=== PATIENT | male | born 1950 | race Caucasian/White ===

== ENCOUNTER 2018-05-05 11:03 | Inpatient (IN) | payer MEDICARE, OTHER, SELFPAY ==
[2018-05-05] VITALS (8 sets, daily range): BP systolic 111–156; BP diastolic 69–98; PULSE 77–99; RESP 15–98; TEMP 36.5–37.1; O2SAT 95–98; BMI 29.9; BMI 30.4
[2018-05-05] MEDS: 0.9% Normal Saline 1,000 ML 150 ML IV (11:57)
[2018-05-05 12:10] LABS: Absolute Neutrophil Count 4.6 X10^3/uL (2.0-7.7); Basophil# 0.02 X10^3/uL; Basophil% 0.3 % (0-1); Eosinophil# 0.16 X10^3/uL; Eosinophils% 2.4 % (0-5); Hemoglobin 13.1 g/dl (13.0-16.5); Lymphocyte % 17.8 % (19-41); Mean Corp Hgb Conc 33.6 g/gl (32-36); Mean Corpuscular Hgb 32.8 pg (27.0-32.0); Mean Corpuscular Volume 97.5 fL (80-94); Mean Platelet Vol. 12.2 fl (6.2-12.0); Monocyte# 0.81 X10^3/uL; Neutrophil # 4.56 X10^3/uL (2.7-7.7); Neutrophil % 67.4 % (47-70); Platelet Count 104 K/mm3 (150-450); RBC Distribution Width CV 13.1 % (11.6-14.6); RBC Distribution Width SD 45.9 fl (35.1-43.9); White Blood Count 6.8 K/mm3 (4.4-11.0)
[2018-05-05 12:14] LABS: POSITIVE COUNT NO; POSITIVE DIFFERENTIAL NO; POSITIVE MORPHOLOGY NO
[2018-05-05 12:28] LABS: Anion Gap 9 (5-15); BUN 25 mg/dL (7-18); BUN/Creat Ratio 21.2 RATIO (10-20); Calcium,Total 9.4 mg/dL (8.5-10.1); Chloride 100 mmol/L (98-107); Creatinine, Serum 1.18 mg/dL (0.70-1.30); EST Glomerular Filtration Rate 65 mL/min (>60); Est Glom Filt Rate - Afr Amer 79 mL/min (>60); Estimated Creatinine Clearance 61.01 ml/min; Glucose 109 mg/dL (74-106); Potassium 3.5 mmol/L (3.5-5.1); Sodium Level 139 mmol/L (136-145)
--- NOTE | 2018-05-05 13:20 | ED.VISSUMM ---
- ER Visit Summary Date of Service: 05/05/18 Chief Complaint: Hypotension, syncope History of Present Illness: The patient is a 67 M who developed back pain after lifting a pump last weekend. He was seen at the [facility] and had a syncopal event earlier this week. It was felt to likely be vasovagal syncope secondary to pain. He was sent to [facility] ED for evaluation. Labs were performed and a CT of abdomen and pelvis which were grossly unremarkable. Patient states he is still weak and lightheaded. He still gets episodes with near syncope and his blood pressure is very low. This morning when he is not feeling well blood pressure in the right arm is 90/50 and left arm is 86/48. Patient states his blood pressure is normal in the 140s. Physical Examination: Blood pressure is 111/69, temperature 97.7, heart rate 85, respiratory rate 16, pulse ox 98% on room air. Patient sitting upright in bed. He is in no acute distress. Heart is regular rate and rhythm. Lung sounds are clear. Abdomen is soft nontender. Extremity examination was 2+ left lower extremity edema which patient states is chronic and unchanged from baseline. Neuro exam reveals no focal deficits. Test Results: EKG is sinus 80 with no sign of acute ischemia. CBC and chemistry studies are unremarkable. Troponin negative. Chest x-ray shows borderline cardiomegaly. There is mildly tortuous aorta noted. Mild paratracheal mediastinal fullness is likely secondary to a thyroid goiter. Emergency Department Course and Treatment: Patient received IV fluids here. Blood pressure has maintained stable. I am unsure if the patient may be having arrhythmias where he becomes near syncopal with low blood pressure. I will speak with hospitalist regarding an observation stay overnight to monitor for this. Treatment Plan: [] Disposition: Admit Impression: 1. Recurrent dizziness 2. Recent syncope 3. Hypotension, improved This note was generated with [employer] dictation software. It may contain incorrect words, spelling, and punctuation that were not noted in review of the chart prior to signing ED Disposition - Plan for ED Patient: Chief Complaint: Hypotension Referrals: Herminio Yee MD [Primary Care Provider] -
--- NOTE | 2018-05-05 13:23 | ED.DCSUM_ITS ---
- ER Visit Summary Date of Service: 05/05/18 Chief Complaint: Hypotension, syncope History of Present Illness: The patient is a 67 M who developed back pain after lifting a pump last weekend. He was seen at the [facility] and had a syncopal event earlier this week. It was felt to likely be vasovagal syncope secondary to pain. He was sent to [facility] ED for evaluation. Labs were performed and a CT of abdomen and pelvis which were grossly unremarkable. Patient states he is still weak and lightheaded. He still gets episodes with near syncope and his blood pressure is very low. This morning when he is not feeling well blood pressure in the right arm is 90/50 and left arm is 86/48. Patient states his blood pressure is normal in the 140s. Physical Examination: Blood pressure is 111/69, temperature 97.7, heart rate 85 , respiratory rate 16, pulse ox 98% on room air. Patient sitting upright in bed. He is in no acute distress. Heart is regular rate and rhythm. Lung sounds are clear. Abdomen is soft nontender. Extremity examination was 2+ left lower extremity edema which patient states is chronic and unchanged from baseline. Neuro exam reveals no focal deficits. Test Results: EKG is sinus 80 with no sign of acute ischemia. CBC and chemistry studies are unremarkable. Troponin negative. Chest x-ray shows borderline cardiomegaly. There is mildly tortuous aorta noted. Mild paratracheal mediastinal fullness is likely secondary to a thyroid goiter. Emergency Department Course and Treatment: Patient received IV fluids here. Blood pressure has maintained stable. I am unsure if the patient may be having arrhythmias where he becomes near syncopal with low blood pressure. I will speak with hospitalist regarding an observation stay overnight to monitor for this. Treatment Plan: [] Disposition: Admit Impression: 1. Recurrent dizziness 2. Recent syncope 3. Hypotension, improved This note was generated with [employer] dictation software. It may contain incorrect words, spelling, and punctuation that were not noted in review of the chart prior to signing ED Disposition - Plan for ED Patient: Chief Complaint: Hypotension Referrals: Herminio Yee MD [Primary Care Provider] -
--- NOTE | 2018-05-05 13:48 | PCM.HP.STD ---
<Karina Swift - Last Filed: 05/05/18 15:43> Problem List (1) Hypertension Status: Chronic (2) Hyperlipidemia Status: Chronic (3) GERD (gastroesophageal reflux disease) Status: Chronic (4) CAD (coronary artery disease) Status: Chronic (5) COPD (chronic obstructive pulmonary disease) Status: Chronic (6) RAYRAY (obstructive sleep apnea) Status: Chronic (7) BPH (benign prostatic hyperplasia) Status: Chronic History of Present Illness Date of Admission: 05/05/18 Chief Complaint: Dizziness, low blood pressure, lower back pain. The patient is a 67 year old M who presents to the emergency room with multiple complaints including low blood pressure, dizziness, low back pain with radiation bilateral groin, lower extremity swelling. Patient notes last Tuesday he was lifting an object and feels that he injured his back. He has had significant lumbar pain since that time. He sought medical attention at the [facility] regarding his back pain and was noted to have a syncopal episode during office visit. He was transferred to [facility] at that time. He states he was discharged with no significant findings. He notes continued lower back pain with radiation to bilateral groin, a lateral lower extremity swelling and low blood pressure with associated dizziness. He denies chest pain, shortness of breath. Denies further syncopal episodes. Denies numbness, tingling. Denies loss of bowel or bladder function. He has a past medical history of hypertension, hyperlipidemia, CAD, COPD, BPH, RAYRAY, GERD. Past Medical History Past Medical History (Chronic Problems): Chronic Problems Hypertension (Chronic) Hyperlipidemia (Chronic) GERD (gastroesophageal reflux disease) (Chronic) CAD (coronary artery disease) (Chronic) COPD (chronic obstructive pulmonary disease) (Chronic) RAYRAY (obstructive sleep apnea) (Chronic) BPH (benign prostatic hyperplasia) (Chronic) Allergies No Known Allergies Allergy (Verified 05/05/18 11:59) Home Medications: Ambulatory Orders Medication Instructions Recorded Aspirin [Aspir-Low] 40.5 mg PO DAILY 06/29/17 Atorvastatin Calcium 10 mg PO QHS 06/29/17 Doxazosin Mesylate 8 mg PO QHS 06/29/17 Hydrochlorothiazide [Hctz] 25 mg PO DAILY 06/29/17 Omeprazole 20 mg PO DAILY 06/29/17 Docusate Sodium [Stool Softener] 100 mg PO DAILY PRN PRN 05/05/18 Naproxen Sodium [Anaprox Ds] 550 mg PO Q12H PRN PRN 05/05/18 Tizanidine HCl [Zanaflex] 4 mg PO Q8H PRN PRN 05/05/18 Surgical History: - - Left lung partial resection, bilateral cataract extraction, back surgery ?3, IVC filter placement. Psychiatric History: No pertinent psych hx Lives: Spouse/ Significant Other Smoking Status: Former smoker Alcohol: None Drugs: None - *Family History Maternal History Items: Stroke, - - Alzheimer's disease Paternal History Items: Diabetes, Stroke Review of Systems Constitutional: Denies: Chills, Fever, Weight Change HEENT: Denies: Head Aches, Sinus Congestion, Sinus Drainage Cardiovascular: Reports: Edema - Bilateral lower extremities, Light Headedness, Syncope. Denies: Chest Pain, Chest Pressure, Palpitations Respiratory: Denies: Cough, Shortness of breath at rest, Sputum production Gastrointestinal: Reports: Constipation. Denies: Abdominal Pain, Diarrhea, Nausea, Vomiting Genitourinary: Reports: Hesitancy. Denies: Dysuria, Incontinence Musculoskeletal: Reports: Back Pain - Lower Skin: Denies: Rash, Wounds Neurological: Denies: Numbness, Tingling, Focal weakness Psychiatric: Denies: Anxiety, Depression, Homicidal Ideations, Suicidal Ideations Hematologic/ Lymphatic: Denies: Easy Bruising, Easy Bleeding VTE Information - Inpt Only VTE Present on Admission: No VTE Mechan Device Prophylaxis: None VTE Pharm Prophylaxis ordered?: Yes - Physical Exam General: Alert, Oriented x3, Cooperative, No apparent distress HEENT: Atraumatic, PERRLA, EOMI, Normocephalic Neck: Supple, No JVD, Negative Carotid Bruits Lungs: Clear to auscultation, Diminished Cardiovascular: Regular rate, Regular Rhythm, Normal S1, Normal S2, No murmurs Abdomen: Bowel Sounds Present, Soft, Non Tender, Non-Distended, Obese Extremities: No clubbing, No cyanosis, Edema - Nonpitting bilateral extremity Skin: No rashes, No breakdown Musculoskeletal: No Tenderness to Palpation of Joints or Extremities Neurological: Cranial nerves II-XII grossly intact, Neuro grossly intact Psych/Mental Status: Normal Affect, Appropriate Vital Signs Temp Pulse Resp BP Pulse Ox 97.7 F L 77 15 156/98 H 97 05/05/18 11:04 05/05/18 13:43 05/05/18 13:43 05/05/18 13:43 05/05/18 13:43 Oxygen Delivery Method Room Air Weight: 209 lb Body Mass Index (BMI) 29.9 Laboratory Tests Past 24 Hrs 05/05/18 05/05/18 11:57 11:57 WBC 6.8 RBC 4.00 L Hgb 13.1 Hct 39.0 L MCV 97.5 H MCH 32.8 H MCHC 33.6 RDW 13.1 RDW Differential 45.9 H Plt Count 104 L MPV 12.2 H Immature Gran % (Auto) 0.100 Neut % (Auto) 67.4 Lymph % (Auto) 17.8 L [place] % (Auto) 12.0 H Eos % (Auto) 2.4 Baso % (Auto) 0.3 Absolute Neuts (auto) 4.6 Absolute Lymphs (auto) 1.20 Total Counted Not Reportable Sodium 139 Potassium 3.5 Chloride 100 Carbon Dioxide 30.0 Anion Gap 9 BUN 25 H Creatinine 1.18 Estim Creat Clear Calc 61.01 Est GFR (MDRD) Af Amer 79 Est GFR (MDRD) Non-Af 65 BUN/Creatinine Ratio 21.2 H Glucose 109 H Calcium 9.4 Troponin I < 0.015 Assessment/Plan 1. Recent syncope, recurrent dizziness-recent workup at [facility] included CT of abdomen pelvis due to lower abdominal and back pain which demonstrated evidence of cystitis, no other acute abnormalities. Troponin negative ?1. Repeat second troponin. Check UA. Check orthostatic vitals. Check TSH, mg. Obtain echocardiogram. 2. Acute on chronic lumbar back pain-history of back surgery ?3. Obtain MRI lumbar spine. PRN pain regimen. 3. CAD-cardiac cath in 2010 with no documented intervention, managed medically. Patient had recent stress test 01/16/2018 which was negative for ischemia which was completed at [facility]. LVEF 66%. Continue aspirin, statin. 4. Hypertension-stable, continue to monitor. Hold HCTZ regimen for now. 5. Hyperlipidemia-continue statin. 6. COPD-no acute exacerbation. 7. GERD-continue PPI regimen. 8. BPH-continue home doxazosin regimen. 9. History of tobacco use-encourage continued cessation. 10. RAYRAY-has not tolerated CPAP in the past. 11. 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 DVT prophylaxis-Lovenox subcu. This patient was seen by S[facility] Skelton under the supervision of Dr. Helton. <Mick Heltonolas Jose Carlos - Last Filed: 05/05/18 16:46> History of Present Illness The patient is a 67 year old M [] Past Medical History Allergies No Known Allergies Allergy (Verified 05/05/18 11:59) - Physical Exam Vital Signs Temp Pulse Resp BP Pulse Ox 97.7 F L 77 15 156/98 H 97 05/05/18 11:04 05/05/18 13:43 05/05/18 13:43 05/05/18 13:43 05/05/18 13:43 Oxygen Delivery Method Room Air Weight: 212 lb Body Mass Index (BMI) 30.4 Laboratory Tests Past 24 Hrs 05/05/18 05/05/18 15:25 15:35 Magnesium 2.1 Troponin I < 0.015 TSH 0.44 Urine Color Yellow Urine Clarity Clear Urine pH 6.5 Ur Specific [place] 1.010 Urine Protein Negative Urine Glucose (UA) Normal Urine Ketones Negative Urine Occult Blood Negative Urine Nitrite Negative Urine Bilirubin Negative Urine Urobilinogen Normal Ur Leukocyte Esterase Negative Urine RBC 0 SEEN Urine WBC 0 SEEN Ur Squamous Epith Cells 0 SEEN Urine Bacteria 0 SEEN Urine Mucus 0 SEEN Assessment/Plan Addendum: Dr. Helton I personally examined the patient and reviewed the chart. I agree with the above. 67 yo M [facility] and [facility] to [facility] who felt this was vasovagal. He presents today after having weakness and bilateral groin pain and ankle swelling. No SOB or CP General: Alert, Oriented x3, Cooperative, No apparent distress HEENT: Atraumatic, EOMI, Normocephalic Oral: Moist Mucosa Neck: Supple, No JVD Lungs: Clear to auscultation, Normal air movement, No rhonchi, No wheeze, No rales Cardiovascular: Regular rate, Regular Rhythm, Normal S1, Normal S2, No murmurs Abdomen: Soft, Non Tender, Non-Distended, No Hepato-splenomegaly Extremities: 2+ non-pitting edema, Capillary Refill Less than 3 Seconds Skin: No rashes, No breakdown Psych/Mental Status: Normal Affect, Appropriate 1. Weakness/Groin pain/Syncope - Troponinx2 negative - Doppler US of his legs so b/l extensive DVTs - Start Xarelto - Echo in the am - Telemetry and orthostatic VS Code Visit Inpatient E&M: 68146 Init Hosp L3
[2018-05-05 15:43] LABS: Bacteria 0 SEEN /hpf (None Seen); Mucous, Urine 0 SEEN /hpf (<or=2+); Red Blood Cells-Urine 0 SEEN /hpf (0-5); Squamous Epithelial Cells - UA 0 SEEN /hpf (0-5); White Blood Cells 0 SEEN /hpf (0-5)
[2018-05-05 15:50] LABS: Color, Urine Yellow (Yellow); Glucose, Dipstick Normal (Normal); Ketone-Dipstick Negative (Negative); Leukocyte Esterase-Dipstick Negative /ul (Negative); Nitrite-Dipstick Negative (Negative); Occult Blood-Urine Negative /ul (Negative); Protein-Dipstick Negative (Negative); Urine Bilirubin Dipstick Negative (Negative); Urine Clarity Clear (Clear); Urine Urobilinogen Normal (Normal); Urine pH 6.5 (5.0 - 8.0)
[2018-05-05 16:21] LABS: Magnesium 2.1 mg/dL (1.6-2.6); Thyroid Stim Hormone (TSH) 0.44 uIU/mL (0.358-3.74)
[2018-05-05] MEDS: Rivaroxaban 15 MG Tablet PO (17:41)
[2018-05-05] MEDS: 0.9% Normal Saline 1,000 ML 100 ML IV (17:41)
[2018-05-05] MEDS: Atorvastatin Calcium 10 MG Tablet PO (22:46)
[2018-05-05] MEDS: Doxazosin 4 MG Tablet 8 MG PO (22:46)
[2018-05-06] VITALS (12 sets, daily range): BP systolic 108–162; BP diastolic 70–94; PULSE 55–96; RESP 16; TEMP 36.4–36.5; O2SAT 94–97
[2018-05-06] MEDS: 0.9% Normal Saline 1,000 ML 100 ML IV ×2 (03:45→16:31)
[2018-05-06 05:37] LABS: Absolute Neutrophil Count 4.1 X10^3/uL (2.0-7.7); Basophil# 0.02 X10^3/uL; Basophil% 0.3 % (0-1); Eosinophil# 0.26 X10^3/uL; Eosinophils% 3.7 % (0-5); Hematocrit 36.5 % (40-54); Hemoglobin 12.3 g/dl (13.0-16.5); Lymphocyte % 25.8 % (19-41); Mean Corp Hgb Conc 33.7 g/gl (32-36); Mean Corpuscular Hgb 33.1 pg (27.0-32.0); Mean Corpuscular Volume 98.1 fL (80-94); Mean Platelet Vol. 11.9 fl (6.2-12.0); Monocyte# 0.78 X10^3/uL; Monocyte% 11.2 % (0-10); Neutrophil % 58.9 % (47-70); Platelet Count 104 K/mm3 (150-450); RBC Distribution Width CV 13.2 % (11.6-14.6); RBC Distribution Width SD 46.4 fl (35.1-43.9); Red Blood Count 3.72 M/mm3 (4.6-6.2)
[2018-05-06 05:40] LABS: POSITIVE COUNT NO; POSITIVE DIFFERENTIAL NO; POSITIVE MORPHOLOGY NO
[2018-05-06 05:54] LABS: ALB/GLOB Ratio 1.3 RATIO (0.9-2.4); AST(SGOT) 16 U/L (15-37); Alanine Aminotransfer ALT/SGPT 18 U/L (16-61); Albumin, Serum 3.6 g/dL (3.2-5.0); Alkaline Phosphatase 92 U/L (45-117); Anion Gap 8 (5-15); BUN 24 mg/dL (7-18); BUN/Creat Ratio 22.9 RATIO (10-20); Calcium,Total 8.9 mg/dL (8.5-10.1); Chloride 105 mmol/L (98-107); Creatinine, Serum 1.05 mg/dL (0.70-1.30); EST Glomerular Filtration Rate 74 mL/min (>60); Est Glom Filt Rate - Afr Amer 90 mL/min (>60); Estimated Creatinine Clearance 68.56 ml/min; Globulin 2.8 g/dL (2.2-4.2); Glucose 94 mg/dL (74-106); Potassium 3.4 mmol/L (3.5-5.1); Protein, Total 6.4 g/dL (6.4-8.2); Sodium Level 140 mmol/L (136-145)
[2018-05-06] MEDS: Aspirin E.C. 81 MG Tablet PO (08:58)
[2018-05-06] MEDS: Rivaroxaban 15 MG Tablet PO ×2 (08:59→16:31)
[2018-05-06] MEDS: Pantoprazole Sodium 20 MG Tablet PO (08:59)
[2018-05-06] MEDS: tiZANidine HCl 2 MG Tablet 4 MG PO (08:59)
--- NOTE | 2018-05-06 10:22 | CASEMGMT ---
RN CM assessment complete. See Link. DC Plan: Home -Intro role of CM to patient and his . Discussed needs at home. They decline any needs at this time, pt has walker and can provide transportation. -Discussed possible need for Xarelto per [employer]. Pt uses [facility] for prescriptions. Will need to have prescription filled @ local pharmacy ([facility]). Xarelto savings card given to patient, however can not guarentee discount as pt does not have any commercial or medicare drug coverage. If Xarelto savings card does not provide discount, recommended pt have pharmacy do partial fill of script and then go to [place] for rest of prescription. Reviewed above with pt and his . No further questions. Ganga SMITHN RN ACM
[2018-05-06 11:31] LABS: PSA,Total- Diagnostic 1.11 ng/mL (0.0-4.0)
--- NOTE | 2018-05-06 12:49 | PCM.PROGNOTE ---
<Karina Swift - Last Filed: 05/06/18 12:56> Subjective: Patient seen and examined. Denies further dizziness. Continues to complain of lower back pain, increased with movement. Denies other current complaints. Denies chest pain, shortness of breath. - Physical Exam General: Alert, Oriented x3, Cooperative, No apparent distress HEENT: Atraumatic, PERRLA, EOMI, Normocephalic Neck: Supple, No JVD, Negative Carotid Bruits Lungs: Clear to auscultation, Normal air movement Cardiovascular: Regular rate, Regular Rhythm, Normal S1, Normal S2, No murmurs Abdomen: Bowel Sounds Present, Soft, Non Tender, Non-Distended, Obese Extremities: No clubbing, No cyanosis, Capillary Refill Less than 3 Seconds, Edema - Minimal nonpitting lower extremity edema Skin: No rashes, No breakdown Musculoskeletal: No Tenderness to Palpation of Joints or Extremities Neurological: Cranial nerves II-XII grossly intact, Neuro grossly intact Psych/Mental Status: Normal Affect, Appropriate Vital Signs Temp Pulse Resp BP Pulse Ox 97.7 F L 55 L 16 115/75 96 05/06/18 10:30 05/06/18 11:03 05/06/18 10:30 05/06/18 10:30 05/06/18 10:30 Oxygen Delivery Method Room Air Weight: 212 lb Body Mass Index (BMI) 30.4 Orthostatic Vital Signs Start: 05/06/18 04:47 Freq: q24h Status: Active Protocol: Activity Type Activity Date Activity User E-Sign Co-Sign Detail Recorded Client Recorded Date Recorded By Document 05/06/18 04:35 CAD [id number] 05/06/18 04:48 CAD 05/06/18 04:35 Orthostatic Vitals Standing -Blood Pressure (90/60-120/80) 108/78 -Extremity Use Right Arm -Pulse Rate (60-100) 96 Sitting -Blood Pressure (90/60-120/80) 110/80 -Extremity Use Right Arm -Pulse Rate (60-100) 91 Lying -Blood Pressure (90/60-120/80) 135/73 H -Extremity Use Right Arm -Pulse Rate (60-100) 90 Intake and Output for Last 24 Hours 05/04/18 05/05/18 05/06/18 23:59 23:59 23:59 Intake Total 680 / 680 1430 / 1430 Balance 680 / 680 1430 / 1430 Laboratory Tests Past 24 Hrs 05/05/18 05/05/18 05/06/18 15:25 15:35 05:14 WBC 7.0 RBC 3.72 L Hgb 12.3 L Hct 36.5 L MCV 98.1 H MCH 33.1 H MCHC 33.7 RDW 13.2 RDW Differential 46.4 H Plt Count 104 L MPV 11.9 Immature Gran % (Auto) 0.100 Neut % (Auto) 58.9 Lymph % (Auto) 25.8 Creek % (Auto) 11.2 H Eos % (Auto) 3.7 Baso % (Auto) 0.3 Absolute Neuts (auto) 4.1 Absolute Lymphs (auto) 1.80 Total Counted Not Reportable Sodium Potassium Chloride Carbon Dioxide Anion Gap BUN Creatinine Estim Creat Clear Calc Est GFR (MDRD) Af Amer Est GFR (MDRD) Non-Af BUN/Creatinine Ratio Glucose Calcium Magnesium 2.1 Total Bilirubin AST ALT Alkaline Phosphatase Troponin I < 0.015 Total Protein Albumin Globulin Albumin/Globulin Ratio Total PSA TSH 0.44 Urine Color Yellow Urine Clarity Clear Urine pH 6.5 Ur Specific [place] 1.010 Urine Protein Negative Urine Glucose (UA) Normal Urine Ketones Negative Urine Occult Blood Negative Urine Nitrite Negative Urine Bilirubin Negative Urine Urobilinogen Normal Ur Leukocyte Esterase Negative Urine RBC 0 SEEN Urine WBC 0 SEEN Ur Squamous Epith Cells 0 SEEN Urine Bacteria 0 SEEN Urine Mucus 0 SEEN 05/06/18 05/06/18 05:14 05:14 WBC RBC Hgb Hct MCV MCH MCHC RDW RDW Differential Plt Count MPV Immature Gran % (Auto) Neut % (Auto) Lymph % (Auto) Creek % (Auto) Eos % (Auto) Baso % (Auto) Absolute Neuts (auto) Absolute Lymphs (auto) Total Counted Sodium 140 Potassium 3.4 L Chloride 105 Carbon Dioxide 27.0 Anion Gap 8 BUN 24 H Creatinine 1.05 Estim Creat Clear Calc 68.56 Est GFR (MDRD) Af Amer 90 Est GFR (MDRD) Non-Af 74 BUN/Creatinine Ratio 22.9 H Glucose 94 Calcium 8.9 Magnesium Total Bilirubin 1.00 AST 16 ALT 18 Alkaline Phosphatase 92 Troponin I Total Protein 6.4 Albumin 3.6 Globulin 2.8 Albumin/Globulin Ratio 1.3 Total PSA 1.11 TSH Urine Color Urine Clarity Urine pH Ur Specific [place] Urine Protein Urine Glucose (UA) Urine Ketones Urine Occult Blood Urine Nitrite Urine Bilirubin Urine Urobilinogen Ur Leukocyte Esterase Urine RBC Urine WBC Ur Squamous Epith Cells Urine Bacteria Urine Mucus Medical Necessity - Tobacco Use Smoking Status: Former smoker Tobacco Use: Cigarettes Assessment/Plan 1. Acute bilateral extensive DVT/right PE-initiated on Xarelto. Patient has a history of PE/DVT status post IVC filter placement approximately 10 years ago. Pulmonary consulted. CT of chest showed pulmonary embolism on the right. Patient denies chest pain, shortness of breath. Echocardiogram report pending. 2. Hypotension, dizziness-improved. Recent syncopal episode in which patient underwent workup at [facility] included CT of abdomen pelvis due to lower abdominal and back pain which demonstrated evidence of cystitis, no other acute abnormalities. Troponin negative ?2. UA unremarkable. Orthostatic vitals negative. Echocardiogram pending as noted above. 2. Acute on chronic lumbar back pain-history of back surgery ?3. MRI of lumbar spine showed small L4-L5 disc extrusion, status post left laminectomy at L5-S1, L5-S1 foraminal stenosis. 3. CAD-cardiac cath in 2010 with no documented intervention, managed medically. Patient had recent stress test 01/16/2018 which was negative for ischemia which was completed at [facility]. LVEF 66%. Continue aspirin, statin. 4. Hypertension-stable, continue to monitor. Hold HCTZ regimen for now. 5. Hyperlipidemia-continue statin. 6. COPD-no acute exacerbation. 7. GERD-continue PPI regimen. 8. BPH-continue home doxazosin regimen. 9. History of tobacco use-encourage continued cessation. 10. RAYRAY-has not tolerated CPAP in the past. DVT prophylaxis-Xarelto. This patient was seen by [facility] Skelton under the supervision of Dr. Berry. <Nancy Berry - Last Filed: 05/06/18 15:52> - Physical Exam Vital Signs Temp Pulse Resp BP Pulse Ox 97.7 F L 55 L 16 115/75 96 05/06/18 10:30 05/06/18 11:03 05/06/18 10:30 05/06/18 10:30 05/06/18 10:30 Oxygen Delivery Method Room Air Weight: 212 lb Body Mass Index (BMI) 30.4 Orthostatic Vital Signs Start: 05/06/18 04:47 Freq: q24h Status: Active Protocol: Activity Type Activity Date Activity User E-Sign Co-Sign Detail Recorded Client Recorded Date Recorded By Document 05/06/18 04:35 CAD [id number] 05/06/18 04:48 CAD 05/06/18 04:35 Orthostatic Vitals Standing -Blood Pressure (90/60-120/80) 108/78 -Extremity Use Right Arm -Pulse Rate (60-100) 96 Sitting -Blood Pressure (90/60-120/80) 110/80 -Extremity Use Right Arm -Pulse Rate (60-100) 91 Lying -Blood Pressure (90/60-120/80) 135/73 H -Extremity Use Right Arm -Pulse Rate (60-100) 90 Intake and Output for Last 24 Hours 05/04/18 05/05/18 05/06/18 23:59 23:59 23:59 Intake Total 680 / 680 1430 / 1430 Balance 680 / 680 1430 / 1430 Laboratory Tests Past 24 Hrs 05/05/18 05/05/18 05/06/18 15:25 15:35 05:14 WBC 7.0 RBC 3.72 L Hgb 12.3 L Hct 36.5 L MCV 98.1 H MCH 33.1 H MCHC 33.7 RDW 13.2 RDW Differential 46.4 H Plt Count 104 L MPV 11.9 Immature Gran % (Auto) 0.100 Neut % (Auto) 58.9 Lymph % (Auto) 25.8 Creek % (Auto) 11.2 H Eos % (Auto) 3.7 Baso % (Auto) 0.3 Absolute Neuts (auto) 4.1 Absolute Lymphs (auto) 1.80 Total Counted Not Reportable Sodium Potassium Chloride Carbon Dioxide Anion Gap BUN Creatinine Estim Creat Clear Calc Est GFR (MDRD) Af Amer Est GFR (MDRD) Non-Af BUN/Creatinine Ratio Glucose Calcium Magnesium 2.1 Total Bilirubin AST ALT Alkaline Phosphatase Troponin I < 0.015 Total Protein Albumin Globulin Albumin/Globulin Ratio Total PSA TSH 0.44 Urine Color Yellow Urine Clarity Clear Urine pH 6.5 Ur Specific [place] 1.010 Urine Protein Negative Urine Glucose (UA) Normal Urine Ketones Negative Urine Occult Blood Negative Urine Nitrite Negative Urine Bilirubin Negative Urine Urobilinogen Normal Ur Leukocyte Esterase Negative Urine RBC 0 SEEN Urine WBC 0 SEEN Ur Squamous Epith Cells 0 SEEN Urine Bacteria 0 SEEN Urine Mucus 0 SEEN 05/06/18 05/06/18 05:14 05:14 WBC RBC Hgb Hct MCV MCH MCHC RDW RDW Differential Plt Count MPV Immature Gran % (Auto) Neut % (Auto) Lymph % (Auto) Creek % (Auto) Eos % (Auto) Baso % (Auto) Absolute Neuts (auto) Absolute Lymphs (auto) Total Counted Sodium 140 Potassium 3.4 L Chloride 105 Carbon Dioxide 27.0 Anion Gap 8 BUN 24 H Creatinine 1.05 Estim Creat Clear Calc 68.56 Est GFR (MDRD) Af Amer 90 Est GFR (MDRD) Non-Af 74 BUN/Creatinine Ratio 22.9 H Glucose 94 Calcium 8.9 Magnesium Total Bilirubin 1.00 AST 16 ALT 18 Alkaline Phosphatase 92 Troponin I Total Protein 6.4 Albumin 3.6 Globulin 2.8 Albumin/Globulin Ratio 1.3 Total PSA 1.11 TSH Urine Color Urine Clarity Urine pH Ur Specific [place] Urine Protein Urine Glucose (UA) Urine Ketones Urine Occult Blood Urine Nitrite Urine Bilirubin Urine Urobilinogen Ur Leukocyte Esterase Urine RBC Urine WBC Ur Squamous Epith Cells Urine Bacteria Urine Mucus Assessment/Plan She is seen by Karina Swift nurse practitioner under my supervision. Patient admitted with complaint of low blood pressure, dizziness and low back pain which radiated to the groin as well as bilateral lower extremity swelling. Duplex ultrasound done was positive for extensive DVT in the left lower extremity and also some DVT in the right lower extremity. CT PE done today was positive for right-sided segmental pulmonary emboli. Patient seen and examined today. He had no complaints. Lightheadedness and dizziness had resolved. He denied any fever chills, cough or chest pain, shortness of breath, abdominal pain, diarrhea vomiting. Patient's blood pressure has been within normal range since admission. His hydrochlorothiazide has been on hold. He had syncope at the [facility] after he strained his back a week ago and was also seen at [facility] on that account. Blood pressure was not low when he came and he has not been hypotensive since this admission. Based on history of hypotension, there was concern for massive PE but this has been ruled out by her PCP and and only a small segmental right pulmonary artery. Patient also has a IVC filter in place from a previous DVT about 10 years ago. He stopped taking his oral anticoagulants after about a year and has pretty much been noncompliant since. He has had an old IVC filter in place and it has never been removed. Patient unable to give us any further history about the DVT and felt. o/e: Vital Signs Height 5 ft 10 in Weight: 212 lb Weight in Pounds 212.0 lbs Pulse Ox 96 Temperature 97.7 F Pulse Rate [Standing] 96 Pulse Rate [Sitting] 91 Pulse Rate [Lying] 90 Pulse Rate 55 Respiratory Rate 16 Blood Pressure [Standing] 108/78 Blood Pressure [Sitting] 110/80 Blood Pressure [Lying] 135/73 Blood Pressure 115/75 Blood Pressure Position Semi-Fowlers General: Alert, Oriented x3, Cooperative, No apparent distress HEENT: Atraumatic, PERRLA, EOMI, Normocephalic Neck: Supple, No JVD, Negative Carotid Bruits Lungs: Clear to auscultation, Normal air movement Cardiovascular: Regular rate, Regular Rhythm, Normal S1, Normal S2, No murmurs Abdomen: Bowel Sounds Present, Soft, Non Tender, Non-Distended, Obese Extremities: No clubbing, No cyanosis, Capillary Refill Less than 3 Seconds, Edema - Minimal nonpitting lower extremity edema Skin: No rashes, No breakdown Musculoskeletal: No Tenderness to Palpation of Joints or Extremities Neurological: Cranial nerves II-XII grossly intact, Neuro grossly intact Psych/Mental Status: Normal Affect, Appropriate Patient is being managed for bilateral DVT and PE. It does appear to be an unprovoked DVT. CT of the abdomen and pelvis done while he was at [facility] on 05/03/2018 for syncopal attack was negative for any evidence of malignancy- checked in [facility] and copy printed for records here. CT PE done today also showed no evidence of any lung mass. PSAs within normal limits. Says he had a colonoscopy within the last 10 years that was normal-not sure where he had it done. 2D echo done showed moderate LV concentric hypertrophy with EF of 55-60%, mildly dilated RV with normal systolic function, mildly enlarged left atrium, RVSP of 40mmHg, indicating pulmonary hypertension. Patient was started on anticoagulation with Xarelto. Will continue. Discussed with pulmonology. IVC filter has been replaced with a locked so likely need to be removed by an experienced vascular surgeon. Will refer to vascular surgery and outpatient basis to follow-up. Will defer hypercoagulability panel for now in light of acute phase of DVT. Will likely need anticoagulation for lifelong as this is a second DVT. When able to get any information about first DVT about whether was provoked or unprovoked. This current DVT does not seem to have a clear provoking factor. Since PE is quite small, it is unclear whether the elevated RVSP of 40mmHg is due to this, or there is another precipitating factor. Will benefit from a follow up 2D echo in 3-6 months to monitor RVSP. Agree with rest of Karina Swift's note, assessment and plan. Code Visit Inpatient E&M: [id number] Subs Hosp L3
[2018-05-06] MEDS: oxyCODONE 5 MG Tablet PO ×2 (17:38→22:24)
[2018-05-06] MEDS: Acetaminophen 500 MG Tablet PO (17:41)
[2018-05-06] MEDS: Docusate Sodium 100 MG Capsule PO (17:46)
[2018-05-06] MEDS: Atorvastatin Calcium 10 MG Tablet PO (22:24)
[2018-05-06] MEDS: Doxazosin 4 MG Tablet 8 MG PO (22:24)
[2018-05-06] MEDS: Magnesium Hydroxide 30 ML UDC PO (22:25)
[2018-05-07] VITALS (7 sets, daily range): BP systolic 112–148; BP diastolic 68–91; PULSE 82–96; RESP 16–18; TEMP 36.8–37.1; O2SAT 96–98
[2018-05-07] MEDS: 0.9% Normal Saline 1,000 ML 100 ML IV (01:45)
[2018-05-07] MEDS: oxyCODONE 5 MG Tablet PO ×2 (04:16→08:47)
[2018-05-07 05:50] LABS: Hematocrit 35.9 % (40-54); Hemoglobin 11.9 g/dl (13.0-16.5); Mean Corp Hgb Conc 33.1 g/gl (32-36); Mean Corpuscular Volume 99.4 fL (80-94); Mean Platelet Vol. 11.6 fl (6.2-12.0); Platelet Count 126 K/mm3 (150-450); RBC Distribution Width CV 13.2 % (11.6-14.6); RBC Distribution Width SD 47.1 fl (35.1-43.9); Red Blood Count 3.61 M/mm3 (4.6-6.2); White Blood Count 6.5 K/mm3 (4.4-11.0)
[2018-05-07 05:55] LABS: Scan Indicated on CBC? Y/N NO
[2018-05-07 06:00] LABS: Anion Gap 10 (5-15); BUN 19 mg/dL (7-18); BUN/Creat Ratio 18.4 RATIO (10-20); Calcium,Total 8.7 mg/dL (8.5-10.1); Chloride 106 mmol/L (98-107); Creatinine, Serum 1.03 mg/dL (0.70-1.30); EST Glomerular Filtration Rate 76 mL/min (>60); Est Glom Filt Rate - Afr Amer 92 mL/min (>60); Estimated Creatinine Clearance 69.89 ml/min; Glucose 93 mg/dL (74-106); Potassium 3.7 mmol/L (3.5-5.1); Sodium Level 143 mmol/L (136-145)
[2018-05-07] MEDS: Rivaroxaban 15 MG Tablet PO (08:43)
--- NOTE | 2018-05-07 10:02 | PCM.DC ---
- Discharge Diagnoses Current Active Problems: Current Active and Chronic Problems Hypertension (Chronic) Hyperlipidemia (Chronic) GERD (gastroesophageal reflux disease) (Chronic) CAD (coronary artery disease) (Chronic) COPD (chronic obstructive pulmonary disease) (Chronic) RAYRAY (obstructive sleep apnea) (Chronic) BPH (benign prostatic hyperplasia) (Chronic) You will use the following diet at home:: Cardiac Discharge Activity: Return to Normal Activity Call your doctor if you observe: Shortness of breath, Dizziness, Fainting spells, Chest pain, Increased palpitations (irregular heartbeat) Allergies/Adverse Reactions: Allergies No Known Allergies Allergy (Verified 05/05/18 11:59) Medications to take at Discharge Aspirin [Aspir-Low] 40.5 mg PO DAILY 06/29/17 Atorvastatin Calcium 10 mg PO QHS 06/29/17 Doxazosin Mesylate 8 mg PO QHS 06/29/17 Hydrochlorothiazide [Hctz] 25 mg PO DAILY 06/29/17 Omeprazole 20 mg PO DAILY 06/29/17 Docusate Sodium [Stool Softener] 100 mg PO DAILY PRN PRN 05/05/18 Tizanidine HCl [Zanaflex] 4 mg PO Q8H PRN PRN 05/05/18 Oxycodone [Oxyir] 5 mg PO Q4H PRN PRN 3 Days #18 tablet 05/07/18 Rivaroxaban [Xarelto] 15 mg PO BIDCM #38 tab 05/07/18 The following prescriptions were given: Oxycodone [Oxyir] 5 mg PO Q4H PRN PRN 3 Days #18 tablet PRN Reason: Severe Pain (6-10/10) Rivaroxaban [Xarelto] 15 mg PO BIDCM #38 tab Primary Care Physician: Herminio Yee MD [Primary Care Provider] - Please follow up with your Primary Care Physician in: 1 Week Test Results: Test results from this visit will be discussed in further detail at your follow-up appointment, if applicable. Please Follow Up With: [facility] When: This week, 2-3 days Proposed Discharge Date: 05/07/18
--- NOTE | 2018-05-07 10:10 | PCM.DC.SUM ---
<Karina Swift - Last Filed: 05/07/18 11:00> Discharge Date and Diagnosis Date of Admission: 05/05/18 Date of Discharge: 05/07/18 - Primary Discharge Diagnosis 1. Acute bilateral DVT, right PE 2. Hypotension 2. Acute lumbar back pain secondary to lumbar strain on chronic back pain - Secondary Discharge Diagnosis Chronic Problems Hypertension (Chronic) Hyperlipidemia (Chronic) GERD (gastroesophageal reflux disease) (Chronic) CAD (coronary artery disease) (Chronic) COPD (chronic obstructive pulmonary disease) (Chronic) RAYRAY (obstructive sleep apnea) (Chronic) BPH (benign prostatic hyperplasia) (Chronic) Hospital Course and Treatment Imaging Results: Diagnostic Data Chest X-Ray 05/05/18 11:45 IMPRESSION: 1. Borderline to mild cardiac enlargement with mildly tortuous, calcified thoracic aorta. No CHF. 2. Scarring versus subsegmental atelectasis in the right lung base and left apex. Calcified granuloma also noted in the right lower lobe. 3. Right paratracheal mediastinal fullness, likely a thyroid goiter. Correlation with thyroid ultrasound may be useful. Electronically Signed: Rikki Shukla MD at 12:22 EDT , Service support , Lumbar Spine MRI 05/05/18 15:41 IMPRESSION: 1. Small L4-5 disc extrusion. 2. Status post left laminectomy at L5-S1. Residual scar is not evaluated without contrast. 3. L5-S1 foraminal stenosis. Electronically Signed: Mayra Brown MD at 18:42 EDT Tel , Service support , Chest CTA 05/06/18 09:11 IMPRESSION: Pulmonary embolism on the right. N.B. : The above information has been verbally conveyed by Houston Felix MD to Dr. Berry, Referring Physician, on 05/06/2018 10:47:55 (ET). Electronically Signed: Houston Felix MD at 10:18 EDT , Service support , KUB X-Ray 05/06/18 14:30 IMPRESSION: IVC filter in situ. No acute process. Electronically Signed: Mayra Brown MD at 19:07 EDT Tel , Service support , Summary of Care Provided: The patient is a 67 year old M admitted 05/05/2018 due to dizziness, low blood pressure, lower back pain. 1. Acute bilateral extensive DVT/right PE-initiated on Xarelto. Patient has a history of PE/DVT status post IVC filter placement approximately [address] of chest showed pulmonary embolism on the right. Patient denies chest pain, shortness of breath. Echocardiogram showed an EF of 55-60%, RVSP estimated to be 40 mmHg. KUB showed prior IVC filter intact. DVT/PE appear unprovoked. Recommend further outpatient evaluation, hematology referral including hypercoagulable panel. Patient will be discharged on Xarelto 15 mg twice daily for 21 days. Stop date 05/26/18. He will then take Xarelto 20 mg daily. [facility] and will obtain further prescriptions through them. Follow-up with primary care physician in 2-3 days. 2. Hypotension, dizziness-resolved. Recent syncopal episode in which patient underwent workup at [facility] included CT of abdomen pelvis due to lower abdominal and back pain which demonstrated evidence of cystitis, no other acute abnormalities. Troponin negative ?2. UA unremarkable. Orthostatic vitals negative. Echocardiogram showed an EF of 55-60%, RVSP estimated to be 40 mmHg. 2. Acute on chronic lumbar back pain-history of back surgery ?3. MRI of lumbar spine showed small L4-L5 disc extrusion, status post left laminectomy at L5-S1, L5-S1 foraminal stenosis. Patient had recent injury with lumbar back strain. Discharged with OxyIR 5 mg every 4 as needed times 3 days until patient is able to see primary care physician. OARRS report showed no prior narcotic prescriptions. If back pain does not improve, patient my benefit from steroid burst to see if this provides some relief. 3. CAD-cardiac cath in 2010 with no documented intervention, managed medically. Patient had recent stress test 01/16/2018 which was negative for ischemia which was completed at [facility]. LVEF 66%. Continue aspirin, statin. 4. Hypertension-stable, continue home HCTZ regimen at discharge. 5. Hyperlipidemia-continue statin. 6. COPD-no acute exacerbation. 7. GERD-continue PPI regimen. 8. BPH-continue home doxazosin regimen. 9. History of tobacco use-encourage continued cessation. 10. RAYRAY-has not tolerated CPAP in the past. General: Alert, Oriented x3, Cooperative, No apparent distress HEENT: Atraumatic, PERRLA, EOMI, Normocephalic Neck: Supple, No JVD, Negative Carotid Bruits Lungs: Clear to auscultation, Normal air movement Cardiovascular: Regular rate, Regular Rhythm, Normal S1, Normal S2, No murmurs Abdomen: Bowel Sounds Present, Soft, Non Tender, Non-Distended, Obese Extremities: No clubbing, No cyanosis, Capillary Refill Less than 3 Seconds, Edema - Minimal nonpitting lower extremity edema Skin: No rashes, No breakdown Musculoskeletal: No Tenderness to Palpation of Joints or Extremities Neurological: Cranial nerves II-XII grossly intact, Neuro grossly intact Psych/Mental Status: Normal Affect, Appropriate Patient seen exam prior to discharge. Physical assessment as noted above. Patient is stable for discharge home with the follow-up recommendations as noted above. This patient was seen by SOHA Skelton under the supervision of Dr. Berry. Discharge Diet: Low fat/ Low Cholesterol Discharge Activity: Return to Normal Activity Call your doctor if you observe: Shortness of breath, Dizziness, Fainting spells, Chest pain, Increased palpitations (irregular heartbeat) Home Medications: Medications to take at Discharge Aspirin [Aspir-Low] 40.5 mg PO DAILY 06/29/17 Atorvastatin Calcium 10 mg PO QHS 06/29/17 Doxazosin Mesylate 8 mg PO QHS 06/29/17 Hydrochlorothiazide [Hctz] 25 mg PO DAILY 06/29/17 Omeprazole 20 mg PO DAILY 06/29/17 Docusate Sodium [Stool Softener] 100 mg PO DAILY PRN PRN 05/05/18 Tizanidine HCl [Zanaflex] 4 mg PO Q8H PRN PRN 05/05/18 Oxycodone [Oxyir] 5 mg PO Q4H PRN PRN 3 Days #18 tablet 05/07/18 Rivaroxaban [Xarelto] 15 mg PO BIDCM #38 tab 05/07/18 Following Prescrptions Were Given to Patient: Oxycodone [Oxyir] 5 mg PO Q4H PRN PRN 3 Days #18 tablet PRN Reason: Severe Pain (6-06/14) Rivaroxaban [Xarelto] 15 mg PO BIDCM #38 tab Primary Care Physician: Herminio Yee MD [Primary Care Provider] - Please follow up with your Primary Care Physician in: 1 Week Please Follow Up With: [facility] When: This week, 2-3 days Disposition: Home Minutes spent on discharge:: 35 Patient Condition:: Stable Medical Necessity - Tobacco Use Smoking Status: Former smoker Tobacco Use: Cigarettes Meaningful Use Info Meaningful Use Diagnoses (Choose all that apply): VTE - VTE Anticoag overlap given w/in hospital stay or rx'd at dc?: Yes Pt receive overlap for 5 days?: Yes <KristiNancy Reida - Last Filed: 05/07/18 12:50> Discharge Date and Diagnosis - Secondary Discharge Diagnosis Chronic Problems Hypertension (Chronic) Hyperlipidemia (Chronic) GERD (gastroesophageal reflux disease) (Chronic) CAD (coronary artery disease) (Chronic) COPD (chronic obstructive pulmonary disease) (Chronic) RAYRAY (obstructive sleep apnea) (Chronic) BPH (benign prostatic hyperplasia) (Chronic) Hospital Course and Treatment Operations: None Procedures: 2-D Echocardiogram Summary of Care Provided: Patient seen by Karina HOYOS under my supervision. The patient is a 67 year old M was admitted by the ED with complaint of low blood pressure, dizziness and low back pain with radiation to the groin and bilateral lower extremity swelling. Duplex was positive for extensive DVT in the left lower extremity and DVT in the right lower extremity. CT PE done was positive for right-sided segmental pulmonary emboli. Patient was started on Xarelto. Hydrochlorothiazide was initially held on account of hypotension. Hypotension subsequently resolved. He had been seen at [facility] in [place] on 05/03/[address] PE done then which was negative for any possible malignancy. He had a colonoscopy 2 years ago which was normal. 2D echo showed moderate left ventricular hypertrophy with EF of 55-60% with mildly dilated right ventricle and RSVP of 40 mmHg indicating pulmonary hypertension. Patient was managed for DVT and PE which appeared to be unprovoked. As this is a second DVT and PE, patient was advised that he would need lifelong anticoagulation. Patient had an IVC filter in place from his first PE 10 years ago. Discussed with general surgery and recommended that he follow-up with a vascular surgeon to see if removal of the filter was indicated. Patient was discharged on Xarelto 20 mg twice daily for 21 days after which she was going to continue Xarelto 20 mg daily. Patient states care doctor at the [facility] within 1 week to get further scripts for xarelto filled. Patient seen and examined prior to discharge. He had no complaints and felt well. He denied any fever, chills, cough, chest pain, shortness of breath, abdominal pain, diarrhea vomiting. 12 point review of systems otherwise negative. Labs and vitals reviewed. This is reviewed and reconciled. o/e: Vital Signs Height 5 ft 10 in Weight: 212 lb Weight in Pounds 212.0 lbs Pulse Ox 98 Temperature 98.4 F Pulse Rate [Standing] 95 Pulse Rate [Sitting] 82 Pulse Rate [Lying] 82 Pulse Rate 96 Respiratory Rate 18 Blood Pressure [Standing] 122/76 Blood Pressure [Sitting] 148/85 Blood Pressure [Lying] 128/68 Blood Pressure [BP] 121/70 Blood Pressure 112/81 Blood Pressure Position [BP] Supine Blood Pressure Position Semi-Fowlers General: Alert, Oriented x3, Cooperative, No apparent distress HEENT: Atraumatic, PERRLA, EOMI, Normocephalic Neck: Supple, No JVD, Negative Carotid Bruits Lungs: Clear to auscultation, Normal air movement Cardiovascular: Regular rate, Regular Rhythm, Normal S1, Normal S2, No murmurs Abdomen: Bowel Sounds Present, Soft, Non Tender, Non-Distended, Obese Extremities: No clubbing, No cyanosis, Capillary Refill Less than 3 Seconds, Edema - Minimal nonpitting lower extremity edema Skin: No rashes, No breakdown Musculoskeletal: No Tenderness to Palpation of Joints or Extremities Neurological: Cranial nerves II-XII grossly intact, Neuro grossly intact Psych/Mental Status: Normal Affect, Appropriate Plan as stated above. He was also given a script for PO oxycodone 5mg q4prn for 3 days (18 tablets in total). OARRS checked by Karina HOYOS; no red flags seen. Meaningful Use Info Meaningful Use Diagnoses (Choose all that apply): VTE - VTE Anticoag overlap given w/in hospital stay or rx'd at dc?: Yes Pt receive overlap for 5 days?: Yes Code Visit Inpatient E&M: 32798 Disch Hosp
[2018-05-07] MEDS: Aspirin E.C. 81 MG Tablet PO (10:24)
[2018-05-07] MEDS: Pantoprazole Sodium 20 MG Tablet PO (10:24)
== END 2018-05-07 11:50 | disposition home or self-care (01) | DRG 299 ==
LOC: ED 12:07 → PCU 13:50
PROVIDERS: Nurse Practitioner Family; Admitting Provider Family Medicine; Emergency Provider Emergency Medicine; Family Provider Family Medicine; PCP Family Medicine; Visit Provider Student in an Organized Health Care Education/Training Program
DX: I82.413 Acute embolism and thrombosis of femoral vein, bilateral (principal); I26.99 Other pulmonary embolism without acute cor pulmonale; I10 Essential (primary) hypertension; I82.432 Acute embolism and thrombosis of left popliteal vein; I82.442 Acute embolism and thrombosis of left tibial vein; I82.4Z2 Acute embolism and thrombosis of unspecified deep veins of left distal lower extremity; E78.5 Hyperlipidemia, unspecified; I25.10 Atherosclerotic heart disease of native coronary artery without angina pectoris; J44.9 Chronic obstructive pulmonary disease, unspecified; N40.0 Benign prostatic hyperplasia without lower urinary tract symptoms; G47.33 Obstructive sleep apnea (adult) (pediatric); K21.9 Gastro-esophageal reflux disease without esophagitis; Z87.891 Personal history of nicotine dependence; Z86.711 Personal history of pulmonary embolism; Z86.718 Personal history of other venous thrombosis and embolism; Z95.828 Presence of other vascular implants and grafts; G89.29 Other chronic pain; M54.9 Dorsalgia, unspecified; S39.012A Strain of muscle, fascia and tendon of lower back, initial encounter; I95.9 Hypotension, unspecified; R42 Dizziness and giddiness
CPT/HCPCS: 36415; 71045; 71275; 72148; 74018; 80048; 80053; 81001; 83735; 84153; 84443; 84484; 85025; 85027; 87086; 93005; 93306; 93970; 99285; 99406; J7030; J7040; Q9957; Q9967; A4216

== ENCOUNTER → 2018-06-19 14:01 | Outpatient (CLI) | payer MEDICARE, OTHER, SELFPAY ==
[2018-06-19 14:36] LABS: International Normalized Ratio 1.4; Prothrombin Time (Protime)PT. 17.2 SECONDS (11.7-14.9)
== END ==
PROVIDERS: Family Provider Family Medicine; PCP Family Medicine; Referring Provider Family Medicine; Visit Provider Family Medicine
DX: I82.220 Acute embolism and thrombosis of inferior vena cava (principal)
CPT/HCPCS: 85610

== ENCOUNTER → 2018-06-26 13:00 | Outpatient (CLI) | payer MEDICARE, OTHER, SELFPAY ==
[2018-06-26 13:51] LABS: International Normalized Ratio 3.1; Prothrombin Time (Protime)PT. 32.3 SECONDS (11.7-14.9)
== END ==
PROVIDERS: Family Provider Family Medicine; PCP Family Medicine; Referring Provider Family Medicine; Visit Provider Family Medicine
DX: I82.4Y3 Acute embolism and thrombosis of unspecified deep veins of proximal lower extremity, bilateral (principal)
CPT/HCPCS: 85610

== ENCOUNTER → 2018-06-27 13:14 | Outpatient (CLI) | payer MEDICARE, OTHER, SELFPAY ==
[2018-06-27 13:34] LABS: International Normalized Ratio 3.4; Prothrombin Time (Protime)PT. 34.7 SECONDS (11.7-14.9)
== END ==
PROVIDERS: Family Provider Family Medicine; PCP Family Medicine; Referring Provider Family Medicine; Visit Provider Family Medicine
DX: I82.220 Acute embolism and thrombosis of inferior vena cava (principal); Z79.01 Long term (current) use of anticoagulants
CPT/HCPCS: 85610

== ENCOUNTER → 2018-06-29 12:36 | Outpatient (CLI) | payer MEDICARE, OTHER, SELFPAY ==
[2018-06-29 13:00] LABS: International Normalized Ratio 3.3; Prothrombin Time (Protime)PT. 34.1 SECONDS (11.7-14.9)
== END ==
PROVIDERS: Family Provider Family Medicine; PCP Family Medicine; Referring Provider Family Medicine; Visit Provider Family Medicine
DX: I82.220 Acute embolism and thrombosis of inferior vena cava (principal); Z79.01 Long term (current) use of anticoagulants
CPT/HCPCS: 85610

== ENCOUNTER → 2018-06-30 11:30 | Outpatient (CLI) | payer MEDICARE, OTHER, SELFPAY ==
[2018-06-30 12:38] LABS: International Normalized Ratio 3.1; Prothrombin Time (Protime)PT. 32.5 SECONDS (11.7-14.9)
== END ==
PROVIDERS: Family Provider Family Medicine; PCP Family Medicine; Referring Provider Family Medicine; Visit Provider Family Medicine
DX: I82.220 Acute embolism and thrombosis of inferior vena cava (principal); Z79.01 Long term (current) use of anticoagulants
CPT/HCPCS: 85610

== ENCOUNTER → 2018-07-03 09:04 | Outpatient (CLI) | payer MEDICARE, OTHER, SELFPAY ==
[2018-07-03 10:21] LABS: International Normalized Ratio 2.7; Prothrombin Time (Protime)PT. 28.4 SECONDS (11.7-14.9)
== END ==
PROVIDERS: Family Provider Family Medicine; PCP Family Medicine; Referring Provider Family Medicine; Visit Provider Family Medicine
DX: I82.220 Acute embolism and thrombosis of inferior vena cava (principal); Z79.01 Long term (current) use of anticoagulants
CPT/HCPCS: 85610

== ENCOUNTER → 2018-07-06 12:56 | Outpatient (CLI) | payer MEDICARE, OTHER, SELFPAY ==
[2018-07-06 13:30] LABS: International Normalized Ratio 2.5; Prothrombin Time (Protime)PT. 26.8 SECONDS (11.7-14.9)
== END ==
PROVIDERS: Family Provider Family Medicine; PCP Family Medicine; Referring Provider Family Medicine; Visit Provider Family Medicine
DX: I82.220 Acute embolism and thrombosis of inferior vena cava (principal); Z79.01 Long term (current) use of anticoagulants
CPT/HCPCS: 85610

== ENCOUNTER → 2018-07-20 12:22 | Outpatient (CLI) | payer MEDICARE, OTHER, SELFPAY ==
[2018-07-20 12:39] LABS: International Normalized Ratio 1.7; Prothrombin Time (Protime)PT. 20.2 SECONDS (11.7-14.9)
== END ==
PROVIDERS: Referring Provider Family Medicine; Visit Provider Family Medicine
DX: I82.220 Acute embolism and thrombosis of inferior vena cava (principal); Z79.01 Long term (current) use of anticoagulants
CPT/HCPCS: 85610

== ENCOUNTER → 2018-08-03 10:30 | Outpatient (CLI) | payer MEDICARE, OTHER, SELFPAY ==
[2018-08-03 10:53] LABS: International Normalized Ratio 1.9; Prothrombin Time (Protime)PT. 21.9 SECONDS (11.7-14.9)
--- OUTSIDE RECORDS SUMMARY | 2018-09-28 12:40 | XMS RPT_ITS ---
:1950 Author Organization OHIP Support Name Relationship Address Phone ASHLEY HOLMAN Unavailable [address] + [place] [address] R Unavailable Unavailable Unavailable TOPOVSKI, CATHERINE Unavailable [address] + [place] [address] ASHLEY HOLMAN Unavailable [address] + [place] [address] R Unavailable Unavailable Unavailable TOPOVSKI, CATHERINE Unavailable [address] + [place] [address] ASHLEY HOLMAN Unavailable [address] + [place] [address] R Unavailable Unavailable Unavailable TOPOVSKI, CAHTERINE Unavailable [address] + [place] [address] ASHLEY HOLMAN Unavailable [address] + [place] [address] R Unavailable Unavailable Unavailable TOPOVSKI, CATHERINE Unavailable [address] + [place] [address] ASHLEY HOLMAN Unavailable [address] + [place] [address] R Unavailable Unavailable Unavailable TOPOVSKI, CATHERINE Unavailable [address] + [place] [address] ASHLEY HOLMAN Unavailable [address] + [place] [address] R Unavailable Unavailable Unavailable TOPOVSKI, CATHERINE Unavailable [address] + [place] [address] ASHLEY HOLMAN Unavailable [address] + [place] [address] R Unavailable Unavailable Unavailable TOPOVSKI, CATHERINE Unavailable [address] + [place] [address] RIVERIRAM KEARNEYA Unavailable [address] + [place] [address] R Unavailable Unavailable Unavailable TOPOVSKI, CATHERINE Unavailable [address] + [place] [address] RIVERIRAM KEARNEYA Unavailable [address] + [place] [address] R Unavailable Unavailable Unavailable TOPOVSKI, CATHERINE Unavailable [address] + [place] [address] RIVERIRAM KEARNEYA Unavailable [address] + [place] [address] R Unavailable Unavailable Unavailable TOPOVSCARITO, CATHERINE Unavailable [address] + [place] [address] RIVERIRAM KEARNEYA Unavailable [address] + [place] [address] R Unavailable Unavailable Unavailable TOPOVSCARITO, CATHERINE Unavailable [address] + [place] [address] RIVERIRAM KEARNEYA Unavailable [address] + [place] [address] R Unavailable Unavailable Unavailable TOPOVSCARITO, CATHERINE Unavailable [address] + [place] [address] RIVERIRAM KEARNEYA Unavailable [address] + [place] [address] R Unavailable Unavailable Unavailable TOPOVSCARITO, CATHERINE Unavailable [address] + [place] [address] RIVERIRAM KEARNEYA Unavailable [address] + [place] [address] R Unavailable Unavailable Unavailable TOPOVSKI, CATHERINE Unavailable [address] + [place] [address] RIVERIRAM KEARNEYA Unavailable [address] + [place] [address] R Unavailable Unavailable Unavailable TOPOVSKI, CATHERINE Unavailable [address] + [place] [address] ASHLEY HOLMAN Unavailable Unavailable + Care Team Providers Name Role Phone HERMINIO LINARES Attending Unavailable HERMINIO LINARES Referring Unavailable VIJAYHERMINIO MATTHEWS Referring Unavailable SHELLY HOLLAND (CHAIR CANER) Attending Unavailable HERMINIO LINARES Attending Unavailable KEVIN ROBERTS Attending Unavailable VIJAYHERMINIO MATTHEWS A Referring Unavailable ZARIA CULP (PA) Attending Unavailable ZARIA CULP (PA) Referring Unavailable CULP ZARIA (PA) Referring Unavailable CULP, ZARIA (PA) Referring Unavailable CULP, ZARIA (PA) Referring Unavailable CULP, ZARIA (PA) Referring Unavailable CULP, ZARIA (PA) Referring Unavailable JAYMIE MONAE (CORNELL) Attending Unavailable WANDA ZAVALETA Referring Unavailable HERMINIO LINARES A Referring Unavailable BRADLEY MORELAND () Referring Unavailable HERMINIO LINARES A Referring Unavailable ZARIA CULP (PA) Attending Unavailable HERMINIO LINARES A Referring Unavailable VIJAYHERMINIO MATTHEWS A Referring Unavailable VIJAYHERMINIO MATTHEWS A Referring Unavailable VIJAYHERMINIO MATTHEWS A Referring Unavailable KUSUM VALENTINE Attending Unavailable HERMINIO LINARES Referring Unavailable KUSUM VALENTINE Referring Unavailable HERMINIO LINARES Attending Unavailable HERMINIO LINARES Referring Unavailable VINICIO ROONEY Attending Unavailable HERMINIO LINARES Referring Unavailable EWELINA RICHARDS Referring Unavailable HERMINIO LINARES Referring Unavailable Herminio Linares Primary Care Unavailable Mick Heltonolas F Admitting Unavailable Koram, Nancy Monika Attending Unavailable Eder Steen D.O. Consulting Unavailable MarilousMickGabriel F Admitting Unavailable Vijay, Herminio Primary Care Unavailable Kotsleilas Gabriel F Consulting Unavailable [place] Gabriel F Attending Unavailable Koram, Nancy Monika Attending Unavailable Marilous Gabriel F Admitting Unavailable Vijay, Herminio Primary Care Unavailable Eder Steen D.O. Consulting Unavailable Koram, Nancy Monika Consulting Unavailable Kotsleilas, Gabriel F Admitting Unavailable Vijay, Herminio Primary Care Unavailable Koram, Nancy Monika Consulting Unavailable Koram, Nancy Monika Attending Unavailable Murphy Pritchard Attending Unavailable Vijay, Herminio Attending Unavailable Vijay, Herminio Referring Unavailable Vijay, Herminio Attending Unavailable Vijay, Herminio Referring Unavailable Vijay, Herminio Primary Care Unavailable Vijay, Herminio Attending Unavailable Vijay, Herminio Referring Unavailable Vijay, Herminio Primary Care Unavailable Vijay, Herminio Attending Unavailable Vijay, Herminio Referring Unavailable Vijay, Herminio Primary Care Unavailable Vijay, Herminio Attending Unavailable Vijay, Herminio Referring Unavailable Vijay, Herminio Primary Care Unavailable Vijay, Herminio Attending Unavailable Vijay, Herminio Referring Unavailable Vijay, Herminio Primary Care Unavailable Vijay, Herminio Attending Unavailable Vijay, Herminio Referring Unavailable Vijay, Herminio Primary Care Unavailable Vijay, Herminio Attending Unavailable Vijay, Herminio Referring Unavailable Vijay, Herminio Primary Care Unavailable Vijay, Herminio Attending Unavailable Vijay, Herminio Referring Unavailable Vijay, Herminio Attending Unavailable Vijay, Herminio Referring Unavailable VIJAY, HERMINIO A Referring Unavailable VIJAY, HERMINIO A Referring Unavailable RADHA ROMERO (RES) Admitting Unavailable KUSUM VALENTINE Consulting Unavailable WANDA ZAVALETA Attending Unavailable REUBEN GABRIEL (FEL) Admitting Unavailable ARSENIO KEITH Attending Unavailable OKSANA LA Consulting Unavailable EWELINA RICHARDS Attending Unavailable VIJAY, HERMINIO A Referring Unavailable Lizzy Ceja Primary Care Unavailable PROBLEMS PROBLEMS DATE TYPE CONDITION / CODE ATTENDING STATUS SOURCE Unknown I82.220 - Acute Vijay, Active [place] [facility] embolism and [facility] thrombosis of inferior Hospital vena cava / Repository I82.220(ICD-10) Unknown Z79.01 - exterminator termite Vijay, Active [place] [facility] (current) use of [facility] anticoagulants / Hospital Z79.01(ICD-10) Repository Active Dyspnea, unspecified / NA Active [facility] R06.00(ICD-10) Clinic Main [place] Repository Active Thoracic aortic JOSEEWELINA Active [facility] 8 ectasia / A Clinic Other I77.810(ICD-10) [place] Repository Active Mixed hyperlipidemia / JOSEEWELINA [facility] E78.2(ICD-10) A Clinic Other [place] Repository Active Chronic obstructive JOSEEWELINA [facility] 8 pulmonary disease, A Clinic Other unspecified / [place] J44.9(ICD-10) Repository Active Essential (primary) JOSENATHALIA OrnelasEWELINA [facility] 8 hypertension / A Clinic Other I10(ICD-10) [place] Repository [facility] Other I49.3(ICD-10) [place] Repository Active Obstructive sleep JOSE [facility] 8 apnea (adult) A Clinic Other (pediatric) / [place] G47.33(ICD-10) Repository Active Other pulmonary JOSE [facility] 8 embolism without acute A Clinic Other cor pulmonale / [place] I26.99(ICD-10) Repository Active Anemia, unspecified / NA Active [facility] 8 D64.9(ICD-10) Clinic Main [place] Repository Active Disorder of kidney and NA Active [facility] 8 ureter, unspecified / Clinic Main N28.9(ICD-10) [place] Repository Active Personal history of NA Active [facility] 8 other venous Clinic Main thrombosis and [place] embolism / Repository Z86.718(ICD-10) Active Acute embolism and NA Active [facility] 8 thrombosis of inferior Clinic Main vena cava / [place] I82.220(ICD-10) Repository Active Acute embolism and NA Active [facility] 8 thrombosis of Clinic Main unspecified deep veins [place] of proximal lower Repository extremity, bilateral / I82.4Y3(ICD-10) Unknown I82.4Y3 - Acute Vijay, Active [place] 8 embolism and [facility] thrombosis of [facility] unspecified deep veins Repository of proximal lower extremity, bilateral / I82.4Y3(ICD-10) Active [facility] (current) NA Active [facility] 8 use of anticoagulants Clinic Main / Z79.01(ICD-10) [place] Repository Active Encounter for KAILASAM, Active [facility] [address] [facility] Other monitoring / [place] Z51.81(ICD-10) Repository Active Presence of other NA Active [facility] 8 vascular implants and Clinic Main grafts / [place] Z95.828(ICD-10) Repository Active Other ascites / NA Active [facility] R18.8(ICD-10) Clinic Main [place] Repository Active Right lower quadrant NA Active [facility] pain / R10.31(ICD-10) Clinic Main [place] Repository Active Unknown / UNK(Unknown) NA Active [facility] Clinic Main [place] Repository Active Other specified NA Active [facility] abnormal findings of Clinic Main blood chemistry / [place] R79.89(ICD-10) Repository Active Abdominal distension NA Active [facility] (gaseous) / Clinic Main R14.0(ICD-10) [place] Repository Active Pelvic and perineal NA Active [facility] pain / R10.2(ICD-10) Clinic Main [place] Repository Active Other microscopic NA Active [facility] hematuria / Clinic Main R31.29(ICD-10) [place] Repository Unknown S39.012A - Strain of Koram, Nancy Active [facility] 8 muscle, fascia and [facility] tendon of lower back, Hospital initial encounter / Repository S39.012A(ICD-10) Admitting Unknown / UNK(Unknown) NA Active [facility] 8 diagnosis Center [place] Repository Active Abnormal NA Active [facility] electrocardiogram Clinic Other (ECG) (EKG) / [place] R94.31(ICD-10) Repository Active Cardiac murmur, NA Active [facility] unspecified / Clinic Main R01.1(ICD-10) [place] Repository Active Atherosclerotic heart NA Active [facility] [address] [facility] Main coronary artery [place] without angina Repository pectoris / I25.10(ICD-10) Active Coronary NA Active [facility] [address] [facility] Main lipid rich plaque / [place] I25.83(ICD-10) Repository Active Other forms of dyspnea NA Active [facility] / R06.09(ICD-10) Clinic Main [place] Repository Active Other general symptoms NA Active [facility] and signs / Clinic Main R68.89(ICD-10) [place] Repository PROCEDURES PROCEDURES No Procedure Records FoundRESULTS RESULTS PROTIME Collected: 08/17/2018 Status: F Source: [place] 10:37 AM [facility] REPOSITORY TYPE CODE TESTS RESULT OUT OF REFERENCE UNITS RANGE LAB PSEC 9.7-13.0 sec Test PT sent to [facility]. Result Comment: Account Credited HIDE LAB INR 0.9-1.3 Test sent to PT INR [facility]. Result Comment: Account Credited HIDE PROTHROMBIN TIME W/INR Collected: 08/17/2018 Status: F Source: [place] 10:36 AM [facility] REPOSITORY TYPE CODE TESTS RESULT OUT OF RANGE REFERENCE UNITS LAB L300.4150 11.7-14.9 SECONDS High PROTIME 21.5 LAB L300.4200 Normal INR 1.9 Performed By: #### L300.3900 #### [facility] [address] [place], [address] NT PRO BNP Collected: 08/11/2018 Status: F Source: [place] 2:34 PM [facility] REPOSITORY TYPE CODE TESTS RESULT OUT OF REFERENCE UNITS RANGE LAB PBNP <125 pg/mL High PRO B Natr 357 Peptide Performed By: #### NTBNP #### [facility] [address] [place], [place] [address] PROGRESS Observed: 08/10/2018 Status: COMPLETED Source: [place] 10:06 AM [facility] REPOSITORY HNO ID: [id number] Author: Ewelina Richards Service: (none) Author Type: Physician Type: Progress Notes Filed: 08/10/2018 10:24 AM Note Text: PRIMARY CARE PHYSICIAN: Herminio Linares MD [address] [place] [id number] REFERRING PHYSICIAN: Herminio Linares MD [facility] [address] CHIEF COMPLAINT: Patient presents with: New Patient: Referred by Dr. Linares for coronary artery disease HPI: Mr Holman was kindly referred to me by Dr Linares. From a cardiac standpoint, he has a history of mild coronary artery disease that was diagnosed by a left heart catheterization in 2010. He was told that he had 50% occlusion of the left anterior descending artery. He has not followed up with a product marketer on a regular basis. He does have an extensive history of deep venous thrombosis/pulmonary embolisms. He is status post IVC filter placement. Apparently he has had at least 3-4 instances of DVT with PE. He has been on Coumadin. He has also tried Xarelto in the past without much benefit. Around 1998, he suffered a pneumonia following which he was found to have a suspicious lung nodule. He had to undergo left upper lobe wedge resection. In terms of cardiac workup, he underwent a nuclear stress test in 01/20, and this was negative for inducible ischemia. His echocardiogram in January 2018 also revealed a normal LV ejection fraction of 64%. He had a mildly dilated ascending aorta measuring 4.3 cm. This was also commented upon on a CTA of his chest in 2015. However, on his most recent CT of the chest abdomen and pelvis with contrast, there was no specific mention of an aortic aneurysm. It was mentioned that there was suboptimal opacification of the ascending aorta though. Today, he denied feeling any chest pain, but did admit to significant exertional dyspnea. He denies palpitations, lightheadedness, dizziness, loss of consciousness. He did have 2 main concerns today. The first concern was about the fact that he is taking hydrochlorothiazide. He wanted to know if the medication recall on antihypertensive medications will affect him. His second concern was about the fact that he has a scrotal cyst that has been growing. He has had an appointment with a urologist and was told that he would write the need surgical excision of the same. He was very concerned that if he stops his Coumadin before the surgery, he could develop clots again. PAST MEDICAL HISTORY Diagnosis Date - Acute deep vein thrombosis (DVT) of proximal vein of both lower extremities ([facility]) 05/12/2018 - Adenomatous colon polyp 10/25/20132008 - Agent orange exposure 02/21/2016 - Bladder neck obstruction 09/19/2008 - BPH (benign prostatic hypertrophy) 09/19/2008 - Chewing tobacco use 01/11/2018 - Chronic obstructive pulmonary disease (COPD) ([facility]) - Coronary artery disease due to lipid rich plaque 01/11/2018 Cath around 2010 was told had one vessel at 30% blocked and maker at 50 %. As to be managed medically. 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 if this was a true Dx. - Mixed hyperlipidemia 09/14/2010 Chol 182 Tri 98 HDL 35 LDL 127 - Mixed simple and mucopurulent chronic bronchitis (HCC) 01/22/2016 - Obesity, Class I, BMI 30-34.9 06/24/2018 - RAYRAY (obstructive sleep apnea) AHI 5.1 per 4% AND OS 10/15/2015 Was not able to tolerate - Other pulmonary embolism and infarction 09/13/2010 -pt had PE and DVT in 2005 after back surgery -an IVC filter was placed then and is still in place Was on coumadin for a time and then quit taking it on his own - Postinflammatory pulmonary fibrosis (HCC) 09/16/2010 - Presence of IVC filter 12/29/2014 - PVC's (premature ventricular contractions) 01/11/2018 - SOLAR LENGINES 06/08/2006 - Thoracic aortic aneurysm without rupture (HCC) 02/22/2018 See who patient sees [facility] [place] next visit (07/14/2018) PAST SURGICAL HISTORY Procedure Laterality Date - 2D ECHO (EXEP) 01/13/2018 EF= 64%, Mild LVH and Tucker Dys, Mild LA enlargement and dialted ascending Aorta - COLONOS W/REM POLYP SNARE 01/06/16 adenomatous polyp - 3 year follow up - COLONOSCOP W/ OR W/O BRSH SPEC 10/23/2008 Colonoscopy, tubular adenoma - KIDNEY SURGERY HX - LEFT HEART CATH,PERCUTANEOUS 09/14/2010 Cardiac cath, L heart - PAST SURGICAL HISTORY OF 1997 partial removal left lung - [facility] - PAST SURGICAL HISTORY OF 3 back surgeries - REMV LENS MATERIAL,PHACOFRAGMT 2009 Cataract Extraction (right and left) - STRESS TEST 01/16/2018 normal SOCIAL HISTORY Social History Substance Use Topics - Smoking status: Former Smoker Packs/day: 0.50 Years: 40.00 Types: Cigarettes Quit date: 12/04/2010 - Smokeless tobacco: Current User Types: Chew Comment: quit smoking and chewing tobacco - Alcohol use No FAMILY HISTORY Problem Relation Age of Onset - Diabetes Father - Stroke Father - Stroke Mother - Alzheimer's Disease Mother - Cancer Brother throat ca ALLERGIES: ALLERGIES Allergen Reactions - Bactrim [Sulfametho* Other: See Comments sore throat - Levaquin [Levofloxa* GI Upset MEDICATIONS: warfarin (COUMADIN) 2 mg tablet Take 1 tablet by mouth daily as directed. warfarin (COUMADIN) 2.5 mg tablet Take 2 tablets by mouth daily as directed. Take daily dose as instructed by physician. atorvastatin (LIPITOR) 10 mg tablet Take 2 tablets by mouth once daily. doxazosin (CARDURA) 8 mg tablet Take 1 tablet by mouth every evening. hydrochlorothiazide (HYDRODIURIL, ESIDRIX) 25 mg tablet Take 1 tablet by mouth once daily. omeprazole (PRILOSEC) 20 mg capsule Take 1 capsule by mouth daily before breakfast. 1/2 hr before meal. REVIEW OF SYSTEMS: GENERAL: Negative for:Weight loss and Weight gain HEENT: Negative for:Nosebleeds RESPIRATORY: + Shortness of breath GASTROINTESTINAL: Negative for:Blood in stool MUSCULOSKELETAL: Negtive for: Muscle or joint pain, stiffness, Joint swelling SKIN: No rash HEMATOLOGICAL/LYMPHATIC: Negative for: Easy bruising and Easy bleeding CARDIOVASCULAR: As stated in HPI. 10 system review negative except as stated in HPI PHYSICAL EXAMINATION: BP 149/91 Pulse 68 Temp (Src) 97.4 (Oral) Resp 16 Ht 5' 9 (1.75m) Wt 212 lb (96.2kg) SpO2 96[room air]% BMI 31.29 kg/(m2). General: Well appearing, in no acute distress, speaking in complete sentences., Well appearing. Psych: Normal Affect Eyes: No subconjunctival hemorrhage Skin: No rash, bruising Oropharynx: Mucous membranes normal Neck: no jugular venous distention, no carotid bruits. Lymph: No cervical lymphadenopathy Lungs: Clear to auscultation bilaterally, no wheezing or rhonchi. Heart: S1, S2 normal, no murmur Extremities: No peripheral edema Neuro: Grossly nonfocal ASSESSMENT/PLAN: 1. Coronary artery disease due to lipid rich plaque - ICD9: 414.00, 414.3, ICD10: I25.10, I25.83 (primary diagnosis) This was nonocclusive based on his evaluation in 2010. He also had a negative nuclear stress test in 01/20. Continue Lipitor. Since he is already taking warfarin, I asked him to not take aspirin. He is currently not on a beta srinivasa. I will start him on some Coreg. He did have some concerns about proceeding with surgery for his scrotal cysts. I did mention to him that he does not have any cardiac contraindications; however, given his prior history of recurrent DVTs he will be at risk for development of another DVT when he goes off Coumadin. 2. PVC's (premature ventricular contractions) - ICD9: 427.69, ICD10: I49.3 Not an active issue at present. Like I described above, he is not on a beta srinivasa at present. I will start him on Coreg. 3. Ectatic thoracic aorta (HCC) - ICD9: 447.71, ICD10: I77.810 I would repeat a CTA chest the next year. His blood pressure control is not optimal. I suggest starting him on Coreg. 4. Other pulmonary embolism without acute cor pulmonale, unspecified chronicity (HCC) - ICD9: 415.19, ICD10: I26.99 SP IVC filter. Continue Coumadin. 5. Presence of IVC filter - ICD9: V45.89, ICD10: Z95.828 Stable. Management per his vascular surgeon 6. Mixed hyperlipidemia - ICD9: 272.2, ICD10: E78.2 Currently on Lipitor. Continue regular lipid panel checks with his primary physician 7. Essential hypertension - ICD9: 401.9, ICD10: I10 - suboptimal control. Start Coreg. - Recommended regular aerobic exercise. - Recommend home blood pressure monitoring, to bring results in on next visit - Goal of BP <130/80 8. Chronic obstructive pulmonary disease, unspecified COPD type (HCC) - ICD9: 496, ICD10: J44.9 Inhalers and management per his primary care physician 9. RAYRAY (obstructive sleep apnea) AHI 5.1 per 4% AND OS - ICD9: 327.23, ICD10: G47.33 He was reluctant to try CPAP. I asked him to work on weight loss, and discuss CPAP therapy with Dr. Linares 10. Dyspnea, unspecified type - ICD9: 786.09, ICD10: R06.00 This is likely secondary to chronic pulmonary thromboembolism. I will anyways check BNP levels on him. If the levels are elevated, he may benefit from the use of some Lasix. I did ask me to him that most of his lower extremity edema is likely secondary to venous insufficiency/recurrent deep venous thromboses. - NT PRO BNP Ewelina Richards MD The above note was partially created using a dictation recognition software. A reasonable attempt has been made to correct any errors. CNOV Observed: 08/10/2018 Status: COMPLETED Source: [place] 9:30 AM [facility] REPOSITORY Office Visit (AGCARDLOD) JOVANI HOLMAN ([id number]) 1950 M Date Time Provider Department 08/10/18 9:30 AM EWELINA RICHARDS During your visit today, we recorded the following information about you: Temperature Pulse Respiration Blood pressure 97.4 degrees 68/minute 16/minute 149/91 Weight Height 96.2 kg 1.753 m Ewelina Richards MD 08/10/2018 10:24 AM Signed PRIMARY CARE PHYSICIAN: Herminio Linares MD [address] [phone] REFERRING PHYSICIAN: Herminio Linares MD [address] [facility] [address] CHIEF COMPLAINT: Patient presents with: New Patient: Referred by Dr. Linares for coronary artery disease HPI: Mr Holman was kindly referred to me by Dr Linares. From a cardiac standpoint, he has a history of mild coronary artery disease that was diagnosed by a left heart catheterization in 2010. He was told that he had 50% occlusion of the left anterior descending artery. He has not followed up with a product marketer on a regular basis. He does have an extensive history of deep venous thrombosis/pulmonary embolisms. He is status post IVC filter placement. Apparently he has had at least 3-4 instances of DVT with PE. He has been on Coumadin. He has also tried Xarelto in the past without much benefit. Around 1998, he suffered a pneumonia following which he was found to have a suspicious lung nodule. He had to undergo left upper lobe wedge resection. In terms of cardiac workup, he underwent a nuclear stress test in 01/20, and this was negative for inducible ischemia. His echocardiogram in January 2018 also revealed a normal LV ejection fraction of 64%. He had a mildly dilated ascending aorta measuring 4.3 cm. This was also commented upon on a CTA of his chest in 2015. However, on his most recent CT of the chest abdomen and pelvis with contrast, there was no specific mention of an aortic aneurysm. It was mentioned that there was suboptimal opacification of the ascending aorta though. Today, he denied feeling any chest pain, but did admit to significant exertional dyspnea. He denies palpitations, lightheadedness, dizziness, loss of consciousness. He did have 2 main concerns today. The first concern was about the fact that he is taking hydrochlorothiazide. He wanted to know if the medication recall on antihypertensive medications will affect him. His second concern was about the fact that he has a scrotal cyst that has been growing. He has had an appointment with a urologist and was told that he would write the need surgical excision of the same. He was very concerned that if he stops his Coumadin before the surgery, he could develop clots again. PAST MEDICAL HISTORY Diagnosis Date - Acute deep vein thrombosis (DVT) of proximal vein of both lower extremities (HCC) 05/12/2018 - Adenomatous colon polyp 10/25/20132008 - Agent orange exposure 02/21/2016 - Bladder neck obstruction 09/19/2008 - BPH (benign prostatic hypertrophy) 09/19/2008 - Chewing tobacco use 01/11/2018 - Chronic obstructive pulmonary disease (COPD) ([facility]) - Coronary artery disease due to lipid rich plaque 01/11/2018 Cath around 2010 was told had one vessel at 30% blocked and maker at 50 %. As to be managed medically. 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 if this was a true Dx. - Mixed hyperlipidemia 09/14/2010 Chol 182 Tri 98 HDL 35 LDL 127 - Mixed simple and mucopurulent chronic bronchitis (HCC) 01/22/2016 - Obesity, Class I, BMI 30-34.9 06/24/2018 - RAYRAY (obstructive sleep apnea) AHI 5.1 per 4% AND OS 10/15/2015 Was not able to tolerate - Other pulmonary embolism and infarction 09/13/2010 -pt had PE and DVT in 2005 after back surgery -an IVC filter was placed then and is still in place Was on coumadin for a time and then quit taking it on his own - Postinflammatory pulmonary fibrosis (HCC) 09/16/2010 - Presence of IVC filter 12/29/2014 - PVC's (premature ventricular contractions) 01/11/2018 - SOLAR LENGINES 06/08/2006 - Thoracic aortic aneurysm without rupture (HCC) 02/22/2018 See who patient sees [facility] [place] next visit (07/14/2018) PAST SURGICAL HISTORY Procedure Laterality Date - 2D ECHO (EXEP) 01/13/2018 EF= 64%, Mild LVH and Tucker Dys, Mild LA enlargement and dialted ascending Aorta - COLONOS W/REM POLYP SNARE 01/06/16 adenomatous polyp - 3 year follow up - COLONOSCOP W/ OR W/O BRSH SPEC 10/23/2008 Colonoscopy, tubular adenoma - KIDNEY SURGERY HX - LEFT HEART CATH,PERCUTANEOUS 09/14/2010 Cardiac cath, L heart - PAST SURGICAL HISTORY OF 1997 partial removal left lung - [facility] - PAST SURGICAL HISTORY OF 3 back surgeries - REMV LENS MATERIAL,PHACOFRAGMT 2009 Cataract Extraction (right and left) - STRESS TEST 01/16/2018 normal SOCIAL HISTORY Social History Substance Use Topics - Smoking status: Former Smoker Packs/day: 0.50 Years: 40.00 Types: Cigarettes Quit date: 12/04/2010 - Smokeless tobacco: Current User Types: Chew Comment: quit smoking and chewing tobacco - Alcohol use No FAMILY HISTORY Problem Relation Age of Onset - Diabetes Father - Stroke Father - Stroke Mother - Alzheimer's Disease Mother - Cancer Brother throat ca ALLERGIES: ALLERGIES Allergen Reactions - Bactrim [Sulfametho* Other: See Comments sore throat - Levaquin [Levofloxa* GI Upset MEDICATIONS: warfarin (COUMADIN) 2 mg tablet Take 1 tablet by mouth daily as directed. warfarin (COUMADIN) 2.5 mg tablet Take 2 tablets by mouth daily as directed. Take daily dose as instructed by physician. atorvastatin (LIPITOR) 10 mg tablet Take 2 tablets by mouth once daily. doxazosin (CARDURA) 8 mg tablet Take 1 tablet by mouth every evening. hydrochlorothiazide (HYDRODIURIL, ESIDRIX) 25 mg tablet Take 1 tablet by mouth once daily. omeprazole (PRILOSEC) 20 mg capsule Take 1 capsule by mouth daily before breakfast. 1/2 hr before meal. REVIEW OF SYSTEMS: GENERAL: Negative for:Weight loss and Weight gain HEENT: Negative for:Nosebleeds RESPIRATORY: + Shortness of breath GASTROINTESTINAL: Negative for:Blood in stool MUSCULOSKELETAL: Negtive for: Muscle or joint pain, stiffness, Joint swelling SKIN: No rash HEMATOLOGICAL/LYMPHATIC: Negative for: Easy bruising and Easy bleeding CARDIOVASCULAR: As stated in HPI. 10 system review negative except as stated in HPI PHYSICAL EXAMINATION: BP 149/91 Pulse 68 Temp (Src) 97.4 (Oral) Resp 16 Ht 5' 9 (1.75m) Wt 212 lb (96.2kg) SpO2 96[room air]% BMI 31.29 kg/(m2). General: Well appearing, in no acute distress, speaking in complete sentences., Well appearing. Psych: Normal Affect Eyes: No subconjunctival hemorrhage Skin: No rash, bruising Oropharynx: Mucous membranes normal Neck: no jugular venous distention, no carotid bruits. Lymph: No cervical lymphadenopathy Lungs: Clear to auscultation bilaterally, no wheezing or rhonchi. Heart: S1, S2 normal, no murmur Extremities: No peripheral edema Neuro: Grossly nonfocal ASSESSMENT/PLAN: 1. Coronary artery disease due to lipid rich plaque - ICD9: 414.00, 414.3, ICD10: I25.10, I25.83 (primary diagnosis) This was nonocclusive based on his evaluation in 2010. He also had a negative nuclear stress test in 01/20. Continue Lipitor. Since he is already taking warfarin, I asked him to not take aspirin. He is currently not on a beta srinivasa. I will start him on some Coreg. He did have some concerns about proceeding with surgery for his scrotal cysts. I did mention to him that he does not have any cardiac contraindications; however, given his prior history of recurrent DVTs he will be at risk for development of another DVT when he goes off Coumadin. 2. PVC's (premature ventricular contractions) - ICD9: 427.69, ICD10: I49.3 Not an active issue at present. Like I described above, he is not on a beta srinivasa at present. I will start him on Coreg. 3. Ectatic thoracic aorta (HCC) - ICD9: 447.71, ICD10: I77.810 I would repeat a CTA chest the next year. His blood pressure control is not optimal. I suggest starting him on Coreg. 4. Other pulmonary embolism without acute cor pulmonale, unspecified chronicity (HCC) - ICD9: 415.19, ICD10: I26.99 SP IVC filter. Continue Coumadin. 5. Presence of IVC filter - ICD9: V45.89, ICD10: Z95.828 Stable. Management per his vascular surgeon 6. Mixed hyperlipidemia - ICD9: 272.2, ICD10: E78.2 Currently on Lipitor. Continue regular lipid panel checks with his primary physician 7. Essential hypertension - ICD9: 401.9, ICD10: I10 - suboptimal control. Start Coreg. - Recommended regular aerobic exercise. - Recommend home blood pressure monitoring, to bring results in on next visit - Goal of BP <130/80 8. Chronic obstructive pulmonary disease, unspecified COPD type (HCC) - ICD9: 496, ICD10: J44.9 Inhalers and management per his primary care physician 9. RAYRAY (obstructive sleep apnea) AHI 5.1 per 4% AND OS - ICD9: 327.23, ICD10: G47.33 He was reluctant to try CPAP. I asked him to work on weight loss, and discuss CPAP therapy with Dr. Linares 10. Dyspnea, unspecified type - ICD9: 786.09, ICD10: R06.00 This is likely secondary to chronic pulmonary thromboembolism. I will anyways check BNP levels on him. If the levels are elevated, he may benefit from the use of some Lasix. I did ask me to him that most of his lower extremity edema is likely secondary to venous insufficiency/recurrent deep venous thromboses. - NT PRO BNP Ewelina Richards MD The above note was partially created using a dictation recognition software. A reasonable attempt has been made to correct any errors. Ewelina Richards MD 08/10/2018 10:14 AM Signed Coronary Artery Disease View image View image What is coronary artery disease? Coronary artery disease (CAD) is a type of heart disease caused by a problem with the blood vessels that bring blood and oxygen to the heart muscle. These arteries are called the coronary arteries. This disease increases your risk for heart attack and sudden . What is the cause? Fatty deposits called plaque may build up in blood vessels and make them narrower. The narrowing decreases the amount of blood flow to the heart. Plaque also increases the chance that blood clots may form and block a blood vessel, which can cause a heart attack or stroke. Your risk for CAD may be higher if you: ? Have a family history of coronary artery disease at an early age ? Smoke ? Have high blood pressure ? Have diabetes ? Are very overweight ? Don?t get enough exercise ? Have high levels of blood fat--for example, high cholesterol What are the symptoms? Coronary artery disease may not cause any symptoms. When there are symptoms, the most common one is chest pain, called angina. You may feel: ? A feeling of tightness or heaviness in the chest ? Squeezing, pressure, or burning in the chest Angina symptoms usually: ? Last for 5 minutes or less and go away with rest or medicine such as nitroglycerin. ? Happen when the heart has to work harder, such as after a heavy meal or during physical activity or emotional stress. Angina may also happen when you are resting. Call 911 for emergency help right away if you have symptoms of a heart attack. The most common symptoms include: ? Chest pain or pressure, squeezing, or fullness in the center of your chest that lasts more than a few minutes, or goes away and comes back (may feel like indigestion or heartburn) ? Pain or discomfort in one or both arms or shoulders, or in your back, neck, jaw, or stomach ? Trouble breathing ? Breaking out in a cold sweat for no known reason ? If your provider has prescribed nitroglycerin for angina, pain that does not go away after taking your nitroglycerin as directed Along with these symptoms, you may also feel very tired, faint, or be sick to your stomach. How is it diagnosed? Your healthcare provider will ask about your symptoms and medical history and examine you. Tests may include: ? Blood tests ? An ECG (also called an EKG or electrocardiogram), which measures and records your heartbeat. ? An exercise treadmill test to see how your heart works when you exercise ? An echocardiogram, which uses sound waves (ultrasound) to see how well your heart is pumping ? Angiogram, which is a series of X-rays taken after your healthcare provider injects a special dye into your blood vessels to show the bauman of the arteries and any blockage ? CT scan, which uses X-rays and a computer to show detailed pictures of the arteries How is it treated? Your treatment depends on many factors, such as your age, heart muscle function, and other health problems. At first, treatment may include diet changes and an exercise program. Your healthcare provider may prescribe medicine. ? Many people need to take 2 or more medicines to help prevent a heart attack or stroke. It may take several weeks or months to find the best treatment for you. ? Your provider may also prescribe other types of medicine to lower blood pressure, help stop chest pain, control an irregular heartbeat, help prevent blood clots, or lower blood fat (cholesterol). Your provider may recommend a daily low dose of aspirin. Taking an aspirin every day may lower your risk for a heart attack or stroke. Not everyone should take aspirin. Daily use of aspirin can cause problems, such as stomach irritation, bleeding, and hearing loss. Ask your healthcare provider if you should take aspirin and if so, how much to take. If your coronary arteries are badly blocked, you may need balloon angioplasty or bypass surgery. ? A balloon angioplasty opens blocked blood vessels and improves blood flow. A metal mesh device called a stent is usually left in the blood vessels to help keep them open. ? Bypass surgery uses blood vessels from other parts of the body, or manmade material, to make a new path around a blocked area. How can I take care of myself? If you have coronary artery disease, there are things you can do to take care of yourself now and prevent problems in the future. ? Follow your provider's advice about activity, exercise, medicine, and follow-up visits. ? Lower the amount of salt, saturated and trans fats, and cholesterol in your diet. ? Work with your healthcare provider to control diabetes, blood pressure, or other health problems you may have. ? Try to keep a healthy weight. If you are overweight, talk to your provider about ways to lose weight. ? If you smoke, try to quit. Talk to your healthcare provider about ways to quit smoking. ? Ask your healthcare provider: o How and when you will hear your test results o How long it will take to recover o What activities you should avoid and when you can return to your normal activities o How to take care of yourself at home o What symptoms or problems you should watch for and what to do if you have them ? Make sure you know when you should come back for a checkup. How can I help prevent coronary artery disease? You can prevent this disease with a heart-healthy lifestyle: ? Eat a healthy diet and keep a healthy weight. ? Stay fit with the right kind of exercise for you. ? Find ways to manage stress. ? Don?t smoke. ? Limit your use of alcohol. Talk to your healthcare provider about your personal and family medical history and your lifestyle habits. This will help you know what you can do to lower your risk for coronary artery disease. If you have a strong family history of CAD, a healthy lifestyle may slow the start of the disease and maybe even keep you from getting it. However, you must have regular checkups to keep a close watch on the health of your heart. Developed by [employer]. Published by [employer]. Copyright ?2014 [employer] and/or one of its subsidiaries. All rights reserved. Referring Provider: HERMINIO LINARSE [[id number]] Allergies As of Date: 08/10/2018 Noted Allergy Reaction BACTRIM (SULFAMETHOXAZOLE-TRIMETH*11/18/2008 14 - Other: See Comments Comments: sore throat LEVAQUIN (LEVOFLOXACIN) 06/10/2005 8 - GI Upset Date Reviewed: 08/10/2018 Reviewed by: Ewelina Richards - Fully Assessed Reason for Visit: New Patient [[id number]] Cmt: Referred by Dr. Linares for coronary artery disease Reason For Visit History Recorded Primary Visit Diagnosis:Coronary artery disease due to lipid rich plaque [I25.10, I25.83] Other Visit Diagnoses:PVC's (premature ventricular contractions) [I49.3] Ectatic thoracic aorta (HCC) [I77.810] Other pulmonary embolism without acute cor pulmonale, unspecified chronicity (HCC) [I26.99] Presence of IVC filter [Z95.828] Mixed hyperlipidemia [E78.2] Essential hypertension [I10] Chronic obstructive pulmonary disease, unspecified COPD type (HCC) [J44.9] RAYRAY (obstructive sleep apnea) AHI 5.1 per 4% AND OS [G47.33] Dyspnea, unspecified type [R06.00] Order(s):NT PRO BNP [SQNTBNP] Order #: [id number] FUTURE carvedilol (COREG) 6.25 mg tabletTake 1 tablet by mouth twice daily.Disp: 60 tabletRfl: 1 Prescriptions as of 08/10/2018 Sig: WARFARIN 2 MG TABLET Take 1 tablet by mouth daily * WARFARIN 2.5 MG TABLET Take 2 tablets by mouth daily* ATORVASTATIN 10 MG TABLET Take 2 tablets by mouth once * Patient taking differently: Take 10 mg by mouth daily at * DOXAZOSIN 8 MG TABLET Take 1 tablet by mouth every * HYDROCHLOROTHIAZIDE 25 MG TAB* Take 1 tablet by mouth once d* OMEPRAZOLE 20 MG CAPSULE,JULIET* Take 1 capsule by mouth daily* CARVEDILOL 6.25 MG TABLET Take 1 tablet by mouth twice * Problem List As Of Date 08/10/2018 Noted Resolved Tobacco use disorder [F17.200] 08/05/2016 SOLAR SARAH [L81.9] INVALID FOR* Idiopathic urticaria [L50.1] INVALID FOR* Lumbago [M54.5] INVALID FOR* Benign prostatic hyperplasia [N40.0] INVALID FOR* More... Bladder neck obstruction [N32.0] INVALID FOR* Diverticulosis of colon (without mention of hem*INVALID FOR* More... More... Essential hypertension [I10] INVALID FOR* More... Tobacco abuse [Z72.0] INVALID FOR*08/05/2016 More... Other pulmonary embolism and infarction [I26.99]INVALID FOR* More... Mixed hyperlipidemia [E78.2] INVALID FOR* More... More... Leg edema [R60.0] INVALID FOR* More... Postinflammatory pulmonary fibrosis (HCC) [J84.*INVALID FOR* Adenomatous colon polyp [D12.6] INVALID FOR* More... GERD (gastroesophageal reflux disease) [K21.9] INVALID FOR* Presence of IVC filter [Z95.828] INVALID FOR* RAYRAY (obstructive sleep apnea) AHI 5.1 per 4% AND *INVALID FOR* More... Screening for colon cancer [Z12.11] INVALID FOR* Mixed simple and mucopurulent chronic bronchiti*INVALID FOR* Agent orange exposure [Z77.098] INVALID FOR* Coronary artery disease due to lipid rich plaqu*INVALID FOR* More... Well adult exam [Z00.00] INVALID FOR* More... Chronic obstructive pulmonary disease (COPD) (H* Ex-smoker [Z87.891] INVALID FOR*06/14/2018 More... Ex-user of chewing tobacco [Z87.891] INVALID FOR* More... Medicare annual wellness visit, subsequent [Z00*INVALID FOR* More... PVC's (premature ventricular contractions) [I49*INVALID FOR* Thoracic aortic aneurysm without rupture (HCC) *INVALID FOR* More... Lumbar foraminal stenosis [M99.83] INVALID FOR* More... Herniation of intervertebral disc between L4 an*INVALID FOR* Acute deep vein thrombosis (DVT) of proximal ve*INVALID FOR* More... Inferior vena cava thromboembolism (HCC) [I82.2*INVALID FOR* More... Embolism of inferior vena cava (HCC) [I82.220] INVALID FOR* Chronic anticoagulation [Z79.01] INVALID FOR* Intractable pain [R52] INVALID FOR* More... Epididymo-orchitis [N45.3] INVALID FOR* More... Obesity, Class I, BMI 30-34.9 [E66.9] INVALID FOR* Bilateral leg weakness [R29.898] INVALID FOR* At high risk for falls [Z91.81] INVALID FOR* Prostate disorder [N42.9] INVALID FOR* Renal insufficiency [N28.9] INVALID FOR* Anemia [D64.9] INVALID FOR* Ectatic thoracic aorta (HCC) [I77.810] INVALID FOR* Other instructions from your clinician: Coronary Artery Disease View image View image What is coronary artery disease? Coronary artery disease (CAD) is a type of heart disease caused by a problem with the blood vessels that bring blood and oxygen to the heart muscle. These arteries are called the coronary arteries. This disease increases your risk for heart attack and sudden . What is the cause? Fatty deposits called plaque may build up in blood vessels and make them narrower. The narrowing decreases the amount of blood flow to the heart. Plaque also increases the chance that blood clots may form and block a blood vessel, which can cause a heart attack or stroke. Your risk for CAD may be higher if you: ? Have a family history of coronary artery disease at an early age ? Smoke ? Have high blood pressure ? Have diabetes ? Are very overweight ? Don?t get enough exercise ? Have high levels of blood fat--for example, high cholesterol What are the symptoms? Coronary artery disease may not cause any symptoms. When there are symptoms, the most common one is chest pain, called angina. You may feel: ? A feeling of tightness or heaviness in the chest ? Squeezing, pressure, or burning in the chest Angina symptoms usually: ? Last for 5 minutes or less and go away with rest or medicine such as nitroglycerin. ? Happen when the heart has to work harder, such as after a heavy meal or during physical activity or emotional stress. Angina may also happen when you are resting. Call 911 for emergency help right away if you have symptoms of a heart attack. The most common symptoms include: ? Chest pain or pressure, squeezing, or fullness in the center of your chest that lasts more than a few minutes, or goes away and comes back (may feel like indigestion or heartburn) ? Pain or discomfort in one or both arms or shoulders, or in your back, neck, jaw, or stomach ? Trouble breathing ? Breaking out in a cold sweat for no known reason ? If your provider has prescribed nitroglycerin for angina, pain that does not go away after taking your nitroglycerin as directed Along with these symptoms, you may also feel very tired, faint, or be sick to your stomach. How is it diagnosed? Your healthcare provider will ask about your symptoms and medical history and examine you. Tests may include: ? Blood tests ? An ECG (also called an EKG or electrocardiogram), which measures and records your heartbeat. ? An exercise treadmill test to see how your heart works when you exercise ? An echocardiogram, which uses sound waves (ultrasound) to see how well your heart is pumping ? Angiogram, which is a series of X-rays taken after your healthcare provider injects a special dye into your blood vessels to show the bauman of the arteries and any blockage ? CT scan, which uses X-rays and a computer to show detailed pictures of the arteries How is it treated? Your treatment depends on many factors, such as your age, heart muscle function, and other health problems. At first, treatment may include diet changes and an exercise program. Your healthcare provider may prescribe medicine. ? Many people need to take 2 or more medicines to help prevent a heart attack or stroke. It may take several weeks or months to find the best treatment for you. ? Your provider may also prescribe other types of medicine to lower blood pressure, help stop chest pain, control an irregular heartbeat, help prevent blood clots, or lower blood fat (cholesterol). Your provider may recommend a daily low dose of aspirin. Taking an aspirin every day may lower your risk for a heart attack or stroke. Not everyone should take aspirin. Daily use of aspirin can cause problems, such as stomach irritation, bleeding, and hearing loss. Ask your healthcare provider if you should take aspirin and if so, how much to take. If your coronary arteries are badly blocked, you may need balloon angioplasty or bypass surgery. ? A balloon angioplasty opens blocked blood vessels and improves blood flow. A metal mesh device called a stent is usually left in the blood vessels to help keep them open. ? Bypass surgery uses blood vessels from other parts of the body, or manmade material, to make a new path around a blocked area. How can I take care of myself? If you have coronary artery disease, there are things you can do to take care of yourself now and prevent problems in the future. ? Follow your provider's advice about activity, exercise, medicine, and follow-up visits. ? Lower the amount of salt, saturated and trans fats, and cholesterol in your diet. ? Work with your healthcare provider to control diabetes, blood pressure, or other health problems you may have. ? Try to keep a healthy weight. If you are overweight, talk to your provider about ways to lose weight. ? If you smoke, try to quit. Talk to your healthcare provider about ways to quit smoking. ? Ask your healthcare provider: o How and when you will hear your test results o How long it will take to recover o What activities you should avoid and when you can return to your normal activities o How to take care of yourself at home o What symptoms or problems you should watch for and what to do if you have them ? Make sure you know when you should come back for a checkup. How can I help prevent coronary artery disease? You can prevent this disease with a heart-healthy lifestyle: ? Eat a healthy diet and keep a healthy weight. ? Stay fit with the right kind of exercise for you. ? Find ways to manage stress. ? Don?t smoke. ? Limit your use of alcohol. Talk to your healthcare provider about your personal and family medical history and your lifestyle habits. This will help you know what you can do to lower your risk for coronary artery disease. If you have a strong family history of CAD, a healthy lifestyle may slow the start of the disease and maybe even keep you from getting it. However, you must have regular checkups to keep a close watch on the health of your heart. Developed by [employer]. Published by [employer]. Copyright ?2014 [employer] and/or one of its subsidiaries. All rights reserved. Prescriptions ordered this encounter Disp Refills Start End CARVEDILOL 6.25 MG TABLET 60 t* 1 08/10/2018 Route: ORAL Sig: Take 1 tablet by mouth twice daily. Disposition: Return in about 6 months (around 02/08/2019). Follow-up and Disposition History Recorded Letter Text Encounter Status:Closed by EWELINA RICHARDS on 08/10/18 PROTIME Collected: 08/03/2018 Status: F Source: [place] 10:00 AM [facility] REPOSITORY TYPE CODE TESTS RESULT OUT OF REFERENCE UNITS RANGE LAB PSEC 9.7-13.0 sec Test PT sent to [facility]. Result Comment: Account Credited HIDE LAB INR 0.9-1.3 Test sent to PT INR [facility]. Result Comment: Account Credited HIDE PROTHROMBIN TIME W/INR Collected: 08/03/2018 Status: F Source: [place] 12:00 AM [facility] REPOSITORY TYPE CODE TESTS RESULT OUT OF RANGE REFERENCE UNITS LAB L300.4150 11.7-14.9 SECONDS High PROTIME 21.9 LAB L300.4200 Normal INR 1.9 Performed By: #### L300.3900 #### [facility] [address] [place], [address] CNOV Observed: 07/26/2018 Status: COMPLETED Source: [place] 10:45 AM [facility] REPOSITORY Office Visit (UROLMD) JOVANI HOLMAN ([id number]) 1950 M Date Time Provider Department 07/26/18 10:45 AM VINICIO ROONEY V UROLMD During your visit today, we recorded the following information about you: Weight Height 94.3 kg 1.753 m Chetna Webber Ma 07/26/2018 10:50 AM Signed Patient presents with: New Patient: Scrotal Cyst Referring Provider: ER STAFF [[id number]] Allergies As of Date: 07/26/2018 Noted Allergy Reaction BACTRIM (SULFAMETHOXAZOLE-TRIMETH*11/18/2008 14 - Other: See Comments Comments: sore throat LEVAQUIN (LEVOFLOXACIN) 06/10/2005 8 - GI Upset Date Reviewed: 07/26/2018 Reviewed by: Chetna Webber Ma - Fully Assessed Reason for Visit: New Patient [172] Cmt: Scrotal Cyst Primary Visit Diagnosis:Spermatocele [N43.40] Other Visit Diagnoses: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 #:[id number] Prescriptions as of 07/26/2018 Sig: WARFARIN 2 MG TABLET Take 1 tablet by mouth daily * WARFARIN 2.5 MG TABLET Take 2 tablets by mouth daily* ATORVASTATIN 10 MG TABLET Take 2 tablets by mouth once * Patient taking differently: Take 10 mg by mouth daily at * DOXAZOSIN 8 MG TABLET Take 1 tablet by mouth every * HYDROCHLOROTHIAZIDE 25 MG TAB* Take 1 tablet by mouth once d* OMEPRAZOLE 20 MG CAPSULE,JULIET* Take 1 capsule by mouth daily* Problem List As Of Date 07/26/2018 Noted Resolved Tobacco use disorder [F17.200] 08/05/2016 SOLAR LENGINES [L81.9] INVALID FOR* Priority: D Idiopathic urticaria [L50.1] INVALID FOR* Priority: D Lumbago [M54.5] INVALID FOR* Priority: M Benign prostatic hyperplasia [N40.0] INVALID FOR* Priority: E More... Bladder neck obstruction [N32.0] INVALID FOR* Priority: C Diverticulosis of colon (without mention of hem*INVALID FOR* Priority: C More... More... Essential hypertension [I10] INVALID FOR* Priority: A More... Tobacco abuse [Z72.0] INVALID FOR*08/05/2016 Priority: D More... Other pulmonary embolism and infarction [I26.99]INVALID FOR* Priority: B More... Mixed hyperlipidemia [E78.2] INVALID FOR* Priority: A More... More... Leg edema [R60.0] INVALID FOR* Priority: B More... Postinflammatory pulmonary fibrosis (HCC) [J84.*INVALID FOR* Priority: A Adenomatous colon polyp [D12.6] INVALID FOR* Priority: C More... 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 Screening for colon cancer [Z12.11] INVALID FOR* Mixed simple and mucopurulent chronic bronchiti*INVALID FOR* Priority: A Agent orange exposure [Z77.098] INVALID FOR* Priority: B Coronary artery disease due to lipid rich plaqu*INVALID FOR* Priority: A More... Well adult exam [Z00.00] INVALID FOR* Priority: E More... Chronic obstructive pulmonary disease (COPD) (H* Priority: A Ex-smoker [Z87.891] INVALID FOR*06/14/2018 Priority: B More... Ex-user of chewing tobacco [Z87.898] INVALID FOR* Priority: B More... Medicare annual wellness visit, subsequent [Z00*INVALID FOR* Priority: E More... PVC's (premature ventricular contractions) [I49*INVALID FOR* Priority: A Thoracic aortic aneurysm without rupture (HCC) *INVALID FOR* Priority: A More... Lumbar foraminal stenosis [M99.83] INVALID FOR* Priority: M More... Herniation of intervertebral disc between L4 an*INVALID FOR* Priority: M Acute deep vein thrombosis (DVT) of proximal ve*INVALID FOR* Priority: B More... 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 Epididymo-orchitis [N45.3] INVALID FOR* Priority: C More... Obesity, Class I, BMI 30-34.9 [E66.9] INVALID FOR* Priority: B Bilateral leg weakness [R29.898] INVALID FOR* At high risk for falls [Z91.81] INVALID FOR* Prostate disorder [N42.9] INVALID FOR* Renal insufficiency [N28.9] INVALID FOR* Anemia [D64.9] INVALID FOR* Visit Notes: >> Chetna Webber Ma Wed Jul 26, 2018 10:48 AM Status: Signed Patient presents with: New Patient: Scrotal Cyst Encounter Status:Closed by VINICIO ROONEY MD, FACS, V on 07/26/18 PROGRESS Observed: 07/26/2018 Status: COMPLETED Source: [place] 12:00 AM [facility] REPOSITORY HNO ID: [id number] Author: Vinicio Rooney V Service: Urology Author Type: Physician Type: Progress Notes Filed: 07/28/2018 8:48 AM Note Text: [facility] NOTE DEPARTMENT OF UROLOGY [place] NAME: JOVANI HOLMAN GRICELDA NO.: [id number] DATE OF SERVICE: 07/26/2018 A 67-year-old male referred by Dr. Zacarias regarding a left scrotal mass. Review of systems: Eyes, ears, nose, and throat; cardiovascular, respiratory, integumentary, neurological, extremities, abdominal systems are negative. Denies recreational drug use or smoking. He recently developed bilateral DVTs with thrombi migrating to his lungs. He is currently on anticoagulants for that, in particular Coumadin. He takes Cardura 8 mg for obstructive voiding and BPH. A recent ultrasound demonstrated what appears to be a large spermatocele with multiple septal areas. The testicle itself looks unremarkable, nothing to suggest testicular cancer. Right testicle is entirely normal. I indicated to the patient because it is extremely tender on physical exam that there is no infection but it just needs to be removed. We will be scheduling the surgery sometime in September. Erections are stable but starting to fade. We are going to start him on Viagra and submit that to see if he can perform. His does not have any interest but we are hoping that will change when he is able to get an adequate erection. He is urinating well utilizing the Cardura. Day frequency every 3-4 hours. Night frequency x1. Denies incontinence, dysuria, or hematuria. Genital examination is as noted. Prostate is plus/minus and nontender. Eyes, ears, nose, and throat; cardiovascular, respiratory, integumentary, neurological, extremities, abdominal systems within normal limits. DISCHARGE DIAGNOSES: 1. Symptomatic left spermatocele, scrotal cystic mass. 2. Benign prostatic hypertrophy. 3. Erectile dysfunction. 4. Probable hypogonadism. PSA at the IN was reported as being normal. I do not have a lab test to confirm that. Surgery will be scheduled as noted. Total time 45 minutes. DICTATED BY: Vinicio Rooney M.D. GC/Shreyas JOB# [id number] PROTIME Collected: 07/20/2018 Status: F Source: [place] 11:42 AM [facility] REPOSITORY TYPE CODE TESTS RESULT OUT OF REFERENCE UNITS RANGE LAB PSEC 9.7-13.0 sec Test PT sent to [facility]. Result Comment: Account Credited HIDE LAB INR 0.9-1.3 Test sent to PT INR [facility]. Result Comment: Account Credited HIDE CBC AND DIFFERENTIAL Collected: 07/20/2018 Status: F Source: [place] 11:41 AM [facility] REPOSITORY TYPE CODE TESTS RESULT OUT OF REFERENCE UNITS RANGE LAB WBC 3.70-11.00 k/uL WBC 5.65 LAB RBC 4.20-6.00 m/uL RBC 4.32 LAB HGB 13.0-17.0 g/dL Hemoglobin 13.5 LAB HCT 39.0-51.0 % Hematocrit 41.4 LAB MCV 80.0-100.0 fL MCV 95.8 LAB MCH 26.0-34.0 pG MCH 31.3 LAB MCHC 30.5-36.0 g/dL MCHC 32.6 LAB RDWCV 11.5-15.0 % RDW-CV 13.5 LAB PLTCT 150-400 k/uL Platelet Count 182 LAB MPV 9.0-12.7 fL MPV 12.2 LAB ANEUT % Neut% 48.7 LAB AANEUT 1.45-7.50 k/uL Abs Neut 2.74 LAB ALYMP % Lymph% 37.2 LAB AALYMP 1.00-4.00 k/uL Abs Lymph 2.10 LAB AMONO % [place]% 11.3 LAB AAMONO <0.87 k/uL Abs [place] 0.64 LAB AEOS % Eosin% 2.3 LAB AAEOS <0.46 k/uL Abs Eosin 0.13 LAB ABASO % Baso% 0.5 LAB AABASO <0.11 k/uL Abs Baso 0.03 LAB AUNRBC 0 /100 WBC NRBCs 0.0 LAB ABNRBC <0.01 k/uL Absolute nRBC <0.01 LAB DTYP DTYPE Auto Diff Performed By: #### CBCDIF, BMP #### [facility] [address] [place] [id number] BASIC METABOLIC PANL Collected: 07/20/2018 Status: F Source: [place] 11:41 AM [facility] REPOSITORY TYPE CODE TESTS RESULT OUT OF REFERENCE UNITS RANGE LAB GLU 74-99 mg/dL High Glucose 114 Result Comment: The [place] Diabetes Association (ADA) provides guidance for cutoff values for fasting glucose and random glucose. The ADA defines fasting as no caloric intake for at least 8 hours. Fas ting plasma glucose results between 100 to 125 mg/dL indicate increased risk for diabetes (prediabetes). Fasting plasma glucose results greater than or equal to 126 mg/dL meet the criteria for diagnosis of diabetes. In the absence of unequivocal hyperglycemia, results should be confirmed by repeat testing. In a patient with classic symptoms of hyperglycemia or hyperglycemic crisis, random plasma glucose results greater than or equal to 200 mg/dL meet the criteria for diagnosis of diabetes. Reference: Standards of Medical Care in Diabetes 2016, [place] [employer] Association. Diabetes Care. 2016.39(Suppl 1). LAB BUN 9-24 mg/dL BUN 17 LAB CRET 0.73-1.22 mg/dL Creatinine 1.06 LAB NA 136-144 mmol/L Sodium 139 LAB K 3.7-5.1 mmol/L Potassium 3.9 LAB CL 97-105 mmol/L Chloride 101 LAB CO2 22-30 mmol/L CO2 23 LAB AGAP 9-18 mmol/L Anion Gap 15 LAB CA 8.5-10.2 mg/dL Calcium, Total 9.7 LAB GFRAA eGFR- Amer. >60 LAB GFRNAA . eGFR-All Other Races >60 Result Comment: eGFR (Estimated GFR) Units of measure: mL/min/1.73 meters squared eGFR is derived from the reexpressed MDRD Study equation using the following parameters: serum creatinine, age, gender and race. The creatinine assay has been calibrated to be traceable to IDMS. An eGFR <60 mL/min/1.73m2 for >3 months is consistent with chronic kidney disease. Refer to KDOQI guidelines for clinical interpretation. In patients with unstable renal function, e.g. those with acute kidney injury, the eGFR may not accurately reflect actual GFR. Performed By: #### CBCDIF, BMP #### [facility] [address] [place], [place] [address] PROTHROMBIN TIME W/INR Collected: 07/20/2018 Status: F Source: [place] 11:35 AM [facility] REPOSITORY TYPE CODE TESTS RESULT OUT OF RANGE REFERENCE UNITS LAB L300.4150 11.7-14.9 SECONDS High PROTIME 20.2 LAB L300.4200 Normal INR 1.7 Performed By: #### L300.3900 #### [facility] [address] [place], [address] PROGRESS Observed: 07/14/2018 Status: COMPLETED Source: [place] 10:06 AM [facility] REPOSITORY HNO ID: [id number] Author: Herminio Linares Service: (none) Author Type: Physician Type: Progress Notes Filed: 07/14/2018 8:31 PM Note Text: Chief Complaint Patient presents with: Recheck: 6 months HPI Jovani Holman is a 67 year old male who presents here today for Chronic Medical Conditions.. Patient with hx of HTN, Hyperlipidemia, COPD, GERD, inferior vena cava thrombosis and seeing vascular and anticioagulated as well as those reviewed and addressed below. Is improving. The right leg continues to swell easily and wears a support sock. Is up and moving around and the pain in the leg has reduced. Past medical history, appointments, medications, allergies reviewed. Previous Medical History PAST MEDICAL HISTORY Diagnosis Date - Acute deep vein thrombosis (DVT) of proximal vein of both lower extremities ([facility]) 05/12/2018 - Adenomatous colon polyp 10/25/20132008 - Agent orange exposure 02/21/2016 - Bladder neck obstruction 09/19/2008 - BPH (benign prostatic hypertrophy) 09/19/2008 - Chewing tobacco use 01/11/2018 - Chronic obstructive pulmonary disease (COPD) ([facility]) - Coronary artery disease due to lipid rich plaque 01/11/2018 Cath around 2010 was told had one vessel at 30% blocked and maker at 50 %. As to be managed medically. 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 if this was a true Dx. - Mixed hyperlipidemia 09/14/2010 Chol 182 Tri 98 HDL 35 LDL 127 - Mixed simple and mucopurulent chronic bronchitis (HCC) 01/22/2016 - Obesity, Class I, BMI 30-34.9 06/24/2018 - RAYRAY (obstructive sleep apnea) AHI 5.1 per 4% AND OS 10/15/2015 Was not able to tolerate - Other pulmonary embolism and infarction 09/13/2010 -pt had PE and DVT in 2005 after back surgery -an IVC filter was placed then and is still in place Was on coumadin for a time and then quit taking it on his own - Postinflammatory pulmonary fibrosis (HCC) 09/16/2010 - Presence of IVC filter 12/29/2014 - PVC's (premature ventricular contractions) 01/11/2018 - SOLAR LENGINES 06/08/2006 - Thoracic aortic aneurysm without rupture (HCC) 02/22/2018 See who patient sees cardio [place] next visit (07/14/2018) Previous Surgical History PAST SURGICAL HISTORY Procedure Laterality Date - 2D ECHO (EXEP) 01/13/2018 EF= 64%, Mild LVH and Tucker Dys, Mild LA enlargement and dialted ascending Aorta - COLONOS W/REM POLYP SNARE 01/06/16 adenomatous polyp - 3 year follow up - COLONOSCOP W/ OR W/O BRSH SPEC 10/23/2008 Colonoscopy, tubular adenoma - KIDNEY SURGERY HX - LEFT HEART CATH,PERCUTANEOUS 09/14/2010 Cardiac cath, L heart - PAST SURGICAL HISTORY OF 1997 partial removal left lung - [facility] - PAST SURGICAL HISTORY OF 3 back surgeries - REMV LENS MATERIAL,PHACOFRAGMT 2009 Cataract Extraction (right and left) - STRESS TEST 01/16/2018 normal Family History FAMILY HISTORY Problem Relation Age of Onset - Diabetes Father - Stroke Father - Stroke Mother - Alzheimer's Disease Mother - Cancer Brother throat ca Patient Allergies ALLERGIES Allergen Reactions - Bactrim [Sulfametho* Other: See Comments sore throat - Levaquin [Levofloxa* GI Upset Current Medications Current Outpatient Prescriptions on File Prior to Visit: warfarin (COUMADIN) 2 mg tablet Take 1 tablet by mouth daily as directed. warfarin (COUMADIN) 2.5 mg tablet Take 2 tablets by mouth daily as directed. Take daily dose as instructed by physician. atorvastatin (LIPITOR) 10 mg tablet Take 2 tablets by mouth once daily. (Patient taking differently: Take 10 mg by mouth daily at bedtime. ) doxazosin (CARDURA) 8 mg tablet Take 1 tablet by mouth every evening. hydrochlorothiazide (HYDRODIURIL, ESIDRIX) 25 mg tablet Take 1 tablet by mouth once daily. omeprazole (PRILOSEC) 20 mg capsule Take 1 capsule by mouth daily before breakfast. 1/2 hr before meal. No current facility-administered medications on file prior to visit. Social History Social History Marital status: Spouse name: Years of education: Number of children: 3 Social History Main Topics Smoking status: Former Smoker Packs/day: 0.50 Years: 40.00 Types: Cigarettes Quit date: 12/04/2010 Smokeless tobacco: Current User Types: Chew Comment: quit smoking and chewing tobacco Alcohol use: No Drug use: No Review of Symptoms REVIEW OF SYSTEMS GENERAL: No weight loss, malaise or fevers NECK: Negative for lumps, goiter, pain and significant neck swelling RESPIRATORY: Negative for cough, hemoptysis, wheezing, COPD, dyspnea or shortness of breath CARDIOVASCULAR: Negative for chest pain, hypertension, CHF or palpitations. See HPI GI: No nausea, vomiting, or diarrhea and No frequent heartburn or reflux symptoms and rarely needs a prevacid MUSCULOSKELETAL: See HPI NEURO: No history of headaches, syncope, paralysis, seizures or tremors EXAM: BP 122/90 Pulse 76 Resp 16 Wt 93.9 kg (207 lb) BMI 30.57 kg/m? BP 112/78 Pulse 76 Resp 16 Wt 93.9 kg (207 lb) BMI 30.57 kg/m? General Appearance: Well appearing, alert, in no acute distress, well-hydrated, well nourished. and Overweight. Eyes: Anicteric sclera. Pupils are equally round and reactive to light. Extraocular movements are intact. . Neck: Supple, no adenopathy; thyroid symmetric, normal size, no bruits. Lungs: lungs clear to auscultation. No wheezing, rhonchi, rales. Heart: RRR without murmur, gallop, or rubs. No ectopy. Abdomen: Normal abdominal exam, Abdomen soft, non-tender. Bowel sounds normal. No masses, organomegaly. Extremities: No deformities or skin discoloration. Has pitting edema on the right lower extremity but improved. Peripheral Pulses: Normal. Neurologic: Gait normal. No gross motor or sensory deficits.. Health Maintenance List DTAP,TDAP,TD(1 - Tdap) due on 1967 HEPATITIS C SCREENING due on 1992 LDL CHOLESTEROL due on 04/21/2018 STATIN MED ADHERENCE due on 08/05/2018 COLORECTAL CANCER SCREENING,SEE MODIFIER due on 01/05/2019 ANNUAL PCP TEAM CHRONIC DISEASE VISIT due on 06/27/2019 BP CONTROLLED (<130/80) due on 07/10/2019 DIABETES SCREEN due on 06/22/2021 LIPID SCREEN due on 04/21/2022 ABDOMINAL AORTIC ANEURYSM SCREENING TOPIC Completed ADULT PREVNAR-13 Completed PNEUMOVAX AGE 65 AND OVER WITH 5YR LOOKBACK Completed Data reviewed Component Latest Ref Rng AND Units 04/21/2017 06/22/2018 WBC 3.70 - 11.00 k/uL 5.16 8.29 RBC 4.20 - 6.00 m/uL 4.69 3.88 (L) HGB 14 - 16.5 g/dL 15.4 HCT 39 - 55 % 45.2 MCV 80.0 - 100.0 fL 96.4 98.2 MCH 26.0 - 34.0 pG 32.8 32.0 MCHC 30.5 - 36.0 g/dL 34.1 32.5 Platelet 140 - 440 K/uL 165 NEUT % 40 - 74 % 50.6 LYMPH % 20 - 30 % 37.2 (A) MONO % 2 - 8 % 9.5 (A) EOS % 1 - 3 % 2.1 BASO % 0 - 1.5 % 0.6 NEUT ABS 1.9 - 8 K/uL 2.61 LYMPH ABS 1.2 - 4 K/uL 1.92 MONO ABS 0 - 1 K/uL 0.49 EOS ABS 0.1 - 0.3 K/uL 0.11 BASO ABS 0 - 0.2 K/uL 0.03 Protein, Total 6.3 - 8.0 g/dL 6.5 Albumin 3.9 - 4.9 g/dL 4 3.6 (L) Calcium 8.5 - 10.2 mg/dL 8.9 Bilirubin, Total 0.2 - 1.3 mg/dL 1.0 Alkaline Phosphatase 38 - 113 U/L 83 AST 14 - 40 U/L 31 13 (L) Glucose 74 - 99 mg/dL 109 (A) 101 (H) BUN 9 - 24 mg/dL 20 (A) 18 Creatinine 0.73 - 1.22 mg/dL 1.1 1.27 (H) Sodium 136 - 144 mmol/L 135 (L) Potassium 3.7 - 5.1 mmol/L 3.9 Chloride 97 - 105 mmol/L 105 99 CO2 22 - 30 mmol/L 24 26 Anion Gap 9 - 18 mmol/L 10 ALT 10 - 54 U/L 13 eGFR- >60 eGFR-All Other Races . 56 NA 136 - 145 mmol/L 138 K 3.5 - 5.1 mmol/L 3.4 (A) GFR mL/MIN 67 Total Protein 6.4 - 8.2 gm/dL 6.9 Calcium 8.5 - 10.1 mg/dL 9.4 Bili Total 0.2 - 1 mg/dL 0.8 ALT (SGPT) 12 - 78 U/L 34 Alk Phos Total 45 - 117 U/L 83 Hemoglobin 13.0 - 17.0 g/dL 12.4 (L) Hematocrit 39.0 - 51.0 % 38.1 (L) RDW-CV 11.5 - 15.0 % 13.1 Platelet Count 150 - 400 k/uL 147 (L) MPV 9.0 - 12.7 fL 11.8 Cholesterol, Total 200 145 Triglyceride 150 88 HDL CHOLESTEROL 40 65 LDL Cholesterol 70 75 (A) TSH 0.2 - 5.6 IU/ml 0.52 Hemoglobin A1C 4.3 - 5.6 5.2 A/P ASSESSMENT/PLAN: 1. Essential hypertension - ICD9: 401.9, ICD10: I10 (primary diagnosis) - good control - Continue current medication(s) - Recommended regular aerobic exercise. - Recommend home blood pressure monitoring, to bring results in on next visit - Goal of BP <140/90 2. Mixed hyperlipidemia - ICD9: 272.2, ICD10: E78.2 - good control - Encouraged following a low fat, low cholesterol diet. - Discussed the benefits of regular aerobic exercise and weight loss. - Encouraged following a low carbohydrate, healthy oil intake diet. - Continue current therapy. 3. Coronary artery disease due to lipid rich plaque - ICD9: 414.00, 414.3, ICD10: I25.10, I25.83 - Clinically stable no changes and cont cardiac f/u 4. Thoracic aortic aneurysm without rupture (HCC) - ICD9: 441.2, ICD10: I71.2 - As per #3 5. PVC's (premature ventricular contractions) - ICD9: 427.69, ICD10: I49.3 - Clinically stable. 6. 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 Gastroesophageal reflux disease without esophagitis - ICD9: 530.81, ICD10: K21.9 - Continue treatment with Prevacid 30 mg QD as needed. 8. Chronic obstructive pulmonary disease, unspecified COPD type (HCC) - ICD9: 496, ICD10: J44.9 - Clinically stable and has not needed inhalers. Will monitor 9. Postinflammatory pulmonary fibrosis (HCC) - ICD9: 515, ICD10: J84.10 - As per #8 10. Mixed simple and mucopurulent chronic bronchitis (HCC) - ICD9: 491.1, ICD10: J41.8 - as per #8 11. RAYRAY (obstructive sleep apnea) AHI 5.1 per 4% AND OS - ICD9: 327.23, ICD10: G47.33 - Could not tolerate CPAP 12. Embolism of inferior vena cava (HCC) - ICD9: 453.2, ICD10: I82.220 - As per #6 13. Acute deep vein thrombosis (DVT) of proximal vein of both lower extremities (HCC) - ICD9: 453.41, ICD10: I82.4Y3 - As per #6 14. Obesity, Class I, BMI 30-34.9 - ICD9: 278.00, ICD10: E66.9 - Patient to continue working on increased activity . 15. Ex-user of chewing tobacco - ICD9: V15.82, ICD10: Z87.898 - Patient has been without since May. Praises given and hope for continued abstinence. F/u 6 months Extensive and medicare wellness check CMP, FLP, UA, PSA, CBC prior. Will check CBC in 1-2 weeks Herminio Linares MD CNOV Observed: 07/14/2018 Status: COMPLETED Source: [place] 9:40 AM [facility] REPOSITORY Office Visit (FAMPWS) JOVANI HOLMAN ([id number]) 1950 M Date Time Provider Department 07/14/18 9:40 AM HERMINIO LINARES During your visit today, we recorded the following information about you: Pulse Respiration Blood pressure Weight 76/minute 16/minute 112/78 93.9 kg Herminio Linares MD 07/14/2018 8:31 PM Signed Chief Complaint Patient presents with: Recheck: 6 months HPI Jovani Holman is a 67 year old male who presents here today for Chronic Medical Conditions.. Patient with hx of HTN, Hyperlipidemia, COPD, GERD, inferior vena cava thrombosis and seeing vascular and anticioagulated as well as those reviewed and addressed below. Is improving. The right leg continues to swell easily and wears a support sock. Is up and moving around and the pain in the leg has reduced. Past medical history, appointments, medications, allergies reviewed. Previous Medical History PAST MEDICAL HISTORY Diagnosis Date - Acute deep vein thrombosis (DVT) of proximal vein of both lower extremities (HCC) 05/12/2018 - Adenomatous colon polyp 10/25/20132008 - Agent orange exposure 02/21/2016 - Bladder neck obstruction 09/19/2008 - BPH (benign prostatic hypertrophy) 09/19/2008 - Chewing tobacco use 01/11/2018 - Chronic obstructive pulmonary disease (COPD) ([facility]) - Coronary artery disease due to lipid rich plaque 01/11/2018 Cath around 2010 was told had one vessel at 30% blocked and maker at 50 %. As to be managed medically. 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 if this was a true Dx. - Mixed hyperlipidemia 09/14/2010 Chol 182 Tri 98 HDL 35 LDL 127 - Mixed simple and mucopurulent chronic bronchitis (HCC) 01/22/2016 - Obesity, Class I, BMI 30-34.9 06/24/2018 - RAYRAY (obstructive sleep apnea) AHI 5.1 per 4% AND OS 10/15/2015 Was not able to tolerate - Other pulmonary embolism and infarction 09/13/2010 -pt had PE and DVT in 2005 after back surgery -an IVC filter was placed then and is still in place Was on coumadin for a time and then quit taking it on his own - Postinflammatory pulmonary fibrosis (HCC) 09/16/2010 - Presence of IVC filter 12/29/2014 - PVC's (premature ventricular contractions) 01/11/2018 - SOLAR LENGINES 06/08/2006 - Thoracic aortic aneurysm without rupture (HCC) 02/22/2018 See who patient sees cardio [place] next visit (07/14/2018) Previous Surgical History PAST SURGICAL HISTORY Procedure Laterality Date - 2D ECHO (EXEP) 01/13/2018 EF= 64%, Mild LVH and Tucker Dys, Mild LA enlargement and dialted ascending Aorta - COLONOS W/REM POLYP SNARE 01/06/16 adenomatous polyp - 3 year follow up - COLONOSCOP W/ OR W/O BRSH SPEC 10/23/2008 Colonoscopy, tubular adenoma - KIDNEY SURGERY HX - LEFT HEART CATH,PERCUTANEOUS 09/14/2010 Cardiac cath, L heart - PAST SURGICAL HISTORY OF 1997 partial removal left lung - [facility] - PAST SURGICAL HISTORY OF 3 back surgeries - REMV LENS MATERIAL,PHACOFRAGMT 2009 Cataract Extraction (right and left) - STRESS TEST 01/16/2018 normal Family History FAMILY HISTORY Problem Relation Age of Onset - Diabetes Father - Stroke Father - Stroke Mother - Alzheimer's Disease Mother - Cancer Brother throat ca Patient Allergies ALLERGIES Allergen Reactions - Bactrim [Sulfametho* Other: See Comments sore throat - Levaquin [Levofloxa* GI Upset Current Medications Current Outpatient Prescriptions on File Prior to Visit: warfarin (COUMADIN) 2 mg tablet Take 1 tablet by mouth daily as directed. warfarin (COUMADIN) 2.5 mg tablet Take 2 tablets by mouth daily as directed. Take daily dose as instructed by physician. atorvastatin (LIPITOR) 10 mg tablet Take 2 tablets by mouth once daily. (Patient taking differently: Take 10 mg by mouth daily at bedtime. ) doxazosin (CARDURA) 8 mg tablet Take 1 tablet by mouth every evening. hydrochlorothiazide (HYDRODIURIL, ESIDRIX) 25 mg tablet Take 1 tablet by mouth once daily. omeprazole (PRILOSEC) 20 mg capsule Take 1 capsule by mouth daily before breakfast. 1/2 hr before meal. No current facility-administered medications on file prior to visit. Social History Social History Marital status: Spouse name: Years of education: Number of children: 3 Social History Main Topics Smoking status: Former Smoker Packs/day: 0.50 Years: 40.00 Types: Cigarettes Quit date: 12/04/2010 Smokeless tobacco: Current User Types: Chew Comment: quit smoking and chewing tobacco Alcohol use: No Drug use: No Review of Symptoms REVIEW OF SYSTEMS GENERAL: No weight loss, malaise or fevers NECK: Negative for lumps, goiter, pain and significant neck swelling RESPIRATORY: Negative for cough, hemoptysis, wheezing, COPD, dyspnea or shortness of breath CARDIOVASCULAR: Negative for chest pain, hypertension, CHF or palpitations. See HPI GI: No nausea, vomiting, or diarrhea and No frequent heartburn or reflux symptoms and rarely needs a prevacid MUSCULOSKELETAL: See HPI NEURO: No history of headaches, syncope, paralysis, seizures or tremors EXAM: BP 122/90 Pulse 76 Resp 16 Wt 93.9 kg (207 lb) BMI 30.57 kg/m? BP 112/78 Pulse 76 Resp 16 Wt 93.9 kg (207 lb) BMI 30.57 kg/m? General Appearance: Well appearing, alert, in no acute distress, well-hydrated, well nourished. and Overweight. Eyes: Anicteric sclera. Pupils are equally round and reactive to light. Extraocular movements are intact. . Neck: Supple, no adenopathy; thyroid symmetric, normal size, no bruits. Lungs: lungs clear to auscultation. No wheezing, rhonchi, rales. Heart: RRR without murmur, gallop, or rubs. No ectopy. Abdomen: Normal abdominal exam, Abdomen soft, non-tender. Bowel sounds normal. No masses, organomegaly. Extremities: No deformities or skin discoloration. Has pitting edema on the right lower extremity but improved. Peripheral Pulses: Normal. Neurologic: Gait normal. No gross motor or sensory deficits.. Health Maintenance List DTAP,TDAP,TD(1 - Tdap) due on 1967 HEPATITIS C SCREENING due on 1992 LDL CHOLESTEROL due on 04/21/2018 STATIN MED ADHERENCE due on 08/05/2018 COLORECTAL CANCER SCREENING,SEE MODIFIER due on 01/05/2019 ANNUAL PCP TEAM CHRONIC DISEASE VISIT due on 06/27/2019 BP CONTROLLED (<130/80) due on 07/10/2019 DIABETES SCREEN due on 06/22/2021 LIPID SCREEN due on 04/21/2022 ABDOMINAL AORTIC ANEURYSM SCREENING TOPIC Completed ADULT PREVNAR-13 Completed PNEUMOVAX AGE 65 AND OVER WITH 5YR LOOKBACK Completed Data reviewed Component Latest Ref Rng AND Units 04/21/2017 06/22/2018 WBC 3.70 - 11.00 k/uL 5.16 8.29 RBC 4.20 - 6.00 m/uL 4.69 3.88 (L) HGB 14 - 16.5 g/dL 15.4 HCT 39 - 55 % 45.2 MCV 80.0 - 100.0 fL 96.4 98.2 MCH 26.0 - 34.0 pG 32.8 32.0 MCHC 30.5 - 36.0 g/dL 34.1 32.5 Platelet 140 - 440 K/uL 165 NEUT % 40 - 74 % 50.6 LYMPH % 20 - 30 % 37.2 (A) MONO % 2 - 8 % 9.5 (A) EOS % 1 - 3 % 2.1 BASO % 0 - 1.5 % 0.6 NEUT ABS 1.9 - 8 K/uL 2.61 LYMPH ABS 1.2 - 4 K/uL 1.92 MONO ABS 0 - 1 K/uL 0.49 EOS ABS 0.1 - 0.3 K/uL 0.11 BASO ABS 0 - 0.2 K/uL 0.03 Protein, Total 6.3 - 8.0 g/dL 6.5 Albumin 3.9 - 4.9 g/dL 4 3.6 (L) Calcium 8.5 - 10.2 mg/dL 8.9 Bilirubin, Total 0.2 - 1.3 mg/dL 1.0 Alkaline Phosphatase 38 - 113 U/L 83 AST 14 - 40 U/L 31 13 (L) Glucose 74 - 99 mg/dL 109 (A) 101 (H) BUN 9 - 24 mg/dL 20 (A) 18 Creatinine 0.73 - 1.22 mg/dL 1.1 1.27 (H) Sodium 136 - 144 mmol/L 135 (L) Potassium 3.7 - 5.1 mmol/L 3.9 Chloride 97 - 105 mmol/L 105 99 CO2 22 - 30 mmol/L 24 26 Anion Gap 9 - 18 mmol/L 10 ALT 10 - 54 U/L 13 eGFR- >60 eGFR-All Other Races . 56 NA 136 - 145 mmol/L 138 K 3.5 - 5.1 mmol/L 3.4 (A) GFR mL/MIN 67 Total Protein 6.4 - 8.2 gm/dL 6.9 Calcium 8.5 - 10.1 mg/dL 9.4 Bili Total 0.2 - 1 mg/dL 0.8 ALT (SGPT) 12 - 78 U/L 34 Alk Phos Total 45 - 117 U/L 83 Hemoglobin 13.0 - 17.0 g/dL 12.4 (L) Hematocrit 39.0 - 51.0 % 38.1 (L) RDW-CV 11.5 - 15.0 % 13.1 Platelet Count 150 - 400 k/uL 147 (L) MPV 9.0 - 12.7 fL 11.8 Cholesterol, Total 200 145 Triglyceride 150 88 HDL CHOLESTEROL 40 65 LDL Cholesterol 70 75 (A) TSH 0.2 - 5.6 IU/ml 0.52 Hemoglobin A1C 4.3 - 5.6 5.2 A/P ASSESSMENT/PLAN: 1. Essential hypertension - ICD9: 401.9, ICD10: I10 (primary diagnosis) - good control - Continue current medication(s) - Recommended regular aerobic exercise. - Recommend home blood pressure monitoring, to bring results in on next visit - Goal of BP <140/90 2. Mixed hyperlipidemia - ICD9: 272.2, ICD10: E78.2 - good control - Encouraged following a low fat, low cholesterol diet. - Discussed the benefits of regular aerobic exercise and weight loss. - Encouraged following a low carbohydrate, healthy oil intake diet. - Continue current therapy. 3. Coronary artery disease due to lipid rich plaque - ICD9: 414.00, 414.3, ICD10: I25.10, I25.83 - Clinically stable no changes and cont cardiac f/u 4. Thoracic aortic aneurysm without rupture (HCC) - ICD9: 441.2, ICD10: I71.2 - As per #3 5. PVC's (premature ventricular contractions) - ICD9: 427.69, ICD10: I49.3 - Clinically stable. 6. 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 Gastroesophageal reflux disease without esophagitis - ICD9: 530.81, ICD10: K21.9 - Continue treatment with Prevacid 30 mg QD as needed. 8. Chronic obstructive pulmonary disease, unspecified COPD type (HCC) - ICD9: 496, ICD10: J44.9 - Clinically stable and has not needed inhalers. Will monitor 9. Postinflammatory pulmonary fibrosis (HCC) - ICD9: 515, ICD10: J84.10 - As per #8 10. Mixed simple and mucopurulent chronic bronchitis (HCC) - ICD9: 491.1, ICD10: J41.8 - as per #8 11. RAYRAY (obstructive sleep apnea) AHI 5.1 per 4% AND OS - ICD9: 327.23, ICD10: G47.33 - Could not tolerate CPAP 12. Embolism of inferior vena cava (HCC) - ICD9: 453.2, ICD10: I82.220 - As per #6 13. Acute deep vein thrombosis (DVT) of proximal vein of both lower extremities (HCC) - ICD9: 453.41, ICD10: I82.4Y3 - As per #6 14. Obesity, Class I, BMI 30-34.9 - ICD9: 278.00, ICD10: E66.9 - Patient to continue working on increased activity . 15. Ex-user of chewing tobacco - ICD9: V15.82, ICD10: Z87.898 - Patient has been without since May. Praises given and hope for continued abstinence. F/u 6 months Extensive and medicare wellness check CMP, FLP, UA, PSA, CBC prior. Will check CBC in 1-2 weeks MD Herminio Romero MD 07/14/2018 10:32 AM Signed Please get none fasting lab for blood count and kidney function in 1-2 weeks. Hydrate with water well the day prior. Please get fasting labs and urine test on or after 12/29/2018 prior to next visit. Referring Provider: PIPE CAMPOS [[id number]] Allergies As of Date: 07/14/2018 Noted Allergy Reaction BACTRIM (SULFAMETHOXAZOLE-TRIMETH*11/18/2008 14 - Other: See Comments Comments: sore throat LEVAQUIN (LEVOFLOXACIN) 06/10/2005 8 - GI Upset Date Reviewed: 07/14/2018 Reviewed by: Herminio Linares - Fully Assessed Reason for Visit: Recheck [92] Cmt: 6 months Primary Visit Diagnosis:Essential hypertension [I10] Other Visit Diagnoses:Mixed hyperlipidemia [E78.2] Coronary artery disease due to lipid rich plaque [I25.10, I25.83] Thoracic aortic aneurysm without rupture (HCC) [I71.2] PVC's (premature ventricular contractions) [I49.3] Inferior vena cava thromboembolism (HCC) [I82.220] Gastroesophageal reflux disease without esophagitis [K21.9] Chronic obstructive pulmonary disease, unspecified COPD type (HCC) [J44.9] Postinflammatory pulmonary fibrosis (HCC) [J84.10] Mixed simple and mucopurulent chronic bronchitis (HCC) [J41.8] RAYRAY (obstructive sleep apnea) AHI 5.1 per 4% AND OS [G47.33] Embolism of inferior vena cava (HCC) [I82.220] Acute deep vein thrombosis (DVT) of proximal vein of both lower extremities (HCC) [I82.4Y3] Obesity, Class I, BMI 30-34.9 [E66.9] Ex-user of chewing tobacco [Z87.898] Chronic anticoagulation [Z79.01] Prostate disorder [N42.9] Anemia, unspecified type [D64.9] Renal insufficiency [N28.9] Order(s):COMP METABOLIC PANEL [SQCMP] Order #: [id number] FUTURE URINALYSIS WITH MICROSCOPIC [SQUAWMIC] Order #: [id number] FUTURE PSA/PROSTSPECAG DIAG [SQPSA] Order #: [id number] FUTURE LIPID PANEL, NONFASTING [SQLIPNF] Order #: [id number] FUTURE CBC + DIFF [SQCBCDIF] Order #: [id number] FUTURE CBC + DIFF [SQCBCDIF] Order #: [id number] FUTURE BASIC METABOLIC PNL [SQBMP] Order #: [id number] FUTURE Prescriptions as of 07/14/2018 Sig: WARFARIN 2 MG TABLET Take 1 tablet by mouth daily * WARFARIN 2.5 MG TABLET Take 2 tablets by mouth daily* ATORVASTATIN 10 MG TABLET Take 2 tablets by mouth once * Patient taking differently: Take 10 mg by mouth daily at * DOXAZOSIN 8 MG TABLET Take 1 tablet by mouth every * HYDROCHLOROTHIAZIDE 25 MG TAB* Take 1 tablet by mouth once d* OMEPRAZOLE 20 MG CAPSULE,JULIET* Take 1 capsule by mouth daily* Problem List As Of Date 07/14/2018 Noted Resolved Tobacco use disorder [F17.200] 08/05/2016 SOLAR LENGINES [L81.9] INVALID FOR* Priority: D Idiopathic urticaria [L50.1] INVALID FOR* Priority: D Lumbago [M54.5] INVALID FOR* Priority: M Benign prostatic hyperplasia [N40.0] INVALID FOR* Priority: E More... Bladder neck obstruction [N32.0] INVALID FOR* Priority: C Diverticulosis of colon (without mention of hem*INVALID FOR* Priority: C More... More... Essential hypertension [I10] INVALID FOR* Priority: A More... Tobacco abuse [Z72.0] INVALID FOR*08/05/2016 Priority: D More... Other pulmonary embolism and infarction [I26.99]INVALID FOR* Priority: B More... Mixed hyperlipidemia [E78.2] INVALID FOR* Priority: A More... More... Leg edema [R60.0] INVALID FOR* Priority: B More... Postinflammatory pulmonary fibrosis (HCC) [J84.*INVALID FOR* Priority: A Adenomatous colon polyp [D12.6] INVALID FOR* Priority: C More... 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 Screening for colon cancer [Z12.11] INVALID FOR* Mixed simple and mucopurulent chronic bronchiti*INVALID FOR* Priority: A Agent orange exposure [Z77.098] INVALID FOR* Priority: B Coronary artery disease due to lipid rich plaqu*INVALID FOR* Priority: A More... Well adult exam [Z00.00] INVALID FOR* Priority: E More... Chronic obstructive pulmonary disease (COPD) (H* Priority: A Ex-smoker [Z87.891] INVALID FOR*06/14/2018 Priority: B More... Ex-user of chewing tobacco [Z87.898] INVALID FOR* Priority: B More... Medicare annual wellness visit, subsequent [Z00*INVALID FOR* Priority: E More... PVC's (premature ventricular contractions) [I49*INVALID FOR* Priority: A Thoracic aortic aneurysm without rupture (HCC) *INVALID FOR* Priority: A More... Lumbar foraminal stenosis [M99.83] INVALID FOR* Priority: M More... Herniation of intervertebral disc between L4 an*INVALID FOR* Priority: M Acute deep vein thrombosis (DVT) of proximal ve*INVALID FOR* Priority: B More... 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 Epididymo-orchitis [N45.3] INVALID FOR* Priority: C More... Obesity, Class I, BMI 30-34.9 [E66.9] INVALID FOR* Priority: B Bilateral leg weakness [R29.898] INVALID FOR* At high risk for falls [Z91.81] INVALID FOR* Prostate disorder [N42.9] INVALID FOR* Renal insufficiency [N28.9] INVALID FOR* Anemia [D64.9] INVALID FOR* Other instructions from your clinician: Please get none fasting lab for blood count and kidney function in 1-2 weeks. Hydrate with water well the day prior. Please get fasting labs and urine test on or after 12/29/2018 prior to next visit. Medications Discontinued During This Encounter aspirin, enteric coated (ASPIRIN, EN* 07/14/2018 Class: Historical Med Route: ORAL Sig: Take 81 mg by mouth once daily. Disc: Discontinued by another Health Care Provider COMPOUNDED PRESCRIPTION 1 De* 0 06/26/2018 07/14/2018 Class: Print RX Sig: Lift Chair to aid in getting from sitting to standing. Dx: R29.898, Z91.81 and !82.220 Disc: Reason for discontinue is not on file. Disposition: Return in about 6 months (around 01/11/2019) for [facility]/medicare wellness 40 min. Follow-up and Disposition History Recorded Encounter Status:Closed by HERMINIO LINARES on 07/14/18 PROGRESS Observed: 07/10/2018 Status: COMPLETED Source: [place] 10:19 AM [facility] REPOSITORY HNO ID: [id number] Author: Kusum Valentine Service: (none) Author Type: Physician Type: Progress Notes Filed: 07/10/2018 10:20 AM Note Text: This office note has been dictated. Kusum Valentine DO CNOV Observed: 07/10/2018 Status: COMPLETED Source: [place] 9:30 AM [facility] REPOSITORY Office Visit (VASSWS) JOVANI HOLMAN ([id number]) 1950 M Date Time Provider Department 07/10/18 9:30 AM KUSUM VALENTINES During your visit today, we recorded the following information about you: Pulse Blood pressure 80/minute 108/71 Kusum Valentine DO 07/10/2018 10:20 AM Signed This office note has been dictated. Kusum Valentine DO Referring Provider: HERMINIO LINARES [[id number]] Allergies As of Date: 07/10/2018 Noted Allergy Reaction BACTRIM (SULFAMETHOXAZOLE-TRIMETH*11/18/2008 14 - Other: See Comments Comments: sore throat LEVAQUIN (LEVOFLOXACIN) 06/10/2005 8 - GI Upset Date Reviewed: 07/10/2018 Reviewed by: Chema Golden RN - Fully Assessed Reason for Visit: Established Patient [175] Primary Visit Diagnosis:Personal history of DVT (deep vein thrombosis) [Z86.718] Other Visit Diagnosis:Inferior vena cava thromboembolism (HCC) [I82.220] Order(s):CANE, QUAD OR THREE PRONG [F1125BST] Order #: [id number] LEG VEIN DVT UNL VAS LAB [[id number]] Order #: [id number] FUTURE Prescriptions as of 07/10/2018 Sig: WARFARIN 2 MG TABLET Take 1 tablet by mouth daily * COMPOUNDED PRESCRIPTION Lift Chair to aid in getting * WARFARIN 2.5 MG TABLET Take 2 tablets by mouth daily* ATORVASTATIN 10 MG TABLET Take 2 tablets by mouth once * Patient taking differently: Take 10 mg by mouth daily at * ASPIRIN 81 MG TABLET,DELAYED * Take 81 mg by mouth once effie* DOXAZOSIN 8 MG TABLET Take 1 tablet by mouth every * HYDROCHLOROTHIAZIDE 25 MG TAB* Take 1 tablet by mouth once d* OMEPRAZOLE 20 MG CAPSULE,JULIET* Take 1 capsule by mouth daily* Problem List As Of Date 07/10/2018 Noted Resolved Tobacco use disorder [F17.200] 08/05/2016 SOLAR LENGINES [L81.9] INVALID FOR* Priority: D Idiopathic urticaria [L50.1] INVALID FOR* Priority: D Lumbago [M54.5] INVALID FOR* Priority: M Benign prostatic hyperplasia [N40.0] INVALID FOR* Priority: E More... Bladder neck obstruction [N32.0] INVALID FOR* Priority: C Diverticulosis of colon (without mention of hem*INVALID FOR* Priority: C More... More... Essential hypertension [I10] INVALID FOR* Priority: C More... Tobacco abuse [Z72.0] INVALID FOR*08/05/2016 Priority: D More... Other pulmonary embolism and infarction [I26.99]INVALID FOR* Priority: B More... Mixed hyperlipidemia [E78.2] INVALID FOR* Priority: D More... More... Leg edema [R60.0] INVALID FOR* Priority: B More... 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 Screening for colon cancer [Z12.11] INVALID FOR* Mixed simple and mucopurulent chronic bronchiti*INVALID FOR* Priority: A Agent orange exposure [Z77.098] INVALID FOR* Priority: B Coronary artery disease due to lipid rich plaqu*INVALID FOR* Priority: A More... Well adult exam [Z00.00] INVALID FOR* Priority: E More... Chronic obstructive pulmonary disease (COPD) (H* Priority: D Ex-smoker [Z87.891] INVALID FOR*06/14/2018 Priority: B More... Chewing tobacco use [Z72.0] INVALID FOR* Priority: B Medicare annual wellness visit, subsequent [Z00*INVALID FOR* Priority: E More... PVC's (premature ventricular contractions) [I49*INVALID FOR* Priority: A Thoracic aortic aneurysm without rupture (HCC) *INVALID FOR* Priority: A More... Lumbar foraminal stenosis [M99.83] INVALID FOR* More... Herniation of intervertebral disc between L4 an*INVALID FOR* Acute deep vein thrombosis (DVT) of proximal ve*INVALID FOR* Priority: B More... 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 Epididymo-orchitis [N45.3] INVALID FOR* Priority: C More... Inferior vena caval thrombosis (HCC) [I82.220] INVALID FOR* Obesity, Class I, BMI 30-34.9 [E66.9] INVALID FOR* Bilateral leg weakness [R29.898] INVALID FOR* At high risk for falls [Z91.81] INVALID FOR* Encounter Status:Closed by KUSUM VALENTINE DO on 07/10/18 PROGRESS Observed: 07/10/2018 Status: COMPLETED Source: [place] 12:00 AM [facility] REPOSITORY O ID: [id number] Author: Kusum Valentine Service: Vascular Surgery Author Type: Physician Type: Progress Notes Filed: 07/17/2018 4:43 PM Note Text: NAME: JOVANI HOLMAN [facility] NO: [id number] DATE OF SERVICE: 07/10/2018 Subjective: Mr. Holman is here to follow up on IVC filter thrombosis. He continues to have right groin. His swelling has slightly improved from admission, however, he still has right greater than left lower extremity pain. He was unable to tolerate the MEHDI hose stating they were causing him some foot discomfort. He is slowly ambulating and is starting to ambulate a little bit more, however, walking with a cane and walker. Objective: His vital signs are stable. He is in no distress. He has bilateral lower extremity edema, right greater than left. He has palpable distal pulses. Brisk capillary refill. No ulcerations or tissue loss. Assessment/Plan: IVC filter thrombosis. Discussed with Mr. Holman. Recommend compression stockings, elevation and continued walking and exercise as this will help improve his pain and walking distance. We will get an updated right lower extremity duplex to assess this, as he is still having a significant amount of pain there. He will follow up with me in three months, or sooner with any concerns. We will call with the results of his ultrasounds. We will also gain access to his CT scan that he had at [facility] in April. He will follow up with me sooner with any worsening symptoms. Kusum Valentine D.O. KB/[id number] Audio #: [id number] Date Dictated: 07/10/2018 10:10:50 Date Typed: 07/12/2018 11:56:30 Date Revised: PROTIME Collected: 07/06/2018 Status: F Source: [place] 12:03 PM [facility] REPOSITORY TYPE CODE TESTS RESULT OUT OF REFERENCE UNITS RANGE LAB PSEC 9.7-13.0 sec Test PT sent to [facility]. Result Comment: Account Credited HIDE LAB INR 0.9-1.3 Test sent to PT INR [facility]. Result Comment: Account Credited HIDE PROTHROMBIN TIME W/INR Collected: 07/06/2018 Status: F Source: [place] 12:00 AM [facility] REPOSITORY TYPE CODE TESTS RESULT OUT OF RANGE REFERENCE UNITS LAB L300.4150 11.7-14.9 SECONDS High PROTIME 26.8 LAB L300.4200 Normal INR 2.5 Performed By: #### L300.3900 #### [facility] [address] [place], [address] PROTIME Collected: 07/03/2018 Status: F Source: [place] 9:11 AM [facility] REPOSITORY TYPE CODE TESTS RESULT OUT OF REFERENCE UNITS RANGE LAB PSEC 9.7-13.0 sec Test PT sent to [facility]. Result Comment: Account Credited HIDE LAB INR 0.9-1.3 Test sent to PT INR [facility]. Result Comment: Account Credited HIDE PROTHROMBIN TIME W/INR Collected: 07/03/2018 Status: F Source: [place] 9:10 AM [facility] REPOSITORY TYPE CODE TESTS RESULT OUT OF RANGE REFERENCE UNITS LAB L300.4150 11.7-14.9 SECONDS High PROTIME 28.4 LAB L300.4200 Normal INR 2.7 Performed By: #### L300.3900 #### [facility] [address] [place], [place], [address] PROTIME Collected: 06/30/2018 Status: F Source: [place] 11:40 AM [facility] REPOSITORY TYPE CODE TESTS RESULT OUT OF REFERENCE UNITS RANGE LAB PSEC 9.7-13.0 sec Test PT sent to [facility]. Result Comment: Account Credited HIDE LAB INR 0.9-1.3 Test sent to PT INR [facility]. Result Comment: Account Credited HIDE PROTHROMBIN TIME W/INR Collected: 06/30/2018 Status: F Source: [place] 11:21 AM [facility] REPOSITORY TYPE CODE TESTS RESULT OUT OF RANGE REFERENCE UNITS LAB L300.4150 11.7-14.9 SECONDS High PROTIME 32.5 LAB L300.4200 Normal INR 3.1 Performed By: #### L300.3900 #### [facility] [address] [place], [place], [address] PROTIME Collected: 06/29/2018 Status: F Source: [place] 12:10 PM [facility] REPOSITORY TYPE CODE TESTS RESULT OUT OF REFERENCE UNITS RANGE LAB PSEC 9.7-13.0 sec Test PT sent to [facility]. Result Comment: Account Credited HIDE LAB INR 0.9-1.3 Test sent to PT INR [facility]. Result Comment: Account Credited AMAURY CNPN Observed: 06/29/2018 Status: COMPLETED Source: [place] 12:00 AM [facility] REPOSITORY Telephone (FAMPWS) JOVANI HOLMAN ([id number]) 1950 M Date Time Provider Department 06/29/18 HERMINIO LINARES During your visit today, we recorded the following information about you: Elizabeth Howard Ma 06/29/2018 1:14 PM Signed Last INR: PT INR 3.3 06/29/2018 Current dose of coumadin is: hold 06/27 and 2.5 06/28. Last date of dose change: 06/27. Previous INR (date and result): 06/27 3.4 Elizabeth Linares MD 06/29/2018 2:34 PM Signed Advise patient to hold coumadin today. Needs INR tomorrow. Elizabeth Howard Ma 06/29/2018 2:45 PM Signed Patient notified of results, verbalizes understanding of instructions. 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] Order(s):PROTHROMBIN TIME/PT [SQPT] Order #: [id number] Prescriptions as of 06/29/2018 Sig: OXYCODONE 5 MG CAPSULE Take 1 capsule by mouth every* COMPOUNDED PRESCRIPTION Lift Chair to aid in getting * WARFARIN 2.5 MG TABLET Take 2 tablets by mouth daily* CEPHALEXIN 500 MG CAPSULE Take 1 capsule by mouth every* ATORVASTATIN 10 MG TABLET Take 2 tablets by mouth once * Patient taking differently: Take 10 mg by mouth daily at * ASPIRIN 81 MG TABLET,DELAYED * Take 81 mg by mouth once effie* DOXAZOSIN 8 MG TABLET Take 1 tablet by mouth every * HYDROCHLOROTHIAZIDE 25 MG TAB* Take 1 tablet by mouth once d* OMEPRAZOLE 20 MG CAPSULE,JULIET* Take 1 capsule by mouth daily* Problem List As Of Date 06/29/2018 Noted Resolved Tobacco use disorder [F17.200] 08/05/2016 SOLAR LENGINES [L81.9] INVALID FOR* Priority: D Idiopathic urticaria [L50.1] INVALID FOR* Priority: D Lumbago [M54.5] INVALID FOR* Priority: M Benign prostatic hyperplasia [N40.0] INVALID FOR* Priority: E More... Bladder neck obstruction [N32.0] INVALID FOR* Priority: C Diverticulosis of colon (without mention of hem*INVALID FOR* Priority: C More... More... Essential hypertension [I10] INVALID FOR* Priority: C More... Tobacco abuse [Z72.0] INVALID FOR*08/05/2016 Priority: D More... Other pulmonary embolism and infarction [I26.99]INVALID FOR* Priority: B More... Mixed hyperlipidemia [E78.2] INVALID FOR* Priority: D More... More... Leg edema [R60.0] INVALID FOR* Priority: B More... 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 Screening for colon cancer [Z12.11] INVALID FOR* Mixed simple and mucopurulent chronic bronchiti*INVALID FOR* Priority: A Agent orange exposure [Z77.098] INVALID FOR* Priority: B Coronary artery disease due to lipid rich plaqu*INVALID FOR* Priority: A More... Well adult exam [Z00.00] INVALID FOR* Priority: E More... Chronic obstructive pulmonary disease (COPD) (H* Priority: D Ex-smoker [Z87.891] INVALID FOR*06/14/2018 Priority: B More... Chewing tobacco use [Z72.0] INVALID FOR* Priority: B Medicare annual wellness visit, subsequent [Z00*INVALID FOR* Priority: E More... PVC's (premature ventricular contractions) [I49*INVALID FOR* Priority: A Thoracic aortic aneurysm without rupture (HCC) *INVALID FOR* Priority: A More... Lumbar foraminal stenosis [M99.83] INVALID FOR* More... Herniation of intervertebral disc between L4 an*INVALID FOR* Acute deep vein thrombosis (DVT) of proximal ve*INVALID FOR* Priority: B More... 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 Epididymo-orchitis [N45.3] INVALID FOR* Priority: C More... Inferior vena caval thrombosis (HCC) [I82.220] INVALID FOR* Obesity, Class I, BMI 30-34.9 [E66.9] INVALID FOR* Bilateral leg weakness [R29.898] INVALID FOR* At high risk for falls [Z91.81] INVALID FOR* Encounter Status:Closed by ELIZABETH HOWARD MA on 06/29/18 PROTHROMBIN TIME W/INR Collected: 06/29/2018 Status: F Source: [place] 12:00 AM [facility] REPOSITORY TYPE CODE TESTS RESULT OUT OF RANGE REFERENCE UNITS LAB L300.4150 11.7-14.9 SECONDS High PROTIME 34.1 LAB L300.4200 Normal INR 3.3 Performed By: #### L300.3900 #### [facility] [address] [place], [address] CNOV Observed: 06/27/2018 Status: COMPLETED Source: [place] 1:20 PM [facility] REPOSITORY Office Visit (FAMPWS) JOVANI HOLMAN ([id number]) 1950 M Date Time Provider Department 06/27/18 1:20 PM BRIANA CULP) KEN During your visit today, we recorded the following information about you: Temperature Pulse Respiration Blood pressure 99.2 degrees 88/minute 12/minute 114/68 ZARIA CULP PA-C 06/27/2018 1:55 PM Addendum Transitional Care Management TCM Eligibility Documentation The following information was gathered during the initial Patient Outreach Encounter. Date of Outreach: 06/26/2018 06/26/2018 Outreach Attempt 1: Contact Made Contact Not Made Date of Discharge 06/24/2018 06/24/2018 Some recent data might be hidden Provider Documentation: Jovani Holman is a 67 year old male here today for a follow up to recent hospitalization. I have reviewed the patient's hospital course including diagnostic testing performed during this hospitalization, their discharge medications, and my assessment and plan with the patient and any family members present at today's visit. HPI: Patient was recently readmitted into hospital for an extensive DVT in abdomen and pelvis. Patient did see Dr. Valentine ([facility]) while in hospital. Has f/u with her scheduled 07/10/18 Currently on coumadin and being monitored by Dr. Linares. Also while at hospital. US of scrotum/test show L. Cystic mass. Was started on antibiotics and is still on keflex for this. Has f/u appointment scheduled 07/26. Left testicle is not as tender anymore. Still has 7 days of this. Concerns today: Groin still very painful. Can barely put weight on R leg. Has been applying heat. Currently taking oxycodone 5mg from prescription from 05/07/18. Was given norco from hospital but doesn't seem to help as much as the oxycodone. Denies chest pain, shortness of breath, No pain with Deep breaths. Still has significant swelling in R leg No other medication changes while at hospital. ROS See hpi PHYSICAL EXAMINATION BP 114/68 Pulse 88 Temp (Src) 99.2 (Tympanic) Resp 12 Last 3 Encounter Wt Readings: Date: Wt: 06/21/2018 94 kg (207 lb 3.2 oz) 06/21/2018 94.8 kg (209 lb) 06/10/2018 94.7 kg (208 lb 12.4 oz) General appearance: in wheel chair, well appearing, alert, in no acute distress and well-hydrated, well nourished, motor and sensory appear to be normal Lungs: clear to auscultation, no wheezing or rhonchi Heart: RRR without murmur, gallop, or rubs. No ectopy Abdomen: Normal abdominal exam, Abdomen soft, non-tender. Bowel sounds normal. No masses, organomegaly Extremities: + R leg edema from hip down. Tenderness in proximal leg. No tenderness in distal leg. DT pulses equal b/l ASSESSMENT/PLAN: 1. 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 Thoracic aortic aneurysm without rupture (HCC) - ICD9: 441.2, ICD10: I71.2 As above 3. Acute deep vein thrombosis (DVT) of proximal vein of both lower extremities (HCC) - ICD9: 453.41, ICD10: I82.4Y3 As above - OXYCODONE 5 MG CAPSULE 4. 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 F/u sooner as needed. Discussed possible red flags and when to seek medical attention. Zaria Culp PA-C June 27, 2018 1:17 PM PDMP website checked and validated. All prescriptions have been APPROPRIATELY filled. No suspicious activity was identified. 06/27/2018 by ZARIA CULP PA-C Referring Provider: SELF [200] Allergies As of Date: 06/27/2018 Noted Allergy Reaction BACTRIM (SULFAMETHOXAZOLE-TRIMETH*11/18/2008 14 - Other: See Comments Comments: sore throat LEVAQUIN (LEVOFLOXACIN) 06/10/2005 8 - GI Upset Date Reviewed: 06/27/2018 Reviewed by: Briana) Robbi - Fully Assessed Reason for Visit: Hospital F/U [57] Primary Visit Diagnosis:Inferior vena cava thromboembolism (HCC) [I82.220] Other Visit Diagnoses:Thoracic aortic aneurysm without rupture (HCC) [I71.2] Acute deep vein thrombosis (DVT) of proximal vein of both lower extremities (HCC) [I82.4Y3] Embolism of inferior vena cava (HCC) [I82.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 Earliest Fill Date: 06/27/18Disp: 20 capsuleRfl: 0 Prescriptions as of 06/27/2018 Sig: WARFARIN 2.5 MG TABLET Take 2 tablets by mouth daily* CEPHALEXIN 500 MG CAPSULE Take 1 capsule by mouth every* ATORVASTATIN 10 MG TABLET Take 2 tablets by mouth once * Patient taking differently: Take 10 mg by mouth daily at * DOXAZOSIN 8 MG TABLET Take 1 tablet by mouth every * HYDROCHLOROTHIAZIDE 25 MG TAB* Take 1 tablet by mouth once d* OMEPRAZOLE 20 MG CAPSULE,JULIET* Take 1 capsule by mouth daily* OXYCODONE 5 MG CAPSULE Take 1 capsule by mouth every* COMPOUNDED PRESCRIPTION Lift Chair to aid in getting * ASPIRIN 81 MG TABLET,DELAYED * Take 81 mg by mouth once effie* Problem List As Of Date 06/27/2018 Noted Resolved Tobacco use disorder [F17.200] 08/05/2016 NAFISA SMITH [L81.9] INVALID FOR* Priority: D Idiopathic urticaria [L50.1] INVALID FOR* Priority: D Lumbago [M54.5] INVALID FOR* Priority: M Benign prostatic hyperplasia [N40.0] INVALID FOR* Priority: E More... Bladder neck obstruction [N32.0] INVALID FOR* Priority: C Diverticulosis of colon (without mention of hem*INVALID FOR* Priority: C More... More... Essential hypertension [I10] INVALID FOR* Priority: C More... Tobacco abuse [Z72.0] INVALID FOR*08/05/2016 Priority: D More... Other pulmonary embolism and infarction [I26.99]INVALID FOR* Priority: B More... Mixed hyperlipidemia [E78.2] INVALID FOR* Priority: D More... More... Leg edema [R60.0] INVALID FOR* Priority: B More... 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 Screening for colon cancer [Z12.11] INVALID FOR* Mixed simple and mucopurulent chronic bronchiti*INVALID FOR* Priority: A Agent orange exposure [Z77.098] INVALID FOR* Priority: B Coronary artery disease due to lipid rich plaqu*INVALID FOR* Priority: A More... Well adult exam [Z00.00] INVALID FOR* Priority: E More... Chronic obstructive pulmonary disease (COPD) (H* Priority: D Ex-smoker [Z87.891] INVALID FOR*06/14/2018 Priority: B More... Chewing tobacco use [Z72.0] INVALID FOR* Priority: B Medicare annual wellness visit, subsequent [Z00*INVALID FOR* Priority: E More... PVC's (premature ventricular contractions) [I49*INVALID FOR* Priority: A Thoracic aortic aneurysm without rupture (HCC) *INVALID FOR* Priority: A More... Lumbar foraminal stenosis [M99.83] INVALID FOR* More... Herniation of intervertebral disc between L4 an*INVALID FOR* Acute deep vein thrombosis (DVT) of proximal ve*INVALID FOR* Priority: B More... 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 Epididymo-orchitis [N45.3] INVALID FOR* Priority: C More... Inferior vena caval thrombosis (HCC) [I82.220] INVALID FOR* Obesity, Class I, BMI 30-34.9 [E66.9] INVALID FOR* Bilateral leg weakness [R29.898] INVALID FOR* At high risk for falls [Z91.81] INVALID FOR* Prescriptions ordered this encounter Disp Refills Start End OXYCODONE 5 MG CAPSULE 20 c* 0 06/27/2018 07/02/2018 Class: Print RX Route: ORAL Sig: Take 1 capsule by mouth every 4 hours as needed for up to 5 days. Earliest Fill Date: 06/27/18 Medications Discontinued During This Encounter HYDROcodone-acetaminophen (NORCO) 5-* 15 t* 0 06/24/2018 06/27/2018 Class: Print RX Route: ORAL Sig: Take 1 tablet by mouth every 8 hours as needed for up to 5 days. Disc: Changing Therapy/Dosage Form oxyCODONE ir (OXYIR) 5 mg capsule 0 05/10/2018 06/27/2018 Class: Med Update Route: ORAL Sig: Take 1 capsule by mouth every 4 hours as needed for up to 7 days. Earliest Fill Date: 05/10/18 Disc: Reason for discontinue is not on file. Follow-up and Disposition History Recorded Encounter Status:Closed by ZARIA DAVIS on 06/27/18 PROGRESS Observed: 06/27/2018 Status: COMPLETED Source: [place] 1:17 PM [facility] REPOSITORY O ID: [id number] Author: Jeff Culp Service: (none) Author Type: Physician Translator Deaf Type: Progress Notes Filed: 06/27/2018 1:55 PM Note Text: Transitional Care Management TCM Eligibility Documentation The following information was gathered during the initial Patient Outreach Encounter. Date of Outreach: 06/26/2018 06/26/2018 Outreach Attempt 1: Contact Made Contact Not Made Date of Discharge 06/24/2018 06/24/2018 Some recent data might be hidden Provider Documentation: Jovani Holman is a 67 year old male here today for a follow up to recent hospitalization. I have reviewed the patient's hospital course including diagnostic testing performed during this hospitalization, their discharge medications, and my assessment and plan with the patient and any family members present at today's visit. HPI: Patient was recently readmitted into hospital for an extensive DVT in abdomen and pelvis. Patient did see Dr. Valentine ([facility]) while in hospital. Has f/u with her scheduled 07/10/18 Currently on coumadin and being monitored by Dr. Linares. Also while at hospital. US of scrotum/test show L. Cystic mass. Was started on antibiotics and is still on keflex for this. Has f/u appointment scheduled 07/26. Left testicle is not as tender anymore. Still has 7 days of this. Concerns today: Groin still very painful. Can barely put weight on R leg. Has been applying heat. Currently taking oxycodone 5mg from prescription from 05/07/18. Was given norco from hospital but doesn't seem to help as much as the oxycodone. Denies chest pain, shortness of breath, No pain with Deep breaths. Still has significant swelling in R leg No other medication changes while at hospital. ROS See hpi PHYSICAL EXAMINATION BP 114/68 Pulse 88 Temp (Src) 99.2 (Tympanic) Resp 12 Last 3 Encounter Wt Readings: Date: Wt: 06/21/2018 94 kg (207 lb 3.2 oz) 06/21/2018 94.8 kg (209 lb) 06/10/2018 94.7 kg (208 lb 12.4 oz) General appearance: in wheel chair, well appearing, alert, in no acute distress and well-hydrated, well nourished, motor and sensory appear to be normal Lungs: clear to auscultation, no wheezing or rhonchi Heart: RRR without murmur, gallop, or rubs. No ectopy Abdomen: Normal abdominal exam, Abdomen soft, non-tender. Bowel sounds normal. No masses, organomegaly Extremities: + R leg edema from hip down. Tenderness in proximal leg. No tenderness in distal leg. DT pulses equal b/l ASSESSMENT/PLAN: 1. 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 Thoracic aortic aneurysm without rupture (HCC) - ICD9: 441.2, ICD10: I71.2 As above 3. Acute deep vein thrombosis (DVT) of proximal vein of both lower extremities (HCC) - ICD9: 453.41, ICD10: I82.4Y3 As above - OXYCODONE 5 MG CAPSULE 4. 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 F/u sooner as needed. Discussed possible red flags and when to seek medical attention. Zaria Culp PA-C June 27, 2018 1:17 PM PDMP website checked and validated. All prescriptions have been APPROPRIATELY filled. No suspicious activity was identified. 06/27/2018 by ZARIA CULP PA-C PROTIME Collected: 06/27/2018 Status: F Source: [place] 12:49 PM [facility] REPOSITORY TYPE CODE TESTS RESULT OUT OF REFERENCE UNITS RANGE LAB PSEC 9.7-13.0 sec Test PT sent to [facility]. Result Comment: Account Credited HIDE LAB INR 0.9-1.3 Test sent to PT INR [facility]. Result Comment: Account Credited HIDE PROTHROMBIN TIME W/INR Collected: 06/27/2018 Status: F Source: [place] 12:00 AM [facility] REPOSITORY TYPE CODE TESTS RESULT OUT OF RANGE REFERENCE UNITS LAB L300.4150 11.7-14.9 SECONDS High PROTIME 34.7 LAB L300.4200 Normal INR 3.4 Performed By: #### L300.3900 #### [facility] [address] [place], [address] PROGRESS Observed: 06/26/2018 Status: COMPLETED Source: [place] 12:56 PM [facility] REPOSITORY HNO ID: [id number] Author: Honey Cochran Pharm-T Service: (none) Author Type: (none) Type: Progress Notes Filed: 06/26/2018 1:01 PM Note Text: TRANSITION CARE MANAGEMENT (TCM) INITIAL CONTACT Provider Action/FYI: ? Patient was contacted for postdischarge TCM Medication History and has declined pharmacy TCM services. Initial contact with patient post discharge, spoke to patient. Patient identified by name and . Summary: -Pt discharged from [facility] on 06/24/18. -Follow up appointment on 06/27/18(hospital f/u)07/14/18(PCP). -Medication review done No. -Admitted for Groin pain Hoeny Cochran Pharm-T June 26, 2018 12:56 PM PROTIME Collected: 06/26/2018 Status: F Source: [place] 12:00 PM [facility] REPOSITORY TYPE CODE TESTS RESULT OUT OF REFERENCE UNITS RANGE LAB PSEC 9.7-13.0 sec Test PT sent to [facility]. Result Comment: Account Credited HIDE LAB INR 0.9-1.3 Test sent to PT INR [facility]. Result Comment: Account Credited HIDE PROTHROMBIN TIME W/INR Collected: 06/26/2018 Status: F Source: [place] 11:42 AM [facility] REPOSITORY TYPE CODE TESTS RESULT OUT OF RANGE REFERENCE UNITS LAB L300.4150 11.7-14.9 SECONDS High PROTIME 32.3 LAB L300.4200 Normal INR 3.1 Performed By: #### L300.3900 #### [facility] [address] [place], [address] [facility] Observed: 06/26/2018 Status: COMPLETED Source: [place] 12:00 AM [facility] REPOSITORY Patient Outreach (PHRXRF) JOVANI HOLMAN ([id number]) 1950 Date Time Provider Department 06/26/18 HERMINIO LINARES PHRXRF During your visit today, we recorded the following information about you: Honey Cochran Pharm-T 06/26/2018 1:01 PM Signed TRANSITION CARE MANAGEMENT (TCM) INITIAL CONTACT Provider Action/FYI: ? Patient was contacted for postdischarge TCM Medication History and has declined pharmacy TCM services. Initial contact with patient post discharge, spoke to patient. Patient identified by name and . Summary: -Pt discharged from [facility] on 06/24/18. -Follow up appointment on 06/27/18(hospital f/u)07/14/18(PCP). -Medication review done No. -Admitted for Groin pain Honey Lynn Dimas Pharm-T June 26, 2018 12:56 PM Allergies As of Date: 06/26/2018 Noted Allergy Reaction BACTRIM (SULFAMETHOXAZOLE-TRIMETH*11/18/2008 14 - Other: See Comments Comments: sore throat LEVAQUIN (LEVOFLOXACIN) 06/10/2005 8 - GI Upset Date Reviewed: 06/24/2018 Reviewed by: Nikkie SilvaRn) SHIMA Estrella - Fully Assessed Reason for Visit: Transition Of Care [4074] Cmt: Pharmacy hospital follow up 06/24/18 Prescriptions as of 06/26/2018 Sig: WARFARIN 2.5 MG TABLET Take 2 tablets by mouth daily* CEPHALEXIN 500 MG CAPSULE Take 1 capsule by mouth every* HYDROCODONE 5 MG-ACETAMINOPHE* Take 1 tablet by mouth every * ATORVASTATIN 10 MG TABLET Take 2 tablets by mouth once * Patient taking differently: Take 10 mg by mouth daily at * ASPIRIN 81 MG TABLET,DELAYED * Take 81 mg by mouth once effie* DOXAZOSIN 8 MG TABLET Take 1 tablet by mouth every * HYDROCHLOROTHIAZIDE 25 MG TAB* Take 1 tablet by mouth once d* OMEPRAZOLE 20 MG CAPSULE,JULIET* Take 1 capsule by mouth daily* Problem List As Of Date 06/26/2018 Noted Resolved Tobacco use disorder [F17.200] 08/05/2016 SOLAR LENGINES [L81.9] INVALID FOR* Priority: D Idiopathic urticaria [L50.1] INVALID FOR* Priority: D Lumbago [M54.5] INVALID FOR* Priority: M Benign prostatic hyperplasia [N40.0] INVALID FOR* Priority: E More... Bladder neck obstruction [N32.0] INVALID FOR* Priority: C Diverticulosis of colon (without mention of hem*INVALID FOR* Priority: C More... More... Essential hypertension [I10] INVALID FOR* Priority: C More... Tobacco abuse [Z72.0] INVALID FOR*08/05/2016 Priority: D More... Other pulmonary embolism and infarction [I26.99]INVALID FOR* Priority: B More... Mixed hyperlipidemia [E78.2] INVALID FOR* Priority: D More... More... Leg edema [R60.0] INVALID FOR* Priority: B More... 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 Screening for colon cancer [Z12.11] INVALID FOR* Mixed simple and mucopurulent chronic bronchiti*INVALID FOR* Priority: A Agent orange exposure [Z77.098] INVALID FOR* Priority: B Coronary artery disease due to lipid rich plaqu*INVALID FOR* Priority: A More... Well adult exam [Z00.00] INVALID FOR* Priority: E More... Chronic obstructive pulmonary disease (COPD) (H* Priority: D Ex-smoker [Z87.891] INVALID FOR*06/14/2018 Priority: B More... Chewing tobacco use [Z72.0] INVALID FOR* Priority: B Medicare annual wellness visit, subsequent [Z00*INVALID FOR* Priority: E More... PVC's (premature ventricular contractions) [I49*INVALID FOR* Priority: A Thoracic aortic aneurysm without rupture (HCC) *INVALID FOR* Priority: A More... Lumbar foraminal stenosis [M99.83] INVALID FOR* More... Herniation of intervertebral disc between L4 an*INVALID FOR* Acute deep vein thrombosis (DVT) of proximal ve*INVALID FOR* Priority: B More... 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 Epididymo-orchitis [N45.3] INVALID FOR* Priority: C More... Inferior vena caval thrombosis (HCC) [I82.220] INVALID FOR* Obesity, Class I, BMI 30-34.9 [E66.9] INVALID FOR* Follow-up and Disposition History Recorded Encounter Status:Closed by HONEY MONTGOMERY on 06/26/18 THERAPY NT Observed: 06/24/2018 Status: COMPLETED Source: [place] 12:55 PM [facility] REPOSIT[facility] HNO ID: [id number] Author: Anu Cooper/Kirt Marques Service: Occupational Therapy Author Type: Occupational Therapist Type: Therapy (PT/OT/Speech/Resp) Filed: 06/24/2018 1:03 PM Note Text: Occupational Therapy Evaluation SERVICE DATE: 06/24/2018 SERVICE TIME: 1030 to 1050 ROOM: [place] [address] Recommended Discharge Disposition: Home Recommended Discharge Disposition Comments: Pt functioning below baseline as result of pain; Mod I following skilled services. No further OT intervention needed. Anticipated Discharge Needs: Supervision at Home;Physical Assist at Home Physical Assist at Home for: Cleaning;Laundry;Shopping;Transportation Supervision at Home due to: Other: See Comment (Wet shower transfer) OT Recommendations to Nursing: ADL?s in chair OT 6 Clicks Score: 21 Precautions/Activity Restrictions: Fall Risk ASSESSMENT: Patient presents with decreased ability to transfer and perform self care tasks as a result of pain related to DVT. Requires skilled OT to educate and address deficits in order to return to OF. Patient Disposition at Start of Session: Supine in Bed Patient Disposition at End of Session: OOB in Chair Tolerated Full Session Occupational Therapy Problem List: Impaired Self Care;Decreased Activity Tolerance;Decreased Range Of Motion;Functional Mobility Impairment;Balance Impaired;Pain;Safety Deficits Patient /Caregiver Goals: Care For Self Goals for Plan of Care: Lower Body Bathing with: Modified Independent (Met) Lower Body Dressing with: Modified Independent (;met) Progress Toward Goals: Progressing as expected Rehab Potential: Good PLAN: Treatment Frequency (times per week): 1 Current admission Treatment Interventions: Education;Self Care / Home Management Plan of Care developed with: Patient TREATMENT INTERVENTIONS: Therapy Diagnosis: Reduced mobility-other;Decreased activities of daily living (ADL);General symptoms and signs-other Interventions Provided: Evaluation;Self [facility] Management (20859) $ Evaluation-Low (02043) Billed Units: 1 unit Self [facility] Management ([id number]) Treatment Minutes: 10 1 unit Skilled Intervention(s): Provided instruction, cuing and facilitation for lower body dressing ; educated pt on role of OT and POC Total Timed Code Treatment Minutes: 10 Total Treatment Time (minutes): 20 FUNCTIONAL G CODE: OT 6 Clicks Score: 21 (06/24/18 1030) Self Care Current Status (G8987): CJ (06/24/18 1030) Self Care Goal Status (G8988): CI (06/24/18 1030) Self Care Discharge Status (G8989): CI (06/24/18 1030) Based on clinical assessment and the score on the 6 Clicks Functional Assessment Tool, the G code and corresponding severity modifiers are documented above. Physician signature certifies treatment plan of care established above for the period of 06/24/2018 through 07/08/2018. SUBJECTIVE: Current Hospital Course: Chart reviewed; 67 yo old male with history of DVT presents to ER with DVT Reason for Occupational Therapy Consult: change in ability to perform self care Relevant Past Medical History: DVT, BPH, COPD, CAD, Embolism of IVC, GERD, HTN, Hyperlipidemia, and pulmonary fibrosis Patient Report: I've had these before but this pain is the worst ever Home Environment Patient Lives With: Spouse Assistance Available: 24 Hour Entry To Home: Stairs Number Of Stairs Into Home: 1 Number Of Stairs To Bed/Bath: 0 Tub/Shower Type: combo Laundry: main Equipment Owned: Standard Walker Prior Functional Level: Within Functional Limits Prior Functional Level Comments: Independent OBJECTIVE: Responsiveness: Alert;Awake Follows Commands: 3-step Commands CURRENT FUNCTIONAL STATUS: Current Activities of Daily Living Assist Level Feeding Independent Grooming Set Up Bathing Upper Body Set Up Bathing Lower Body Minimal Assistance (Pain effecting function) Dressing Upper Body Set Up Dressing Lower Body Minimal Assistance Toileting Minimal Assistance Instrumental Activities of Daily Living Assist Level Meal/Beverage Prep Light Cleaning Laundry Medication Management with Strategies Functional Mobility Assist Level Rolling Supervision Supine to Sit Supervision Sit to Supine Supervision Scooting Supervision Sit to Stand Supervision Stand to Sit Supervision Bed to Chair Supervision Wheeled Walker Toilet/Commode Functional Mobility Supervision Wheeled Walker Balance: Static Sitting;Dynamic Sitting;Static Standing;Dynamic Standing Static Sitting Balance: Independent Dynamic Sitting Balance: Independent Static Standing Balance: Supervision Dynamic Standing Balance: Supervision Activity Tolerance: Sitting Activity;Standing Activity Sitting Activity: EOB Sitting Activity Tolerance (in minutes): 10 Standing Activity: Transfer Standing Activity Tolerance (in minutes): 2 Please see discipline specific clinical documentation flowsheet for complete details for this therapy evaluation/treatment. SIGNATURE: Myshl Shelli, OTR/L PATIENT NAME: Jovani Holman DATE: June 24, 2018 MRN: [id number] TIME: 12:59 PM CNDS Observed: 06/24/2018 Status: COMPLETED Source: [place] 11:49 AM [facility] OTHER CAMPUS REPOSITORY [facility] ID: [id number] Author: Arsenio Keith Service: Hospital Medicine Author Type: Physician Type: Discharge Summaries Filed: 06/24/2018 11:56 AM Note Text: DISCHARGE SUMMARY PATIENT NAME: Jovani Holman ADMISSION DATE: 06/21/2018 MRN: [id number] DISCHARGE DATE: 06/24/2018 ATTENDING PHYSICIAN: Arsenio Keith Code Status: Not on file Highest Readmission Risk Score: 22 The 30 day readmissions risk score is derived from an internally validated risk model which evaluates patient level characteristics, utilization history, medication orders and lab results up until the day of discharge. Patients with a score of 40 or above are considered highest risk for readmission. Specific patient level drivers will be listed at the bottom of the summary. REASON FOR HOSPITALIZATION: Groin pain DIAGNOSIS: Active Problems: Acute deep vein thrombosis (DVT) of proximal vein of both lower extremities (HCC) Epididymo-orchitis Mixed hyperlipidemia GERD (gastroesophageal reflux disease) Chronic obstructive pulmonary disease (COPD) (HCC) Inferior vena caval thrombosis (HCC) Obesity, Class I, BMI 30-34.9 Resolved Problems: * No resolved hospital problems. 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 Patient went to see his PCP on 2 days and found to have sub-therapeutic INR. He was seen by vascular service who did not recommended any surgical intervention. Patient was bridged with Lovenox to coumadin. Patient also had USG of scrotum area showed ?Large cystic area and urology has been consulted - recommended antibiotics for 2-3 weeks for epididymo-orchitis. INR at the time of discharge was 2.3 (with a daily dosing of 5 mg 1.5 --> 1.9 --> 2.3) His daily maintenance requirement is roughly 4-5 mg per day Transitions of Care Critical Issues: LAB MONITORING NEEDED: INR SPECIALIST FOLLOW-UP: Urology for ?cyst/orchitis MAYER MEDICATION CHANGES: Increased coumadin dose to 5 mg daily LABS AND PROCEDURES PENDING AT DISCHARGE: No pending results. CONSULTING TEAMS DURING HOSPITALIZATION: Surgery : Vascular and Urology PATIENT CONDITION AT DISCHARGE: Stable DISCHARGE DISPOSITION: Home/Self Care BP 109/71 Pulse 91 Temp 37 ?C (98.6 ?F) (Oral) Resp 18 Ht 175.3 cm (5' 9) Wt 94 kg (207 lb 3.2 oz) SpO2 94% BMI 30.60 kg/m? GENERAL: GENERAL APPEARANCE NCCC: well appearing, alert and in no acute distress HEART: HEART CCF: regular rate and rhythm, no murmer, gallop or rub, normal, S1, S2, no lifts, heaves, or thrills, PMI not displaced LUNGS: LUNGS CCF: clear to percussion and auscultation and no rales ABDOMEN: ABDOMEN: Soft, nontender, bowel sounds normal, no palpable organomegaly, no bruits. EXTREMITY: EXTREMITY EXAM: Unilateral asymmetical edema of RLE; right > left INFORMATION PROVIDED TO PATIENT: (To pull info documented from the DC Instruct Orderset Complete O/S First): Adviced pt to not stop coumadin. If INR is high he needs a lower dose unless INR >5 DIET: Resume pre-hospital diet ACTIVITY: Resume pre-hospital activity WOUND/SURGICAL SITE CARE: None ALLERGIES Allergen Reactions - Bactrim [Sulfametho* Other: See Comments sore throat - Levaquin [Levofloxa* GI Upset DISCHARGE MEDICATION: Current Discharge Medication List START taking these medications cephALEXin (KEFLEX) 500 mg Take 500 mg by mouth every 8 hours. Qty: 30 capsule Refills: 0 HYDROcodone-acetaminophen (NORCO) 1 tablet Take 1 tablet by mouth every 8 hours as needed. Earliest Fill Date: 06/24/18 Qty: 15 tablet Refills: 0 Associated Diagnoses:IVC thrombosis (HCC); Right groin pain CONTINUE these medications which have CHANGED warfarin (COUMADIN) 5 mg Take 5 mg by mouth daily as directed. Take daily dose as instructed by physician. Qty: 30 tablet Refills: 5 Associated Diagnoses:Chronic anticoagulation CONTINUE these medications which have NOT CHANGED atorvastatin (LIPITOR) 20 mg Take 20 mg by mouth once daily. aspirin, enteric coated (ASPIRIN, ENTERIC COATED) 81 mg Take 81 mg by mouth once daily. doxazosin (CARDURA) 8 mg Take 8 mg by mouth every evening. Qty: 30 tablet Refills: 11 hydroCHLOROthiazide (HYDRODIURIL, ESIDRIX) 25 mg Take 25 mg by mouth once daily. Qty: 30 tablet Refills: 11 Associated Diagnoses:Essential hypertension, benign omeprazole (PriLOSEC) 20 mg Take 20 mg by mouth daily before breakfast. 1/2 hr before meal. Qty: 30 capsule Refills: 11 FUTURE APPOINTMENTS: Follow Up with PCP: Herminio Linares MD Follow Up with Urology The patient's risk for 30-day readmission is determined using the following contributing factors: Pt variables contributing to increased readmission risk: 18 Most Recent BUN Result 14 Active Medication Orders 9.3 First Resulted Calcium During Admission 2 Number of Previous ED Visits (6 mos.) 1 Previous ED Visit (6 mos.)? 1 Insurance - Medicare 1 Discharge Disposition - Home 1 History of COPD 1 Active Anticoagulant 1 Number of Hospitalizations (12 mos.) TIME OF CARE: Discharge Management: I personally spent greater than 30 minutes involved in the discharge management of this patient. SIGNATURE: Arsenio Keith MD PAGER/CONTACT #: [phone] DATE: June 24, 2018 TIME: 11:49 AM CASE MANAGEM Observed: 06/24/2018 Status: COMPLETED Source: [place] 11:28 AM [facility] OTHER CAMPUS REPOSITORY O ID: [id number] Author: Liz Rodriguez (Sw) Service: Case Management Author Type: Charge Lpn Type: Care Mgt Progress Note Filed: 06/24/2018 11:30 AM Note Text: CARE MANAGEMENT DISCHARGE NOTE SERVICE DATE: 06/24/2018 SERVICE TIME: 11:29 AM LOS: 1 day Admission Date: 06/21/2018 DISCHARGE ARRANGEMENT (list agency and phone number) Home Provider: n/a Phone: n/a CAREGIVER ASSESSMENT: Caregiver is ready, willing and able to meet the patient's needs as recommended by the inter-professional team? No Caregiver Needed Patient's transition needs and plan for meeting these needs: patient meets own needs Does the patient have an acute stroke diagnosis, or has the patient had a stroke during this admission? No HANDOFF COMMUNICATION: Primary Care Physician: Dr. Herminio Linares TRANSPORTATION ARRANGEMENTS: Car Family to transport ADDITIONAL CONTACT RESOURCES: n/a Discharge today to home. Sent summary of care. Per patient request, [facility] tasked for a PCP follow up appointment. to transport. SIGNATURE: CHRISTEN Dos Santos PATIENT NAME: Jovani Holman DATE: June 24, 2018 MRN: [id number] TIME: 11:28 AM PAGER/CONTACT #: [phone] CASE MANAGEM Observed: 06/24/2018 Status: COMPLETED Source: [place] 11:25 AM [facility] REPOSITORY HNO ID: [id number] Author: Liz Rodriguez (Sw) Service: Case Management Author Type: Charge Lpn Type: Care Mgt Progress Note Filed: 06/24/2018 11:26 AM Note Text: CARE MANAGEMENT PROGRESS NOTE SERVICE DATE: 06/24/2018 SERVICE TIME: 11:25 AM LOS: 1 day Needs Prior to Discharge: To Be Determined CM met with patient bedside. Patient refusing HHC and would like to discharge home. [facility] tasked. SIGNATURE: CHRISTEN Dos Santos PATIENT NAME: Jovani Holman DATE: June 24, 2018 MRN: [id number] TIME: 11:25 AM PAGER/CONTACT #: [phone] THERAPY NT Observed: 06/24/2018 Status: COMPLETED Source: [place] 10:16 AM [facility] REPOSITORY [facility]NO ID: [id number] Author: Segun SilvaPtMickey Araujo Service: Hospital Medicine Author Type: Physical Therapist Type: Therapy (PT/OT/Speech/Resp) Filed: 06/24/2018 10:26 AM Note Text: Physical Therapy Evaluation SERVICE DATE: 06/24/2018 SERVICE TIME: 0945 to 1012 ROOM: [place] [address] Recommended Discharge Disposition: Home PT Recommended Discharge Disposition Comments: Patient is functioning near baseline levels and can benefit from continued skilled PT services at home to improve strength, safety, activity tolerance, and general functional mobility to return to [facility] Anticipated Discharge Needs: Physical Assist at Home;Supervision at Home;Equipment (wheeled walker/ wheels for SW at home) Physical Assist at Home for: Cleaning;Laundry;Meals;Shopping;Transportation Supervision at Home due to: Other: See Comment (initially to ensure safety) Recommended Discharge Equipment: Patient to Obtain (wheeled walker or wheels for his standard walker at home) PT Recommendations to Nursing: Ambulate with device;To bathroom;Transfer to/from chair;OOB for Meals;Sit at edge of bed;With assist of 1 person Device: Wheeled Walker PT 6 Clicks Score: 23 Precautions/Activity Restrictions: Fall Risk ASSESSMENT : Patient presents with right groin pain, diagnosed with IVC filter thrombosis. Requires skilled PT to address deficits with strength, activity tolerance, safety, and overall functional mobility. Patient is AANDO x3 and agreeable to PT evaluation. SBA for bed mobility, transfers, and ambulation with FWW up to 20 ft, limited by 8/10 pain in right groin. Discussed patient obtaining wheels for his standard walker at home to assist with ambulation. Discussed Home PT with patient and purpose of services. Patient Disposition at Start of Session: Supine in Bed Patient Disposition at End of Session: Supine in Bed;Call Benavieds in Reach Tolerance Limited By Pain Physical Therapy Problem List: Pain;Safety Deficits;Decreased Activity Tolerance;Decreased Strength;Functional Mobility Impairment Patient /Caregiver Goals: Go Home;Walk Goals for Plan of Care: Able to perform HEP with: Independent Rolling with: Independent Transfer supine to/from sit with: Independent Transfer sit to/from stand with: Independent Ambulate with: Supervision Distance: 150-200 ft for home-going distances Device: Wheeled Walker Ambulate up and down steps with: Contact Guard Assistance Number of steps: 1 Device: Rail Transfer: Perform stand pivot transfer to/from EOB and bedside chair with SBA Rehab Potential: Good PLAN: Treatment Frequency (times per week): 3 Current admission Treatment Interventions: Education;Joint Mobility;Strengthening;Functional Mobility Training;Balance Training;Neuromuscular Re-education;Pain Management Plan of Care developed with: Patient TREATMENT INTERVENTIONS: Therapy Diagnosis: Reduced mobility-other;Muscle Weakness (generalized);General symptoms and signs-other;Difficulty walking-musculoskeletal Interventions Provided: Evaluation;Therapeutic Activity (85242);Gait Training (12872) $ Evaluation-Moderate (66188) Billed Units: 1 unit Therapeutic Activity (00466) Treatment Minutes: 10 1 unit Skilled Intervention(s): Instructed patient in supine to and from sit pushing with upper extremities to sit up Instruction in sit to and from stand technique with proper hand placement and body positioning at edge of bed/chair Education with role of PT, importance of getting OOB to reduce effects of prolonged bed rest, POC, and D/C plan. Gait Training (24660) Treatment Minutes: 7 0 units Skilled Intervention(s): Instruction in sit to stand technique with proper hand placement and body positioning at edge of bed/chair Instruction in stand to sit technique with LE's touching chair/bed and reaching back for surface Instruction in sequencing, gait pattern Instruction in correction of gait deviations Instruction in use of equipment, cues for sequence and pattern Total Timed Code Treatment Minutes: 17 Total Treatment Time (minutes): 27 FUNCTIONAL G CODE: PT 6 Clicks Score: 23 (06/24/18944) $ Mobility: Walking and Moving Around Current Status (G8978): CI (06/24/18944) $ Mobility: Walking and Moving Around Goal Status (G8979): CH (06/24/18944) Based on clinical assessment and the score on the 6 Clicks Functional Assessment Tool, the G code and corresponding severity modifiers are documented above. Physician signature certifies treatment plan of care established above for the period of 06/24/2018 through 07/08/2018. SUBJECTIVE: Current Hospital Course: Chart reviewed; 67 year old male with past medical hx of DVT, BPH, COPD, CAD, Embolism of IVC, GERD, HTN, Hyperlipidemia, and pulmonary fibrosis presents with worsening right groin pain. Patient was recently admitted on June 10 for extensive venous thrombosis in the inferior vein edema. Reason for Physical Therapy Consult : safety assessment Relevant Past Medical History: DVT, BPH, COPD, CAD, Embolism of IVC, GERD, HTN, Hyperlipidemia, and pulmonary fibrosis Patient Report: patient cleared for PT evaluation by nurse. I don't have any pain while laying here I've been getting up to go to the bathroom Home Environment Patient Lives With: Spouse Assistance Available: 24 Hour (from ) Entry To Home: Stairs Number Of Stairs Into Home: 1 Number Of Stairs To Bed/Bath: 0 (ranch style house) Tub/Shower Type: tub Laundry: main floor Equipment Owned: Standard Walker Prior Functional Level: Within Functional Limits Prior Functional Level Comments: Independent with PLOF, Ambulated with no AD, retired OBJECTIVE: CURRENT FUNCTIONAL STATUS: Current Functional Mobility Assist Level Additional Information Rolling Supine to Sit Stand By Assistance Sit to Supine Stand By Assistance Scooting Stand By Assistance Sit to Stand Stand By Assistance Stand to Sit Stand By Assistance Bed to Chair Toilet/Commode Gait Stand By Assistance Gait Device: Wheeled Walker Gait Distance (feet): 20 Stairs Curb Step Car Transfer Gait Deviations Right Lower Extremity: Weight bearing decreased;Stance time decreased;Heel strike during initial stance decreased;Push- off during terminal stance decreased;Foot clearance decreased General Gait Deviations: Antalgic gait pattern;Lula decreased;Step length decreased;Flexed trunk posture;Difficulty changing direction/turning;Non-functional gait speed Balance: Static Sitting;Dynamic Sitting;Static Standing;Dynamic Standing Static Sitting Balance: Independent Dynamic Sitting Balance: Independent Static Standing Balance: Stand By Assistance Dynamic Standing Balance: Stand By Assistance Please see discipline specific clinical documentation flowsheet for complete details for this therapy evaluation/treatment. SIGNATURE: Segun Araujo PT PATIENT NAME: Jovani Holman DATE: June 24, 2018 MRN: [id number] TIME: 10:16 AM PROTIME Collected: 06/24/2018 Status: F Source: [place] 4:21 AM [facility] OTHER [place] REPOSITORY TYPE CODE TESTS RESULT OUT OF RANGE REFERENCE UNITS LAB PSEC 9.7-13.0 sec High PT Sec 22.7 LAB INR 0.9-1.3 High PT INR 2.3 Result Comment: Vitamin K Antagonist (VKA) Therapeutic Range: INR 2 to 3 (Target INR of 2.5) Note: For patients treated with VKA drugs, such as warfarin, the [place] [employer] 2012 Guideline recommends a therapeutic INR range of 2 to 3 (target INR of 2.5). This recommendation includes high-risk patients with antiphospholipid syndrome with previous arterial or venous thromboembolism, current-generation mechanical or bioprosthetic aortic heart valve replacement. Note: Patients with mechanical aortic valve replacement and additional risk factors for thromboembolic events (atrial fibrillation, previous thromboembolism, LV dysfunction, hypercoagulable conditions) or an older generation mechanical AVR (i.e., ball in-Cage) or any mechanical MVR should have a INR therapeutic range of 2.5 to 3.5 (target INR of 3). Nic CARRINGTON, et al. Chest 2012, 141:7S-47S Andrzej RA, et al. [facility] 2017, 70: 252-289 Performed By: #### PT #### [facility] [address] [place] [address] CONSULT PROG Observed: 06/23/2018 Status: COMPLETED Source: [place] 5:02 PM [facility] OTHER [place] REPOSITORY HNO ID: [id number] Author: Vinicio Rooney V Service: Urology Author Type: Physician Type: Consult Progress Note Filed: 06/23/2018 5:04 PM Note Text: pt still cites orchalgia left greater than right, though no significant swelling present. would keep on oral antibiotics for 2 to 3 weeks post discharge with urology followup. . Reconsult if necessary. Signing off. PROGRESS Observed: 06/23/2018 Status: COMPLETED Source: [place] 1:28 PM CLINIC OTHER CAMPUS REPOSITORY HNO ID: [id number] Author: Arsenio Keith Service: Hospital Medicine Author Type: Physician Type: Progress Notes Filed: 06/23/2018 1:28 PM Note Text: SERVICE DATE: 06/23/2018 SERVICE TIME: 1:28 PM HOSPITAL MEDICINE PROGRESS NOTE NIGHT AND WEEKEND COVERAGE: Nights: Please contact pager [phone]. 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 Patient was admitted in last admission with similar complaints. While in hospital last time he was on heparin gtt for bridging along with coumadin and was discharged on Coumadin. Patient went to see his PCP on 2 days and found to have sub-therapeutic INR. Patient started to have right groin pain Tuesday night which continues to worsen so he decided to come to ED. No other complaints. While in ED he was found to have sub-therapeutic INR. He was seen by vascular service. Patient has been given Lovenox and being admitted for pain control Patient also had USG of scrotum area showed Large cystic area and urology has been consulted as well. Patient seen and examined. Pain better now. No other complaints. SUBJECTIVE Interval Events: No Change Continues to have groin pain. Scrotal pain has improved. Bridging coumadin with lovenox. INR 1.9 OBJECTIVE BP 121/76 Pulse 91 Temp (Src) 98.2 (Oral) Resp 18 Ht 5' 9 (1.75m) Wt 207 lb 3.2 oz (94.0kg) SpO2 93% BMI 30.58 kg/(m2). Physical Exam Performed: GENERAL: GENERAL APPEARANCE NCCC: well appearing, alert and in no acute distress HEART: HEART CCF: regular rate and rhythm, no murmer, gallop or rub, normal, S1, S2, no lifts, heaves, or thrills, PMI not displaced LUNGS: LUNGS CCF: clear to percussion and auscultation and no rales ABDOMEN: ABDOMEN: Soft, nontender, bowel sounds normal, no palpable organomegaly, no bruits. EXTREMITY: EXTREMITY EXAM: Unilateral asymmetical edema of RLE; right > left Lines, Drains, and Airways Line Peripheral 06/21/18 1210 Left Antecubital 20 Gauge 2 days Reviewed lines, drains, AND airways. Need to be continued PIV Medications: Reviewed Diagnostic tests reviewed: Most recent imaging Most recent labs CARE COORDINATION: No Patient Care Coordination Note on file. ASSESSMENT AND PLAN Assessment AND Plan, all Hosp Problems Active Hospital Problems as of 06/23/2018 Noted - Resolved Hospital * (Principal)Inferior vena cava thromboembolism (HCC) 06/10/2018 - Present Current Assessment AND Plan Had CT AP showed similar as before. Readmission for INR sub therapeutic. Currently on lovenox bridging. During last admission his INR was 3 on 06/16 after 2.5 mg dose of coumadin (daily doses during that admission 5->5->7.5->2.5) and he did not take coumadin over that weekend (for 3-4 days) Coumadin 5 mg daily. Check INR tomorrow. Can be discharged tomorrow (even on lovenox if sub-therapeutic) Acute deep vein thrombosis (DVT) of proximal vein of both lower extremities (HCC) 05/12/2018 - Present Current Assessment AND Plan As above Epididymo-orchitis 06/21/2018 - Present Current Assessment AND Plan USG of scrotum showed large cystic mass on left side. Urology recommended PO Abx for 2 weeks. Mixed hyperlipidemia 09/14/2010 - Present GERD (gastroesophageal reflux disease) 11/23/2013 - Present Chronic obstructive pulmonary disease (COPD) (HCC) Unknown - Present Medication and Non-Pharmacologic VTE Prophylaxis/Anticoagulants Anticoagulant AND Antiplatelet Medications Start Dose Route Frequency Ordered Stop 06/22/18 1700 warfarin 5 mg tab(s) (COUMADIN) 5 mg ORAL DAILY - WARFARIN 06/22/18 0915 -- 06/22/18 0400 enoxaparin 90 mg injection (LOVENOX) 1 mg/kg/dose SUBCUTANEOUS EVERY 12 HOURS 06/21/18 1745 -- 06/22/18 1815 graduated compression stockings ([place]) 06/21/18 1745 vte non-pharmacologic prophylaxis - none indicated ([place]) 06/21/18 1745 vte current anticoag therapy ([place]) 06/21/18 1745 activity - mobilize patient ([place]) VTE Prophylaxis: VTE prophylaxis appropriate Plan of care discussed with: Patient and RN SIGNATURE: Arsenio Keith MD PATIENT NAME: Jovani Holman DATE: June 23, 2018 MRN: [id number] TIME: 1:28 PM PAGER/CONTACT #: [phone] THERAPY NT Observed: 06/23/2018 Status: COMPLETED Source: [place] 11:42 AM CLINIC OTHER CAMPUS REPOSITORY HNO ID: [id number] Author: TIERRA SINHA (OT/L) Service: Occupational Therapy Author Type: Occupational Therapist Type: Therapy (PT/OT/Speech/Resp) Filed: 06/23/2018 11:46 AM Note Text: OCCUPATIONAL THERAPY MISSED VISIT SERVICE DATE: 06/23/2018 SERVICE TIME: 1130 to 1131 ROOM: [place] [address] Attempted Evaluation. Patient not seen due to Other: See Comment. Per PT and RN, patient very concerned with paying hospital bill for therapy services, currently with elevated groin pain, which limits mobility and tolerance to therapy/ functional activity. Per RN, pt has been up within room doing own ADLs, such as brushing his teeth. Will attempt OT evaluation as able and as pt appropriate/agreeable. SIGNATURE: TIERRA SINHA OT/Gerald PATIENT NAME: Jovani Holman DATE: June 23, 2018 MRN: [id number] TIME: 11:43 AM THERAPY NT Observed: 06/23/2018 Status: COMPLETED Source: [place] 8:45 AM [facility] OTHER CAMPUS REPOSITORY HNO ID: [id number] Author: Lindsay Sandy Service: Physical Therapy Author Type: Physical Therapist Type: Therapy (PT/OT/Speech/Resp) Filed: 06/23/2018 1:48 PM Note Text: PHYSICAL THERAPY MISSED VISIT SERVICE DATE: 06/23/2018 SERVICE TIME: 0845 to 0902 ROOM: [place] [address] Attempted Evaluation. Patient not seen due to Declined. Patient continues to decline PT and OT evaluations as patient concerned regarding potentially getting OP PT charge. Also patient not agreeable due to groin pain. Patient getting up to bathroom per patient and nursing although patient reports mobility with pain. Discussed with patient and agreed to home PT eval. Will re approach as schedule permits and as patient is appropriate. SIGNATURE: Lindsay Sandy PT PATIENT NAME: Jovani Holman DATE: June 23, 2018 MRN: [id number] TIME: 1:44 PM PROTIME Collected: 06/23/2018 Status: F Source: [place] 4:09 AM [facility] OTHER CAMPUS REPOSITORY TYPE CODE TESTS RESULT OUT OF RANGE REFERENCE UNITS LAB PSEC 9.7-13.0 sec High PT Sec 18.2 LAB INR 0.9-1.3 High PT INR 1.9 Result Comment: Vitamin K Antagonist (VKA) Therapeutic Range: INR 2 to 3 (Target INR of 2.5) Note: For patients treated with VKA drugs, such as warfarin, the [employer] [place] [employer] 2012 Guideline recommends a therapeutic INR range of 2 to 3 (target INR of 2.5). This recommendation includes high-risk patients with antiphospholipid syndrome with previous arterial or venous thromboembolism, current-generation mechanical or bioprosthetic aortic heart valve replacement. Note: Patients with mechanical aortic valve replacement and additional risk factors for thromboembolic events (atrial fibrillation, previous thromboembolism, LV dysfunction, hypercoagulable conditions) or an older generation mechanical AVR (i.e., ball in-Cage) or any mechanical MVR should have a INR therapeutic range of 2.5 to 3.5 (target INR of 3). Nic GH, et al. Chest 2012, 141:7S-47S Andrzej RA, et al. 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 Recommend mehdi hose compression for comfort. No acute intervention SUBJECTIVE INTERVAL HPI: Pain present. Improved at rest however still having groin pain with ambulation MEDICATIONS: Current hospital medications: warfarin 5 mg tab(s) (COUMADIN) 5 mg ORAL DAILY - WARFARIN hydroCHLOROthiazide 25 mg tab(s) (HYDRODIURIL, ESIDRIX) 25 mg ORAL DAILY cephALEXin 500 mg cap(s) (KEFLEX) 500 mg ORAL q 8 H [START ON 06/23/2018] omeprazole 20 mg cap(s) (PriLOSEC) 20 mg ORAL BEFORE BREAKFAST DAILY atorvastatin 10 mg tab(s) (LIPITOR) 10 mg ORAL AT BEDTIME docusate sodium 100 mg cap(s) (COLACE) 100 mg ORAL DAILY PRN iv contrast (radiology procedure) INTRAVENOUS DIRECTED PRN doxazosin 8 mg tab(s) (CARDURA) 8 mg ORAL DAILY 0.9% NaCl 3-5 mL 3-5 mL INTRAVENOUS q 12 H ondansetron orally disintegrating 4 mg tab(s) (ZOFRAN ODT) 4 mg ORAL q 6 H PRN ondansetron (PF) 4 mg injection (ZOFRAN) 4 mg INTRAVENOUS q 6 H PRN acetaminophen 650 mg tab(s) (TYLENOL) 650 mg ORAL q 6 H PRN enoxaparin 90 mg injection (LOVENOX) 1 mg/kg/dose SUBCUTANEOUS q 12 HR morphine 1-2 mg injection 1-2 mg INTRAVENOUS q 3 H PRN OBJECTIVE PHYSICAL EXAM: Patient Vitals for the past 24 hrs: BP Temp Temp src Pulse Resp SpO2 06/22/18 1634 129/78 - Oral 103 18 96 % 06/22/18 1112 113/69 37.1 ?C (98.8 ?F) Axillary 92 18 95 % 06/22/18 0733 117/73 36.7 ?C (98.1 ?F) Oral 104 18 93 % 06/22/18 0357 105/64 36.8 ?C (98.2 ?F) Oral 97 20 92 % 06/21/18 2343 110/67 37 ?C (98.6 ?F) Oral 103 18 93 % 06/21/182004 102/61 37.7 ?C (99.9 ?F) Oral 109 16 92 % Body mass index is 30.6 kg/m?. GENERAL: Alert, no distress, cooperative EXTREMITIES: slight improvement in lower extremity edema DATA: Diagnostic tests reviewed for today's visit: Most recent labs and imaging results. CBC: Recent Labs 06/22/18 0516 WBC 8.29 RBC 3.88* HB 12.4* HCT 38.1* PLT 147* MCV 98.2 MCH 32.0 MPV 11.8 Coags: Recent Labs 06/22/18 0516 INR 1.5* SIGNATURE: Kusum Valentine DO DATE: June 22, 2018 TIME: 6:09 PM THERAPY NT Observed: 06/22/2018 Status: COMPLETED Source: [place] 2:01 PM [facility] OTHER CAMPUS REPOSITORY HNO ID: [id number] Author: Karon SilvaOtr/LMickey Julian Service: Occupational Therapy Author Type: Occupational Therapist Type: Therapy (PT/OT/Speech/Resp) Filed: 06/22/2018 2:03 PM Note Text: OCCUPATIONAL THERAPY MISSED VISIT SERVICE DATE: 06/22/2018 SERVICE TIME: 1401 to 1401 ROOM: [place] [address] Attempted Evaluation. Patient not seen due to Other: See Comment. Per PT, pt with elevated groin pain limiting mobility and tolerance to functional activity. Will attempt OT evaluation as able and appropriate. SIGNATURE: ILIA Pinto/Gerald PATIENT NAME: Jovani Holman DATE: June 22, 2018 MRN: [id number] TIME: 2:01 PM PROGRESS Observed: 06/22/2018 Status: COMPLETED Source: [place] 1:49 PM [facility] OTHER CAMPUS REPOSITORY HNO ID: [id number] Author: Arsenio Keith Service: Hospital Medicine Author Type: Physician Type: Progress Notes Filed: 06/22/2018 1:50 PM Note Text: SERVICE DATE: 06/22/2018 SERVICE TIME: 1:49 PM HOSPITAL MEDICINE PROGRESS NOTE NIGHT AND WEEKEND COVERAGE: Nights: Please contact pager [phone]. 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 Patient was admitted in last admission with similar complaints. While in hospital last time he was on heparin gtt for bridging along with coumadin and was discharged on Coumadin. Patient went to see his PCP on 2 days and found to have sub-therapeutic INR. Patient started to have right groin pain Tuesday night which continues to worsen so he decided to come to ED. No other complaints. While in ED he was found to have sub-therapeutic INR. He was seen by vascular service. Patient has been given Lovenox and being admitted for pain control Patient also had USG of scrotum area showed Large cystic area and urology has been consulted as well. Patient seen and examined. Pain better now. No other complaints. SUBJECTIVE Interval Events: No Change Continues to have groin pain Pt was evaluated by urology Bridging coumadin with lovenox OBJECTIVE BP 113/69 Pulse 92 Temp (Src) 98.8 (Axillary) Resp 18 Ht 5' 9 (1.75m) Wt 207 lb 3.2 oz (94.0kg) SpO2 95% BMI 30.58 kg/(m2). Physical Exam Performed: GENERAL: GENERAL APPEARANCE NCCC: well appearing, alert and in no acute distress HEART: HEART CCF: regular rate and rhythm, no murmer, gallop or rub, normal, S1, S2, no lifts, heaves, or thrills, PMI not displaced LUNGS: LUNGS CCF: clear to percussion and auscultation and no rales ABDOMEN: ABDOMEN: Soft, nontender, bowel sounds normal, no palpable organomegaly, no bruits. EXTREMITY: EXTREMITY EXAM: Unilateral asymmetical edema of LLE GENITALIA MALE: normal penis, no hydrocele, tenderness to palpation and on elevation of scrotum Lines, Drains, and Airways Line Peripheral 06/21/18 1210 Left Antecubital 20 Gauge 1 day Reviewed lines, drains, AND airways. Need to be continued PIV Medications: Reviewed Diagnostic tests reviewed: Most recent imaging Most recent labs CARE COORDINATION: No Patient Care Coordination Note on file. 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 Readmission for INR sub therapeutic. Currently on lovenox bridging. During last admission his INR was 3 on 06/16 after 2.5 mg dose of coumadin and he did not take coumadin over that weekend Coumadin 5 mg daily. Check INR tomorrow. Can be discharged tomorrow (even on lovenox if sub-therapeutic) Acute deep vein thrombosis (DVT) of proximal vein of both lower extremities (HCC) 05/12/2018 - Present Current Assessment AND Plan As above Epididymo-orchitis 06/21/2018 - Present Current Assessment AND Plan USG of scrotum showed large cystic mass on left side. Urology recommended PO Abx for 2 weeks. Mixed hyperlipidemia 09/14/2010 - Present GERD (gastroesophageal reflux disease) 11/23/2013 - Present Chronic obstructive pulmonary disease (COPD) (HCC) Unknown - Present Medication and Non-Pharmacologic VTE Prophylaxis/Anticoagulants Anticoagulant AND Antiplatelet Medications Start Dose Route Frequency Ordered Stop 06/22/18 1700 warfarin 5 mg tab(s) (COUMADIN) 5 mg ORAL DAILY - WARFARIN 06/22/18 0915 -- 06/22/18 0400 enoxaparin 90 mg injection (LOVENOX) 1 mg/kg/dose SUBCUTANEOUS EVERY 12 HOURS 06/21/18 1745 -- 06/21/18 174 vte non-pharmacologic prophylaxis - none indicated (ny,vt) 06/21/181744 vte current anticoag therapy ([place], [place]) 06/21/181744 activity - mobilize patient ([place]) VTE Prophylaxis: VTE prophylaxis appropriate Plan of care discussed with: Patient and RN SIGNATURE: Arsenio Keith MD PATIENT NAME: Jovani Holman DATE: June 22, 2018 MRN: [id number] TIME: 1:49 PM PAGER/CONTACT #: [phone] THERAPY NT Observed: 06/22/2018 Status: COMPLETED Source: [place] 11:30 AM [facility] OTHER CAMPUS REPOSITORY O ID: [id number] Author: Lindsay Sandy Service: Physical Therapy Author Type: Physical Therapist Type: Therapy (PT/OT/Speech/Resp) Filed: 06/22/2018 1:32 PM Note Text: PHYSICAL THERAPY MISSED VISIT SERVICE DATE: 06/22/2018 SERVICE TIME: 1130 to 1140 ROOM: [place] [address] Attempted Evaluation. Patient not seen due to Other: See Comment. Patient reports that he has been getting up to bathroom however limited mobility tolerance due to pain. Patient reports independence with mobility at baseline without a device however has a FWW if needed. Patient reports history of groin pain and as soon as his INR improves his mobility and tolerance will improve. Patient concerned regarding getting a bill and feels that he is too painful to participate with PT eval this date. Discussed with patient that we will re approach tomorrow and if patient moving better in room with less pain will defer PT however if not moving better/continues to have poor tolerance will proceed with PT eval as appropriate if patient agreeable. Will re approach tomorrow as schedule permits. SIGNATURE: Lindsay Sandy PT PATIENT NAME: Jovani Holman DATE: June 22, 2018 MRN: [id number] TIME: 1:28 PM CONSULT Observed: 06/22/2018 Status: COMPLETED Source: [place] 9:41 AM [facility] OTHER CAMPUS REPOSITORY HNO ID: [id number] Author: Sarahy Perry Service: Urology Author Type: Physician Type: Consults Filed: 06/22/2018 9:49 AM Note Text: CONSULT: UROLOGY SERVICE SERVICE DATE: 06/22/2018 SERVICE TIME: 9:41 AM REASON FOR CONSULT: Left scrotal pain REQUESTING PHYSICIAN: PRIMARY CARE PHYSICIAN: Herminio Linares MD Subjective Mr. Holman is a 67 year old male who presents for left scrotal pain since April. PAST MEDICAL HISTORY Diagnosis Date - Acute deep vein thrombosis (DVT) of proximal vein of both lower extremities (HCC) 05/12/2018 - Adenomatous colon polyp 10/25/20132008 - Agent orange exposure 02/21/2016 - Bladder neck obstruction 09/19/2008 - BPH (benign prostatic hypertrophy) 09/19/2008 - Chewing tobacco use 01/11/2018 - Chronic obstructive pulmonary disease (COPD) ([facility]) - Coronary artery disease due to lipid rich plaque 01/11/2018 Cath around 2010 was told had one vessel at 30% blocked and maker at 50 %. As to be managed medically. 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 if this was a true Dx. - Mixed hyperlipidemia 09/14/2010 Chol 182 Tri 98 HDL 35 LDL 127 - Mixed simple and mucopurulent chronic bronchitis (HCC) 01/22/2016 - RAYRAY (obstructive sleep apnea) AHI 5.1 per 4% AND OS 10/15/2015 Was not able to tolerate - Other pulmonary embolism and infarction 09/13/2010 -pt had PE and DVT in 2005 after back surgery -an IVC filter was placed then and is still in place Was on coumadin for a time and then quit taking it on his own - Postinflammatory pulmonary fibrosis (HCC) 09/16/2010 - Presence of IVC filter 12/29/2014 - PVC's (premature ventricular contractions) 01/11/2018 - SOLAR LENGINES 06/08/2006 - Thoracic aortic aneurysm without rupture (HCC) 02/22/2018 See who patient sees cardio [place] next visit (07/14/2018) PAST SURGICAL HISTORY Procedure Laterality Date - 2D ECHO (EXEP) 01/13/2018 EF= 64%, Mild LVH and Tucker Dys, Mild LA enlargement and dialted ascending Aorta - COLONOS W/REM POLYP SNARE 01/06/16 adenomatous polyp - 3 year follow up - COLONOSCOP W/ OR W/O BRSH SPEC 10/23/2008 Colonoscopy, tubular adenoma - KIDNEY SURGERY HX - LEFT HEART CATH,PERCUTANEOUS 09/14/2010 Cardiac cath, L heart - PAST SURGICAL HISTORY OF 1997 partial removal left lung - [facility] - PAST SURGICAL HISTORY OF 3 back surgeries - REMV LENS MATERIAL,PHACOFRAGMT 2009 Cataract Extraction (right and left) - STRESS TEST 01/16/2018 normal FAMILY HISTORY Problem Relation Age of Onset - Diabetes Father - Stroke Father - Stroke Mother - Alzheimer's Disease Mother - Cancer Brother throat ca Social History Substance Use Topics - Smoking status: Former Smoker Packs/day: 0.50 Years: 40.00 Types: Cigarettes Quit date: 12/04/2010 - Smokeless tobacco: Current User Types: Chew Comment: quit smoking and chewing tobacco - Alcohol use No Prescriptions Prior to Admission: warfarin (COUMADIN) 2.5 mg tablet Take 1 tablet by mouth daily as directed. Take daily dose as instructed by physician. Disp: 30 tablet Rfl: 5 atorvastatin (LIPITOR) 10 mg tablet Take 2 tablets by mouth once daily. (Patient taking differently: Take 10 mg by mouth daily at bedtime. ) Disp: Rfl: 06/09/2018 at Unknown time aspirin, enteric coated (ASPIRIN, ENTERIC COATED) 81 mg EC tablet Take 81 mg by mouth once daily. Disp: Rfl: Not Taking doxazosin (CARDURA) 8 mg tablet Take 1 tablet by mouth every evening. Disp: 30 tablet Rfl: 11 06/09/2018 at Unknown time hydrochlorothiazide (HYDRODIURIL, ESIDRIX) 25 mg tablet Take 1 tablet by mouth once daily. Disp: 30 tablet Rfl: 11 06/10/2018 at Unknown time omeprazole (PRILOSEC) 20 mg capsule Take 1 capsule by mouth daily before breakfast. 1/2 hr before meal. Disp: 30 capsule Rfl: 11 Past Week at Unknown time Current hospital medications: warfarin 5 mg tab(s) (COUMADIN) 5 mg ORAL DAILY - WARFARIN hydroCHLOROthiazide 25 mg tab(s) (HYDRODIURIL, ESIDRIX) 25 mg ORAL DAILY iv contrast (radiology procedure) INTRAVENOUS DIRECTED PRN doxazosin 8 mg tab(s) (CARDURA) 8 mg ORAL DAILY simvastatin 40 mg tab(s) (ZOCOR) 40 mg ORAL DAILY pantoprazole DR 20 mg tab(s) (PROTONIX) 20 mg ORAL BEFORE BREAKFAST DAILY 0.9% NaCl 3-5 mL 3-5 mL INTRAVENOUS q 12 H ondansetron orally disintegrating 4 mg tab(s) (ZOFRAN ODT) 4 mg ORAL q 6 H PRN ondansetron (PF) 4 mg injection (ZOFRAN) 4 mg INTRAVENOUS q 6 H PRN acetaminophen 650 mg tab(s) (TYLENOL) 650 mg ORAL q 6 H PRN enoxaparin 90 mg injection (LOVENOX) 1 mg/kg/dose SUBCUTANEOUS q 12 HR morphine 1-2 mg injection 1-2 mg INTRAVENOUS q 3 H PRN Allergies As of Date: 06/21/2018 Allergen Noted Reaction BACTRIM [SULFAMETHOXAZOLE-TRIMETH*11/18/2008 Other: See Comments LEVAQUIN [LEVOFLOXACIN] 06/10/2005 GI Upset Fully Assessed 06/21/2018 COMPLETE REVIEW OF SYSTEMS: PAIN ASSESSMENT: CURRENTLY HAVING PAIN; LOCATION/DISTRIBUTION: Left scrotum PAIN SCALE: 5 on 0-10 scale per self PAIN CHARACTER: sharp DURATION: (How long have you had the pain?) 2 months AGGRAVATING FACTORS: activity ALLEVIATING FACTORS: resting Objective PHYSICAL EXAM: Patient Vitals for the past 24 hrs: BP Temp Temp src Pulse Resp SpO2 Height Weight 06/22/18 0733 117/73 36.7 ?C (98.1 ?F) Oral 104 18 93 % - - 06/22/18 0357 105/64 36.8 ?C (98.2 ?F) Oral 97 20 92 % - - 06/21/18 2343 110/67 37 ?C (98.6 ?F) Oral 103 18 93 % - - 06/21/182004 102/61 37.7 ?C (99.9 ?F) Oral 109 16 92 % - - 06/21/18 1735 130/79 36.7 ?C (98.1 ?F) Oral 106 18 96 % 175.3 cm (5' 9) 94 kg (207 lb 3.2 oz) 06/21/18 1652 - - - - - (!) 93 % - - 06/21/18 1650 - - - - - (!) 88 % - - 06/21/18 1630 130/79 - - (!) 104 18 96 % - - 06/21/18 1613 - - - (!) 97 - (!) 93 % - - 06/21/18 1502 121/76 - - (!) 118 18 96 % - - 06/21/18 1500 - - - (!) 115 - 95 % - - 06/21/18 1451 - - - - - 95 % - - 06/21/18 1449 - - - - - (!) 91 % - - 06/21/18 1430 123/77 - - (!) 104 18 (!) 93 % - - 06/21/18 1402 119/77 - - (!) 102 18 95 % - - 06/21/18 1335 126/75 - - (!) 101 18 95 % - - 06/21/18 1237 107/64 - - (!) 102 - (!) 94 % - - 06/21/18 1209 111/58 - - (!) 108 18 (!) 94 % - - 06/21/18 1150 (!) 88/68 37.2 ?C (98.9 ?F) Oral (!) 120 20 95 % - - Body mass index is 30.6 kg/m?. GENERAL: Alert, no distress, cooperative LUNGS: symmetric respiration ABDOMEN: Soft, nontender EXTREMITIES: FROM NEURO: no anxiety GENITALIA: Normal genitalia other than a mildly enlarged left hemiscrotum. He is exquisitely tender. There is fullness of the left epididymis. There is also mild erythema DATA: Diagnostic tests reviewed for today's visit: No results found for: PSA Glucose (mg/dL) Date Value 06/22/2018 101 (H) BUN (mg/dL) Date Value 06/22/2018 18 Creatinine (mg/dL) Date Value 06/22/2018 1.27 (H) Sodium (mmol/L) Date Value 06/22/2018 135 (L) Potassium (mmol/L) Date Value 06/22/2018 3.9 Chloride (mmol/L) Date Value 06/22/2018 99 CO2 (mmol/L) Date Value 06/22/2018 26 Protein, Total (g/dL) Date Value 06/22/2018 6.5 Albumin (g/dL) Date Value 06/22/2018 3.6 (L) Calcium (mg/dL) Date Value 06/22/2018 8.9 Alkaline Phosphatase (U/L) Date Value 06/22/2018 83 Bilirubin, Total (mg/dL) Date Value 06/22/2018 1.0 AST (U/L) Date Value 06/22/2018 13 (L) ALT (U/L) Date Value 06/22/2018 13 CBC with diff: WBC 8.29 06/22/2018 RBC 3.88 06/22/2018 Hemoglobin 12.4 06/22/2018 HCT 38.1 06/22/2018 MCV 98.2 06/22/2018 MCH 32.0 06/22/2018 MCHC 32.5 06/22/2018 RDW-CV 13.1 06/22/2018 PLT 147 06/22/2018 MPV 11.8 06/22/2018 Neut% 77.7 06/21/2018 Lymph% 11.8 06/21/2018 [place]% 10.3 06/21/2018 Eosin% 0.0 06/21/2018 Baso% 0.2 06/21/2018 Abs Neut (ANC) 6.86 06/21/2018 Abs [place] 0.91 06/21/2018 Abs Eosin <0.03 06/21/2018 Abs Baso <0.03 06/21/2018 pH, Urine Date Value Ref Range Status 06/21/2018 7.0 5.0 - 8.0 Final Specific [place], Ur Date Value Ref Range Status 06/21/2018 <=1.005 1.001 - 1.029 Final Glucose, Urine Date Value Ref Range Status 06/21/2018 Negative Negative mg/dL Final Bilirubin, Urine Date Value Ref Range Status 06/21/2018 Negative Negative Final Ketones, Urine Date Value Ref Range Status 06/21/2018 Negative Negative Final Hemoglobin/Blood,Ur Date Value Ref Range Status 06/21/2018 Negative Negative Final Protein, Urine Date Value Ref Range Status 06/21/2018 Negative Negative mg/dL Final Urobilinogen Date Value Ref Range Status 06/21/2018 0.2 0.2 - 1.0 Final Nitrites Date Value Ref Range Status 06/21/2018 Negative Negative Final I personally reviewed the patient's radiology images and dictation and I agree with the radiologist's opinion. I personally reviewed the patient's laboratory studies. Radiology: Results US DOPPLER COMPLETE (Order [id number]) Patient Info Patient Name Sex Jovani Parry (105) Male 1950 06/21/2018 ?5:05 PM - Radiology, [place] In Impression IMPRESSION: 1. ?There is a large cystic mass projecting upward from the superior aspect of the LEFT testicle probably arising out of the epididymis. ? Adjacent to this are markedly dilated rete testes and large cystic areas with seminiferous tubules. 2. ?Small LEFT hydrocele 3. ?RIGHT testicle unremarkable A: Left epididymal orchitis. P: By coverage. He can certainly be covered adequately with an oral antibiotic for 10-14 days. Scrotal elevation, rest, ice, Tylenol for pain and inflammation. SIGNATURE: Sarahy Perry MD PATIENT NAME: Jovani Holman DATE: June 22, 2018 MRN: [id number] TIME: 9:41 AM PAGER: NURSING PROG Observed: 06/22/2018 Status: COMPLETED Source: [place] 8:11 AM CLINIC OTHER CAMPUS REPOSITORY HNO ID: [id number] Author: Shana SilvaRn) SHIMA Valentine Service: Nursing Author Type: Registered Nurse Type: Nursing Progress Note Filed: 06/22/2018 5:39 PM Note Text: Nursing Progress Note Patient Name: Jovani Holman MRN: [id number] Patient Location: [facility] [id number] Daily Note: 0726 pt in bed resting, resp. Unlabored and even on ra, states his pain in R. Groin 04/14, emotional support given, bed in low position and locked, call light within reach. 0811 pt states he is taken off of ASA upon last discharge, taking HCTZ 25 mg daily and HTCZ not ordered this time, LIP paged r/t medication order clarification. 0857 no return call, repaged LIP. 0901 pt resting in bed comfortably, denies any pain,Unlabored and even on ra, Dr. Keith notified of pt's refusal of ASA this AM, also updated r/t HTCZ on [employer], bed in low position and locked, call light within reach. 1111 pt in bed resting, resp. Unlabored and even on ra, denies any need of pain med, states he feels like constipated, had last BM on 06/20/18, would like to have a stool softener, bed in low position and locked, call light within reach. LIP paged r/t need of stool softener. 1237 pt in bed resting, at bedside, scheduled medications administered, request diet change to regular, okay to change HRT healthy diet to regular diet okay per Dr. Keith. 1555 pt c/o R. Groin, PRN pain med administered, bed in low position and locked, call light within reach. 1700 pt in bed having dinner, resp. Unlabored and even on ra, states his pain /10, PRN med working, bed in low position and locked, call light within reach This note was completed by: Shana Valentine RN PROTIME Collected: 06/22/2018 Status: F Source: [place] 5:16 AM CLINIC OTHER CAMPUS REPOSITORY TYPE CODE TESTS RESULT OUT OF RANGE REFERENCE UNITS LAB PSEC 9.7-13.0 sec High PT Sec 15.0 LAB INR 0.9-1.3 High PT INR 1.5 Result Comment: Vitamin K Antagonist (VKA) Therapeutic Range: INR 2 to 3 (Target INR of 2.5) Note: For patients treated with VKA drugs, such as warfarin, the [employer] [place] [employer] 2012 Guideline recommends a therapeutic INR range of 2 to 3 (target INR of 2.5). This recommendation includes high-risk patients with antiphospholipid syndrome with previous arterial or venous thromboembolism, current-generation mechanical or bioprosthetic aortic heart valve replacement. Note: Patients with mechanical aortic valve replacement and additional risk factors for thromboembolic events (atrial fibrillation, previous thromboembolism, LV dysfunction, hypercoagulable conditions) or an older generation mechanical AVR (i.e., ball in-Cage) or any mechanical MVR should have a INR therapeutic range of 2.5 to 3.5 (target INR of 3). Nic CARRINGTON, et al. Chest 2012, [id number] Andrzej MILLAN et al. [facility] 2017, 70: [phone] Performed By: #### PT, CBC, CMP #### [facility] [address] [place] [address] CBC Collected: 06/22/2018 Status: F Source: [place] 5:16 AM [facility] OTHER CAMPUS REPOSITORY TYPE CODE TESTS RESULT OUT OF REFERENCE UNITS RANGE LAB WBC 3.70-11.00 k/uL WBC 8.29 LAB RBC 4.20-6.00 m/uL Low RBC 3.88 LAB HGB 13.0-17.0 g/dL Low Hemoglobin 12.4 LAB HCT 39.0-51.0 % Low Hematocrit 38.1 LAB MCV 80.0-100.0 fL MCV 98.2 LAB MCH 26.0-34.0 pG MCH 32.0 LAB MCHC 30.5-36.0 g/dL MCHC 32.5 LAB RDWCV 11.5-15.0 % RDW-CV 13.1 LAB PLTCT 150-400 k/uL Low Platelet Count 147 LAB MPV 9.0-12.7 fL MPV 11.8 Performed By: #### PT, CBC, CMP #### [facility] [address] [place] [address] COMP METABOLIC PANEL Collected: 06/22/2018 Status: F Source: [place] 5:16 AM [facility] OTHER CAMPUS REPOSITORY TYPE CODE TESTS RESULT OUT OF REFERENCE UNITS RANGE LAB TP 6.3-8.0 g/dL Protein, Total 6.5 LAB ALB 3.9-4.9 g/dL Low Albumin 3.6 LAB CA 8.5-10.2 mg/dL Calcium, Total 8.9 LAB TBIL 0.2-1.3 mg/dL Bilirubin, Total 1.0 LAB ALKP 38-113 U/L Alkaline Phosphatase 83 LAB AST 14-40 U/L Low AST 13 LAB GLU 74-99 mg/dL Glucose High 101 Result Comment: The [place] Diabetes [employer] (ADA) provides guidance for cutoff values for fasting glucose and random glucose. The ADA defines fasting as no caloric intake for at least 8 hours. Fas ting plasma glucose results between 100 to 125 mg/dL indicate increased risk for diabetes (prediabetes). Fasting plasma glucose results greater than or equal to 126 mg/dL meet the criteria for diagnosis of diabetes. In the absence of unequivocal hyperglycemia, results should be confirmed by repeat testing. In a patient with classic symptoms of hyperglycemia or hyperglycemic crisis, random plasma glucose results greater than or equal to 200 mg/dL meet the criteria for diagnosis of diabetes. Reference: Standards of Medical Care in Diabetes 2016, [place] [employer] Association. Diabetes Care. 2016.39(Suppl 1). LAB BUN 9-24 mg/dL BUN 18 LAB CRET 0.73-1.22 mg/dL Creatinine High 1.27 LAB NA 136-144 mmol/L Low Sodium 135 LAB K 3.7-5.1 mmol/L Potassium 3.9 LAB CL 97-105 mmol/L Chloride 99 LAB CO2 22-30 mmol/L CO2 26 LAB AGAP 9-18 mmol/L Anion Gap 10 LAB ALT 10-54 U/L ALT 13 LAB GFRAA eGFR- Amer. >60 LAB GFRNAA . eGFR-All Other Races 56 Result Comment: eGFR (Estimated GFR) Units of measure: mL/min/1.73 meters squared eGFR is derived from the reexpressed MDRD Study equation using the following parameters: serum creatinine, age, gender and race. The creatinine assay has been calibrated to be traceable to IDMS. An eGFR <60 mL/min/1.73m2 for >3 months is consistent with chronic kidney disease. Refer to KDOQI guidelines for clinical interpretation. In patients with unstable renal function, e.g. those with acute kidney injury, the eGFR may not accurately reflect actual GFR. Performed By: #### PT, CBC, CMP #### [facility] [address] [facility] [phone] HISTORY PHYSICAL Observed: 06/21/2018 Status: COMPLETED Source: [place] 6:32 PM CLINIC OTHER CAMPUS REPOSITORY HNO ID: [id number] Author: Reuben Gabriel Service: Hospital Medicine Author Type: Physician Type: HANDP Filed: 06/21/2018 6:33 PM Note Text: SERVICE DATE: 06/21/2018 SERVICE TIME: 6:32 PM HOSPITAL MEDICINE HISTORY AND PHYSICAL PCP: Herminio Linares MD NIGHT AND WEEKEND COVERAGE: Nights: Please contact pager [phone]. 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 Patient was admitted in last admission with similar complaints. While in hospital last time he was on heparin gtt for bridging along with coumadin and was discharged on Coumadin. Patient went to see his PCP on 2 days and found to have sub-therapeutic INR. Patient started to have right groin pain Tuesday night which continues to worsen so he decided to come to ED. No other complaints. While in ED he was found to have sub-therapeutic INR. He was seen by vascular service. Patient has been given Lovenox and being admitted for pain control Patient also had USG of scrotum area showed Large cystic area and urology has been consulted as well. Patient seen and examined. Pain better now. No other complaints. PAST MEDICAL HISTORY Diagnosis Date - Acute deep vein thrombosis (DVT) of proximal vein of both lower extremities (HCC) 05/12/2018 - Adenomatous colon polyp 10/25/20132008 - Agent orange exposure 02/21/2016 - Bladder neck obstruction 09/19/2008 - BPH (benign prostatic hypertrophy) 09/19/2008 - Chewing tobacco use 01/11/2018 - Chronic obstructive pulmonary disease (COPD) ([facility]) - Coronary artery disease due to lipid rich plaque 01/11/2018 Cath around 2010 was told had one vessel at 30% blocked and maker at 50 %. As to be managed medically. 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 if this was a true Dx. - Mixed hyperlipidemia 09/14/2010 Chol 182 Tri 98 HDL 35 LDL 127 - Mixed simple and mucopurulent chronic bronchitis (HCC) 01/22/2016 - RAYRAY (obstructive sleep apnea) AHI 5.1 per 4% AND OS 10/15/2015 Was not able to tolerate - Other pulmonary embolism and infarction 09/13/2010 -pt had PE and DVT in 2005 after back surgery -an IVC filter was placed then and is still in place Was on coumadin for a time and then quit taking it on his own - Postinflammatory pulmonary fibrosis (HCC) 09/16/2010 - Presence of IVC filter 12/29/2014 - PVC's (premature ventricular contractions) 01/11/2018 - SOLAR LENGINES 06/08/2006 - Thoracic aortic aneurysm without rupture (HCC) 02/22/2018 See who patient sees [facility] next visit (07/14/2018) PAST SURGICAL HISTORY Procedure Laterality Date - 2D ECHO (EXEP) 01/13/2018 EF= 64%, Mild LVH and Tucker Dys, Mild LA enlargement and dialted ascending Aorta - COLONOS W/REM POLYP SNARE 01/06/16 adenomatous polyp - 3 year follow up - COLONOSCOP W/ OR W/O BRSH SPEC 10/23/2008 Colonoscopy, tubular adenoma - KIDNEY SURGERY HX - LEFT HEART CATH,PERCUTANEOUS 09/14/2010 Cardiac cath, L heart - PAST SURGICAL HISTORY OF 1997 partial removal left lung - [facility] - PAST SURGICAL HISTORY OF 3 back surgeries - REMV LENS MATERIAL,PHACOFRAGMT 2009 Cataract Extraction (right and left) - STRESS TEST 01/16/2018 normal FAMILY HISTORY Problem Relation Age of Onset - Diabetes Father - Stroke Father - Stroke Mother - Alzheimer's Disease Mother - Cancer Brother throat ca Social History Substance Use Topics - Smoking status: Former Smoker Packs/day: 0.50 Years: 40.00 Types: Cigarettes Quit date: 12/04/2010 - Smokeless tobacco: Current User Types: Chew Comment: quit smoking and chewing tobacco - Alcohol use No Medications: Reviewed Allergies: ALLERGIES Allergen Reactions - Bactrim [Sulfametho* Other: See Comments sore throat - Levaquin [Levofloxa* GI Upset Review of Systems: GENERAL: No weight loss, malaise or fevers HEENT: Negative for frequent or significant headaches, No changes in hearing or vision, no nose bleeds or other nasal problems NECK: Negative for lumps, goiter, pain and significant neck swelling RESPIRATORY: Negative for cough, hemoptysis, wheezing, COPD, dyspnea or shortness of breath CARDIOVASCULAR: Negative for chest pain, leg swelling, hypertension, CHF or palpitations GI: No nausea, vomiting, or diarrhea : Groin pain+ MUSCULOSKELETAL: Negative for joint pain or swelling, back pain or muscle pain SKIN: Negative for lesions, rash, and itching PSYCH: Negative for sleep disturbance, mood disorder and recent psychosocial stressors HEMATOLOGY/LYMPHOLOGY: Negative for prolonged bleeding, bruising easily or swollen nodes ENDOCRINE: Negative for cold or heat intolerance, polyuria, polydipsia and goiter NEURO: No history of headaches, syncope, paralysis, seizures or tremors OBJECTIVE: PHYSICAL EXAM BP 130/79 Pulse 106 Temp (Src) 98.1 (Oral) Resp 18 Ht 5' 9 (1.75m) Wt 207 lb 3.2 oz (94.0kg) SpO2 96% BMI 30.58 kg/(m2). Physical Exam Performed: GENERAL: Alert, no distress, cooperative SKIN: Skin color, texture, turgor normal. No rashes or lesions. EYES: PERRLA, EOMI EARS: External ears normal, canals clear NOSE: Nares normal. Septum midline. LUNGS: Lungs clear to auscultation, Good diaphragmatic excursion CARDIAC: Normal S1 and S2; no rubs, murmurs, or gallops ABDOMEN: Abdomen soft, non-tender, BS normal, No masses or organomegaly EXTREMITIES: Right LE edema + NEURO: Gait normal. Reflexes normal and symmetric. Sensation grossly intact, Cranial nerves II-XII intact Lines, Drains, and Airways Line Peripheral 06/21/18 1210 Left Antecubital 20 Gauge less than 1 day Diagnostic tests reviewed: Most recent labs and imaging results CBC: Recent Labs 06/21/18 1209 WBC 8.83 RBC 4.17* HB 13.3 HCT 40.7 PLT 145* MCV 97.6 MCH 31.9 MPV 11.3 Coags: Recent Labs 06/21/18 1209 INR 1.4* APTT 29.3 BMP: Recent Labs 06/21/18 1209 NA 132* K 3.9 CHLOR 97 CO2 23 BUN 21 CREAT 1.47* GLUC 138* CMP: Recent Labs 06/21/18 1209 NA 132* K 3.9 CHLOR 97 CO2 23 BUN 21 CREAT 1.47* GLUC 138* TPROT 6.9 CA 9.3 TBILI 1.0 ALKPHOS 94 ALT 16 AST 15 ANION 12 Cardiac Enzymes: Recent Labs 06/21/18 1209 CK 47* 49* MB <1.0 TROPT <0.010 Liver Function, Amylase, Lipase: Recent Labs 06/21/18 1209 TPROT 6.9 ALB 4.1 ALT 16 AST 15 ALKPHOS 94 TBILI 1.0 CARE COORDINATION: No Patient Care Coordination Note on file. Assessment AND Plan, all Hosp Problems Active Hospital Problems as of 06/21/2018 Noted - Resolved A * (Principal)Inferior vena cava thromboembolism (HCC) 06/10/2018 - Present Current Assessment AND Plan Had CT AP showed similar as before. INR sub therapeutic will start on Lovenox. Give Coumadin 4 mg dose tonight. Check INR tomorrow. Need to redose coumadin tomorrow. B Acute deep vein thrombosis (DVT) of proximal vein of both lower extremities (HCC) 05/12/2018 - Present Current Assessment AND Plan Continue on Anticoagulation as noted above. Seen by vascular and does not need intervention. Groin pain 06/21/2018 - Present Current Assessment AND Plan Due to thrombosis?? Continue on pain control as needed. C Left groin mass 06/21/2018 - Present Current Assessment AND Plan USG of scrotum showed large cystic mass on left side. Urology consult. D Mixed hyperlipidemia 09/14/2010 - Present GERD (gastroesophageal reflux disease) 11/23/2013 - Present Chronic obstructive pulmonary disease (COPD) (HCC) Unknown - Present Medication and Non-Pharmacologic VTE Prophylaxis/Anticoagulants Anticoagulant AND Antiplatelet Medications Start Dose Route Frequency Ordered Stop 06/22/18 0400 enoxaparin 90 mg injection (LOVENOX) 1 mg/kg/dose SUBCUTANEOUS EVERY 12 HOURS 06/21/18 1745 -- 10/17/18 1800 aspirin, enteric coated 81 mg tab(s) 81 mg ORAL DAILY 06/21/181742 -- 06/21/181744 vte non-pharmacologic prophylaxis - none indicated (ny,oh) 06/21/181744 vte current anticoag therapy (ny,oh) 06/21/181744 activity - mobilize patient (ny,vt) VTE Prophylaxis: VTE prophylaxis appropriate SIGNATURE: Reuben Gabriel MD PATIENT NAME: Jovani Holman DATE: June 21, 2018 MRN: [id number] TIME: 6:32 PM PAGER/CONTACT #: [phone] US DOPPLER COMPLETE Observed: 06/21/2018 Status: F Source: [place] 4:31 PM CLINIC OTHER CAMPUS REPOSITORY * * *Final Report* * * DATE OF EXAM: Jun 21 2018 4:31PM JOHN [id number] - US DOPPLER COMPLETE / PROCEDURE REASON: Testicular pain, no trauma * * * * Physician Interpretation * * * * EXAMINATION: SCROTAL ULTRASOUND WITH DOPPLER IMAGING CLINICAL HISTORY: Ultrasound scrotum with duplex color flow Doppler: HISTORY: 67 years old Clinical information: Cryptorchidism Right-sided scrotal pain for 2 months Right-sided scrotal pain for 2 months TECHNIQUE: The testicles were examined using greenwood scale and color flow Doppler ultrasound. Images stored and permanent archive. Comparison:None Findings: Blood flow: Symmetrical to testicles and epididymis bilaterally. Measurements: Right Testicle: 4.5 x 2.0 x 2.8 cm Head of the right epididymis 8 x 8 x 8 mm. Testicular mass: None. Left Testicle 5.1 x 2.1 x 3.5 cm. Distinct separate head of the epididymis is not seen. There is a large complex cystic mass (3.3 x 2.5 cm) projecting superior to the testicle. Adjacent to this is marked dilatation of multiple rete testes as well as other complex larger cystic areas within the seminiferous tubules. IMPRESSION: 1. There is a large cystic mass projecting upward from the superior aspect of the LEFT testicle probably arising out of the epididymis. Adjacent to this are markedly dilated rete testes and large cystic areas with seminiferous tubules. 2. Small LEFT hydrocele 3. RIGHT testicle unremarkable Note: Communicated with Lucy HERRERA on 06/21/2018 4:34 PM Tire Service Technician: ELIZABETH Transcribe Date/Time: Jun 21 2018 4:34P Dictated by : MANUEL BAILON DO This examination was interpreted and the report reviewed and electronically signed by: MANUEL BAILON DO on Jun 21 2018 5:02PM EST [id number] US SCROTUM AND Observed: 06/21/2018 Status: F Source: [facility] 4:31 PM CLINIC OTHER CAMPUS REPOSITORY * * *Final Report* * * DATE OF EXAM: Jun 21 2018 4:31PM JOHN [id number] - US SCROTUM AND CONTENTS / PROCEDURE REASON: Cryptorchidism * * * * Physician Interpretation * * * * EXAMINATION: SCROTAL ULTRASOUND WITH DOPPLER IMAGING CLINICAL HISTORY: Ultrasound scrotum with duplex color flow Doppler: HISTORY: 67 years old Clinical information: Cryptorchidism Right-sided scrotal pain for 2 months Right-sided scrotal pain for 2 months TECHNIQUE: The testicles were examined using greenwood scale and color flow Doppler ultrasound. Images stored and permanent archive. Comparison:None Findings: Blood flow: Symmetrical to testicles and epididymis bilaterally. Measurements: Right Testicle: 4.5 x 2.0 x 2.8 cm Head of the right epididymis 8 x 8 x 8 mm. Testicular mass: None. Left Testicle 5.1 x 2.1 x 3.5 cm. Distinct separate head of the epididymis is not seen. There is a large complex cystic mass (3.3 x 2.5 cm) projecting superior to the testicle. Adjacent to this is marked dilatation of multiple rete testes as well as other complex larger cystic areas within the seminiferous tubules. IMPRESSION: 1. There is a large cystic mass projecting upward from the superior aspect of the LEFT testicle probably arising out of the epididymis. Adjacent to this are markedly dilated rete testes and large cystic areas with seminiferous tubules. 2. Small LEFT hydrocele 3. RIGHT testicle unremarkable Note: Communicated with Lucy HERRERA on 06/21/2018 4:34 PM Tire Service Technician: ELIZABETH Transcribe Date/Time: Jun 21 2018 4:34P Dictated by : MANUEL BAILON DO This examination was interpreted and the report reviewed and electronically signed by: MANUEL BAILON DO on Jun 21 2018 5:02PM EST [id number] CASE MGT INIT Observed: 06/21/2018 Status: COMPLETED Source: [facility] 4:28 PM CLINIC OTHER CAMPUS REPOSITORY HNO ID: [id number] Author: Hilaria (Rn) SHIMA Ramon Service: (none) Author Type: Registered Nurse Type: Care Mgt Initial Assessment Filed: 06/21/2018 4:33 PM Note Text: CARE MANAGEMENT: ASSESSMENT AND DISCHARGE PLAN SERVICE DATE: 06/21/2018 SERVICE TIME: 4:28 PM PRIMARY CARE PHYSICIAN: Herminio Linares MD (confirmed) ADMISSION STATUS: Emergency Needs Prior to Discharge: To Be Determined MEDICAL: Patient/Drapery Hand Stated Goals: To have reduction in pain To return home to life as it was Health Insurance: MEDICARE A AND B conseco Health Issues Impacting Discharge Plan: known blood clots in bilateral legs and his lung, states he is on anticoagulants s/p discharge from hospital last Tuesday Last Admission Date: Previous admit date: 06/10/2018 Is this Within the Past 30 days? Yes Is This a Planned Readmission? No: Recurrent symptoms of underlying disease Followed Up with Appointment Prior to Admission: Appointment completed Where Did the Patient Come From? Home Intervention Taken to Avoid Future Readmission? F/u appt and anticoagulants Advance Directive: Current Advance Directive: Health Care Power of Housing Property Manager In Chart: No Sweet Pickled Fruit Maker Attempted to Assist with AD Completion: Yes Action: Education Provided Health Literacy: 1. How often do you need to have someone help you when you read instructions, pamphlets, or other written material from your doctor or pharmacy? Never - 1 2. How confident are you filling out medical forms by yourself? Extremely - 1 If Patient scores > 3 on either question, the following interventions were put into place: Patient did not score > 3 FUNCTIONAL AND COGNITIVE/BEHAVIORAL PRIOR TO ADMISSION: Baseline Mental Status: Alert AND Oriented, Person, Place , Time and Situation Functional Status: Independent Does Patient Currently Receive Any Community Services or Home Care? None Equipment Prior to Admission: None Has the Patient Been in a Intermediate Facility in the Past 30 days? No SOCIAL: Living Arrangement: Home Lives With: Spouse Financial Resources: Retired Primary Contact: Extended Emergency Contact Information Primary Emergency Contact: Ashley Holman Address: [address] [place] [address] Mobile Relation: Spouse Secondary Emergency Contact: Catherine Burns Mobile Relation: Daughter Supportive: Yes Other Important Patient Contacts: None Caregiver Assessment: Caregiver is ready, willing and able to meet the patient's needs as recommended by the inter-professional team? No Caregiver Needed Patient's transition needs and plan for meeting these needs: TBD Does the patient have an acute stroke diagnosis, or has the patient had a stroke during this admission? No Medication Adherence: I am convinced of the importance of my prescription medication: Agree mostly - 0 I worry that my prescription medication will do more harm than good to me Disagree mostly - 0 I feel financially burdened by my [id number] expenses for my prescription medication: Disagree mostly -0 Patient is categorized as low risk < 2 Are you interested in bedside delivery of your medications? No , uses [facility] in [place] Food Concerns: In the Last Month, Have You had Trouble Getting Food? No trouble getting food During the Last Month, Have You Worried Whether Your Food Would Run Out Before You Had Enough Money to Buy More? No Is the Patient Psychosocially Complex? No ASSESSMENT AND PLAN: Medical Needs: 2 or more chronic diseases Psychosocial Needs: None FREEDOM OF CHOICE EXPLAINED: Yes . POTENTIAL TRANSITION PLANS No Services Indicated CM in to speak with patient and spouse Ashley at bedside, introduced self and role. Pt is a 67y/o, presents to ed with c/o groin pain, known blood clots in bilateral legs and his lung, states he is on anticoagulants s/p discharge from hospital last Tuesday . Pt is AANDOx4, resides with spouse in a 1SH. SENIOR SQL DBA pt was indep/self care,denies use of DME, HHC or SNF. CM instructed pt that a CM will remain available for any d/c needs. Pt had no further questions/concerns voiced at this time. SIGNATURE: Hilaria Ramon RN PATIENT NAME: Jovani Holman DATE: June 21, 2018 MRN: [id number] TIME: 4:28 PM PAGER/CONTACT #: [phone] CONSULT PROG Observed: 06/21/2018 Status: COMPLETED Source: [place] 4:22 PM CLINIC OTHER CAMPUS REPOSITORY HNO ID: [id number] Author: Kusum Valentine Service: Vascular Surgery Author Type: Physician Type: Consult Progress Note Filed: 06/21/2018 4:27 PM Note Text: CONSULT: Vascular Surgery SERVICE SERVICE DATE: 06/21/2018 SERVICE TIME: 4:22 PM REASON FOR CONSULT: IVC thrombosis REQUESTING PHYSICIAN: ER PRIMARY CARE PHYSICIAN: Herminio Linares MD Subjective Mr. Holman is a 67 year old male who presents for worsening right groin pain. Earlier this month he had a CT which demonstrated thrombosis of infrarenal IVC at his IVC filter and prior to that admission he was diagnosed with bilateral lower extremity DVTs at [facility]. He was initially on xarelto however when diagnosed with filter thrombosis we transitioned him to heparin/coumadin bridging. He was supratherapeutic and coumadin held. Recheck on Tuesday and he was 1.4. Noticed that his right groin pain worsened when INR was low. Upon discharge last week, his symptoms significantly improved. FUNCTIONAL STATUS: Independent PAST MEDICAL HISTORY Diagnosis Date - Acute deep vein thrombosis (DVT) of proximal vein of both lower extremities (HCC) 05/12/2018 - Adenomatous colon polyp 10/25/20132008 - Agent orange exposure 02/21/2016 - Bladder neck obstruction 09/19/2008 - BPH (benign prostatic hypertrophy) 09/19/2008 - Chewing tobacco use 01/11/2018 - Chronic obstructive pulmonary disease (COPD) ([facility]) - Coronary artery disease due to lipid rich plaque 01/11/2018 Cath around 2010 was told had one vessel at 30% blocked and maker at 50 %. As to be managed medically. 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 if this was a true Dx. - Mixed hyperlipidemia 09/14/2010 Chol 182 Tri 98 HDL 35 LDL 127 - Mixed simple and mucopurulent chronic bronchitis (HCC) 01/22/2016 - RAYRAY (obstructive sleep apnea) AHI 5.1 per 4% AND OS 10/15/2015 Was not able to tolerate - Other pulmonary embolism and infarction 09/13/2010 -pt had PE and DVT in 2005 after back surgery -an IVC filter was placed then and is still in place Was on coumadin for a time and then quit taking it on his own - Postinflammatory pulmonary fibrosis (HCC) 09/16/2010 - Presence of IVC filter 12/29/2014 - PVC's (premature ventricular contractions) 01/11/2018 - SOLAR LENGINES 06/08/2006 - Thoracic aortic aneurysm without rupture (HCC) 02/22/2018 See who patient sees [facility] next visit (07/14/2018) PAST SURGICAL HISTORY Procedure Laterality Date - 2D ECHO (EXEP) 01/13/2018 EF= 64%, Mild LVH and Tucker Dys, Mild LA enlargement and dialted ascending Aorta - COLONOS W/REM POLYP SNARE 01/06/16 adenomatous polyp - 3 year follow up - COLONOSCOP W/ OR W/O BRSH SPEC 10/23/2008 Colonoscopy, tubular adenoma - KIDNEY SURGERY HX - LEFT HEART CATH,PERCUTANEOUS 09/14/2010 Cardiac cath, L heart - PAST SURGICAL HISTORY OF 1997 partial removal left lung - [facility] - PAST SURGICAL HISTORY OF 3 back surgeries - REMV LENS MATERIAL,PHACOFRAGMT 2009 Cataract Extraction (right and left) - STRESS TEST 01/16/2018 normal FAMILY HISTORY Problem Relation Age of Onset - Diabetes Father - Stroke Father - Stroke Mother - Alzheimer's Disease Mother - Cancer Brother throat ca Social History Substance Use Topics - Smoking status: Former Smoker Packs/day: 0.50 Years: 40.00 Types: Cigarettes Quit date: 12/04/2010 - Smokeless tobacco: Current User Types: Chew Comment: quit smoking and chewing tobacco - Alcohol use No (Not in a hospital admission) Current hospital medications: iv contrast (radiology procedure) INTRAVENOUS DIRECTED PRN NaCl 0.9% 1,000 mL iv bolus 1,000 mL INTRAVENOUS ONCE Allergies As of Date: 06/21/2018 Allergen Noted Reaction BACTRIM [SULFAMETHOXAZOLE-TRIMETH*11/18/2008 Other: See Comments LEVAQUIN [LEVOFLOXACIN] 06/10/2005 GI Upset Fully Assessed 06/21/2018 COMPLETE REVIEW OF SYSTEMS: GENERAL: No weight loss, malaise or fevers RESPIRATORY: Negative for cough, hemoptysis, wheezing, COPD, dyspnea or shortness of breath CARDIOVASCULAR: Negative for chest pain, leg swelling, hypertension, CHF or palpitations GI: No nausea, vomiting, or diarrhea : No history of dysuria, frequency or incontinence MUSCULOSKELETAL: Negative for joint pain or swelling, back pain or muscle pain and See HPI HEMATOLOGY/LYMPHOLOGY: Negative for prolonged bleeding, bruising easily or swollen nodes ENDOCRINE: Negative for cold or heat intolerance, polyuria, polydipsia and goiter NEURO: No history of headaches, syncope, paralysis, seizures or tremors Objective PHYSICAL EXAM: Physical Exam Performed: GENERAL: Alert, no distress, cooperative ABDOMEN: Abdomen soft, non-tender, BS normal, No masses or organomegaly EXTREMITIES: Right thigh and calf edema, left calf edema, palpable dp bilaterally PULSES: 2+ dorsalis pedis BP 121/76 Pulse 97 Temp (Src) 98.9 (Oral) Resp 18 SpO2 93% DATA: Diagnostic tests reviewed for today's visit: Most recent labs and imaging results. CBC: Recent Labs 06/21/18 1209 WBC 8.83 RBC 4.17* HB 13.3 HCT 40.7 PLT 145* MCV 97.6 MCH 31.9 MPV 11.3 Coags: Recent Labs 06/21/18 1209 INR 1.4* APTT 29.3 BMP: Recent Labs 06/21/18 1209 NA 132* K 3.9 CHLOR 97 CO2 23 BUN 21 CREAT 1.47* GLUC 138* CT abdomen/pelvis- no change or propagation of IVC thrombus, bilateral lower extremity thrombus. No evidence of PE Impression/Recommendations Active Problems: IVC filter thrombosis, DVT -Recommend lovenox and coumadin -PT/OT, pain control to assist with groin pain -No evidence of limb threatening ischemia SIGNATURE: Kusum Valentine DO PATIENT NAME: Jovani Holman DATE: June 21, 2018 MRN: [id number] TIME: 4:22 PM PAGER:[id number] ED NOTE Observed: 06/21/2018 Status: COMPLETED Source: [place] 3:00 PM CLINIC OTHER CAMPUS REPOSITORY HNO ID: [id number] Author: Charline (Rn) SHIMA Rivera Service: (none) Author Type: Registered Nurse Type: ED Notes Filed: 06/21/2018 3:37 PM Note Text: Pt walking in [place] with rn and medic, pulse 115 bpm, 95% spo2 on room air. Nelson dunn ED NOTE Observed: 06/21/2018 Status: COMPLETED Source: [place] 2:45 PM CLINIC OTHER CAMPUS REPOSITORY HNO ID: [id number] Author: Charline (Rn) SHIMA Rivera Service: (none) Author Type: Registered Nurse Type: ED Notes Filed: 06/21/2018 2:52 PM Note Text: Clean catch urine specimen obtained and sent. URINALYSIS Collected: 06/21/2018 Status: F Source: [place] 2:41 PM [facility] REPOSITORY TYPE CODE TESTS RESULT OUT OF REFERENCE UNITS RANGE LAB UCOL Yellow Color Yellow LAB [facility] Clear Clarity Clear LAB UGLUC Negative mg/dL Glucose, Urine Negative LAB UBIL Negative Bilirubin, Urine Negative LAB UKET Negative Ketones, Urine Negative LAB USPG 1.001-1.029 Specific [place], Ur <=1.005 LAB UHGB Negative Hemoglobin/Blood, Negative Ur LAB UPH 5.0-8.0 pH 7.0 LAB UPROT Negative mg/dL Protein, Urine Negative LAB UUROB 0.2-1.0 Urobilinogen 0.2 LAB UNITR Negative Nitrites Negative LAB ULKEST Negative Leukest Negative Performed By: #### UA #### [facility] [address] [facility] [phone] CT ABD/PEL W IVCON Observed: 06/21/2018 Status: F Source: [place] 1:11 PM [facility] REPOSITORY * * *Final Report* * * DATE OF EXAM: Jun 21 2018 1:11PM [facility] [place] - CT ABD/PEL W IVCON / PROCEDURE REASON: Embolism and thrombosis of inferior vena cava * * * * Physician Interpretation * * * * PROCEDURE: CT CHEST W IVCON PE, CT ABD/PEL W IVCON INDICATION: Shortness of breath TECHNIQUE: Multiplanar reconstructed images. Images of the chest were done at 1 mm increments with scanning timing to maximize the contrast opacity of the pulmonary arterial system. Scans of the abdomen and pelvis were delayed for 3 minutes after contrast injection to try to look for radiolucent thrombus in the IVC and iliac veins and upper femoral veins. Contrast information: Contrast1: Omnipaque 350 Contrast Dose1: 100 ContrastAdminRoute1: IV CT Radiation dose: Integrated Dose-length product (DLP) for this visit = 1054 mGy*cm. CT Dose Reduction Employed: No dose reduction techniques were required Comparison: 06/10/[address] chest and 06/08/2018 CT abdomen pelvis FINDINGS: Pulmonary embolus CT chest: No pulmonary emboli are found. Pulmonary arteries are well opacified. There is no thoracic aortic aneurysm. There is limited contrast opacification of the thoracic aorta. No mediastinal hematoma is noted. No lymphadenopathy is noted. Small amount of pericardial fluid is again present and appears insignificant. Lungs show peripheral groundglass infiltrate in the left lower lobe which appears slightly greater than previously and may be a combination of chronic changes along with subsegmental atelectasis, perhaps accentuated by somewhat shallow depth of inspiration. Bony structures appear intact. CT abdomen and pelvis: Imaging done from the diaphragms down through the upper thighs with a 3 minute delay after IV contrast injection again shows lucent thrombus in the IVC and both common iliac veins and the right external iliac, femoral vein. Taking into account different technique there is no significant interval change in the appearance of this thrombus. IVC filter is again seen with its upper tip at the level of the renal veins. Grossly on limited delayed postcontrast scanning the liver, spleen, kidneys, pancreas, and adrenals appear unremarkable. No lymphadenopathy or free air or free fluid. IMPRESSION: No pulmonary emboli. There is again extensive abdominal and pelvic thrombus as detailed Tire Service Technician: [facility] Transcribe Date/Time: Jun 21 2018 1:20P Dictated by : SARAHY GALLARDO MD This examination was interpreted and the report reviewed and electronically signed by: SARAHY GALLARDO MD on Jun 21 2018 2:11PM EST [id number] CT CHEST W IVCON PE Observed: 06/21/2018 Status: F Source: [place] 1:11 PM [facility] OTHER CAMPUS REPOSITORY * * *Final Report* * * DATE OF EXAM: Jun 21 2018 1:11PM [facility] [place] - CT CHEST W IVCON PE / PROCEDURE REASON: Shortness of breath * * * * Physician Interpretation * * * * PROCEDURE: CT CHEST W IVCON PE, CT ABD/PEL W IVCON INDICATION: Shortness of breath TECHNIQUE: Multiplanar reconstructed images. Images of the chest were done at 1 mm increments with scanning timing to maximize the contrast opacity of the pulmonary arterial system. Scans of the abdomen and pelvis were delayed for 3 minutes after contrast injection to try to look for radiolucent thrombus in the IVC and iliac veins and upper femoral veins. Contrast information: Contrast1: Omnipaque 350 Contrast Dose1: 100 ContrastAdminRoute1: IV CT Radiation dose: Integrated Dose-length product (DLP) for this visit = 1054 mGy*cm. CT Dose Reduction Employed: No dose reduction techniques were required Comparison: 06/10/[address] chest and 06/08/2018 CT abdomen pelvis FINDINGS: Pulmonary embolus CT chest: No pulmonary emboli are found. Pulmonary arteries are well opacified. There is no thoracic aortic aneurysm. There is limited contrast opacification of the thoracic aorta. No mediastinal hematoma is noted. No lymphadenopathy is noted. Small amount of pericardial fluid is again present and appears insignificant. Lungs show peripheral groundglass infiltrate in the left lower lobe which appears slightly greater than previously and may be a combination of chronic changes along with subsegmental atelectasis, perhaps accentuated by somewhat shallow depth of inspiration. Bony structures appear intact. CT abdomen and pelvis: Imaging done from the diaphragms down through the upper thighs with a 3 minute delay after IV contrast injection again shows lucent thrombus in the IVC and both common iliac veins and the right external iliac, femoral vein. Taking into account different technique there is no significant interval change in the appearance of this thrombus. IVC filter is again seen with its upper tip at the level of the renal veins. Grossly on limited delayed postcontrast scanning the liver, spleen, kidneys, pancreas, and adrenals appear unremarkable. No lymphadenopathy or free air or free fluid. IMPRESSION: No pulmonary emboli. There is again extensive abdominal and pelvic thrombus as detailed Tire Service Technician[facility] Transcribe Date/Time: Jun 21 2018 1:20P Dictated by : SARAHY GALLARDO MD This examination was interpreted and the report reviewed and electronically signed by: SARAHY GALLARDO MD on Jun 21 2018 2:11PM EST [id number] ED PROV NOTE Observed: 06/21/2018 Status: COMPLETED Source: [place] 12:59 PM CLINIC OTHER CAMPUS REPOSITORY HNO ID: [id number] Author: Lucy Trejo (Pa) Service: Emergency Medicine Author Type: Physician Translator Deaf Type: ED Provider Notes Filed: 06/21/2018 5:25 PM Note Text: Attestation signed by Gabriel Jc III, MD at 06/22/2018 9:27 AM Attending Note I have personally performed a face to face assessment of the patient and have reviewed the PA/ANIMAL CAREGIVER note. My mayer findings include: This is a 67-year-old male presents for complaints of worsening right groin pain. Patient has an extensive venous thrombosis in his IVC and right lower extremity which is known he said his groin pain for weeks. He originally was using xarelto then was switched to Coumadin by vascular medicine. He is subtherapeutic today. His CT however she was the same clot burden that was there before. He reports the pain can be excruciating and sometimes has difficulty walking. He given endorse the pain radiated to his testicle but his ultrasound showed no evidence of torsion or any emergent urologic condition. His CT shows no signs of infection, his distal neurovascular examination is intact and he does not have any evidence of phlegmasia--intact 2 + pulses. At this point because this pain is intractable he will be admitted for further treatment by medicine. Given 1 dose of Lovenox down here. Signature: Gabriel Jc III, MD Date: 06/22/2018 Time: 9:11 AM t ED Provider Note Patient Name: Jovani Holman MRN: [id number] SERVICE DATE: 06/21/18 History Patient presents with: Groin Pain: right 67 year old male with past medical hx of DVT, BPH, COPD, CAD, Embolism of IVC, GERD, HTN, Hyperlipidemia, and pulmonary fibrosis presents with worsening right groin pain. Patient was recently admitted on June 10 for extensive venous thrombosis in the inferior vein edema. This is below his IVC. IVC was placed in 2005. Patient was also on Xeralto. There is concern he could have failed the Xeralto or was taken off anticoagulation at some point and was not appropriately anticoagulated. It is unclear. He was admitted for heparin therapy and bridged to warfarin. Patient reports he had improvement of symptoms while in the hospital. He states since Tuesday, June 19 he's had right groin pain. He does report he was noted to be subtherapeutic on his INR on that day. He is concerned he could have worsening cough. He did follow up today with FULL STACK ENGINEER at his PCPs office and was recommended to present to the ED. He denies any chest pain. Note dyspnea. No fever, chills, or sweats. No cough. All other review systems unremarkable. PAST MEDICAL HISTORY Diagnosis Date - Acute deep vein thrombosis (DVT) of proximal vein of both lower extremities (HCC) 05/12/2018 - Adenomatous colon polyp 10/25/20132008 - Agent orange exposure 02/21/2016 - Bladder neck obstruction 09/19/2008 - BPH (benign prostatic hypertrophy) 09/19/2008 - Chewing tobacco use 01/11/2018 - Chronic obstructive pulmonary disease (COPD) ([facility]) - Coronary artery disease due to lipid rich plaque 01/11/2018 Cath around 2010 was told had one vessel at 30% blocked and maker at 50 %. As to be managed medically. 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 if this was a true Dx. - Mixed hyperlipidemia 09/14/2010 Chol 182 Tri 98 HDL 35 LDL 127 - Mixed simple and mucopurulent chronic bronchitis (HCC) 01/22/2016 - RAYRAY (obstructive sleep apnea) AHI 5.1 per 4% AND OS 10/15/2015 Was not able to tolerate - Other pulmonary embolism and infarction 09/13/2010 -pt had PE and DVT in 2005 after back surgery -an IVC filter was placed then and is still in place Was on coumadin for a time and then quit taking it on his own - Postinflammatory pulmonary fibrosis (HCC) 09/16/2010 - Presence of IVC filter 12/29/2014 - PVC's (premature ventricular contractions) 01/11/2018 - SOLAR LENGINES 06/08/2006 - Thoracic aortic aneurysm without rupture (HCC) 02/22/2018 See who patient sees cardio [place] next visit (07/14/2018) PAST SURGICAL HISTORY Procedure Laterality Date - 2D ECHO (EXEP) 01/13/2018 EF= 64%, Mild LVH and Tucker Dys, Mild LA enlargement and dialted ascending Aorta - COLONOS W/REM POLYP SNARE 01/06/16 adenomatous polyp - 3 year follow up - COLONOSCOP W/ OR W/O BRSH SPEC 10/23/2008 Colonoscopy, tubular adenoma - KIDNEY SURGERY HX - LEFT HEART CATH,PERCUTANEOUS 09/14/2010 Cardiac cath, L heart - PAST SURGICAL HISTORY OF 1997 partial removal left lung - [facility] - PAST SURGICAL HISTORY OF 3 back surgeries - REMV LENS MATERIAL,PHACOFRAGMT 2009 Cataract Extraction (right and left) - STRESS TEST 01/16/2018 normal FAMILY HISTORY Problem Relation Age of Onset - Diabetes Father - Stroke Father - Stroke Mother - Alzheimer's Disease Mother - Cancer Brother throat ca Social History Social History Main Topics - Smoking status: Former Smoker Packs/day: 0.50 Years: 40.00 Types: Cigarettes Quit date: 12/04/2010 - Smokeless tobacco: Current User Types: Chew Comment: quit smoking and chewing tobacco - Alcohol use No - Drug use: No - Sexual activity: Not on file ALLERGIES Allergen Reactions - Bactrim [Sulfametho* Other: See Comments sore throat - Levaquin [Levofloxa* GI Upset Review of Systems Constitutional: Negative for chills, fatigue and fever. HENT: Negative for congestion, ear pain and sore throat. Eyes: Negative for pain and visual disturbance. Respiratory: Negative for cough, choking and shortness of breath. Cardiovascular: Negative for chest pain and palpitations. Gastrointestinal: Negative for abdominal pain, diarrhea, nausea and vomiting. Genitourinary: Negative for dysuria, frequency and urgency. Musculoskeletal: Negative for back pain and neck pain. +right groin pain Skin: Negative for rash and wound. Neurological: Negative for syncope, speech difficulty, weakness and numbness. All other systems reviewed and are negative. Physical Exam BP 111/58 Pulse 108 Temp (Src) 98.9 (Oral) Resp 18 SpO2 94% Physical Exam Constitutional: He is oriented to person, place, and time. He appears well-developed and well-nourished. HENT: Head: Normocephalic and atraumatic. Eyes: Pupils are equal, round, and reactive to light. EOM are normal. Neck: Normal range of motion. Neck supple. Cardiovascular: Regular rhythm and intact distal pulses. Tachycardia present. Pulmonary/Chest: Effort normal and breath sounds normal. No respiratory distress. He has no wheezes. Abdominal: Soft. Bowel sounds are normal. He exhibits no distension and no mass. There is no tenderness. There is no guarding. Musculoskeletal: Normal range of motion. He exhibits edema (LE b/l). Right groin: TTP in right groin. Normal inspection. 2+ PT and DP pulses. Neurological: He is alert and oriented to person, place, and time. No cranial nerve deficit or sensory deficit. He exhibits normal muscle tone. Coordination normal. Skin: Skin is warm. Capillary refill takes less than 2 seconds. He is not diaphoretic. Nursing note and vitals reviewed. Diagnostic Testing ED Labs Ordered and Reviewed COMP METABOLIC PANEL - Abnormal; Notable for the following: Result Value Ref Range Glucose 138 (*) 74 - 99 mg/dL Creatinine 1.47 (*) 0.73 - 1.22 mg/dL Sodium 132 (*) 136 - 144 mmol/L All other components within normal limits CBC + DIFF - Abnormal; Notable for the following: RBC 4.17 (*) 4.20 - 6.00 m/uL Platelet Count 145 (*) 150 - 400 k/uL Abs [place] 0.91 (*) <0.87 k/uL All other components within normal limits PROTHROMBIN TIME/PT - Abnormal; Notable for the following: PT Sec 13.7 (*) 9.7 - 13.0 sec PT INR 1.4 (*) 0.9 - 1.3 All other components within normal limits CK TOTAL AND CK-MB - Abnormal; Notable for the following: CK 49 (*) 51 - 298 U/L All other components within normal limits NT PRO BNP - Abnormal; Notable for the following: NT Pro BNP 251 (*) <125 pg/mL All other components within normal limits ACTIVATED PTT TROPONIN T URINALYSIS Procedures ED Course / Clinical Impression Clinical Impressions as of Jun 21 1719 IVC thrombosis (HCC) Subtherapeutic anticoagulation Right groin pain MDM / Disposition / Plan Patient presents with right groin pain. History of extensive DVT. Feels similar. Workup was pursued. Initially his vitals showed he was hypotensive and tachycardic in triage. On my evaluation patient with blood pressure was 111/58 and was tachycardic at 108. Pulse ox 94% on room air. He denies any shortness of breath. Workup was pursued. EKG showed sinus tachycardia at a rate of 190s from the PVC noted. LAD noted. No ST elevation MO noted. CBC shows clinic, 45 otherwise unremarkable. CMP shows glucose 138, creatinine 1.47, sodium 132. BNP 251 BNP 251. . Urinalysis unremarkable. CT chest: No PE. Extensive abdominal and pelvic thrombus. Coughing appears to be similar to prior study. It does not appear to be worse. We did try to have patient ambulate. He had pain with ambulation. He needs to go sit back down. While he related his pulse ox remained 95% on room air. Given the worsening symptoms of pain difficulty with ambulation we feel patient would benefit from an observation for further evaluation. Patient is subtherapeutic with his INR. Given Lovenox. I did speak with hospitalist for admission. They're agreeable. Patient's pain is in his right groin, however, he does have have some testicular pain on the right. Ultrasound was ordered. Ultrasound revealed a large cystic mass projecting upward from the superior aspect of the left testicle probably arising out of the epididymis. Adjacent to this are markedly dilated testes and large cystic areas within the seminiferous tubules. I did speak with urology in regards to this, Dr. La. Since patient is being admitted they will consult. Patient has good blood flow bilaterally. I made patient aware results. He does report he did have trauma to his left testicle when he was in the fifth grade. He reports a horse kicked him in the groin. He denied any need for surgical intervention. Patient will be admitted for further evaluation and treatment. Disposition The patient was admitted. Admitted to Regular Nursing Floor. Condition at disposition is stable. SIGNATURE: BLANCA Luna (Pa) 06/21/18 [id number] Gabriel Jc III, MD 06/22/18 [id number] CBC AND DIFFERENTIAL Collected: 06/21/2018 Status: F Source: [place] 12:09 PM CLINIC OTHER CAMPUS REPOSITORY TYPE CODE TESTS RESULT OUT OF REFERENCE UNITS RANGE LAB WBC 3.70-11.00 k/uL WBC 8.83 LAB RBC 4.20-6.00 m/uL Low RBC 4.17 LAB HGB 13.0-17.0 g/dL Hemoglobin 13.3 LAB HCT 39.0-51.0 % Hematocrit 40.7 LAB MCV 80.0-100.0 fL MCV 97.6 LAB MCH 26.0-34.0 pG MCH 31.9 LAB MCHC 30.5-36.0 g/dL MCHC 32.7 LAB RDWCV 11.5-15.0 % RDW-CV 13.4 LAB PLTCT 150-400 k/uL Low Platelet Count 145 LAB MPV 9.0-12.7 fL MPV 11.3 LAB ANEUT % Neut% 77.7 LAB AANEUT 1.45-7.50 k/uL Abs Neut 6.86 LAB ALYMP % Lymph% 11.8 LAB AALYMP 1.00-4.00 k/uL Abs Lymph 1.04 LAB AMONO % [place]% 10.3 LAB AAMONO <0.87 k/uL Abs [place] High 0.91 LAB AEOS % Eosin% 0.0 LAB AAEOS <0.46 k/uL Abs Eosin <0.03 LAB ABASO % Baso% 0.2 LAB AABASO <0.11 k/uL Abs Baso <0.03 Performed By: #### CBCDIF, PT, PTT, CMP #### [facility] [address] [place] [address] PROTIME Collected: 06/21/2018 Status: F Source: [place] 12:09 PM [facility] OTHER CAMPUS REPOSITORY TYPE CODE TESTS RESULT OUT OF RANGE REFERENCE UNITS LAB PSEC 9.7-13.0 sec High PT Sec 13.7 LAB INR 0.9-1.3 High PT INR 1.4 Result Comment: Vitamin K Antagonist (VKA) Therapeutic Range: INR 2 to 3 (Target INR of 2.5) Note: For patients treated with VKA drugs, such as warfarin, the [place] [employer] 2012 Guideline recommends a therapeutic INR range of 2 to 3 (target INR of 2.5). This recommendation includes high-risk patients with antiphospholipid syndrome with previous arterial or venous thromboembolism, current-generation mechanical or bioprosthetic aortic heart valve replacement. Note: Patients with mechanical aortic valve replacement and additional risk factors for thromboembolic events (atrial fibrillation, previous thromboembolism, LV dysfunction, hypercoagulable conditions) or an older generation mechanical AVR (i.e., ball in-Cage) or any mechanical MVR should have a INR therapeutic range of 2.5 to 3.5 (target INR of 3). Nic GH, et al. Chest 2012, 141:7S-47S Andrzej RA, et al. [facility] 2017, 70: 252-289 Performed By: #### CBCDIF, PT, PTT, CMP #### [facility] [address] [place] [address] APTT Collected: 06/21/2018 Status: F Source: [place] 12:09 [facility] REPOSITORY TYPE CODE TESTS RESULT OUT OF RANGE REFERENCE UNITS LAB APTT 23.0-32.4 sec APTT 29.3 Result Comment: Unfractionated Heparin Therapeutic Ranges: Standard Heparin Nomogram: 53 to 78 seconds (anti-Xa level of 0.3 to 0.7 U/ml) Low Dose/ACS Nomogram: 49 to 67 seconds (anti-Xa level of 0.2 to 0.5 U/ml) Stroke Treatment Nomogram: 49 to 67 seconds (anti-Xa level of 0.2 to 0.5 U/ml) Note: The APTT therapeutic range has been determined for the current lot of laboratory APTT reagent in use throughout the [facility]. Performed By: #### CBCDIF, PT, PTT, CMP #### [facility] [address] [place] [address] COMP METABOLIC PANEL Collected: 06/21/2018 Status: F Source: [place] 12:09 PM [facility] OTHER [place] REPOSITORY TYPE CODE TESTS RESULT OUT OF REFERENCE UNITS RANGE LAB TP 6.3-8.0 g/dL Protein, Total 6.9 LAB ALB 3.9-4.9 g/dL Albumin 4.1 LAB CA 8.5-10.2 mg/dL Calcium, Total 9.3 LAB TBIL 0.2-1.3 mg/dL Bilirubin, Total 1.0 LAB ALKP 38-113 U/L Alkaline Phosphatase 94 LAB AST 14-40 U/L AST 15 LAB GLU 74-99 mg/dL Glucose High 138 Result Comment: The [place] Diabetes Association (ADA) provides guidance for cutoff values for fasting glucose and random glucose. The ADA defines fasting as no caloric intake for at least 8 hours. Fas ting plasma glucose results between 100 to 125 mg/dL indicate increased risk for diabetes (prediabetes). Fasting plasma glucose results greater than or equal to 126 mg/dL meet the criteria for diagnosis of diabetes. In the absence of unequivocal hyperglycemia, results should be confirmed by repeat testing. In a patient with classic symptoms of hyperglycemia or hyperglycemic crisis, random plasma glucose results greater than or equal to 200 mg/dL meet the criteria for diagnosis of diabetes. Reference: Standards of Medical Care in Diabetes 2016, [place] [employer]. Diabetes Care. 2016.39(Suppl 1). LAB BUN 9-24 mg/dL BUN 21 LAB CRET 0.73-1.22 mg/dL Creatinine High 1.47 LAB NA 136-144 mmol/L Low Sodium 132 LAB K 3.7-5.1 mmol/L Potassium 3.9 LAB CL 97-105 mmol/L Chloride 97 LAB CO2 22-30 mmol/L CO2 23 LAB AGAP 9-18 mmol/L Anion Gap 12 LAB ALT 10-54 U/L ALT 16 LAB GFRAA eGFR- Amer. 57 LAB GFRNAA . eGFR-All Other Races 47 Result Comment: eGFR (Estimated GFR) Units of measure: mL/min/1.73 meters squared eGFR is derived from the reexpressed MDRD Study equation using the following parameters: serum creatinine, age, gender and race. The creatinine assay has been calibrated to be traceable to IDMS. An eGFR <60 mL/min/1.73m2 for >3 months is consistent with chronic kidney disease. Refer to KDOQI guidelines for clinical interpretation. In patients with unstable renal function, e.g. those with acute kidney injury, the eGFR may not accurately reflect actual GFR. Performed By: #### CBCDIF, PT, PTT, CMP #### [facility] [address] [place] [address] TROPONIN T Collected: 06/21/2018 Status: F Source: [facility] 12:09 PM [facility]IN[facility] OTHER CAMPUS REPOSITORY TYPE CODE TESTS RESULT OUT OF REFERENCE UNITS RANGE LAB TROPT 0.000-0.029 ng/mL Troponin T <0.010 Performed By: #### DARIUS #### [facility] [address] CK, TOTAL AND CKMB Collected: 06/21/2018 Status: F Source: [facility] 12:09 PM [facility] OTHER CAMPUS REPOSITORY TYPE CODE TESTS RESULT OUT OF REFERENCE UNITS RANGE LAB CK 51-298 U/L Low 49 CK LAB MB <7.7 ng/mL MB <1.0 LAB CKMBRI 0.0-4.0 % CK CK MB MB % not % reported with CK <100 U/L. Performed By: #### CKCKMB, NTBNP #### [facility] [address] [address] NT PRO BNP Collected: 06/21/2018 Status: F Source: [facility] 12:09 PM [facility] OTHER [place] REPOSITORY TYPE CODE TESTS RESULT OUT OF REFERENCE UNITS RANGE LAB PBNP <125 pg/mL High PRO B Natr 251 Peptide Performed By: #### CKCKMB, NTBNP #### [facility] [address] [place] [address] CK Collected: 06/21/2018 Status: F Source: [facility] 12:09 PM OTHER [place] REPOSITORY TYPE CODE TESTS RESULT OUT OF RANGE REFERENCE UNITS LAB CK 51-298 U/L Low CK 47 Performed By: #### CK, CRP #### [facility] [address] [place] [address] C-REACTIVE PROTEIN Collected: 06/21/2018 Status: F Source: [place] 12:09 PM [facility] OTHER [place] REPOSITORY TYPE CODE TESTS RESULT OUT OF REFERENCE UNITS RANGE LAB CRP <0.9 mg/dL High C-Reactive 8.3 Protein Performed By: #### CK, CRP #### [facility] [address] [place] [address] EKG Observed: 06/21/2018 Status: F Source: [place] 11:55 AM [facility] OTHER CAMPUS REPOSITORY NAME : JOVANI HOLMAN PID : [id number] : [id number] Gender : Male Race : ORD : [id number] Procedure Date : Jun 21 2018 11:55:35 Edit Date : Jun 22 2018 06:45:13 Diagnosis:SINUS TACHYCARDIA WITH OCCASIONAL PREMATURE VENTRICULAR COMPLEXES POSSIBLE LEFT ATRIAL ENLARGEMENT LEFT AXIS DEVIATION CANNOT RULE OUT ANTERIOR INFARCT , AGE UNDETERMINED ABNORMAL ECG NO PREVIOUS ECGS AVAILABLE I AGREE NSL 1205 NO STEMI Confirmed by JEREMÍAS ROSE MD, NICHOLAS ([id number]), assistant editor BRADLEY TAMAYO ([id number]) on 06/22/2018 6:45:07 AM Ventricular Rate : 109 BPM Atrial Rate : 109 BPM P-R Interval : 184 ms QRS Duration : 88 ms Q-T Interval : 330 ms QTC Calculation(Bezet) : 444 ms P Lincoln : 28 degrees R Lincoln : -43 degrees T Lincoln : 16 degrees Test Reason : Arrhythmia Location : 1 : ER 3 Overread By : JEREMÍAS ROSE MD, NICHOLAS Edited By : BRADLEY TAMAYO Referred By : , Acquired by : EOK, ED NOTE Observed: 06/21/2018 Status: COMPLETED Source: [place] 11:51 AM [facility] OTHER [place] REPOSITORY HNO ID: [id number] Author: Edda (Rn) SHIMA Vences Service: Emergency Medicine Author Type: Registered Nurse Type: ED Notes Filed: 06/21/2018 11:52 AM Note Text: Pt presents with c/o increased right groin pain since Tuesday evening. Pt called his PCP, who recommended he report to ED for evaluation. Pt reports known blood clots in bilateral legs and his lung, states he is on anticoagulants s/p discharge from hospital last Tuesday. Pt denies SOB or chest pain. CNOV Observed: 06/21/2018 Status: COMPLETED Source: [facility] 8:40 AM [facility] REPOSITORY Office Visit (FAMPWS) JOVANI HOLMAN ([id number]) 1950 M Date Time Provider Department 06/21/18 8:40 AM JAYMIE MONAE ([facility]) FAMPWS During your visit today, we recorded the following information about you: Pulse Respiration Blood pressure Weight 60/minute 14/minute 134/76 94.8 kg Jaymie Monae APRN.CNP 06/21/2018 9:47 AM Signed HPI/CC: Jovani Holman is a 67 year old male who presents to the office today for hospital follow-up. He was to [facility] following c/o right inguinal pain for 2 weeks. 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 No PE). Pt has a hx of DVT/PE. He had an IVC filter placed appx 2005. He developed bilat DVTs and PE in May. Was discharged with xarelto. He had developed complaints of right groin discomfort. Further evaluation revealed a progression of DVT and had extensive clots below his IVC filter. He was placed on heparin and coumadin. When discharged from the hospital on Tuesday, his INR was 3.2 and he was instructed to hold his coumadin. On Tuesday, his INR was 1.4 and he resumed 2.5 of Coumadin. On Tuesday evening, he developed significant, progressively worsening right groin pain. He had some remaining oxycodone left from a previous hospitalization, which he needed to take for the pain. He reports that he does get some RLE swelling. No n/t. No pain in the leg, just the groin. HOSPITAL COURSE: 67 yo man with hx of HTN BPH COPD DVT/PE, IVC filter, presenting with right inguinal pain for 2 weeks. Had imaging showing extensive clots below his IVC. He had been taking xarelto prior to admission for ~ 1 month. He was started on heparin to coumadin bridge because of lack of insurance coverage of other NOAC. He has been overlapped successfully and heparin discontinued but coumadin still being adjusted. ? Outpatient coumadin plan discussed below: ? REASON I WAS IN THE HOSPITAL: Right groin pain from progression of deep venous thrombosis. Xarelto suspected to not be working well enough. Started on coumadin. Most recent INR's of 3.3 on 06/15 and 3.2 on 06/16. Will need to see Dr. Linares's office at 1 pm in [place] to have INR checked and coumadin dose adjusted. Coumadin to be held over the weekend and only restarted once Dr. Linares's office has an INR check less than 3. Will most likely benefit from restarting coumadin at a dose intensity of 2.[address] Zavaleta and Dr. Linares communicated about the plan over telephone ~5 pm 06/15/[address] Linares to assume responsibility after patient leaves the hospital Abd/Pelvis CT 06/10/2018 10:03 AM - Radiology, Oru In Impression IMPRESSION: EXTENSIVE THROMBUS THROUGHOUT THE IVC AND COMMON ILIAC VEINS WITHOUT PROPAGATION ABOVE THE IVC FILTER. Chest CT: 06/10/2018 ?1:45 PM - Radiology, Oru In Impression IMPRESSION: 1. ?No CT evidence of pulmonary embolism. 2. ?Subpleural reticular changes with more focal adjacent increased density since previous study. ?This is seen along the posterior lateral chest wall in the lingula and LEFT lower lobe-etiology uncertain. ?May relate to interstitial lung disease and scarring. Refers that his groin hurts more now, than when this first started. Refers that his pain got worse on Tuesday night. Refers he had a few pain pills left from a previous hospitalization, otherwise, he wouldn't have even gotten in here today. Refers that the groin that he could hardly walk. Refers that he didn't require any pain medication during hospitalization. Refers his INR was up to 3.2. Refers that his coumadin restarted on Tuesday at 2.5 mg. Due to have recheck INR Tomorrow. REVIEW OF SYSTEMS GENERAL: No weight loss, malaise or fevers/chills HEENT: Negative for frequent or significant headaches, No changes in hearing or vision. RESPIRATORY: Negative for cough, hemoptysis, wheezing, dyspnea or shortness of breath CARDIOVASCULAR: Negative for chest pain, leg swelling, orthopnea, or palpitations GI: No nausea, vomiting, or diarrhea/constipation. No hematochezia/melena. No heartburn or reflux symptoms. : No history of dysuria, frequency or incontinence SKIN: Negative for lesions, rash, and itching NEURO: No history of headaches, syncope, paralysis, seizures or tremors HISTORIES: PAST MEDICAL HISTORY Diagnosis Date - Acute deep vein thrombosis (DVT) of proximal vein of both lower extremities (HCC) 05/12/2018 - Adenomatous colon polyp 10/25/20132008 - Agent orange exposure 02/21/2016 - Bladder neck obstruction 09/19/2008 - BPH (benign prostatic hypertrophy) 09/19/2008 - Chewing tobacco use 01/11/2018 - Chronic obstructive pulmonary disease (COPD) (HCC) - Coronary artery disease due to lipid rich plaque 01/11/2018 Cath around 2010 was told had one vessel at 30% blocked and maker at 50 %. As to be managed medically. 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 if this was a true Dx. - Mixed hyperlipidemia 09/14/2010 Chol 182 Tri 98 HDL 35 LDL 127 - Mixed simple and mucopurulent chronic bronchitis (HCC) 01/22/2016 - RAYRAY (obstructive sleep apnea) AHI 5.1 per 4% AND OS 10/15/2015 Was not able to tolerate - Other pulmonary embolism and infarction 09/13/2010 -pt had PE and DVT in 2005 after back surgery -an IVC filter was placed then and is still in place Was on coumadin for a time and then quit taking it on his own - Postinflammatory pulmonary fibrosis (HCC) 09/16/2010 - Presence of IVC filter 12/29/2014 - PVC's (premature ventricular contractions) 01/11/2018 - SOLAR LENGINES 06/08/2006 - Thoracic aortic aneurysm without rupture (HCC) 02/22/2018 See who patient sees [facility] next visit (07/14/2018) PAST SURGICAL HISTORY Procedure Laterality Date - 2D ECHO (EXEP) 01/13/2018 EF= 64%, Mild LVH and Tucker Dys, Mild LA enlargement and dialted ascending Aorta - COLONOS W/REM POLYP SNARE 01/06/16 adenomatous polyp - 3 year follow up - COLONOSCOP W/ OR W/O BRSH SPEC 10/23/2008 Colonoscopy, tubular adenoma - KIDNEY SURGERY HX - LEFT HEART CATH,PERCUTANEOUS 09/14/2010 Cardiac cath, L heart - PAST SURGICAL HISTORY OF 1997 partial removal left lung - [facility] - PAST SURGICAL HISTORY OF 3 back surgeries - REMV LENS MATERIAL,PHACOFRAGMT 2009 Cataract Extraction (right and left) - STRESS TEST 01/16/2018 normal FAMILY HISTORY Problem Relation Age of Onset - Diabetes Father - Stroke Father - Stroke Mother - Alzheimer's Disease Mother - Cancer Brother throat ca Social History Marital status: Spouse name: Years of education: Number of children: 3 Social History Main Topics Smoking status: Former Smoker Packs/day: 0.50 Years: 40.00 Types: Cigarettes Quit date: 12/04/2010 Smokeless tobacco: Current User Types: Chew Comment: quit smoking and chewing tobacco Alcohol use: No Drug use: No Current Outpatient Prescriptions on File Prior to Visit: warfarin (COUMADIN) 2.5 mg tablet Take 1 tablet by mouth daily as directed. Take daily dose as instructed by physician. atorvastatin (LIPITOR) 10 mg tablet Take 2 tablets by mouth once daily. (Patient taking differently: Take 10 mg by mouth daily at bedtime. ) aspirin, enteric coated (ASPIRIN, ENTERIC COATED) 81 mg EC tablet Take 81 mg by mouth once daily. doxazosin (CARDURA) 8 mg tablet Take 1 tablet by mouth every evening. hydrochlorothiazide (HYDRODIURIL, ESIDRIX) 25 mg tablet Take 1 tablet by mouth once daily. omeprazole (PRILOSEC) 20 mg capsule Take 1 capsule by mouth daily before breakfast. 1/2 hr before meal. No current facility-administered medications on file prior to visit. ALLERGIES Allergen Reactions - Bactrim [Sulfametho* Other: See Comments sore throat - Levaquin [Levofloxa* GI Upset PHYSICAL EXAMINATION: BP 134/76 (BP Site: Left Arm, BP Position: Sitting, BP Cuff Size: Large Adult) Pulse 60 Resp 14 Wt 94.8 kg (209 lb) SpO2 89% BMI 29.99 kg/m? General appearance: Well appearing, alert, uncomfortable, well-hydrated, well nourished. Skin: Skin color, texture, turgor normal, no suspicious rashes or lesions Head: Normocephalic, no masses, lesions, tenderness or abnormalities Eyes: Anicteric sclera. Extraocular movements are intact. Lungs: Lungs clear to auscultation. No wheezing, rhonchi, rales, Lungs clear to auscultation. No wheezing, rhonchi, rales Heart: RRR without murmur, gallop, or rubs. No ectopy Abdomen: Abdomen soft, non-tender. Bowel sounds normal. No masses, organomegaly. No bruits. Extremities: +2 RLE edema. No LLE edema. Some bilateral reddish/purplish discoloration of feet in the dependent position. Peripheral pulses: dp and pt pulses present via doppler. Neuro: Gait with difficulty. ASSESSMENT/PLAN: 1. Inferior vena cava thromboembolism (HCC) - ICD9: 453.2, ICD10: I82.220 Worsening right groin pain after being subtherapeutic with anticoagulation. Case discussed with PCP, Dr. Linares. Agreed that patient should return to ER for further eval/treat. Reports called to [facility]. Discussed treatment plan and patient voices understanding. Patient's questions answered appropriately. Medications and potential side effects were discussed and patient voices understanding. Return to the office as scheduled or as needed for worsening/no improvement. Jaymie Monae APRN.CHAIR CANER Referring Provider: WANDA ZAVALETA [[id number]] Allergies As of Date: 06/21/2018 Noted Allergy Reaction BACTRIM (SULFAMETHOXAZOLE-TRIMETH*11/18/2008 14 - Other: See Comments Comments: sore throat LEVAQUIN (LEVOFLOXACIN) 06/10/2005 8 - GI Upset Date Reviewed: 06/21/2018 Reviewed by: Twila Adair [employer] - Fully Assessed Reason for Visit: Hospital Follow Up [177] Primary Visit Diagnosis:Inferior vena cava thromboembolism (HCC) [I82.220] Prescriptions as of 06/21/2018 Sig: WARFARIN 2.5 MG TABLET Take 1 tablet by mouth daily * ATORVASTATIN 10 MG TABLET Take 2 tablets by mouth once * Patient taking differently: Take 10 mg by mouth daily at * ASPIRIN 81 MG TABLET,DELAYED * Take 81 mg by mouth once effie* DOXAZOSIN 8 MG TABLET Take 1 tablet by mouth every * HYDROCHLOROTHIAZIDE 25 MG TAB* Take 1 tablet by mouth once d* OMEPRAZOLE 20 MG CAPSULE,JULIET* Take 1 capsule by mouth daily* Problem List As Of Date 06/21/2018 Noted Resolved Tobacco use disorder [F17.200] 08/05/2016 SOLAR LENGINES [L81.9] INVALID FOR* Priority: D Idiopathic urticaria [L50.1] INVALID FOR* Priority: D Lumbago [M54.5] INVALID FOR* Priority: M Benign prostatic hyperplasia [N40.0] INVALID FOR* Priority: E More... Bladder neck obstruction [N32.0] INVALID FOR* Priority: C Diverticulosis of colon (without mention of hem*INVALID FOR* Priority: C More... More... Essential hypertension [I10] INVALID FOR* Priority: C More... Tobacco abuse [Z72.0] INVALID FOR*08/05/2016 Priority: D More... Other pulmonary embolism and infarction [I26.99]INVALID FOR* Priority: B More... Mixed hyperlipidemia [E78.2] INVALID FOR* Priority: A More... More... Leg edema [R60.0] INVALID FOR* Priority: B More... 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 Screening for colon cancer [Z12.11] INVALID FOR* Mixed simple and mucopurulent chronic bronchiti*INVALID FOR* Priority: A Agent orange exposure [Z77.098] INVALID FOR* Priority: B Coronary artery disease due to lipid rich plaqu*INVALID FOR* Priority: A More... Well adult exam [Z00.00] INVALID FOR* Priority: E More... Chronic obstructive pulmonary disease (COPD) (H* Priority: A Ex-smoker [Z87.891] INVALID FOR*06/14/2018 Priority: B More... Chewing tobacco use [Z72.0] INVALID FOR* Priority: B Medicare annual wellness visit, subsequent [Z00*INVALID FOR* Priority: E More... PVC's (premature ventricular contractions) [I49*INVALID FOR* Priority: A Thoracic aortic aneurysm without rupture (HCC) *INVALID FOR* Priority: A More... Lumbar foraminal stenosis [M99.83] INVALID FOR* More... Herniation of intervertebral disc between L4 an*INVALID FOR* Acute deep vein thrombosis (DVT) of proximal ve*INVALID FOR* Priority: B Inferior vena cava thromboembolism (HCC) [I82.2*INVALID FOR* Priority: A More... Embolism of inferior vena cava (HCC) [I82.220] INVALID FOR* Priority: B Chronic anticoagulation [Z79.01] INVALID FOR* Encounter Status:Closed by JAYMIE MONAE CNP on 06/21/18 PROGRESS Observed: 06/21/2018 Status: COMPLETED Source: [place] 8:34 AM [facility] REPOSITORY HNO ID: [id number] Author: Jaymie Joseph) Letha Service: (none) Author Type: Nurse Practitioner Type: Progress Notes Filed: 06/21/2018 9:47 AM Note Text: HPI/CC: Jovani Holman is a 67 year old male who presents to the office today for hospital follow-up. He was to [facility] following c/o right inguinal pain for 2 weeks. 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 No PE). Pt has a hx of DVT/PE. He had an IVC filter placed appx 2005. He developed bilat DVTs and PE in May. Was discharged with xarelto. He had developed complaints of right groin discomfort. Further evaluation revealed a progression of DVT and had extensive clots below his IVC filter. He was placed on heparin and coumadin. When discharged from the hospital on Tuesday, his INR was 3.2 and he was instructed to hold his coumadin. On Tuesday, his INR was 1.4 and he resumed 2.5 of Coumadin. On Tuesday evening, he developed significant, progressively worsening right groin pain. He had some remaining oxycodone left from a previous hospitalization, which he needed to take for the pain. He reports that he does get some RLE swelling. No n/t. No pain in the leg, just the groin. HOSPITAL COURSE: 67 yo man with hx of HTN BPH COPD DVT/PE, IVC filter, presenting with right inguinal pain for 2 weeks. Had imaging showing extensive clots below his IVC. He had been taking xarelto prior to admission for ~ 1 month. He was started on heparin to coumadin bridge because of lack of insurance coverage of other NOAC. He has been overlapped successfully and heparin discontinued but coumadin still being adjusted. ? Outpatient coumadin plan discussed below: ? REASON I WAS IN THE HOSPITAL: Right groin pain from progression of deep venous thrombosis. Xarelto suspected to not be working well enough. Started on coumadin. Most recent INR's of 3.3 on 06/15 and 3.2 on 06/16. Will need to see Dr. Linares's office at 1 pm in [place] to have INR checked and coumadin dose adjusted. Coumadin to be held over the weekend and only restarted once Dr. Linares's office has an INR check less than 3. Will most likely benefit from restarting coumadin at a dose intensity of 2.[address] Zavaleta and Dr. Linares communicated about the plan over telephone ~5 pm 06/15/[address] Linares to assume responsibility after patient leaves the hospital Abd/Pelvis CT 06/10/2018 10:03 AM - Radiology, Oru In Impression IMPRESSION: EXTENSIVE THROMBUS THROUGHOUT THE IVC AND COMMON ILIAC VEINS WITHOUT PROPAGATION ABOVE THE IVC FILTER. Chest CT: 06/10/2018 ?1:45 PM - Radiology, Oru In Impression IMPRESSION: 1. ?No CT evidence of pulmonary embolism. 2. ?Subpleural reticular changes with more focal adjacent increased density since previous study. ?This is seen along the posterior lateral chest wall in the lingula and LEFT lower lobe-etiology uncertain. ?May relate to interstitial lung disease and scarring. Refers that his groin hurts more now, than when this first started. Refers that his pain got worse on Tuesday night. Refers he had a few pain pills left from a previous hospitalization, otherwise, he wouldn't have even gotten in here today. Refers that the groin that he could hardly walk. Refers that he didn't require any pain medication during hospitalization. Refers his INR was up to 3.2. Refers that his coumadin restarted on Tuesday at 2.5 mg. Due to have recheck INR Tomorrow. REVIEW OF SYSTEMS GENERAL: No weight loss, malaise or fevers/chills HEENT: Negative for frequent or significant headaches, No changes in hearing or vision. RESPIRATORY: Negative for cough, hemoptysis, wheezing, dyspnea or shortness of breath CARDIOVASCULAR: Negative for chest pain, leg swelling, orthopnea, or palpitations GI: No nausea, vomiting, or diarrhea/constipation. No hematochezia/melena. No heartburn or reflux symptoms. : No history of dysuria, frequency or incontinence SKIN: Negative for lesions, rash, and itching NEURO: No history of headaches, syncope, paralysis, seizures or tremors HISTORIES: PAST MEDICAL HISTORY Diagnosis Date - Acute deep vein thrombosis (DVT) of proximal vein of both lower extremities (HCC) 05/12/2018 - Adenomatous colon polyp 10/25/20132008 - Agent orange exposure 02/21/2016 - Bladder neck obstruction 09/19/2008 - BPH (benign prostatic hypertrophy) 09/19/2008 - Chewing tobacco use 01/11/2018 - Chronic obstructive pulmonary disease (COPD) (HCC) - Coronary artery disease due to lipid rich plaque 01/11/2018 Cath around 2010 was told had one vessel at 30% blocked and maker at 50 %. As to be managed medically. 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 if this was a true Dx. - Mixed hyperlipidemia 09/14/2010 Chol 182 Tri 98 HDL 35 LDL 127 - Mixed simple and mucopurulent chronic bronchitis (HCC) 01/22/2016 - RAYRAY (obstructive sleep apnea) AHI 5.1 per 4% AND OS 10/15/2015 Was not able to tolerate - Other pulmonary embolism and infarction 09/13/2010 -pt had PE and DVT in 2005 after back surgery -an IVC filter was placed then and is still in place Was on coumadin for a time and then quit taking it on his own - Postinflammatory pulmonary fibrosis (HCC) 09/16/2010 - Presence of IVC filter 12/29/2014 - PVC's (premature ventricular contractions) 01/11/2018 - SOLAR LENGINES 06/08/2006 - Thoracic aortic aneurysm without rupture (HCC) 02/22/2018 See who patient sees [facility] next visit (07/14/2018) PAST SURGICAL HISTORY Procedure Laterality Date - 2D ECHO (EXEP) 01/13/2018 EF= 64%, Mild LVH and Tucker Dys, Mild LA enlargement and dialted ascending Aorta - COLONOS W/REM POLYP SNARE 01/06/16 adenomatous polyp - 3 year follow up - COLONOSCOP W/ OR W/O BRSH SPEC 10/23/2008 Colonoscopy, tubular adenoma - KIDNEY SURGERY HX - LEFT HEART CATH,PERCUTANEOUS 09/14/2010 Cardiac cath, L heart - PAST SURGICAL HISTORY OF 1997 partial removal left lung - [facility] - PAST SURGICAL HISTORY OF 3 back surgeries - REMV LENS MATERIAL,PHACOFRAGMT 2009 Cataract Extraction (right and left) - STRESS TEST 01/16/2018 normal FAMILY HISTORY Problem Relation Age of Onset - Diabetes Father - Stroke Father - Stroke Mother - Alzheimer's Disease Mother - Cancer Brother throat ca Social History Marital status: Spouse name: Years of education: Number of children: 3 Social History Main Topics Smoking status: Former Smoker Packs/day: 0.50 Years: 40.00 Types: Cigarettes Quit date: 12/04/2010 Smokeless tobacco: Current User Types: Chew Comment: quit smoking and chewing tobacco Alcohol use: No Drug use: No Current Outpatient Prescriptions on File Prior to Visit: warfarin (COUMADIN) 2.5 mg tablet Take 1 tablet by mouth daily as directed. Take daily dose as instructed by physician. atorvastatin (LIPITOR) 10 mg tablet Take 2 tablets by mouth once daily. (Patient taking differently: Take 10 mg by mouth daily at bedtime. ) aspirin, enteric coated (ASPIRIN, ENTERIC COATED) 81 mg EC tablet Take 81 mg by mouth once daily. doxazosin (CARDURA) 8 mg tablet Take 1 tablet by mouth every evening. hydrochlorothiazide (HYDRODIURIL, ESIDRIX) 25 mg tablet Take 1 tablet by mouth once daily. omeprazole (PRILOSEC) 20 mg capsule Take 1 capsule by mouth daily before breakfast. 1/2 hr before meal. No current facility-administered medications on file prior to visit. ALLERGIES Allergen Reactions - Bactrim [Sulfametho* Other: See Comments sore throat - Levaquin [Levofloxa* GI Upset PHYSICAL EXAMINATION: BP 134/76 (BP Site: Left Arm, BP Position: Sitting, BP Cuff Size: Large Adult) Pulse 60 Resp 14 Wt 94.8 kg (209 lb) SpO2 89% BMI 29.99 kg/m? General appearance: Well appearing, alert, uncomfortable, well-hydrated, well nourished. Skin: Skin color, texture, turgor normal, no suspicious rashes or lesions Head: Normocephalic, no masses, lesions, tenderness or abnormalities Eyes: Anicteric sclera. Extraocular movements are intact. Lungs: Lungs clear to auscultation. No wheezing, rhonchi, rales, Lungs clear to auscultation. No wheezing, rhonchi, rales Heart: RRR without murmur, gallop, or rubs. No ectopy Abdomen: Abdomen soft, non-tender. Bowel sounds normal. No masses, organomegaly. No bruits. Extremities: +2 RLE edema. No LLE edema. Some bilateral reddish/purplish discoloration of feet in the dependent position. Peripheral pulses: dp and pt pulses present via doppler. Neuro: Gait with difficulty. ASSESSMENT/PLAN: 1. Inferior vena cava thromboembolism (HCC) - ICD9: 453.2, ICD10: I82.220 Worsening right groin pain after being subtherapeutic with anticoagulation. Case discussed with PCP, Dr. Linares. Agreed that patient should return to ER for further eval/treat. Reports called to [facility]. Discussed treatment plan and patient voices understanding. Patient's questions answered appropriately. Medications and potential side effects were discussed and patient voices understanding. Return to the office as scheduled or as needed for worsening/no improvement. Jaymie Monae APRN.CHAIR CANER BASIC METABOLIC PANL Collected: 06/19/2018 Status: F Source: [place] 1:40 PM [facility] [place] REPOSITORY TYPE CODE TESTS RESULT OUT OF REFERENCE UNITS RANGE LAB GLU 74-99 mg/dL High Glucose 124 Result Comment: The [place] Diabetes Association (ADA) provides guidance for cutoff values for fasting glucose and random glucose. The ADA defines fasting as no caloric intake for at least 8 hours. Fas ting plasma glucose results between 100 to 125 mg/dL indicate increased risk for diabetes (prediabetes). Fasting plasma glucose results greater than or equal to 126 mg/dL meet the criteria for diagnosis of diabetes. In the absence of unequivocal hyperglycemia, results should be confirmed by repeat testing. In a patient with classic symptoms of hyperglycemia or hyperglycemic crisis, random plasma glucose results greater than or equal to 200 mg/dL meet the criteria for diagnosis of diabetes. Reference: Standards of Medical Care in Diabetes 2016, [place] Diabetes Association. Diabetes Care. 2016.39(Suppl 1). LAB BUN 9-24 mg/dL BUN 19 LAB CRET 0.73-1.22 mg/dL Creatinine High 1.42 LAB NA 136-144 mmol/L Sodium 138 LAB K 3.7-5.1 mmol/L Potassium 4.0 LAB CL 97-105 mmol/L Chloride 99 LAB CO2 22-30 mmol/L CO2 22 LAB AGAP 9-18 mmol/L Anion Gap 17 LAB CA 8.5-10.2 mg/dL Calcium, Total 9.8 LAB GFRAA eGFR- Amer. 60 LAB GFRNAA . eGFR-All Other Races 49 Result Comment: eGFR (Estimated GFR) Units of measure: mL/min/1.73 meters squared eGFR is derived from the reexpressed MDRD Study equation using the following parameters: serum creatinine, age, gender and race. The creatinine assay has been calibrated to be traceable to IDMS. An eGFR <60 mL/min/1.73m2 for >3 months is consistent with chronic kidney disease. Refer to KDOQI guidelines for clinical interpretation. In patients with unstable renal function, e.g. those with acute kidney injury, the eGFR may not accurately reflect actual GFR. Performed By: #### BMP #### [facility] [address] [place], [place] [address] PROTIME Collected: 06/19/2018 Status: F Source: [place] 1:40 PM [facility] REPOSITORY TYPE CODE TESTS RESULT OUT OF REFERENCE UNITS RANGE LAB PSEC 9.7-13.0 sec Test PT sent to [facility]. Result Comment: Account Credited HIDE LAB INR 0.9-1.3 Test sent to PT INR [facility]. Result Comment: Account Credited HIDE PROTHROMBIN TIME W/INR Collected: 06/19/2018 Status: F Source: [place] 1:38 PM [facility] REPOSITORY TYPE CODE TESTS RESULT OUT OF RANGE REFERENCE UNITS LAB L300.4150 11.7-14.9 SECONDS High PROTIME 17.2 LAB L300.4200 Normal INR 1.4 Performed By: #### L300.3900 #### [facility] [address] [place], [address] CASE MANAGEM Observed: 06/16/2018 Status: COMPLETED Source: [place] 11:41 AM [facility] OTHER CAMPUS REPOSITORY HNO ID: [id number] Author: Shana Amaro (Sw) Service: Care Management Author Type: Charge Lpn Type: Care Mgt Progress Note Filed: 06/16/2018 11:50 AM Note Text: CARE MANAGEMENT DISCHARGE NOTE SERVICE DATE: 06/16/2018 SERVICE TIME: 11:42 AM LOS: 6 days Admission Date: 06/10/2018 DISCHARGE ARRANGEMENT (list agency and phone number) Home Provider: n/a Phone: n/a CAREGIVER ASSESSMENT: Caregiver is ready, willing and able to meet the patient's needs as recommended by the inter-professional team? No Caregiver Needed Patient's transition needs and plan for meeting these needs: Pt returning home with supportive and no skilled needs. Does the patient have an acute stroke diagnosis, or has the patient had a stroke during this admission? No HANDOFF COMMUNICATION: Primary Care Physician: Herminio Linares TRANSPORTATION ARRANGEMENTS: Car via family. ADDITIONAL CONTACT RESOURCES: n/a Discharge Information Row Name ED to Hosp-Admission (Current) from 06/10/2018 in [facility] Medical Follow-Up Appointment Specialty PCP Provider Name Herminio Linares MD Address [address] [facility], [facility] [address] Appointment Date 06/21/18 Appointment Time 8:40am Additonal Instructions Patient should bring the following to appointment: Picture ID, Insurance Card, Copay (if applicable), Medications/Med List. Please provide a minimum of 24 hours' notice for cancelations/rescheduling. Please arrive 15 minutes prior to your appointment. D/c orders received for pt to return home with no skilled needs. William met with pt bedside to discuss d/c plan. Pt has 2 follow up appts scheduled for a blood draw on Tuesday and aPCP follow up appt on Tuesday. IM letter explained and copy given to pt. Pt agreeable with d/c and has transportation. Summary of care sent to PCP and Pooja PEREZ, Beverley Gómez NP, per pt request. SIGNATURE: MICHELLE López LSW PATIENT NAME: Jovani Holman DATE: June 16, 2018 MRN: [id number] TIME: 11:41 AM PAGER/CONTACT #: [phone] CNDS Observed: 06/16/2018 Status: COMPLETED Source: [place] 11:12 AM CLINIC OTHER CAMPUS REPOSITORY HNO ID: [id number] Author: Wanda Zavaleta Service: Hospital Medicine Author Type: Physician Type: Discharge Summaries Filed: 06/16/2018 11:15 AM Note Text: DISCHARGE SUMMARY PATIENT NAME: Jovani Holman ADMISSION DATE: 06/10/2018 MRN: [id number] DISCHARGE DATE: 06/16/2018 ATTENDING PHYSICIAN: Wanda Zavaleta Code Status: Not on file Highest Readmission Risk Score: 16 The 30 day readmissions risk score is derived from an internally validated risk model which evaluates patient level characteristics, utilization history, medication orders and lab results up until the day of discharge. Patients with a score of 40 or above are considered highest risk for readmission. Specific patient level drivers will be listed at the bottom of the summary. REASON FOR HOSPITALIZATION: symptomatic DVT extending to inferior cava filter but not beyond. 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 * OPERATIONS DURING HOSPITALIZATION: None PROCEDURES DURING HOSPITALIZATION: No procedures performed HOSPITAL COURSE: 67 yo man with hx of HTN BPH COPD DVT/PE, IVC filter, presenting with right inguinal pain for 2 weeks. Had imaging showing extensive clots below his IVC. He had been taking xarelto prior to admission for ~ 1 month. He was started on heparin to coumadin bridge because of lack of insurance coverage of other NOAC. He has been overlapped successfully and heparin discontinued but coumadin still being adjusted. Outpatient coumadin plan discussed below: REASON I WAS IN THE HOSPITAL: Right groin pain from progression of deep venous thrombosis. Xarelto suspected to not be working well enough. Started on coumadin. Most recent INR's of 3.3 on 06/15 and 3.2 on 06/16. Will need to see Dr. Linares's office at 1 pm in [place] to have INR checked and coumadin dose adjusted. Coumadin to be held over the weekend and only restarted once Dr. Linares's office has an INR check less than 3. Will most likely benefit from restarting coumadin at a dose intensity of 2.[address] Zavaleta and Dr. Linares communicated about the plan over telephone ~5 pm 06/15/[address] Linares to assume responsibility after patient leaves the hospital Transitions of Care Critical Issues: See above. Dr. Linares to check INR Tuesday and assume responsibility. Would restart coumadin at ~2.5 mg LABS AND PROCEDURES PENDING AT DISCHARGE: CONSULTING TEAMS DURING HOSPITALIZATION: None PATIENT CONDITION AT DISCHARGE: Stable DISCHARGE DISPOSITION: Home/Self Care Physical Exam Constitutional: He is oriented to person, place, and time. No distress. Cardiovascular: Normal rate. Pulmonary/Chest: Effort normal. Musculoskeletal: He exhibits edema (no sacral edema. has 1+ bilateral leg edema). Neurological: He is alert and oriented to person, place, and time. Skin: He is not diaphoretic. INFORMATION PROVIDED TO PATIENT: (To pull info documented from the DC Instruct Orderset Complete O/S First): see instructions DIET: Resume pre-hospital diet ACTIVITY: Resume pre-hospital activity WOUND/SURGICAL SITE CARE: None ALLERGIES Allergen Reactions - Bactrim [Sulfametho* Other: See Comments sore throat - Levaquin [Levofloxa* GI Upset DISCHARGE MEDICATION: Current Discharge Medication List CONTINUE these medications which have NOT CHANGED atorvastatin (LIPITOR) 20 mg Take 20 mg by mouth once daily. doxazosin (CARDURA) 8 mg Take 8 mg by mouth every evening. Qty: 30 tablet Refills: 11 hydroCHLOROthiazide (HYDRODIURIL, ESIDRIX) 25 mg Take 25 mg by mouth once daily. Qty: 30 tablet Refills: 11 Associated Diagnoses:Essential hypertension, benign omeprazole (PriLOSEC) 20 mg Take 20 mg by mouth daily before breakfast. 1/2 hr before meal. Qty: 30 capsule Refills: 11 aspirin, enteric coated (ASPIRIN, ENTERIC COATED) 81 mg Take 81 mg by mouth once daily. STOP taking these medications rivaroxaban (XARELTO) 15 mg Comments: Reason for Stopping: FUTURE APPOINTMENTS: Follow Up with PCP: Herminio Linares MD Discharge Information Row Name ED to Hosp-Admission (Current) from 06/10/2018 in [facility] Follow-Up Appointment Specialty PCP Provider Name Herminio Linares MD Address [address] [facility], [facility] [address] Appointment Date 06/21/18 Appointment Time 8:40am Additonal Instructions Patient should bring the following to appointment: Picture ID, Insurance Card, Copay (if applicable), Medications/Med List. Please provide a minimum of 24 hours' notice for cancelations/rescheduling. Please arrive 15 minutes prior to your appointment. The patient's risk for 30-day readmission is determined using the following contributing factors: Pt variables contributing to increased readmission risk: 17 Most Recent BUN Result 12 Active Medication Orders 9.7 First Resulted Calcium During Admission 1 Previous ED Visit (6 mos.)? 1 Number of Previous ED Visits (6 mos.) 1 Insurance - Medicare 1 Discharge Disposition - Home 1 History of COPD 1 Active Anticoagulant TIME OF CARE: Discharge Management: I personally spent greater than 30 minutes involved in the discharge management of this patient. SIGNATURE: Wanda Zavaleta MD PAGER/CONTACT #: [phone] DATE: June 16, 2018 TIME: 11:12 AM CBC Collected: 06/16/2018 Status: F Source: [place] 5:13 AM [facility] OTHER CAMPUS REPOSITORY TYPE CODE TESTS RESULT OUT OF REFERENCE UNITS RANGE LAB WBC 3.70-11.00 k/uL WBC 5.27 LAB RBC 4.20-6.00 m/uL Low RBC 4.16 LAB HGB 13.0-17.0 g/dL Hemoglobin 13.4 LAB HCT 39.0-51.0 % Hematocrit 40.9 LAB MCV 80.0-100.0 fL MCV 98.3 LAB MCH 26.0-34.0 pG MCH 32.2 LAB MCHC 30.5-36.0 g/dL MCHC 32.8 LAB RDWCV 11.5-15.0 % RDW-CV 13.5 LAB PLTCT 150-400 k/uL Platelet Count 190 LAB MPV 9.0-12.7 fL MPV 10.9 Performed By: #### CBC #### [facility] [address] [place] [address] PROTIME Collected: 06/16/2018 Status: F Source: [place] 5:13 AM [facility] OTHER CAMPUS REPOSITORY TYPE CODE TESTS RESULT OUT OF RANGE REFERENCE UNITS LAB PSEC 9.7-13.0 sec High PT Sec 30.1 LAB INR 0.9-1.3 High PT INR 3.2 Result Comment: Vitamin K Antagonist (VKA) Therapeutic Range: INR 2 to 3 (Target INR of 2.5) Note: For patients treated with VKA drugs, such as warfarin, the [place] [employer]icians 2012 Guideline recommends a therapeutic INR range of 2 to 3 (target INR of 2.5). This recommendation includes high-risk patients with antiphospholipid syndrome with previous arterial or venous thromboembolism, current-generation mechanical or bioprosthetic aortic heart valve replacement. Note: Patients with mechanical aortic valve replacement and additional risk factors for thromboembolic events (atrial fibrillation, previous thromboembolism, LV dysfunction, hypercoagulable conditions) or an older generation mechanical AVR (i.e., ball in-Cage) or any mechanical MVR should have a INR therapeutic range of 2.5 to 3.5 (target INR of 3). Nic GH, et al. Chest 2012, 141:7S-47S Andrzej RA, et al. [facility] 2017, 70: 252-289 Performed By: #### PT #### [facility] [address] [facility] [phone] CASE MANAGEM Observed: 06/15/2018 Status: COMPLETED Source: [place] 2:19 PM [facility] REPOSITORY HNO ID: [id number] Author: Ambar Chen) SHIMA Rider Service: Care Management Author Type: Registered Nurse Type: Care Mgt Progress Note Filed: 06/15/2018 2:25 PM Note Text: CARE MANAGEMENT PROGRESS NOTE SERVICE DATE: 06/15/2018 SERVICE TIME: 2:20 PM LOS: 5 days Needs Prior to Discharge: Other: See Comment (Set up Coumadin Clinic and MD to follow INR) Call placed to Dr. Linares's office in [place]; spoke to his nurse who will send him an urgent message to return call to Dr. Zavaleta about the Coumadin/INR follow-up; Nurse will call me back to schedule apptmt and plan of care for follow-up; will relay information to 2S case specialist. SIGNATURE: Ambar Rider RN [facility] PATIENT NAME: Jovani Holman DATE: June 15, 2018 MRN: [id number] TIME: 2:19 PM PAGER/CONTACT #: [phone] NUTRITION Observed: 06/15/2018 Status: COMPLETED Source: [place] 2:14 PM [facility] OTHER CAMPUS REPOSITORY HNO ID: [id number] Author: Lucy Mcdonald Service: Nutrition Therapy Author Type: Registered Dietitian Type: Nutrition Filed: 06/15/2018 2:16 PM Note Text: NUTRITION THERAPY NOTE SERVICE DATE: 06/15/2018 SERVICE TIME: 2:00 pm Anthropometrics: Height: 177.8 cm (5' 10) Current Weight: Weight: 94.7 kg (208 lb 12.4 oz) Body mass index is 29.96 kg/m?. Loss of lean body mass/visual muscle wasting: no Admitting Diagnosis: Inferior vena cava thromboembolism (HCC) [I82.220] Present Diet Order: Regular Is the patient having any pain that is interfering with oral/enteral intake? No Allergies: ALLERGIES Allergen Reactions - Bactrim [Sulfametho* Other: See Comments sore throat - Levaquin [Levofloxa* GI Upset Reason for Visit: Nutrition screen: LOS No recent weight loss. Appetite and intake are good. No problems chewing or swallowing. Progress notes and labs reviewed. Nursing Admission Assessment Malnutrition Score Tool: 0 Plan of Care: Recommendation No problems noted at this time. Will screen again within 7 days Discharge Plan: Regular diet MNT Billing Type: Initial Assess/15 min 2 units SIGNATURE: Lucy Mcdonald RD, DONALD PATIENT NAME: Jovani Holman DATE: June 15, 2018 MRN: [id number] TIME: 2:14 PM PAGER: PROGRESS Observed: 06/15/2018 Status: COMPLETED Source: [place] 12:13 PM CLINIC OTHER CAMPUS REPOSITORY HNO ID: [id number] Author: Wanda Zavaleta Service: Hospital Medicine Author Type: Physician Type: Progress Notes Filed: 06/15/2018 12:16 PM Note Text: DEPARTMENT OF HOSPITAL MEDICINE PROGRESS NOTE CC: f/u DVT HPI: no new symptoms. Review of Systems Respiratory: Negative for shortness of breath. Cardiovascular: Negative for chest pain. Gastrointestinal: Negative for abdominal pain. Exam: BP 125/84 Pulse 101 Temp 36.7 ?C (98.1 ?F) (Oral) Resp 18 Ht 177.8 cm (5' 10) Wt 94.7 kg (208 lb 12.4 oz) SpO2 96% BMI 29.96 kg/m? Physical Exam Constitutional: He is oriented to person, place, and time. No distress. Cardiovascular: Normal rate. Pulmonary/Chest: Effort normal. Musculoskeletal: He exhibits edema (no sacral edema. has 1+ bilateral leg edema). Neurological: He is alert and oriented to person, place, and time. Skin: He is not diaphoretic. Lines, Drains, and Airways Line Peripheral 06/13/18 1405 Short Right Hand 20 Gauge 1 day MEDICATIONS: Reviewed DATA: Diagnostic tests reviewed for today's visit: Most recent labs Assessment: 67 yo man with hx of HTN BPH COPD DVT/PE, IVC filter, presenting with right inguinal pain for 2 weeks. Had imaging showing extensive clots below his IVC. He had been taking xarelto prior to admission for ~ 1 month. He was started on heparin to coumadin bridge because of lack of insurance coverage of other NOAC. He has been overlapped successfully and heparin discontinued but coumadin still being adjusted. DC currently depends on PCP's ability to manage coumadin and I am awaiting a doctor-doctor callback from Dr. Linares. Improving Extensive DVT Anticoagulation on coumadin Stable HTN COPD BPH Left arm pain Plan: -INR >3 so coumadin discontinued. Will likely restart at 2.5 mg dosage once <3. ->48 hrs overlap of coumadin to heparin so heparin stopped -awaiting callback from Dr. Linares's office to determine his ability to check INR's and frequency of checks to determine a safe discharge plan. -continue other meds as ordered. No new changes. VTE Prophylaxis: heparin ->coumadin Plan of care discussed with: Patient and RN SIGNATURE: Wanda Zavaleta MD PATIENT NAME: Jovani Holman DATE: June 12, 2018 MRN: [id number] TIME: 4:24 PM Work Cell #: [phone] SERVICE DATE: 06/12/2018 SERVICE TIME: 4:24 PM Hospital Medicine/Primary Attending: Wanda Zavaleta MD NIGHT AND WEEKEND COVERAGE: Nights: Please contact pager [phone]. NURSING PROG Observed: 06/15/2018 Status: COMPLETED Source: [place] 6:54 AM CLINIC OTHER CAMPUS REPOSITORY O ID: [id number] Author: Abigail (Rn) SHIMA Arreguin Service: (none) Author Type: Registered Nurse Type: Nursing Progress Note Filed: 06/15/2018 6:55 AM Note Text: Nursing Progress Note Patient Name: Jovani Holman MRN: [id number] Patient Location: [facility]2S-[id number] Daily Note: 0652: Hospitalist paged regarding patients aPTT of >139 this AM. Waiting for paged to be returned. This note was completed by: Abigail Arreguin RN CBC Collected: 06/15/2018 Status: F Source: [place] 6:01 [facility] OTHER CAMPUS REPOSITORY TYPE CODE TESTS RESULT OUT OF REFERENCE UNITS RANGE LAB WBC 3.70-11.00 k/uL WBC 6.47 LAB RBC 4.20-6.00 m/uL Low RBC 4.14 LAB HGB 13.0-17.0 g/dL Hemoglobin 13.4 LAB HCT 39.0-51.0 % Hematocrit 40.4 LAB MCV 80.0-100.0 fL MCV 97.6 LAB MCH 26.0-34.0 pG MCH 32.4 LAB MCHC 30.5-36.0 g/dL MCHC 33.2 LAB RDWCV 11.5-15.0 % RDW-CV 13.2 LAB PLTCT 150-400 k/uL Platelet Count 186 LAB MPV 9.0-12.7 fL MPV 11.1 Performed By: #### CBC #### [facility] [address] [place] [address] PROTIME Collected: 06/15/2018 Status: F Source: [place] 6:01 [facility] OTHER [place] REPOSITORY TYPE CODE TESTS RESULT OUT OF RANGE REFERENCE UNITS LAB PSEC 9.7-13.0 sec High PT Sec 31.3 LAB INR 0.9-1.3 High PT INR 3.3 Result Comment: Vitamin K Antagonist (VKA) Therapeutic Range: INR 2 to 3 (Target INR of 2.5) Note: For patients treated with VKA drugs, such as warfarin, the [place] [employer]icians 2012 Guideline recommends a therapeutic INR range of 2 to 3 (target INR of 2.5). This recommendation includes high-risk patients with antiphospholipid syndrome with previous arterial or venous thromboembolism, current-generation mechanical or bioprosthetic aortic heart valve replacement. Note: Patients with mechanical aortic valve replacement and additional risk factors for thromboembolic events (atrial fibrillation, previous thromboembolism, LV dysfunction, hypercoagulable conditions) or an older generation mechanical AVR (i.e., ball in-Cage) or any mechanical MVR should have a INR therapeutic range of 2.5 to 3.5 (target INR of 3). Nic GH, et al. Chest 2012, 141:7S-47S Andrzej RA, et al. JACC 2017, 70: 252-289 Performed By: #### PT, PTTAC #### [facility] [address] [place] [address] PTT,ANTICOAG THERAPY Collected: 06/15/2018 Status: F Source: [place] 6:01 AM [facility] REPOSITORY TYPE CODE TESTS RESULT OUT OF RANGE REFERENCE UNITS LAB APTT 23.0-32.4 sec High APTT >139.0 Result Comment: Unfractionated Heparin Therapeutic Ranges: Standard Heparin Nomogram: 53 to 78 seconds (anti-Xa level of 0.3 to 0.7 U/ml) Low Dose/ACS Nomogram: 49 to 67 seconds (anti-Xa level of 0.2 to 0.5 U/ml) Stroke Treatment Nomogram: 49 to 67 seconds (anti-Xa level of 0.2 to 0.5 U/ml) Note: The APTT therapeutic range has been determined for the current lot of laboratory APTT reagent in use throughout the [facility]. Called to and read back by: Sania Chicas [address] [place] [address] 06/15/18 0723 Dada Saba Performed By: #### PT, PTTAC #### [facility] [address] [place] [address] NURSING PROG Observed: 06/14/2018 Status: COMPLETED Source: [place] 8:30 AM [facility] REPOSITORY HNO ID: [id number] Author: Michelle Subramanian (Rn) SHIMA Alegre Service: (none) Author Type: Registered Nurse Type: Nursing Progress Note Filed: 06/14/2018 8:38 AM Note Text: Nursing Progress Note Patient Name: Jovani Holman MRN: [id number] Patient Location: [facility]-0221/[id number] Daily Note: Dr. Zavaleta requested pharm. Input regarding Coumadin dosage. Pharmacy called to inquire about Coumadin decrease dosage recommended. Info given to Dr. Zavaleta. Dr. Zavaleta stated he intended to bridge to with the cont. Heparin for approx. Two days. Pharmacist stated that recommendation of 5mg or 2.5 mg if physic. Wanted to be conserative since INR had a marked jump. Info. Given to doc.Dr. Zavaleta modified Coumadin dosage to 2.5mg. This note was completed by: Michelle Alegre RN PROGRESS Observed: 06/14/2018 Status: COMPLETED Source: [place] 8:29 AM CLINIC OTHER CAMPUS REPOSITORY HNO ID: [id number] Author: Wanda Zavaleta Service: Hospital Medicine Author Type: Physician Type: Progress Notes Filed: 06/14/2018 8:38 AM Note Text: DEPARTMENT OF HOSPITAL MEDICINE PROGRESS NOTE CC: f/u DVT HPI: patient reports left arm pain that started yesterday. It is mostly in his thumb area and constant. Review of Systems Respiratory: Negative for shortness of breath. Cardiovascular: Negative for chest pain. Gastrointestinal: Negative for abdominal pain. Exam: BP 124/68 Pulse 82 Temp 36.5 ?C (97.7 ?F) (Oral) Resp 18 Ht 177.8 cm (5' 10) Wt 93.8 kg (206 lb 14.4 oz) SpO2 95% BMI 29.69 kg/m? Physical Exam Constitutional: He is oriented to person, place, and time. No distress. Cardiovascular: Normal rate. Pulmonary/Chest: Effort normal. Musculoskeletal: He exhibits edema (no sacral edema. has 1+ bilateral leg edema). Neurological: He is alert and oriented to person, place, and time. Skin: He is not diaphoretic. Lines, Drains, and Airways Line Peripheral 06/13/18 1405 Short Right Hand 20 Gauge less than 1 day MEDICATIONS: Reviewed DATA: Diagnostic tests reviewed for today's visit: Most recent labs Assessment: 67 yo man with hx of HTN BPH COPD DVT/PE, IVC filter, presenting with right inguinal pain for 2 weeks. Had imaging showing extensive clots below his IVC. He had been taking xarelto prior to admission for ~ 1 month. He was started on heparin to coumadin bridge because of lack of insurance coverage of other NOAC. Will continue modifying dose every 48 hrs until therapeutic. Improving Extensive DVT Anticoagulation on coumadin Stable HTN COPD BPH Left arm pain Plan: -no cellulitis or cord seen on left arm. Distribution almost matches radial nerve. Will trial gabapentin. -continue heparin to coumadin bridge. Every 48 hrs will adjust dose. Will use coumadin 2.5 mg tonight. Once therapeutic for 24-48 hrs on overlap, can be discharged. -continue other meds as ordered. No new changes VTE Prophylaxis: heparin ->coumadin Plan of care discussed with: Patient and RN SIGNATURE: Wanda Zavaleta MD PATIENT NAME: Jovani Holman DATE: June 12, 2018 MRN: [id number] TIME: 4:24 PM Work Cell #: [phone] SERVICE DATE: 06/12/2018 SERVICE TIME: 4:24 PM Hospital Medicine/Primary Attending: Wanda Zavaleta MD NIGHT AND WEEKEND COVERAGE: Nights: Please contact pager [phone]. CBC Collected: 06/14/2018 Status: F Source: [place] 5:05 AM [facility] OTHER CAMPUS REPOSITORY TYPE CODE TESTS RESULT OUT OF REFERENCE UNITS RANGE LAB WBC 3.70-11.00 k/uL WBC 5.97 LAB RBC 4.20-6.00 m/uL Low RBC 3.95 LAB HGB 13.0-17.0 g/dL Hemoglobin 13.0 LAB HCT 39.0-51.0 % Low Hematocrit 38.7 LAB MCV 80.0-100.0 fL MCV 98.0 LAB MCH 26.0-34.0 pG MCH 32.9 LAB MCHC 30.5-36.0 g/dL MCHC 33.6 LAB RDWCV 11.5-15.0 % RDW-CV 13.2 LAB PLTCT 150-400 k/uL Platelet Count 193 LAB MPV 9.0-12.7 fL MPV 11.3 Performed By: #### CBC #### [facility] [address] [facility] [phone] PROTIME Collected: 06/14/2018 Status: F Source: [place] 5:05 AM [facility] OTHER CAMPUS REPOSITORY TYPE CODE TESTS RESULT OUT OF RANGE REFERENCE UNITS LAB PSEC 9.7-13.0 sec High PT Sec 21.9 LAB INR 0.9-1.3 High PT INR 2.3 Result Comment: Vitamin K Antagonist (VKA) Therapeutic Range: INR 2 to 3 (Target INR of 2.5) Note: For patients treated with VKA drugs, such as warfarin, the [place] [employer] 2012 Guideline recommends a therapeutic INR range of 2 to 3 (target INR of 2.5). This recommendation includes high-risk patients with antiphospholipid syndrome with previous arterial or venous thromboembolism, current-generation mechanical or bioprosthetic aortic heart valve replacement. Note: Patients with mechanical aortic valve replacement and additional risk factors for thromboembolic events (atrial fibrillation, previous thromboembolism, LV dysfunction, hypercoagulable conditions) or an older generation mechanical AVR (i.e., ball in-Cage) or any mechanical MVR should have a INR therapeutic range of 2.5 to 3.5 (target INR of 3). Nic GH, et al. Chest 2012, 141:7S-47S Andrzej RA, et al. [facility] 2017, 70: 252-289 Performed By: #### PT, PTTAC #### [facility] [address] [place] [address] PTT,ANTICOAG THERAPY Collected: 06/14/2018 Status: F Source: [place] 5:05 AM [facility] REPOSITORY TYPE CODE TESTS RESULT OUT OF RANGE REFERENCE UNITS LAB APTT 23.0-32.4 sec High APTT 73.7 Result Comment: Unfractionated Heparin Therapeutic Ranges: Standard Heparin Nomogram: 53 to 78 seconds (anti-Xa level of 0.3 to 0.7 U/ml) Low Dose/ACS Nomogram: 49 to 67 seconds (anti-Xa level of 0.2 to 0.5 U/ml) Stroke Treatment Nomogram: 49 to 67 seconds (anti-Xa level of 0.2 to 0.5 U/ml) Note: The APTT therapeutic range has been determined for the current lot of laboratory APTT reagent in use throughout the [facility]. Performed By: #### PT, PTTAC #### [facility] [address] [place] [address] NURSING PROG Observed: 06/13/2018 Status: COMPLETED Source: [place] 8:03 PM [facility] REPOSITORY HNO ID: [id number] Author: Nicole (Rn) SHIMA Huddleston Service: Nursing Author Type: Registered Nurse Type: Nursing Progress Note Filed: 06/13/2018 8:15 PM Note Text: Nursing Progress Note Patient Name: Jovani Holman MRN: [id number] Patient Location: [facility] [place]-[id number] Daily Note:1400 Pt c/o exquisite tenderness of left forearm; ertehema of arm noted above elbow also.Rates aL arm pain 04/14. IV site appears WNL, but removed per pt request. New IV started in R hand for heparin gtt(remains at 1400 u/hr). Text message to Dr. Zavaleta to report arm c/o. Orders for pain medication received/no imaging ordered. Cold and pillow support to L arm. See pain assessment and reasesment flow sheets. IV Dilaudid 0.5 mg given and tylenol 1000 mg given 90 min later. Pt now reports arm pain down to 2/10. This note was completed by: Nicole Huddleston RN PROGRESS Observed: 06/13/2018 Status: COMPLETED Source: [place] 2:24 PM [facility] OTHER CAMPUS REPOSITORY HNO ID: [id number] Author: Wanda Zavaleta Service: Hospital Medicine Author Type: Physician Type: Progress Notes Filed: 06/13/2018 2:25 PM Note Text: DEPARTMENT OF HOSPITAL MEDICINE PROGRESS NOTE CC: f/u DVT HPI: patient has no new symptoms. Review of Systems Respiratory: Negative for shortness of breath. Cardiovascular: Negative for chest pain. Gastrointestinal: Negative for abdominal pain. Exam: BP 142/85 Pulse 82 Temp 36.6 ?C (97.9 ?F) (Oral) Resp 18 Ht 177.8 cm (5' 10) Wt 93.8 kg (206 lb 14.4 oz) SpO2 95% BMI 29.69 kg/m? Physical Exam Constitutional: He is oriented to person, place, and time. No distress. Cardiovascular: Normal rate. Pulmonary/Chest: Effort normal. Musculoskeletal: He exhibits edema (no sacral edema. has 1+ bilateral leg edema). Neurological: He is alert and oriented to person, place, and time. Skin: He is not diaphoretic. Lines, Drains, and Airways Line Peripheral 06/13/18 1405 Short Right Hand 20 Gauge less than 1 day MEDICATIONS: Reviewed DATA: Diagnostic tests reviewed for today's visit: Most recent labs Assessment: 67 yo man with hx of HTN BPH COPD DVT/PE, IVC filter, presenting with right inguinal pain for 2 weeks. Had imaging showing extensive clots below his IVC. He had been taking xarelto prior to admission for ~ 1 month. He was started on heparin to coumadin bridge because of lack of insurance coverage of other NOAC. Will continue modifying dose every 48 hrs until therapeutic. Improving Extensive DVT Anticoagulation on coumadin Stable HTN COPD BPH Plan: -continue heparin to coumadin bridge. Every 48 hrs will adjust dose. Will use coumadin 7.5 mg tonight. Once therapeutic for 24-48 hrs on overlap, can be discharged. -continue other meds as ordered. No new changes VTE Prophylaxis: heparin ->coumadin Plan of care discussed with: Patient and RN SIGNATURE: Wanda Zavaleta MD PATIENT NAME: Jovani Holman DATE: June 12, 2018 MRN: [id number] TIME: 4:24 PM Work Cell #: [phone] SERVICE DATE: 06/12/2018 SERVICE TIME: 4:24 PM Hospital Medicine/Primary Attending: Wanda Zavaleta MD NIGHT AND WEEKEND COVERAGE: Nights: Please contact pager [phone]. CASE MANAGEM Observed: 06/13/2018 Status: COMPLETED Source: [place] 9:32 AM [facility] OTHER [place] REPOSITORY HNO ID: [id number] Author: Shana Amaro (Sw) Service: Care Management Author Type: Charge Lpn Type: Care Mgt Progress Note Filed: 06/13/2018 9:36 AM Note Text: CARE MANAGEMENT PROGRESS NOTE SERVICE DATE: 06/13/2018 SERVICE TIME: 9:32 AM LOS: 3 days Needs Prior to Discharge: To Be Determined Sw reviewed EMR. Pt bridging from Heparin to Coumadin. INR 1.3 today. Per attending note, will keep pt until therapeutic. Anticipate d/c home with no skilled needs. CM will continue to follow for d/c planning. SIGNATURE: MICHELLE López, ENGINEER SYSTEM[employer] PATIENT NAME: Jovani Holman DATE: June 13, 2018 MRN: [id number] TIME: 9:32 AM PAGER/CONTACT #: [phone] CBC Collected: 06/13/2018 Status: F Source: [place] 7:04 AM [facility] OTHER CAMPUS REPOSITORY TYPE CODE TESTS RESULT OUT OF REFERENCE UNITS RANGE LAB WBC 3.70-11.00 k/uL WBC 6.54 LAB RBC 4.20-6.00 m/uL RBC 4.34 LAB HGB 13.0-17.0 g/dL Hemoglobin 14.1 LAB HCT 39.0-51.0 % Hematocrit 42.4 LAB MCV 80.0-100.0 fL MCV 97.7 LAB MCH 26.0-34.0 pG MCH 32.5 LAB MCHC 30.5-36.0 g/dL MCHC 33.3 LAB RDWCV 11.5-15.0 % RDW-CV 13.5 LAB PLTCT 150-400 k/uL Platelet Count 199 LAB MPV 9.0-12.7 fL MPV 11.2 Performed By: #### CBC, PT, PTTAC, BMP #### [facility] [address] [place] [address] PROTIME Collected: 06/13/2018 Status: F Source: [place] 7:04 AM [facility] OTHER [place] REPOSITORY TYPE CODE TESTS RESULT OUT OF RANGE REFERENCE UNITS LAB PSEC 9.7-13.0 sec PT Sec 13.0 LAB INR 0.9-1.3 PT INR 1.3 Result Comment: Vitamin K Antagonist (VKA) Therapeutic Range: INR 2 to 3 (Target INR of 2.5) Note: For patients treated with VKA drugs, such as warfarin, the [place] [employer] 2012 Guideline recommends a therapeutic INR range of 2 to 3 (target INR of 2.5). This recommendation includes high-risk patients with antiphospholipid syndrome with previous arterial or venous thromboembolism, current-generation mechanical or bioprosthetic aortic heart valve replacement. Note: Patients with mechanical aortic valve replacement and additional risk factors for thromboembolic events (atrial fibrillation, previous thromboembolism, LV dysfunction, hypercoagulable conditions) or an older generation mechanical AVR (i.e., ball in-Cage) or any mechanical MVR should have a INR therapeutic range of 2.5 to 3.5 (target INR of 3). Nic GH, et al. Chest 2012, 141:7S-47S Andrzej RA et al. [facility] 2017, 70: 252-289 Performed By: #### CBC, PT, PTTAC, BMP #### [facility] [address] [place] [address] PTT,ANTICOAG THERAPY Collected: 06/13/2018 Status: F Source: [place] 7:04 AM [facility] OTHER [place] REPOSITORY TYPE CODE TESTS RESULT OUT OF RANGE REFERENCE UNITS LAB APTT 23.0-32.4 sec High APTT 74.9 Result Comment: Unfractionated Heparin Therapeutic Ranges: Standard Heparin Nomogram: 53 to 78 seconds (anti-Xa level of 0.3 to 0.7 U/ml) Low Dose/ACS Nomogram: 49 to 67 seconds (anti-Xa level of 0.2 to 0.5 U/ml) Stroke Treatment Nomogram: 49 to 67 seconds (anti-Xa level of 0.2 to 0.5 U/ml) Note: The APTT therapeutic range has been determined for the current lot of laboratory APTT reagent in use throughout the [facility]. Performed By: #### CBC, PT, PTTAC, BMP #### [facility] [address] [facility] [phone] BASIC METABOLIC PANL Collected: 06/13/2018 Status: F Source: [place] 7:04 AM [facility] OTHER CAMPUS REPOSITORY TYPE CODE TESTS RESULT OUT OF REFERENCE UNITS RANGE LAB GLU 74-99 mg/dL Glucose 92 Result Comment: The [place] [employer] (ADA) provides guidance for cutoff values for fasting glucose and random glucose. The ADA defines fasting as no caloric intake for at least 8 hours. Fas ting plasma glucose results between 100 to 125 mg/dL indicate increased risk for diabetes (prediabetes). Fasting plasma glucose results greater than or equal to 126 mg/dL meet the criteria for diagnosis of diabetes. In the absence of unequivocal hyperglycemia, results should be confirmed by repeat testing. In a patient with classic symptoms of hyperglycemia or hyperglycemic crisis, random plasma glucose results greater than or equal to 200 mg/dL meet the criteria for diagnosis of diabetes. Reference: Standards of Medical Care in Diabetes 2016, [place] [employer]. Diabetes Care. 2016.39(Suppl 1). LAB BUN 9-24 mg/dL BUN 17 LAB CRET 0.73-1.22 mg/dL Creatinine High 1.25 LAB NA 136-144 mmol/L Sodium 141 LAB K 3.7-5.1 mmol/L Potassium 3.8 LAB CL 97-105 mmol/L Chloride 103 LAB CO2 22-30 mmol/L CO2 24 LAB AGAP 9-18 mmol/L Anion Gap 14 LAB CA 8.5-10.2 mg/dL Calcium, Total 9.8 LAB GFRAA eGFR- Amer. >60 LAB GFRNAA . eGFR-All Other Races 57 Result Comment: eGFR (Estimated GFR) Units of measure: mL/min/1.73 meters squared eGFR is derived from the reexpressed MDRD Study equation using the following parameters: serum creatinine, age, gender and race. The creatinine assay has been calibrated to be traceable to IDMO. An eGFR <60 mL/min/1.73m2 for >3 months is consistent with chronic kidney disease. Refer to KDOQI guidelines for clinical interpretation. In patients with unstable renal function, e.g. those with acute kidney injury, the eGFR may not accurately reflect actual GFR. Performed By: #### CBC, PT, PTTAC, BMP #### [facility] [address] [place] [address] PTT,ANTICOAG THERAPY Collected: 06/13/2018 Status: F Source: [place] 12:15 AM [facility] REPOSITORY TYPE CODE TESTS RESULT OUT OF RANGE REFERENCE UNITS LAB APTT 23.0-32.4 sec High APTT 72.4 Result Comment: Unfractionated Heparin Therapeutic Ranges: Standard Heparin Nomogram: 53 to 78 seconds (anti-Xa level of 0.3 to 0.7 U/ml) Low Dose/ACS Nomogram: 49 to 67 seconds (anti-Xa level of 0.2 to 0.5 U/ml) Stroke Treatment Nomogram: 49 to 67 seconds (anti-Xa level of 0.2 to 0.5 U/ml) Note: The APTT therapeutic range has been determined for the current lot of laboratory APTT reagent in use throughout the [facility]. Performed By: #### PTTAC #### [facility] [address] [place] [address] PTT,ANTICOAG THERAPY Collected: 06/12/2018 Status: F Source: [place] 5:58 PM [facility] REPOSITORY TYPE CODE TESTS RESULT OUT OF RANGE REFERENCE UNITS LAB APTT 23.0-32.4 sec High APTT 49.5 Result Comment: Unfractionated Heparin Therapeutic Ranges: Standard Heparin Nomogram: 53 to 78 seconds (anti-Xa level of 0.3 to 0.7 U/ml) Low Dose/ACS Nomogram: 49 to 67 seconds (anti-Xa level of 0.2 to 0.5 U/ml) Stroke Treatment Nomogram: 49 to 67 seconds (anti-Xa level of 0.2 to 0.5 U/ml) Note: The APTT therapeutic range has been determined for the current lot of laboratory APTT reagent in use throughout the [facility]. Performed By: #### PTTAC #### [facility] [address] [place] [address] PROGRESS Observed: 06/12/2018 Status: COMPLETED Source: [place] 4:24 PM [facility] OTHER CAMPUS REPOSITORY HNO ID: [id number] Author: Wanda Zavaleta Service: Hospital Medicine Author Type: Physician Type: Progress Notes Filed: 06/12/2018 4:29 PM Note Text: DEPARTMENT OF HOSPITAL MEDICINE PROGRESS NOTE CC: f/u DVT HPI: patient has no new symptoms. Review of Systems Respiratory: Negative for shortness of breath. Cardiovascular: Negative for chest pain. Gastrointestinal: Negative for abdominal pain. Exam: BP 138/60 Pulse 82 Temp 36.4 ?C (97.5 ?F) (Oral) Resp 20 Ht 177.8 cm (5' 10) Wt 93.8 kg (206 lb 14.4 oz) SpO2 94% BMI 29.69 kg/m? Physical Exam Constitutional: He is oriented to person, place, and time. No distress. Cardiovascular: Normal rate. Pulmonary/Chest: Effort normal. Musculoskeletal: He exhibits edema (no sacral edema. has 1+ bilateral leg edema). Neurological: He is alert and oriented to person, place, and time. Skin: He is not diaphoretic. Lines, Drains, and Airways Line Peripheral 06/10/18 1215 Antecubital 20 Gauge 2 days MEDICATIONS: Reviewed DATA: Diagnostic tests reviewed for today's visit: Most recent labs Assessment: 67 yo man with hx of HTN BPH COPD DVT/PE, IVC filter, presenting with right inguinal pain for 2 weeks. Had imaging showing extensive clots below his IVC. He had been taking xarelto prior to admission for ~ 1 month. He was started on heparin to coumadin bridge because of lack of insurance coverage of other NOAC. Improving Extensive DVT Anticoagulation on coumadin Stable HTN COPD BPH Plan: -continue heparin to coumadin bridge. Every 48 hrs will adjust dose. Will use coumadin 5 mg tonight. Once therapeutic for 24-48 hrs on overlap, can be discharged. -continue other meds as ordered. No new changes VTE Prophylaxis: heparin ->coumadin Plan of care discussed with: Patient and RN SIGNATURE: Wanda Zavaleta MD PATIENT NAME: Jovani Holman DATE: June 12, 2018 MRN: [id number] TIME: 4:24 PM Work Cell #: [phone] SERVICE DATE: 06/12/2018 SERVICE TIME: 4:24 PM Hospital Medicine/Primary Attending: Wanda Zavaleta MD NIGHT AND WEEKEND COVERAGE: Nights: Please contact pager [phone]. PT ED Observed: 06/12/2018 Status: COMPLETED Source: [place] 2:30 PM [facility] OTHER CAMPUS REPOSITORY [facility] ID: [id number] Author: Rehan Hairston (Pharmacist) Service: Pharmacy Author Type: Pharmacist Type: Patient Education Filed: 06/12/2018 3:28 PM Note Text: PHARMACY WARFARIN EDUCATION Patient Name: Jovani Holman Account #: Data Unavailable MRN: [id number] Admission Date: 06/10/2018 11:31 AM Date of Contact: June 12, 2018 Time of Contact: 2:30 PM Patient new to warfarin? Yes Outpatient follow-up plan: Other: To be determined Indication for warfarin: deep vein thrombosis (DVT) Target INR range: 2.0 - 3.0 (Target 2.5) Patient received full warfarin education. Initial patient education included: * Reason for taking warfarin * What the INR test is, frequency of testing, and the importance of monitoring warfarin with scheduled PT/INR blood draws or finger sticks * Drug interactions (Rx, OTC, herbal) and importance of notifying the doctor/anticoagulation clinic with any changes. * Do not take or discontinue any medication or over the counter medication except on the advice of the physician or pharmacist because certain medications can affect the PT/INR. * Potential duration of therapy * Signs/symptoms of bleeding and what to do if they occur because warfarin increases the risk of bleeding * Precautionary measures to decrease trauma/bleeding * Signs/symptoms of thrombosis and what to do if they occur * Dietary considerations discussing that a ?consistent amount? of foods with vitamin K rather than avoidances should be advised and to avoid major changes in dietary habits, or notify health professional before changing habits because diet can affect the PT/INR * Carrying identification * Importance of notifying healthcare provider and [facility] when hospitalizations occur and when another healthcare provider has asked them to stop/hold warfarin before any procedure * Importance of notifying all healthcare providers they are taking warfarin The patient was provided ?Understanding the Anticoagulant Medication Warfarin? education booklet which includes the following : compliance Issues, dietary advice, follow-up with physician, follow- up monitoring, potential adverse drug reactions and interactions. READINESS TO LEARN COGNITIVE ABILITY: Alert and oriented MOTIVATION TO LEARN: Interested FAMILY SUPPORT: High - Very involved in pt care INSTRUCTION PROVIDED TO: Patient and family member PATIENT LEARNS BEST BY: Unable to Assess FACTORS AFFECTING LEARNING: Unable to assess PHYSICAL LIMITATIONS AFFECTING LEARNING: None LEARNING RESPONSE DIAGNOSIS: SEE INDICATION(S) ABOVE PATIENT/FAMILY RESPONSE: Verbalizes understanding of: The signs and symptoms of a worsening condition that warrant a call to the physician. The correct actions to take to manage symptoms associated with his/her disease/illness. Accurate knowledge of prescribed medication prior to discharge. The side effects associated with the medication that warrant a call to the physician. Diet / weight monitoring METHOD OF INSTRUCTION: Written instruction - handouts Verbal instruction SUPPLEMENTAL MATERIAL PROVIDED: Warfarin booklet: FURTHER RECOMMENDATIONS (if any) N/A EVIDENCE OF LEARNING Outcomes met: Indicates understanding of topic Outcomes not met: N/A Outpatient Follow-up: To be determined Vladimir Zapata (Director [employer]) I concur with counseling provided by pharmacy resource tech. The progress note reflects my input and comments. Rehan Hairston, PharmD Clinical Pharmacist PTT,ANTICOAG THERAPY Collected: 06/12/2018 Status: F Source: [place] 11:16 AM [facility] OTHER [place] REPOSITORY TYPE CODE TESTS RESULT OUT OF RANGE REFERENCE UNITS LAB APTT 23.0-32.4 sec High APTT 66.0 Result Comment: Unfractionated Heparin Therapeutic Ranges: Standard Heparin Nomogram: 53 to 78 seconds (anti-Xa level of 0.3 to 0.7 U/ml) Low Dose/ACS Nomogram: 49 to 67 seconds (anti-Xa level of 0.2 to 0.5 U/ml) Stroke Treatment Nomogram: 49 to 67 seconds (anti-Xa level of 0.2 to 0.5 U/ml) Note: The APTT therapeutic range has been determined for the current lot of laboratory APTT reagent in use throughout the [facility]. Performed By: #### PTTAC #### [facility] [address] [place] [address] CBC Collected: 06/12/2018 Status: F Source: [place] 4:26 AM [facility] OTHER [place] REPOSITORY TYPE CODE TESTS RESULT OUT OF REFERENCE UNITS RANGE LAB WBC 3.70-11.00 k/uL WBC 6.44 LAB RBC 4.20-6.00 m/uL Low RBC 3.95 LAB HGB 13.0-17.0 g/dL Hemoglobin 13.0 LAB HCT 39.0-51.0 % Hematocrit 39.0 LAB MCV 80.0-100.0 fL MCV 98.7 LAB MCH 26.0-34.0 pG MCH 32.9 LAB MCHC 30.5-36.0 g/dL MCHC 33.3 LAB RDWCV 11.5-15.0 % RDW-CV 13.3 LAB PLTCT 150-400 k/uL Platelet Count 193 LAB MPV 9.0-12.7 fL MPV 10.9 Performed By: #### CBC, PT, PTTAC, BMP #### [facility] [address] [facility] [phone] PROTIME Collected: 06/12/2018 Status: F Source: [place] 4:26 AM [facility] OTHER CAMPUS REPOSITORY TYPE CODE TESTS RESULT OUT OF RANGE REFERENCE UNITS LAB PSEC 9.7-13.0 sec PT Sec 11.4 LAB INR 0.9-1.3 PT INR 1.1 Result Comment: Vitamin K Antagonist (VKA) Therapeutic Range: INR 2 to 3 (Target INR of 2.5) Note: For patients treated with VKA drugs, such as warfarin, the [place] [employer] 2012 Guideline recommends a therapeutic INR range of 2 to 3 (target INR of 2.5). This recommendation includes high-risk patients with antiphospholipid syndrome with previous arterial or venous thromboembolism, current-generation mechanical or bioprosthetic aortic heart valve replacement. Note: Patients with mechanical aortic valve replacement and additional risk factors for thromboembolic events (atrial fibrillation, previous thromboembolism, LV dysfunction, hypercoagulable conditions) or an older generation mechanical AVR (i.e., ball in-Cage) or any mechanical MVR should have a INR therapeutic range of 2.5 to 3.5 (target INR of 3). Nic GH, et al. Chest 2012, 141:7S-47S Andrzej RA, et al. [facility] 2017, 70: 252-289 Performed By: #### CBC, PT, PTTAC, BMP #### [facility] [address] [place] [address] PTT,ANTICOAG THERAPY Collected: 06/12/2018 Status: F Source: [place] 4:26 AM [facility] OTHER [place] REPOSITORY TYPE CODE TESTS RESULT OUT OF RANGE REFERENCE UNITS LAB APTT 23.0-32.4 sec High APTT 83.5 Result Comment: Unfractionated Heparin Therapeutic Ranges: Standard Heparin Nomogram: 53 to 78 seconds (anti-Xa level of 0.3 to 0.7 U/ml) Low Dose/ACS Nomogram: 49 to 67 seconds (anti-Xa level of 0.2 to 0.5 U/ml) Stroke Treatment Nomogram: 49 to 67 seconds (anti-Xa level of 0.2 to 0.5 U/ml) Note: The APTT therapeutic range has been determined for the current lot of laboratory APTT reagent in use throughout the [facility]. Performed By: #### CBC, PT, PTTAC, BMP #### [facility] [address] [facility] [phone] BASIC METABOLIC PANL Collected: 06/12/2018 Status: F Source: [place] 4:26 AM CLINIC OTHER CAMPUS REPOSITORY TYPE CODE TESTS RESULT OUT OF REFERENCE UNITS RANGE LAB GLU 74-99 mg/dL Glucose 96 Result Comment: The [place] Diabetes [employer] (ADA) provides guidance for cutoff values for fasting glucose and random glucose. The ADA defines fasting as no caloric intake for at least 8 hours. Fas ting plasma glucose results between 100 to 125 mg/dL indicate increased risk for diabetes (prediabetes). Fasting plasma glucose results greater than or equal to 126 mg/dL meet the criteria for diagnosis of diabetes. In the absence of unequivocal hyperglycemia, results should be confirmed by repeat testing. In a patient with classic symptoms of hyperglycemia or hyperglycemic crisis, random plasma glucose results greater than or equal to 200 mg/dL meet the criteria for diagnosis of diabetes. Reference: Standards of Medical Care in Diabetes 2016, [place] [employer]. Diabetes Care. 2016.39(Suppl 1). LAB BUN 9-24 mg/dL BUN 15 LAB CRET 0.73-1.22 mg/dL Creatinine High 1.23 LAB NA 136-144 mmol/L Sodium 141 LAB K 3.7-5.1 mmol/L Low Potassium 3.6 LAB CL 97-105 mmol/L Chloride 103 LAB CO2 22-30 mmol/L CO2 27 LAB AGAP 9-18 mmol/L Anion Gap 11 LAB CA 8.5-10.2 mg/dL Calcium, Total 9.3 LAB GFRAA eGFR- Amer. >60 LAB GFRNAA . eGFR-All Other Races 58 Result Comment: eGFR (Estimated GFR) Units of measure: mL/min/1.73 meters squared eGFR is derived from the reexpressed MDRD Study equation using the following parameters: serum creatinine, age, gender and race. The creatinine assay has been calibrated to be traceable to IDMS. An eGFR <60 mL/min/1.73m2 for >3 months is consistent with chronic kidney disease. Refer to KDOQI guidelines for clinical interpretation. In patients with unstable renal function, e.g. those with acute kidney injury, the eGFR may not accurately reflect actual GFR. Performed By: #### CBC, PT, PTTAC, BMP #### [facility] [address] [facility] [phone] PTT,ANTICOAG THERAPY Collected: 06/11/2018 Status: F Source: [place] 8:11 PM [facility] REPOSITORY TYPE CODE TESTS RESULT OUT OF RANGE REFERENCE UNITS LAB APTT 23.0-32.4 sec High APTT 48.3 Result Comment: Unfractionated Heparin Therapeutic Ranges: Standard Heparin Nomogram: 53 to 78 seconds (anti-Xa level of 0.3 to 0.7 U/ml) Low Dose/ACS Nomogram: 49 to 67 seconds (anti-Xa level of 0.2 to 0.5 U/ml) Stroke Treatment Nomogram: 49 to 67 seconds (anti-Xa level of 0.2 to 0.5 U/ml) Note: The APTT therapeutic range has been determined for the current lot of laboratory APTT reagent in use throughout the [facility]. Performed By: #### PTTAC #### [facility] [address] [place] [address] PROGRESS Observed: 06/11/2018 Status: COMPLETED Source: [place] 3:24 PM [facility] REPOSITORY HNO ID: [id number] Author: Radha Romero Service: Hospital Medicine Author Type: Physician Type: Progress Notes Filed: 06/11/2018 3:25 PM Note Text: SERVICE DATE: 06/11/2018 SERVICE TIME: 3:24 PM No new subjective AND objective note has been filed under this hospital service since the last note was generated. CARE COORDINATION: No Patient Care Coordination Note on file. 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 Patient has no medication coverage [facility] Needs to follow up with Dr Valentine. Leg edema 09/16/2010 - Present Current Assessment AND Plan Secondary to venous stasis from the clot burden Compression stockings. Essential hypertension 09/13/2010 - Present Current Assessment AND Plan Continue home doxazosin and hctz Benign prostatic hyperplasia 09/19/2008 - Present Current Assessment AND Plan Continue home medication. Medication and Non-Pharmacologic VTE Prophylaxis/Anticoagulants Anticoagulant AND Antiplatelet Medications Start Dose Route Frequency Ordered Stop 06/11/18 1700 warfarin 5 mg tab(s) (COUMADIN) 5 mg ORAL ONCE - WARFARIN 06/11/18 1515 06/12/18 0459 06/10/18 1200 heparin iv infusion (STANDARD NOMOGRAM) 25,000 units in NaCl 0.45% 250 mL PREMIX (Heparin Infusion + Rate Change Bolus) 0-30 mL/hr 0-3,000 Units/hr INTRAVENOUS CONTINUOUS 06/10/18 1154 -- 06/10/18 1700 vte non-pharmacologic prophylaxis - none indicated (ny,oh) 06/10/18 1700 vte current anticoag therapy (ny,vt) VTE Prophylaxis: on anticoagulation. Plan of care discussed with: Patient and Consultants: Dr valentine SIGNATURE: Radha Romero MD PATIENT NAME: Jovani Holman DATE: June 11, 2018 MRN: [id number] TIME: 3:24 PM PAGER/CONTACT #: [phone] PTT,ANTICOAG THERAPY Collected: 06/11/2018 Status: F Source: [place] 2:17 PM CLIN[facility] OTHER CAMPUS REPOSITORY TYPE CODE TESTS RESULT OUT OF RANGE REFERENCE UNITS LAB APTT 23.0-32.4 sec High APTT 59.7 Result Comment: Unfractionated Heparin Therapeutic Ranges: Standard Heparin Nomogram: 53 to 78 seconds (anti-Xa level of 0.3 to 0.7 U/ml) Low Dose/ACS Nomogram: 49 to 67 seconds (anti-Xa level of 0.2 to 0.5 U/ml) Stroke Treatment Nomogram: 49 to 67 seconds (anti-Xa level of 0.2 to 0.5 U/ml) Note: The APTT therapeutic range has been determined for the current lot of laboratory APTT reagent in use throughout the [facility]. Performed By: #### PTTAC #### [facility] [address] [place] [address] CONSULT Observed: 06/11/2018 Status: COMPLETED Source: [place] 10:57 AM CLINIC OTHER CAMPUS REPOSITORY O ID: [id number] Author: Kusum Valentine Service: Vascular Surgery Author Type: Physician Type: Consults Filed: 06/11/2018 11:23 AM Note Text: CONSULT: Vascular Surgery SERVICE SERVICE DATE: 06/11/2018 SERVICE TIME: 10:57 AM REASON FOR CONSULT: IVC filter thrombosis REQUESTING PHYSICIAN: Dr. Romero PRIMARY CARE PHYSICIAN: Herminio Linares MD Subjective Mr. Holman is a 67 year old male who presents from ER with recent CT scan for abdominal fullness with IVC filter thrombosis. 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 He was off anticoagulation when late April he developed severe abdominal pain and back pain following heavy lifting. He was sent to [facility] in [place] where he said they did a CT scan and checked his urine and was told he was ok.Upon follow [facility], he was hypotensive and referred to [facility]. At [place], he was diagnosed with bilateral extensive DVT and PE. He was started on xarelto. Following his stay at [facility], he stated he continued to have right groin pain, abdominal fullness stating he gain weight and waist size increased. He had an ultrasound which was negative and CT scan to follow up with demonstrated IVC filter thrombosis. He denies recent trauma, last colonoscopy about 1.5 years ago, was taking his xarelto as prescribed. FUNCTIONAL STATUS: Independent PAST MEDICAL HISTORY Diagnosis Date - Adenomatous colon polyp 10/25/20132008 - Agent orange exposure 02/21/2016 - Bladder neck obstruction 09/19/2008 - BPH (benign prostatic hypertrophy) 09/19/2008 - Chewing tobacco use 01/11/2018 - Chronic obstructive pulmonary disease (COPD) (HCC) - Coronary artery disease due to lipid rich plaque 01/11/2018 Cath around 2010 was told had one vessel at 30% blocked and maker at 50 %. As to be managed medically. - Diverticulosis of colon (without mention of hemorrhage) - Essential hypertension 09/13/2010 -continue home regimen of atenolol 50, amlodipine 5, HCTZ 25 - Ex-smoker 01/11/2018 Started around age 8 up to 2 PPD and quit 2009 - GERD (gastroesophageal reflux disease) 11/23/2013 - Hemorrhage of rectum and anus 10/23/2008 - Idiopathic urticaria 11/10/2006 - Leg edema 09/16/2010 - Lumbago 09/19/2008 - Lupus erythematosus ? if this was a true Dx. - Mixed hyperlipidemia 09/14/2010 Chol 182 Tri 98 HDL 35 LDL 127 - Mixed simple and mucopurulent chronic bronchitis (HCC) 01/22/2016 - RAYRAY (obstructive sleep apnea) AHI 5.1 per 4% AND OS 10/15/2015 Was not able to tolerate - Other pulmonary embolism and infarction 09/13/2010 -pt had PE and DVT in 2005 after back surgery -an IVC filter was placed then and is still in place Was on coumadin for a time and then quit taking it on his own - Postinflammatory pulmonary fibrosis (HCC) 09/16/2010 - Presence of IVC filter 12/29/2014 - PVC's (premature ventricular contractions) 01/11/2018 - SOLAR LENGINES 06/08/2006 - Thoracic aortic aneurysm without rupture (HCC) 02/22/2018 See who patient sees [facility] [place] next visit (07/14/2018) PAST SURGICAL HISTORY Procedure Laterality Date - 2D ECHO (EXEP) 01/13/2018 EF= 64%, Mild LVH and Tucker Dys, Mild LA enlargement and dialted ascending Aorta - COLONOS W/REM POLYP SNARE 01/06/16 adenomatous polyp - 3 year follow up - COLONOSCOP W/ OR W/O BRSH SPEC 10/23/2008 Colonoscopy, tubular adenoma - KIDNEY SURGERY HX - LEFT HEART CATH,PERCUTANEOUS 09/14/2010 Cardiac cath, L heart - PAST SURGICAL HISTORY OF 1997 partial removal left lung - [facility] - PAST SURGICAL HISTORY OF 3 back surgeries - REMV LENS MATERIAL,PHACOFRAGMT 2009 Cataract Extraction (right and left) - STRESS TEST 01/16/2018 normal FAMILY HISTORY Problem Relation Age of Onset - Diabetes Father - Stroke Father - Stroke Mother - Alzheimer's Disease Mother - Cancer Brother throat ca Social History Substance Use Topics - Smoking status: Former Smoker Packs/day: 0.50 Years: 40.00 Types: Cigarettes Quit date: 12/04/2010 - Smokeless tobacco: Current User Types: Chew Comment: quit smoking and chewing tobacco - Alcohol use No Prescriptions Prior to Admission: rivaroxaban (XARELTO) 15 mg tablet Take 1 tablet by mouth twice daily. (Patient taking differently: Take 20 mg by mouth DAILY AT 6 PM. ) Disp: Rfl: 06/09/2018 at Unknown time atorvastatin (LIPITOR) 10 mg tablet Take 2 tablets by mouth once daily. (Patient taking differently: Take 10 mg by mouth daily at bedtime. ) Disp: Rfl: 06/09/2018 at Unknown time doxazosin (CARDURA) 8 mg tablet Take 1 tablet by mouth every evening. Disp: 30 tablet Rfl: 11 06/09/2018 at Unknown time hydrochlorothiazide (HYDRODIURIL, ESIDRIX) 25 mg tablet Take 1 tablet by mouth once daily. Disp: 30 tablet Rfl: 11 06/10/2018 at Unknown time omeprazole (PRILOSEC) 20 mg capsule Take 1 capsule by mouth daily before breakfast. 1/2 hr before meal. Disp: 30 capsule Rfl: 11 Past Week at Unknown time aspirin, enteric coated (ASPIRIN, ENTERIC COATED) 81 mg EC tablet Take 81 mg by mouth once daily. Disp: Rfl: Not Taking Current hospital medications: heparin iv infusion (STANDARD NOMOGRAM) 25,000 units in NaCl 0.45% 250 mL PREMIX 0-3,000 Units/hr INTRAVENOUS CONTINUOUS doxazosin 8 mg tab(s) (CARDURA) 8 mg ORAL AT BEDTIME atorvastatin 20 mg tab(s) (LIPITOR) 20 mg ORAL DAILY pantoprazole DR 20 mg tab(s) (PROTONIX) 20 mg ORAL BEFORE BREAKFAST DAILY hydroCHLOROthiazide 25 mg tab(s) (HYDRODIURIL, ESIDRIX) 25 mg ORAL DAILY 0.9% NaCl 3-5 mL 3-5 mL INTRAVENOUS q 12 H ondansetron orally disintegrating 4 mg tab(s) (ZOFRAN ODT) 4 mg ORAL q 6 H PRN ondansetron (PF) 4 mg injection (ZOFRAN) 4 mg INTRAVENOUS q 6 H PRN magnesium hydroxide 400 mg/5 mL 30 mL (MOM) 30 mL ORAL DAILY PRN heparin RATE CHANGE bolus 1,000-4,000 Units for subtherapeutic aptt results 1,000-4,000 Units INTRAVENOUS PRN Allergies As of Date: 06/10/2018 Allergen Noted Reaction BACTRIM [SULFAMETHOXAZOLE-TRIMETH*11/18/2008 Other: See Comments LEVAQUIN [LEVOFLOXACIN] 06/10/2005 GI Upset Fully Assessed 06/10/2018 COMPLETE REVIEW OF SYSTEMS: GENERAL: No weight loss, malaise or fevers RESPIRATORY: Negative for cough, hemoptysis, wheezing, COPD, dyspnea or shortness of breath CARDIOVASCULAR: Negative for chest pain, leg swelling, hypertension, CHF or palpitations GI: No nausea, vomiting, or diarrhea : No history of dysuria, frequency or incontinence ENDOCRINE: Negative for cold or heat intolerance, polyuria, polydipsia and goiter NEURO: No history of headaches, syncope, paralysis, seizures or tremors Objective PHYSICAL EXAM: Physical Exam Performed: GENERAL: Alert, no distress, cooperative CARDIAC: Normal S1 and S2; no rubs, murmurs, or gallops ABDOMEN: Soft, nontender EXTREMITIES: bilateral calf edema, right thigh edema, warm, well perfused PULSES: 2+ dorsalis pedis BP 166/77 Pulse 67 Temp (Src) 97.5 (Oral) Resp 20 Ht 5' 10 (1.78m) Wt 206 lb 14.4 oz (93.8kg) SpO2 94% BMI 29.69 kg/(m2). DATA: Diagnostic tests reviewed for today's visit: Most recent labs and imaging results. CBC: Recent Labs 06/11/18 0148 WBC 7.38 RBC 3.90* HB 12.6* HCT 38.2* PLT 194 MCV 97.9 MCH 32.3 MPV 11.1 Coags: Recent Labs 06/11/18 0755 06/10/18 1723 INR -- -- 1.2 APTT 78.7* < > 131.2* 137.5* < > = values in this interval not displayed. BMP: Recent Labs 06/11/18 0149 NA 140 K 3.6* CHLOR 100 CO2 26 BUN 18 CREAT 1.22 GLUC 102* Impression/Recommendations Active Problems: Inferior vena cava thromboembolism (HCC) POA: Unknown Assessment AND Plan: Discussed with patient. We do not know if this is truly a failure of DOAC and he may have had filter thrombosis when diagnosed with bilateral DVTs in beginning of May. As we do not know the exact timing of thrombosis as well as symptomatically he is improving would not recommend acute inpatient thrombolysis at this time. Would recommend compression, elevation, and exercise. Discussed with patient as we can not for certainty that the proximal clot was present, would recommend transition to coumadin. May start lovenox with coumadin bridging. Has appointment to follow up with me in July SIGNATURE: Kusum Valentine DO PATIENT NAME: Jovani Holman DATE: June 11, 2018 MRN: [id number] TIME: 10:57 AM PAGER: [phone] PTT,ANTICOAG THERAPY Collected: 06/11/2018 Status: F Source: [place] 7:55 AM [facility] OTHER CAMPUS REPOSITORY TYPE CODE TESTS RESULT OUT OF RANGE REFERENCE UNITS LAB APTT 23.0-32.4 sec High APTT 78.7 Result Comment: Unfractionated Heparin Therapeutic Ranges: Standard Heparin Nomogram: 53 to 78 seconds (anti-Xa level of 0.3 to 0.7 U/ml) Low Dose/ACS Nomogram: 49 to 67 seconds (anti-Xa level of 0.2 to 0.5 U/ml) Stroke Treatment Nomogram: 49 to 67 seconds (anti-Xa level of 0.2 to 0.5 U/ml) Note: The APTT therapeutic range has been determined for the current lot of laboratory APTT reagent in use throughout the [facility]. Performed By: #### PTTAC #### [facility] [address] [place] [address] BASIC METABOLIC PANL Collected: 06/11/2018 Status: F Source: [place] 1:49 AM [facility] OTHER [place] REPOSITORY TYPE CODE TESTS RESULT OUT OF REFERENCE UNITS RANGE LAB GLU 74-99 mg/dL High Glucose 102 Result Comment: The [place] Diabetes Association (ADA) provides guidance for cutoff values for fasting glucose and random glucose. The ADA defines fasting as no caloric intake for at least 8 hours. Fas ting plasma glucose results between 100 to 125 mg/dL indicate increased risk for diabetes (prediabetes). Fasting plasma glucose results greater than or equal to 126 mg/dL meet the criteria for diagnosis of diabetes. In the absence of unequivocal hyperglycemia, results should be confirmed by repeat testing. In a patient with classic symptoms of hyperglycemia or hyperglycemic crisis, random plasma glucose results greater than or equal to 200 mg/dL meet the criteria for diagnosis of diabetes. Reference: Standards of Medical Care in Diabetes 2016, [place] [employer]. Diabetes Care. 2016.39(Suppl 1). LAB BUN 9-24 mg/dL BUN 18 LAB CRET 0.73-1.22 mg/dL Creatinine 1.22 LAB NA 136-144 mmol/L Sodium 140 LAB K 3.7-5.1 mmol/L Potassium Low 3.6 LAB CL 97-105 mmol/L Chloride 100 LAB CO2 22-30 mmol/L CO2 26 LAB AGAP 9-18 mmol/L Anion Gap 14 LAB CA 8.5-10.2 mg/dL Calcium, Total 9.3 LAB GFRAA eGFR- Amer. >60 LAB GFRNAA . eGFR-All Other Races 59 Result Comment: eGFR (Estimated GFR) Units of measure: mL/min/1.73 meters squared eGFR is derived from the reexpressed MDRD Study equation using the following parameters: serum creatinine, age, gender and race. The creatinine assay has been calibrated to be traceable to IDMS. An eGFR <60 mL/min/1.73m2 for >3 months is consistent with chronic kidney disease. Refer to KDOQI guidelines for clinical interpretation. In patients with unstable renal function, e.g. those with acute kidney injury, the eGFR may not accurately reflect actual GFR. Performed By: #### BMP #### [facility] [address] [place] [address] PTT,ANTICOAG THERAPY Collected: 06/11/2018 Status: F Source: [place] 1:48 AM [facility] REPOSITORY TYPE CODE TESTS RESULT OUT OF RANGE REFERENCE UNITS LAB APTT 23.0-32.4 sec High APTT 73.1 Result Comment: Unfractionated Heparin Therapeutic Ranges: Standard Heparin Nomogram: 53 to 78 seconds (anti-Xa level of 0.3 to 0.7 U/ml) Low Dose/ACS Nomogram: 49 to 67 seconds (anti-Xa level of 0.2 to 0.5 U/ml) Stroke Treatment Nomogram: 49 to 67 seconds (anti-Xa level of 0.2 to 0.5 U/ml) Note: The APTT therapeutic range has been determined for the current lot of laboratory APTT reagent in use throughout the [facility]. Performed By: #### PTTAC #### [facility] [address] [place] [address] CBC Collected: 06/11/2018 Status: F Source: [place] 1:48 AM [facility] REPOSITORY TYPE CODE TESTS RESULT OUT OF REFERENCE UNITS RANGE LAB WBC 3.70-11.00 k/uL WBC 7.38 LAB RBC 4.20-6.00 m/uL Low RBC 3.90 LAB HGB 13.0-17.0 g/dL Low Hemoglobin 12.6 LAB HCT 39.0-51.0 % Low Hematocrit 38.2 LAB MCV 80.0-100.0 fL MCV 97.9 LAB MCH 26.0-34.0 pG MCH 32.3 LAB MCHC 30.5-36.0 g/dL MCHC 33.0 LAB RDWCV 11.5-15.0 % RDW-CV 13.3 LAB PLTCT 150-400 k/uL Platelet Count 194 LAB MPV 9.0-12.7 fL MPV 11.1 Performed By: #### CBC #### [facility] [address] [place] [address] CBC Collected: 06/10/2018 Status: F Source: [place] 5:23 PM [facility] OTHER CAMPUS REPOSITORY TYPE CODE TESTS RESULT OUT OF REFERENCE UNITS RANGE LAB WBC 3.70-11.00 k/uL WBC 7.64 LAB RBC 4.20-6.00 m/uL Low RBC 4.03 LAB HGB 13.0-17.0 g/dL Hemoglobin 13.3 LAB HCT 39.0-51.0 % Hematocrit 39.6 LAB MCV 80.0-100.0 fL MCV 98.3 LAB MCH 26.0-34.0 pG MCH 33.0 LAB MCHC 30.5-36.0 g/dL MCHC 33.6 LAB RDWCV 11.5-15.0 % RDW-CV 13.2 LAB PLTCT 150-400 k/uL Platelet Count 216 LAB MPV 9.0-12.7 fL MPV 11.1 Performed By: #### CBC, BMP, PT, PTT #### [facility] [address] [place] [address] BASIC METABOLIC PANL Collected: 06/10/2018 Status: F Source: [place] 5:23 PM [facility] OTHER CAMPUS REPOSITORY TYPE CODE TESTS RESULT OUT OF REFERENCE UNITS RANGE LAB GLU 74-99 mg/dL Glucose 92 Result Comment: The [place] Diabetes Association (ADA) provides guidance for cutoff values for fasting glucose and random glucose. The ADA defines fasting as no caloric intake for at least 8 hours. Fas ting plasma glucose results between 100 to 125 mg/dL indicate increased risk for diabetes (prediabetes). Fasting plasma glucose results greater than or equal to 126 mg/dL meet the criteria for diagnosis of diabetes. In the absence of unequivocal hyperglycemia, results should be confirmed by repeat testing. In a patient with classic symptoms of hyperglycemia or hyperglycemic crisis, random plasma glucose results greater than or equal to 200 mg/dL meet the criteria for diagnosis of diabetes. Reference: Standards of Medical Care in Diabetes 2016, [place] [employer]. Diabetes Care. 2016.39(Suppl 1). LAB BUN 9-24 mg/dL BUN 18 LAB CRET 0.73-1.22 mg/dL Creatinine High 1.29 LAB NA 136-144 mmol/L Sodium 141 LAB K 3.7-5.1 mmol/L Low Potassium 3.4 LAB CL 97-105 mmol/L Chloride 99 LAB CO2 22-30 mmol/L CO2 27 LAB AGAP 9-18 mmol/L Anion Gap 15 LAB CA 8.5-10.2 mg/dL Calcium, Total 9.7 LAB GFRAA eGFR- Amer. >60 LAB GFRNAA . eGFR-All Other Races 55 Result Comment: eGFR (Estimated GFR) Units of measure: mL/min/1.73 meters squared eGFR is derived from the reexpressed MDRD Study equation using the following parameters: serum creatinine, age, gender and race. The creatinine assay has been calibrated to be traceable to IDMS. An eGFR <60 mL/min/1.73m2 for >3 months is consistent with chronic kidney disease. Refer to KDOQI guidelines for clinical interpretation. In patients with unstable renal function, e.g. those with acute kidney injury, the eGFR may not accurately reflect actual GFR. Performed By: #### CBC, BMP, PT, PTT #### [facility] [address] [facility] [phone] PROTIME Collected: 06/10/2018 Status: F Source: [place] 5:23 PM CLINIC OTHER CAMPUS REPOSITORY TYPE CODE TESTS RESULT OUT OF RANGE REFERENCE UNITS LAB PSEC 9.7-13.0 sec PT Sec 12.0 LAB INR 0.9-1.3 PT INR 1.2 Result Comment: Vitamin K Antagonist (VKA) Therapeutic Range: INR 2 to 3 (Target INR of 2.5) Note: For patients treated with VKA drugs, such as warfarin, the [place] [employer] 2012 Guideline recommends a therapeutic INR range of 2 to 3 (target INR of 2.5). This recommendation includes high-risk patients with antiphospholipid syndrome with previous arterial or venous thromboembolism, current-generation mechanical or bioprosthetic aortic heart valve replacement. Note: Patients with mechanical aortic valve replacement and additional risk factors for thromboembolic events (atrial fibrillation, previous thromboembolism, LV dysfunction, hypercoagulable conditions) or an older generation mechanical AVR (i.e., ball in-Cage) or any mechanical MVR should have a INR therapeutic range of 2.5 to 3.5 (target INR of 3). Nic CARRINGTON, et al. Chest 2012, 141:7S-47S Andrzej MILLAN, et al. [facility] 2017, 70: 252-289 Performed By: #### CBC, BMP, PT, PTT #### [facility] [address] [place] [address] APTT Collected: 06/10/2018 Status: F Source: [place] 5:23 [facility] REPOSITORY TYPE CODE TESTS RESULT OUT OF RANGE REFERENCE UNITS LAB APTT 23.0-32.4 sec High APTT 131.2 Result Comment: Unfractionated Heparin Therapeutic Ranges: Standard Heparin Nomogram: 53 to 78 seconds (anti-Xa level of 0.3 to 0.7 U/ml) Low Dose/ACS Nomogram: 49 to 67 seconds (anti-Xa level of 0.2 to 0.5 U/ml) Stroke Treatment Nomogram: 49 to 67 seconds (anti-Xa level of 0.2 to 0.5 U/ml) Note: The APTT therapeutic range has been determined for the current lot of laboratory APTT reagent in use throughout the [facility]. Rechecked Called to and read back by: Leah Chicas [address] [place] [address] 06/10/18 [place] Performed By: #### CBC, BMP, PT, PTT #### [facility] [address] [place] [address] PTT,ANTICOAG THERAPY Collected: 06/10/2018 Status: F Source: [place] 5:23 [facility] REPOSITORY TYPE CODE TESTS RESULT OUT OF RANGE REFERENCE UNITS LAB APTT 23.0-32.4 sec High APTT 137.5 Result Comment: Unfractionated Heparin Therapeutic Ranges: Standard Heparin Nomogram: 53 to 78 seconds (anti-Xa level of 0.3 to 0.7 U/ml) Low Dose/ACS Nomogram: 49 to 67 seconds (anti-Xa level of 0.2 to 0.5 U/ml) Stroke Treatment Nomogram: 49 to 67 seconds (anti-Xa level of 0.2 to 0.5 U/ml) Note: The APTT therapeutic range has been determined for the current lot of laboratory APTT reagent in use throughout the [facility]. Rechecked Called to and read back by: Leah Chicas [address] [place] [address] 06/10/[address] Performed By: #### PTTAC #### [facility] [address] [facility] [phone] HISTORY PHYSICAL Observed: 06/10/2018 Status: COMPLETED Source: [place] 5:19 PM CLINIC OTHER CAMPUS REPOSITORY HNO ID: [id number] Author: Radha Romero Service: Hospital Medicine Author Type: Physician Type: HANDP Filed: 06/11/2018 3:18 PM Note Text: SERVICE DATE: 06/10/2018 SERVICE TIME: 5:19 PM HOSPITAL MEDICINE HISTORY AND PHYSICAL PCP: Herminio Linares MD NIGHT AND WEEKEND COVERAGE: Nights: Please contact pager [phone]. SUBJECTIVE Chief Complaint: GROIN PAIN, CT positive for DVT HPI: 67 yr old male with PMH of HTN, BPH, COPD, and recent history of DVT/PE presents with right inguinal groin pain for the last [address] 2 days ago and was called today and told to report to the ER immediately due to multiple blood clots. Report shows :extensive clot to IVC below the IVC filter and bilateral iliac veins. He reports that he was hospitalized last month on 05/03/18 for multiple syncopal episodes and that they discovered numerous blood clots. He was placed on Xerelto. He has had associated bilateral lower leg edema since his previous admission along with abdominal distention and weight gain of 20lbs. He has been compliant with his current anticoagulation therapy. Does state that his pain has been improving since yesterday. He has not had any associated chest pain, dyspnea or new syncopal episodes. CT in ER today negative for PE. He is currently only complaining of minor pain in right groin. PAST MEDICAL HISTORY Diagnosis Date - Adenomatous colon polyp 10/25/20132008 - Agent orange exposure 02/21/2016 - Bladder neck obstruction 09/19/2008 - BPH (benign prostatic hypertrophy) 09/19/2008 - Chewing tobacco use 01/11/2018 - Chronic obstructive pulmonary disease (COPD) (HCC) - Coronary artery disease due to lipid rich plaque 01/11/2018 Cath around 2010 was told had one vessel at 30% blocked and maker at 50 %. As to be managed medically. - Diverticulosis of colon (without mention of hemorrhage) - Essential hypertension 09/13/2010 -continue home regimen of atenolol 50, amlodipine 5, HCTZ 25 - Ex-smoker 01/11/2018 Started around age 8 up to 2 PPD and quit 2009 - GERD (gastroesophageal reflux disease) 11/23/2013 - Hemorrhage of rectum and anus 10/23/2008 - Idiopathic urticaria 11/10/2006 - Leg edema 09/16/2010 - Lumbago 09/19/2008 - Lupus erythematosus ? if this was a true Dx. - Mixed hyperlipidemia 09/14/2010 Chol 182 Tri 98 HDL 35 LDL 127 - Mixed simple and mucopurulent chronic bronchitis (HCC) 01/22/2016 - RAYRAY (obstructive sleep apnea) AHI 5.1 per 4% AND OS 10/15/2015 Was not able to tolerate - Other pulmonary embolism and infarction 09/13/2010 -pt had PE and DVT in 2005 after back surgery -an IVC filter was placed then and is still in place Was on coumadin for a time and then quit taking it on his own - Postinflammatory pulmonary fibrosis (HCC) 09/16/2010 - Presence of IVC filter 12/29/2014 - PVC's (premature ventricular contractions) 01/11/2018 - SOLAR LENGINES 06/08/2006 - Thoracic aortic aneurysm without rupture (HCC) 02/22/2018 See who patient sees [facility] next visit (07/14/2018) PAST SURGICAL HISTORY Procedure Laterality Date - 2D ECHO (EXEP) 01/13/2018 EF= 64%, Mild LVH and Tucker Dys, Mild LA enlargement and dialted ascending Aorta - COLONOS W/REM POLYP SNARE 01/06/16 adenomatous polyp - 3 year follow up - COLONOSCOP W/ OR W/O BRSH SPEC 10/23/2008 Colonoscopy, tubular adenoma - KIDNEY SURGERY HX - LEFT HEART CATH,PERCUTANEOUS 09/14/2010 Cardiac cath, L heart - PAST SURGICAL HISTORY OF 1997 partial removal left lung - [facility] - PAST SURGICAL HISTORY OF 3 back surgeries - REMV LENS MATERIAL,PHACOFRAGMT 2009 Cataract Extraction (right and left) - STRESS TEST 01/16/2018 normal FAMILY HISTORY Problem Relation Age of Onset - Diabetes Father - Stroke Father - Stroke Mother - Alzheimer's Disease Mother - Cancer Brother throat ca Social History Substance Use Topics - Smoking status: Former Smoker Packs/day: 0.50 Years: 40.00 Types: Cigarettes Quit date: 12/04/2010 - Smokeless tobacco: Current User Types: Chew Comment: quit smoking and chewing tobacco - Alcohol use No Medications: Reviewed Allergies: ALLERGIES Allergen Reactions - Bactrim [Sulfametho* Other: See Comments sore throat - Levaquin [Levofloxa* GI Upset Review of Systems: PAIN ASSESSMENT: Negative for pain, history of chronic pain, or current treatment for a chronic pain condition. GENERAL: Fatigue HEENT: Negative for frequent or significant headaches, No changes in hearing or vision, no nose bleeds or other nasal problems RESPIRATORY: Negative for cough, hemoptysis, wheezing, COPD, dyspnea or shortness of breath CARDIOVASCULAR: Negative for chest pain,CHF or palpitations GI: No nausea, vomiting, or diarrhea MUSCULOSKELETAL: Negative for joint pain, back pain or muscle pain SKIN: Negative for lesions, rash, and itching HEMATOLOGY/LYMPHOLOGY: Negative for prolonged bleeding and bruising easily. Has had edema noted bilateral lower extremities for 1 month. OBJECTIVE: PHYSICAL EXAM BP 167/87 Pulse 75 Temp (Src) 98.8 (Oral) Resp 20 Ht 5' 10 (1.78m) Wt 206 lb 14.4 oz (93.8kg) SpO2 96% BMI 29.69 kg/(m2). Physical Exam Performed: GENERAL: Alert, no distress, cooperative HEAD/SINUSES: No significant findings LUNGS: Lungs clear to auscultation, Good diaphragmatic excursion CARDIAC: Normal S1 and S2; no rubs, murmurs, or gallops ABDOMEN: Abdomen soft, non-tender, BS normal, No masses or organomegaly. TTP over left groin. No edema of scrotum, ecchymosis or bulging present. EXTREMITIES: Moderate generalized edema extending to ankles, non pitting. no deformities clubbing or skin discoloration. Good capillary refill., No ulcers Pulses +2. NEURO: Gait normal. Reflexes normal and symmetric. Sensation grossly intact, Cranial nerves II-XII intact PULSES: 2+ radial, 2+ carotid Lines, Drains, and Airways Line Peripheral 06/10/18 1215 Antecubital 20 Gauge less than 1 day Diagnostic tests reviewed: Most recent labs and imaging results CARE COORDINATION: No Patient Care Coordination Note on file. 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 Started on heparin in ER. Plan: -Continue heparin therapy per nomogram protocol. -Hold xerelto -Consult vascular -No mechanical DVT prophylaxis Leg edema 09/16/2010 - Present Current Assessment AND Plan Assessment: -Bilateral generalized edema of lower extremities. Negative for calf swelling, erythema or tenderness. PLAN: -Continue HTZ -Monitor Essential hypertension 09/13/2010 - Present Current Assessment AND Plan Assessment: Controlled PLAN: -Continue current medication regimen -Monitor for needed changes. Benign prostatic hyperplasia 09/19/2008 - Present Current Assessment AND Plan Assessment: -Controlled with no current issues/difficulty urinating. PLAN: -Continue current medication therapy. Medication and Non-Pharmacologic VTE Prophylaxis/Anticoagulants Anticoagulant AND Antiplatelet Medications Start Dose Route Frequency Ordered Stop 06/10/18 1700 aspirin, enteric coated 81 mg tab(s) 81 mg ORAL DAILY 06/10/18 1654 -- 06/10/18 1200 heparin iv infusion (STANDARD NOMOGRAM) 25,000 units in NaCl 0.45% 250 mL PREMIX (Heparin Infusion + Rate Change Bolus) 0-30 mL/hr 0-3,000 Units/hr INTRAVENOUS CONTINUOUS 06/10/18 1154 -- 06/10/18 1700 vte non-pharmacologic prophylaxis - none indicated (ny,oh) 06/10/18 1700 vte current anticoag therapy (ny,oh) VTE Prophylaxis: Contraindicated current emboli in lower extremeties SIGNATURE: Sal Clark APRN.CHAIR CANER PATIENT NAME: Jovani Holman DATE: June 10, 2018 MRN: [id number] TIME: 5:19 PM ED NOTE Observed: 06/10/2018 Status: COMPLETED Source: [place] 1:10 PM [facility] OTHER CAMPUS REPOSITORY HNO ID: [id number] Author: Jensen (Rn) SHIMA Brannon Service: (none) Author Type: Registered Nurse Type: ED Notes Filed: 06/10/2018 1:20 PM Note Text: Patient returned to the Emergency Department. CT CHEST W IVCON PE Observed: 06/10/2018 Status: F Source: [place] 1:05 PM [facility] OTHER CAMPUS REPOSITORY * * *Final Report* * * DATE OF EXAM: Jun 10 2018 1:05PM [facility] [place] [id number] - CT CHEST W IVCON PE / PROCEDURE REASON: PE suspected, high pretest prob * * * * Physician Interpretation * * * * EXAMINATION: CHEST CT WITH CONTRAST (PULMONARY EMBOLISM PROTOCOL) CLINICAL HISTORY: PE suspected, high pretest prob, PE suspected, high pretest prob CLOT SEEN IN GROIN ON PREVIOUS SCAN, ON BLOOD THINNERS CURRENTLY RECENT PE Technique: Spiral CT acquisition of the chest from the thoracic inlet to the upper abdomen following IV contrast. MQ: CTCPER_4 Contrast: 100 mL Omnipaque [address] Dose-Length Product: 426 mGy*cm CT Dose Reduction Employed: Automated exposure control (AEC) Comparison: CT chest 12/31/2015 CT abdomen and pelvis 06/08/2018 RESULT: Limitations: None. Evaluation for thromboembolic disease: - Right heart chambers: No thromboembolic disease. - Main pulmonary arteries: No thromboembolic disease. - Lobar pulmonary arteries: No thromboembolic disease. - Segmental pulmonary arteries: No thromboembolic disease. - Subsegmental pulmonary arteries: No thromboembolic disease. Lines, tubes, and devices: None. Lung parenchyma and pleura: No consolidation. No suspicious pulmonary nodule. No pleural effusion. Central airways are patent. Calcified nodule RIGHT lung base image 252. Area of scarring and parenchymal calcification in the LEFT apical region image 95 from previous wedge resection.. The reticular changes along the posterior lateral chest wall in the lingula and LEFT lower lobe some focal increased opacification in this area exact etiology uncertain. Thoracic inlet, heart, and mediastinum: No lymphadenopathy in the axillary, mediastinal, or hilar regions. The thoracic aorta and main pulmonary artery are normal in caliber. The cardiac chambers are normal in size. No coronary artery atherosclerotic calcifications are noted, although the study is not optimized for coronary assessment. No pericardial effusion or thickening. Bones and soft tissues: No destructive bone lesion. Chest wall is unremarkable. Upper abdomen: No abnormality in the imaged upper abdomen. IMPRESSION: 1. No CT evidence of pulmonary embolism. 2. Subpleural reticular changes with more focal adjacent increased density since previous study. This is seen along the posterior lateral chest wall in the lingula and LEFT lower lobe-etiology uncertain. May relate to interstitial lung disease and scarring. Tire Service Technician: ELIZABETH Transcribe Date/Time: Jun 10 2018 1:24P Dictated by : MANUEL BAILON DO This examination was interpreted and the report reviewed and electronically signed by: MANUEL BAILON DO on Jun 10 2018 1:43PM EST [id number] CASE MGT INIT Observed: 06/10/2018 Status: COMPLETED Source: [facility] 12:55 PM [facility] OTHER CAMPUS REPOSITORY HNO ID: [id number] Author: Hilaria (Rn) SHIMA Ramon Service: (none) Author Type: Registered Nurse Type: Care Mgt Initial Assessment Filed: 06/10/2018 12:59 PM Note Text: CARE MANAGEMENT: ASSESSMENT AND DISCHARGE PLAN SERVICE DATE: 06/10/2018 SERVICE TIME: 12:55 PM PRIMARY CARE PHYSICIAN: Herminio Linares MD ADMISSION STATUS: Emergency Needs Prior to Discharge: To Be Determined MEDICAL: Patient/Drapery Hand Stated Goals: To have reduction in symptoms To return home to life as it was Health Insurance: MEDICARE A AND B [employer] [facility] Issues Impacting Discharge Plan: HX DVT/PE Last Admission Date: Previous admit date: 09/13/2010 Is this Within the Past 30 days? No Advance Directive: Current Advance Directive: Health Care Power of Housing Property Manager In Chart: No Sweet Pickled Fruit Maker Attempted to Assist with AD Completion: Yes Health Literacy: 1. How often do you need to have someone help you when you read instructions, pamphlets, or other written material from your doctor or pharmacy? Never - 1 2. How confident are you filling out medical forms by yourself? Extremely - 1 If Patient scores > 3 on either question, the following interventions were put into place: Patient did not score > 3 FUNCTIONAL AND COGNITIVE/BEHAVIORAL PRIOR TO ADMISSION: Baseline Mental Status: Alert AND Oriented, Person, Place , Time and Situation Functional Status: Independent Does Patient Currently Receive Any Community Services or Home Care? None Equipment Prior to Admission: None Has the Patient Been in a Intermediate Facility in the Past 30 days? No SOCIAL: Living Arrangement: Home Lives With: Spouse Financial Resources: Retired Primary Contact: Extended Emergency Contact Information Primary Emergency Contact: Ashley Holman Address: [address] OF [facility] Mobile Relation: Spouse Secondary Emergency Contact: Catherine Burns Mobile Relation: Daughter Supportive: Yes Other Important Patient Contacts: None Caregiver Assessment: Caregiver is ready, willing and able to meet the patient's needs as recommended by the inter-professional team? No Caregiver Needed Patient's transition needs and plan for meeting these needs: TBD Does the patient have an acute stroke diagnosis, or has the patient had a stroke during this admission? No Medication Adherence: I am convinced of the importance of my prescription medication: Agree mostly - 0 I worry that my prescription medication will do more harm than good to me Disagree mostly - 0 I feel financially burdened by my [id number] expenses for my prescription medication: Disagree mostly -0 Patient is categorized as low risk < 2 Are you interested in bedside delivery of your medications? No , uses [facility] in [place] Food Concerns: In the Last Month, Have You had Trouble Getting Food? No trouble getting food During the Last Month, Have You Worried Whether Your Food Would Run Out Before You Had Enough Money to Buy More? No Is the Patient Psychosocially Complex? No ASSESSMENT AND PLAN: Medical Needs: 2 or more chronic diseases Psychosocial Needs: None FREEDOM OF CHOICE EXPLAINED: N/A POTENTIAL TRANSITION PLANS No Services Indicated CM in to speak with patient and spouse Ashley at bedside, introduced self and role. Pt is a 67y/o with h/o DVT/PE (on Xarelto) who presents with clot on CT of his abdomen. Pt is AANDOx4, resides with spouse in a 1SH. SENIOR SQL DBA pt was complete indep/self care,denies use of DME, HHC or SNF. Per pt, plan is to return home with spouse to assist if needed. CM instructed pt that a CM will remain available for any d/c needs. Pt had no further questions/concerns voiced at this time. SIGNATURE: Hilaria Ramon RN PATIENT NAME: Jovani Holman DATE: June 10, 2018 MRN: [id number] TIME: 12:55 PM PAGER/CONTACT #: [phone] CBC AND DIFFERENTIAL Collected: 06/10/2018 Status: F Source: [place] 11:50 AM CLINIC OTHER CAMPUS REPOSITORY TYPE CODE TESTS RESULT OUT OF REFERENCE UNITS RANGE LAB WBC 3.70-11.00 k/uL WBC 6.67 LAB RBC 4.20-6.00 m/uL RBC 4.20 LAB HGB 13.0-17.0 g/dL Hemoglobin 13.7 LAB HCT 39.0-51.0 % Hematocrit 41.2 LAB MCV 80.0-100.0 fL MCV 98.1 LAB MCH 26.0-34.0 pG MCH 32.6 LAB MCHC 30.5-36.0 g/dL MCHC 33.3 LAB RDWCV 11.5-15.0 % RDW-CV 13.4 LAB PLTCT 150-400 k/uL Platelet Count 215 LAB MPV 9.0-12.7 fL MPV 11.1 LAB ANEUT % Neut% 61.2 LAB AANEUT 1.45-7.50 k/uL Abs Neut 4.08 LAB ALYMP % Lymph% 25.0 LAB AALYMP 1.00-4.00 k/uL Abs Lymph 1.67 LAB AMONO % [place]% 12.3 LAB AAMONO <0.87 k/uL Abs [place] 0.82 LAB AEOS % Eosin% 1.2 LAB AAEOS <0.46 k/uL Abs Eosin 0.08 LAB ABASO % Baso% 0.3 LAB AABASO <0.11 k/uL Abs Baso <0.03 Performed By: #### CBCDIF, CMP #### [facility] [address] [place] [address] COMP METABOLIC PANEL Collected: 06/10/2018 Status: F Source: [place] 11:50 AM CLINIC OTHER CAMPUS REPOSITORY TYPE CODE TESTS RESULT OUT OF REFERENCE UNITS RANGE LAB TP 6.3-8.0 g/dL Protein, Total 7.0 LAB ALB 3.9-4.9 g/dL Albumin 4.3 LAB CA 8.5-10.2 mg/dL Calcium, Total 9.7 LAB TBIL 0.2-1.3 mg/dL Bilirubin, Total 0.7 LAB ALKP 38-113 U/L Alkaline Phosphatase 97 LAB AST 14-40 U/L AST 15 LAB GLU 74-99 mg/dL Glucose High 114 Result Comment: The [place] Diabetes Association (ADA) provides guidance for cutoff values for fasting glucose and random glucose. The ADA defines fasting as no caloric intake for at least 8 hours. Fas ting plasma glucose results between 100 to 125 mg/dL indicate increased risk for diabetes (prediabetes). Fasting plasma glucose results greater than or equal to 126 mg/dL meet the criteria for diagnosis of diabetes. In the absence of unequivocal hyperglycemia, results should be confirmed by repeat testing. In a patient with classic symptoms of hyperglycemia or hyperglycemic crisis, random plasma glucose results greater than or equal to 200 mg/dL meet the criteria for diagnosis of diabetes. Reference: Standards of Medical Care in Diabetes 2016, [place] Diabetes Association. Diabetes Care. 2016.39(Suppl 1). LAB BUN 9-24 mg/dL BUN 17 LAB CRET 0.73-1.22 mg/dL Creatinine High 1.37 LAB NA 136-144 mmol/L Sodium 140 LAB K 3.7-5.1 mmol/L Low Potassium 3.5 LAB CL 97-105 mmol/L Chloride 98 LAB CO2 22-30 mmol/L CO2 28 LAB AGAP 9-18 mmol/L Anion Gap 14 LAB ALT 10-54 U/L ALT 13 LAB GFRAA eGFR- Amer. >60 LAB GFRNAA . eGFR-All Other Races 52 Result Comment: eGFR (Estimated GFR) Units of measure: mL/min/1.73 meters squared eGFR is derived from the reexpressed MDRD Study equation using the following parameters: serum creatinine, age, gender and race. The creatinine assay has been calibrated to be traceable to IDMS. An eGFR <60 mL/min/1.73m2 for >3 months is consistent with chronic kidney disease. Refer to KDOQI guidelines for clinical interpretation. In patients with unstable renal function, e.g. those with acute kidney injury, the eGFR may not accurately reflect actual GFR. Performed By: #### CBCDIF, CMP #### [facility] [address] [place] [address] PROTIME Collected: 06/10/2018 Status: F Source: [place] 11:50 AM CLINIC OTHER CAMPUS REPOSITORY TYPE CODE TESTS RESULT OUT OF RANGE REFERENCE UNITS LAB PSEC 9.7-13.0 sec PT Sec 12.3 LAB INR 0.9-1.3 PT INR 1.2 Result Comment: Vitamin K Antagonist (VKA) Therapeutic Range: INR 2 to 3 (Target INR of 2.5) Note: For patients treated with VKA drugs, such as warfarin, the [place] [employer] Chest Physicians 2012 Guideline recommends a therapeutic INR range of 2 to 3 (target INR of 2.5). This recommendation includes high-risk patients with antiphospholipid syndrome with previous arterial or venous thromboembolism, current-generation mechanical or bioprosthetic aortic heart valve replacement. Note: Patients with mechanical aortic valve replacement and additional risk factors for thromboembolic events (atrial fibrillation, previous thromboembolism, LV dysfunction, hypercoagulable conditions) or an older generation mechanical AVR (i.e., ball in-Cage) or any mechanical MVR should have a INR therapeutic range of 2.5 to 3.5 (target INR of 3). Nic GH, et al. Chest 2012, 141:7S-47S Andrzej MILLAN et al. [facility] 2017, 70: 252-289 Performed By: #### PT, PTTAC #### [facility] [address] [place] [address] PTT,ANTICOAG THERAPY Collected: 06/10/2018 Status: F Source: [place] 11:50 AM [facility] REPOSITORY TYPE CODE TESTS RESULT OUT OF RANGE REFERENCE UNITS LAB APTT 23.0-32.4 sec APTT 29.9 Result Comment: Unfractionated Heparin Therapeutic Ranges: Standard Heparin Nomogram: 53 to 78 seconds (anti-Xa level of 0.3 to 0.7 U/ml) Low Dose/ACS Nomogram: 49 to 67 seconds (anti-Xa level of 0.2 to 0.5 U/ml) Stroke Treatment Nomogram: 49 to 67 seconds (anti-Xa level of 0.2 to 0.5 U/ml) Note: The APTT therapeutic range has been determined for the current lot of laboratory APTT reagent in use throughout the [facility]. Performed By: #### PT, PTTAC #### [facility] [address] [place] [address] ED PROV NOTE Observed: 06/10/2018 Status: COMPLETED Source: [place] 11:44 AM [facility] REPOSITORY HNO ID: [id number] Author: Crystal Green MD Service: (none) Author Type: Physician Type: ED Provider Notes Filed: 06/10/2018 2:15 PM Note Text: ED Provider Note Patient Name: Jovani Holman MRN: [id number] SERVICE DATE: 06/10/18 History Patient presents with: Groin Pain: right groin for 2 weeks, states had a ct scan on and it shows a blood cloy Patient wit h/o DVT/PE (on Xarelto) who presents with clot on CT of his abdomen. Patient has remote history of PE/DVT in . He was on coumadin for 8 months at that time but he discontinued on his own. Then, this past labor day he was diagnosed with PE/DVT again and placed on Xarelto after hypotensive syncopal episode. At that time he was sob, had lower extremity edema, and right groin pain. Patient complained of abdomina fullness with right groin pain to his primary on 05/30. A Ct of the abdomen was ordered which showed extensive clot to IVC below the IVC filter and bilateral iliac veins. He report the swelling to his legs have improved and he no longer is sob. PAST MEDICAL HISTORY Diagnosis Date - Adenomatous colon polyp 10/25/20132008 - Agent orange exposure 02/21/2016 - Bladder neck obstruction 09/19/2008 - BPH (benign prostatic hypertrophy) 09/19/2008 - Chewing tobacco use 01/11/2018 - Chronic obstructive pulmonary disease (COPD) ([facility]) - Coronary artery disease due to lipid rich plaque 01/11/2018 Cath around 2010 was told had one vessel at 30% blocked and maker at 50 %. As to be managed medically. - Diverticulosis of colon (without mention of hemorrhage) - Essential hypertension 09/13/2010 -continue home regimen of atenolol 50, amlodipine 5, HCTZ 25 - Ex-smoker 01/11/2018 Started around age 8 up to 2 PPD and quit 2009 - GERD (gastroesophageal reflux disease) 11/23/2013 - Hemorrhage of rectum and anus 10/23/2008 - Idiopathic urticaria 11/10/2006 - Leg edema 09/16/2010 - Lumbago 09/19/2008 - Lupus erythematosus ? if this was a true Dx. - Mixed hyperlipidemia 09/14/2010 Chol 182 Tri 98 HDL 35 LDL 127 - Mixed simple and mucopurulent chronic bronchitis (HCC) 01/22/2016 - RAYRAY (obstructive sleep apnea) AHI 5.1 per 4% AND OS 10/15/2015 Was not able to tolerate - Other pulmonary embolism and infarction 09/13/2010 -pt had PE and DVT in 2005 after back surgery -an IVC filter was placed then and is still in place Was on coumadin for a time and then quit taking it on his own - Postinflammatory pulmonary fibrosis (HCC) 09/16/2010 - Presence of IVC filter 12/29/2014 - PVC's (premature ventricular contractions) 01/11/2018 - SOLAR LENGINES 06/08/2006 - Thoracic aortic aneurysm without rupture (HCC) 02/22/2018 See who patient sees [facility] next visit (07/14/2018) PAST SURGICAL HISTORY Procedure Laterality Date - 2D ECHO (EXEP) 01/13/2018 EF= 64%, Mild LVH and Tucker Dys, Mild LA enlargement and dialted ascending Aorta - COLONOS W/REM POLYP SNARE 01/06/16 adenomatous polyp - 3 year follow up - COLONOSCOP W/ OR W/O BRSH SPEC 10/23/2008 Colonoscopy, tubular adenoma - KIDNEY SURGERY HX - LEFT HEART CATH,PERCUTANEOUS 09/14/2010 Cardiac cath, L heart - PAST SURGICAL HISTORY OF 1997 partial removal left lung - [facility] - PAST SURGICAL HISTORY OF 3 back surgeries - REMV LENS MATERIAL,PHACOFRAGMT 2009 Cataract Extraction (right and left) - STRESS TEST 01/16/2018 normal FAMILY HISTORY Problem Relation Age of Onset - Diabetes Father - Stroke Father - Stroke Mother - Alzheimer's Disease Mother - Cancer Brother throat ca Social History Social History Main Topics - Smoking status: Former Smoker Packs/day: 0.50 Years: 40.00 Types: Cigarettes Quit date: 12/04/2010 - Smokeless tobacco: Current User Types: Chew Comment: quit smoking and chewing tobacco - Alcohol use No - Drug use: No - Sexual activity: Not on file ALLERGIES Allergen Reactions - Bactrim [Sulfametho* Other: See Comments sore throat - Levaquin [Levofloxa* GI Upset Review of Systems Constitutional: Negative. Negative for chills, fatigue and fever. HENT: Negative. Negative for congestion, postnasal drip, rhinorrhea, sinus pain and sinus pressure. Facial edema intermittently since april Eyes: Negative. Respiratory: Negative. Negative for cough and shortness of breath. Cardiovascular: Negative. Negative for chest pain, palpitations and leg swelling. Gastrointestinal: Positive for abdominal distention. Negative for constipation, diarrhea, nausea and vomiting. Genitourinary: Negative. Negative for difficulty urinating and flank pain. Musculoskeletal: Negative. Negative for back pain. Skin: Negative. Neurological: Negative. Negative for dizziness, light-headedness and headaches. Psychiatric/Behavioral: Negative. Negative for confusion. Physical Exam BP 122/75 Pulse 93 Temp (Src) 96.8 (Oral) Resp 18 Ht 5' 10 (1.78m) Wt 209 lb (94.8kg) SpO2 97% BMI 29.99 kg/(m2). Physical Exam Constitutional: He is oriented to person, place, and time. He appears well-developed and well-nourished. No distress. HENT: Head: Normocephalic and atraumatic. Right Ear: External ear normal. Left Ear: External ear normal. Nose: Nose normal. Mouth/Throat: Oropharynx is clear and moist. Eyes: Pupils are equal, round, and reactive to light. Conjunctivae and EOM are normal. Neck: Normal range of motion. Neck supple. Cardiovascular: Normal rate, regular rhythm, normal heart sounds and intact distal pulses. No murmur heard. Pulmonary/Chest: Effort normal and breath sounds normal. No stridor. No respiratory distress. He has no wheezes. He has no rales. Abdominal: Soft. He exhibits no distension. There is no tenderness. There is no rebound. Musculoskeletal: Normal range of motion. He exhibits no edema or tenderness. Lymphadenopathy: He has no cervical adenopathy. Neurological: He is alert and oriented to person, place, and time. He has normal reflexes. Skin: Skin is warm and dry. No rash noted. No erythema. Psychiatric: He has a normal mood and affect. His behavior is normal. Judgment and thought content normal. Nursing note and vitals reviewed. Diagnostic Testing ED Labs Ordered and Reviewed - No data to display Results for orders placed or performed during the hospital encounter of 06/10/18 PROTHROMBIN TIME/PT Result Value Ref Range PT Sec 12.3 9.7 - 13.0 sec PT INR 1.2 0.9 - 1.3 CBC + DIFF Result Value Ref Range WBC 6.67 3.70 - 11.00 k/uL RBC 4.20 4.20 - 6.00 m/uL Hemoglobin 13.7 13.0 - 17.0 g/dL Hematocrit 41.2 39.0 - 51.0 % MCV 98.1 80.0 - 100.0 fL MCH 32.6 26.0 - 34.0 pG MCHC 33.3 30.5 - 36.0 g/dL RDW-CV 13.4 11.5 - 15.0 % Platelet Count 215 150 - 400 k/uL MPV 11.1 9.0 - 12.7 fL Neut% 61.2 % Abs Neut (ANC) 4.08 1.45 - 7.50 k/uL Lymph% 25.0 % Abs Lymph 1.67 1.00 - 4.00 k/uL [place]% 12.3 % Abs [place] 0.82 <0.87 k/uL Eosin% 1.2 % Abs Eosin 0.08 <0.46 k/uL Baso% 0.3 % Abs Baso <0.03 <0.11 k/uL PTT, ANTICOAGULANT THERAPY Result Value Ref Range APTT 29.9 23.0 - 32.[address] CHEST W IVCON PE Final Result IMPRESSION: 1. No CT evidence of pulmonary embolism. 2. Subpleural reticular changes with more focal adjacent increased density since previous study. This is seen along the posterior lateral chest wall in the lingula and LEFT lower lobe-etiology uncertain. May relate to interstitial lung disease and scarring. Tire Service Technician: PSCB Transcribe Date/Time: Jun 10 2018 1:24P Dictated by : MANUEL BAILON DO This examination was interpreted and the report reviewed and electronically signed by: MANUEL BAILON DO on Jun 10 2018 1:43PM EST Procedures ED Course / Clinical Impression Clinical Impressions as of Jun 10 1414 Inferior vena cava thromboembolism (HCC) MDM / Disposition / Plan Nurses notes and old chart reviewed Patient here for abnormal CT which showed extensive clot to IVC and bilateral iliac veins on xarelto for one month D/w Dr. Valentine regarding above and recent history. She is ok with [place] [facility] [place] chronicity of symptoms. Start on IV heparin. CBC drawn is negative, will check CT chest to rule out PE given facial swelling. D/w Dr. Romero regarding admission. 2:15 PM Also, I did do a PE study again given his facial edema which was negative for PE, but did have some changes on lateral lung which was interstitial lung disease vs scarring. The patient was ADMITTED TO: Regular nursing floor. Condition at time of disposition: stable SIGNATURE: MD Crystal Ma MD 06/10/18 1221 Crystal Green MD 06/10/18 1415 ED NOTE Observed: 06/10/2018 Status: COMPLETED Source: [place] 11:36 AM [facility] REPOSITORY HNO ID: [id number] Author: Elizabeth SilvaRn) SHIMA Sorto Service: (none) Author Type: Registered Nurse Type: ED Notes Filed: 06/10/2018 11:37 AM Note Text: Patient presents with right groin pain for past 2 weeks, had CT scan on which shows a blood clot. Patient has been taking Xeralto. PROGRESS Observed: 06/08/2018 Status: COMPLETED Source: [place] 12:09 PM [facility] REPOSITORY HNO ID: [id number] Author: Malgorzata Moise Ct Service: (none) Author Type: (none) Type: Progress Notes Filed: 06/08/2018 12:09 PM Note Text: Radiology Service Progress Note PATIENT NAME: Jovani Holman DATE OF SERVICE: June 08, 2018 TIME: 12:09 PM PATIENT IDENTITY VERIFICATION COMPLETED USING TWO (2) METHODS: Patient confirmed name verbally and Date of . PATIENT GENDER DATA: Male PATIENT RELEVANT IMPLANT DATA REVIEWED: Not Applicable CONTRAST INDUCED NEPHROPATHY RISK FACTORS: Patient age > 60 years CREATININE: Creatinine Date Value Ref Range Status 06/03/2018 1.23 (H) 0.73 - 1.22 mg/dL Final 05/30/2018 1.31 (H) 0.73 - 1.22 mg/dL Final 04/21/2017 1.1 0.6 - 1.3 MG/DL Final 12/26/2015 1.13 0.70 - 1.40 mg/dL Final Creatinine, Whole Blood (iSTAT) Date Value Ref Range Status 06/30/2017 1.10 0.70 - 1.40 mg/dL Final eGFR-All Other Races Date Value Ref Range Status 06/03/2018 58 . Final Comment: eGFR (Estimated GFR) Units of measure: mL/min/1.73 meters squared eGFR is derived from the reexpressed MDRD Study equation using the following parameters: serum creatinine, age, gender and race. The creatinine assay has been calibrated to be traceable to IDMS. An eGFR <60 mL/min/1.73m2 for >3 months is consistent with chronic kidney disease. Refer to KDOQI guidelines for clinical interpretation. In patients with unstable renal function, e.g. those with acute kidney injury, the eGFR may not accurately reflect actual GFR. eGFR- Date Value Ref Range Status 06/03/2018 >60 Final P.O.C.T. RESULTS: POC done: Yes, See Lab Tab June 08, 2018 RADIOLOGIST NOTIFIED?: No ALLERGIES: Reviewed and unchanged CONTRAST ALLERGY: NO. PERIPHERAL IV ACCESS: Ambulatory: IV type: A peripheral IV was started in the Left antecubital site with a Angio cath: 22 gauge., Site assessment: Clean,Dry and Intact, Site disposition Discontinued RADIOLOGY DEPARTMENT: CT; Exam(s) Completed: Abdomen/Pelvis SIGNED BY: Malgorzata Moise Ct June 08, 2018 12:[address] ABD/PEL W IVCON Observed: 06/08/2018 Status: F Source: [place] 11:22 AM [facility] REPOSITORY * * *Final Report* * * DATE OF EXAM: Jun 08 2018 11:22AM [facility] 0530 - CT ABD/PEL W IVCON / PROCEDURE REASON: multiple diagnoses * * * * Physician Interpretation * * * * CT ABDOMEN AND PELVIS WITH IV CONTRAST HISTORY: Abdominal pain and distention TECHNIQUE: CT abdomen and pelvis performed using standard technique Contrast: IV: 150 mL of Omnipaque 300 Oral: 50ML Omnipaque [address] Radiation dose: Integrated Dose-length product (DLP) for this visit = 702 mGy*cm. CT Dose Reduction Employed: Automated exposure control(AEC) and iterative recon COMPARISON: 11/05/2010 RESULT: Lower thorax: Calcified granuloma right lower lobe. Liver: No mass. Biliary: No bile duct dilation. Gallbladder is unremarkable. Spleen: No mass. No splenomegaly. Pancreas: No mass or duct dilation. Adrenals: No mass. Kidneys: No mass, calculus or hydronephrosis. Vasculature: The celiac axis and SMA are patent. The portal vein and branches, splenic vein, SMV, and hepatic veins are patent. There are atherosclerotic calcifications without aneurysmal dilation. There is an infrarenal IVC filter. Below the filter, there is diffuse thrombus throughout the IVC and at least bilateral common iliac veins. Circumaortic left renal vein. GI tract: No dilation or wall thickening. Colonic diverticulosis. Appendix within normal limits. Small hiatal hernia. Lymph nodes: No abdominal or pelvic lymphadenopathy. Mesentery/Peritoneum: No ascites or mass. Pelvis: No mass, ascites or fluid collection. Bones/Soft Tissues: Degenerative changes. Fat-containing umbilical hernia. IMPRESSION: EXTENSIVE THROMBUS THROUGHOUT THE IVC AND COMMON ILIAC VEINS WITHOUT PROPAGATION ABOVE THE IVC FILTER. COMMUNICATION: Communicated with: Dr. Alas on 06/10/2018 at 09:55. Tire Service Technician: ELIZABETH Transcribe Date/Time: Jun 10 2018 9:22A Dictated by : GALDINO JO MD This examination was interpreted and the report reviewed and electronically signed by: GALDINO JO MD on Jun 10 2018 10:01AM EST [id number] BASIC METABOLIC PANL Collected: 06/03/2018 Status: F Source: [place] 10:20 AM [facility] REPOSITORY TYPE CODE TESTS RESULT OUT OF REFERENCE UNITS RANGE LAB GLU 74-99 mg/dL Glucose 88 Result Comment: The [place] Diabetes Association (ADA) provides guidance for cutoff values for fasting glucose and random glucose. The ADA defines fasting as no caloric intake for at least 8 hours. Fas ting plasma glucose results between 100 to 125 mg/dL indicate increased risk for diabetes (prediabetes). Fasting plasma glucose results greater than or equal to 126 mg/dL meet the criteria for diagnosis of diabetes. In the absence of unequivocal hyperglycemia, results should be confirmed by repeat testing. In a patient with classic symptoms of hyperglycemia or hyperglycemic crisis, random plasma glucose results greater than or equal to 200 mg/dL meet the criteria for diagnosis of diabetes. Reference: Standards of Medical Care in Diabetes 2016, [place] Diabetes Association. Diabetes Care. 2016.39(Suppl 1). LAB BUN 9-24 mg/dL BUN 13 LAB CRET 0.73-1.22 mg/dL Creatinine High 1.23 LAB NA 136-144 mmol/L Sodium 141 LAB K 3.7-5.1 mmol/L Potassium 3.7 LAB CL 97-105 mmol/L Chloride 101 LAB CO2 22-30 mmol/L CO2 25 LAB AGAP 9-18 mmol/L Anion Gap 15 LAB CA 8.5-10.2 mg/dL Calcium, Total 9.9 LAB GFRAA eGFR- Amer. >60 LAB GFRNAA . eGFR-All Other Races 58 Result Comment: eGFR (Estimated GFR) Units of measure: mL/min/1.73 meters squared eGFR is derived from the reexpressed MDRD Study equation using the following parameters: serum creatinine, age, gender and race. The creatinine assay has been calibrated to be traceable to IDMS. An eGFR <60 mL/min/1.73m2 for >3 months is consistent with chronic kidney disease. Refer to KDOQI guidelines for clinical interpretation. In patients with unstable renal function, e.g. those with acute kidney injury, the eGFR may not accurately reflect actual GFR. Performed By: #### BMP #### [facility] [address] [place], [place] [address] CNCO Observed: 06/01/2018 Status: COMPLETED Source: [place] 12:00 AM [facility] REPOSITORY Letter Text June 16, 2018 Jovani Holman [address] [facility] [address] Dear Mr. Holman, The nurses and staff of [facility] hope this letter finds you feeling well and progressing in your recovery. Our staff would like to thank you for trusting and choosing us for your health care needs. It was an honor for us to provide your nursing care. We know that placing our Patients First and maintaining a culture of continuous improvement each and every day, are essential to the success of our organization. I hope your stay with us has been positive. We want to hear from you. If you have any comments, questions or concerns about your hospital stay, please feel free to contact me, Jessica Bloom RN ([phone]) or email me at, [email or web address] Additionally, you will receive a survey in the mail asking you to rate the care you received while in the hospital. Please take the time to complete and send back the survey, as it is essential to our continued success. I personally review all the results and would appreciate your feedback. Thank you in advance for your participation and thank you for choosing the [facility] for your health needs. Sincerely, Nurse Automat Watcher: Jessica Bloom RN ([phone]) [facility] Unit: [address] PROGRESS Observed: 05/31/2018 Status: COMPLETED Source: [place] 9:05 AM [facility] REPOSITORY HNO ID: [id number] Author: Karina Jarvis Service: (none) Author Type: Water Softener Servicer Type: Progress Notes Filed: 05/31/2018 9:06 AM Note Text: Radiology Service Progress Note PATIENT NAME: Jovani Holman DATE OF SERVICE: May 31, 2018 TIME: 9:05 AM PATIENT IDENTITY VERIFICATION COMPLETED USING TWO (2) METHODS: Patient confirmed name verbally and Date of . PATIENT GENDER DATA: Male PATIENT RELEVANT IMPLANT DATA REVIEWED: Not Applicable RADIOLOGY DEPARTMENT: Ultrasound PERIPHERAL IV DATA: Not applicable SIGNED BY: KARINA JARVIS RDMS RVZenon May 31, 2018 9:05 AM [employer] [facility] Observed: 05/31/2018 Status: F Source: [place] 9:03 AM [facility] REPOSITORY * * *Final Report* * * DATE OF EXAM: May 31 2018 9:03AM [facility] 1064 - US ABDOMEN LTD / PROCEDURE REASON: multiple diagnoses * * * * Physician Interpretation * * * * Ultrasound limited abdomen : HISTORY: Indication: Abdominal distension (gaseous) Pelvic and perineal pain Other microscopic hematuria TECHNIQUE: Images obtained: Multiple longitudinal transverse scans of the abdomen..Images stored and permanent archive. Comparison: None. RESULT: Findings: Suggestion of this very small amount of free fluid in the RIGHT lower quadrant. IMPRESSION: Suggestion of very small amount of free fluid in the RIGHT lower quadrant. Tire Service Technician: ELIZABETH Transcribe Date/Time: May 31 2018 10:56A Dictated by : MANUEL BAILON DO This examination was interpreted and the report reviewed and electronically signed by: MANUEL BAILON DO on May 31 2018 10:57AM EST [id number] CBC AND DIFFERENTIAL Collected: 05/30/2018 Status: F Source: [place] 4:07 PM [facility] REPOSITORY TYPE CODE TESTS RESULT OUT OF REFERENCE UNITS RANGE LAB WBC 3.70-11.00 k/uL WBC 5.88 LAB RBC 4.20-6.00 m/uL Low RBC 4.07 LAB HGB 13.0-17.0 g/dL Hemoglobin 13.5 LAB HCT 39.0-51.0 % Hematocrit 41.4 LAB MCV 80.0-100.0 fL MCV High 101.7 LAB MCH 26.0-34.0 pG MCH 33.2 LAB MCHC 30.5-36.0 g/dL MCHC 32.6 LAB RDWCV 11.5-15.0 % RDW-CV 13.6 LAB PLTCT 150-400 k/uL Platelet Count 184 LAB MPV 9.0-12.7 fL MPV 11.5 LAB ANEUT % Neut% 54.2 LAB AANEUT 1.45-7.50 k/uL Abs Neut 3.17 LAB ALYMP % Lymph% 32.5 LAB AALYMP 1.00-4.00 k/uL Abs Lymph 1.91 LAB AMONO % [place]% 10.4 LAB AAMONO <0.87 k/uL Abs [place] 0.61 LAB AEOS % Eosin% 2.4 LAB AAEOS <0.46 k/uL Abs Eosin 0.14 LAB ABASO % Baso% 0.5 LAB AABASO <0.11 k/uL Abs Baso 0.03 LAB AUNRBC 0 /100 WBC NRBCs 0.0 LAB ABNRBC <0.01 k/uL Absolute nRBC <0.01 LAB DTYP DTYPE Auto Diff Performed By: #### CBCDIF, CMP #### [facility] [address] [place], [place] [address] COMP METABOLIC PANEL Collected: 05/30/2018 Status: F Source: [place] 4:07 PM [facility] REPOSITORY TYPE CODE TESTS RESULT OUT OF REFERENCE UNITS RANGE LAB TP 6.3-8.0 g/dL Protein, Total 7.0 LAB ALB 3.9-4.9 g/dL Albumin 4.2 LAB CA 8.5-10.2 mg/dL Calcium, Total 9.7 LAB TBIL 0.2-1.3 mg/dL Bilirubin, Total 0.6 LAB ALKP 36-108 U/L Alkaline Phosphatase 96 LAB AST 14-40 U/L AST 17 LAB GLU 74-99 mg/dL Glucose 99 Result Comment: The [place] Diabetes Association (ADA) provides guidance for cutoff values for fasting glucose and random glucose. The ADA defines fasting as no caloric intake for at least 8 hours. Fas ting plasma glucose results between 100 to 125 mg/dL indicate increased risk for diabetes (prediabetes). Fasting plasma glucose results greater than or equal to 126 mg/dL meet the criteria for diagnosis of diabetes. In the absence of unequivocal hyperglycemia, results should be confirmed by repeat testing. In a patient with classic symptoms of hyperglycemia or hyperglycemic crisis, random plasma glucose results greater than or equal to 200 mg/dL meet the criteria for diagnosis of diabetes. Reference: Standards of Medical Care in Diabetes 2016, [place] Diabetes Association. Diabetes Care. 2016.39(Suppl 1). LAB BUN 9-24 mg/dL BUN 19 LAB CRET 0.73-1.22 mg/dL Creatinine High 1.31 LAB NA 136-144 mmol/L Sodium 141 LAB K 3.7-5.1 mmol/L Potassium 3.9 LAB CL 97-105 mmol/L Chloride 100 LAB CO2 22-30 mmol/L CO2 High 31 LAB AGAP 9-18 mmol/L Anion Gap 10 LAB ALT 10-54 U/L ALT 20 LAB GFRAA eGFR- Amer. >60 LAB GFRNAA . eGFR-All Other Races 54 Result Comment: eGFR (Estimated GFR) Units of measure: mL/min/1.73 meters squared eGFR is derived from the reexpressed MDRD Study equation using the following parameters: serum creatinine, age, gender and race. The creatinine assay has been calibrated to be traceable to IDMS. An eGFR <60 mL/min/1.73m2 for >3 months is consistent with chronic kidney disease. Refer to KDOQI guidelines for clinical interpretation. In patients with unstable renal function, e.g. those with acute kidney injury, the eGFR may not accurately reflect actual GFR. Performed By: #### CBCDIF, CMP #### [facility] [employer] [address] [place], [place] [address] PROGRESS Observed: 05/30/2018 Status: COMPLETED Source: [place] 3:01 PM [facility] REPOSITORY O ID: [id number] Author: Jeff Culp Service: (none) Author Type: Physician Translator Deaf Type: Progress Notes Filed: 05/30/2018 4:01 PM Note Text: Chief Complaint Patient presents with: stomach swelling HPI Jovani Holman is a 67 year old male who presents here today for Above Complaints.. Patient with recent dx of extensive b/l LE DVT and PE. Has been on xarelto. Patient has a ashley filter- IVC filter that is still in place Reports that his swelling in legs has gone down but his abdomen is getting larger. States he went from a 38 waist to a 45. States he feels like he's been punched in the gut but states it's more like a tightness. Not pain. Reports some shortness of breath but no more then normal. Denies n/v/d, constipation. No bloody stool Daily BMs. States last BM was about 1 hour ago Denies urinary symptoms. Last 5 Encounter Wt Readings: Date: Wt: 05/30/2018 95.3 kg (210 lb) 05/11/2018 101.2 kg (223 lb) 05/10/2018 0 kg (0 lb) 05/05/2018 94.8 kg (209 lb) 01/11/2018 93.4 kg (206 lb) Past medical history, appointments, medications, allergies reviewed. Previous Medical History PAST MEDICAL HISTORY Diagnosis Date - Adenomatous colon polyp 10/25/20132008 - Agent orange exposure 02/21/2016 - Bladder neck obstruction 09/19/2008 - BPH (benign prostatic hypertrophy) 09/19/2008 - Chewing tobacco use 01/11/2018 - Chronic obstructive pulmonary disease (COPD) (HCC) - Coronary artery disease due to lipid rich plaque 01/11/2018 Cath around 2010 was told had one vessel at 30% blocked and maker at 50 %. As to be managed medically. - Diverticulosis of colon (without mention of hemorrhage) - Essential hypertension 09/13/2010 -continue home regimen of atenolol 50, amlodipine 5, HCTZ 25 - Ex-smoker 01/11/2018 Started around age 8 up to 2 PPD and quit 2009 - GERD (gastroesophageal reflux disease) 11/23/2013 - Hemorrhage of rectum and anus 10/23/2008 - Idiopathic urticaria 11/10/2006 - Leg edema 09/16/2010 - Lumbago 09/19/2008 - Lupus erythematosus ? if this was a true Dx. - Mixed hyperlipidemia 09/14/2010 Chol 182 Tri 98 HDL 35 LDL 127 - Mixed simple and mucopurulent chronic bronchitis (HCC) 01/22/2016 - RAYRAY (obstructive sleep apnea) AHI 5.1 per 4% AND OS 10/15/2015 Was not able to tolerate - Other pulmonary embolism and infarction 09/13/2010 -pt had PE and DVT in 2005 after back surgery -an IVC filter was placed then and is still in place Was on coumadin for a time and then quit taking it on his own - Postinflammatory pulmonary fibrosis (HCC) 09/16/2010 - Presence of IVC filter 12/29/2014 - PVC's (premature ventricular contractions) 01/11/2018 - SOLAR LENGINES 06/08/2006 - Thoracic aortic aneurysm without rupture (HCC) 02/22/2018 See who patient sees cardio [place] next visit (07/14/2018) Previous Surgical History PAST SURGICAL HISTORY Procedure Laterality Date - 2D ECHO (EXEP) 01/13/2018 EF= 64%, Mild LVH and Tucker Dys, Mild LA enlargement and dialted ascending Aorta - COLONOS W/REM POLYP SNARE 01/06/16 adenomatous polyp - 3 year follow up - COLONOSCOP W/ OR W/O BRSH SPEC 10/23/2008 Colonoscopy, tubular adenoma - KIDNEY SURGERY HX - LEFT HEART CATH,PERCUTANEOUS 09/14/2010 Cardiac cath, L heart - PAST SURGICAL HISTORY OF 1997 partial removal left lung - [facility] - PAST SURGICAL HISTORY OF 3 back surgeries - REMV LENS MATERIAL,PHACOFRAGMT 2009 Cataract Extraction (right and left) - STRESS TEST 01/16/2018 normal Family History FAMILY HISTORY Problem Relation Age of Onset - Diabetes Father - Stroke Father - Stroke Mother - Alzheimer's Disease Mother - Cancer Brother throat ca Patient Allergies ALLERGIES Allergen Reactions - Bactrim [Sulfametho* Other: See Comments sore throat - Levaquin [Levofloxa* GI Upset Current Medications Current Outpatient Prescriptions on File Prior to Visit: rivaroxaban (XARELTO) 15 mg tablet Take 1 tablet by mouth twice daily. atorvastatin (LIPITOR) 10 mg tablet Take 2 tablets by mouth once daily. doxazosin (CARDURA) 8 mg tablet Take 1 tablet by mouth every evening. hydrochlorothiazide (HYDRODIURIL, ESIDRIX) 25 mg tablet Take 1 tablet by mouth once daily. omeprazole (PRILOSEC) 20 mg capsule Take 1 capsule by mouth daily before breakfast. 1/2 hr before meal. tiZANidine (ZANAFLEX) 4 mg tablet Take 1 tablet by mouth every 8 hours as needed (muscle spasms). (Patient not taking: Reported on 05/11/2018 ) predniSONE (DELTASONE) 20 mg tablet 3 tabs a day by mouth for the next 5 days (Patient not taking: Reported on 05/30/2018 ) aspirin, enteric coated (ASPIRIN, ENTERIC COATED) 81 mg EC tablet Take 81 mg by mouth once daily. glucosamine/chondr blake A sod (OSTEO BI-FLEX ORAL) Take by mouth. No current facility-administered medications on file prior to visit. Social History Social History Marital status: Spouse name: Years of education: Number of children: 3 Social History Main Topics Smoking status: Former Smoker Packs/day: 0.50 Years: 40.00 Types: Cigarettes Quit date: 12/04/2010 Smokeless tobacco: Current User Types: Chew Comment: quit smoking and chewing tobacco Alcohol use: No Drug use: No Review of Symptoms REVIEW OF SYSTEMS GENERAL: No weight loss, malaise or fevers RESPIRATORY: Negative for cough, hemoptysis, wheezing, COPD, dyspnea or shortness of breath CARDIOVASCULAR: Negative for chest pain, leg swelling, CHF or palpitations GI: See HPI EXAM: BP 126/86 (BP Site: Right Arm, BP Position: Sitting, BP Cuff Size: Regular Adult) Pulse 102 Temp 36.4 ?C (97.5 ?F) Resp 20 Ht 175.3 cm (5' 9) Wt 95.3 kg (210 lb) SpO2 98% BMI 31.01 kg/m? General Appearance: Well appearing, alert, in no acute distress, well-hydrated, well nourished.. Lungs: Lungs clear to auscultation. No wheezing, rhonchi, rales. Heart: RRR without murmur, gallop, or rubs. No ectopy. Abdomen: Decreased Bowel sounds. Abdomen soft and some pressure to palp of lower quad and suprapubic region. No rebound or guarding. No organomegaly noted. Peripheral Pulses: Normal. Health Maintenance List BP CONTROLLED (<130/80) due on 1966 DTAP,TDAP,TD(1 - Tdap) due on 1967 HEPATITIS C SCREENING due on 1992 LDL CHOLESTEROL due on 04/21/2018 STATIN MED ADHERENCE due on 06/05/2018 COLORECTAL CANCER SCREENING,SEE MODIFIER due on 01/05/2019 ANNUAL PCP TEAM CHRONIC DISEASE VISIT due on 05/10/2019 DIABETES SCREEN due on 04/21/2020 LIPID SCREEN due on 04/21/2022 ABDOMINAL AORTIC ANEURYSM SCREENING TOPIC Completed ADULT PREVNAR-13 Completed PNEUMOVAX AGE 65 AND OVER WITH 5YR LOOKBACK Completed Data reviewed UA pos for trace blood, leuks and ketones ASSESSMENT/PLAN: 1. Abdominal distension - ICD9: 787.3, ICD10: R14.0 (primary diagnosis) Will get abdominal US of lower quadrants and suprapubic region. Get labs Rule out urinary infection - US ABDOMEN LTD - CBC + DIFF - COMP METABOLIC PANEL 2. Suprapubic pressure - ICD9: 789.09, ICD10: R10.2 Etiology unclear - UA DIP B/O - US ABDOMEN LTD - CBC + DIFF - COMP METABOLIC PANEL - URINE CULTURE 3. Microscopic hematuria - ICD9: 599.72, ICD10: R31.29 UA pos for trace amount of blood, leuks and ketones Will send for culture. - UA DIP B/O - US ABDOMEN LTD - CBC + DIFF - COMP METABOLIC PANEL - URINE CULTURE Patient with instructions that if developing abdominal pain, shortness of breath, chest pain, bloody diarrhea, he is to return to ER. Follow up in 2 weeks or sooner as needed. Discussed possible red flags and when to seek medical attention. BLANCA CAT Observed: 05/30/2018 Status: COMPLETED Source: [place] 3:00 PM [facility] REPOSITORY Office Visit (FAMPWS) JOVANI HOLMAN ([id number]) 1950 M Date Time Provider Department 05/30/18 3:00 PM BRIANA CULP) FAMPWS During your visit today, we recorded the following information about you: Temperature Pulse Respiration Blood pressure 97.5 degrees 102/minute 20/minute 126/86 Weight Height 95.3 kg 1.753 m ZARIA CULP PA-C 05/30/2018 4:01 PM Signed Chief Complaint Patient presents with: stomach swelling HPI Jovani E River is a 67 year old male who presents here today for Above Complaints.. Patient with recent dx of extensive b/l LE DVT and PE. Has been on xarelto. Patient has a ashley filter- IVC filter that is still in place Reports that his swelling in legs has gone down but his abdomen is getting larger. States he went from a 38 waist to a 45. States he feels like he's been punched in the gut but states it's more like a tightness. Not pain. Reports some shortness of breath but no more then normal. Denies n/v/d, constipation. No bloody stool Daily BMs. States last BM was about 1 hour ago Denies urinary symptoms. Last 5 Encounter Wt Readings: Date: Wt: 05/30/2018 95.3 kg (210 lb) 05/11/2018 101.2 kg (223 lb) 05/10/2018 0 kg (0 lb) 05/05/2018 94.8 kg (209 lb) 01/11/2018 93.4 kg (206 lb) Past medical history, appointments, medications, allergies reviewed. Previous Medical History PAST MEDICAL HISTORY Diagnosis Date - Adenomatous colon polyp 10/25/20132008 - Agent orange exposure 02/21/2016 - Bladder neck obstruction 09/19/2008 - BPH (benign prostatic hypertrophy) 09/19/2008 - Chewing tobacco use 01/11/2018 - Chronic obstructive pulmonary disease (COPD) (HCC) - Coronary artery disease due to lipid rich plaque 01/11/2018 Cath around 2010 was told had one vessel at 30% blocked and maker at 50 %. As to be managed medically. - Diverticulosis of colon (without mention of hemorrhage) - Essential hypertension 09/13/2010 -continue home regimen of atenolol 50, amlodipine 5, HCTZ 25 - Ex-smoker 01/11/2018 Started around age 8 up to 2 PPD and quit 2009 - GERD (gastroesophageal reflux disease) 11/23/2013 - Hemorrhage of rectum and anus 10/23/2008 - Idiopathic urticaria 11/10/2006 - Leg edema 09/16/2010 - Lumbago 09/19/2008 - Lupus erythematosus ? if this was a true Dx. - Mixed hyperlipidemia 09/14/2010 Chol 182 Tri 98 HDL 35 LDL 127 - Mixed simple and mucopurulent chronic bronchitis (HCC) 01/22/2016 - RAYRAY (obstructive sleep apnea) AHI 5.1 per 4% AND OS 10/15/2015 Was not able to tolerate - Other pulmonary embolism and infarction 09/13/2010 -pt had PE and DVT in 2005 after back surgery -an IVC filter was placed then and is still in place Was on coumadin for a time and then quit taking it on his own - Postinflammatory pulmonary fibrosis (HCC) 09/16/2010 - Presence of IVC filter 12/29/2014 - PVC's (premature ventricular contractions) 01/11/2018 - SOLAR LENGINES 06/08/2006 - Thoracic aortic aneurysm without rupture (HCC) 02/22/2018 See who patient sees [facility] next visit (07/14/2018) Previous Surgical History PAST SURGICAL HISTORY Procedure Laterality Date - 2D ECHO (EXEP) 01/13/2018 EF= 64%, Mild LVH and Tucker Dys, Mild LA enlargement and dialted ascending Aorta - COLONOS W/REM POLYP SNARE 01/06/16 adenomatous polyp - 3 year follow up - COLONOSCOP W/ OR W/O BRSH SPEC 10/23/2008 Colonoscopy, tubular adenoma - KIDNEY SURGERY HX - LEFT HEART CATH,PERCUTANEOUS 09/14/2010 Cardiac cath, L heart - PAST SURGICAL HISTORY OF 1997 partial removal left lung - [facility] - PAST SURGICAL HISTORY OF 3 back surgeries - REMV LENS MATERIAL,PHACOFRAGMT 2009 Cataract Extraction (right and left) - STRESS TEST 01/16/2018 normal Family History FAMILY HISTORY Problem Relation Age of Onset - Diabetes Father - Stroke Father - Stroke Mother - Alzheimer's Disease Mother - Cancer Brother throat ca Patient Allergies ALLERGIES Allergen Reactions - Bactrim [Sulfametho* Other: See Comments sore throat - Levaquin [Levofloxa* GI Upset Current Medications Current Outpatient Prescriptions on File Prior to Visit: rivaroxaban (XARELTO) 15 mg tablet Take 1 tablet by mouth twice daily. atorvastatin (LIPITOR) 10 mg tablet Take 2 tablets by mouth once daily. doxazosin (CARDURA) 8 mg tablet Take 1 tablet by mouth every evening. hydrochlorothiazide (HYDRODIURIL, ESIDRIX) 25 mg tablet Take 1 tablet by mouth once daily. omeprazole (PRILOSEC) 20 mg capsule Take 1 capsule by mouth daily before breakfast. 1/2 hr before meal. tiZANidine (ZANAFLEX) 4 mg tablet Take 1 tablet by mouth every 8 hours as needed (muscle spasms). (Patient not taking: Reported on 05/11/2018 ) predniSONE (DELTASONE) 20 mg tablet 3 tabs a day by mouth for the next 5 days (Patient not taking: Reported on 05/30/2018 ) aspirin, enteric coated (ASPIRIN, ENTERIC COATED) 81 mg EC tablet Take 81 mg by mouth once daily. glucosamine/chondr blake A sod (OSTEO BI-FLEX ORAL) Take by mouth. No current facility-administered medications on file prior to visit. Social History Social History Marital status: Spouse name: Years of education: Number of children: 3 Social History Main Topics Smoking status: Former Smoker Packs/day: 0.50 Years: 40.00 Types: Cigarettes Quit date: 12/04/2010 Smokeless tobacco: Current User Types: Chew Comment: quit smoking and chewing tobacco Alcohol use: No Drug use: No Review of Symptoms REVIEW OF SYSTEMS GENERAL: No weight loss, malaise or fevers RESPIRATORY: Negative for cough, hemoptysis, wheezing, COPD, dyspnea or shortness of breath CARDIOVASCULAR: Negative for chest pain, leg swelling, CHF or palpitations GI: See HPI EXAM: BP 126/86 (BP Site: Right Arm, BP Position: Sitting, BP Cuff Size: Regular Adult) Pulse 102 Temp 36.4 ?C (97.5 ?F) Resp 20 Ht 175.3 cm (5' 9) Wt 95.3 kg (210 lb) SpO2 98% BMI 31.01 kg/m? General Appearance: Well appearing, alert, in no acute distress, well-hydrated, well nourished.. Lungs: Lungs clear to auscultation. No wheezing, rhonchi, rales. Heart: RRR without murmur, gallop, or rubs. No ectopy. Abdomen: Decreased Bowel sounds. Abdomen soft and some pressure to palp of lower quad and suprapubic region. No rebound or guarding. No organomegaly noted. Peripheral Pulses: Normal. Health Maintenance List BP CONTROLLED (<130/80) due on 1966 DTAP,TDAP,TD(1 - Tdap) due on 1967 HEPATITIS C SCREENING due on 1992 LDL CHOLESTEROL due on 04/21/2018 STATIN MED ADHERENCE due on 06/05/2018 COLORECTAL CANCER SCREENING,SEE MODIFIER due on 01/05/2019 ANNUAL PCP TEAM CHRONIC DISEASE VISIT due on 05/10/2019 DIABETES SCREEN due on 04/21/2020 LIPID SCREEN due on 04/21/2022 ABDOMINAL AORTIC ANEURYSM SCREENING TOPIC Completed ADULT PREVNAR-13 Completed PNEUMOVAX AGE 65 AND OVER WITH 5YR LOOKBACK Completed Data reviewed UA pos for trace blood, leuks and ketones ASSESSMENT/PLAN: 1. Abdominal distension - ICD9: 787.3, ICD10: R14.0 (primary diagnosis) Will get abdominal US of lower quadrants and suprapubic region. Get labs Rule out urinary infection - US ABDOMEN LTD - CBC + DIFF - COMP METABOLIC PANEL 2. Suprapubic pressure - ICD9: 789.09, ICD10: R10.2 Etiology unclear - UA DIP B/O - US ABDOMEN LTD - CBC + DIFF - COMP METABOLIC PANEL - URINE CULTURE 3. Microscopic hematuria - ICD9: 599.72, ICD10: R31.29 UA pos for trace amount of blood, leuks and ketones Will send for culture. - UA DIP B/O - US ABDOMEN LTD - CBC + DIFF - COMP METABOLIC PANEL - URINE CULTURE Patient with instructions that if developing abdominal pain, shortness of breath, chest pain, bloody diarrhea, he is to return to ER. Follow up in 2 weeks or sooner as needed. Discussed possible red flags and when to seek medical attention. BLANCA CAT PA-C 05/30/2018 3:47 PM Addendum Please get labs today. Please don't hesitate to go to ER if developing worsening symptoms, abdominal pain, shortness of breath, or chest pain. Follow up in 2 weeks. Referring Provider: SELF [[id number]] Allergies As of Date: 05/30/2018 Noted Allergy Reaction BACTRIM (SULFAMETHOXAZOLE-TRIMETH*11/18/2008 14 - Other: See Comments Comments: sore throat LEVAQUIN (LEVOFLOXACIN) 06/10/2005 8 - GI Upset Date Reviewed: 05/30/2018 Reviewed by: Mayra Medeiros LPN - Fully Assessed Reason for Visit: stomach swelling [Other] Primary Visit Diagnosis:Abdominal distension [R14.0] Other Visit Diagnoses:Suprapubic pressure [R10.2] Microscopic hematuria [R31.29] Order(s):UA DIP B/O [[id number]] Order #: [id number] ABDOMEN LTD [[id number]] Order #: [id number] FUTURE CBC + DIFF [SQCBCDIF] Order #: [id number] FUTURE COMP METABOLIC PANEL [SQCMP] Order #: [id number] FUTURE URINE CULTURE [SQURCUL] Order #: [id number] Prescriptions as of 05/30/2018 Sig: RIVAROXABAN 15 MG TABLET Take 1 tablet by mouth twice * ATORVASTATIN 10 MG TABLET Take 2 tablets by mouth once * DOXAZOSIN 8 MG TABLET Take 1 tablet by mouth every * HYDROCHLOROTHIAZIDE 25 MG TAB* Take 1 tablet by mouth once d* OMEPRAZOLE 20 MG CAPSULE,JULIET* Take 1 capsule by mouth daily* TIZANIDINE 4 MG TABLET Take 1 tablet by mouth every * Patient not taking: Reported on 05/11/2018 PREDNISONE 20 MG TABLET 3 tabs a day by mouth for the* Patient not taking: Reported on 05/30/2018 ASPIRIN 81 MG TABLET,DELAYED * Take 81 mg by mouth once effie* OSTEO BI-FLEX ORAL Take by mouth. Problem List As Of Date 05/30/2018 Noted Resolved Tobacco use disorder [F17.200] 08/05/2016 SOLAR LENGINES [L81.9] INVALID FOR* Priority: D Idiopathic urticaria [L50.1] INVALID FOR* Priority: D Lumbago [M54.5] INVALID FOR* Priority: M BPH (benign prostatic hypertrophy) [N40.0] INVALID FOR* Priority: C Bladder neck obstruction [N32.0] INVALID FOR* Priority: C Diverticulosis of colon (without mention of hem*INVALID FOR* Priority: C More... More... Essential hypertension [I10] INVALID FOR* Priority: A More... Tobacco abuse [Z72.0] INVALID FOR*08/05/2016 Priority: D More... Other pulmonary embolism and infarction [I26.99]INVALID FOR* Priority: B More... Mixed hyperlipidemia [E78.2] INVALID FOR* Priority: A More... More... 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 Screening for colon cancer [Z12.11] INVALID FOR* Mixed simple and mucopurulent chronic bronchiti*INVALID FOR* Priority: A Agent orange exposure [Z77.098] INVALID FOR* Priority: B Coronary artery disease due to lipid rich plaqu*INVALID FOR* Priority: A More... Well adult exam [Z00.00] INVALID FOR* Priority: E More... Chronic obstructive pulmonary disease (COPD) (H* Priority: A Ex-smoker [Z87.891] INVALID FOR* Priority: B More... Chewing tobacco use [Z72.0] INVALID FOR* Priority: B Medicare annual wellness visit, subsequent [Z00*INVALID FOR* Priority: E More... PVC's (premature ventricular contractions) [I49*INVALID FOR* Priority: A Thoracic aortic aneurysm without rupture (HCC) *INVALID FOR* Priority: A More... Lumbar foraminal stenosis [M99.83] INVALID FOR* More... Herniation of intervertebral disc between L4 an*INVALID FOR* Acute deep vein thrombosis (DVT) of proximal ve*INVALID FOR* Other instructions from your clinician: Please get labs today. Please don't hesitate to go to ER if developing worsening symptoms, abdominal pain, shortness of breath, or chest pain. Follow up in 2 weeks. Disposition: Return in about 2 weeks (around 06/13/2018). Follow-up and Disposition History Recorded Encounter Status:Closed by ZARIA DAVIS on 05/30/18 Observed: 05/30/2018 Status: F Source: [facility] URINE CULTURE 3:43 AM [facility] REPOSITORY Sp. Request/Comment: - Specimen received in preservative Culture Result - No growth (<1,000 CFU/ml) Performed By: #### URCUL #### [facility] [address], [place] [address] PROGRESS Observed: 05/11/2018 Status: COMPLETED Source: [place] 3:28 PM [facility] REPOSITORY HNO ID: [id number] Author: Kevin Roberts Service: (none) Author Type: Physician Type: Progress Notes Filed: 05/12/2018 8:08 AM Note Text: Hematology and Medical Oncology PATIENT NAME: Jovani Holman. CLINIC NO: [id number]. ATTENDING PHYSICIAN: Kevin Roberts MD. DATE OF SERVICE:05/11/2018. DIAGNOSIS: history of recurrent DVT and pulmonary embolism. Consultation requested by Dr. Linares for an opinion regarding recurrent DVTs. My final recommendations will be communicated back to the requesting physician by way of shared Medical record or letter to requesting physician via US mail. PERFORMANCE STATUS:80% HPI:67-year-old who presented 2 weeks ago with severe lower back pain secondary to herniated disks. He had 2 previous episode of DVT and pulmonary embolism after surgery. He had an IVC filter placement approximately 10 years ago after his last episode of pulmonary emboli. Patient did not continue his Coumadin, because he does not like taking pills and having frequent monitoring of his blood. Patient has been laying in bed for last 2 weeks because of severe back pain. He presented to [facility] emergency room because of dizziness and hypotension. He had abdominal pain and CT scan of his chest abdomen pelvis no acute abnormality. He was sent home in starting last Tuesday complaining of increased swelling of the lower extremity. He went to [facility] ED and evaluation for his back pain. MRI scan of the lumbar spine shows status post laminectomy L5 S1 with foraminal stenosis. He also had a herniated discs. On Tuesday, venous Doppler of both lower extremity revealed extensive DVT in both proximal veins. CT of the chest also showed a segmental right pulmonary embolus. He started rivaroxaban 15mg twice daily and was sent home on Tuesday. He took some prednisone last week for 5 days and noted increased fluid retention as well as sweating. However, his back pain is much improved. Patient is here today to discuss indication for [facility] anticoagulation therapy. Mr. Berry is a former smoker, recent CT scan of chest show no abnormality. He had a colonoscopy 2 years ago in 2 benign polyp was removed. Patient has no family history or personal history of prostate cancer. he has no unexplained weight loss or weight gain, no change in bowel habits. He denied chest pain, cough, hemoptysis or shortness of breath. His oxygen saturation today is 97% on room air. MEDICATIONS: Current Outpatient Prescriptions: oxyCODONE ir (OXYIR) 5 mg capsule Take 1 capsule by mouth every 4 hours as needed for up to 7 days.Earliest Fill Date: 05/10/18 rivaroxaban (XARELTO) 15 mg tablet Take 1 tablet by mouth twice daily. predniSONE (DELTASONE) 20 mg tablet 3 tabs a day by mouth for the next 5 days atorvastatin (LIPITOR) 10 mg tablet Take 2 tablets by mouth once daily. doxazosin (CARDURA) 8 mg tablet Take 1 tablet by mouth every evening. hydrochlorothiazide (HYDRODIURIL, ESIDRIX) 25 mg tablet Take 1 tablet by mouth once daily. omeprazole (PRILOSEC) 20 mg capsule Take 1 capsule by mouth daily before breakfast. 1/2 hr before meal. tiZANidine (ZANAFLEX) 4 mg tablet Take 1 tablet by mouth every 8 hours as needed (muscle spasms). (Patient not taking: Reported on 05/11/2018 ) aspirin, enteric coated (ASPIRIN, ENTERIC COATED) 81 mg EC tablet Take 81 mg by mouth once daily. glucosamine/chondr blake A sod (OSTEO BI-FLEX ORAL) Take by mouth. No current facility-administered medications for this visit. . ALLERGIES: ALLERGIES Allergen Reactions - Bactrim [Sulfametho* Other: See Comments sore throat - Levaquin [Levofloxa* GI Upset . PAST MEDICAL HISTORY: PAST MEDICAL HISTORY Diagnosis Date - Adenomatous colon polyp 10/25/20132008 - Agent orange exposure 02/21/2016 - Bladder neck obstruction 09/19/2008 - BPH (benign prostatic hypertrophy) 09/19/2008 - Chewing tobacco use 01/11/2018 - Chronic obstructive pulmonary disease (COPD) ([facility]) - Coronary artery disease due to lipid rich plaque 01/11/2018 Cath around 2010 was told had one vessel at 30% blocked and maker at 50 %. As to be managed medically. - Diverticulosis of colon (without mention of hemorrhage) - Essential hypertension 09/13/2010 -continue home regimen of atenolol 50, amlodipine 5, HCTZ 25 - Ex-smoker 01/11/2018 Started around age 8 up to 2 PPD and quit 2009 - GERD (gastroesophageal reflux disease) 11/23/2013 - Hemorrhage of rectum and anus 10/23/2008 - Idiopathic urticaria 11/10/2006 - Leg edema 09/16/2010 - Lumbago 09/19/2008 - Lupus erythematosus ? if this was a true Dx. - Mixed hyperlipidemia 09/14/2010 Chol 182 Tri 98 HDL 35 LDL 127 - Mixed simple and mucopurulent chronic bronchitis (HCC) 01/22/2016 - ARYRAY (obstructive sleep apnea) AHI 5.1 per 4% AND OS 10/15/2015 Was not able to tolerate - Other pulmonary embolism and infarction 09/13/2010 -pt had PE and DVT in 2005 after back surgery -an IVC filter was placed then and is still in place Was on coumadin for a time and then quit taking it on his own - Postinflammatory pulmonary fibrosis (HCC) 09/16/2010 - Presence of IVC filter 12/29/2014 - PVC's (premature ventricular contractions) 01/11/2018 - SOLAR LENGINES 06/08/2006 - Thoracic aortic aneurysm without rupture (HCC) 02/22/2018 See who patient sees [facility] next visit (07/14/2018) . PAST SURGICAL HISTORY: PAST SURGICAL HISTORY Procedure Laterality Date - 2D ECHO (EXEP) 01/13/2018 EF= 64%, Mild LVH and Tucker Dys, Mild LA enlargement and dialted ascending Aorta - COLONOS W/REM POLYP SNARE 01/06/16 adenomatous polyp - 3 year follow up - COLONOSCOP W/ OR W/O BRSH SPEC 10/23/2008 Colonoscopy, tubular adenoma - KIDNEY SURGERY HX - LEFT HEART CATH,PERCUTANEOUS 09/14/2010 Cardiac cath, L heart - PAST SURGICAL HISTORY OF 1997 partial removal left lung - [facility] - PAST SURGICAL HISTORY OF 3 back surgeries - REMV LENS MATERIAL,PHACOFRAGMT 2009 Cataract Extraction (right and left) - STRESS TEST 01/16/2018 normal . FAMILY HISTORY: FAMILY HISTORY Problem Relation Age of Onset - Diabetes Father - Stroke Father - Stroke Mother - Alzheimer's Disease Mother - Cancer Brother throat ca . SOCIAL HISTORY:Social History Marital status: Spouse name: Years of education: Number of children: Social History Main Topics Smoking status: Former Smoker Packs/day: 0.50 Years: 40.00 Types: Cigarettes Quit date: 12/04/2010 Smokeless tobacco: Current User Types: Chew Comment: quit smoking and chewing tobacco Alcohol use: No Drug use: No . REVIEW OF SYSTEMS: CONSTITUTIONAL: No fevers, chills, nightsweats, unintended weight loss HEENT: Denies frequent or severe heaches, nasal congestion/sinus symptoms, problematic allergy problems. EYES: No diplopia or blurry vision. CARDIOVASCULAR: No chest pain, dyspnea, palpitations, orthopnea, PND, ankle edema. PULM: No dyspnea, unexplained cough. GI: No dysphagia/odynophagia, problematic reflux, constipation, diarrhea, changes in stool habits, hematochezia, melena. : No new urinary complaints, including dysuria, gross hematuria or pyuria. NEURO: No new balance problems, peripheral weakness/paresthesias or numbness of concern. MUSC-SKEL: No new joint pain, swelling, or erythema. + lower back pain with sciatica PSY: No concerns regarding depression, anxiety or panic. INTEGUMENTARY: No new skin changes (rash, new or changing mole, new growth) PHYSICAL EXAMINATION: 67-year-old gentleman well-nourished well-developed in no acute distress. BP 141/71 Pulse 91 Temp (Src) 98.2 (Tympanic) Ht 5' 7.25 (1.71m) Wt 223 lb (101.2kg) BMI 34.67 kg/(m2). HEENT: Head is normocephalic, atraumatic. Sclerae white, conjunctivae pink. PEERL. EOMs are intact. Oropharynx is benign. LYMPHATICS: There is no palpable adenopathy in the neck, supraclavicular region, axillae, or groin. LUNGS: Lungs are clear to percussion and auscultation. diminished breath sounds on bases. HEART: Heart is normal without murmurs, gallops, or rubs. ABDOMEN: Soft and nontender without organomegaly. No masses can be palpated. EXTREMITIES: Are +1 edema both legs, peripheral pulses intact with normal capillary refill. NEUROLOGIC: Exam is physiologic ASSESSMENT: 67-year-old gentleman with history of pulmonary embolism and recurrent DVT; status post IVC filter placement 10 years ago. PLAN: - Continue Xarelto 15mg twice daily x 21 days, then Xarelto 20mg once daily for life or warfarin for life - He need to be on lifelong anticoagulation therapy because of history of multiple PEs and recurrent DVTs as well as a [place] filter. No further workup or evaluation is needed at this time. Advoid aspirin or NSAIDs while taking Xarelto. I spent 45 minutes in the visit, with more than 50% of the total [id number]-[id number]-ktre time of the visit in counseling / coordination of care. The patient and family were allowed enough time to ask questions. All questions were answered to their satisfaction. Patient and family verbalized understanding of treatment plan and agreed to follow up with PCP. Kevin Roberts MD. ELECTRONICALLY SIGNED CNOVSP Observed: 05/11/2018 Status: COMPLETED Source: [place] 3:00 PM [facility] REPOSITORY Visit (SP) Office ([place]) JOVANI HOLMAN ([id number]) 1950 M Date Time Provider Department 05/11/18 3:00 PM KEVIN ROBERTS During your visit today, we recorded the following information about you: Temperature Pulse Blood pressure Weight 98.2 degrees 91/minute 141/71 101.2 kg Height 1.708 m Kevin Roberts MD 05/11/2018 3:22 PM Signed Continue Xarelto 15mg twice daily x 21 days; Xarelto 20mg once daily or Coumadin for life. Kevin Roberts MD 05/12/2018 8:08 AM Signed Hematology and Medical Oncology PATIENT NAME: Jovani Holman. CLINIC NO: [id number]. ATTENDING PHYSICIAN: Kevin Roberts MD. DATE OF SERVICE:05/11/2018. DIAGNOSIS: history of recurrent DVT and pulmonary embolism. Consultation requested by Dr. Linares for an opinion regarding recurrent DVTs. My final recommendations will be communicated back to the requesting physician by way of shared Medical record or letter to requesting physician via [place] mail. PERFORMANCE STATUS:80% HPI:67-year-old who presented 2 weeks ago with severe lower back pain secondary to herniated disks. He had 2 previous episode of DVT and pulmonary embolism after surgery. He had an IVC filter placement approximately 10 years ago after his last episode of pulmonary emboli. Patient did not continue his Coumadin, because he does not like taking pills and having frequent monitoring of his blood. Patient has been laying in bed for last 2 weeks because of severe back pain. He presented to [facility] emergency room because of dizziness and hypotension. He had abdominal pain and CT scan of his chest abdomen pelvis no acute abnormality. He was sent home in starting last Tuesday complaining of increased swelling of the lower extremity. He went to [facility] ED and evaluation for his back pain. MRI scan of the lumbar spine shows status post laminectomy L5 S1 with foraminal stenosis. He also had a herniated discs. On Tuesday, venous Doppler of both lower extremity revealed extensive DVT in both proximal veins. CT of the chest also showed a segmental right pulmonary embolus. He started rivaroxaban 15mg twice daily and was sent home on Tuesday. He took some prednisone last week for 5 days and noted increased fluid retention as well as sweating. However, his back pain is much improved. 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 Mr. Berry is a former smoker, recent CT scan of chest show no abnormality. He had a colonoscopy 2 years ago in 2 benign polyp was removed. Patient has no family history or personal history of prostate cancer. he has no unexplained weight loss or weight gain, no change in bowel habits. He denied chest pain, cough, hemoptysis or shortness of breath. His oxygen saturation today is 97% on room air. MEDICATIONS: Current Outpatient Prescriptions: oxyCODONE ir (OXYIR) 5 mg capsule Take 1 capsule by mouth every 4 hours as needed for up to 7 days.Earliest Fill Date: 05/10/18 rivaroxaban (XARELTO) 15 mg tablet Take 1 tablet by mouth twice daily. predniSONE (DELTASONE) 20 mg tablet 3 tabs a day by mouth for the next 5 days atorvastatin (LIPITOR) 10 mg tablet Take 2 tablets by mouth once daily. doxazosin (CARDURA) 8 mg tablet Take 1 tablet by mouth every evening. hydrochlorothiazide (HYDRODIURIL, ESIDRIX) 25 mg tablet Take 1 tablet by mouth once daily. omeprazole (PRILOSEC) 20 mg capsule Take 1 capsule by mouth daily before breakfast. 1/2 hr before meal. tiZANidine (ZANAFLEX) 4 mg tablet Take 1 tablet by mouth every 8 hours as needed (muscle spasms). (Patient not taking: Reported on 05/11/2018 ) aspirin, enteric coated (ASPIRIN, ENTERIC COATED) 81 mg EC tablet Take 81 mg by mouth once daily. glucosamine/chondr blake A sod (OSTEO BI-FLEX ORAL) Take by mouth. No current facility-administered medications for this visit. . ALLERGIES: ALLERGIES Allergen Reactions - Bactrim [Sulfametho* Other: See Comments sore throat - Levaquin [Levofloxa* GI Upset . PAST MEDICAL HISTORY: PAST MEDICAL HISTORY Diagnosis Date - Adenomatous colon polyp 10/25/20132008 - Agent orange exposure 02/21/2016 - Bladder neck obstruction 09/19/2008 - BPH (benign prostatic hypertrophy) 09/19/2008 - Chewing tobacco use 01/11/2018 - Chronic obstructive pulmonary disease (COPD) (HCC) - Coronary artery disease due to lipid rich plaque 01/11/2018 Cath around 2010 was told had one vessel at 30% blocked and maker at 50 %. As to be managed medically. - Diverticulosis of colon (without mention of hemorrhage) - Essential hypertension 09/13/2010 -continue home regimen of atenolol 50, amlodipine 5, HCTZ 25 - Ex-smoker 01/11/2018 Started around age 8 up to 2 PPD and quit 2009 - GERD (gastroesophageal reflux disease) 11/23/2013 - Hemorrhage of rectum and anus 10/23/2008 - Idiopathic urticaria 11/10/2006 - Leg edema 09/16/2010 - Lumbago 09/19/2008 - Lupus erythematosus ? if this was a true Dx. - Mixed hyperlipidemia 09/14/2010 Chol 182 Tri 98 HDL 35 LDL 127 - Mixed simple and mucopurulent chronic bronchitis (HCC) 01/22/2016 - RAYRAY (obstructive sleep apnea) AHI 5.1 per 4% AND OS 10/15/2015 Was not able to tolerate - Other pulmonary embolism and infarction 09/13/2010 -pt had PE and DVT in 2005 after back surgery -an IVC filter was placed then and is still in place Was on coumadin for a time and then quit taking it on his own - Postinflammatory pulmonary fibrosis (HCC) 09/16/2010 - Presence of IVC filter 12/29/2014 - PVC's (premature ventricular contractions) 01/11/2018 - SOLAR LENGINES 06/08/2006 - Thoracic aortic aneurysm without rupture (HCC) 02/22/2018 See who patient sees [facility] [place] next visit (07/14/2018) . PAST SURGICAL HISTORY: PAST SURGICAL HISTORY Procedure Laterality Date - 2D ECHO (EXEP) 01/13/2018 EF= 64%, Mild LVH and Tucker Dys, Mild LA enlargement and dialted ascending Aorta - COLONOS W/REM POLYP SNARE 01/06/16 adenomatous polyp - 3 year follow up - COLONOSCOP W/ OR W/O BRSH SPEC 10/23/2008 Colonoscopy, tubular adenoma - KIDNEY SURGERY HX - LEFT HEART CATH,PERCUTANEOUS 09/14/2010 Cardiac cath, L heart - PAST SURGICAL HISTORY OF 1997 partial removal left lung - [facility] - PAST SURGICAL HISTORY OF 3 back surgeries - REMV LENS MATERIAL,PHACOFRAGMT 2009 Cataract Extraction (right and left) - STRESS TEST 01/16/2018 normal . FAMILY HISTORY: FAMILY HISTORY Problem Relation Age of Onset - Diabetes Father - Stroke Father - Stroke Mother - Alzheimer's Disease Mother - Cancer Brother throat ca . SOCIAL HISTORY:Social History Marital status: Spouse name: Years of education: Number of children: Social History Main Topics Smoking status: Former Smoker Packs/day: 0.50 Years: 40.00 Types: Cigarettes Quit date: 12/04/2010 Smokeless tobacco: Current User Types: Chew Comment: quit smoking and chewing tobacco Alcohol use: No Drug use: No . REVIEW OF SYSTEMS: CONSTITUTIONAL: No fevers, chills, nightsweats, unintended weight loss HEENT: Denies frequent or severe heaches, nasal congestion/sinus symptoms, problematic allergy problems. EYES: No diplopia or blurry vision. CARDIOVASCULAR: No chest pain, dyspnea, palpitations, orthopnea, PND, ankle edema. PULM: No dyspnea, unexplained cough. GI: No dysphagia/odynophagia, problematic reflux, constipation, diarrhea, changes in stool habits, hematochezia, melena. : No new urinary complaints, including dysuria, gross hematuria or pyuria. NEURO: No new balance problems, peripheral weakness/paresthesias or numbness of concern. MUSC-SKEL: No new joint pain, swelling, or erythema. + lower back pain with sciatica PSY: No concerns regarding depression, anxiety or panic. INTEGUMENTARY: No new skin changes (rash, new or changing mole, new growth) PHYSICAL EXAMINATION: 67-year-old gentleman well-nourished well-developed in no acute distress. BP 141/71 Pulse 91 Temp (Src) 98.2 (Tympanic) Ht 5' 7.25 (1.71m) Wt 223 lb (101.2kg) BMI 34.67 kg/(m2). HEENT: Head is normocephalic, atraumatic. Sclerae white, conjunctivae pink. PEERL. EOMs are intact. Oropharynx is benign. LYMPHATICS: There is no palpable adenopathy in the neck, supraclavicular region, axillae, or groin. LUNGS: Lungs are clear to percussion and auscultation. diminished breath sounds on bases. HEART: Heart is normal without murmurs, gallops, or rubs. ABDOMEN: Soft and nontender without organomegaly. No masses can be palpated. EXTREMITIES: Are +1 edema both legs, peripheral pulses intact with normal capillary refill. NEUROLOGIC: Exam is physiologic ASSESSMENT: 67-year-old gentleman with history of pulmonary embolism and recurrent DVT; status post IVC filter placement 10 years ago. PLAN: - Continue Xarelto 15mg twice daily x 21 days, then Xarelto 20mg once daily for life or warfarin for life - He need to be on lifelong anticoagulation therapy because of history of multiple PEs and recurrent DVTs as well as a Ahsley filter. No further workup or evaluation is needed at this time. Advoid aspirin or NSAIDs while taking Xarelto. I spent 45 minutes in the visit, with more than 50% of the total [id number] time of the visit in counseling / coordination of care. The patient and family were allowed enough time to ask questions. All questions were answered to their satisfaction. Patient and family verbalized understanding of treatment plan and agreed to follow up with PCP. Kevin Roberts MD. ELECTRONICALLY SIGNED Referring Provider: HERMINIO LINARES [[id number]] Allergies As of Date: 05/11/2018 Noted Allergy Reaction BACTRIM (SULFAMETHOXAZOLE-TRIMETH*11/18/2008 14 - Other: See Comments Comments: sore throat LEVAQUIN (LEVOFLOXACIN) 06/10/2005 8 - GI Upset Date Reviewed: 05/11/2018 Reviewed by: rAgelia Dan RN, RN - Fully Assessed Reason for Visit: Consult [173] Primary Visit Diagnosis:Chronic obstructive pulmonary disease, unspecified COPD type ([facility]) [J44.9] Other Visit Diagnoses:Presence of IVC filter [Z95.828] Acute deep vein thrombosis (DVT) of proximal vein of both lower extremities ([facility]) [I82.4Y3] Level of Service: NEW PATIENT VISIT LEVEL 4 [99292] Follow-up and Disposition History Recorded Prescriptions as of 05/11/2018 Sig: OXYCODONE 5 MG CAPSULE Take 1 capsule by mouth every* RIVAROXABAN 15 MG TABLET Take 1 tablet by mouth twice * PREDNISONE 20 MG TABLET 3 tabs a day by mouth for the* ATORVASTATIN 10 MG TABLET Take 2 tablets by mouth once * DOXAZOSIN 8 MG TABLET Take 1 tablet by mouth every * HYDROCHLOROTHIAZIDE 25 MG TAB* Take 1 tablet by mouth once d* OMEPRAZOLE 20 MG CAPSULE,JULIET* Take 1 capsule by mouth daily* TIZANIDINE 4 MG TABLET Take 1 tablet by mouth every * Patient not taking: Reported on 05/11/2018 ASPIRIN 81 MG TABLET,DELAYED * Take 81 mg by mouth once effie* OSTEO BI-FLEX ORAL Take by mouth. Problem List As Of Date 05/11/2018 Noted Resolved Tobacco use disorder [F17.200] 08/05/2016 SOLAR LENGINES [L81.9] INVALID FOR* Priority: D Idiopathic urticaria [L50.1] INVALID FOR* Priority: D Lumbago [M54.5] INVALID FOR* Priority: M BPH (benign prostatic hypertrophy) [N40.0] INVALID FOR* Priority: C Bladder neck obstruction [N32.0] INVALID FOR* Priority: C Diverticulosis of colon (without mention of hem*INVALID FOR* Priority: C More... More... Essential hypertension [I10] INVALID FOR* Priority: A More... Tobacco abuse [Z72.0] INVALID FOR*08/05/2016 Priority: D More... Other pulmonary embolism and infarction [I26.99]INVALID FOR* Priority: B More... Mixed hyperlipidemia [E78.2] INVALID FOR* Priority: A More... More... 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 Screening for colon cancer [Z12.11] INVALID FOR* Mixed simple and mucopurulent chronic bronchiti*INVALID FOR* Priority: A Agent orange exposure [Z77.098] INVALID FOR* Priority: B Coronary artery disease due to lipid rich plaqu*INVALID FOR* Priority: A More... Well adult exam [Z00.00] INVALID FOR* Priority: E More... Chronic obstructive pulmonary disease (COPD) (H* Priority: A Ex-smoker [Z87.891] INVALID FOR* Priority: B More... Chewing tobacco use [Z72.0] INVALID FOR* Priority: B Medicare annual wellness visit, subsequent [Z00*INVALID FOR* Priority: E More... PVC's (premature ventricular contractions) [I49*INVALID FOR* Priority: A Thoracic aortic aneurysm without rupture (HCC) *INVALID FOR* Priority: A More... Lumbar foraminal stenosis [M99.83] INVALID FOR* More... Herniation of intervertebral disc between L4 an*INVALID FOR* Other instructions from your clinician: Continue Xarelto 15mg twice daily x 21 days; Xarelto 20mg once daily or Coumadin for life. Encounter Status:Closed by KEVIN ROBERTS MD on 05/12/18 PROGRESS Observed: 05/10/2018 Status: COMPLETED Source: [place] 9:04 AM [facility] REPOSITORY HNO ID: [id number] Author: Herminio Linares Service: (none) Author Type: Physician Type: Progress Notes Filed: 05/10/2018 12:38 PM Note Text: Transitional Care Management Progress Note The patients TCM visit was performed within the 7 days of discharge. TCM Eligibility Documentation The following information was gathered during the initial Patient Outreach Encounter. No flowsheet data found. If no data exists please enter it manually. If data exists please delete date of discharge and date of initial contact seen below. Patient's Date of discharge: 05/07/2018 Date of initial coordinator contact after discharge: 05/10/2018 Discharge diagnosis: acute bilateral DVT, Right PE, hypotension, acute lumbar back pain secondary to lumbar strain on chronic back pain Medication review completed Yes Elizabeth Howard Ma Provider Documentation: In follow-up of hospitalization, Jovani Holman is a 67 year old male with the chief complaint of f/u for DVT I have reviewed the patient?s last hospital course including diagnostic testing performed during this hospitalization, their discharge medications, and my assessment and plan with the patient and any family members present at today?s visit. Patient had developed low back pain after lifting a100 lb pump last week injuring his lower back. Was seen at the [place] for a routine visit on 05/03/2018 and had hypotension and a syncopal episode. Patient was taken to [facility] and felt the syncope was related to sever low back pain. He had a CT of the abdomen and pelvis and UA and told ok. Patient was released to home and the next day noticed his left foot to be swollen. Patient's called office on 05/05/2018 in regards to patient feeling very weak and dizzy. Was not feeling well. Patient seen in office by FULL STACK ENGINEER and BP was low. Patient had been using a walker dueto concern he may pass out. Patient was directed to [facility]. In ER there on 05/05/2018 pulse ox was 98% on RA, BP was 111/69 pulse of 85. Patient denied any chest pain or shortness of breath. EKG was NSR without acute changes. Trop was neg. Patient was admitted for hypotension and syncope. Patient had an US of his legs done after talking with the hospitalist and found to to have DVT's in both legs. A CT of the chest also showed PE on the right. MRI of the lower back showed small disc herniation at L4-L5 causing mild effacement on the thecal sac. There was also L5-S1 foraminal stenosis. At first it was felt his HCTZ was causing the low BP and it was stopped. Then the DVT's and PE were found. On discharge patient was to restart home meds as well as Xarelto 15 mg twice a day along with zanaflex and oxycodone for the back pain. Patient with swelling in both legs at this time along with the groin. Has discomfort in the groin from the swelling. No chest pain or shortness of breath. Has not had any weakness or dizziness since being discharged. No syncope since being home. At home is sitting in a recliner but not able to get foot rest up as high as it used to. PHYSICAL EXAMINATION: BP 116/70 Pulse 96 Resp 16 General appearance: Well appearing, alert, in no acute distress, well-hydrated, well nourished.} Neck: Supple, no adenopathy; thyroid symmetric, normal size, no bruits Lungs: Lungs clear to auscultation. No wheezing, rhonchi, rales Heart: RRR without murmur, gallop, or rubs. No ectopy Abdomen: Normal abdominal exam, Abdomen soft, non-tender. Bowel sounds normal. No masses, organomegaly Extremities: has perfuse edema in both legs left greater than the right Peripheral pulses: Normal in carotids and radials. Not able to palpate secondary to edema. Neuro: Gait normal. No gross motor or sensor deficits. A/P ASSESSMENT/PLAN: 1. Acute deep vein thrombosis (DVT) of both lower extremities, unspecified vein (HCC) - ICD9: 453.40, ICD10: I82.403 (primary diagnosis) 3rd time - Cont the Xarelto and patient's to [facility] with [facility] to see if will cover this or Eliquis - CONSULT TO VASCULAR SURGERY: To determine if anything invasive will need done due to the extensiveness of the bilateral DVT's - Consult to hematology for coagulation w/u since third episode and has not had a w/u 2. Other acute pulmonary embolism without acute cor pulmonale (HCC) - ICD9: 415.19, ICD10: I26.99 - As above - CONSULT TO VASCULAR SURGERY - Consult to hematology 3. Herniation of intervertebral disc between L4 and L5 - ICD9: 722.10, ICD10: M51.26 - will place on a short course of prednisone. - Will refer to Dr. Gómez in pain management. - TIZANIDINE 4 MG TABLET - OXYCODONE 5 MG CAPSULE 4. Lumbar foraminal stenosis - ICD9: 724.02, ICD10: M99.83 - As above - TIZANIDINE 4 MG TABLET - OXYCODONE 5 MG CAPSULE 5. Coronary artery disease due to lipid rich plaque - ICD9: 414.00, 414.3, ICD10: I25.10, I25.83 - CONSULT TO CARDIOLOGY: Dr. Richards with [facility] 6. Thoracic aortic aneurysm without rupture (HCC) - ICD9: 441.2, ICD10: I71.2 - CONSULT TO CARDIOLOGY as above 7. Acute low back pain without sciatica, unspecified back pain laterality - ICD9: 724.2, ICD10: M54.5 - as above - TIZANIDINE 4 MG TABLET - OXYCODONE 5 MG CAPSULE Signed Prescriptions Disp Refills tiZANidine (ZANAFLEX) 4 mg tablet Sig: Take 1 tablet by mouth every 8 hours as needed (muscle spasms). oxyCODONE ir (OXYIR) 5 mg capsule 0 Sig: Take 1 capsule by mouth every 4 hours as needed for up to 7 days.Earliest Fill Date: 05/10/18 TIEN Class: C-II rivaroxaban (XARELTO) 15 mg tablet Sig: Take 1 tablet by mouth twice daily. predniSONE (DELTASONE) 20 mg tablet 15 tablet 0 Si tabs a day by mouth for the next 5 days Keep appt in early Jul 2018 Time entering room was 9:11 AM and time leaving was 10:06 AM (total face to face time was 55 min) Herminio Linares MD CNOV Observed: 05/10/2018 Status: COMPLETED Source: [place] 9:00 AM [facility] REPOSITORY Office Visit (FAMPWS) JOVANI HOLMAN ([id number]) 1950 M Date Time Provider Department 05/10/18 9:00 AM HERMINIO LINARES [facility]AMPWS During your visit today, we recorded the following information about you: Pulse Respiration Blood pressure 96/minute 16/minute 116/70 Herminio Linares MD 05/10/2018 12:38 PM Signed Transitional Care Management Progress Note The patients TCM visit was performed within the 7 days of discharge. TCM Eligibility Documentation The following information was gathered during the initial Patient Outreach Encounter. No flowsheet data found. If no data exists please enter it manually. If data exists please delete date of discharge and date of initial contact seen below. Patient's Date of discharge: 05/07/2018 Date of initial coordinator contact after discharge: 05/10/2018 Discharge diagnosis: acute bilateral DVT, Right PE, hypotension, acute lumbar back pain secondary to lumbar strain on chronic back pain Medication review completed Yes Elizabeth Howard Ma Provider Documentation: In follow-up of hospitalization, Jovani Holman is a 67 year old male with the chief complaint of f/u for DVT I have reviewed the patient?s last hospital course including diagnostic testing performed during this hospitalization, their discharge medications, and my assessment and plan with the patient and any family members present at today?s visit. Patient had developed low back pain after lifting a100 lb pump last week injuring his lower back. Was seen at the [facility] for a routine visit on 05/03/2018 and had hypotension and a syncopal episode. Patient was taken to [facility] and felt the syncope was related to sever low back pain. He had a CT of the abdomen and pelvis and UA and told ok. Patient was released to home and the next day noticed his left foot to be swollen. Patient's called office on 05/05/2018 in regards to patient feeling very weak and dizzy. Was not feeling well. Patient seen in office by FULL STACK ENGINEER and BP was low. Patient had been using a walker dueto concern he may pass out. Patient was directed to [facility]. In ER there on 05/05/2018 pulse ox was 98% on RA, BP was 111/69 pulse of 85. Patient denied any chest pain or shortness of breath. EKG was NSR without acute changes. Trop was neg. Patient was admitted for hypotension and syncope. Patient had an US of his legs done after talking with the hospitalist and found to to have DVT's in both legs. A CT of the chest also showed PE on the right. MRI of the lower back showed small disc herniation at L4-L5 causing mild effacement on the thecal sac. There was also L5-S1 foraminal stenosis. At first it was felt his HCTZ was causing the low BP and it was stopped. Then the DVT's and PE were found. On discharge patient was to restart home meds as well as Xarelto 15 mg twice a day along with zanaflex and oxycodone for the back pain. Patient with swelling in both legs at this time along with the groin. Has discomfort in the groin from the swelling. No chest pain or shortness of breath. Has not had any weakness or dizziness since being discharged. No syncope since being home. At home is sitting in a recliner but not able to get foot rest up as high as it used to. PHYSICAL EXAMINATION: BP 116/70 Pulse 96 Resp 16 General appearance: Well appearing, alert, in no acute distress, well-hydrated, well nourished.} Neck: Supple, no adenopathy; thyroid symmetric, normal size, no bruits Lungs: Lungs clear to auscultation. No wheezing, rhonchi, rales Heart: RRR without murmur, gallop, or rubs. No ectopy Abdomen: Normal abdominal exam, Abdomen soft, non-tender. Bowel sounds normal. No masses, organomegaly Extremities: has perfuse edema in both legs left greater than the right Peripheral pulses: Normal in carotids and radials. Not able to palpate secondary to edema. Neuro: Gait normal. No gross motor or sensor deficits. A/P ASSESSMENT/PLAN: 1. Acute deep vein thrombosis (DVT) of both lower extremities, unspecified vein (HCC) - ICD9: 453.40, ICD10: I82.403 (primary diagnosis) 3rd time - Cont the Xarelto and patient's to check with [facility] to see if will cover this or Eliquis - CONSULT TO VASCULAR SURGERY: To determine if anything invasive will need done due to the extensiveness of the bilateral DVT's - Consult to hematology for coagulation w/u since third episode and has not had a w/u 2. Other acute pulmonary embolism without acute cor pulmonale (HCC) - ICD9: 415.19, ICD10: I26.99 - As above - CONSULT TO VASCULAR SURGERY - Consult to hematology 3. Herniation of intervertebral disc between L4 and L5 - ICD9: 722.10, ICD10: M51.26 - will place on a short course of prednisone. - Will refer to Dr. Gómez in pain management. - TIZANIDINE 4 MG TABLET - OXYCODONE 5 MG CAPSULE 4. Lumbar foraminal stenosis - ICD9: 724.02, ICD10: M99.83 - As above - TIZANIDINE 4 MG TABLET - OXYCODONE 5 MG CAPSULE 5. Coronary artery disease due to lipid rich plaque - ICD9: 414.00, 414.3, ICD10: I25.10, I25.83 - CONSULT TO CARDIOLOGY: Dr. Richards with [facility] 6. Thoracic aortic aneurysm without rupture (HCC) - ICD9: 441.2, ICD10: I71.2 - CONSULT TO CARDIOLOGY as above 7. Acute low back pain without sciatica, unspecified back pain laterality - ICD9: 724.2, ICD10: M54.5 - as above - TIZANIDINE 4 MG TABLET - OXYCODONE 5 MG CAPSULE Signed Prescriptions Disp Refills tiZANidine (ZANAFLEX) 4 mg tablet Sig: Take 1 tablet by mouth every 8 hours as needed (muscle spasms). oxyCODONE ir (OXYIR) 5 mg capsule 0 Sig: Take 1 capsule by mouth every 4 hours as needed for up to 7 days.Earliest Fill Date: 05/10/18 TIEN Class: C-II rivaroxaban (XARELTO) 15 mg tablet Sig: Take 1 tablet by mouth twice daily. predniSONE (DELTASONE) 20 mg tablet 15 tablet 0 Si tabs a day by mouth for the next 5 days Keep appt in early Jul 2018 Time entering room was 9:11 AM and time leaving was 10:06 AM (total face to face time was 55 min) MD Herminio Romero MD 05/10/2018 10:08 AM Signed [facility] see if [facility] will [facility] Xarelto 20 mg a day or Eliquis 5 mg twice a day and your out of pocket cost. Referring Provider: SELF [[id number]] Allergies As of Date: 05/10/2018 Noted Allergy Reaction BACTRIM (SULFAMETHOXAZOLE-TRIMETH*11/18/2008 14 - Other: See Comments Comments: sore throat LEVAQUIN (LEVOFLOXACIN) 06/10/2005 8 - GI Upset Date Reviewed: 05/10/2018 Reviewed by: Herminio Linares - Fully Assessed Reason for Visit: Hospital F/U [57] Cmt: [facility] Bilateral DVT, Right PE, hypotension, avcute lumbar back pain Primary Visit Diagnosis:Acute deep vein thrombosis (DVT) of both lower extremities, unspecified vein (HCC) [I82.403] Other Visit Diagnoses:Other acute pulmonary embolism without acute cor pulmonale (HCC) [I26.99] Herniation of intervertebral disc between L4 and L5 [M51.26] Lumbar foraminal stenosis [M99.83] Comment:L5-S1 Coronary artery disease due to lipid rich plaque [I25.10, I25.83] Thoracic aortic aneurysm without rupture (HCC) [I71.2] Acute low back pain without sciatica, unspecified back pain laterality [M54.5] Order(s):tiZANidine (ZANAFLEX) 4 mg tabletTake 1 tablet by mouth every 8 hours as needed (muscle spasms).Disp: Rfl: oxyCODONE ir (OXYIR) 5 mg capsuleTake 1 capsule by mouth every 4 hours as needed for up to 7 days. Earliest Fill Date: 05/10/18Disp: Rfl: 0 rivaroxaban (XARELTO) 15 mg tabletTake 1 tablet by mouth twice daily.Disp: Rfl: CONSULT TO CARDIOLOGY [9009] Order #: [id number]: 1 CONSULT TO VASCULAR SURGERY [9062] Order #: [id number]: 1 CONSULT TO PAIN MGT ANESTHESIA [399337] Order #: [id number]: 1 CONSULT TO HEMATOLOGY [0198] Order #: [id number]: 1 predniSONE (DELTASONE) 20 mg tablet3 tabs a day by mouth for the next 5 daysDisp: 15 tabletRfl: 0 Prescriptions as of 05/10/2018 Sig: ATORVASTATIN 10 MG TABLET Take 2 tablets by mouth once * DOXAZOSIN 8 MG TABLET Take 1 tablet by mouth every * HYDROCHLOROTHIAZIDE 25 MG TAB* Take 1 tablet by mouth once d* OMEPRAZOLE 20 MG CAPSULE,JULIET* Take 1 capsule by mouth daily* TIZANIDINE 4 MG TABLET Take 1 tablet by mouth every * OXYCODONE 5 MG CAPSULE Take 1 capsule by mouth every* RIVAROXABAN 15 MG TABLET Take 1 tablet by mouth twice * PREDNISONE 20 MG TABLET 3 tabs a day by mouth for the* ASPIRIN 81 MG TABLET,DELAYED * Take 81 mg by mouth once effie* OSTEO BI-FLEX ORAL Take by mouth. Problem List As Of Date 05/10/2018 Noted Resolved Tobacco use disorder [F17.200] 08/05/2016 SOLAR LENGINES [L81.9] INVALID FOR* Priority: D Idiopathic urticaria [L50.1] INVALID FOR* Priority: D Lumbago [M54.5] INVALID FOR* Priority: M BPH (benign prostatic hypertrophy) [N40.0] INVALID FOR* Priority: C Bladder neck obstruction [N32.0] INVALID FOR* Priority: C Diverticulosis of colon (without mention of hem*INVALID FOR* Priority: C More... More... Essential hypertension [I10] INVALID FOR* Priority: A More... Tobacco abuse [Z72.0] INVALID FOR*08/05/2016 Priority: D More... Other pulmonary embolism and infarction [I26.99]INVALID FOR* Priority: B More... Mixed hyperlipidemia [E78.2] INVALID FOR* Priority: A More... More... 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 Screening for colon cancer [Z12.11] INVALID FOR* Mixed simple and mucopurulent chronic bronchiti*INVALID FOR* Priority: A Agent orange exposure [Z77.098] INVALID FOR* Priority: B Coronary artery disease due to lipid rich plaqu*INVALID FOR* Priority: A More... Well adult exam [Z00.00] INVALID FOR* Priority: E More... Chronic obstructive pulmonary disease (COPD) (H* Priority: A Ex-smoker [Z87.891] INVALID FOR* Priority: B More... Chewing tobacco use [Z72.0] INVALID FOR* Priority: B Medicare annual wellness visit, subsequent [Z00*INVALID FOR* Priority: E More... PVC's (premature ventricular contractions) [I49*INVALID FOR* Priority: A Thoracic aortic aneurysm without rupture (HCC) *INVALID FOR* Priority: A More... Lumbar foraminal stenosis [M99.83] INVALID FOR* More... Herniation of intervertebral disc between L4 an*INVALID FOR* Other instructions from your clinician: [facility] with the [facility] to see if the will cover Xarelto 20 mg a day or Eliquis 5 mg twice a day and your out of pocket cost. Prescriptions ordered this encounter Disp Refills Start End TIZANIDINE 4 MG TABLET 05/10/2018 Class: Med Update Route: ORAL Sig: Take 1 tablet by mouth every 8 hours as needed (muscle spasms). OXYCODONE 5 MG CAPSULE 0 05/10/2018 05/17/2018 Class: Med Update Route: ORAL Sig: Take 1 capsule by mouth every 4 hours as needed for up to 7 days. Earliest Fill Date: 05/10/18 RIVAROXABAN 15 MG TABLET 05/10/2018 Class: Med Update Route: ORAL Sig: Take 1 tablet by mouth twice daily. PREDNISONE 20 MG TABLET 15 t* 0 05/10/2018 Si tabs a day by mouth for the next 5 days Disposition: Return if symptoms worsen or fail to improve. Follow-up and Disposition History Recorded Encounter Status:Closed by HERMINIO LINARES on 05/10/18 12 LEAD ELECTROCARDIOGRAM Observed: 05/09/2018 Status: F Source: [place] 1:42 PM [facility] REPOSITORY [facility] Cardiovascular [place] [address] 12 Lead EKG 05/05/18 1155 MR#: [id number] Acct: [id number] Name: JOVANI HOLMAN Rep #: [id number] : 1950 67 From: Manuel Rajan MD Attending Dr: Nancy Berry MD Status: DIS IN Ordering Dr: Lizzy De La Vega MD Date: 05/05/18 Location: [facility] Sex: M C Admitted: 05/06/18 Test Reason : Blood Pressure : / mmHG Vent. Rate : 080 BPM Atrial Rate : 080 BPM P-R Int : 204 ms QRS Dur : 104 ms QT Int : 392 ms P-R-T Axes : 029 -24 012 degrees QTc Int : 452 ms Normal sinus rhythm Incomplete right bundle branch block Minimal voltage criteria for LVH, may be normal variant Nonspecific T wave abnormality Abnormal ECG Confirmed by MANUEL RAJAN ([id number]), assistant editor RAY CHADWICK ([id number]) on 05/09/2018 1:41:45 PM Referred By: JACLYN Confirmed By:MANUEL RAJAN 05/09/18 1341 Date Manuel Rajan MD CC: Herminio Linares MD; Lizzy De La Vega MD; Nancy Berry MD Signed PROGRESS Observed: 05/09/2018 Status: COMPLETED Source: [place] 8:37 AM [facility] REPOSITORY HNO ID: [id number] Author: Shelly Holland Service: (none) Author Type: Nurse Practitioner Type: Progress Notes Filed: 05/09/2018 8:48 AM Note Text: 05/09/2018 Patient presents with: ER F/U: [facility] after [facility] check[facility] where he passed out. He was told the pain caused him to pass out. CT Scan, EKG, A1C checked. SUBJECTIVE: This is a 67 year old that is here today with his for Above Complaints. We have not yet received records requested. He states that when he passed out, he was sweating, shaky, and he was told that his eyes rolled back. He states that he told him that his stomach was not feeling right, so they ordered a CT and was told that it was normal. Urine test per patient was normal. He is very worried today because he does not feel well. He feels lightheaded, using a walker to get around because he is worried he will pass out. This is not typical for him because he is active and the example he provided was that he pulled his back by lifting a heavy water pump. His BP has been low at home 86/48 and 90/50. He has noticed decreased urination, so he has been pushing fluids. He is worried that there is something else other than the pain that caused him to pass out as the providers at [facility] told him. He and his state that they would feel better if he could go back to the hospital. PAST MEDICAL HISTORY Diagnosis Date - Adenomatous colon polyp 10/25/20132008 - Agent orange exposure 02/21/2016 - Bladder neck obstruction 09/19/2008 - BPH (benign prostatic hypertrophy) 09/19/2008 - Chewing tobacco use 01/11/2018 - Chronic obstructive pulmonary disease (COPD) (HCC) - Coronary artery disease due to lipid rich plaque 01/11/2018 Cath around 2010 was told had one vessel at 30% blocked and maker at 50 %. As to be managed medically. - Diverticulosis of colon (without mention of hemorrhage) - Essential hypertension 09/13/2010 -continue home regimen of atenolol 50, amlodipine 5, HCTZ 25 - Ex-smoker 01/11/2018 Started around age 8 up to 2 PPD and quit 2009 - GERD (gastroesophageal reflux disease) 11/23/2013 - Hemorrhage of rectum and anus 10/23/2008 - Idiopathic urticaria 11/10/2006 - Leg edema 09/16/2010 - Lumbago 09/19/2008 - Lupus erythematosus ? if this was a true Dx. - Mixed hyperlipidemia 09/14/2010 Chol 182 Tri 98 HDL 35 LDL 127 - Mixed simple and mucopurulent chronic bronchitis (HCC) 01/22/2016 - RAYRAY (obstructive sleep apnea) AHI 5.1 per 4% AND OS 10/15/2015 Was not able to tolerate - Other pulmonary embolism and infarction 09/13/2010 -pt had PE and DVT in 2005 after back surgery -an IVC filter was placed then and is still in place Was on coumadin for a time and then quit taking it on his own - Postinflammatory pulmonary fibrosis (HCC) 09/16/2010 - Presence of IVC filter 12/29/2014 - PVC's (premature ventricular contractions) 01/11/2018 - SOLAR LENGINES 06/08/2006 - Thoracic aortic aneurysm without rupture (HCC) 02/22/2018 See who patient sees cardio [place] next visit (07/14/2018) ALLERGIES Bactrim [Sulfamethoxazole-Trimethoprim]; Levaquin [Levofloxacin] MEDICATIONS Current Outpatient Prescriptions: aspirin, enteric coated (ASPIRIN, ENTERIC COATED) 81 mg EC tablet Take 81 mg by mouth once daily. doxazosin (CARDURA) 8 mg tablet Take 1 tablet by mouth every evening. hydrochlorothiazide (HYDRODIURIL, ESIDRIX) 25 mg tablet Take 1 tablet by mouth once daily. omeprazole (PRILOSEC) 20 mg capsule Take 1 capsule by mouth daily before breakfast. 1/2 hr before meal. atorvastatin (LIPITOR) 10 mg tablet Take 2 tablets by mouth once daily. glucosamine/chondr blake A sod (OSTEO BI-FLEX ORAL) Take by mouth. No current facility-administered medications for this visit. Medications and allergies reviewed by this provider. SOCIAL HISTORY Social History Marital status: Spouse name: Years of education: Number of children: Social History Main Topics Smoking status: Former Smoker Packs/day: 0.50 Years: 40.00 Types: Cigarettes Quit date: 12/04/2010 Smokeless tobacco: Current User Types: Chew Comment: quit smoking and chewing tobacco Alcohol use: No Drug use: No REVIEW OF SYSTEMS seeHPI OBJECTIVE: BP 106/68 (BP Site: Left Arm, BP Position: Sitting, BP Cuff Size: Regular Adult) Pulse 84 Resp 16 Wt 94.8 kg (209 lb) BMI 30.86 kg/m? . Vital signs reviewed by this provider. PHYSICAL EXAMINATION: General appearance: appears nervous, alert, in no acute distress, well-hydrated, well nourished. Skin: Skin color, texture, turgor normal, no suspicious rashes or lesions Head: Normocephalic, no masses, lesions, tenderness or abnormalities Eyes: Anicteric sclera. Pupils are equally round and reactive to light. Extraocular movements are intact. Neck: Supple, no adenopathy; thyroid symmetric, normal size, no bruits Lungs: Lungs clear to auscultation. No wheezing, rhonchi, rales Heart: RRR without murmur, gallop, or rubs. No ectopy Extremities: No deformities, edema, skin discoloration, clubbing or cyanosis. Good capillary refill. , Pulses: 2+ Neuro: Negative findings: speech normal, mental status intact ASSESSMENT/PLAN: 1. Syncope, unspecified syncope type - ICD9: 780.2, ICD10: R55 (primary diagnosis) - [facility] including past history of thoracic aortic aneurysm and other significant history related to current symptoms - pt encouraged to follow up with PCP after hospital stay - requested records from [facility] 2. Generalized weakness - ICD9: 780.79, ICD10: R53.1 3. Fatigue, unspecified type - ICD9: 780.79, ICD10: R53.83 4. Generalized pain - ICD9: 780.96, ICD10: R52 5. Lightheaded - ICD9: 780.4, ICD10: R42 6. Hypotension, unspecified hypotension type - ICD9: 458.9, ICD10: I95.9 Shelly Holland APRN.CHAIR CANER DISCHARGE SUMMARY Observed: 05/07/2018 Status: F Source: [place] 12:51 PM [facility] REPOSITORY [facility] Medical Records Department [address] [place] [id number] Discharge Summary 05/07/18 1010 MR#: [id number] Acct: [id number] Name: JOVANI HOLMAN Rep #: [id number] : 1950 67 From: Karina Swift FULL STACK ENGINEER-C PCP: Herminio Linares MD Status: DIS IN Y Location: [facility] [id number] <Karina Swift - Last Filed: 05/07/18 11:00> Discharge Date and Diagnosis Date of Admission: 05/05/18 Date of Discharge: 05/07/18 - Primary Discharge Diagnosis 1. Acute bilateral DVT, right PE 2. Hypotension 2. Acute lumbar back pain secondary to lumbar strain on chronic back pain - Secondary Discharge Diagnosis Chronic Problems Hypertension (Chronic) Hyperlipidemia (Chronic) GERD (gastroesophageal reflux disease) (Chronic) CAD (coronary artery disease) (Chronic) COPD (chronic obstructive pulmonary disease) (Chronic) RAYRAY (obstructive sleep apnea) (Chronic) BPH (benign prostatic hyperplasia) (Chronic) Hospital Course and Treatment Imaging Results: Diagnostic Data Chest X-Ray 05/05/18 11:45 IMPRESSION: 1. Borderline to mild cardiac enlargement with mildly tortuous, calcified thoracic aorta. No CHF. 2. Scarring versus subsegmental atelectasis in the right lung base and left apex. Calcified granuloma also noted in the right lower lobe. 3. Right paratracheal mediastinal fullness, likely a thyroid goiter. Correlation with thyroid ultrasound may be useful. Electronically Signed: Rikki Shukla MD at 12:22 EDT , Service support , Lumbar Spine MRI 05/05/18 15:41 IMPRESSION: 1. Small L4-5 disc extrusion. 2. Status post left laminectomy at L5-S1. Residual scar is not evaluated without contrast. 3. L5-S1 foraminal stenosis. Electronically Signed: Mayra Brown MD at 18:42 EDT Tel , Service support , Chest CTA 05/06/18 09:11 IMPRESSION: Pulmonary embolism on the right. N.B. : The above information has been verbally conveyed by Houston Felix MD to Dr. Berry, Referring Physician, on 05/06/2018 10:47:55 (ET). Electronically Signed: Houston Felix MD at 10:18 EDT , Service support , KUB X-Ray 05/06/18 14:30 IMPRESSION: IVC filter in situ. No acute process. Electronically Signed: Mayra Brown MD at 19:07 EDT Tel , Service support , Summary of Care Provided: The patient is a 67 year old M admitted 05/05/2018 due to dizziness, low blood pressure, lower back pain. 1. Acute bilateral extensive DVT/right PE-initiated on Xarelto. Patient has a history of PE/DVT status post IVC filter placement approximately [address] of chest showed pulmonary embolism on the right. Patient denies chest pain, shortness of breath. Echocardiogram showed an EF of 55-60%, RVSP estimated to be 40 mmHg. KUB showed prior IVC filter intact. DVT/PE appear unprovoked. Recommend further outpatient evaluation, hematology referral including hypercoagulable panel. Patient will be discharged on Xarelto 15 mg twice daily for 21 days. Stop date 05/26/18. He will then take Xarelto 20 mg daily. Patient follows with [place] clinic and will obtain further prescriptions through them. Follow-up with primary care physician in 2-3 days. 2. Hypotension, dizziness-resolved. Recent syncopal episode in which patient underwent workup at [facility] included CT of abdomen pelvis due to lower abdominal and back pain which demonstrated evidence of cystitis, no other acute abnormalities. Troponin negative 2. UA unremarkable. Orthostatic vitals negative. Echocardiogram showed an EF of 55-60%, RVSP estimated to be 40 mmHg. 2. Acute on chronic lumbar back pain-history of back surgery 3. MRI of lumbar spine showed small L4-L5 disc extrusion, status post left laminectomy at L5-S1, L5-S1 foraminal stenosis. Patient had recent injury with lumbar back strain. Discharged with OxyIR 5 mg every 4 as needed times 3 days until patient is able to see primary care physician. OARRS report showed no prior narcotic prescriptions. If back pain does not improve, patient my benefit from steroid burst to see if this provides some relief. 3. CAD-cardiac cath in 2010 with no documented intervention, managed medically. Patient had recent stress test 01/16/2018 which was negative for ischemia which was completed at [facility]. LVEF 66%. Continue aspirin, statin. 4. Hypertension-stable, continue home HCTZ regimen at discharge. 5. Hyperlipidemia-continue statin. 6. COPD-no acute exacerbation. 7. GERD-continue PPI regimen. 8. BPH-continue home doxazosin regimen. 9. History of tobacco use-encourage continued cessation. 10. RAYRAY-has not tolerated CPAP in the past. General: Alert, Oriented x3, Cooperative, No apparent distress HEENT: Atraumatic, PERRLA, EOMI, Normocephalic Neck: Supple, No JVD, Negative Carotid Bruits Lungs: Clear to auscultation, Normal air movement Cardiovascular: Regular rate, Regular Rhythm, Normal S1, Normal S2, No murmurs Abdomen: Bowel Sounds Present, Soft, Non Tender, Non-Distended, Obese Extremities: No clubbing, No cyanosis, Capillary Refill Less than 3 Seconds, Edema - Minimal nonpitting lower extremity edema Skin: No rashes, No breakdown Musculoskeletal: No Tenderness to Palpation of Joints or Extremities Neurological: Cranial nerves II-XII grossly intact, Neuro grossly intact Psych/Mental Status: Normal Affect, Appropriate Patient seen exam prior to discharge. Physical assessment as noted above. Patient is stable for discharge home with the follow-up recommendations as noted above. This patient was seen by SOHA Skelton under the supervision of Dr. Berry. Discharge Diet: Low fat/ Low Cholesterol Discharge Activity: Return to Normal Activity Call your doctor if you observe: Shortness of breath, Dizziness, Fainting spells, Chest pain, Increased palpitations (irregular heartbeat) Home Medications: Medications to take at Discharge Aspirin [Aspir-Low] 40.5 mg PO DAILY 06/29/17 Atorvastatin Calcium 10 mg PO QHS 06/29/17 Doxazosin Mesylate 8 mg PO QHS 06/29/17 Hydrochlorothiazide [Hctz] 25 mg PO DAILY 06/29/17 Omeprazole 20 mg PO DAILY 06/29/17 Docusate Sodium [Stool Softener] 100 mg PO DAILY PRN PRN 05/05/18 Tizanidine HCl [Zanaflex] 4 mg PO Q8H PRN PRN 05/05/18 Oxycodone [Oxyir] 5 mg PO Q4H PRN PRN 3 Days #18 tablet 05/07/18 Rivaroxaban [Xarelto] 15 mg PO BIDCM #38 tab 05/07/18 Following Prescrptions Were Given to Patient: Oxycodone [Oxyir] 5 mg PO Q4H PRN PRN 3 Days #18 tablet PRN Reason: Severe Pain (6-10/10) Rivaroxaban [Xarelto] 15 mg PO BIDCM #38 tab Primary Care Physician: Herminio Linares MD [Primary Care Provider] - Please follow up with your Primary Care Physician in: 1 Week Please Follow Up With: [facility] When: This week, 2-3 days Disposition: Home Minutes spent on discharge:: 35 Patient Condition:: Stable Medical Necessity - Tobacco Use Smoking Status: Former smoker Tobacco Use: Cigarettes Meaningful Use Info Meaningful Use Diagnoses (Choose all that apply): VTE - VTE Anticoag overlap given w/in hospital stay or rx'd at dc?: Yes Pt receive overlap for 5 days?: Yes <Nancy Berry - Last Filed: 05/07/18 12:50> Discharge Date and Diagnosis - Secondary Discharge Diagnosis Chronic Problems Hypertension (Chronic) Hyperlipidemia (Chronic) GERD (gastroesophageal reflux disease) (Chronic) CAD (coronary artery disease) (Chronic) COPD (chronic obstructive pulmonary disease) (Chronic) RAYRAY (obstructive sleep apnea) (Chronic) BPH (benign prostatic hyperplasia) (Chronic) Hospital Course and Treatment Operations: None Procedures: 2-D Echocardiogram Summary of Care Provided: Patient seen by Karina HOYOS under my supervision. The patient is a 67 year old M was admitted by the ED with complaint of low blood pressure, dizziness and low back pain with radiation to the groin and bilateral lower extremity swelling. Duplex was positive for extensive DVT in the left lower extremity and DVT in the right lower extremity. CT PE done was positive for right-sided segmental pulmonary emboli. Patient was started on Xarelto. Hydrochlorothiazide was initially held on account of hypotension. Hypotension subsequently resolved. He had been seen at [facility] in [place] on 05/03/[address] PE done then which was negative for any possible malignancy. He had a colonoscopy 2 years ago which was normal. 2D echo showed moderate left ventricular hypertrophy with EF of 55-60% with mildly dilated right ventricle and RSVP of 40 mmHg indicating pulmonary hypertension. Patient was managed for DVT and PE which appeared to be unprovoked. As this is a second DVT and PE, patient was advised that he would need lifelong anticoagulation. Patient had an IVC filter in place from his first PE 10 years ago. Discussed with general surgery and recommended that he follow-up with a vascular surgeon to see if removal of the filter was indicated. Patient was discharged on Xarelto 20 mg twice daily for 21 days after which she was going to continue Xarelto 20 mg daily. Patient states care doctor at the [facility] within 1 week to get further scripts for xarelto filled. Patient seen and examined prior to discharge. He had no complaints and felt well. He denied any fever, chills, cough, chest pain, shortness of breath, abdominal pain, diarrhea vomiting. 12 point review of systems otherwise negative. Labs and vitals reviewed. This is reviewed and reconciled. o/e: Vital Signs Height 5 ft 10 in Weight: 212 lb General: Alert, Oriented x3, Cooperative, No apparent distress HEENT: Atraumatic, PERRLA, EOMI, Normocephalic Neck: Supple, No JVD, Negative Carotid Bruits Lungs: Clear to auscultation, Normal air movement Cardiovascular: Regular rate, Regular Rhythm, Normal S1, Normal S2, No murmurs Abdomen: Bowel Sounds Present, Soft, Non Tender, Non-Distended, Obese Extremities: No clubbing, No cyanosis, Capillary Refill Less than 3 Seconds, Edema - Minimal nonpitting lower extremity edema Skin: No rashes, No breakdown Musculoskeletal: No Tenderness to Palpation of Joints or Extremities Neurological: Cranial nerves II-XII grossly intact, Neuro grossly intact Psych/Mental Status: Normal Affect, Appropriate Plan as stated above. He was also given a script for PO oxycodone 5mg q4prn for 3 days (18 tablets in total). OARRS checked by Karina HOYOS; no red flags seen. Meaningful Use Info Meaningful Use Diagnoses (Choose all that apply): VTE - VTE Anticoag overlap given w/in hospital stay or rx'd at dc?: Yes Pt receive overlap for 5 days?: Yes Code Visit Inpatient E AND M: [id number] Disch Hosp 05/07/18 1101 <Electronically signed by Karina HOYOS> Date Karina HOYOS 05/07/18 1251<Electronically signed by Nancy Berry MD> Cosigner Signature (if applicable): Date Nancy Berry MD CC: SOHA Swift; [facility]; Herminio Linares MD; Nancy Berry MD Signed DISCHARGE INSTRUCTION Observed: 05/07/2018 Status: F Source: [place] 10:55 AM [facility] REPOSITORY [facility] Medical Records Department [address] [place] [address] Instructions for Home/Discharge Instructions 05/07/18 1002 MR#: [id number] Acct: [id number] Name: JOVANI HOLMAN Rep #: [id number] : 1950 67 From: Karina HOYOS PCP: Herminio Linares MD Status: ADM IN - Discharge Diagnoses Current Active Problems: Current Active and Chronic Problems Hypertension (Chronic) Hyperlipidemia (Chronic) GERD (gastroesophageal reflux disease) (Chronic) CAD (coronary artery disease) (Chronic) COPD (chronic obstructive pulmonary disease) (Chronic) RAYRAY (obstructive sleep apnea) (Chronic) BPH (benign prostatic hyperplasia) (Chronic) You will use the following diet at home:: Cardiac Discharge Activity: Return to Normal Activity Call your doctor if you observe: Shortness of breath, Dizziness, Fainting spells, Chest pain, Increased palpitations (irregular heartbeat) Allergies/Adverse Reactions: Allergies No Known Allergies Allergy (Verified 05/05/18 11:59) Medications to take at Discharge Aspirin [Aspir-Low] 40.5 mg PO DAILY 06/29/17 Atorvastatin Calcium 10 mg PO QHS 06/29/17 Doxazosin Mesylate 8 mg PO QHS 06/29/17 Hydrochlorothiazide [Hctz] 25 mg PO DAILY 06/29/17 Omeprazole 20 mg PO DAILY 06/29/17 Docusate Sodium [Stool Softener] 100 mg PO DAILY PRN PRN 05/05/18 Tizanidine HCl [Zanaflex] 4 mg PO Q8H PRN PRN 05/05/18 Oxycodone [Oxyir] 5 mg PO Q4H PRN PRN 3 Days #18 tablet 05/07/18 Rivaroxaban [Xarelto] 15 mg PO BIDCM #38 tab 05/07/18 The following prescriptions were given: Oxycodone [Oxyir] 5 mg PO Q4H PRN PRN 3 Days #18 tablet PRN Reason: Severe Pain (6-06/14) Rivaroxaban [Xarelto] 15 mg PO BIDCM #38 tab Primary Care Physician: Herminio Linares MD [Primary Care Provider] - Please follow up with your Primary Care Physician in: 1 Week Test Results: Test results from this visit will be discussed in further detail at your follow-up appointment, if applicable. Please Follow Up With: [facility] When: This week, 2-3 days Proposed Discharge Date: 05/07/18 05/07/18 1055 <Electronically signed by Karina HOYOS> Date Karina HOYOS CC: Herminio Linares MD CBC-COMPLETE BLOOD CNT Collected: 05/07/2018 Status: F Source: [place] NO DIFF 5:08 AM [facility] REPOSITORY TYPE CODE TESTS RESULT OUT OF RANGE REFERENCE UNITS LAB L100.1000 4.4-11.0 K/mm3 Normal WBC 6.5 LAB L100.1200 4.6-6.2 M/mm3 Low RBC 3.61 LAB L100.1300 13.0-16.5 g/dl Low HGB 11.9 LAB L100.1400 40-54 % Low HCT 35.9 LAB L100.1500 80-94 fL High MCV 99.4 LAB L100.1600 27.0-32.0 pg High MCH 33.0 LAB L100.1700 32-36 g/gl Normal MCHC 33.1 LAB L100.1810 11.6-14.6 % Normal RDW CV 13.2 LAB L100.1820 35.1-43.9 fl High RDW SD 47.1 LAB L100.1900 150-450 K/mm3 Low PLT 126 LAB L100.2000 6.2-12.0 fl Normal MPV 11.6 Performed By: #### L100.0500 #### [facility] [address] [place], [address] BASIC METABOLIC Collected: 05/07/2018 Status: F Source: [place] PROFILE (BMP) 5:08 AM [facility] REPOSITORY TYPE CODE TESTS RESULT OUT OF RANGE REFERENCE UNITS LAB L501.0100 74-106 mg/dL Normal GLU 93 Result Comment: Please note revised GLUCOSE reference range effective 2017. LAB L501.1000 7-18 mg/dL High BUN 19 LAB L501.1100 0.70-1.30 mg/dL Normal CREAT,SERUM 1.03 Result Comment: The validity of the calculated GFR AND GFRAA in patients over 70 years has not been determined. Clinical correlation is essential. LAB L501.1110 >60 mL/min Normal EST GFR 76 Result Comment: Non- GFR Calc LAB L501.1115 >60 mL/min Normal EST GFR - AA 92 Result Comment: GFR Calc LAB L501.1255 ml/min Normal Estimated CRCL 69.89 LAB L501.1300 10-20 RATIO Normal BUN/CRE 18.4 LAB L501.2200 8.5-10 mg/dL Normal .1 CA 8.7 LAB L501.5300 136-14 mmol/L Normal 5 NA 143 LAB L501.5600 3.5-5. mmol/L Normal 1 K 3.7 LAB L501.5900 98-107 mmol/L Normal CL 106 LAB L501.6100 21.0-3 mmol/L Normal 2.0 CO2 27.0 LAB L501.6200 5-15 Normal GAP 10 Performed By: #### L500.2500 #### [facility] [address] [facility] [place], [address] ABDOMEN SINGLE VIEW Observed: 05/06/2018 Status: F Source: [place] 1:34 PM [facility] REPOSITORY [facility] Imaging Services [address] [place] [address] Abdomen Single View MR#: [id number] Acct: [id number] Name: JOVANI HOLMAN Rep #: [id number] : 1950 M 67 From: Mayra Brown MD PCP: Herminio Linares MD Status: ADM IN Study: Abdomen Single View Date of Exam: 05/06/18 Exam# [id number] Ordering Dr: Karina Swift FULL STACK ENGINEER-Moris STUDY: X-RAY - ABDOMEN/PELVIS REASON FOR EXAM: Male, 67 years old. IVC filter. TECHNIQUE: Supine abdomen. COMPARISON: None. FINDINGS: Normal visualized lung bases. There is a nonobstructive bowel gas pattern. IVC filter is identified at the L2 level with normal vertical orientation. No evidence of strut fracture. Retained contrast is noted in the kidneys and bladder from prior contrast injection. Normal soft tissue structures. Normal visualized osseous structures. RAD/Abdomen Single View IMPRESSION: IVC filter in situ. No acute process. Electronically Signed: Mayra Brown MD at 19:07 EDT Tel , Service support , CC: SOHA Swift; Herminio Linares MD Tire Service Technician: Signed CTA CHEST W/WO Observed: 05/06/2018 Status: F Source: [place] CONTRAST 9:11 AM [facility] REPOSITORY [facility] Imaging Services [address] [place] [address] CTA Chest W/WO Contrast MR#: [id number] Acct: [id number] Name: JOVANI HOLMAN Rep #: [id number] : 1950 M 67 From: Houston Felix MD PCP: Herminio Linares MD Status: ADM WANG Study: CTA Chest W/WO Contrast Date of Exam: 05/06/18 Exam# [id number] Ordering Dr: Karina Swift STUDY: CTA CHEST REASON FOR EXAM: Male, 67 years old. Pain. Hypotension. RADIATION DOSAGE (If Supplied By Facility): CTDIvol = ( 18.23 ) mGy, DLP = ( 759.03 ) mGycm TECHNIQUE: The examination was performed with the intravenous administration of 100 ml of Isovue 370 contrast material. Post-processing of the angiographic images was performed, with multiplanar reformation and 3D reconstruction. Individualized dose optimization techniques were used for this CT. COMPARISON: Chest x-ray FINDINGS: Normal enhancement of the main pulmonary artery and right and left pulmonary arteries. Filling defects including involving right lower lung pulmonary artery consistent with embolism, series 2 image 94/265. There is atherosclerotic calcification of the aortic arch with tortuosity. There is no demonstrated aortic dissection. There are calcifications of the coronary arteries. There are calcified mediastinal lymph nodes. There are calcified bilateral hilar lymph nodes. Normal visualized trachea and bronchi. The lungs are well expanded. There is no focal infiltrate. There is right lower lung granuloma. There are fibrotic densities . There is postoperative change in the left upper lung. Normal pleura. Normal chest wall structures. There are degenerative changes of thoracic spine. Normal visualized upper abdomen. CT/CTA Chest W/WO Contrast IMPRESSION: Pulmonary embolism on the right. N.B. : The above information has been verbally conveyed by Houston Felix MD to Dr. Berry, Referring Physician, on 05/06/2018 10:47:55 (ET). Electronically Signed: Houston Felix MD at 10:18 EDT , Service support , CC: SOHA Swift; Herminio Linares MD Tire Service Technician: Signed CBC W/DIFF, AUTOMATED Collected: 05/06/2018 Status: F Source: [place] 5:14 AM [facility] REPOSITORY TYPE CODE TESTS RESULT OUT OF RANGE REFERENCE UNITS LAB L100.1000 4.4-11.0 K/mm3 Normal WBC 7.0 LAB L100.1200 4.6-6.2 M/mm3 Low RBC 3.72 LAB L100.1300 13.0-16.5 g/dl Low HGB 12.3 LAB L100.1400 40-54 % Low HCT 36.5 LAB L100.1500 80-94 fL High MCV 98.1 LAB L100.1600 27.0-32.0 pg High MCH 33.1 LAB L100.1700 32-36 g/gl Normal MCHC 33.7 LAB L100.1810 11.6-14.6 % Normal RDW CV 13.2 LAB L100.1820 35.1-43.9 fl High RDW SD 46.4 LAB L100.1900 150-450 K/mm3 Low PLT 104 LAB L100.2000 6.2-12.0 fl Normal MPV 11.9 LAB L100.2100 47-70 % Normal NEUT% 58.9 LAB L100.2200 19-41 % Normal LY% 25.8 LAB L100.2300 0-10 % High MONO% 11.2 LAB L100.2400 0-5 % Normal EO% 3.7 LAB L100.2500 0-1 % Normal BASO% 0.3 LAB L100.2550 0.0-0.9 % Normal IM GRAN % 0.100 Result Comment: IG% - Immature Granulocytes (promyelocytes, myelocytes and metamyelocytes) > 1% indicates that a LEFT SHIFT is Present. LAB L100.2620 2.0-7.7 X10 3/uL Normal Absolute Neut 4.1 LAB L100.2720 0.83-4.51 X10 3/ul Normal Absolute Lymph 1.80 Performed By: #### L100.0100 #### [facility] [address] [place], [place], [address] COMPREHENSIVE METABOLIC Collected: 05/06/2018 Status: F Source: [facility] 5:14 AM [facility] REPOSITORY TYPE CODE TESTS RESULT OUT OF RANGE REFERENCE UNITS LAB L501.0100 74-106 mg/dL Normal GLU 94 Result Comment: Please note revised GLUCOSE reference range effective 2017. LAB L501.1000 7-18 mg/dL High BUN 24 LAB L501.1100 0.70-1.30 mg/dL Normal CREAT,SERUM 1.05 Result Comment: The validity of the calculated GFR AND GFRAA in patients over 70 years has not been determined. Clinical correlation is essential. LAB L501.1110 >60 mL/min Normal EST GFR 74 Result Comment: Non- GFR Calc LAB L501.1115 >60 mL/min Normal EST GFR - AA 90 Result Comment: GFR Calc LAB L501.1255 ml/min Normal Estimated CRCL 68.56 LAB L501.1300 10-20 RATIO High BUN/CRE 22.9 LAB L501.1500 6.4-8. g/dL Normal 2 T PROT 6.4 LAB L501.1800 3.2-5. g/dL Normal 0 ALB 3.6 LAB L501.1950 2.2-4. g/dL Normal 2 GLOB 2.8 LAB L501.2000 0.9-2. RATIO Normal 4 A/G 1.3 LAB L501.2200 8.5-10 mg/dL Normal .1 CA 8.9 LAB L501.4100 15-37 U/L Normal AST 16 LAB L501.4305 45-117 U/L Normal ALK P 92 LAB L501.4405 16-61 U/L Normal ALT 18 LAB L501.4600 0.20-1 mg/dL Normal .00 T BILI 1.00 LAB L501.5300 136-14 mmol/L Normal 5 NA 140 LAB L501.5600 3.5-5. mmol/L Low 1 K 3.4 LAB L501.5900 98-107 mmol/L Normal CL 105 LAB L501.6100 21.0-3 mmol/L Normal 2.0 CO2 27.0 LAB L501.6200 5-15 Normal GAP 8 Performed By: #### L500.4050 #### [facility] [address] [facility] [place], [address] PSA,TOTAL- DIAGNOSTIC Collected: 05/06/2018 Status: F Source: [place] 5:14 AM [facility] REPOSITORY TYPE CODE TESTS RESULT OUT OF RANGE REFERENCE UNITS LAB L501.9940 0.0-4.0 ng/mL PSA, Normal DIAGNOSTIC 1.11 Result Comment: This test was performed using the TPSA assay method for the [employer] chemistry system. Values obtained with different assay methods cannot be used interchangably. When changing PSA assays in the course of monitoring a patient, additional sequential testing should be carried out to confirm baseline values. Performed By: #### L501.9940 #### [facility] [address] [place], [address] HISTORY AND PHYSICAL Observed: 05/05/2018 Status: F Source: [place] EXAM 4:46 PM [facility] REPOSITORY [facility] Medical Records Department [address] [facility] [place] [address] History and Physical 05/05/18 1348 MR#: [id number] Acct: [id number] Name: JOVANI HOLMAN Rep #: [id number] : 1950 67 From: Karina Swift FULL STACK ENGINEER-C PCP: Herminio Linares MD Status: ADM WANG Y Location: [place] [address] <Karina Swift - Last Filed: 05/05/18 15:43> Problem List (1) Hypertension Status: Chronic (2) Hyperlipidemia Status: Chronic (3) GERD (gastroesophageal reflux disease) Status: Chronic (4) CAD (coronary artery disease) Status: Chronic (5) COPD (chronic obstructive pulmonary disease) Status: Chronic (6) RAYRAY (obstructive sleep apnea) Status: Chronic (7) BPH (benign prostatic hyperplasia) Status: Chronic History of Present Illness Date of Admission: 05/05/18 Chief Complaint: Dizziness, low blood pressure, lower back pain. The patient is a 67 year old M who presents to the emergency room with multiple complaints including low blood pressure, dizziness, low back pain with radiation bilateral groin, lower extremity swelling. Patient notes last Tuesday he was lifting an object and feels that he injured his back. He has had significant lumbar pain since that time. He sought medical attention at the [place] regarding his back pain and was noted to have a syncopal episode during office visit. He was transferred to [facility] at that time. He states he was discharged with no significant findings. He notes continued lower back pain with radiation to bilateral groin, a lateral lower extremity swelling and low blood pressure with associated dizziness. He denies chest pain, shortness of breath. Denies further syncopal episodes. Denies numbness, tingling. Denies loss of bowel or bladder function. He has a past medical history of hypertension, hyperlipidemia, CAD, COPD, BPH, RAYRAY, GERD. Past Medical History Past Medical History (Chronic Problems): Chronic Problems Hypertension (Chronic) Hyperlipidemia (Chronic) GERD (gastroesophageal reflux disease) (Chronic) CAD (coronary artery disease) (Chronic) COPD (chronic obstructive pulmonary disease) (Chronic) RAYRAY (obstructive sleep apnea) (Chronic) BPH (benign prostatic hyperplasia) (Chronic) Allergies No Known Allergies Allergy (Verified 05/05/18 11:59) Home Medications: Ambulatory Orders Medication Instructions Recorded Aspirin [Aspir-Low] 40.5 mg PO DAILY 06/29/17 Surgical History: - - Left lung partial resection, bilateral cataract extraction, back surgery 3, IVC filter placement. Psychiatric History: No pertinent psych hx Lives: Spouse/ Significant Other Smoking Status: Former smoker Alcohol: None Drugs: None - *Family History Maternal History Items: Stroke, - - Alzheimer's disease Paternal History Items: Diabetes, Stroke Review of Systems Constitutional: Denies: Chills, Fever, Weight Change HEENT: Denies: Head Aches, Sinus Congestion, Sinus Drainage Cardiovascular: Reports: Edema - Bilateral lower extremities, Light Headedness, Syncope. Denies: Chest Pain, Chest Pressure, Palpitations Respiratory: Denies: Cough, Shortness of breath at rest, Sputum production Gastrointestinal: Reports: Constipation. Denies: Abdominal Pain, Diarrhea, Nausea, Vomiting Genitourinary: Reports: Hesitancy. Denies: Dysuria, Incontinence Musculoskeletal: Reports: Back Pain - Lower Skin: Denies: Rash, Wounds Neurological: Denies: Numbness, Tingling, Focal weakness Psychiatric: Denies: Anxiety, Depression, Homicidal Ideations, Suicidal Ideations Hematologic/ Lymphatic: Denies: Easy Bruising, Easy Bleeding VTE Information - Inpt Only VTE Present on Admission: No VTE Mechan Device Prophylaxis: None VTE Pharm Prophylaxis ordered?: Yes - Physical Exam General: Alert, Oriented x3, Cooperative, No apparent distress HEENT: Atraumatic, PERRLA, EOMI, Normocephalic Neck: Supple, No JVD, Negative Carotid Bruits Lungs: Clear to auscultation, Diminished Cardiovascular: Regular rate, Regular Rhythm, Normal S1, Normal S2, No murmurs Abdomen: Bowel Sounds Present, Soft, Non Tender, Non-Distended, Obese Extremities: No clubbing, No cyanosis, Edema - Nonpitting bilateral extremity Skin: No rashes, No breakdown Musculoskeletal: No Tenderness to Palpation of Joints or Extremities Neurological: Cranial nerves II-XII grossly intact, Neuro grossly intact Psych/Mental Status: Normal Affect, Appropriate Vital Signs Temp Pulse Resp BP Pulse Ox 97.7 F L 77 15 156/98 H 97 05/05/18 11:04 05/05/18 13:43 05/05/18 13:43 05/05/18 13:43 05/05/18 13:43 Oxygen Delivery Method Room Air Weight: 209 lb Body Mass Index (BMI) 29.9 Laboratory Tests Past 24 Hrs WBC 6.8 RBC 4.00 L Hgb 13.1 Hct 39.0 L MCV 97.5 H MCH 32.8 H MCHC 33.6 RDW 13.1 RDW Differential 45.9 H Assessment/Plan 1. Recent syncope, recurrent dizziness-recent workup at [facility] included CT of abdomen pelvis due to lower abdominal and back pain which demonstrated evidence of cystitis, no other acute abnormalities. Troponin negative 1. Repeat second troponin. Check UA. Check orthostatic vitals. Check TSH, mg. Obtain echocardiogram. 2. Acute on chronic lumbar back pain-history of back surgery 3. Obtain MRI lumbar spine. PRN pain regimen. 3. CAD-cardiac cath in 2010 with no documented intervention, managed medically. Patient had recent stress test 01/16/2018 which was negative for ischemia which was completed at [facility]. LVEF 66%. Continue aspirin, statin. 4. Hypertension-stable, continue to monitor. Hold HCTZ regimen for now. 5. Hyperlipidemia-continue statin. 6. COPD-no acute exacerbation. 7. GERD-continue PPI regimen. 8. BPH-continue home doxazosin regimen. 9. History of tobacco use-encourage continued cessation. 10. RAYRAY-has not tolerated CPAP in the past. 11. 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 DVT prophylaxis-Lovenox subcu. This patient was seen by SOHA Skelton under the supervision of Dr. Helton. <Gabriel Helton - Last Filed: 05/05/18 16:46> History of Present Illness The patient is a 67 year old M [] Past Medical History Allergies No Known Allergies Allergy (Verified 05/05/18 11:59) - Physical Exam Vital Signs Temp Pulse Resp BP Pulse Ox 97.7 F L 77 15 156/98 H 97 05/05/18 11:04 05/05/18 13:43 05/05/18 13:43 05/05/18 13:43 05/05/18 13:43 Oxygen Delivery Method Room Air Weight: 212 lb Body Mass Index (BMI) 30.4 Laboratory Tests Past 24 Hrs Magnesium 2.1 Troponin I < 0.015 TSH 0.44 Urine Color Yellow Urine Clarity Clear Urine pH 6.5 Assessment/Plan Addendum: Dr. Helton I personally examined the patient and reviewed the chart. I agree with the above. 67 yo M [facility] to [facility] who felt this was vasovagal. He presents today after having weakness and bilateral groin pain and ankle swelling. No SOB or CP General: Alert, Oriented x3, Cooperative, No apparent distress HEENT: Atraumatic, EOMI, Normocephalic Oral: Moist Mucosa Neck: Supple, No JVD Lungs: Clear to auscultation, Normal air movement, No rhonchi, No wheeze, No rales Cardiovascular: Regular rate, Regular Rhythm, Normal S1, Normal S2, No murmurs Abdomen: Soft, Non Tender, Non-Distended, No Hepato-splenomegaly Extremities: 2+ non-pitting edema, Capillary Refill Less than 3 Seconds Skin: No rashes, No breakdown Psych/Mental Status: Normal Affect, Appropriate 1. Weakness/Groin pain/Syncope - Troponinx2 negative - Doppler US of his legs so b/l extensive DVTs - Start Xarelto - Echo in the am - Telemetry and orthostatic VS Code Visit Inpatient E AND M: [id number] Init Hosp L3 05/05/18 1543 <Electronically signed by Karina BRICEC> Date Karina Swift FULL STACK ENGINEER-C 05/05/18 1646<Electronically signed by Gabriel Helton MD> Cosigner Signature: Date (if applicable) Gabriel Helton MD CC: SOHA Swift; Herminio Linares MD; Gabriel Helton MD Signed VENOUS DUPLEX LOWER Observed: 05/05/2018 Status: F Source: [place] EXTREMITY 4:21 PM [facility] REPOSITORY [facility] Cardiovascular Services [address] [place] [address] Venous Duplex US - Fei Extrem 05/05/18 1538 MR#: [id number] Acct: [id number] Name: JOVANI HOLMAN Rep #: [id number] : 1950 67 From: Vikas Sauceda MD Attending Dr: Gabriel Helton MD Status: ADM WANG Ordering Dr: Karina Swift Date: 05/05/18 Location: [facility] Sex: M C Admitted: 05/05/18 Reason For Study: LEG SWELLING RIGHT LEFT GSV is normal. GSV is normal. Acute deep vein thrombosis is noted in the Acute deep vein thrombosis is noted in the right common femoral vein. left common femoral vein. FV is compressible, spontaneous, phasic, Acute deep vein thrombosis is noted in the competent and demonstrates normal left femoral vein. augmentation. Acute deep vein thrombosis is noted in the POP V is compressible, spontaneous, phasic, left popliteal vein. competent and demonstrates normal Acute deep vein thrombosis is noted in the augmentation. left peroneal vein. T/P Trunk is compressible. Acute deep vein thrombosis is noted in the PTV is compressible. left posterior tibial vein. RT PerV is compressible. Procedure Exam performed portable in patient room. A preliminary report was called and/or faxed to PCU charge nurse. Interpretation Summary Acute deep vein thrombosis is noted in the left common femoral vein. Acute deep vein thrombosis is noted in the left femoral vein. Acute deep vein thrombosis is noted in the left popliteal vein. Acute deep vein thrombosis is noted in the left tibio-peroneal trunk. Acute deep vein thrombosis is noted in the left peroneal vein. Acute deep vein thrombosis is noted in the left posterior tibial vein. Acute deep vein thrombosis is noted in the right common femoral vein. The remainder of the right lower extremity deep venous system is patent and compressible. The right femoral vein and popliteal vein are competent. The greater saphenous veins appear bilaterally patent and compressible segmentally. Ordering Physician: SOHA Skelton Referring Physician: Jovani Linares Performed By: Liseth Giraldo RVT 05/05/18 1620 Date Vikas Sauceda MD CC: MANAS-Moris Swift; Herminio Linares MD; Gabriel Helton MD Date Dictated: 05/05/18 1538 Date Transcribed: 05/05/18 162 Tire Service Technician: Signed EMERGENCY DEPARTMENT Observed: 05/05/2018 Status: F Source: [place] SUMMARY 4:10 PM [facility] REPOSITORY [facility] Medical Records Department [address] [place] [address] Emergency Department Summary 05/05/18 1320 MR#: [id number] Acct: [id number] Name: JOVANI HOLMAN Rep #: [id number] : 1950 67 From: Lizzy De La Vega MD PCP: Herminio Linares MD Status: ADM WANG - ER Visit Summary Date of Service: 05/05/18 Chief Complaint: Hypotension, syncope History of Present Illness: The patient is a 67 M who developed back pain after lifting a pump last weekend. He was seen at the [place] and had a syncopal event earlier this week. It was felt to likely be vasovagal syncope secondary to pain. He was sent to [facility] ED for evaluation. Labs were performed and a CT of abdomen and pelvis which were grossly unremarkable. Patient states he is still weak and lightheaded. He still gets episodes with near syncope and his blood pressure is very low. This morning when he is not feeling well blood pressure in the right arm is 90/50 and left arm is 86/48. Patient states his blood pressure is normal in the 140s. Physical Examination: Blood pressure is 111/69, temperature 97.7, heart rate 85, respiratory rate 16, pulse ox 98% on room air. Patient sitting upright in bed. He is in no acute distress. Heart is regular rate and rhythm. Lung sounds are clear. Abdomen is soft nontender. Extremity examination was 2+ left lower extremity edema which patient states is chronic and unchanged from baseline. Neuro exam reveals no focal deficits. Test Results: EKG is sinus 80 with no sign of acute ischemia. CBC and chemistry studies are unremarkable. Troponin negative. Chest x-ray shows borderline cardiomegaly. There is mildly tortuous aorta noted. Mild paratracheal mediastinal fullness is likely secondary to a thyroid goiter. Emergency Department Course and Treatment: Patient received IV fluids here. Blood pressure has maintained stable. I am unsure if the patient may be having arrhythmias where he becomes near syncopal with low blood pressure. I will speak with hospitalist regarding an observation stay overnight to monitor for this. Treatment Plan: [] Disposition: Admit Impression: 1. Recurrent dizziness 2. Recent syncope 3. Hypotension, improved This note was generated with [employer] dictation software. It may contain incorrect words, spelling, and punctuation that were not noted in review of the chart prior to signing ED Disposition - Plan for ED Patient: Chief Complaint: Hypotension Referrals: Herminio Linares MD [Primary Care Provider] - What to do if you have Problems For any increased pain, shortness of breath, bleeding, nausea or vomiting, chest pain, or any unexpected problems, contact your Primary Care Provider. Call [facility] ([phone]) or report to the closest Emergency Room. Call 911 if necessary. 05/05/18 1610 <Electronically signed by Lizzy De La Vega MD> Date Lizzy De La Vega MD Cosigner Signature (If Indicated): Date CC: Herminio Linares MD SPINE LUMBAR Observed: 05/05/2018 Status: F Source: [place] (ROUTINE) 3:42 PM [facility] REPOSITORY [facility] Imaging Services [address] [place] [address] [place] [address] Spine Lumbar (Routine) MR#: [id number] Acct: [id number] Name: JOVANI HOLMAN Rep #: [id number] : 1950 M 67 From: Mayra Brown MD PCP: Herminio Linares MD Status: ADM WANG Study: Spine Lumbar (Routine) Date of Exam: 05/05/18 Exam# [id number] Ordering Dr: Karina Swift FULL STACK ENGINEER-C STUDY: MRI LUMBAR SPINE WITHOUT CONTRAST REASON FOR EXAM: Male, 67 years old. Low back pain, groin pain. TECHNIQUE: Standardized fat and water weighted pulse sequences were obtained in the sagittal and axial planes. COMPARISON: None FINDINGS: T12-L1: Normal endplates. Disc dehydration. There is a mild, noncompressive spondylotic bar. Normal bilateral facet joints. Normal central canal and bilateral lateral recesses. Normal bilateral intervertebral neural foramina. Normal lumbar lordosis. There is no substantial scoliosis. Normal conus medullaris that terminates at the L1 level. L1-2: Normal endplates. Disc dehydration and mild disc space narrowing. There is a mild, noncompressive spondylotic bar. Normal bilateral facet joints. Normal central canal and bilateral lateral recesses. Normal bilateral intervertebral neural foramina. L2-3: Normal endplates. Moderate disc space narrowing. There is a mild, noncompressive spondylotic bar. Normal bilateral facet joints. Normal central canal and bilateral lateral recesses. Normal bilateral intervertebral neural foramina. L3-4: Normal endplates. Normal disc height, hydration and morphology. Normal bilateral facet joints. Normal central canal and bilateral lateral recesses. Normal bilateral intervertebral neural foramina. L4-5: Normal endplates. Disc dehydration and mild disc space narrowing. There is a small right paracentral disc extrusion causing mild effacement of the thecal sac. Normal bilateral facet joints. Normal central canal and bilateral lateral recesses. Normal bilateral intervertebral neural foramina. L5-S1: Normal endplates. There is marked disc space narrowing. Patient is status post left hemilaminectomy. There is a mild spondylotic bar. Soft tissue signal is noted in the spinal canal with partial encasement of the thecal sac and traversing left S1 nerve root. This is not well evaluated without contrast. There is moderate to severe foraminal stenosis due to spurring. Normal visualized sacral ala. Normal visualized paraspinous soft tissue structures. MRI/Spine Lumbar (Routine) IMPRESSION: 1. Small L4-5 disc extrusion. 2. Status post left laminectomy at L5-S1. Residual scar is not evaluated without contrast. 3. L5-S1 foraminal stenosis. Electronically Signed: Mayra Brown MD at 18:42 EDT Tel , Service support , CC: SOHA Swift; Herminio Linares MD Tire Service Technician: Signed TROPONIN-I Collected: 05/05/2018 Status: F Source: [place] 3:35 PM [facility] REPOSITORY Order Comment: Comments: add on admission lab Comments: add on admission lab Comments: Now X1 TYPE CODE TESTS RESULT OUT OF RANGE REFERENCE UNITS LAB L501.4010 <0.045 ng/mL Normal < 0.015 TROPONIN-I Result Comment: TROPONIN-I EXPECTED VALUES <0.045 Negative 0.045 - 0.590 Consistent with Cardiac Damage > OR = 0.600 Critical Value Not every elevated troponin is indicative of MO. These values should be used with clinical judgement in examining the patient's clinical picture for diagnosis. To establish a diagnosis of MO versus myocardial injury, there must be a demonstrated rise and/or fall in the troponin values, in addition to ischemic symptoms, EKG changes, new regional wall motion abnormality, and/or angiographical evidence. PLEASE NOTE: REFERENCE RANGES EDITED 18 Performed By: #### L501.4010, L501.5200, L501.9520 #### [facility] [address] [place], [address] MAGNESIUM Collected: 05/05/2018 Status: F Source: [place] 3:35 PM [facility] REPOSITORY Order Comment: Comments: add on admission lab Comments: add on admission lab Comments: Now X1 TYPE CODE TESTS RESULT OUT OF RANGE REFERENCE UNITS LAB L501.5200 1.6-2.6 mg/dL Normal MG 2.1 Performed By: #### L501.4010, L501.5200, L501.9520 #### [facility] [address] [facility] [place], [address] THYROID STIM HORMONE Collected: 05/05/2018 Status: F Source: [place] (TSH) 3:35 PM [facility] REPOSITORY Order Comment: Comments: add on admission lab Comments: add on admission lab Comments: Now X1 TYPE CODE TESTS RESULT OUT OF RANGE REFERENCE UNITS LAB L501.9520 0.358-3.74 uIU/mL Normal TSH 0.44 Performed By: #### L501.4010, L501.5200, L501.9520 #### [facility] [address] [place], [place], [address] URINALYSIS, COMPLETE Collected: 05/05/2018 Status: F Source: [place] 3:25 PM [facility] REPOSITORY Order Comment: Has pt arrived? Y How was Urine Obtained? CLEAN CATCH TYPE CODE TESTS RESULT OUT OF RANGE REFERENCE UNITS LAB L400.3000 Yellow COLOR Normal Yellow LAB L400.3050 Clear Normal CLARITY Clear LAB L400.3200 Normal mg/dl Normal GLUCOSE, UR Normal LAB L400.3300 Negative mg/dL Normal BILIRUBIN URINE Negative LAB L400.3400 Negative mg/dl Normal KETONE UR Negative LAB L400.3465 1.002-1.030 Normal SP.GR. DIPSTX 1.010 LAB L400.3550 5.0 - 8.0 pH UR Normal 6.5 LAB L400.3600 Negative mg/dl PROT Normal DIPSTX Negative LAB L400.3700 Normal mg/dl Normal UROBILI Normal LAB L400.3750 Negative Normal NITRITE UR Negative LAB L400.3780 Negative /ul Normal OCCULT BLOOD-UR Negative LAB L400.3800 Negative /ul LEUK Normal ESTERASE Negative LAB L400.4050 0-5 /hpf WBC 0 Normal SEEN LAB L400.4100 0-5 /hpf 0 Normal RBC-UA SEEN LAB L400.4150 0-5 /hpf SQUAM 0 Normal EPI SEEN LAB L400.4300 None Seen /hpf 0 Normal BACTERIA SEEN LAB L400.4350 <or=2+ /hpf 0 Normal MUCUS, URINE SEEN Performed By: #### L400.0001 #### [facility] [address] [place], [address] Observed: 05/05/2018 Status: F Source: BAO CULTURE, URINE 3:25 PM [facility] REPOSITORY Send Results To: PCU Has pt arrived? Y Urine Culture Culture exhibits no growth. Performed By: #### M100.0650 #### [facility] [address] [place], [address] CBC W/DIFF, AUTOMATED Collected: 05/05/2018 Status: F Source: BAO 11:57 AM [facility] REPOSITORY TYPE CODE TESTS RESULT OUT OF RANGE REFERENCE UNITS LAB L100.1000 4.4-11.0 K/mm3 Normal WBC 6.8 LAB L100.1200 4.6-6.2 M/mm3 Low RBC 4.00 LAB L100.1300 13.0-16.5 g/dl Normal HGB 13.1 LAB L100.1400 40-54 % Low HCT 39.0 LAB L100.1500 80-94 fL High MCV 97.5 LAB L100.1600 27.0-32.0 pg High MCH 32.8 LAB L100.1700 32-36 g/gl Normal MCHC 33.6 LAB L100.1810 11.6-14.6 % Normal RDW CV 13.1 LAB L100.1820 35.1-43.9 fl High RDW SD 45.9 LAB L100.1900 150-450 K/mm3 Low PLT 104 LAB L100.2000 6.2-12.0 fl High MPV 12.2 LAB L100.2100 47-70 % Normal NEUT% 67.4 LAB L100.2200 19-41 % Low LY% 17.8 LAB L100.2300 0-10 % High MONO% 12.0 LAB L100.2400 0-5 % Normal EO% 2.4 LAB L100.2500 0-1 % Normal BASO% 0.3 LAB L100.2550 0.0-0.9 % Normal IM GRAN % 0.100 Result Comment: IG% - Immature Granulocytes (promyelocytes, myelocytes and metamyelocytes) > 1% indicates that a LEFT SHIFT is Present. LAB L100.2620 2.0-7.7 X10 3/uL Normal Absolute Neut 4.6 LAB L100.2720 0.83-4.51 X10 3/ul Normal Absolute Lymph 1.20 Performed By: #### L100.0100 #### [facility] [address] [place], [place], [address] BASIC METABOLIC Collected: 05/05/2018 Status: F Source: [place] PROFILE (BMP) 11:57 AM [facility] REPOSITORY TYPE CODE TESTS RESULT OUT OF RANGE REFERENCE UNITS LAB L501.0100 74-106 mg/dL High GLU 109 Result Comment: Fasting Glucose result from 100 to 125 mg/dL suggests IMPAIRED HOMEOSTASIS per A.D.A. criteria. Please note revised GLUCOSE reference range effective 2017. LAB L501.1000 7-18 mg/dL High BUN 25 LAB L501.1100 0.70-1.30 mg/dL Normal CREAT,SERUM 1.18 Result Comment: The validity of the calculated GFR AND GFRAA in patients over 70 years has not been determined. Clinical correlation is essential. LAB L501.1110 >60 mL/min Normal EST GFR 65 Result Comment: Non- GFR Calc LAB L501.1115 >60 mL/min Normal EST GFR - AA 79 Result Comment: GFR Calc LAB L501.1255 ml/min Normal Estimated CRCL 61.01 LAB L501.1300 10-20 RATIO High BUN/CRE 21.2 LAB L501.2200 8.5-10 mg/dL Normal .1 CA 9.4 LAB L501.5300 136-14 mmol/L Normal 5 NA 139 LAB L501.5600 3.5-5. mmol/L Normal 1 K 3.5 LAB L501.5900 98-107 mmol/L Normal CL 100 LAB L501.6100 21.0-3 mmol/L Normal 2.0 CO2 30.0 LAB L501.6200 5-15 Normal GAP 9 Performed By: #### L500.2500, L501.4010 #### [facility] [address] [place], [place], [address] TROPONIN-I Collected: 05/05/2018 Status: F Source: [place] 11:57 AM [facility] REPOSITORY TYPE CODE TESTS RESULT OUT OF RANGE REFERENCE UNITS LAB L501.4010 <0.045 ng/mL Normal < 0.015 TROPONIN-I Result Comment: TROPONIN-I EXPECTED VALUES <0.045 Negative 0.045 - 0.590 Consistent with Cardiac Damage > OR = 0.600 Critical Value Not every elevated troponin is indicative of MO. These values should be used with clinical judgement in examining the patient's clinical picture for diagnosis. To establish a diagnosis of MO versus myocardial injury, there must be a demonstrated rise and/or fall in the troponin values, in addition to ischemic symptoms, EKG changes, new regional wall motion abnormality, and/or angiographical evidence. PLEASE NOTE: REFERENCE RANGES EDITED 18 Performed By: #### L500.2500, L501.4010 #### [facility] [address] [place], [address] CHEST 1 VIEW Observed: 05/05/2018 Status: F Source: [place] (PORTABLE) 11:41 AM [facility] REPOSITORY [facility] Imaging Services [address] [place] [address] Chest 1 View (Portable) MR#: [id number] Acct: [id number] Name: JOVANI HOLMAN Rep #: [id number] : 1950 M 67 From: Leonel Shukla MD PCP: Herminio Linares MD Status: [facility] ER Study: Chest 1 View (Portable) Date of Exam: 05/05/18 Exam# [id number] Ordering Dr: Lizzy De La Vega MD STUDY: X-RAY CHEST REASON FOR EXAM: Male, 67 years old. Low blood pressure. TECHNIQUE: Single AP portable upright view of the chest. COMPARISON: None. FINDINGS: The lungs are moderately expanded. There is stranding linear densities of scarring or subsegmental atelectasis in the right lung base and, to a lesser degree, in the left suprahilar region. Calcified granuloma also projects in the posterior right lower lobe. There is mild elevation/lobulation of the right diaphragm. There is no demonstrated pleural abnormality. There is borderline to mild cardiac enlargement. Right peritracheal soft tissue fullness near the thoracic inlet could reflect ectatic, tortuous brachycephalic vessels versus a thyroid goiter versus adenopathy. Normal visualized pulmonary arteries. There is atherosclerotic calcification of the aortic arch with tortuosity of the descending thoracic segment. There are mild multilevel degenerative changes of the visualized thoracic spine. Normal visualized ribs, clavicles, and shoulders. There is no demonstrated abnormality of the visualized soft tissue structures of the upper abdomen. RAD/Chest 1 View (Portable) IMPRESSION: 1. Borderline to mild cardiac enlargement with mildly tortuous, calcified thoracic aorta. No CHF. 2. Scarring versus subsegmental atelectasis in the right lung base and left apex. Calcified granuloma also noted in the right lower lobe. 3. Right paratracheal mediastinal fullness, likely a thyroid goiter. Correlation with thyroid ultrasound may be useful. Electronically Signed: Rikki Shukla MD at 12:22 EDT , Service support , CC: Herminio Linares MD; Lizzy De La Vega MD [employer]ire Service Technician: Signed CNOV Observed: 05/05/2018 Status: COMPLETED Source: [place] 10:20 AM [facility] REPOSITORY Office Visit (FAMPWS) JOVANI HOLMAN ([id number]) 1950 M Date Time Provider Department 05/05/18 10:20 AM SHELLY HOLLAND ([facility]NE[facility]) FAMPWS During your visit today, we recorded the following information about you: Pulse Respiration Blood pressure Weight 84/minute 16/minute 106/68 94.8 kg Shelly Holland APRN.[facility] 05/09/2018 8:48 AM Signed 05/09/2018 Patient presents with: ER F/U: [facility] where he [facility] out. He was told the pain caused him to pass out. CT Scan, EKG, A1C checked. SUBJECTIVE: This is a 67 year old that is here today with his for Above Complaints. We have not yet received records requested. He states that when he passed out, he was sweating, shaky, and he was told that his eyes rolled back. He states that he told him that his stomach was not feeling right, so they ordered a CT and was told that it was normal. Urine test per patient was normal. He is very worried today because he does not feel well. He feels lightheaded, using a walker to get around because he is worried he will pass out. This is not typical for him because he is active and the example he provided was that he pulled his back by lifting a heavy water pump. His BP has been low at home 86/48 and 90/50. He has noticed decreased urination, so he has been pushing fluids. He is worried that there is something else other than the pain that caused him to pass out as the providers at [facility] told him. He and his state that they would feel better if he could go back to the hospital. PAST MEDICAL HISTORY Diagnosis Date - Adenomatous colon polyp 10/25/20132008 - Agent orange exposure 02/21/2016 - Bladder neck obstruction 09/19/2008 - BPH (benign prostatic hypertrophy) 09/19/2008 - Chewing tobacco use 01/11/2018 - Chronic obstructive pulmonary disease (COPD) (HCC) - Coronary artery disease due to lipid rich plaque 01/11/2018 Cath around 2010 was told had one vessel at 30% blocked and maker at 50 %. As to be managed medically. - Diverticulosis of colon (without mention of hemorrhage) - Essential hypertension 09/13/2010 -continue home regimen of atenolol 50, amlodipine 5, HCTZ 25 - Ex-smoker 01/11/2018 Started around age 8 up to 2 PPD and quit 2009 - GERD (gastroesophageal reflux disease) 11/23/2013 - Hemorrhage of rectum and anus 10/23/2008 - Idiopathic urticaria 11/10/2006 - Leg edema 09/16/2010 - Lumbago 09/19/2008 - Lupus erythematosus ? if this was a true Dx. - Mixed hyperlipidemia 09/14/2010 Chol 182 Tri 98 HDL 35 LDL 127 - Mixed simple and mucopurulent chronic bronchitis (HCC) 01/22/2016 - RAYRAY (obstructive sleep apnea) AHI 5.1 per 4% AND OS 10/15/2015 Was not able to tolerate - Other pulmonary embolism and infarction 09/13/2010 -pt had PE and DVT in 2005 after back surgery -an IVC filter was placed then and is still in place Was on coumadin for a time and then quit taking it on his own - Postinflammatory pulmonary fibrosis (HCC) 09/16/2010 - Presence of IVC filter 12/29/2014 - PVC's (premature ventricular contractions) 01/11/2018 - SOLAR LENGINES 06/08/2006 - Thoracic aortic aneurysm without rupture (HCC) 02/22/2018 See who patient sees [facility] [place] next visit (07/14/2018) ALLERGIES Bactrim [Sulfamethoxazole-Trimethoprim]; Levaquin [Levofloxacin] MEDICATIONS Current Outpatient Prescriptions: aspirin, enteric coated (ASPIRIN, ENTERIC COATED) 81 mg EC tablet Take 81 mg by mouth once daily. doxazosin (CARDURA) 8 mg tablet Take 1 tablet by mouth every evening. hydrochlorothiazide (HYDRODIURIL, ESIDRIX) 25 mg tablet Take 1 tablet by mouth once daily. omeprazole (PRILOSEC) 20 mg capsule Take 1 capsule by mouth daily before breakfast. 1/2 hr before meal. atorvastatin (LIPITOR) 10 mg tablet Take 2 tablets by mouth once daily. glucosamine/chondr blake A sod (OSTEO BI-FLEX ORAL) Take by mouth. No current facility-administered medications for this visit. Medications and allergies reviewed by this provider. SOCIAL HISTORY Social History Marital status: Spouse name: Years of education: Number of children: Social History Main Topics Smoking status: Former Smoker Packs/day: 0.50 Years: 40.00 Types: Cigarettes Quit date: 12/04/2010 Smokeless tobacco: Current User Types: Chew Comment: quit smoking and chewing tobacco Alcohol use: No Drug use: No REVIEW OF SYSTEMS seeHPI OBJECTIVE: BP 106/68 (BP Site: Left Arm, BP Position: Sitting, BP Cuff Size: Regular Adult) Pulse 84 Resp 16 Wt 94.8 kg (209 lb) BMI 30.86 kg/m? . Vital signs reviewed by this provider. PHYSICAL EXAMINATION: General appearance: appears nervous, alert, in no acute distress, well-hydrated, well nourished. Skin: Skin color, texture, turgor normal, no suspicious rashes or lesions Head: Normocephalic, no masses, lesions, tenderness or abnormalities Eyes: Anicteric sclera. Pupils are equally round and reactive to light. Extraocular movements are intact. Neck: Supple, no adenopathy; thyroid symmetric, normal size, no bruits Lungs: Lungs clear to auscultation. No wheezing, rhonchi, rales Heart: RRR without murmur, gallop, or rubs. No ectopy Extremities: No deformities, edema, skin discoloration, clubbing or cyanosis. Good capillary refill. , Pulses: 2+ Neuro: Negative findings: speech normal, mental status intact ASSESSMENT/PLAN: 1. Syncope, unspecified syncope type - ICD9: 780.2, ICD10: R55 (primary diagnosis) - [facility] including past history of thoracic aortic aneurysm and other significant history related to current symptoms - pt encouraged to follow up with PCP after hospital stay - requested records from [facility] ER 2. Generalized weakness - ICD9: 780.79, ICD10: R53.1 3. Fatigue, unspecified type - ICD9: 780.79, ICD10: R53.83 4. Generalized pain - ICD9: 780.96, ICD10: R52 5. Lightheaded - ICD9: 780.4, ICD10: R42 6. Hypotension, unspecified hypotension type - ICD9: 458.9, ICD10: I95.9 Shelly Holland APRN.CHAIR CANER Referring Provider: SELF [[id number]] Allergies As of Date: 05/05/2018 Noted Allergy Reaction BACTRIM (SULFAMETHOXAZOLE-TRIMETH*11/18/2008 14 - Other: See Comments Comments: sore throat LEVAQUIN (LEVOFLOXACIN) 06/10/2005 8 - GI Upset Date Reviewed: 05/05/2018 Reviewed by: Ryan Hillman LPN - Fully Assessed Reason for Visit: ER F/U [41] Cmt: [facility] where he passed out. He was told the pain caused him to pass out. CT Scan, EKG, A1C checked. Primary Visit Diagnosis:Syncope, unspecified syncope type [R55] Other Visit Diagnoses:Generalized weakness [R53.1] Fatigue, unspecified type [R53.83] Generalized pain [R52] Lightheaded [R42] Hypotension, unspecified hypotension type [I95.9] Order(s):atorvastatin (LIPITOR) 10 mg tabletTake 2 tablets by mouth once daily.Disp: Rfl: Prescriptions as of 05/05/2018 Sig: ASPIRIN 81 MG TABLET,DELAYED * Take 81 mg by mouth once effie* DOXAZOSIN 8 MG TABLET Take 1 tablet by mouth every * HYDROCHLOROTHIAZIDE 25 MG TAB* Take 1 tablet by mouth once d* OMEPRAZOLE 20 MG CAPSULE,JULIET* Take 1 capsule by mouth daily* ATORVASTATIN 10 MG TABLET Take 2 tablets by mouth once * OSTEO BI-FLEX ORAL Take by mouth. Medication notes this encounter ASPIRIN 81 MG TABLET,DELAYED RELEASE >> Ryan Hillman SECURITY CLERK 05/05/2018 10:23 AM >> RYAN HILLMAN SECURITY CLERK TueMay 05, 2018 10:23 AM Takes 1/2 tablet daily. OSTEO BI-FLEX ORAL >> Ryan Hillman SECURITY CLERK 05/05/2018 10:23 AM >> RYAN HILLMAN SECURITY CLERK TueMay 05, 2018 10:23 AM Not taking Problem List As Of Date 05/05/2018 Noted Resolved Tobacco use disorder [F17.200] 08/05/2016 SOLAR LENGINES [L81.9] INVALID FOR* Priority: D Idiopathic urticaria [L50.1] INVALID FOR* Priority: D Lumbago [M54.5] INVALID FOR* Priority: M BPH (benign prostatic hypertrophy) [N40.0] INVALID FOR* Priority: C Bladder neck obstruction [N32.0] INVALID FOR* Priority: C Diverticulosis of colon (without mention of hem*INVALID FOR* Priority: C More... More... Essential hypertension [I10] INVALID FOR* Priority: A More... Tobacco abuse [Z72.0] INVALID FOR*08/05/2016 Priority: D More... Other pulmonary embolism and infarction [I26.99]INVALID FOR* Priority: B More... Mixed hyperlipidemia [E78.2] INVALID FOR* Priority: A More... More... 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 Screening for colon cancer [Z12.11] INVALID FOR* Mixed simple and mucopurulent chronic bronchiti*INVALID FOR* Priority: A Agent orange exposure [Z77.098] INVALID FOR* Priority: B Coronary artery disease due to lipid rich plaqu*INVALID FOR* Priority: A More... Well adult exam [Z00.00] INVALID FOR* Priority: E More... Chronic obstructive pulmonary disease (COPD) (H* Priority: A Ex-smoker [Z87.891] INVALID FOR* Priority: B More... Chewing tobacco use [Z72.0] INVALID FOR* Priority: B Medicare annual wellness visit, subsequent [Z00*INVALID FOR* Priority: E More... PVC's (premature ventricular contractions) [I49*INVALID FOR* Priority: A Thoracic aortic aneurysm without rupture (HCC) *INVALID FOR* Priority: A More... Prescriptions ordered this encounter Disp Refills Start End ATORVASTATIN 10 MG TABLET 05/05/2018 Class: Med Update Route: ORAL Sig: Take 2 tablets by mouth once daily. Medications Discontinued During This Encounter atorvastatin (LIPITOR) 10 mg tablet 30 t* 11 09/18/2015 05/05/2018 Route: ORAL Sig: Take 1 tablet by mouth once daily. Disc: Reason for discontinue is not on file. Encounter Status:Closed by SHELLY HOLLAND on 05/09/18 ED DOC Observed: 05/03/2018 Status: UNK Source: [place] 2:50 PM [facility] REPOSITORY This is a preliminary report only, as the practitioner review and authentication has not occurred. ED DOC Observed: 05/03/2018 Status: UNK Source: [facility]dock [facility] 2:50 PM [facility] REPOSITORY PHYSICIAN ASSESSMENT RECORDS : FlexChartData Event Time: 05/03/2018 12:30 Status: Signed [facility] Jovani Holman [[id number]] Attending Physician 67 / M / 1950 Chart (V2b) Chart created at 05/03/2018 12:19 by Corky Grande Chart closed at 05/03/2018 14:41 Entry in Emergency Department at 05/03/2018 11:51 Patient Name: Jovani Holman Record Number: [id number] Date: 05/03/2018 12:19 Entered Department at: 05/03/2018 11:51 Patient Seen at: 05/03/2018 11:59 Historian: Patient Chief Complaint:BACK PAIN WHILE AT CLINIC, IN STATES BECAME UNRESPONSIVE AFTER ARRIVAL, PT CURRENTLY SLOW TO RESPOND, ABLE TO ANSWER ALL QUESTIONS APPROPRIATELY. Triage Note reviewed and Initial Vital Signs reviewed. Temperature: 97.5 F (36.4 C). Pulse: 62. Respiratory Rate: 16. Blood-pressure: 137/71. Oxygen Saturation: 96%. History of Present Illness: 67-Year-old male brought in by EMS. On-line med control provided by [facility]. EMS report reviewed by me. Patient has been dealing with low back pain after straining his back 5 days ago trying to lift the pump. Patient states that the pain causes him to get lightheaded and feel like passing out. As she was sitting down in a chair waiting to be seen at the [place], pain got worse again. As the pain worsened, states he [facility] PATIENT NAME: JOVANI HOLMAN [address] [facility] [address] MEDICAL REC #: [id number] [place] [address] EMERGENCY DEPARTMENT CHART EMERGENCY DEPARTMENT PHYSICIAN started to feel warm, got nauseated, got lightheaded. Patient never had any chest pain or palpitations. He never developed any shortness of breath or difficulty breathing. Because of the near fainting spell, EMS was called and the patient was brought in. Patient states he is feeling better now. He is denying any headache. No other blurred vision or double vision. Denies any chest pain or palpitations. No shortness of breath or difficulty breathing. He never had any heaviness or pressure in the chest. He is denying any abdominal pain at this time. States the pain in his back is still in the low back region near the tailbone. He is having no pain going down his legs. He is having no loss of bowel or bladder control. He never had any urinary retention. Denies any numbness, tingling in and around the perineal or rectal region. He denies any urinary symptoms. No frequency, urgency or dysuria. States that he has been eating and drinking normally. No blood in his stools or dark tarry stools. Review of Systems. Constitutional: negative for Chills or Fever Eyes: negative for Eye Pain Ear/Nose/Throat: negative for Earache, Congestion or Sore Throat Cardio-Vascular: positive for Syncope, as noted in the HPI Skin: negative for Rash Respiratory: negative for Cough or Dyspnea GI: negative for Abd. Pain, Diarrhea, Nausea or Vomiting : negative for Dysuria, Frequency or Urgency Musculo-Skeletal: positive for Back Pain, negative for Neck Pain Neurological: negative for Headache, Numbness or Weakness Psychological: negative for Stress Hem/Endo: negative for Bleeding, Polyuria or Bruising Immunology: negative for Joint Pain Past History, Medications, Allergies, Social History and Family History reviewed in nurses note. Past Medical History: History of: CAD, GERD, High Cholesterol, Hypertension and Pulm Embolus. BPH Chronic back pain Past Surgical/Procedure History: [facility] PATIENT NAME: JOVANI HOLMAN [facility] [address] MEDICAL REC #: [id number] [place] [address] EMERGENCY DEPARTMENT CHART EMERGENCY DEPARTMENT PHYSICIAN Back surgery Left lobectomy IVC filter Medications: Reviewed RN Note. ATORVASTATIN 20MG PO, DOXAZOSIN MESYLATE 8MG TABLET - PO, HCTZ 25MG PO, OMEPRAZOLE 20MG DELAYED-RELEASE CAPSULE - PO, CARBOXYMETHLYCELLULOSE NA 0.5% OPH ALYSE, ASPIRIN 81MG PO, VERIFIED WITH MED LIST 05/03/18 Allergies: Reviewed RN Note No Known Allergies Social History: Reviewed RN Note. Family History: Reviewed RN Note Physical Examination: General: Alert and Well Developed; Well-developed, well-nourished male. He is awake and alert to person, place and time. Vital signs and I interpret are stable. Patient is nontoxic-appearing. HEENT: Normal ENT inspection. Head: Atraumatic. Eyes: Lids Normal; PERRL; EOMI. Ear: Normal auricle, Normal external aud. canal, Normal Tympanic Membranes. Nose: Normal inspection, Normal mucose. Oropharynx / Throat: Normal Pharynx, Moist mucous membranes. Neck: No Lymphadenopathy and Supple Respiratory: No Resp Distress and Normal Breath Sounds Cardio-Vascular: No murmur and RRR Abdomen: Normal Bowel Sounds, No Organomegaly and Non-tender; negative for Rebound, Guarding, Mass or Pulsatile; no peritoneal signs noted Back: No CVA tenderness and Non-tender Extremity: No edema and Normal Equal pulses; pulses equal upper/ lower extremities. equal left and right sides. Full range of motion of all joints. No deformities were noted. No cyanosis, clubbing or edema noted. Neurological: Alert, Oriented X3, Normal Sensation, No Gross Weakness, Speech Normal, Normal DTRs and 5/5 UE/LE Strength Skin: No rash, [facility] PATIENT NAME: JOVANI HOLMAN [address] [facility] [address] MEDICAL REC #: [id number] [place] [address] EMERGENCY DEPARTMENT CHART EMERGENCY DEPARTMENT PHYSICIAN No Petechiae, Warm and Dry Psychological: Mood/Affect Normal and Normal Memory/Judgment BMP, information as of 05/03/2018, 12:23 pm 143 --------+--------+--------andlt; 94 Anion Gap = 10 3.0* BUN/CREA: 20; CALCIUM TOTAL: 7.4 Mg/Dl CBC W/DIFF, information as of 05/03/2018, 12:23 pm 96.7 / 12.7* / 7.8 andgt;------andlt; 98* / 37.8* / N:71.0 BASO ABS: 0.00 K/Cu Mm; BASOPHIL %: 0.4 %; EOS ABS: 0.10 K/Cu Mm; EOSINOPHIL %: 0.9 %; IMMATR GRAN ABS: 0.00 K/Cu Mm; IMMATURE GRAN %: 0.3 %; LYMPH %: 18.4 %; LYMPH ABS: 1.40 K/Cu Mm; MCHC: 33.6 Gm/Dl; MONO ABS: 0.70 K/Cu Mm; MONOCYTE %: 9.0 %; MPV: 12.4; NEUTROPHIL ABS: 5.60 K/Cu Mm; NRBC: 0.0 %; OVALOCYTES: 1+; PLT EST: Mod Decreased; PLT MORPH: Large Forms Noted; POIK: 1+; RBC: 3.91 M/Cu Mm; RDW: 13.3 UA COMPLETE, information as of 05/03/2018, 1:48 pm + +---------+---------+---------+---------+-------- + + +---------+---------+---------+---------+-------- + + +---------+---------+---------+---------+-------- + + +---------+---------+---------+---------+-------- + + +---------+---------+---------+---------+-------- [facility] PATIENT NAME: JOVANI HOLMAN [facility] [address] MEDICAL REC #: [id number] [place] [address] EMERGENCY DEPARTMENT CHART EMERGENCY DEPARTMENT PHYSICIAN + HYALINE CAST: 73 /Lpf; MUCUS: 4+; SQUAMOUS EPIS: 0 Epi/Hpf; UA BACTERIA: Trace /Hpf TROPONIN I POC, information as of 05/03/2018, 12:08 pm POC Trop-I: 0.00 Cardiogram: Interpreted by me. Interpretation: Sinus bradycardia without acute ST elevation or depression. Nonspecific T-wave changes noted. No prolongation of the MA interval or QRS complex seen. No old EKGs available for comparison. Comparison: No old Cardiogram available for comparison Imaging Study Obtained: CT ABD/PEL W IV CONTRAST ONLY Imaging Study Obtained: CT ABD/PEL W IV CONTRAST ONLY, Status:Signed Report Available CT ABD/PEL W IV CONTRAST ONLY Ordering Physician: Corky Grande MD 05/03/2018 12:21 PM COMPUTED TOMOGRAPHY ABDOMEN AND PELVIS Clinical Statement: Back and lower abdominal pain TECHNIQUE: 3.75 mm thick axial images of the abdomen and pelvis were obtained following the administration of 100 cc of Isovue-300 intravenous contrast. There were no prior studies available for comparison. FINDINGS: The lung bases show no acute abnormalities. There is a [facility] PATIENT NAME: JOVANI HOLMAN Dr. Ghosh MEDICAL REC #: [id number] [place] [address] EMERGENCY DEPARTMENT CHART EMERGENCY DEPARTMENT PHYSICIAN calcified granuloma in the right lower lobe. The liver, spleen and pancreas show no acute findings. The gallbladder is unremarkable. No ductal dilatation is shown. The adrenal glands are unremarkable. The kidneys enhance normally with no hydronephrosis. An inferior vena cava filter is present. No upper abdominal fluid collections are seen. There is no evidence of bowel obstruction. There is diverticulosis with no evidence of acute diverticulitis. There is no evidence of acute appendicitis. There is diffuse wall thickening of the urinary bladder. There is surrounding perivesical soft tissue stranding. There is mild presacral edema. The findings are compatible with cystitis. The prostate gland is prominent measuring 4.8 cm in diameter. There are prostate calcifications. The aorta is atherosclerotic with no acute findings. There are degenerative changes in the spine. No acute osseous abnormalities are present. No lymphadenopathy is shown. There are small scattered retroperitoneal [facility] PATIENT NAME: JOVANI HOLMAN Celeste Ghosh MEDICAL REC #: [id number] [place] [id number] EMERGENCY DEPARTMENT CHART EMERGENCY DEPARTMENT PHYSICIAN lymph nodes. IMPRESSION: Diffuse prominence of the wall the urinary bladder with perivesical and presacral soft tissue stranding compatible with cystitis. ---- Electronic Signature on File ---- Signed By: Lucho Armas MD FACR [email or web address] Dictated: 05/03/2018 1:31 PM Signed: 05/03/2018 1:36 PM Reported By: LUCHO ARMAS M.D. Radiology: Interpreted by Radiologist. Medical Decision Making On workup, urinalysis was negative for leukocytes, nitrites, blood. Sodium at 143. Potassium 3.0. Chloride was 111 with a CO2 21. BUN of 20 with a creatinine of 1 and a glucose of 94. White count was 7.8 with an Handamp;H of 12.7 and 37.8. Platelet count 98. Troponin was at 0. CT abdomen obtained read by radiologist showed some diffuse prominence of the wall of the bladder with soft tissue stranding compatible with cystitis. Even though the x-ray showed findings of cystitis, his urinalysis was negative and clinically he was having no symptoms of a UTI. I do not feel he required any antibiotics at this time. Patient was brought in after syncopal episode. States that he states that this happened after he was [facility] PATIENT NAME: JOVANI HOLMAN [facility] Dr. Ghosh MEDICAL REC #: [id number] [place] [id number] EMERGENCY DEPARTMENT CHART EMERGENCY DEPARTMENT PHYSICIAN experiencing severe pain in his back. Again he strained his back over the weekend. I feel he had a vasovagal episode secondary to pain. He was medicated here discomfort has improved. I do not feel that he had any type of dysrhythmic event and I do not feel he requires admission in the hospital. By EGSYS and [place] syncope rules, he was at low risk for cardiac dysrhythmia. Patient will be placed on a anti-inflammatory as well as a muscle relaxant. Referred back to the [place] clinic for follow-up. Patient discharged home stable condition Additional Information: Discussed Results, Diagnosis and Follow-Up with Patient. Clinical Impression: 1. Vasovagal syncope 2. Low back strain Disposition: Discharged *Home. Condition: Stable MSE completed. I was the primary ED attending.. : Discharge Report Event Time: 05/03/2018 14:42 ===DISCHARGE REPORT=== : NestorChartData Event Time: 05/03/2018 12:30 : Discharge Report Event Time: 05/03/2018 14:42 Status: Draft Reasons to Return to the ER: You must return to the ER for any new, worsening or changing symptoms, or if you feel more ill or sick in any way. This is the most important thing to remember. Follow-up: [facility] PATIENT NAME: JOVANI HOLMAN [facility] Dr. Ghosh MEDICAL REC #: [id number] [place] [address] EMERGENCY DEPARTMENT CHART EMERGENCY DEPARTMENT PHYSICIAN The care you received in the ER was given on an emergency basis only, and it is often not possible to completely treat or diagnose a problem in a single ER visit. You must see your follow-up doctor for a recheck within a week unless you receive instructions with a different timeframe for follow-up. Please follow all your discharge instructions. Medications: Unless the ER doctor tells you differently, you should take all your regular medications and any new medications prescribed today. Because it is not possible for the ER doctor to review all of your medication side effects or interactions, you must review possible side effects and interactions with your pharmacist when you get your prescriptions filled. EKG and Radiology Results: A product marketer or radiologist will review any EKG or radiology results provided by the ER doctor. We will contact you if the results in the final EKG or radiology reports require a change in treatment. Culture Results: Cultures may have been ordered during your ER visit. We will contact you if the culture results require a change in treatment. Referrals: Most referrals to specialists come from the on-call list You should make your regular doctor aware of any referrals before you schedule the appointment so that they are aware and can make suggestions DIAGNOSIS: Vasovagal syncope, Low back strain INSTRUCTIONS: Use medication as needed for back discomfort. Continue any [facility] PATIENT NAME: JOVANI HOLMAN [facility] Dr. Ghosh MEDICAL REC #: [id number] [place] [address] EMERGENCY DEPARTMENT CHART EMERGENCY DEPARTMENT PHYSICIAN other present medication as directed. Follow-up with the [place] clinic. Your neck or back pain may have several possible causes. A contusion is the medical name for a bruise, which occurs when tissues under the skin are injured and begin to bleed. A fracture occurs when a bone breaks. A sprain happens when ligaments, the tissues that hold bones together, are stretched or torn. Spasm is the tightness and stiffness that occurs from muscle injury. A strain occurs when your neck or back is injured from excessive or improper use. Arthritis refers to pain that affects the joints as they wear down. The tissue that sits between and cushions the bones in your neck and back, called discs, can also break down or even get pushed out of position. This is called a herniated disc. When this occurs the herniated disc can also pinch the nerves in your neck or back. These pinched nerves can cause pain that runs down the legs (called sciatica) or the arms. It is not unusual to have more than one of these problems at the same time. The immediate treatment for most of these problems is the same:1) Rest your neck or back as much as possible for 24-48 hours but complete bed rest is not recommended; you should also avoid prolonged sitting or standing2) Apply ice packs or cool compresses for 15-20 minutes, 4-6 times per day, for 24-48 hours; a muscle spasm is different and should be treated with heat; heat may also be used on a strain, especially after 24-48 hours of treatment with ice packs or cool compresses3) Use any crutches, walkers, splints, wraps or slings that were given to you; while using this medical equipment you cannot drive, operate machinery or do any activity in which you might hurt yourself4) To prevent stiffness, your neck or back should be slowly stretched and moved through its full range of motion at least 2-3 times per day5) Normal activity should be gradually increased as tolerated, taking care not to injure the area6) Minor pain may also be treated with [id number]-[id number] ibuprofen (if you are not ) or acetaminophen; you should avoid aspirin unless you are taking this medication for another reason7) You must use all of your regular medications plus all the [facility] PATIENT NAME: JOVANI HOLMAN [facility] Dr. Ghosh MEDICAL REC #: [id number] [place] [address] EMERGENCY DEPARTMENT CHART EMERGENCY DEPARTMENT PHYSICIAN medications that were given to you today If you had an x-ray, please remember that they are not 100% accurate in finding broken bones and many broken bones are not seen on the first set of x-rays. UNLESS THE ER DOCTOR GIVES YOU OTHER INSTRUCTIONS, YOU MUST SEE YOUR FOLLOW-UP DOCTOR FOR RECHECK WITHIN 2 TO 3 DAYS YOU MUST RETURN TO THE ER RIGHT AWAY FOR ANY OF THE FOLLOWING:Numbness in the genital or rectal areaNew or increasing pain or swellingFevers or chillsSigns of infection (increased redness, warmth, pain, swelling or drainage)New or increasing numbness or weakness in arms or legsLoss of bowel or bladder controlSigns of poor blood flow (cool temperature or pale color in an arm or leg) REFERRAL IN Clinic (Medicine/Mental Health/Podiatry/Ophthalmology) , Address: [address] [place] [address] [place] [address], , fax: Please call the above number to schedule a follow-up appointment. 2-3 days MEDICATIONS We have given you these prescriptions that you must fill and start taking: Anaprox DS 550 mg Tab, count:14, Dose = 1, count:14, 7 days, count:14,2 times a day, count:14 Zanaflex 4 mg tablet, count:21, Dose =1 tab, count:21,7 days, count:21,every 8 hrs, count:21 COMMENTS: Patient Satisfaction: Within the first few days after your visit, you will [facility] PATIENT NAME: JOVANI HOLMAN [address] [facility] [address] Ghosh MEDICAL REC #: [id number] [place] [address] EMERGENCY DEPARTMENT CHART EMERGENCY DEPARTMENT PHYSICIAN receive an email and/or phone call regarding your visit. We value your feedback, and would appreciate it if you would take the time to complete this short survey. If you receive a call, it will be between 6p and 8p. My signature below indicates that I have received and understand the oral instructions regarding my medical problem. I also acknowledge receipt of this written instruction sheet including a list of major tests and procedures ordered during my visit. I will arrange for follow-up care as indicated by these instructions and referrals. This signed original will be kept in my medical record. Your signature below indicates consent for Case Management to contact [facility] in an effort to meet your ongoing healthcare needs. This will allow forcontinuity of care once you leave the Emergency Department. This exchange of informationwill include, but not be limited to, disclosure of your patient information and possible release of records. [employer]GRAPH[employer] Patient: JOVANI HOLMAN Sex: M : 1950 Age: 67 yr Account No: [id number] Registration Date: 11:49 05/03/2018 Address: [address] [facility] [facility] Address: [place] [address] REGISTRATION ED Number: [id number] Marital Status: M Financial Class: MPPS TRIAGE [facility] PATIENT NAME: JOVANI HOLMAN [address] [facility] [address] Ghosh MEDICAL REC #: [id number] [place] [address] EMERGENCY DEPARTMENT CHART EMERGENCY DEPARTMENT PHYSICIAN Priority: 3 - Urgent Complaint: Back Pain, Non Traumatic Stated Complaint: BACK PAIN WHILE AT CLINIC, IN STATES BECAME UNRESPONSIVE AFTER ARRIVAL, PT CURRENTLY SLOW TO RESPOND, ABLE TO ANSWER ALL QUESTIONS APPROPRIATELY. Arrival Date: 05/03/2018 11:51 Triage Date: 05/03/2018 11:53 Mode of Arrival: Ambulance Transfer From: *[facility] WC: N Language: Icelandic Transport: [facility] BED D44 In: 05/03/2018 11:53:39 05/03/2018 11:53:39 KAMINI D44 (Removed From) Out: 05/03/2018 14:50:47 05/03/2018 14:50:47 KCP PROVIDERS Emergency Medical Service Provider Contact: 05/03/2018 11:51:47 EMS End: MD Corky Grande Provider Contact: 05/03/2018 11:59:04 REJI End: SHIMA ALVAREZ Provider Contact: 05/03/2018 12:08:18 KCP End: TRIAGE HISTORY ALLERGIES Allergic To: No Known Allergies 05/03/2018 11:59 NAY CURRENT MEDS [facility] PATIENT NAME: RIVERJOVANI E [address] [facility] [address] Ghosh MEDICAL REC #: [id number] [place] [address] EMERGENCY DEPARTMENT CHART EMERGENCY DEPARTMENT PHYSICIAN Name: ATORVASTATIN 20MG PO 05/03/2018 11:59 NAY Freq: 0.5 TAB PO AT BEDTIME Name: DOXAZOSIN MESYLATE 8MG TABLET - PO 05/03/2018 11:59 NAY Freq: DAILY Name: HCTZ 25MG PO 05/03/2018 11:59 NAY Freq: DAILY Name: OMEPRAZOLE 20MG DELAYED-RELEASE CAPSULE - PO 05/03/2018 11:59 NAY Freq: DAILY Name: CARBOXYMETHLYCELLULOSE NA 0.5% OPH ALYSE 05/03/2018 11:59 NAY Freq: ONE DROP EACH EYE FOUR TIMES DAILY Name: ASPIRIN 81MG PO 05/03/2018 11:59 NAY Freq: DAILY Name: VERIFIED WITH MED LIST 05/03/18 05/03/2018 11:59 NAY ILLNESS Illness: Chronic Pains BACK 05/03/2018 11:59 NAY Illness: Angina/CAD 05/03/2018 11:59 NAY Illness: Hypertension 05/03/2018 11:59 NAY Illness: GERD 05/03/2018 11:59 NAY Illness: Sleep Apnea 05/03/2018 11:59 NAY Illness: High Cholestrol 05/03/2018 11:59 NAY Illness: PE 05/03/2018 11:59 NAY Illness: BPH 05/03/2018 11:59 NAY PAST SURGERY HIST Surgery: BACK SURGERY X3 05/03/2018 11:59 NAY Surgery: LEFT LUNG LOBECTOMY 05/03/2018 11:59 NAY [facility] PATIENT NAME: JOVANI HOLMAN [address] [facility] [address] Ghosh MEDICAL REC #: [id number] [place] [address] EMERGENCY DEPARTMENT CHART EMERGENCY DEPARTMENT PHYSICIAN Surgery: IVC FILTER 05/03/2018 11:59 NAY NURSING ASSESSMENT ASSESSMENT NOTES 05/03/2018 12:20 pt presents with back pain after trying to lift a heavy object a couple of days ago- pt has hx of back problems and surgeries. pt was at the de clinic and states that the pt became unresponsive. 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 pt answering questions appropriately. pt aandamp;ox4, perrla +2, msps intact. heart sounds normal. lung sounds diminished to left lobe. respers easy and non-labored. 05/03/2018 12:22 KCP TREATMENT 05/03/2018 12:18 Patient Interaction - Introduce self to Patient. 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 05/03/2018 12:19 KCP 05/03/2018 12:19 Hourly Rounding - Rounding 05/03/2018 12:19 KCP Elimination/Toileting N Pain 8 Position Comfortable Y Safe Environment Y Fall Risk Change N 05/03/2018 12:19 Primary DOC Guide - A. Patient History 05/03/2018 12:19 KCP Primary History Source Patient [facility] PATIENT NAME: JOVANI HOLMAN [facility] Dr[address] 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 Geriatric (65+) Fall Risk Assessment 05/03/2018 12:19 KCP Do you feel unsteady when walking? No (0) Do you hold on to furniture when walking at home? No (0) Are you worried about falling? No (0) Do you need to push with hands to get up from chair? No (0) Do you have trouble stepping up onto a curb? No (0) Do you often have to alvarado to the toilet? No (0) Was patient provided a Fall Prevention Packet? No STEADI Score Total 0 STEADI Fall Assessment Score of 4 or greater? No Any falls in the last year? No (0) Use a cane or walker? No (0) Feel lightheaded or tired after taking medication? No (0) Numbness or loss of feeling in your feet? No (0) Take medications to help sleep or improve mood? No (0) 05/03/2018 12:19 Primary DOC Guide - D. Psychosocial Assessment 05/03/2018 12:20 KCP Over the Last 2 weeks, how often have you had little interest or pleasure in doing things (0) Not at All Is Psychosocial Assessment Score 3 or more? If score is 3 or more please consult ED Navigator! No Total Psychosocial Assessment Score 0 Over the last 2 weeks, how often have you been feeling down, depressed or hopeless (0) Not at All 05/03/2018 12:20 Primary DOC Guide - E. Family Violence Assessment 05/03/2018 12:20 KCP Indicators of Neglect No Indicators of Physical Abuse No Indicators of Sexual Abuse No Indicators of Verbal/Emotional Abuse No [facility] PATIENT NAME: JOVANI HOLMAN [address] [facility] [address] Ghosh MEDICAL REC #: [id number] [place] [address] EMERGENCY DEPARTMENT CHART EMERGENCY DEPARTMENT PHYSICIAN Within the past year, has anyone ever pushed, shoved, slapped, choked, hit, punched or kicked you: No Within the past year, has anyone ever pressured or forced you to have sexual activities when you did not want to: No Do you feel safe and well cared for: Yes Is there a partner from a previous or current relationship that is making you feel unsafe now: No 05/03/2018 13:57 Genitourinary - Voided Urine collected 05/03/2018 13:57 SLV 05/03/2018 13:57 Genitourinary - Specimen sent to Lab. 05/03/2018 13:57 SLV 05/03/2018 14:50 Admit/Discharge - Discharge 05/03/2018 15:55 KCP 05/03/2018 14:50 Admit/Discharge - Discharged via WC 05/03/2018 15:55 [facility] 05/03/2018 14:50 Discharge - Heplock removed dressing applied no bleeding noted 05/03/2018 15:55 [facility] 05/03/2018 14:50 Discharge - Printed discharge instructions given to pt. 05/03/2018 15:55 [facility] 05/03/2018 14:50 Discharge - Instructions reviewed with pt and verbalizes understanding 05/03/2018 15:55 [facility] 05/03/2018 14:50 Admit/Discharge - *Discharge instructions/tests andamp; procedures/med list reviewed and provided; prescriptions given to patient 05/03/2018 15:55 [facility] MEDICATIONS IV IV Fluid: B 05/03/2018 12:00 05/03/2018 12:00 NAY Line #: 1 Fluid: Saline Lock Rate: ml/hr Location: antecubital fossa right [facility] PATIENT NAME: JOVANI HOLMAN [facility] Dr[address] Ghosh MEDICAL REC #: [id number] [place] [address] EMERGENCY DEPARTMENT CHART EMERGENCY DEPARTMENT PHYSICIAN Ndl Gauge: 18 Notes: SQUAD START, FLUSHED AND PATENT IV Fluid: E 05/03/2018 14:50 05/03/2018 15:55 KCP Line #: 1 Rate: ml/hr Location: antecubital fossa right Ndl Gauge: 18 Notes: iv cath removed intact, dressing applied I AND O VITALS VS-ROUTINE Time: 05/03/2018 11:53 B/P: 137/71 - Left Upper Arm - Lying - Machine Pulse: 62 - Monitor Resp: 16 Sa02: 96 Room Air Temp: 97.50 F - Oral 05/03/2018 11:54 NAY VS-Pain Time: 05/03/2018 11:53 Pain Level: 8 05/03/2018 11:54 NAY VS-GCS Time: 05/03/2018 11:53 Visual: 3 Verbal: 5 Motor: 6 GCS Total: 14 05/03/2018 11:54 NAY VS-HT/WT Time: 05/03/2018 11:53 Ht: 177.8 cm Stated Weight: 97.5 kg Actual 05/03/2018 11:54 NAY VS-Visual Time: 05/03/2018 11:53 05/03/2018 11:54 NAY VS-FHT Time: 05/03/2018 11:53 05/03/2018 11:54 NAY VS-Notes Time: 05/03/2018 11:53 MAP 99 05/03/2018 11:54 NAY VS-ROUTINE Time: 05/03/2018 14:50 B/P: 150/87 - Right Upper Arm - Sitting - Machine Pulse: 77 - Monitor Resp: 18 Sa02: 95 Room Air 05/03/2018 15:56 KCP VS-Pain Time: 05/03/2018 14:50 Pain Level: 4 05/03/2018 15:56 KCP VS-GCS Time: 05/03/2018 14:50 Visual: 4 Verbal: 5 Motor: 6 GCS Total: 15 05/03/2018 15:56 KCP VS-HT/WT Time: 05/03/2018 14:50 05/03/2018 15:56 KCP VS-Visual Time: 05/03/2018 14:50 05/03/2018 15:56 KCP VS-FHT Time: 05/03/2018 14:50 05/03/2018 15:56 KCP VS-Notes Time: 05/03/2018 14:50 map 113 05/03/2018 [facility] PATIENT NAME: JOVANI HOLMAN [address] [facility] [address] Ghosh MEDICAL REC #: [id number] [place] [address] EMERGENCY DEPARTMENT CHART EMERGENCY DEPARTMENT PHYSICIAN 15:56 KCP ORDERS Discharge patient 05/03/2018 14:43 N/A Ordered: 05/03/2018 14:42 By . Other Reviewed: 05/03/2018 14:43 By . Other CLIENT SERVICES REPRESENTATIVE ORDER: POCTROP 05/03/2018 14:18 None Ordered: 05/03/2018 14:18 Completed Time: 05/03/2018 14:18 Results Time: 05/03/2018 14:18 UA ccms (cath if unable to void in 30 mins) 05/03/2018 14:21 N/A Ordered: 05/03/2018 13:47 By Corky Grande Completed Time: 05/03/2018 14:21 By Coryk Grande Noted Time: 05/03/2018 13:57 SLV Question: Lab Urine Specimen Type Answer: Clean Catch Question: Also Culture, if indicated by UA results (Y or N) Answer: YES Results Time: 05/03/2018 14:21 CLIENT SERVICES REPRESENTATIVE ORDER: CBCD 05/03/2018 13:08 None Ordered: 05/03/2018 13:08 Completed Time: 05/03/2018 13:08 Results Time: 05/03/2018 13:08 CLIENT SERVICES REPRESENTATIVE ORDER: GFRP 05/03/2018 12:52 None Ordered: 05/03/2018 12:52 Completed Time: 05/03/2018 12:52 Results Time: 05/03/2018 12:52 CLIENT SERVICES REPRESENTATIVE ORDER: BMP 05/03/2018 12:52 None Ordered: 05/03/2018 12:52 Completed Time: 05/03/2018 12:52 Results Time: 05/03/2018 12:52 CT abd and pel with IV con only 05/03/2018 13:40 N/A Ordered: 05/03/2018 12:21 By Corky Grande Completed Time: 05/03/2018 13:40 By Corky Gradne [facility] PATIENT NAME: JOVANI HOLMAN [facility] Dr[address] Ghosh MEDICAL REC #: [id number] [place] [address] EMERGENCY DEPARTMENT CHART EMERGENCY DEPARTMENT PHYSICIAN Indication: Back Pain, Non Traumatic Noted Time: 05/03/2018 13:32 Question: Patient has history of true RCM allergy? Answer: NO IV hep lock 05/03/2018 12:08 N/A Ordered: 05/03/2018 12:06 By Corky Grande Completed Time: 05/03/2018 12:08 By Corky Grande color television console monitor 05/03/2018 12:08 N/A Ordered: 05/03/2018 12:06 By Corky Grande Completed Time: 05/03/2018 12:08 By Corky Grande Toradol (IV)*(30mg/ml) DOSE: 15 mg IV 05/03/2018 12:37 N/A Ordered: 05/03/2018 12:06 By Corky Grande Completed Time: 05/03/2018 12:15 By Corky Grande Noted Time: 05/03/2018 12:08 KCP BMP 05/03/2018 13:22 N/A Ordered: 05/03/2018 11:59 By Protocol Completed Time: 05/03/2018 12:52 By Protocol Noted Time: 05/03/2018 12:08 KCP CBC with diff 05/03/2018 13:22 N/A Ordered: 05/03/2018 11:59 By Protocol Completed Time: 05/03/2018 13:08 By Protocol Noted Time: 05/03/2018 12:08 KCP EKG and most recent EKG 05/03/2018 12:12 N/A Ordered: 05/03/2018 11:59 By Protocol Completed Time: 05/03/2018 12:12 By Protocol Noted Time: 05/03/2018 12:07 CAMB POC troponin 05/03/2018 12:08 N/A Ordered: 05/03/2018 11:59 By Protocol Noted Time: 05/03/2018 12:08 KCP [facility] PATIENT NAME: JOVANI HOLMAN [facility] [address] Ghosh MEDICAL REC #: [id number] [place] [address] EMERGENCY DEPARTMENT CHART EMERGENCY DEPARTMENT PHYSICIAN DISCHARGE Diagnosis: Vasovagal syncope, Low back strain 05/03/2018 14:43 Disposition: Time: 05/03/2018 14:42 Discharge Time: 05/03/2018 14:50 Type: Discharge Condition: Stable for admission/discharge/transfer after emergency evaluation/treatment Category: *NOT APPLICABLE Referral: 05/03/2018 14:43 Admit Physician: . Other PRESCRIPTIONS Anaprox DS 550 mg Tab 05/03/2018 14:42 SI bid for 7 days Dispense: 14 / Refills: Zanaflex 4 mg tablet 05/03/2018 14:42 SI ta every 8 hrs pain for 7 days Dispense: 21 / Refills: CHARGES SIGNATURE Corky GIORDANO RNPCC KAMINI ALVAREZ RN KCP AMRIK MIRANDA MJSA [facility] PATIENT NAME: JOVANI HOLMAN [address] [facility] [address] Ghosh MEDICAL REC #: [id number] [place] [address] EMERGENCY DEPARTMENT CHART EMERGENCY DEPARTMENT PHYSICIAN UA COMPLETE Collected: 05/03/2018 Status: F Source: [facility] 1:59 PM [facility] REPOSITORY Order Comment: [place]: TYPE CODE TESTS RESULT OUT OF REFERENCE UNITS RANGE LAB L600.39374 UA COLOR Normal Sabina LAB L600.16575 CLEAR UA Normal APPEARANCE Hazy LAB L600.52949 1.005-1.030 UA SPEC Normal GRAV 1.060 LAB L600.77649 UA PH Normal 5.0 LAB L600.37204 UA GLUCOSE Normal NEG LAB L600.68284 UA KETONE Normal 20 LAB L600.08962 UA Normal BILIRUBIN NEGATIVE LAB L600.20456 UA Normal UROBILINOGEN 2.0 LAB L600.77939 NEGATIVE UA PROTEIN Normal 30 LAB L600.28752 NEGATIVE UA BLOOD Normal NEGATIVE LAB L600.38551 NEGATIVE UA NITRITE Normal NEGATIVE LAB L600.12560 NEGATIVE UA LK Normal ESTERASE NEG LAB L600.32600 0-5 WBC/HPF UA WBC Normal 2 LAB L600.39940 0-3 RBC/HPF UA RBC High 6 LAB L600.54506 0-5 EPI/HPF SQUAMOUS Normal EPIS 0 LAB L600.25871 NONE /HPF UA BACTERIA Normal TRACE LAB L600.81531 MUCUS Normal 4+ LAB L600.60250 0-1 /LPF HYALINE High CAST 73 Performed By: #### L600.47816 #### [facility] [address] [phone] EKG Observed: 05/03/2018 Status: UNK Source: [facility] 12:41 PM [facility] REPOSITORY Procedure Date and Time: 05/03/181206 Test Reason : STAT Blood Pressure : / mmHG Vent. Rate : 059 BPM Atrial Rate : 059 BPM P-R Int : 190 ms QRS Dur : 106 ms QT Int : 422 ms P-R-T Axes : 021 -21 011 degrees QTc Int : 417 ms Sinus bradycardia Nonspecific T wave abnormality Abnormal ECG No previous ECGs available Confirmed by MAURICE OROZCO A. ([id number]) on 05/03/2018 3:54:44 PM Referred By: Corky Grande Confirmed By:Stephanie OROZCO M.D.FACC Román DDandT: 05/03/181206 TDandT: [facility] PATIENT NAME: JOVANI HOLMAN [facility] [address] Ghosh MEDICAL REC #: [id number] [place] [address] ADMIT DATE: DISCHARGE DATE: ATTENDING PHY: Alba Plata,Emergency Physi ELECTROCARDIOGRAM REPORT CLB cc: [facility] PATIENT NAME: JOVANI HOLMAN [facility] [address] Ghosh MEDICAL REC #: [id number] [place] [address] ADMIT DATE: DISCHARGE DATE: ATTENDING PHY: Alba Plata,Emergency Physi ELECTROCARDIOGRAM REPORT CT ABD/PEL W IV Observed: 05/03/2018 Status: F Source: [facility] CONTRAST ONLY 12:41 PM [facility] CT ABD/PEL W IV CONTRAST ONLY Ordering Physician: Corky Grande MD 05/03/2018 12:21 PM COMPUTED TOMOGRAPHY ABDOMEN AND PELVIS Clinical Statement: Back and lower abdominal pain TECHNIQUE: 3.75 mm thick axial images of the abdomen and pelvis were obtained following the administration of 100 cc of Isovue-300 intravenous contrast. There were no prior studies available for comparison. FINDINGS: The lung bases show no acute abnormalities. There is a calcified granuloma in the right lower lobe. The liver, spleen and pancreas show no acute findings. The gallbladder is unremarkable. No ductal dilatation is shown. The adrenal glands are unremarkable. The kidneys enhance normally with no hydronephrosis. An inferior vena cava filter is present. No upper abdominal fluid collections are seen. There is no evidence of bowel obstruction. There is diverticulosis with no evidence of acute diverticulitis. There is no evidence of acute appendicitis. There is diffuse wall thickening of the urinary bladder. There is surrounding perivesical soft tissue stranding. There is mild presacral edema. The findings are compatible with cystitis. The prostate gland is prominent measuring 4.8 cm in diameter. There are prostate calcifications. The aorta is atherosclerotic with no acute findings. There are degenerative changes in the spine. No acute osseous abnormalities are present. No lymphadenopathy is shown. There are small scattered retroperitoneal lymph nodes. IMPRESSION: Diffuse prominence of the wall the urinary bladder with perivesical and presacral soft tissue stranding compatible with cystitis. ---- Electronic Signature on File ---- Signed By: Lucho Armas MD FACR [email or web address] Dictated: 05/03/2018 1:31 PM Signed: 05/03/2018 1:36 PM Reported By: LUCHO ARMAS M.D. Signed By: LUCHO ARMAS M.D. [facility] Collected: 05/03/2018 Status: F Source: [facility] 12:23 PM [facility] TYPE CODE TESTS RESULT OUT OF RANGE REFERENCE UNITS LAB L500.52309 136-145 MMOL/L Normal NA 143 LAB L500.05370 3.5-5.1 MMOL/L Low K 3.0 Result Comment: Slight Hemolysis, Result may be falsely increased. LAB L500.16146 98-107 MMOL/L High CL 111 LAB L500.26038 21-32 MMOL/L Normal CO2 21 LAB L500.47185 5-16 MMOL/L Normal AGAP 10 LAB L500.85167 70-100 MG/DL Normal GLU 94 Result Comment: 70-100- Normal Fasting; 100-125 Impaired Fasting; greater than 126 on more than one result- Diabetes. ADA guidelines. Results may be falsely elevated after the administration of Sulfapyridine. Results may be falsely depressed after the administration of Sulfasalazine. LAB L500.04414 7-26 MG/DL Normal BUN 20 LAB L500.07042 0.670-1.170 MG/DL Normal CREAT 1.000 Result Comment: Patients receiving either N-Acetylcysteine (NAC) or Metamizole prior to venipuncture, may have falsely depressed results. LAB L500.05039 15-24 Normal BUN/CREA 20 LAB L500.81660 8.5-10.1 MG/DL Low CALCIUM TOTAL 7.4 Performed By: #### L500.08122, L500.50955 #### [facility] [address] [place] [address] GFR EST Collected: 05/03/2018 Status: F Source: [facility] 12:23 PM [facility] REPOSITORY TYPE CODE TESTS RESULT OUT OF RANGE REFERENCE UNITS LAB L500.76072 ML/MIN Normal IF non-AFR Greater than AMER 60 LAB L500.64783 ML/MIN Normal IF Greater than AMER 60 Performed By: #### L500.72480, L500.96779 #### [facility] [address] [place] [address] CBC W/DIFF Collected: 05/03/2018 Status: F Source: [facility] 12:23 PM [facility] REPOSITORY TYPE CODE TESTS RESULT OUT OF RANGE REFERENCE UNITS LAB L200.28634 4.5-11.0 K/CU MM Normal WBC 7.8 LAB L200.28289 4.50-6.00 M/CU MM Low RBC 3.91 LAB L200.16317 13.5-17.5 G/DL Low HGB 12.7 LAB L200.11560 41.0-53.0 % Low HCT 37.8 LAB L200.49443 80.0-99.0 fl Normal MCV 96.7 LAB L200.68923 32.0-36.0 GM/DL Normal MCHC 33.6 LAB L200.07356 11-14.5 Normal RDW 13.3 LAB L200.12886 9.4-12.4 Normal MPV 12.4 LAB L200.42268 150-450 K/CU MM Low PLT 98 Result Comment: Confirmed by slide estimate. LAB L200.70559 45-75 % NEUTROPHILS 71.0 Normal % LAB L200.59876 Less than % 2 IMMATURE 0.3 Normal GRAN % LAB L200.37307 20-40 % Low LYMPH % 18.4 LAB L200.45790 2-10 % MONOCYTE % 9.0 Normal LAB L200.03611 0-5 % EOSINOPHIL 0.9 Normal % LAB L200.01779 0-2 % BASOPHIL % 0.4 Normal LAB L200.85719 2.0-8.3 K/CU MM NEUTROPHIL 5.60 Normal ABS LAB L200.66165 Less than K/CU MM 2 IMMATR GRAN 0.00 Normal ABS LAB L200.89066 0.9-4.4 K/CU MM LYMPH ABS 1.40 Normal LAB L200.27196 0.1-1.1 K/CU MM MONO ABS 0.70 Normal LAB L200.53586 0-0.5 K/CU MM EOS ABS 0.10 Normal LAB L200.11754 0-0.2 K/CU MM BASO ABS 0.00 Normal LAB L200.05605 Less than % 1 NRBC 0.0 Normal LAB L200.00060 POIK 1+ Normal LAB L200.96768 OVALOCYTES 1+ Normal LAB L200.23397 PLT EST MOD Normal DECREASED LAB L200.28163 PLT MORPH LARGE Normal FORMS NOTED Performed By: #### L200.26221 #### [facility] [address] [place] [address] TROPONIN I POC Collected: 05/03/2018 Status: F Source: [facility] 12:08 PM [facility] REPOSITORY TYPE CODE TESTS RESULT OUT OF RANGE REFERENCE UNITS LAB L550.50007 0.0-0.06 NG/ML Normal TROPONIN I POC 0.00 Result Comment: 0.0 - 0.06 NG/ML - NON- DIAGNOSTIC (REFERENCE RANGE) 0.07 - 0.59 NG/ML - INDETERMINATE Greater than or equal to 0.6 NG/ML - INDICATIVE OF MYOCARDIAL DAMAGE CT OUTSIDE CD DICOM Observed: 05/03/2018 Status: F Source: [facility] IMPORT -NBNR 12:00 AM [facility] REPOSITORY Images were obtained outside of [facility] [id number] Observed: 01/17/2018 Status: COMPLETED Source: [place] 12:00 AM [facility] REPOSITORY Letter Text [facility] Authorization for the Release of Medical Information I hereby jayy permission for the release of medical information relating to my care to the parties named here: REQUEST FROM: SEND TO: /Jeffrey/Jeff. [facility] [address] [place] [id number] The purpose of this release is for the continuing care and treatment of this patient by the [facility]. I specify that this release include: Discharge Summary Operative Reports Radiology Reports/Forms Pathology Reports Laboratory Reports All Medical Reports Cardiac Reports Drug, Alcohol, Psychiatric Information __ This authorization specifically pertains to information related to my treatment which occurred on: __ To assist in identification and location of my records, I am providing the following; Name CCF ID# Address Date Social Security# THIS AUTHORIZATION FOR RELEASE OF INFORMATION WILL 60 DAYS AFTER THE DATE SIGNED AND IS SUBJECT TO WRITTEN REVOCATION AT ANY TIME PRIOR TO THE EXPIRATION EXCEPT TO THE EXTENT THAT ACTION HAS BEEN TAKEN IN RELIANCE THEREON. Signature of Patient or Legal Guardian: Date: Relationship if other than Patient: This authorization complies with 42CRF Part 2 NM CARDIAC PERF Observed: 01/16/2018 Status: F Source: [place] STRESS/PHARM 10:10 AM CLINIC OTHER CAMPUS REPOSITORY * * *Final Report* * * DATE OF EXAM: Jan 16 2018 10:10AM ILGIA 0006 - NM CARDIAC PERF STRESS/PHARM / PROCEDURE REASON: multiple diagnoses * * * * Physician Interpretation * * * * PATIENT: Name: JOVANI HOLMAN Age: 67 years Gender: M CONCLUSIONS: 1. SPECT Perfusion Study: Normal. 2. There is no scintigraphic evidence for inducible ischemia. 3. No evidence of scarred myocardium. 4. Functional capacity N/A (pharmacological). 5. Left ventricle is normal in size. The left ventricle systolic function is normal. 6. Right ventricle is normal in size. 7. This is a low risk scan. LVEF % 66 Prior Study Comparison No prior nuclear cardiology exam available for comparison. Nuclear Med Report:1-Day Tc-Tetrofosmin Gated SPECT Myocardial Perfusion with Regadenoson Stress: Myocardial perfusion imaging was performed at rest 30 minutes following the IV injection of Tc-99m tetrofosmin. The patient received 0.4 mg of regadenoson, via rapid IV push, immediately followed by Tc-99m tetrofosmin IV. Gated post stress tomographic imaging was performed 30 to 60 minutes later. See administered doses below. [facility] Date of service: 01/16/2018 7:42:44 AM Ordering Physician: Herminio Linares Requesting Physician: Indication: CP - Uninterpretable/equivocal stress ECG test. Interpreting physician: Wanda Ford DO Patient History: History of hypertension, family hx of premature CAD, dyslipidemia and Prior smoker. Medications currently taking are statins, ASA and diuretic. Height: 175.26 cm BSA: 2.13 m? Weight: 93.44 kg BMI: 30.4 kg/m? Exam Type: Rest Stress Radiopharm: Tc-99m Tetrofosmin Tc-99m Tetrofosmin Dosage(mCi): 11.9 35.0 Atten Correction: not performed not performed Stress Agent: Regadenoson 0.4mg Supply provided from [facility] Resting Heart Rate: 54 bpm Resting Blood Press: 158/84 mmHg Image Quality The overall study imaging quality was deemed to be good. FINDINGS: LVEF: 66 % LEFT VENTRICLE The left ventricle is normal in size. Left ventricular systolic function is normal. Right Ventricle The right ventricle is normal in size. Stress Test Findings: There is no scintigraphic evidence for inducible ischemia. There is no evidence of scarring. The stress test was terminated due to the following: End of Protocol. Peak HR 75 bpm. (50 % MPHR) Peak BP 168 mmHg/61 mmHg Patient experienced shortness of breath during stress. Stress ECG normal ST segment response and normal sinus rhythm. Stress complications: none. Final Tire Service Technician: IMANI Transcrigabo Date/Time: Jan 16 2018 7:42A Dictated by : WANDA FORD DO This examination was interpreted and the report reviewed and electronically signed by: WANDA FORD DO on Jan 16 2018 4:52PM EST [id number] Observed: 01/14/2018 Status: COMPLETED Source: [place] 12:00 AM [facility] REPOSITORY Patient Update (FAMPWS) JOVANI HOLMAN ([id number]) 1950 M Date Time Provider Department 01/14/18 HERMINIO LINARESWS During your visit today, we recorded the following information about you: Allergies As of Date: 01/14/2018 Noted Allergy Reaction BACTRIM (SULFAMETHOXAZOLE-TRIMETH*11/18/2008 14 - Other: See Comments Comments: sore throat LEVAQUIN (LEVOFLOXACIN) 06/10/2005 8 - GI Upset Date Reviewed: 01/11/2018 Reviewed by: Herminio Linares - Fully Assessed Order(s):CBCDIF (EXTERNAL) [5736111] Order #: [id number] CMP (EXTERNAL) [[id number]] Order #: [id number] LIPID PANEL (OUTSIDE) [0713790] Order #: [id number] TSH (EXTERNAL) [[id number]] Order #: [id number] HBA1C (OUTSIDE) [[id number]] Order #: [id number] Prescriptions as of 01/14/2018 Sig: ASPIRIN 81 MG TABLET,DELAYED * Take 81 mg by mouth once effie* OSTEO BI-FLEX ORAL Take by mouth. DOXAZOSIN 8 MG TABLET Take 1 tablet by mouth every * ATORVASTATIN 10 MG TABLET Take 1 tablet by mouth once d* HYDROCHLOROTHIAZIDE 25 MG TAB* Take 1 tablet by mouth once d* OMEPRAZOLE 20 MG CAPSULE,JULIET* Take 1 capsule by mouth daily* Problem List As Of Date 01/14/2018 Noted Resolved Tobacco use disorder [F17.200] 08/05/2016 SOLAR LENGINES [L81.9] INVALID FOR* Priority: D Idiopathic urticaria [L50.1] INVALID FOR* Priority: D Lumbago [M54.5] INVALID FOR* Priority: M BPH (benign prostatic hypertrophy) [N40.0] INVALID FOR* Priority: C Bladder neck obstruction [N32.0] INVALID FOR* Priority: C Diverticulosis of colon (without mention of hem*INVALID FOR* Priority: C More... More... Essential hypertension [I10] INVALID FOR* Priority: A More... Tobacco abuse [Z72.0] INVALID FOR*08/05/2016 Priority: D More... Other pulmonary embolism and infarction [I26.99]INVALID FOR* Priority: B More... Mixed hyperlipidemia [E78.2] INVALID FOR* Priority: A More... More... 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 Screening for colon cancer [Z12.11] INVALID FOR* Mixed simple and mucopurulent chronic bronchiti*INVALID FOR* Priority: A Agent orange exposure [Z77.098] INVALID FOR* Priority: B Coronary artery disease due to lipid rich plaqu*INVALID FOR* Priority: A More... Well adult exam [Z00.00] INVALID FOR* Priority: E More... Chronic obstructive pulmonary disease (COPD) (H* Ex-smoker [Z87.891] INVALID FOR* Priority: B More... Chewing tobacco use [Z72.0] INVALID FOR* Priority: B Medicare annual wellness visit, subsequent [Z00*INVALID FOR* Priority: E More... PVC's (premature ventricular contractions) [I49*INVALID FOR* Encounter Status:Closed by HERMINIO LINARES on 01/14/18 YUDELKA Observed: 01/13/2018 Status: COMPLETED Source: [place] 12:00 AM [facility] [place] REPOSITORY Telephone ([facility]ME) JOVANI HOLMAN (105) 1950 M Date Time Provider Department 01/13/18 ENRIQUETA RAYGOZA (RN) [facility] During your visit today, we recorded the following information about you: Enriqueta Raygoza (Shima), RN 01/13/2018 1:32 PM Addendum Spoke with patient regarding reminder for stress test Tuesday and given instructions Allergies As of Date: 01/13/2018 Noted Allergy Reaction BACTRIM (SULFAMETHOXAZOLE-TRIMETH*11/18/2008 14 - Other: See Comments Comments: sore throat LEVAQUIN (LEVOFLOXACIN) 06/10/2005 8 - GI Upset Date Reviewed: 01/11/2018 Reviewed by: Herminio Linares - Fully Assessed Reason for Visit: Reminder Call [[id number]] Prescriptions as of 01/13/2018 Sig: ASPIRIN 81 MG TABLET,DELAYED * Take 81 mg by mouth once effie* OSTEO BI-FLEX ORAL Take by mouth. DOXAZOSIN 8 MG TABLET Take 1 tablet by mouth every * ATORVASTATIN 10 MG TABLET Take 1 tablet by mouth once d* HYDROCHLOROTHIAZIDE 25 MG TAB* Take 1 tablet by mouth once d* OMEPRAZOLE 20 MG CAPSULE,JULIET* Take 1 capsule by mouth daily* Problem List As Of Date 01/13/2018 Noted Resolved Tobacco use disorder [F17.200] 08/05/2016 SOLAR LENGINES [L81.9] INVALID FOR* Priority: D Idiopathic urticaria [L50.1] INVALID FOR* Priority: D Lumbago [M54.5] INVALID FOR* Priority: M BPH (benign prostatic hypertrophy) [N40.0] INVALID FOR* Priority: C Bladder neck obstruction [N32.0] INVALID FOR* Priority: C Diverticulosis of colon (without mention of hem*INVALID FOR* Priority: C More... More... Essential hypertension [I10] INVALID FOR* Priority: A More... Tobacco abuse [Z72.0] INVALID FOR*08/05/2016 Priority: D More... Other pulmonary embolism and infarction [I26.99]INVALID FOR* Priority: B More... Mixed hyperlipidemia [E78.2] INVALID FOR* Priority: A More... More... 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 Screening for colon cancer [Z12.11] INVALID FOR* Mixed simple and mucopurulent chronic bronchiti*INVALID FOR* Priority: A Agent orange exposure [Z77.098] INVALID FOR* Priority: B Coronary artery disease due to lipid rich plaqu*INVALID FOR* Priority: A More... Well adult exam [Z00.00] INVALID FOR* Priority: E More... Chronic obstructive pulmonary disease (COPD) (H* Ex-smoker [Z87.891] INVALID FOR* Priority: B More... Chewing tobacco use [Z72.0] INVALID FOR* Priority: B Medicare annual wellness visit, subsequent [Z00*INVALID FOR* Priority: E More... PVC's (premature ventricular contractions) [I49*INVALID FOR* Encounter Status:Closed by ENRIQUETA RAYGOZA on 01/13/18 PROGRESS Observed: 01/11/2018 Status: COMPLETED Source: [place] 5:05 PM [facility] REPOSITORY HNO ID: [id number] Author: Herminio Linares Service: (none) Author Type: Physician Type: Progress Notes Filed: 01/11/2018 6:32 PM Note Text: Medicare Yearly Visit Medical B eligibilty date 07/06/2013 Date of last exam NA PAST MEDICAL HISTORY Diagnosis Date - Adenomatous colon polyp 10/25/20132008 - Agent orange exposure 02/21/2016 - Bladder neck obstruction 09/19/2008 - BPH (benign prostatic hypertrophy) 09/19/2008 - Chewing tobacco use 01/11/2018 - Chronic obstructive pulmonary disease (COPD) (HCC) - Coronary artery disease due to lipid rich plaque 01/11/2018 Cath around 2010 was told had one vessel at 30% blocked and maker at 50 %. As to be managed medically. - Diverticulosis of colon (without mention of hemorrhage) - Essential hypertension 09/13/2010 -continue home regimen of atenolol 50, amlodipine 5, HCTZ 25 - Ex-smoker 01/11/2018 Started around age 8 up to 2 PPD and quit 2009 - GERD (gastroesophageal reflux disease) 11/23/2013 - Hemorrhage of rectum and anus 10/23/2008 - Idiopathic urticaria 11/10/2006 - Leg edema 09/16/2010 - Lumbago 09/19/2008 - Lupus erythematosus ? if this was a true Dx. - Mixed hyperlipidemia 09/14/2010 Chol 182 Tri 98 HDL 35 LDL 127 - Mixed simple and mucopurulent chronic bronchitis (HCC) 01/22/2016 - RAYRAY (obstructive sleep apnea) AHI 5.1 per 4% AND OS 10/15/2015 Was not able to tolerate - Other pulmonary embolism and infarction 09/13/2010 -pt had PE and DVT in 2005 after back surgery -an IVC filter was placed then and is still in place Was on coumadin for a time and then quit taking it on his own - Postinflammatory pulmonary fibrosis (HCC) 09/16/2010 - Presence of IVC filter 12/29/2014 - SOLAR LENGINES 06/08/2006 PAST SURGICAL HISTORY Procedure Laterality Date - COLONOS W/REM POLYP SNARE 01/06/16 adenomatous polyp - 3 year follow up - COLONOSCOP W/ OR W/O BRSH SPEC 10/23/2008 Colonoscopy, tubular adenoma - KIDNEY SURGERY HX - LEFT HEART CATH,PERCUTANEOUS 09/14/2010 Cardiac cath, L heart - PAST SURGICAL HISTORY OF 1997 partial removal left lung - [facility] - PAST SURGICAL HISTORY OF 3 back surgeries - REMV LENS MATERIAL,PHACOFRAGMT 2009 Cataract Extraction (right and left) Bactrim [Sulfamethoxazole-Trimethoprim]; Levaquin [Levofloxacin] Medications reviewed: Yes FAMILY HISTORY Problem Relation Age of Onset - Diabetes Father - Stroke Father - Stroke Mother - Alzheimer's Disease Mother - Cancer Brother throat ca SOCIAL HISTORY: Social History Marital status: Spouse name: Years of education: Number of children: Social History Main Topics Smoking status: Former Smoker Packs/day: 0.50 Years: 40.00 Types: Cigarettes Quit date: 12/04/2010 Smokeless tobacco: Current User Types: Chew Comment: quit smoking and chewing tobacco Alcohol use: No Drug use: No Jovani denies regular aerobic exercise. He watches his diet for sodium, low fat and low cholesterol generally not very much. List of current specialists seen: [facility], [facility] Planning discussed including patients advanced directive wishes: Yes I am willing to follow Jovani's advanced directives. Depression screen He in the past two weeks denies having felt down, depressed, hopeless or with little interest or pleasure in doing things. Functional Ability/Safety Screen 1. Was the patient's timed Up and Go test unsteady or longer than 30 seconds? No 2. Does the patient need help with the phone, transportation, shopping,preparing meals, housework, laundry, medications or managing money? No 3. Does your home have rugs in the hallway, lack of grab bars in the bathroom (Y), lack of handrails on the stairs or have poor lighting? No Hearing Evaluation: normal PHYSICAL EXAM BP 110/82 Pulse 86 Temp 37.5 ?C (99.5 ?F) (Right Tympanic) Resp 12 Wt 93.4 kg (206 lb) BMI 30.42 kg/m? Alert and oriented X 3: YES Body mass index is 30.42 kg/m?. See below ASSESSMENT/PLAN: 67 year old male The following prevention plan was discussed during the office visit and provided to the patient: See below. Gets vision checks with the [place] Herminio Linares Chief Complaint Patient presents with: Establish Care HPI Jovani Holman is a 67 year old male who presents here today for extensive exam and to establishment of care. Patient with hx as reviewed, documented and updated below. Sees [place] for routine health. Has been having SESAY and reduced physical tolerance for about 2 years but has been progressing. Discussed with [place] and had a breathing test and was told it was ok. No heaviness or tightness in chest with this. No jaw discomfort. No palpitations, diaphoresis or nausea. Past medical history, appointments, medications, allergies reviewed. Previous Medical History PAST MEDICAL HISTORY Diagnosis Date - Adenomatous colon polyp 10/25/20132008 - Agent orange exposure 02/21/2016 - Bladder neck obstruction 09/19/2008 - BPH (benign prostatic hypertrophy) 09/19/2008 - Chewing tobacco use 01/11/2018 - Chronic obstructive pulmonary disease (COPD) (HCC) - Coronary artery disease due to lipid rich plaque 01/11/2018 Cath around 2010 was told had one vessel at 30% blocked and maker at 50 %. As to be managed medically. - Diverticulosis of colon (without mention of hemorrhage) - Essential hypertension 09/13/2010 -continue home regimen of atenolol 50, amlodipine 5, HCTZ 25 - Ex-smoker 01/11/2018 Started around age 8 up to 2 PPD and quit 2009 - GERD (gastroesophageal reflux disease) 11/23/2013 - Hemorrhage of rectum and anus 10/23/2008 - Idiopathic urticaria 11/10/2006 - Leg edema 09/16/2010 - Lumbago 09/19/2008 - Lupus erythematosus ? if this was a true Dx. - Mixed hyperlipidemia 09/14/2010 Chol 182 Tri 98 HDL 35 LDL 127 - Mixed simple and mucopurulent chronic bronchitis (HCC) 01/22/2016 - RAYRAY (obstructive sleep apnea) AHI 5.1 per 4% AND OS 10/15/2015 Was not able to tolerate - Other pulmonary embolism and infarction 09/13/2010 -pt had PE and DVT in 2005 after back surgery -an IVC filter was placed then and is still in place Was on coumadin for a time and then quit taking it on his own - Postinflammatory pulmonary fibrosis (HCC) 09/16/2010 - Presence of IVC filter 12/29/2014 - SOLAR LENGINES 06/08/2006 Previous Surgical History PAST SURGICAL HISTORY Procedure Laterality Date - COLONOS W/REM POLYP SNARE 01/06/16 adenomatous polyp - 3 year follow up - COLONOSCOP W/ OR W/O BRSH SPEC 10/23/2008 Colonoscopy, tubular adenoma - KIDNEY SURGERY HX - LEFT HEART CATH,PERCUTANEOUS 09/14/2010 Cardiac cath, L heart - PAST SURGICAL HISTORY OF 1997 partial removal left lung - [facility] - PAST SURGICAL HISTORY OF 3 back surgeries - REMV LENS MATERIAL,PHACOFRAGMT 2009 Cataract Extraction (right and left) Family History FAMILY HISTORY Problem Relation Age of Onset - Diabetes Father - Stroke Father - Stroke Mother - Alzheimer's Disease Mother - Cancer Brother throat ca Patient Allergies ALLERGIES Allergen Reactions - Bactrim [Sulfametho* Other: See Comments sore throat - Levaquin [Levofloxa* GI Upset Current Medications Current Outpatient Prescriptions on File Prior to Visit: doxazosin (CARDURA) 8 mg tablet Take 1 tablet by mouth every evening. atorvastatin (LIPITOR) 10 mg tablet Take 1 tablet by mouth once daily. hydrochlorothiazide (HYDRODIURIL, ESIDRIX) 25 mg tablet Take 1 tablet by mouth once daily. omeprazole (PRILOSEC) 20 mg capsule Take 1 capsule by mouth daily before breakfast. 1/2 hr before meal. No current facility-administered medications on file prior to visit. Social History Social History Marital status: Spouse name: Years of education: Number of children: Social History Main Topics Smoking status: Former Smoker Packs/day: 0.50 Years: 40.00 Types: Cigarettes Quit date: 12/04/2010 Smokeless tobacco: Current User Types: Chew Comment: quit smoking and chewing tobacco Alcohol use: No Drug use: No Review of Symptoms REVIEW OF SYSTEMS NECK: Negative for lumps, goiter, pain and significant neck swelling RESPIRATORY: Negative for cough, hemoptysis, wheezing, COPD. See HPI CARDIOVASCULAR: Negative for chest pain, leg swelling, hypertension, CHF or palpitations GI: No nausea, vomiting, or diarrhea, No heartburn or reflux symptoms and no blood : No history of dysuria or blood NEURO: No history of headaches, syncope, paralysis, seizures or tremors EXAM: BP 110/82 Pulse 86 Temp 37.5 ?C (99.5 ?F) (Right Tympanic) Resp 12 Wt 93.4 kg (206 lb) BMI 30.42 kg/m? Last 6 Encounter Wt Readings: Date: Wt: 01/11/2018 93.4 kg (206 lb) 06/30/2017 89.8 kg (198 lb) 12/17/2016 93.9 kg (207 lb) 09/02/2016 91.7 kg (202 lb 3.2 oz) 08/05/2016 91.2 kg (201 lb) 01/30/2016 93 kg (205 lb) General Appearance: Well appearing, alert, in no acute distress, well-hydrated, well nourished., Overweight. Neck: Supple, no adenopathy; thyroid symmetric, normal size, no bruits. Lungs: Lungs clear to auscultation. No wheezing, rhonchi, rales. Heart: RRR without gallop, or rubs. No ectopy, Positive findings: murmur: 2/6 systolic low pitched soft murmur diffuse . Abdomen: Normal abdominal exam, Abdomen soft, non-tender. Bowel sounds normal. No masses, organomegaly. Extremities: No deformities. Has mild edema in both lower extremities. Peripheral Pulses: Normal. Neurologic: Gait normal. Sensation to light touch and crainal nerves 2-12 grossly intact.. Health Maintenance List DTAP,TDAP,TD(1 - Tdap) due on 1967 HEPATITIS C SCREENING due on 1992 DIABETES SCREEN due on 07/24/2017 COLORECTAL CANCER SCREENING,SEE MODIFIER due on 01/05/2019 LIPID SCREEN due on 07/24/2019 PROSTATE CANCER SCREENING DISCUSSION Completed ABDOMINAL AORTIC ANEURYSM SCREENING TOPIC Completed ADULT PREVNAR-13 Completed PNEUMOVAX AGE 65 AND OVER WITH 5YR LOOKBACK Completed Data reviewed In Office EKG showed PVC's which were new. Left axis deviation. No acute ST or T wave changes when compared to EKG from 09/14/2010 A/P ASSESSMENT/PLAN: 1. Medicare annual wellness visit, subsequent - ICD9: V70.0, ICD10: Z00.00 (primary diagnosis) - Recommended regular aerobic exercise. - Follow up for annual exam in one year. 2. SESAY (dyspnea on exertion) - ICD9: 786.09, ICD10: R06.09 Check - ECG COMPLETE W INTERPRETATION - ECHO - NM CARDIAC PERF STRESS/PHARM - Get copies of PFT's from [place] 3. Decreased activity tolerance - ICD9: 780.99, ICD10: R68.89 Check - ECG COMPLETE W INTERPRETATION - ECHO - NM CARDIAC PERF STRESS/PHARM 4. Coronary artery disease due to lipid rich plaque - ICD9: 414.00, 414.3, ICD10: I25.10, I25.83 Check - ECG COMPLETE W INTERPRETATION - ECHO - NM CARDIAC PERF STRESS/PHARM - Get copies of most recent labs from [place]. 5. Mixed hyperlipidemia - ICD9: 272.2, ICD10: E78.2 - [facility]wait [facility] - Continue current medication. - Encouraged following a low fat, low cholesterol diet. - Discussed the benefits of regular aerobic exercise and weight loss. - Encouraged following a low carbohydrate, healthy oil intake diet. 6. Essential hypertension - ICD9: 401.9, ICD10: I10 - good control - Continue current medication(s) - Recommended regular aerobic exercise. - Recommend home blood pressure monitoring, to bring results in on next visit - Goal of BP <140/90 - ECG COMPLETE W INTERPRETATION 7. Chronic obstructive pulmonary disease, unspecified COPD type (HCC) - ICD9: 496, ICD10: J44.9 - [facility] await [facility] reports. 8. Mixed simple and mucopurulent chronic bronchitis (HCC) - ICD9: 491.1, ICD10: J41.8 - As above 9. Postinflammatory pulmonary fibrosis (HCC) - ICD9: 515, ICD10: J84.10 - As above 10. Gastroesophageal reflux disease without esophagitis - ICD9: 530.81, ICD10: K21.9 - Continue treatment with Prilosec 20 mg QD 11. Chewing tobacco use - ICD9: 305.1, ICD10: Z72.0 - Cessation encouraged. - Counseling was given focusing on the harmful effects of this addiction especially given the patient's medical condition(s) which will be worsened because of the chemicals in tobacco. 12. Heart murmur - ICD9: 785.2, ICD10: R01.1 Check - ECHO 13. PVC's (premature ventricular contractions) - ICD9: 427.69, ICD10: I49.3 check - NM CARDIAC PERF STRESS/PHARM 14. Abnormal finding on EKG - ICD9: 794.31, ICD10: R94.31 Check - NM CARDIAC PERF STRESS/PHARM f/u 6 months routine Time with patient face to face was 40 min for extensive exam and 10 min for medicare wellness. Herminio Linares MD CNOV Observed: 01/11/2018 Status: COMPLETED Source: [place] 4:40 PM [facility] REPOSITORY Office Visit (FAMPWS) JOVANI HOLMAN ([id number]) 1950 M Date Time Provider Department 01/11/18 4:40 PM [facility]MINIO LINARES [facility] During your visit today, we recorded the following information about you: Temperature Pulse Respiration Blood pressure 99.5 degrees 86/minute 12/minute 110/82 Weight 93.4 kg Herminio Linares 01/11/2018 6:32 PM Signed Medicare Yearly Visit Medical B eligibilty date 07/06/2013 Date of last exam NA PAST MEDICAL HISTORY Diagnosis Date - Adenomatous colon polyp 10/25/20132008 - Agent orange exposure 02/21/2016 - Bladder neck obstruction 09/19/2008 - BPH (benign prostatic hypertrophy) 09/19/2008 - Chewing tobacco use 01/11/2018 - Chronic obstructive pulmonary disease (COPD) (HCC) - Coronary artery disease due to lipid rich plaque 01/11/2018 Cath around 2010 was told had one vessel at 30% blocked and maker at 50 %. As to be managed medically. - Diverticulosis of colon (without mention of hemorrhage) - Essential hypertension 09/13/2010 -continue home regimen of atenolol 50, amlodipine 5, HCTZ 25 - Ex-smoker 01/11/2018 Started around age 8 up to 2 PPD and quit 2009 - GERD (gastroesophageal reflux disease) 11/23/2013 - Hemorrhage of rectum and anus 10/23/2008 - Idiopathic urticaria 11/10/2006 - Leg edema 09/16/2010 - Lumbago 09/19/2008 - Lupus erythematosus ? if this was a true Dx. - Mixed hyperlipidemia 09/14/2010 Chol 182 Tri 98 HDL 35 LDL 127 - Mixed simple and mucopurulent chronic bronchitis (HCC) 01/22/2016 - RAYRAY (obstructive sleep apnea) AHI 5.1 per 4% AND OS 10/15/2015 Was not able to tolerate - Other pulmonary embolism and infarction 09/13/2010 -pt had PE and DVT in 2005 after back surgery -an IVC filter was placed then and is still in place Was on coumadin for a time and then quit taking it on his own - Postinflammatory pulmonary fibrosis (HCC) 09/16/2010 - Presence of IVC filter 12/29/2014 - SOLAR LENGINES 06/08/2006 PAST SURGICAL HISTORY Procedure Laterality Date - COLONOS W/REM POLYP SNARE 01/06/16 adenomatous polyp - 3 year follow up - COLONOSCOP W/ OR W/O BRSH SPEC 10/23/2008 Colonoscopy, tubular adenoma - KIDNEY SURGERY HX - LEFT HEART CATH,PERCUTANEOUS 09/14/2010 Cardiac cath, L heart - PAST SURGICAL HISTORY OF 1997 partial removal left lung - [facility] - PAST SURGICAL HISTORY OF 3 back surgeries - REMV LENS MATERIAL,PHACOFRAGMT 2009 Cataract Extraction (right and left) Bactrim [Sulfamethoxazole-Trimethoprim]; Levaquin [Levofloxacin] Medications reviewed: Yes FAMILY HISTORY Problem Relation Age of Onset - Diabetes Father - Stroke Father - Stroke Mother - Alzheimer's Disease Mother - Cancer Brother throat ca SOCIAL HISTORY: Social History Marital status: Spouse name: Years of education: Number of children: Social History Main Topics Smoking status: Former Smoker Packs/day: 0.50 Years: 40.00 Types: Cigarettes Quit date: 12/04/2010 Smokeless tobacco: Current User Types: Chew Comment: quit smoking and chewing tobacco Alcohol use: No Drug use: No Jovani denies regular aerobic exercise. He watches his diet for sodium, low fat and low cholesterol generally not very much. List of current specialists seen: Sees [place], End [facility] Planning discussed including patients advanced directive wishes: Yes I am willing to follow Jovani's advanced directives. Depression screen He in the past two weeks denies having felt down, depressed, hopeless or with little interest or pleasure in doing things. Functional Ability/Safety Screen 1. Was the patient's timed Up and Go test unsteady or longer than 30 seconds? No 2. Does the patient need help with the phone, transportation, shopping,preparing meals, housework, laundry, medications or managing money? No 3. Does your home have rugs in the hallway, lack of grab bars in the bathroom (Y), lack of handrails on the stairs or have poor lighting? No Hearing Evaluation: normal PHYSICAL EXAM BP 110/82 Pulse 86 Temp 37.5 ?C (99.5 ?F) (Right Tympanic) Resp 12 Wt 93.4 kg (206 lb) BMI 30.42 kg/m? Alert and oriented X 3: YES Body mass index is 30.42 kg/m?. See below ASSESSMENT/PLAN: 67 year old male The following prevention plan was discussed during the office visit and provided to the patient: See below. Gets vision checks with the [place] Herminio Linares Chief Complaint Patient presents with: Establish Care HPI Jovani Holman is a 67 year old male who presents here today for extensive exam and to establishment of care. Patient with hx as reviewed, documented and updated below. Sees [place] for routine health. Has been having SESAY and reduced physical tolerance for about 2 years but has been progressing. Discussed with [place] and had a breathing test and was told it was ok. No heaviness or tightness in chest with this. No jaw discomfort. No palpitations, diaphoresis or nausea. Past medical history, appointments, medications, allergies reviewed. Previous Medical History PAST MEDICAL HISTORY Diagnosis Date - Adenomatous colon polyp 10/25/20132008 - Agent orange exposure 02/21/2016 - Bladder neck obstruction 09/19/2008 - BPH (benign prostatic hypertrophy) 09/19/2008 - Chewing tobacco use 01/11/2018 - Chronic obstructive pulmonary disease (COPD) (HCC) - Coronary artery disease due to lipid rich plaque 01/11/2018 Cath around 2010 was told had one vessel at 30% blocked and maker at 50 %. As to be managed medically. - Diverticulosis of colon (without mention of hemorrhage) - Essential hypertension 09/13/2010 -continue home regimen of atenolol 50, amlodipine 5, HCTZ 25 - Ex-smoker 01/11/2018 Started around age 8 up to 2 PPD and quit 2009 - GERD (gastroesophageal reflux disease) 11/23/2013 - Hemorrhage of rectum and anus 10/23/2008 - Idiopathic urticaria 11/10/2006 - Leg edema 09/16/2010 - Lumbago 09/19/2008 - Lupus erythematosus ? if this was a true Dx. - Mixed hyperlipidemia 09/14/2010 Chol 182 Tri 98 HDL 35 LDL 127 - Mixed simple and mucopurulent chronic bronchitis (HCC) 01/22/2016 - RAYRAY (obstructive sleep apnea) AHI 5.1 per 4% AND OS 10/15/2015 Was not able to tolerate - Other pulmonary embolism and infarction 09/13/2010 -pt had PE and DVT in 2005 after back surgery -an IVC filter was placed then and is still in place Was on coumadin for a time and then quit taking it on his own - Postinflammatory pulmonary fibrosis (HCC) 09/16/2010 - Presence of IVC filter 12/29/2014 - SOLAR LENGINES 06/08/2006 Previous Surgical History PAST SURGICAL HISTORY Procedure Laterality Date - COLONOS W/REM POLYP SNARE 01/06/16 adenomatous polyp - 3 year follow up - COLONOSCOP W/ OR W/O BRSH SPEC 10/23/2008 Colonoscopy, tubular adenoma - KIDNEY SURGERY HX - LEFT HEART CATH,PERCUTANEOUS 09/14/2010 Cardiac cath, L heart - PAST SURGICAL HISTORY OF 1997 partial removal left lung - [facility] - PAST SURGICAL HISTORY OF 3 back surgeries - REMV LENS MATERIAL,PHACOFRAGMT 2009 Cataract Extraction (right and left) Family History FAMILY HISTORY Problem Relation Age of Onset - Diabetes Father - Stroke Father - Stroke Mother - Alzheimer's Disease Mother - Cancer Brother throat ca Patient Allergies ALLERGIES Allergen Reactions - Bactrim [Sulfametho* Other: See Comments sore throat - Levaquin [Levofloxa* GI Upset Current Medications Current Outpatient Prescriptions on File Prior to Visit: doxazosin (CARDURA) 8 mg tablet Take 1 tablet by mouth every evening. atorvastatin (LIPITOR) 10 mg tablet Take 1 tablet by mouth once daily. hydrochlorothiazide (HYDRODIURIL, ESIDRIX) 25 mg tablet Take 1 tablet by mouth once daily. omeprazole (PRILOSEC) 20 mg capsule Take 1 capsule by mouth daily before breakfast. 1/2 hr before meal. No current facility-administered medications on file prior to visit. Social History Social History Marital status: Spouse name: Years of education: Number of children: Social History Main Topics Smoking status: Former Smoker Packs/day: 0.50 Years: 40.00 Types: Cigarettes Quit date: 12/04/2010 Smokeless tobacco: Current User Types: Chew Comment: quit smoking and chewing tobacco Alcohol use: No Drug use: No Review of Symptoms REVIEW OF SYSTEMS NECK: Negative for lumps, goiter, pain and significant neck swelling RESPIRATORY: Negative for cough, hemoptysis, wheezing, COPD. See HPI CARDIOVASCULAR: Negative for chest pain, leg swelling, hypertension, CHF or palpitations GI: No nausea, vomiting, or diarrhea, No heartburn or reflux symptoms and no blood : No history of dysuria or blood NEURO: No history of headaches, syncope, paralysis, seizures or tremors EXAM: BP 110/82 Pulse 86 Temp 37.5 ?C (99.5 ?F) (Right Tympanic) Resp 12 Wt 93.4 kg (206 lb) BMI 30.42 kg/m? Last 6 Encounter Wt Readings: Date: Wt: 01/11/2018 93.4 kg (206 lb) 06/30/2017 89.8 kg (198 lb) 12/17/2016 93.9 kg (207 lb) 09/02/2016 91.7 kg (202 lb 3.2 oz) 08/05/2016 91.2 kg (201 lb) 01/30/2016 93 kg (205 lb) General Appearance: Well appearing, alert, in no acute distress, well-hydrated, well nourished., Overweight. Neck: Supple, no adenopathy; thyroid symmetric, normal size, no bruits. Lungs: Lungs clear to auscultation. No wheezing, rhonchi, rales. Heart: RRR without gallop, or rubs. No ectopy, Positive findings: murmur: 2/6 systolic low pitched soft murmur diffuse . Abdomen: Normal abdominal exam, Abdomen soft, non-tender. Bowel sounds normal. No masses, organomegaly. Extremities: No deformities. Has mild edema in both lower extremities. Peripheral Pulses: Normal. Neurologic: Gait normal. Sensation to light touch and crainal nerves 2-12 grossly intact.. Health Maintenance List DTAP,TDAP,TD(1 - Tdap) due on 1967 HEPATITIS C SCREENING due on 1992 DIABETES SCREEN due on 07/24/2017 COLORECTAL CANCER SCREENING,SEE MODIFIER due on 01/05/2019 LIPID SCREEN due on 07/24/2019 PROSTATE CANCER SCREENING DISCUSSION Completed ABDOMINAL AORTIC ANEURYSM SCREENING TOPIC Completed ADULT PREVNAR-13 Completed PNEUMOVAX AGE 65 AND OVER WITH 5YR LOOKBACK Completed Data reviewed In Office EKG showed PVC's which were new. Left axis deviation. No acute ST or T wave changes when compared to EKG from 09/14/2010 A/P ASSESSMENT/PLAN: 1. Medicare annual wellness visit, subsequent - ICD9: V70.0, ICD10: Z00.00 (primary diagnosis) - Recommended regular aerobic exercise. - Follow up for annual exam in one year. 2. SESAY (dyspnea on exertion) - ICD9: 786.09, ICD10: R06.09 Check - ECG COMPLETE W INTERPRETATION - ECHO - NM CARDIAC PERF STRESS/PHARM - Get copies of PFT's from [place] 3. Decreased activity tolerance - ICD9: 780.99, ICD10: R68.89 Check - ECG COMPLETE W INTERPRETATION - ECHO - NM CARDIAC PERF STRESS/PHARM 4. Coronary artery disease due to lipid rich plaque - ICD9: 414.00, 414.3, ICD10: I25.10, I25.83 Check - ECG COMPLETE W INTERPRETATION - ECHO - NM CARDIAC PERF STRESS/PHARM - Get copies of most recent labs from [place]. 5. Mixed hyperlipidemia - ICD9: 272.2, ICD10: E78.2 - [facility]wait [facility] - Continue current medication. - Encouraged following a low fat, low cholesterol diet. - Discussed the benefits of regular aerobic exercise and weight loss. - Encouraged following a low carbohydrate, healthy oil intake diet. 6. Essential hypertension - ICD9: 401.9, ICD10: I10 - good control - Continue current medication(s) - Recommended regular aerobic exercise. - Recommend home blood pressure monitoring, to bring results in on next visit - Goal of BP <140/90 - ECG COMPLETE W INTERPRETATION 7. Chronic obstructive pulmonary disease, unspecified COPD type (HCC) - ICD9: 496, ICD10: J44.9 - [facility] await [facility] reports. 8. Mixed simple and mucopurulent chronic bronchitis (HCC) - ICD9: 491.1, ICD10: J41.8 - As above 9. Postinflammatory pulmonary fibrosis (HCC) - ICD9: 515, ICD10: J84.10 - As above 10. Gastroesophageal reflux disease without esophagitis - ICD9: 530.81, ICD10: K21.9 - Continue treatment with Prilosec 20 mg QD 11. Chewing tobacco use - ICD9: 305.1, ICD10: Z72.0 - Cessation encouraged. - Counseling was given focusing on the harmful effects of this addiction especially given the patient's medical condition(s) which will be worsened because of the chemicals in tobacco. 12. Heart murmur - ICD9: 785.2, ICD10: R01.1 Check - ECHO 13. PVC's (premature ventricular contractions) - ICD9: 427.69, ICD10: I49.3 check - NM CARDIAC PERF STRESS/PHARM 14. Abnormal finding on EKG - ICD9: 794.31, ICD10: R94.31 Check - NM CARDIAC PERF STRESS/PHARM f/u 6 months routine Time with patient face to face was 40 min for extensive exam and 10 min for medicare wellness. Herminio Linares MD Referring Provider: SELF [[id number]] Allergies As of Date: 01/11/2018 Noted Allergy Reaction BACTRIM (SULFAMETHOXAZOLE-TRIMETH*11/18/2008 14 - Other: See Comments Comments: sore throat LEVAQUIN (LEVOFLOXACIN) 06/10/2005 8 - GI Upset Date Reviewed: 01/11/2018 Reviewed by: Herminio Linares A - Fully Assessed Reason for Visit: Establish Care [42] Primary Visit Diagnosis:Medicare annual wellness visit, subsequent [Z00.00] Comment:last done: 01/11/2018 Other Visit Diagnoses:SESAY (dyspnea on exertion) [R06.09] Decreased activity tolerance [R68.89] Coronary artery disease due to lipid rich plaque [I25.10, I25.83] Mixed hyperlipidemia [E78.2] Essential hypertension [I10] Chronic obstructive pulmonary disease, unspecified COPD type (HCC) [J44.9] Mixed simple and mucopurulent chronic bronchitis (HCC) [J41.8] Postinflammatory pulmonary fibrosis (HCC) [J84.10] Gastroesophageal reflux disease without esophagitis [K21.9] Chewing tobacco use [Z72.0] Heart murmur [R01.1] PVC's (premature ventricular contractions) [I49.3] Abnormal finding on EKG [R94.31] Order(s):ECG COMPLETE W INTERPRETATION [ECG01] Order #: [id number] FUTURE ECHO [[id number]] Order #: [id number]: 1 FUTURE NM CARDIAC PERF STRESS/PHARM [[id number]] Order #: [id number] FUTURE regadenoson (LEXISCAN) 0.4 mg/5 mL syrgInject 5 mL intravenously one time only for 1 dose. Give IV push over 10 seconds and follow with 5 ml of normal salineDisp: 5 mLRfl: 0 IV START - SPECIFY [[id number]] Order #: [id number]: 1 IV DISCONTINUE [[id number]] Order #: [id number]: 1 Prescriptions as of 01/11/2018 Sig: ASPIRIN 81 MG TABLET,DELAYED * Take 81 mg by mouth once effie* OSTEO BI-FLEX ORAL Take by mouth. DOXAZOSIN 8 MG TABLET Take 1 tablet by mouth every * ATORVASTATIN 10 MG TABLET Take 1 tablet by mouth once d* HYDROCHLOROTHIAZIDE 25 MG TAB* Take 1 tablet by mouth once d* OMEPRAZOLE 20 MG CAPSULE,JULIET* Take 1 capsule by mouth daily* REGADENOSON 0.4 MG/5 ML INTRA* Inject 5 mL intravenously one* Problem List As Of Date 01/11/2018 Noted Resolved Tobacco use disorder [F17.200] 08/05/2016 SOLAR LENGINES [L81.9] INVALID FOR* Priority: D Idiopathic urticaria [L50.1] INVALID FOR* Priority: D Lumbago [M54.5] INVALID FOR* Priority: M BPH (benign prostatic hypertrophy) [N40.0] INVALID FOR* Priority: C Bladder neck obstruction [N32.0] INVALID FOR* Priority: C Diverticulosis of colon (without mention of hem*INVALID FOR* Priority: C More... More... Essential hypertension [I10] INVALID FOR* Priority: A More... Tobacco abuse [Z72.0] INVALID FOR*08/05/2016 Priority: D More... Other pulmonary embolism and infarction [I26.99]INVALID FOR* Priority: B More... Mixed hyperlipidemia [E78.2] INVALID FOR* Priority: A More... More... 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 Screening for colon cancer [Z12.11] INVALID FOR* Mixed simple and mucopurulent chronic bronchiti*INVALID FOR* Priority: A Agent orange exposure [Z77.098] INVALID FOR* Priority: B Coronary artery disease due to lipid rich plaqu*INVALID FOR* Priority: A More... Well adult exam [Z00.00] INVALID FOR* Priority: E More... Chronic obstructive pulmonary disease (COPD) (H* Ex-smoker [Z87.891] INVALID FOR* Priority: B More... Chewing tobacco use [Z72.0] INVALID FOR* Priority: B Medicare annual wellness visit, subsequent [Z00*INVALID FOR* Priority: E More... PVC's (premature ventricular contractions) [I49*INVALID FOR* Prescriptions ordered this encounter Disp Refills Start End REGADENOSON 0.4 MG/5 ML INTRAVENOUS * 5 mL 0 01/11/2018 01/11/2018 Class: In Office Route: INTRAVENOUS Sig: Inject 5 mL intravenously one time only for 1 dose. Give IV push over 10 seconds and follow with 5 ml of normal saline Medications Discontinued During This Encounter Mdxebycpvrrkm-PC-[id number] (ADULT * 150 * 0 08/05/2016 01/11/2018 Route: ORAL Sig: Take 5 mL by mouth twice daily as needed. Disc: Discontinued by Patient mupirocin (BACTROBAN) 2 % ointment 1 Tu* 0 12/17/2016 01/11/2018 Route: TOPICAL Sig: Apply 1 application to affected area twice daily. Patient not taking: Reported on 01/11/2018 Disc: Course of therapy completed diphenoxylate-atropine (LOMOTIL) 2.5* 28 t* 0 06/30/2017 01/11/2018 Class: Print RX Route: ORAL Sig: Take 1 tablet by mouth four times daily as needed for Diarrhea. Patient not taking: Reported on 01/11/2018 Disc: Course of therapy completed Disposition: Return in about 6 months (around 07/14/2018) for routine. Follow-up and Disposition History Recorded Encounter Status:Closed by HERMINIO LINARES on 01/11/18 ALLERGIES ALLERGIES DATE TYPE / CODE NAME / CODE REACTION SEVERITY SOURCE 05/05/2018 Drug No Known Unknown Bao Allergy/416 Allergies/[id number] [facility] [id number]([facility](RXRM) [facility] ED CT) Repository 11/18/2008 [id number] SULFAMETHOXAZOLE-TR OTHER: SEE C [facility] 003(SNOMED IMETHOPRIM [place]) Repository 11/18/2008 [id number]/[id number] SULFAMETHOXAZOLE-TR [facility] 003(SNOMED IMETHOPRIM [place]) Repository 06/10/2005 DRUG LEVOFLOXACIN GI UPSET [address] [id number](SNOM Repository ED CT) 06/10/2005 DRUG LEVOFLOXACIN GI UPSET [address] [address](SNOM Repository ED CT) ENCOUNTERS ENCOUNTERS ADMIT/DISCHARGE ACCOUNT ADMITTING ENCOUNTER LOCATION SOURCE NUMBER CLASS 08/17/2018 [id number] [facility] ing:LABSPEC Repository 08/17/2018/08/17/[id number] [place] Repository 08/11/2018/08/11/[id number] [place] Repository 08/10/2018/08/10/[id number] [place] Repository 08/03/2018 [id number] [facility] ing:LABSPEC Repository 08/03/2018/08/03/[id number] [place] Repository 07/26/2018/07/31/[id number] Repository 07/20/2018 [id number] Ambulatory [facility] ing:LABSPEC Repository 07/20/2018/07/20/20 [id number] Ambulatory [address] [place] Repository 07/14/2018/07/17/20 [id number] Ambulatory [address] [place] Repository 07/13/2018/07/13/20 [id number] Ambulatory [address] [place] Repository 07/10/2018/07/24/20 [id number] Ambulatory [address] [place] Repository 07/06/2018 [id number] Ambulatory [facility] Hospital ing:LABSPEC Repository 07/06/2018/07/06/20 [id number] Ambulatory [address] [place] Repository 07/03/2018/07/03/20 [id number] Ambulatory [address] [place] Repository 07/03/2018 [id number] Ambulatory [facility] ing:LABSPEC Repository 06/30/2018/06/30/20 [id number] Ambulatory [address] [place] Repository 06/30/2018 [id number] Ambulatory [facility] ing:LABSPEC Repository 06/29/2018 [id number] Ambulatory [facility] ing:LABSPEC Repository 06/29/2018/06/29/20 [id number] Ambulatory [address] [place] Repository 06/27/2018/06/28/20 [id number] Ambulatory [address] [place] Repository 06/27/2018 [id number] Ambulatory [facility] ing:LABSPEC Repository 06/27/2018/06/27/20 [id number] Ambulatory [address] [place] Repository 06/27/2018/06/27/20 [id number] Ambulatory [address] [place] Repository 06/26/2018 [id number] Ambulatory [facility] ing:LABSPEC Repository 06/26/2018/06/26/20 [id number] Ambulatory [address] [place] Repository 06/21/2018/06/24/20 [id number] FRANSISCO, Inpatient [address] Other (FEL) [place] Repository 06/21/2018/10/18 [id number] Ambulatory [address] Repository 06/19/2018 [id number] Ambulatory [facility] ing:LABSPEC Repository 06/19/2018/06/19/20 [id number] Ambulatory [address] [place] Repository 06/10/2018/06/16/20 [id number] NICK, Inpatient [address] [facility] Other (RES) [place] Repository 06/08/2018/06/12/20 [id number] Ambulatory [address] [place] Repository 06/08/2018/06/08/20 [id number] Ambulatory [address] [place] Repository 06/03/2018/06/03/20 [id number] Ambulatory [address] [place] Repository 05/31/2018/05/31/20 [id number] Ambulatory [address] [place] Repository 05/30/2018/05/30/20 [id number] Ambulatory [address] [place] Repository 05/30/2018/05/31/20 [id number] Ambulatory [address] [place] Repository 05/11/2018/05/12/20 [id number] Ambulatory [address] [place] Repository 05/10/2018/05/11/20 [id number] Ambulatory [address] Repository 05/06/2018/05/07/20 [id number] [facility] ing:PCURoom: Repository RAK444Uhu: 1 05/06/2018 [id number] Danie, Ambulatory [facility]:[place] Repository 05/06/2018 [id number] Danie, Ambulatory BMSBuilding:[place] Repository 05/06/2018/05/07/20 [id number] Ambulatory BMSBuilding:Jie [facility] Repository 05/05/2018 [id number] Danie, Ambulatory BMSBuilding:[place] Repository 05/05/2018/05/09/20 [id number] Ambulatory [address] Repository 05/03/2018 [id number] Emergency [facility] Pooja g:H.ED Repository 01/16/2018 [id number] Ambulatory [facility] Other [place] Repository 01/16/2018 [id number] Ambulatory [facility] Repository 01/13/2018/01/14/20 [id number] Ambulatory [address] Repository 01/12/2018/01/12/20 [id number] Ambulatory [address] Repository 01/11/2018/01/13/20 [id number] Ambulatory [address] Repository PAYERS PAYERS ENCOUNTER GUARANTOR PAYER SUBSCRIBER SOURCE 08/17/2018 JOVANI HOLMAN2195 Primary JOVANI MARTELB: [place] Insurance:MEDICARE [id number] Medical Center [address]Ypa: (330) Number: Repository [phone] () [id number] Date:2018-08-17 08/17/2018 Secondary JOVANI MARTELB: [place] Insurance:Revver [id number] [facility] Hospital Number: Repository [id number] Date:2018-08-17[address] [address]XA: 08/17/2018 Tertiary NOT GIVENUNK [place] Insurance:SELF PAY [place] Number: Effective Repository Date:2018-08-17 08/03/2018 JOVANI Ornelas [id number] Primary JOVANI HOLMANDOB: [place] TAY Insurance:MEDICARE [id number] Medical Center [id number]: (330) Number: Repository [phone] () [id number] Date:2018-08-03 08/03/2018 Secondary JOVANI HOLMANDOB: [place] Insurance:[employer] [id number] [facility] Hospital Number: Repository [id number] Date:2018-08-03[address], [place] [address]OQ: 08/03/2018 Tertiary NOT GIVENUNK [place] Insurance:SELF PAY [facility] Number: Effective Repository Date:2018-08-03 07/20/2018 JOVANI HOLMAN2195 Primary JOVANI E HOUGHDOB: [place] TAY Insurance:MEDICARE [id number] Medical Center [address]Vuc: (330) Number: Repository [phone] () [id number] Date:2018-07-20 07/20/2018 Secondary JOVANI E HOUGHDOB: [place] [facility] [id number] [facility] Hospital Number: Repository [id number] Date:2018-07-20[address] [address]TT: 07/20/2018 Tertiary NOT GIVENUNK [place] Insurance:SELF PAY [facility] Number: Effective Repository Date:2018-07-20 07/06/2018 JOVANI HOLMAN2195 Primary JOVANI E ANDERSUGHDOB: [place] Insurance:MEDICARE [id number] Medical Center [address]Dmo: (330) Number: Repository [phone] () [id number] Date:2018-07-06 07/06/2018 Secondary JOVANI E HOUGHDOB: [place] Insurance:[facility] [id number] [facility] Hospital Number: Repository [id number] Date:2018-07-06[address], [place] [address]WL: 07/06/2018 Tertiary NOT GIVENUNK [place] Insurance:SELF PAY [facility] Number: Effective Repository Date:2018-07-06 07/03/2018 JOVANI HOLMAN2195 Primary JOVANI E HOUGHDOB: [place] Insurance:MEDICARE [id number] Medical Center [id number]: (330) Number: Repository [phone] () [id number] Date:2018-07-03 07/03/2018 Secondary JOVANI E HOUGHDOB: [place] Insurance:BANKERS [id number] [facility] Number: Repository [id number] Date:2018-07-03[address], [place] [address]QY: 07/03/2018 Tertiary NOT GIVENUNK [place] Insurance:SELF PAY [facility] Number: Effective Repository Date:2018-07-03 06/30/2018 JOVANI HOLMAN2195 Primary JOVANI E HOUGHDOB: [place] TAY Insurance:MEDICARE [id number] Medical Center [address]Yzn: (330) Number: Repository [phone] () [id number] Date:2018-06-30 06/30/2018 Secondary JOVANI E HOUGHDOB: [place] Insurance:[facility] [id number] [facility] Hospitaly Hospital Number: Repository [id number] Date:2018-06-30[address], [place] [address]IY: 06/30/2018 Tertiary NOT GIVENUNK [place] Insurance:SELF PAY [facility] Number: Effective Repository Date:2018-06-30 06/29/2018 JOVANI HOLMAN2195 Primary JOVANI E HOUGHDOB: [place] Insurance:MEDICARE [id number] Medical Center [address]Hbs: (330) Number: Repository [phone] () [id number] Date:2018-06-29 06/29/2018 Secondary JOVANI E HOUGHDOB: [place] Insurance:BANKERS [id number] Western Carolina Hospitaly Hospital Number: Repository [id number] Date:2018-06-29[address] [address]GW: 06/29/2018 Tertiary NOT GIVENUNK [place] Insurance:SELF PAY [facility] Number: Effective Repository Date:2018-06-29 06/27/2018 JOVANI HOLMAN2195 Primary JOVANI E HOUGHDOB: [place] Insurance:MEDICARE [id number] PART A [facility] [address]Ptn: (330) Number: Repository [phone] () [id number] Date:2018-06-27 06/27/2018 Secondary JOVANI E HOUGHDOB: [place] Insurance:BANKERS [id number] Langone Health [facility] Number: Repository [id number] Date:2018-06-27[address], [place] [address]ED: 06/27/2018 Tertiary NOT GIVENUNK [place] Insurance:SELF PAY [facility] Number: Effective Repository Date:2018-06-27 06/26/2018 JOVANI E [id number] Primary JOVANI E HOUGHDOB: [place] TAY Insurance:MEDICARE [id number][facility] A [facility] [address]Yzh: (330) Number: Repository [phone] () [id number] Date:2018-06-26 06/26/2018 Secondary JOVANI E HOUGHDOB: [place] Insurance:[facility] [id number] Western Carolina Hospitaly Hospital Number: Repository [id number] Date:2018-06-26[address], [place] [address]CK: 06/26/2018 Tertiary NOT GIVENUNK [place] Insurance:SELF PAY [facility] Number: Effective Repository Date:2018-06-26 06/19/2018 JOVANI E [id number] Primary JOVANI E HOUGHDOB: [place] Insurance:MEDICARE [id number], [place] PART A [facility] [address]Ybx: (330) Number: Repository [phone] () [id number] Date:2018-06-19 06/19/2018 Secondary JOVANI E HOUGHDOB: [place] [facility] [id number] Western Carolina Hospitaly Hospital Number: Repository [id number] Date:2018-06-19[address] [address]JD: 06/19/2018 Tertiary NOT GIVENUNK [place] Insurance:SELF PAY [facility] Number: Effective Repository Date:2018-06-19 05/06/2018 Jovani E [id number] Primary Jovani E HoughDOB: [place] Insurance:MEDICARE [id number] Valley Regional Medical [facility] [address]Ope: (330) Number: Repository [phone] () [id number] Date:2018-05-05 05/06/2018 Secondary Jovani E HoughDOB: [place] Insurance:BANKERS [id number] [facility] Hospital Number: Repository [id number] Date:2018-05-[address] [address]OG: 05/06/2018 Tertiary NOT GIVENUNK [place] Insurance:SELF PAY [facility] Number: Effective Repository Date:2018-05-05 05/06/2018 Jovani E [id number] Primary Jovani E HoughDOB: [place] Insurance:MEDICARE [id number] Valley Regional Medical Center [address]Aom: (330) Number: Repository [phone] () [id number] Date:2018-05-05 05/06/2018 Secondary Jovani E HoughDOB: [place] Insurance:[facility] [id number] [facility] Hospital Number: Repository [id number] Date:2018-05-[address], [place] [address]RJ: 05/06/2018 Tertiary NOT GIVENUNK [place] Insurance:SELF PAY [facility] Number: Effective Repository Date:2018-05-06 05/06/2018 Jovani E [id number] Primary Jovani E HoughDOB: [place] Insurance:MEDICARE [id number] Valley Regional Medical Center [address]Noo: (330) Number: Repository [phone] () [id number] Date:2018-05-05 05/06/2018 Secondary Jovani E HoughDOB: [place] Insurance:[facility] [id number] [facility] Hospital Number: Repository [id number] Date:2018-05-[address] [address]UK: 05/06/2018 Tertiary NOT GIVENUNK [place] Insurance:SELF PAY [facility] Number: Effective Repository Date:2018-05-06 05/06/2018 Jovani E [id number] Primary Jovani E HoughDOB: [place] Insurance:MEDICARE [id number] Valley Regional Medical Center [address]Gcu: (330) Number: Repository [phone] () [id number] Date:2018-05-05 05/06/2018 Secondary Jovani E HoughDOB: [place] Insurance:[facility] [id number] [facility] Hospital Number: Repository [id number] Date:2018-05-[address] [address]JO: 05/06/2018 Tertiary NOT GIVENUNK [place] Insurance:SELF PAY [facility] Number: Effective Repository Date:2018-05-06 05/05/2018 Jovani E [id number] Primary Jovani E HoughDOB: [place] Insurance:MEDICARE [id number] Valley Regional Medical Center [address]Bls: (330) Number: Repository [phone] () [id number] Date:2018-05-05 05/05/2018 Secondary Jvoani E HoughDOB: [place] Insurance:[facility] [id number] [facility] Hospital Number: Repository [id number] Date:2018-05-[address], [place] [address]UU: 05/05/2018 Tertiary NOT GIVENUNK [place] Insurance:SELF PAY [facility] Number: Effective Repository Date:2018-05-05 05/03/2018 JOVANI Ornelas [id number] Primary JOVANI [facility] ARMSRTONG Insurance:[facility]AREPol [place] Number: Repository [id number]: [phone]) [id number] [phone] (HP) Date:[address] CODE [id number], [place] [address]XH: 05/03/2018 Secondary JOVANI Alonso Medical Insurance:[facility] LIFE & CASUALTYPolicy Repository Number: [id number] Date:[address] [address]SP:
== END ==
PROVIDERS: Referring Provider Family Medicine; Visit Provider Family Medicine
DX: I82.220 Acute embolism and thrombosis of inferior vena cava (principal); Z79.01 Long term (current) use of anticoagulants
CPT/HCPCS: 85610

== ENCOUNTER → 2018-08-17 10:54 | Outpatient (CLI) | payer MEDICARE, OTHER, SELFPAY ==
[2018-08-17 11:22] LABS: International Normalized Ratio 1.9; Prothrombin Time (Protime)PT. 21.5 SECONDS (11.7-14.9)
--- OUTSIDE RECORDS SUMMARY | 2018-10-03 06:12 | XMS RPT_ITS ---
:1950 Author Organization OHIP Support Name Relationship Address Phone ASHLEY HOLMAN Unavailable [address] + [place] [address] R Unavailable Unavailable Unavailable TOPOVSKI, CATHERINE Unavailable [address] + [place] [address] ASHLEY HOLMAN Unavailable [address] + [place] [address] R Unavailable Unavailable Unavailable TOPOVSKI, CATHERINE Unavailable [address] + [place] [address] ASHLEY HOLMAN Unavailable [address] + [place] [address] R Unavailable Unavailable Unavailable TOPOVSKI, CATHERINE Unavailable [address] + [place] [address] ASHLEY HOLMAN Unavailable [address] + [place] [address] R Unavailable Unavailable Unavailable TOPOVSKI, CATHERINE Unavailable [address] + [place] [address] ASHLEY HOLMAN Unavailable [address] + [place] [address] R Unavailable Unavailable Unavailable TOPOVSKI, CATHERINE Unavailable [address] + [place] [address] ASHLEY HOLMAN Unavailable [address] + [place] [address] R Unavailable Unavailable Unavailable TOPOVSKI, CATHERINE Unavailable [address] + [place] [address] ASHLEY HOLMAN Unavailable [address] + [place] [address] R Unavailable Unavailable Unavailable TOPOVSKI, CATHERINE Unavailable [address] + [place] [address] RIVERIRAM KEARNEYA Unavailable [address] + [place] [address] R Unavailable Unavailable Unavailable TOPOVSKI, CATHERINE Unavailable [address] + [place] [address] RIVERIRAM KEARNEYA Unavailable [address] + [place] [address] R Unavailable Unavailable Unavailable TOPOVSKI, CATHERINE Unavailable [address] + [place] [address] RIVERIRAM KEARNEYA Unavailable [address] + [place] [address] R Unavailable Unavailable Unavailable TOPOVSCARITO, CATHERINE Unavailable [address] + [place] [address] RIVERIRAM KEARNEYA Unavailable [address] + [place] [address] R Unavailable Unavailable Unavailable TOPOVSKI, CATHERINE Unavailable [address] + [place] [address] RIVERIRAM KEARNEYA Unavailable [address] + [place] [address] R Unavailable Unavailable Unavailable TOPOVSCARITO, CATHERINE Unavailable [address] + [place] [address] RIVERIRAM KEARNEYA Unavailable [address] + [place] [address] R Unavailable Unavailable Unavailable TOPOVSKI, CATHERINE Unavailable [address] + [place] [address] RIVERIRAM KEARNEYA Unavailable [address] + [place] [address] R Unavailable Unavailable Unavailable TOPOVSKI, CATHERINE Unavailable [address] + [place] [address] RIVERIRAM KEARNEYA Unavailable [address] + [place] [address] R Unavailable Unavailable Unavailable TOPOVSKI, CATHERINE Unavailable [address] + [place] [address] ASHLEY HOLMAN Unavailable Unavailable + Care Team Providers Name Role Phone Vijay, Herminio Primary Care Unavailable Marilous, Gabriel F Admitting Unavailable Kristi, Nancy Monika Attending Unavailable Eder Steen D.O. Consulting Unavailable Elmeronis, Gabriel F Admitting Unavailable Vijay, Herminio Primary Care Unavailable Mick Heltonolas F Consulting Unavailable Carmen Heltons F Attending Unavailable Koram, Nancy Monika Attending Unavailable Kotsonis, Gabriel F Admitting Unavailable Vijay, Herminio Primary Care Unavailable Eder Steen D.O. Consulting Unavailable Koram, Nancy Monika Consulting Unavailable Kokaileeonis, Gabriel F Admitting Unavailable Vijay, Herminio Primary Care Unavailable Koram, Nancy Monika Consulting Unavailable Koram, Nancy Monika Attending Unavailable Murphy Pritchard Attending Unavailable VijayFelixHerminio Attending Unavailable Vijay, Herminio Referring Unavailable Vijay, [...] Referring Unavailable Vijay, Herminio Primary Care Unavailable VijayFelixHerminio Attending Unavailable Vijay, Herminio Referring Unavailable Vijay, [...] [place] Consulting Unavailable EWELINA RICHARDS Attending Unavailable VIJAY HERMINIO A Referring Unavailable VIJAY, HERMINIO A Attending Unavailable VIJAY, HERMINIO A Referring Unavailable VIJAY, HERMINIO A Referring Unavailable SHELLY HOLLAND (BOXING INSTRUCTOR) Attending Unavailable VIJAY, HERMINIO A Attending Unavailable KEVIN ROBERTS Attending Unavailable VIJAY, HERMINIO A Referring Unavailable ZARIA CULP (PA) Attending Unavailable ZARIA CULP (PA) Referring Unavailable ZARIA CULP (PA) Referring Unavailable ROBBI ZARIA (PA) Referring Unavailable ZARIA CULP (PA) Referring Unavailable ZARIA CULP (PA) Referring Unavailable ZARIA CULP (PA) Referring Unavailable JAYMIE MONAE (BOXING INSTRUCTOR) Attending Unavailable WANDA ZAVALETA Referring Unavailable VIJAY, HERMINIO A Referring Unavailable BRADLEY BARNETT () Referring Unavailable VIJAY, HERMINIO A Referring Unavailable ZARIA CULP (PA) Attending Unavailable VIJAY, HERMINIO A Referring Unavailable VIJAY, HERMINIO A Referring Unavailable VIJAY, HERMINIO A Referring Unavailable VIJAY, HERMINIO A Referring Unavailable KUSUM VALENTINE Attending Unavailable VIJAY, HERMINIO A Referring Unavailable KUSUM VALENTINE Referring Unavailable VIJAY, HERMINIO A Attending Unavailable VIJAY, HERMINIO A Referring Unavailable VINICIO ROONEY Attending Unavailable VIJAY, HERMINIO A Referring Unavailable EWELINA RICHARDS Referring Unavailable VIJAY, HERMINIO A Referring Unavailable VIJAY, HERMINIO A Referring Unavailable VIJAY, HERMINIO A Referring Unavailable VIJAY, HERMINIO A Attending Unavailable VIJAY, HERMINIO A Referring Unavailable VIJAY, HERMINIO A Referring Unavailable VIJAY, HERMINIO A Referring Unavailable PRASHANT GARCIA Attending Unavailable VIJAY, HERMINIO A Referring Unavailable BRADLEY BARNETT () Referring Unavailable Lizzy Ceja Primary Care Unavailable PROBLEMS PROBLEMS DATE TYPE CONDITION / CODE ATTENDING STATUS SOURCE Active Other fatigue / NA Active [facility] R53.83(ICD-10) Clinic Main [place] Repository Active Unspecified right NA Active [facility] bundle-branch block / Clinic Main I45.10(ICD-10) [place] Repository Active Atherosclerotic heart NA Active [place] [address] disease of [place] [facility] Main coronary artery [place] without angina Repository pectoris / I25.10(ICD-10) Active Coronary NA Active [facility] atherosclerosis due to Clinic Main lipid rich plaque / [place] I25.83(ICD-10) Repository Active Encounter for other NA Active [facility] preprocedural Clinic Main examination / [place] Z01.818(ICD-10) Repository Unknown I82.220 - Acute Vijay Active [facility] embolism and [facility] thrombosis of inferior Hospital vena cava / Repository I82.220(ICD-10) Unknown Z79.01 - meterman Vijay, Active [place] (current) use of [facility] anticoagulants / Hospital Z79.01(ICD-10) Repository Active Thoracic aortic JOSE, EWELINA Active [facility] ectasia / A Clinic Other I77.810(ICD-10) [place] Repository Active Mixed hyperlipidemia / JOSE, EWELINA Active [facility] E78.2(ICD-10) A Clinic Other [place] Repository Active Chronic obstructive JOSE, EWELINA Active [facility] pulmonary disease, A Clinic Other unspecified / [place] J44.9(ICD-10) Repository Active Essential (primary) JOSE, EWELINA Active [facility] hypertension / A Clinic Other I10(ICD-10) [place] Repository Active Ventricular premature JOSE, EWELINA Active [facility] depolarization / A Clinic Other I49.3(ICD-10) [place] Repository Active Presence of other JOSE, EWELINA Active [facility] vascular implants and A Clinic Other grafts / [place] Z95.828(ICD-10) Repository Active Obstructive sleep JOSE, EWELINA Active [facility] apnea (adult) A Clinic Other (pediatric) / [place] G47.33(ICD-10) Repository Active Other pulmonary JOSE, EWELINA Active [facility] embolism without acute A Clinic Other cor pulmonale / [place] I26.99(ICD-10) Repository Active Dyspnea, unspecified / JOSE, EWELINA Active [facility] R06.00(ICD-10) A Clinic Other [place] Repository Active Anemia, unspecified / NA Active [facility] D64.9(ICD-10) Clinic Main [place] Repository Active Disorder of kidney and NA Active [facility] ureter, unspecified / Clinic Main N28.9(ICD-10) [place] Repository Active Personal history of NA Active [facility] other venous Clinic Main thrombosis and [place] embolism / Repository Z86.718(ICD-10) Active Acute embolism and NA Active [facility] thrombosis of inferior Clinic Main vena cava / [place] I82.220(ICD-10) Repository Active Acute embolism and NA Active [facility] thrombosis of Clinic Main unspecified deep veins [place] of proximal lower Repository extremity, bilateral / I82.4Y3(ICD-10) Unknown I82.4Y3 - Acute Vijay Active [facility] embolism and [facility] thrombosis of Hospital unspecified deep veins Repository of proximal lower extremity, bilateral / I82.4Y3(ICD-10) Active [place] (current) KAILASAM, [facility] 8 use of anticoagulants [facility] Other / Z79.01(ICD-10) [place] Repository Active Encounter for KAILASAM, [facility] 8 therapeutic drug level [facility] Other monitoring / [place] Z51.81(ICD-10) Repository Active Right lower quadrant KAILASAM, Active [facility] pain / R10.31(ICD-10) [facility] Other [place] Repository Active Other ascites / NA Active [facility] R18.8(ICD-10) Clinic Main [place] Repository Active Unknown / UNK(Unknown) NA Active [facility] 8 Clinic Main [place] Repository Active Other specified NA Active [facility] abnormal findings of Clinic Main blood chemistry / [place] R79.89(ICD-10) Repository Active Abdominal distension NA Active [facility] (gaseous) / Clinic Main R14.0(ICD-10) [place] Repository Active Pelvic and perineal NA Active [facility] pain / R10.2(ICD-10) Clinic Main [place] Repository Active Other microscopic NA Active [facility] hematuria / Clinic Main R31.29(ICD-10) [place] Repository Unknown S39.012A - Strain of Koram, Nancy Active [facility] muscle, fascia and [facility] tendon of lower back, Hospital initial encounter / Repository S39.012A(ICD-10) Admitting Unknown / UNK(Unknown) NA Active [place] [address] diagnosis [facility] [place] Repository Active Other forms of dyspnea NA Active [facility] / R06.09(ICD-10) Clinic Other [place] Repository Active Other general symptoms NA Active [facility] and signs / Clinic Other R68.89(ICD-10) [place] Repository Active Abnormal NA Active [facility] 8 electrocardiogram Clinic Other (ECG) (EKG) / [place] R94.31(ICD-10) Repository Active Cardiac murmur, NA Active [place] [address] unspecified / Clinic Main R01.1(ICD-10) [place] Repository PROCEDURES PROCEDURES No Procedure Records FoundRESULTS RESULTS PROGRESS Observed: 09/21/2018 Status: COMPLETED Source: [place] 3:33 PM [facility] REPOSITORY HNO ID: [id number] Author: Elizabeth Howard Ma Service: (none) Author Type: (none) Type: Progress Notes Filed: 09/21/2018 3:36 PM Note Text: Patient daughter notified and verbalized understanding Coumadin clinic is closed on 10/11 so patient is testing on 10/10. Tracker updated Elizabeth Howard Ma PROGRESS Observed: 09/21/2018 Status: COMPLETED Source: [place] 12:[address] [facility] REPOSITORY HNO ID: [id number] Author: Herminio Linares Service: (none) Author Type: Physician Type: Progress Notes Filed: 09/21/2018 3:36 PM Note Text: This note was created using LoyalBlocks[employer]. Subjective Jovani Holman is a 68 year old male. Review of Systems Objective There were no vitals taken for this visit. Physical Exam Assessment and Plan Have patient go to taking 5 mg of coumadin on and 2.5 mg all other days. Patient will be going onto Lovenox next week and should restart this same dosing when he goes back onto coumadin on 10/07/2018 and will need INR 10/11/2018 PROGRESS Observed: 09/21/2018 Status: COMPLETED Source: [place] 12:[address] [facility] REPOSITORY HNO ID: [id number] Author: Nevin Lucero RN Service: (none) Author Type: (none) Type: Progress Notes Filed: 09/21/2018 12:04 PM Note Text: patient had inr completed at [facility] patients inr is 1.9 (patients inr range is 2.0-3.0) patient is currently taking 2.5mg daily patients last dose change was on 09/13/18 due to discussion at appt (previous level of 2.0 and dose was 2mg Mon,Wed, and 2.5mg all other days) patient has had no changes in medication except for coumadin and no missed doses and no change in diet FYI - patient will be stopping coumadin on 09/26/18 for procedure and will be bridging with lovenox. patient will be restarting coumadin on 10/07/18 and has been scheduled for inr follow up on Tuesday10/10/18 Advised patient that they would be contacted regarding medication dose and when to follow up after information is reviewed by provider. After provider review please contact the patient with information and schedule follow up appointment with coumadin clinic. PROGRESS Observed: 09/19/2018 Status: COMPLETED Source: [place] 8:08 AM [facility] REPOSITORY HNO ID: [id number] Author: Prashant Pierre Rai Service: (none) Author Type: Physician Type: Progress Notes Filed: 09/19/2018 4:07 PM Note Text: [facility] OFFICE VISIT CONSULT 09/19/2018 Patient Name: Jovani Holman PRIMARY CARE PHYSICIAN: Herminio Linares MD REASON FOR CONSULT: Shortness of breath REFERRING PHYSICIAN: Herminio Linares MD My final recommendations will be communicated to the requesting health care provider by way of the shared medical record for internal providers or by letter via US mail for external providers. CHIEF COMPLAINT: Shortness of breath HISTORY OF PRESENT ILLNESS: Jovani Holman is a 68 year old male, former 23-tnli-lzzt smoker quit in 2009, chewed tobacco for a long time until 2018 Ht 172.7 cm (5' 8) BMI 32.93 kg/m2. Patient used to follow up with Dr. Yogesh Lugo for interstitial lung disease - [facility] 10/27/2010. He has a PMH significant for ILD - post inflammatory pulmonary fibrosis for which she underwent open lung biopsy ROBERTH ([facility] - inflammatory nodule) and bronchoscopy with transbronchial biopsies 10/13/2010 (TBBx Rt lung - nonspecific chronic inflammatory changes with some features of respiratory bronchiolitis) - all immunologic studies were unremarkable. PFTs showed normal spirometry with significantly reduced DLCO at 32% predicted (09/28/2010) - plan for waitfull watching. Other medical history includes acute pulmonary embolism s/p IVC filter placement, acute DVT bilateral lower extremities, GERD, chronic back pain with herniated disc, ? Lupus erythematosus (positive skin biopsy but negative lab work), obstructive sleep apnea?unable to tolerate CPAP, abdominal and pelvic VTE disease, calcified granulomas, CAD, BPH, hyperlipidemia and hypertension. Patient is presenting for preoperative evaluation for urological surgery - left scrotal exploration and spermatocelectomy. Patient states that he only has shortness of breath with physical activity. He has developed bilateral lower extremity edema due to DVTs. He denies any wheezing, chest pain, cough, fever, chills or night sweats. He never gets an influenza vaccine during flu season. He has not used CPAP since 2016, although sleep study noted nocturnal hypoxemia). He is already scheduled for a cardiac stress test as part of his preoperative workup. 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 Previously noted ground glass and reticular densities bilateral lungs have improved. Current CT scan shows some subpleural reticular changes along the posterior lateral chest wall and lingula and left lower lobe. There is some focal increased opacification in this area of unclear etiology. PFTs done 09/15/2018 shows normal spirometry and diffusion capacity. MMRC Dyspnea Scale: 0. Not troubled by breathlessness except on strenuous exercise 1. Short of breath when hurrying or walking up a slight hill 2. Walks slower than contemporaries on the level because of breathlessness, or has to stop for breath when walking at own pace 3. Stops for breath after about 100 m or after a few minutes on the level 4. Too breathless to leave the house, or breathless when dressing or undressing Environmental/ Occupational Exposure History: Pets: No birds Asbestos: No significant exposure Silica: No significant exposure Sharp: No significant exposure Mold: No significant exposure Hot tub: No significant exposure Fumes: No significant exposure Metal dust: (+) significant exposure Beryllium: No significant exposure Dust: No significant exposure Medications: No relevant exposure for interstitial lung diseases PAST MEDICAL HISTORY Diagnosis Date - Acute deep vein thrombosis (DVT) of proximal vein of both lower extremities (HCC) 05/12/2018 - Adenomatous colon polyp 10/25/20132008 - Agent orange exposure 02/21/2016 - Bladder neck obstruction 09/19/2008 - BPH (benign prostatic hypertrophy) 09/19/2008 - Chewing tobacco use 01/11/2018 - Chronic obstructive pulmonary disease (COPD) ([facility]) - Coronary artery disease due to lipid rich plaque 01/11/2018 Cath around 2010 was told had one vessel at 30% blocked and maker at 50 %. As to be managed medically. - Diverticulosis of colon (without mention of hemorrhage) - Ectatic thoracic aorta (HCC) 08/10/2018 - Embolism of inferior vena cava ([facility]) 06/10/2018 - Essential hypertension 09/13/2010 -continue home regimen of atenolol 50, amlodipine 5, HCTZ 25 - Ex-smoker 01/11/2018 Started around age 8 up to 2 PPD and quit 2009 - Ex-user of chewing tobacco 01/11/2018 - GERD (gastroesophageal reflux disease) 11/23/2013 - Hemorrhage of rectum and anus 10/23/2008 - Herniation of intervertebral disc between L4 and L5 05/10/2018 - Idiopathic urticaria 11/10/2006 - Incomplete RBBB 09/13/2018 Present on EKG from 2010 - Leg edema 09/16/2010 - Lumbago 09/19/2008 [...] Topics - Smoking status: Former Smoker Packs/day: 1.50 Years: 50.00 Types: Cigarettes Start date: 09/05/1961 Quit date: 09/05/2009 - Smokeless tobacco: Former User Types: Chew Quit date: 05/06/2018 Comment: quit smoking and chewing tobacco - Alcohol use No ALLERGIES ALLERGIES Allergen Reactions - Bactrim [Sulfametho* Other: See Comments sore throat - Levaquin [Levofloxa* GI Upset CURRENT OUTPATIENT MEDICATIONS Cholecalciferol, Vitamin D3, (VITAMIN D-3) 2,000 unit cap Take 1 capsule by mouth. carvedilol (COREG) 6.25 mg tablet Take 1 tablet by mouth twice daily. warfarin (COUMADIN) 2 mg tablet Take 1 [...] daily before breakfast. 1/2 hr before meal. enoxaparin (LOVENOX) 40 mg/0.4 mL syrg Inject 0.4 mL subcutaneously every 24 hours. REVIEW OF SYSTEMS: 09/19/2018 8:08 AM Constitutional: (-) Fever (-) Night Sweats (-) Weight Gain (-) Weight Loss (-) Fatigue Cardiovascular: (-) Chest Pain (-) Palpitations (-) Lightheadedness (+) Swelling of Ankles Respiratory: (-) Hemoptysis (+) Shortness of Breath (-) Cough (-) Wheezing (-) Snoring Gastrointestinal: (-) Abdominal Pain (-) Diarrhea (-) Constipation (-) Nausea/Vomiting (-) Heart Burn Neurologic: (-) Headache (-) Double Vision (-) Confusion (-) Paralysis (-) Vertigo (-) Syncope Hematologic: (-) Prolonged Bleeding (-) Easy Bruising Psychiatric: (-) Depression (-) Anxiety Skin: (-) Rashes (-) Itching (-) Other Lesions Endocrine: (-) Thyroid Disorder (-) Diabetes Review of systems completed by Jessica Liao MA. Reviewed by Prashant Pierre Rai, MD. The remainder of review of systems was negative. PHYSICAL EXAM BP 153/92 Pulse 65 Ht 5' 8 (1.73m) Wt 216 lb 9.6 oz (98.2kg) SpO2 95% BMI 32.94 kg/(m2). General appearance: Well appearing, alert, in no acute distress, well-hydrated, well nourished. Nose/Sinuses: Nares normal. Septum midline. Mucosa normal. No drainage or sinus tenderness. Oropharynx: Lips, mucosa, and tongue normal, teeth and gums normal, oropharynx normal Lungs: Lungs clear to auscultation. No wheezing, rhonchi, rales Heart: RRR without murmur, gallop, or rubs. No ectopy Abdomen: Abdomen soft, non-tender. Extremities: Normal, Warm and No cyanosis, no clubbing. Bilateral lower extremity edema. Peripheral pulses: Normal Neuro: Oriented X 3 DATA Diagnostic tests reviewed for today's visit, including films and specimens, personally reviewed by me: Most recent labs and imaging results. 08/18/2004 16:28 09/16/2004 17:25 12/19/2006 12:29 09/16/2010 15:47 JHONATAN by EIA 0.5 0.3 DNA Antibody <12 CYBER INCIDENT ANALYST Antibody Negative Ribosomal CYBER INCIDENT ANALYST Negative SSB Antibody Negative Anti-Sm Negative Sm Antibody Negative SSA Antibody Negative Scleroderma Ab, IgG Negative Dionne 1 Antibody Negative Histone Negative Centromere Ab Negative Rheumatoid Factor 4 <7 c-ANCA Fluorescence Negative p-ANCA Fluorescence Negative Proteinase-3 Antibody 3 Myeloperoxidase Antibody (MPO) 3 Staff Review (ANCA) Reviewed by Elpidio... C4 24 C3 94 Complement Def Assay 126 Rapid Strep, [place] Negative Aspergillus fumigatus 1 None Detected... RPR Non Reactive Aspergillus fumigatus 6 None Detected... Aureobasidium pullulans None Detected... [place] Serum None Detected... Micropolyspora faeni None Detected... Thermoactinomyces vulgaris 1 None Detected... 10/13/2010 15:05 12/10/2014 10:07 Color, [place] Lavage Colorless... Supernatant Color, [place] Lavage Colorless Supernatant Clarity, [place] Lavage Clear Clarity, [place] Lavage Slightly turbid RBC, [place] Lavage 0 Total Nucleated Cells, BAL 89 Neut%, [place] Lavage 6 (H) Lymph%, [place] Lavage 33 (H) Macro%, [place] Lavage 55 Eosin%, [place] Lavage 2 (H) Resp EPI Cls% 4 Slide Number [place] Lavage [id number] BAL Comment Rare bacteria pre... BAL Review Reviewed by:... PFT: 09/15/18: [facility] ? [address] ? [place] [address] ? PFT Lab Report Name: JOVANI HOLMAN ? ID: [id number] ? Date: 09/15/18 ?Physician: [id number] HINTON ? Age: 68 ? Height(in): 69.0 ? Weight(lb): 216 ? Gender: Male ?Race: ? Diagnosis: ?Medication Set 1: ? Dyspnea Rest: No ?Dyspnea Exercise: No ? Cough: No ? Persistent: No ?Productive (cc): ? Smoker: No ?How Long: ? Stopped: ?Cigarettes: No ? Hatch Supervisor: Heaven Mendoza, COMPRESSOR MECHANIC ?Temp: ?21 ?PBar: 747 ?PF Reference: ######## Spirometry ?Hb: ?gm/dL ?Ref ? Pre ? Pre ? Post ?Post ?Post ?Mark ?% Ref ? ? ? Mark ?% Ref ? ? ? % Chg FVC ?Liters ? ? ?4.24 ?3.77 ?89 FEV1 ? ? ? Liters ? ? ?3.12 ?2.75 ?88 FEV1/FVC ? % ? 74 ?73 GIR11-45% ?L/sec ? ? ? 2.37 ?1.86 ?78 [id number] L/sec ? ? ?2.61 ?1.86 ?71 PEF ?L/sec ? ? ? 8.11 ?9.20 ?113 GGP733% ? ?Sec ? 8.12 MVV ?L/min ? ? ? 125 f ?BPM ? Lung Volumes TLC ?Liters ? ? ?6.80 VC ? Liters ? ? ?4.24 IC ? Liters ? ? ?2.87 FRC N2 ? ? Liters ? ? ?3.60 ERV ?Liters ? ? ?1.44 RV ? Liters ? ? ?2.39 RV/TLC ? ? % ? 36 ? Diffusing Capacity DLCO ? ? ? mL/mmHg/min 25.7 ?18.2 ?71 DL Adj ? ? mL/mmHg/min 25.7 ?18.2 ?71 DLCO/VA ? ?mL/mHg/min/L 3.99 ? ? ? 3.34 ?84 DL/VA Adj ?mL/mHg/min/L 3.99 ? ? ? 3.34 ?84 VA ? Liters ? ? ?6.44 ?5.46 ?85 IVC ?Liters ?3.69 ?98 BHT ?Sec ? 10.53 ? Resistance Raw ?cmH2O/L/sec 1.40 sGaw ? ? ? L/s/cmH2O/L 0.218 ? Respiratory Muscle Force PI max ? ? cmH2O ? ? ? 105 PE max ? ? cmH2O ? ? ? 196 ? null PFT: 09/28/2010: IMPRESSION: 1. ?This is technically adequate study. ?The results are reproducible. 2. ?The configuration of flow volume loop is nondiagnostic. 3. ?The spirometry is within normal range without clinically significant improvement in spirometry values acutely after bronchodilator therapy. 4. ?Lung volumes measured by nitrogen washout technique are felt to be within normal range. 5. ?Thoracic gas volume measurements done by plethysmography technique are felt to be within normal range. 6. ?Carbon monoxide diffusion capacity is markedly reduced at 32% of predicted. 7. ?No previous study available for comparison. Polysomnogram: 10/10/15: ICSD DIAGNOSIS: Obstructive Sleep Apnea Syndrome [G47.33] IMPRESSION/RECOMMENDATIONS: 1. Mild obstructive sleep apnea, exacerbated to the moderate degree during REM sleep. However, the total apnea-hypopnea index (AHI) was likely significantly underestimated due to absent recorded supine sleep and the presence of mild flow and effort decrements associated with arousal and/or oxygen desaturation not meeting established CMS respiratory event criteria. Respiratory events were associated with significant oxygen desaturations (charlie of 77%) on room air. 2. Abnormal sleep architecture likely due to respiratory events, medications, and first night effect. ECHO: 01/13/18: CONCLUSIONS: - Technically difficult exam due to body habitus. - Exam indication: Thoracic ascending aneurysm - The left ventricle is normal in size. There is mild concentric left ventricular hypertrophy. Left ventricular systolic function is normal. EF = 64 ? 5% (2D biplane) Grade I left ventricular diastolic dysfunction. - The right ventricle is normal in size. Right ventricular systolic function is normal. - The left atrial cavity is mildly dilated. - Mild AV sclerosis - Mildly dilated ascending aorta measuring 4.3 cm - Exam was compared with the prior echocardiographic exam performed on 09/15/2010. Ascending Ao segment measured at 3.9 cm on prior study. CT Scan Chest: 06/10/18: IMPRESSION: 1. ?No CT evidence of pulmonary embolism. 2. ?Subpleural reticular changes with more focal adjacent increased density since previous study. ?This is seen along the posterior lateral chest wall in the lingula and LEFT lower lobe-etiology uncertain. ?May relate to interstitial lung disease and scarring. CT Scan Chest: 12/31/15: IMPRESSION: 1. ?Postoperative changes in the left upper lobe likely from wedge resection. 2. ?Sequela of remote granulomatous disease. 3. ?Ectatic ascending aorta. 4. ?Atherosclerosis. Pathology: 08/06/04: FINAL DIAGNOSIS A. SKIN, LEFT CHEEK, PUNCH BIOPSY - FAVOR CHRONIC LUPUS ERYTHEMATOSUS (SEE COMMENT). B. SKIN, LEFT NOSE, PUNCH BIOPSY - FAVOR LUPUS ERYTHEMATOSUS (SEE COMMENT). 10/13/10: FINAL DIAGNOSIS Right lung, transbronchial biopsy ?Nonspecific chronic inflammatory changes. Comment: There are some features of a respiratory bronchiolitis and, perhaps, scattered lymphocytes within the interstitium. ?The findings are minimal and nonspecific. Cytopathology: 10/13/10: SPECIMEN SUBMITTED A: LUNG, WASHING B: BRONCHIAL, BRUSHING FINAL DIAGNOSIS A. LUNG, WASHING Negative for malignant cells. B. BRONCHIAL, BRUSHING Negative for malignant cells. ASSESSMENT/PLAN: 1. Encounter for pre-operative respiratory clearance - ICD9: V72.82, ICD10: Z01.811 (primary diagnosis) 68-year-old male, former smoker with past medical history of ILD s/p OLBx and TBBx - nonspecific chronic inflammatory changes with some features of respiratory bronchiolitis presenting for preoperative clearance for urological procedure Occupational exposure to metal dust Patient's CT scan chest findings have improved dramatically since 2010 with some residual subpleural reticulation's especially left lung Recent PFTs from 09/15/2018 showed normal spirometry and DLCO Patient is saturating well at room air He has history of acute pulmonary embolism in past s/p IVC filter and is currently on warfarin therapy Mild obstructive sleep apnea associated with nocturnal hypoxemia which is not treated with CPAP as advised Patient has low risk of respiratory complications from planned surgical procedure Patient should receive nebulized short-acting bronchodilators as indicated perioperatively Patient should receive NIPPV perioperatively given his history of untreated obstructive sleep apnea Supplemental oxygen to keep SPO2 more than 93% Aggressive bronchopulmonary hygiene including incentive spirometry post procedure 2. Postinflammatory pulmonary fibrosis (HCC) - ICD9: 515, ICD10: J84.10 Significant radiological improvement from CT scan chest [address] chest from June 2018 - bilateral groundglass opacities and fibrotic changes have significantly improved with some residual soap pleural reticulation's especially left lung Previously markedly reduced DLCO has normalized and patient's spirometry is normal 3. SOB (shortness of breath) - ICD9: 786.05, ICD10: R06.02 Normal spirometry with DLCO History of acute pulmonary embolism in past s/p IVC filter, currently on warfarin therapy CT scan chest PE protocol shows no acute pulmonary embolism 06/21/2018 Scheduled for cardiac stress test per PCP Given normal lung function and improvement CT chest findings, patient's dyspnea is less likely to be secondary to primary pulmonary etiology. 4. Pulmonary embolism without acute cor pulmonale, unspecified chronicity, unspecified pulmonary embolism type (HCC) - ICD9: 415.19, ICD10: I26.99 See above for details. Continue anticoagulation per primary team. 5. Deep vein thrombosis (DVT) of proximal lower extremity, unspecified chronicity, unspecified laterality (HCC) - ICD9: 453.41, ICD10: I82.4Y9 See above for details. Continue anticoagulation per primary team. 6. RAYRAY (obstructive sleep apnea) - ICD9: 327.23, ICD10: G47.33 Mild RAYRAY exacerbated to moderate degree during REM sleep. Associated nocturnal hypoxemia with oxygen desaturations (Jenny of 77%) on RA. Patient unable to use CPAP device. Recommend repeat polysomnogram with CPAP titration - split study in future if desired If patient is not willing to get a repeat sleep study, consider checking nocturnal oximetry 7. History of tobacco use - ICD9: V15.82, ICD10: Z87.891 I discussed the plan in detail with the patient and his daughter and the patient verbalizes understanding and is in agreement. Return if symptoms worsen or fail to improve. Verbal and/or written health teaching given to patient with > 60 minutes spent face to face with more than half of this for disease counseling. Prashant Pierre Rai, MD, [facility] Staff, Pulmonary and Critical Care Medicine [facility] Pager #[phone] CC: MD Vijay Romero Jeffrey A, MD CNOV Observed: 09/19/2018 Status: COMPLETED Source: [place] 8:00 AM [facility] RE[facility]IT[facility] Office Visit ([facility]) JOVANI HOLMAN ([id number]) 1950 M Date Time Provider Department 09/19/18 8:00 AM PRASHANT GARCIA [facility] During your visit today, we recorded the following information about you: Pulse Blood pressure Weight Height 65/minute 153/92 98.2 kg 1.727 m Prashant Pierre Rai, MD 09/19/2018 4:07 PM Signed [facility] DEPARTMENT OF PULMONARY MEDICINE OFFICE VISIT CONSULT 09/19/2018 Patient Name: Jovani Holman PRIMARY CARE PHYSICIAN: Herminio Linares MD REASON FOR CONSULT: Shortness of breath REFERRING PHYSICIAN: Herminio Linares MD My final recommendations will be communicated to the requesting health care provider by way of the shared medical record for internal providers or by letter via US mail for external providers. CHIEF COMPLAINT: Shortness of breath HISTORY OF PRESENT ILLNESS: Jovani Holman is a 68 year old male, former [id number] smoker quit in 2009, chewed tobacco for a long time until 2018 Ht 172.7 cm (5' 8) BMI 32.93 kg/m2. Patient used to follow up with Dr. Yogesh Lugo for interstitial lung disease - JERONIMO 10/27/2010. He has a PMH significant for ILD - post inflammatory pulmonary fibrosis for which she underwent open lung biopsy ROBERTH (OSH - inflammatory nodule) and bronchoscopy with transbronchial biopsies 10/13/2010 (TBBx Rt lung - nonspecific chronic inflammatory changes with some features of respiratory bronchiolitis) - all immunologic studies were unremarkable. PFTs showed normal spirometry with significantly reduced DLCO at 32% predicted (09/28/2010) - plan for waitfull watching. Other medical history includes acute pulmonary embolism s/p IVC filter placement, acute DVT bilateral lower extremities, GERD, chronic back pain with herniated disc, ? Lupus erythematosus (positive skin biopsy but negative lab work), obstructive sleep apnea?unable to tolerate CPAP, abdominal and pelvic VTE disease, calcified granulomas, CAD, BPH, hyperlipidemia and hypertension. Patient is presenting for preoperative evaluation for urological surgery - left scrotal exploration and spermatocelectomy. Patient states that he only has shortness of breath with physical activity. He has developed bilateral lower extremity edema due to DVTs. He denies any wheezing, chest pain, cough, fever, chills or night sweats. He never gets an influenza vaccine during flu season. He has not used CPAP since 2016, although sleep study noted nocturnal hypoxemia). He is already scheduled for a cardiac stress test as part of his preoperative workup. 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 Previously noted ground glass and reticular densities bilateral lungs have improved. Current CT scan shows some subpleural reticular changes along the posterior lateral chest wall and lingula and left lower lobe. There is some focal increased opacification in this area of unclear etiology. PFTs done 09/15/2018 shows normal spirometry and diffusion capacity. MMRC Dyspnea Scale: 0. Not troubled by breathlessness except on strenuous exercise 1. Short of breath when hurrying or walking up a slight hill 2. Walks slower than contemporaries on the level because of breathlessness, or has to stop for breath when walking at own pace 3. Stops for breath after about 100 m or after a few minutes on the level 4. Too breathless to leave the house, or breathless when dressing or undressing Environmental/ Occupational Exposure History: Pets: No birds Asbestos: No significant exposure Silica: No significant exposure Sharp: No significant exposure Mold: No significant exposure Hot tub: No significant exposure Fumes: No significant exposure Metal dust: (+) significant exposure Beryllium: No significant exposure Dust: No significant exposure Medications: No relevant exposure for interstitial lung diseases PAST MEDICAL HISTORY Diagnosis Date - Acute deep vein thrombosis (DVT) of proximal vein of both lower extremities (HCC) 05/12/2018 - Adenomatous colon polyp 10/25/20132008 - Agent orange exposure 02/21/2016 - Bladder neck obstruction 09/19/2008 - BPH (benign prostatic hypertrophy) 09/19/2008 - Chewing tobacco use 01/11/2018 - Chronic obstructive pulmonary disease (COPD) ([facility]) - Coronary artery disease due to lipid rich plaque 01/11/2018 Cath around 2010 was told had one vessel at 30% blocked and maker at 50 %. As to be managed medically. - Diverticulosis of colon (without mention of hemorrhage) - Ectatic thoracic aorta (HCC) 08/10/2018 - Embolism of inferior vena cava ([facility]) 06/10/2018 - Essential hypertension 09/13/2010 -continue home regimen of atenolol 50, amlodipine 5, HCTZ 25 - Ex-smoker 01/11/2018 Started around age 8 up to 2 PPD and quit 2009 - Ex-user of chewing tobacco 01/11/2018 - GERD (gastroesophageal reflux disease) 11/23/2013 - Hemorrhage of rectum and anus 10/23/2008 - Herniation of intervertebral disc between L4 and L5 05/10/2018 - Idiopathic urticaria 11/10/2006 - Incomplete RBBB 09/13/2018 Present on EKG from 2010 - Leg edema 09/16/2010 - Lumbago 09/19/2008 [...] Topics - Smoking status: Former Smoker Packs/day: 1.50 Years: 50.00 Types: Cigarettes Start date: 09/05/1959 Quit date: 09/05/2009 - Smokeless tobacco: Former User Types: Chew Quit date: 05/06/2018 Comment: quit smoking and chewing tobacco - Alcohol use No ALLERGIES ALLERGIES Allergen Reactions - Bactrim [Sulfametho* Other: See Comments sore throat - Levaquin [Levofloxa* GI Upset CURRENT OUTPATIENT MEDICATIONS Cholecalciferol, Vitamin D3, (VITAMIN D-3) 2,000 unit cap Take 1 capsule by mouth. carvedilol (COREG) 6.25 mg tablet Take 1 tablet by mouth twice daily. warfarin (COUMADIN) 2 mg tablet Take 1 [...] daily before breakfast. 1/2 hr before meal. enoxaparin (LOVENOX) 40 mg/0.4 mL syrg Inject 0.4 mL subcutaneously every 24 hours. REVIEW OF SYSTEMS: 09/19/2018 8:08 AM Constitutional: (-) Fever (-) Night Sweats (-) Weight Gain (-) Weight Loss (-) Fatigue Cardiovascular: (-) Chest Pain (-) Palpitations (-) Lightheadedness (+) Swelling of Ankles Respiratory: (-) Hemoptysis (+) Shortness of Breath (-) Cough (-) Wheezing (-) Snoring Gastrointestinal: (-) Abdominal Pain (-) Diarrhea (-) Constipation (-) Nausea/Vomiting (-) Heart Burn Neurologic: (-) Headache (-) Double Vision (-) Confusion (-) Paralysis (-) Vertigo (-) Syncope Hematologic: (-) Prolonged Bleeding (-) Easy Bruising Psychiatric: (-) Depression (-) Anxiety Skin: (-) Rashes (-) Itching (-) Other Lesions Endocrine: (-) Thyroid Disorder (-) Diabetes Review of systems completed by Jessica Liao MA. Reviewed by Prashant Pierre Rai, MD. The remainder of review of systems was negative. PHYSICAL EXAM BP 153/92 Pulse 65 Ht 5' 8 (1.73m) Wt 216 lb 9.6 oz (98.2kg) SpO2 95% BMI 32.94 kg/(m2). General appearance: Well appearing, alert, in no acute distress, well-hydrated, well nourished. Nose/Sinuses: Nares normal. Septum midline. Mucosa normal. No drainage or sinus tenderness. Oropharynx: Lips, mucosa, and tongue normal, teeth and gums normal, oropharynx normal Lungs: Lungs clear to auscultation. No wheezing, rhonchi, rales Heart: RRR without murmur, gallop, or rubs. No ectopy Abdomen: Abdomen soft, non-tender. Extremities: Normal, Warm and No cyanosis, no clubbing. Bilateral lower extremity edema. Peripheral pulses: Normal Neuro: Oriented X 3 DATA Diagnostic tests reviewed for today's visit, including films and specimens, personally reviewed by me: Most recent labs and imaging results. 08/18/2004 16:28 09/16/2004 17:25 12/19/2006 12:29 09/16/2010 15:47 JHONATAN by EIA 0.5 0.3 DNA Antibody <12 CYBER INCIDENT ANALYST Antibody Negative Ribosomal CYBER INCIDENT ANALYST Negative SSB Antibody Negative Anti-Sm Negative Sm Antibody Negative SSA Antibody Negative Scleroderma Ab, IgG Negative Dionne 1 Antibody Negative Histone Negative Centromere Ab Negative Rheumatoid Factor 4 <7 c-ANCA Fluorescence Negative p-ANCA Fluorescence Negative Proteinase-3 Antibody 3 Myeloperoxidase Antibody (MPO) 3 Staff Review (ANCA) Reviewed by Elpidio... C4 24 C3 94 Complement Def Assay 126 Rapid Strep, [place] Negative Aspergillus fumigatus 1 None Detected... RPR Non Reactive Aspergillus fumigatus 6 None Detected... Aureobasidium pullulans None Detected... [place] Serum None Detected... Micropolyspora faeni None Detected... Thermoactinomyces vulgaris 1 None Detected... 10/13/2010 15:05 12/10/2014 10:07 Color, BA Lavage Colorless... Supernatant Color, BA Lavage Colorless Supernatant Clarity, BA Lavage Clear Clarity, BA Lavage Slightly turbid RBC, BA Lavage 0 Total Nucleated Cells, BAL 89 Neut%, BA Lavage 6 (H) Lymph%, BA Lavage 33 (H) Macro%, BA Lavage 55 Eosin%, BA Lavage 2 (H) Resp EPI Cls% 4 Slide Number BA Lavage [id number] BAL Comment Rare bacteria pre... BAL Review Reviewed by:... PFT: 09/15/18: [facility] ? [address] ? [place] [address] ? PFT Lab Report Name: JOVANI HOLMAN ? ID: [id number] ? Date: 09/15/18 ?Physician: [id number] HINTON ? Age: 68 ? Height(in): 69.0 ? Weight(lb): 216 ? Gender: Male ?Race: ? Diagnosis: ?Medication Set 1: ? Dyspnea Rest: No ?Dyspnea Exercise: No ? Cough: No ? Persistent: No ?Productive (cc): ? Smoker: No ?How Long: ? Stopped: ?Cigarettes: No ? Hatch Supervisor: Heaven Menodza, COMPRESSOR MECHANIC ?Temp: ?21 ?PBar: 747 ?PF Reference: ######## Spirometry ?Hb: ?gm/dL ?Ref ? Pre ? Pre ? Post ?Post ?Post ?Mark ?% Ref ? ? ? Mark ?% Ref ? ? ? % Chg FVC ?Liters ? ? ?4.24 ?3.77 ?89 FEV1 ? ? ? Liters ? ? ?3.12 ?2.75 ?88 FEV1/FVC ? % ? 74 ?73 AWV42-39% ?L/sec ? ? ? 2.37 ?1.86 ?78 [id number] L/sec ? ? ?2.61 ?1.86 ?71 PEF ?L/sec ? ? ? 8.11 ?9.20 ?113 NDI102% ? ?Sec ? 8.12 MVV ?L/min ? ? ? 125 f ?BPM ? Lung Volumes TLC ?Liters ? ? ?6.80 VC ? Liters ? ? ?4.24 IC ? Liters ? ? ?2.87 FRC N2 ? ? Liters ? ? ?3.60 ERV ?Liters ? ? ?1.44 RV ? Liters ? ? ?2.39 RV/TLC ? ? % ? 36 ? Diffusing Capacity DLCO ? ? ? mL/mmHg/min 25.7 ?18.2 ?71 DL Adj ? ? mL/mmHg/min 25.7 ?18.2 ?71 DLCO/VA ? ?mL/mHg/min/L 3.99 ? ? ? 3.34 ?84 DL/VA Adj ?mL/mHg/min/L 3.99 ? ? ? 3.34 ?84 VA ? Liters ? ? ?6.44 ?5.46 ?85 IVC ?Liters ?3.69 ?98 BHT ?Sec ? 10.53 ? Resistance Raw ?cmH2O/L/sec 1.40 sGaw ? ? ? L/s/cmH2O/L 0.218 ? Respiratory Muscle Force PI max ? ? cmH2O ? ? ? 105 PE max ? ? cmH2O ? ? ? 196 ? null PFT: 09/28/2010: IMPRESSION: 1. ?This is technically adequate study. ?The results are reproducible. 2. ?The configuration of flow volume loop is nondiagnostic. 3. ?The spirometry is within normal range without clinically significant improvement in spirometry values acutely after bronchodilator therapy. 4. ?Lung volumes measured by nitrogen washout technique are felt to be within normal range. 5. ?Thoracic gas volume measurements done by plethysmography technique are felt to be within normal range. 6. ?Carbon monoxide diffusion capacity is markedly reduced at 32% of predicted. 7. ?No previous study available for comparison. Polysomnogram: 10/10/15: ICSD DIAGNOSIS: Obstructive Sleep Apnea Syndrome [G47.33] IMPRESSION/RECOMMENDATIONS: 1. Mild obstructive sleep apnea, exacerbated to the moderate degree during REM sleep. However, the total apnea-hypopnea index (AHI) was likely significantly underestimated due to absent recorded supine sleep and the presence of mild flow and effort decrements associated with arousal and/or oxygen desaturation not meeting established CMS respiratory event criteria. Respiratory events were associated with significant oxygen desaturations (charlie of 77%) on room air. 2. Abnormal sleep architecture likely due to respiratory events, medications, and first night effect. ECHO: 01/13/18: CONCLUSIONS: - Technically difficult exam due to body habitus. - Exam indication: Thoracic ascending aneurysm - The left ventricle is normal in size. There is mild concentric left ventricular hypertrophy. Left ventricular systolic function is normal. EF = 64 ? 5% (2D biplane) Grade I left ventricular diastolic dysfunction. - The right ventricle is normal in size. Right ventricular systolic function is normal. - The left atrial cavity is mildly dilated. - Mild AV sclerosis - Mildly dilated ascending aorta measuring 4.3 cm - Exam was compared with the prior echocardiographic exam performed on 09/15/2010. Ascending Ao segment measured at 3.9 cm on prior study. CT Scan Chest: 06/10/18: IMPRESSION: 1. ?No CT evidence of pulmonary embolism. 2. ?Subpleural reticular changes with more focal adjacent increased density since previous study. ?This is seen along the posterior lateral chest wall in the lingula and LEFT lower lobe-etiology uncertain. ?May relate to interstitial lung disease and scarring. CT Scan Chest: 12/31/15: IMPRESSION: 1. ?Postoperative changes in the left upper lobe likely from wedge resection. 2. ?Sequela of remote granulomatous disease. 3. ?Ectatic ascending aorta. 4. ?Atherosclerosis. Pathology: 08/06/04: FINAL DIAGNOSIS A. SKIN, LEFT CHEEK, PUNCH BIOPSY - FAVOR CHRONIC LUPUS ERYTHEMATOSUS (SEE COMMENT). B. SKIN, LEFT NOSE, PUNCH BIOPSY - FAVOR LUPUS ERYTHEMATOSUS (SEE COMMENT). 10/13/10: FINAL DIAGNOSIS Right lung, transbronchial biopsy ?Nonspecific chronic inflammatory changes. Comment: There are some features of a respiratory bronchiolitis and, perhaps, scattered lymphocytes within the interstitium. ?The findings are minimal and nonspecific. Cytopathology: 10/13/10: SPECIMEN SUBMITTED A: LUNG, WASHING B: BRONCHIAL, BRUSHING FINAL DIAGNOSIS A. LUNG, WASHING Negative for malignant cells. B. BRONCHIAL, BRUSHING Negative for malignant cells. ASSESSMENT/PLAN: 1. Encounter for pre-operative respiratory clearance - ICD9: V72.82, ICD10: Z01.811 (primary diagnosis) 68-year-old male, former smoker with past medical history of ILD s/p OLBx and TBBx - nonspecific chronic inflammatory changes with some features of respiratory bronchiolitis presenting for preoperative clearance for urological procedure Occupational exposure to metal dust Patient's CT scan chest findings have improved dramatically since 2010 with some residual subpleural reticulation's especially left lung Recent PFTs from 09/15/2018 showed normal spirometry and DLCO Patient is saturating well at room air He has history of acute pulmonary embolism in past s/p IVC filter and is currently on warfarin therapy Mild obstructive sleep apnea associated with nocturnal hypoxemia which is not treated with CPAP as advised Patient has low risk of respiratory complications from planned surgical procedure Patient should receive nebulized short-acting bronchodilators as indicated perioperatively Patient should receive NIPPV perioperatively given his history of untreated obstructive sleep apnea Supplemental oxygen to keep SPO2 more than 93% Aggressive bronchopulmonary hygiene including incentive spirometry post procedure 2. Postinflammatory pulmonary fibrosis (HCC) - ICD9: 515, ICD10: J84.10 Significant radiological improvement from CT scan chest [address] chest from June 2018 - bilateral groundglass opacities and fibrotic changes have significantly improved with some residual soap pleural reticulation's especially left lung Previously markedly reduced DLCO has normalized and patient's spirometry is normal 3. SOB (shortness of breath) - ICD9: 786.05, ICD10: R06.02 Normal spirometry with DLCO History of acute pulmonary embolism in past s/p IVC filter, currently on warfarin therapy CT scan chest PE protocol shows no acute pulmonary embolism 06/21/2018 Scheduled for cardiac stress test per PCP Given normal lung function and improvement CT chest findings, patient's dyspnea is less likely to be secondary to primary pulmonary etiology. 4. Pulmonary embolism without acute cor pulmonale, unspecified chronicity, unspecified pulmonary embolism type (HCC) - ICD9: 415.19, ICD10: I26.99 See above for details. Continue anticoagulation per primary team. 5. Deep vein thrombosis (DVT) of proximal lower extremity, unspecified chronicity, unspecified laterality (HCC) - ICD9: 453.41, ICD10: I82.4Y9 See above for details. Continue anticoagulation per primary team. 6. RAYRAY (obstructive sleep apnea) - ICD9: 327.23, ICD10: G47.33 Mild RAYRAY exacerbated to moderate degree during REM sleep. Associated nocturnal hypoxemia with oxygen desaturations (Jenny of 77%) on RA. Patient unable to use CPAP device. Recommend repeat polysomnogram with CPAP titration - split study in future if desired If patient is not willing to get a repeat sleep study, consider checking nocturnal oximetry 7. History of tobacco use - ICD9: V15.82, ICD10: Z87.891 I discussed the plan in detail with the patient and his daughter and the patient verbalizes understanding and is in agreement. Return if symptoms worsen or fail to improve. Verbal and/or written health teaching given to patient with > 60 minutes spent face to face with more than half of this for disease counseling. Prashant Pierre Rai, MD, [facility] Staff, Pulmonary and Critical Care Medicine [facility] [place] Pager #[phone] CC: MD Vijay Romero Jeffrey A, MD Hardeep Singh Rai, MD 09/19/2018 9:25 AM Addendum Recommend a repeat sleep study and CPAP titration (discuss with primary care physician) Recommend a nocturnal oximetry test if a sleep study test is not completed Cardiac stress test as scheduled per primary care physician Referring Provider: HERMINIO LINARES [[id number]] Allergies As of Date: 09/19/2018 Noted Allergy Reaction BACTRIM (SULFAMETHOXAZOLE-TRIMETH*11/18/2008 14 - Other: See Comments Comments: sore throat LEVAQUIN (LEVOFLOXACIN) 06/10/2005 8 - GI Upset Date Reviewed: 09/19/2018 Reviewed by: Prashant Pierre Rai - Fully Assessed Reason for Visit: Consult [173] Cmt: pre op Primary Visit Diagnosis:Encounter for pre-operative respiratory clearance [Z01.811] Other Visit Diagnoses:Postinflammatory pulmonary fibrosis (HCC) [J84.10] SOB (shortness of breath) [R06.02] Pulmonary embolism without acute cor pulmonale, unspecified chronicity, unspecified pulmonary embolism type (HCC) [I26.99] Deep vein thrombosis (DVT) of proximal lower extremity, unspecified chronicity, unspecified laterality (HCC) [I82.4Y9] RAYRAY (obstructive sleep apnea) [G47.33] History of tobacco use [Z87.891] Prescriptions as of 09/19/2018 Sig: CHOLECALCIFEROL (VITAMIN D3) * Take 1 capsule by mouth. CARVEDILOL 6.25 MG TABLET Take 1 tablet by mouth twice * WARFARIN 2 MG TABLET Take 1 tablet [...] CAPSULE,JULIET* Take 1 capsule by mouth daily* ENOXAPARIN 40 MG/0.4 ML SUBCU* Inject 0.4 mL subcutaneously * Patient not taking: Reported on 09/19/2018 Problem List As Of Date 09/19/2018 Noted Resolved Tobacco use disorder [F17.200] 08/05/2016 SOLAR LENGINES [L81.9] INVALID FOR* Idiopathic urticaria [L50.1] INVALID [...] Ectatic thoracic aorta (HCC) [I77.810] INVALID FOR* Scrotal pain [N50.82] INVALID FOR* More... Incomplete RBBB [I45.10] INVALID FOR* More... Spermatocele [N43.40] INVALID FOR* Ex-smoker [Z87.891] INVALID FOR* More... Chewing tobacco use [Z72.0] INVALID FOR* Other instructions from your clinician: Recommend a repeat sleep study and CPAP titration (discuss with primary care physician) Recommend a nocturnal oximetry test if a sleep study test is not completed Cardiac stress test as scheduled per primary care physician Disposition: Return if symptoms worsen or fail to improve. Follow-up and Disposition History Recorded Encounter Status:Closed by PRASHANT GARCIA MD on 09/19/18 OBSOLETE Observed: 09/15/2018 Status: COMPLETED Source: [place] 10:30 AM [facility] REPOSITORY Procedure (PULMWS) JOVANI HOLMAN ([id number]) 1950 M Date Time Provider Department 09/15/18 10:30 AM RESPIRATORY THERAPIST [facility]STRPULM[facility] During your visit today, we recorded the following information about you: Referring Provider: HERMINIO LINARES [[id number]] Allergies As of Date: 09/15/2018 Noted Allergy Reaction BACTRIM (SULFAMETHOXAZOLE-TRIMETH*11/18/2008 14 - Other: See Comments Comments: sore throat LEVAQUIN (LEVOFLOXACIN) 06/10/2005 8 - GI Upset Date Reviewed: 09/15/2018 Reviewed by: Heaven Carr) Bruna Mendoza - Fully Assessed Visit Diagnoses:Chronic obstructive pulmonary disease, unspecified COPD type (HCC) [J44.9] SESAY (dyspnea on exertion) [R06.09] Decreased stamina [R53.83] Order(s):LUNG DIFFUSION CAPACITY (DLCO) [2788000] Order #: [id number]. 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 Incomplete RBBB [I45.10] INVALID FOR* More... Spermatocele [N43.40] INVALID FOR* Ex-smoker [Z87.891] INVALID FOR* More... Chewing tobacco use [Z72.0] INVALID FOR* Encounter Status:Closed by HEAVEN MENDOZA RRT on 09/15/18 OBSOLETE Observed: 09/15/2018 Status: COMPLETED Source: [place] 10:00 AM [facility] Procedure (PULMWS) JOVANI HOLMAN ([id number]) 1950 M Date Time Provider Department 09/15/18 10:00 AM RESPIRATORY THERAPIST [facility]UL[facility] During your visit today, we recorded the following information about you: Pulse Respiration Weight Height 68/minute 14/minute 98 kg 1.753 m Referring Provider: HERMINIO LINARES [[id number]] Allergies As of Date: 09/15/2018 Noted Allergy Reaction BACTRIM (SULFAMETHOXAZOLE-TRIMETH*11/18/2008 14 - Other: See Comments Comments: sore throat LEVAQUIN (LEVOFLOXACIN) 06/10/2005 8 - GI Upset Date Reviewed: 09/15/2018 Reviewed by: Heaven (Bruna) Bruna Mendoza - Fully Assessed Reason for Visit: Spirometry [191] Visit Diagnoses:Chronic obstructive pulmonary disease, unspecified COPD type (HCC) [J44.9] SESAY (dyspnea on exertion) [R06.09] Decreased stamina [R53.83] Order(s):SPIROMETRY WITH DILATOR IF OBSTRUCTED [8903661] Order #: [id number]. #:[id number] Prescriptions as of 09/15/2018 Sig: ENOXAPARIN 40 MG/0.4 ML SUBCU* Inject 0.4 mL subcutaneously * CARVEDILOL 6.25 MG TABLET Take 1 tablet by mouth twice * WARFARIN 2 MG TABLET Take 1 tablet [...] mouth daily* Problem List As Of Date 09/15/2018 Noted Resolved Tobacco use disorder [F17.200] 08/05/2016 SOLAR LENGINES [L81.9] INVALID FOR* Idiopathic urticaria [L50.1] INVALID [...] Ectatic thoracic aorta (HCC) [I77.810] INVALID FOR* Scrotal pain [N50.82] INVALID FOR* More... Incomplete RBBB [I45.10] INVALID FOR* More... Spermatocele [N43.40] INVALID FOR* Ex-smoker [Z87.891] INVALID FOR* More... Chewing tobacco use [Z72.0] INVALID FOR* Encounter Status:Closed by HEAVEN MENDOZA RRT on 09/15/18 PROGRESS Observed: 09/13/2018 Status: COMPLETED Source: [place] 1:[address] [facility] REPOSIT[facility] HNO ID: [id number] Author: Deborah Farooq Ma Service: (none) Author Type: (none) Type: Progress Notes Filed: 09/14/2018 5:05 PM Note Text: Patient seen in office today by PCP for pre op clearance. Per Vijay, increase to 2.5 mg daily and recheck 09/21/18. Will need lovenox bridging prior to and after surgery till back to being therapeutic on INR. Will have him stop the coumadin 7 days prior (09/26/2018) to surgery and start lovenox 40 mg SQ once a day till morning of surgery. Patient to restart the next day and then on Oct 07 2018 restart his usual coumadin dosing along with the lovenox and get an INR on 10/11/2018 Patient verbalized understanding. Deborah Farooq Ma PROGRESS Observed: 09/13/2018 Status: COMPLETED Source: [place] 12:[address] [facility] [facility]IT[facility] HNO ID: [id number] Author: Herminio Linares Service: (none) Author Type: Physician Type: Progress Notes Filed: 09/13/2018 11:17 PM Note Text: Chief Complaint Patient presents with: Pre-Op Exam: cyst removal scrotum HPI Jovani Holman is a 68 year old male who presents here today for pre-op clearance.. Patient with an enlarging spermatocele and scheduled to have surgery on 10/03/[address] Vinicio Rooney. patient with Hx of leg DVT and recent PE's. Saw cardio back on 08/10/2019 and placed patient on Coreg 6.25 mg twice a day but patient had not started yet due to side affect concerns. At that time felt he was ok cardiac [place] and no risk for surgery. Patient has hx of COPD, CAD, HTN, Hyperlipidemia. Patient continues to have swelling in the right leg. Tried wearing a support sock and made swelling worse. Still with pain in the leg. Continues to have SESAY and reduced performance tolerance. No chest pain, diaphoresis or palpitations. Past medical history, appointments, medications, allergies reviewed. [...] daily before breakfast. 1/2 hr before meal. carvedilol (COREG) 6.25 mg tablet Take 1 tablet by mouth twice daily. No current facility-administered medications on file prior to visit. Social History Social History Marital status: Spouse name: Years of education: Number of children: 3 Social History Main Topics Smoking status: Former Smoker Packs/day: 0.50 Years: 40.00 Types: Cigarettes Quit date: 12/04/2010 Smokeless tobacco: Current User Types: Chew Comment: quit smoking and chewing tobacco Alcohol use: No Drug use: No Other Topics Concern Blood Transfusions No Caffeine Concern No Hobby Hazards No Sleep Concern No Stress Concern No Weight Concern No Special Diet No Exercise No Review of Symptoms REVIEW OF SYSTEMS GENERAL: No weight loss, malaise or fevers HEENT: Negative for frequent or significant headaches, significant change in vision, significant vision problems, significant ear problems or hearing loss, nasal discharge, or nose bleeds, sore throat, difficulty swallowing, mouth lesions, hoarseness NECK: Negative for lumps, goiter, pain and significant neck swelling RESPIRATORY: Negative for cough, hemoptysis, wheezing. shortness of breath and SESAY with activity only. None at rest. CARDIOVASCULAR: See HPI GI: No nausea, vomiting, or diarrhea and no pains : No history of dysuria, frequency or blood. Nocturia at night 2-3 times. MUSCULOSKELETAL: see HPI SKIN: Negative for lesions, rash, and itching HEMATOLOGY/LYMPHOLOGY: Negative for prolonged bleeding, bruising easily or swollen nodes ENDOCRINE: Negative for cold or heat intolerance, polyuria, polydipsia and goiter NEURO: No history of headaches, syncope, paralysis, seizures or tremors EXAM: BP 136/80 Pulse 84 Resp 16 Wt 98 kg (216 lb) BMI 31.90 kg/m? General Appearance: Well appearing, alert, in no acute distress, well-hydrated, well nourished.. Skin: Skin color, texture, turgor normal, no suspicious rashes or lesions. Head: Normocephalic, no masses, lesions, tenderness or abnormalities. Eyes: Anicteric sclera. Pupils are equally round and reactive to light. Extraocular movements are intact. . Ears: External ears normal, canals clear. Nose/Sinuses: Nares normal, septum midline, mucosa normal, no drainage or sinus tenderness. Oropharynx: Lips, mucosa, and tongue normal, teeth and gums normal, oropharynx normal. Neck: Supple, no adenopathy; thyroid symmetric, normal size, no bruits. Lungs: lungs clear to auscultation. No wheezing, rhonchi, rales. Heart: RRR without murmur, gallop, or rubs. No ectopy. Abdomen: Normal abdominal exam, Abdomen soft, non-tender. Bowel sounds normal. No masses, organomegaly. Extremities: No deformities or skin discoloration. Has 1- 2+ pitting edema on the right lower ext. Musculoskeletal: Spine range of motion normal. Muscular strength intact, No joint swelling, deformity, or tenderness. Peripheral Pulses: Normal. Neurologic: Gait normal. Reflexes normal and symmetric. Sensation to light touch and crainal nerves 2-12 intact.. Health Maintenance List BP CONTROLLED (<130/80) due on 1966 DTAP,TDAP,TD(1 - Tdap) due on 1967 HEPATITIS C SCREENING due on 1992 LDL CHOLESTEROL due on 04/21/2018 STATIN MED ADHERENCE due on 10/06/2018 COLORECTAL CANCER SCREENING,SEE MODIFIER due on 01/05/2019 ANNUAL PCP TEAM CHRONIC DISEASE VISIT due on 07/14/2019 DIABETES SCREEN due on 07/20/2021 LIPID SCREEN due on 04/21/2022 ABDOMINAL AORTIC ANEURYSM SCREENING TOPIC Completed ADULT PREVNAR-13 Completed PNEUMOVAX AGE 65 AND OVER WITH 5YR LOOKBACK Completed Data reviewed In office EKG: showed NSR left atrial enlargement, incomplete RBBB, LVH. Unchanged from EKG 06/2018 and incomplete RBBB present since 2010. ASSESSMENT/PLAN: 1. Pre-op examination - ICD9: V72.84, ICD10: Z01.818 (primary diagnosis) Will await nuclear stress test - CONSULT TO PULMONARY MEDICINE for pulmonary pre-op eval 2. Spermatocele - ICD9: 608.1, ICD10: N43.40 - Scheduled 10/03/2018 if able to clear for surgery 3. Coronary artery disease due to lipid rich plaque - ICD9: 414.00, 414.3, ICD10: I25.10, I25.83 Check - NM CARDIAC PERF STRESS/PHARM 4. Incomplete RBBB - ICD9: 426.4, ICD10: I45.10 Check - NM CARDIAC PERF STRESS/PHARM 5. Essential hypertension - ICD9: 401.9, ICD10: I10 - suboptimal control - Recommended regular aerobic exercise. - Recommend home blood pressure monitoring, to bring results in on next visit - Advised patient to start the Coreg 6.25 mg twice a day. NV BP check in 4 weeks - Goal of BP <130/80 6. Mixed hyperlipidemia - ICD9: 272.2, ICD10: E78.2 - Continue current therapy. 7. Chronic obstructive pulmonary disease, unspecified COPD type (HCC) - ICD9: 496, ICD10: J44.9 - Cont current Tx - CONSULT TO PULMONARY MEDICINE 8. Acute deep vein thrombosis (DVT) of proximal vein of both lower extremities (HCC) - ICD9: 453.41, ICD10: I82.4Y3 - Cont coumadin. Will increase daily dose to 2.5 mg every day. Has INR 09/21/2018 - Will need lovenox bridging prior to and after surgery till back to being therapeutic on INR. Will have him stop the coumadin 7 days prior (09/26/2018) to surgery and start lovenox 40 mg SQ once a day till morning of surgery. Patient to restart the next day and then on Oct 07 2018 restart his usual coumadin dosing along with the lovenox and get an INR on 10/11/2018 9. SESAY (dyspnea on exertion) - ICD9: 786.09, ICD10: R06.09 Check - NM CARDIAC PERF STRESS/PHARM 10. Decreased stamina - ICD9: 780.79, ICD10: R53.83 Check - NM CARDIAC PERF STRESS/PHARM 11. Dyspnea on exertion - ICD9: 786.09, ICD10: R06.09 Check - NM CARDIAC PERF STRESS/PHARM Keep routine f/u 01/2019 Time entering room was 12:30 PM and time leaving room was 1:23 PM (total face to face time was 53 min) Herminio Linares MD ECG COMPLETE W Observed: 09/13/2018 Status: F Source: [place] INTERPRETATION 12:23 PM [facility] REPOS[facility] NAME : JOVANI HOLMAN PID : [id number] : 1950 Gender : Male Race : ORD : [id number] Procedure Date : Sep 13 2018 12:23:45 Edit Date : Sep 18 2018 12:10:45 Diagnosis:NORMAL SINUS RHYTHM POSSIBLE LEFT ATRIAL ENLARGEMENT INCOMPLETE RIGHT BUNDLE BRANCH BLOCK LEFT VENTRICULAR HYPERTROPHY CANNOT EXCLUDE SEPTAL MYOCARDIAL INFARCTION , AGE UNDETERMINED ABNORMAL ECG Confirmed by MD BARAHONA GREGORY () on 09/18/2018 12:10:19 PM Ventricular Rate : 67 BPM Atrial Rate : 67 BPM P-R Interval : 192 ms QRS Duration : 92 ms Q-T Interval : 386 ms QTC Calculation(Bezet) : 407 ms P [place] : 28 degrees R Woodridge : -29 degrees T [place] : -7 degrees Test Reason : Location : 185 : [facility] Overread By : MD BARAHONA GREGORY Edited By : MD BARAHONA GREGORY Referred By : HERMINIO LINARES Acquired by : ELIAZAR MAYES Observed: 09/13/2018 Status: COMPLETED Source: [place] 11:20 AM [facility] REPOS[facility] Office Visit (FAMPWS) JOVANI HOLMAN ([id number]) 1950 M Date Time Provider Department 09/13/18 11:20 AM HERMINIO LINARES During your visit today, we recorded the following information about you: Pulse Respiration Blood pressure Weight 84/minute 16/minute 136/80 98 kg Herminio Linares MD 09/13/2018 11:17 PM Signed Chief Complaint Patient presents with: Pre-Op Exam: cyst removal scrotum HPI Jovani Holman is a 68 year old male who presents here today for pre-op clearance.. Patient with an enlarging spermatocele and scheduled to have surgery on 10/03/[address] Vinicio Rooney. patient with Hx of leg DVT and recent PE's. Saw cardio back on 08/10/2019 and placed patient on Coreg 6.25 mg twice a day but patient had not started yet due to side affect concerns. At that time felt he was ok cardiac [place] and no risk for surgery. Patient has hx of COPD, CAD, HTN, Hyperlipidemia. Patient continues to have swelling in the right leg. Tried wearing a support sock and made swelling worse. Still with pain in the leg. Continues to have SESAY and reduced performance tolerance. No chest pain, diaphoresis or palpitations. Past medical history, appointments, medications, allergies reviewed. [...] daily before breakfast. 1/2 hr before meal. carvedilol (COREG) 6.25 mg tablet Take 1 tablet by mouth twice daily. No current facility-administered medications on file prior to visit. Social History Social History Marital status: Spouse name: Years of education: Number of children: 3 Social History Main Topics Smoking status: Former Smoker Packs/day: 0.50 Years: 40.00 Types: Cigarettes Quit date: 12/04/2010 Smokeless tobacco: Current User Types: Chew Comment: quit smoking and chewing tobacco Alcohol use: No Drug use: No Other Topics Concern Blood Transfusions No Caffeine Concern No Hobby Hazards No Sleep Concern No Stress Concern No Weight Concern No Special Diet No Exercise No Review of Symptoms REVIEW OF SYSTEMS GENERAL: No weight loss, malaise or fevers HEENT: Negative for frequent or significant headaches, significant change in vision, significant vision problems, significant ear problems or hearing loss, nasal discharge, or nose bleeds, sore throat, difficulty swallowing, mouth lesions, hoarseness NECK: Negative for lumps, goiter, pain and significant neck swelling RESPIRATORY: Negative for cough, hemoptysis, wheezing. shortness of breath and SESAY with activity only. None at rest. CARDIOVASCULAR: See HPI GI: No nausea, vomiting, or diarrhea and no pains : No history of dysuria, frequency or blood. Nocturia at night 2-3 times. MUSCULOSKELETAL: see HPI SKIN: Negative for lesions, rash, and itching HEMATOLOGY/LYMPHOLOGY: Negative for prolonged bleeding, bruising easily or swollen nodes ENDOCRINE: Negative for cold or heat intolerance, polyuria, polydipsia and goiter NEURO: No history of headaches, syncope, paralysis, seizures or tremors EXAM: BP 136/80 Pulse 84 Resp 16 Wt 98 kg (216 lb) BMI 31.90 kg/m? General Appearance: Well appearing, alert, in no acute distress, well-hydrated, well nourished.. Skin: Skin color, texture, turgor normal, no suspicious rashes or lesions. Head: Normocephalic, no masses, lesions, tenderness or abnormalities. Eyes: Anicteric sclera. Pupils are equally round and reactive to light. Extraocular movements are intact. . Ears: External ears normal, canals clear. Nose/Sinuses: Nares normal, septum midline, mucosa normal, no drainage or sinus tenderness. Oropharynx: Lips, mucosa, and tongue normal, teeth and gums normal, oropharynx normal. Neck: Supple, no adenopathy; thyroid symmetric, normal size, no bruits. Lungs: lungs clear to auscultation. No wheezing, rhonchi, rales. Heart: RRR without murmur, gallop, or rubs. No ectopy. Abdomen: Normal abdominal exam, Abdomen soft, non-tender. Bowel sounds normal. No masses, organomegaly. Extremities: No deformities or skin discoloration. Has 1- 2+ pitting edema on the right lower ext. Musculoskeletal: Spine range of motion normal. Muscular strength intact, No joint swelling, deformity, or tenderness. Peripheral Pulses: Normal. Neurologic: Gait normal. Reflexes normal and symmetric. Sensation to light touch and crainal nerves 2-12 intact.. Health Maintenance List BP CONTROLLED (<130/80) due on 1966 DTAP,TDAP,TD(1 - Tdap) due on 1967 HEPATITIS C SCREENING due on 1992 LDL CHOLESTEROL due on 04/21/2018 STATIN MED ADHERENCE due on 10/06/2018 COLORECTAL CANCER SCREENING,SEE MODIFIER due on 01/05/2019 ANNUAL PCP TEAM CHRONIC DISEASE VISIT due on 07/14/2019 DIABETES SCREEN due on 07/20/2021 LIPID SCREEN due on 04/21/2022 ABDOMINAL AORTIC ANEURYSM SCREENING TOPIC Completed ADULT PREVNAR-13 Completed PNEUMOVAX AGE 65 AND OVER WITH 5YR LOOKBACK Completed Data reviewed In office EKG: showed NSR left atrial enlargement, incomplete RBBB, LVH. Unchanged from EKG 06/2018 and incomplete RBBB present since 2010. ASSESSMENT/PLAN: 1. Pre-op examination - ICD9: V72.84, ICD10: Z01.818 (primary diagnosis) Will await nuclear stress test - CONSULT TO PULMONARY MEDICINE for pulmonary pre-op eval 2. Spermatocele - ICD9: 608.1, ICD10: N43.40 - Scheduled 10/03/2018 if able to clear for surgery 3. Coronary artery disease due to lipid rich plaque - ICD9: 414.00, 414.3, ICD10: I25.10, I25.83 Check - NM CARDIAC PERF STRESS/PHARM 4. Incomplete RBBB - ICD9: 426.4, ICD10: I45.10 Check - NM CARDIAC PERF STRESS/PHARM 5. Essential hypertension - ICD9: 401.9, ICD10: I10 - suboptimal control - Recommended regular aerobic exercise. - Recommend home blood pressure monitoring, to bring results in on next visit - Advised patient to start the Coreg 6.25 mg twice a day. NV BP check in 4 weeks - Goal of BP <130/80 6. Mixed hyperlipidemia - ICD9: 272.2, ICD10: E78.2 - Continue current therapy. 7. Chronic obstructive pulmonary disease, unspecified COPD type (HCC) - ICD9: 496, ICD10: J44.9 - Cont current Tx - CONSULT TO PULMONARY MEDICINE 8. Acute deep vein thrombosis (DVT) of proximal vein of both lower extremities (HCC) - ICD9: 453.41, ICD10: I82.4Y3 - Cont coumadin. Will increase daily dose to 2.5 mg every day. Has INR 09/21/2018 - Will need lovenox bridging prior to and after surgery till back to being therapeutic on INR. Will have him stop the coumadin 7 days prior (09/26/2018) to surgery and start lovenox 40 mg SQ once a day till morning of surgery. Patient to restart the next day and then on Oct 07 2018 restart his usual coumadin dosing along with the lovenox and get an INR on 10/11/2018 9. SESAY (dyspnea on exertion) - ICD9: 786.09, ICD10: R06.09 Check - NM CARDIAC PERF STRESS/PHARM 10. Decreased stamina - ICD9: 780.79, ICD10: R53.83 Check - NM CARDIAC PERF STRESS/PHARM 11. Dyspnea on exertion - ICD9: 786.09, ICD10: R06.09 Check - NM CARDIAC PERF STRESS/PHARM Keep routine f/u 01/2019 Time entering room was 12:30 PM and time leaving room was 1:23 PM (total face to face time was 53 min) MD Herminio Romero MD 09/13/2018 1:22 PM Addendum - Will need lovenox bridging prior to and after surgery till back to being therapeutic on INR. Will have him stop the coumadin 7 days prior (09/26/2018) to surgery and start lovenox 40 mg SQ once a day till morning of surgery (10/03/2018). Patient to restart the next day (10/04/2018) and then on Oct 07 2018 restart his usual coumadin dosing along with the lovenox and get an INR on 10/11/2018 Herminio Linares MD 09/15/2018 2:33 PM Signed Addended by: HERMNIIO LINARES on: 09/15/2018 02:33 PM Modules accepted: Orders Referring Provider: SELF [[id number]] Allergies As of Date: 09/13/2018 Noted Allergy Reaction BACTRIM (SULFAMETHOXAZOLE-TRIMETH*11/18/2008 14 - Other: See Comments Comments: sore throat LEVAQUIN (LEVOFLOXACIN) 06/10/2005 8 - GI Upset Date Reviewed: 09/13/2018 Reviewed by: Herminio Linares - Fully Assessed Reason for Visit: Pre-Op Exam [87] Cmt: cyst removal scrotum Primary Visit Diagnosis:Pre-op examination [Z01.818] Other Visit Diagnoses:Spermatocele [N43.40] Coronary artery disease due to lipid rich plaque [I25.10, I25.83] Incomplete RBBB [I45.10] Essential hypertension [I10] Mixed hyperlipidemia [E78.2] Chronic obstructive pulmonary disease, unspecified COPD type (HCC) [J44.9] Acute deep vein thrombosis (DVT) of proximal vein of both lower extremities (HCC) [I82.4Y3] SESAY (dyspnea on exertion) [R06.09] Decreased stamina [R53.83] Dyspnea on exertion [R06.09] Order(s):NM CARDIAC PERF STRESS/PHARM [0966335] Order #: [id number] [] regadenoson (LEXISCAN) 0.4 mg/5 mL syrgInject 5 mL intravenously one time only for 1 dose. Give IV push over 10 seconds and follow with 5 ml of normal salineDisp: 5 mLRfl: 0 IV DISCONTINUE [5001977] Order #: [id number]: 1 INSERT IV ([place]) [4116043] Order #: [id number]: 1 CONSULT TO PULMONARY MEDICINE [3798984] Order #: [id number]: 1 enoxaparin (LOVENOX) 40 mg/0.4 mL syrgInject 0.4 mL subcutaneously every 24 hours.Disp: 22 SyringeRfl: 0 SPIROMETRY WITH DILATOR IF OBSTRUCTED [0163723] Order #: [id number] FUTURE LUNG DIFFUSION CAPACITY (DLCO) [1502518] Order #: [id number] FUTURE ECG COMPLETE W INTERPRETATION [ECG01] Order #: [id number] FUTURE Prescriptions as of 09/13/2018 Sig: WARFARIN 2 MG TABLET Take 1 [...] ML INTRA* Inject 5 mL intravenously one* ENOXAPARIN 40 MG/0.4 ML SUBCU* Inject 0.4 mL subcutaneously * CARVEDILOL 6.25 MG TABLET Take 1 tablet by mouth twice * Problem List As Of Date 09/13/2018 Noted Resolved Tobacco use disorder [F17.200] 08/05/2016 SOLAR LENGINES [L81.9] INVALID FOR* Idiopathic urticaria [L50.1] INVALID [...] Ectatic thoracic aorta (HCC) [I77.810] INVALID FOR* Scrotal pain [N50.82] INVALID FOR* More... Incomplete RBBB [I45.10] INVALID FOR* More... Spermatocele [N43.40] INVALID FOR* Ex-smoker [Z87.891] INVALID FOR* More... Chewing tobacco use [Z72.0] INVALID FOR* Other instructions from your clinician: - Will need lovenox bridging prior to and after surgery till back to being therapeutic on INR. Will have him stop the coumadin 7 days prior (09/26/2018) to surgery and start lovenox 40 mg SQ once a day till morning of surgery (10/03/2018). Patient to restart the next day (10/04/2018) and then on Oct 07 2018 restart his usual coumadin dosing along with the lovenox and get an INR on 10/11/2018 Prescriptions ordered this encounter Disp Refills Start End REGADENOSON 0.4 MG/5 ML INTRAVENOUS * 5 mL 0 09/13/2018 09/13/2018 Class: In Office Route: INTRAVENOUS Sig: Inject 5 mL intravenously one time only for 1 dose. Give IV push over 10 seconds and follow with 5 ml of normal saline ENOXAPARIN 40 MG/0.4 ML SUBCUTANEOUS* 22 S* 0 09/13/2018 Class: Print RX Route: SUBCUTANEOUS Sig: Inject 0.4 mL subcutaneously every 24 hours. Disposition: Return if symptoms worsen or fail to improve. Follow-up and Disposition History Recorded Encounter Status:Closed by HERMINIO LINARES on 09/13/18 PROGRESS Observed: 09/07/2018 Status: COMPLETED Source: [place] 5:58 PM [facility] RE[facility] HNO ID: [id number] Author: Jose Eduardo Ma Service: (none) Author Type: (none) Type: Progress Notes Filed: 09/07/2018 6:00 PM Note Text: TC to patient - notified and verbalized understanding. Patient scheduled for 2 week INR check. Patient's daughter Sal also notified of instructions and appointment time. Tracker updated. Jose Eduardo Ma PROGRESS Observed: 09/07/2018 Status: COMPLETED Source: [place] 12:56 PM [facility] HNO ID: [id number] Author: Bradley Barnett Service: (none) Author Type: Physician Type: Progress Notes Filed: 09/07/2018 12:56 PM Note Text: Would not adjust coumadin dose at this time as patient is therapeutic. Continue current regimen. Recheck in 2 weeks. PROGRESS Observed: 09/07/2018 Status: COMPLETED Source: [place] 11:56 AM [facility] HNO ID: [id number] Author: Nevin Lucero RN Service: (none) Author Type: (none) Type: Progress Notes Filed: 09/07/2018 11:59 AM Note Text: patient had inr completed at [facility] CC patients inr is 2.0 (patients inr range is 2.0-3.0) patient is currently taking 2mg Mon,Wed and 2.5mg all other days patients last dose change unknown as pt just started with the CC on 08/31/18 patient has had no changes in medication and no missed doses and no change in diet Question: patient is wanting to know if dose can be changed to 2mg Wed and 2.5mg all other days to bring level up slightly? Patients check on 08/31 level os 2.0 also. Advised patient that they would be contacted regarding medication dose and when to follow up after information is reviewed by provider. After provider review please contact the patient with information and schedule follow up appointment with coumadin clinic. PROGRESS Observed: 08/31/2018 Status: COMPLETED Source: [place] 4:29 PM [facility] HNO ID: [id number] Author: Bradley Barnett Service: (none) Author Type: Physician Type: Progress Notes Filed: 08/31/2018 4:29 PM Note Text: INR therapeutic. Continue current coumadin dosage and follow up in 1 weeks. PROGRESS Observed: 08/31/2018 Status: COMPLETED Source: [place] 3:11 PM [facility] HNO ID: [id number] Author: Nevin Lucero RN Service: (none) Author Type: (none) Type: Progress Notes Filed: 08/31/2018 3:14 PM Note Text: patient had inr completed at [facility] CC patients inr is 2.0 (patients inr range is 2.0-3.0) patient is currently taking 2mg Mon,Wed and 2.5mg all other days patients last dose change unknown as this is patient first visit to the patient has had no changes in medication and no missed doses and no change in diet Advised patient to continue on the same dose(s) and that they would only be contacted regarding dosage and follow up instructions after review with provider, if a change is needed. Written instructions given and patient verbalized understanding. Presently scheduled in 1 week (09/07/18) for follow up INR since this is the first reading at the . PROTIME Collected: 08/17/2018 Status: F Source: [place] 10:37 AM [facility] TYPE CODE TESTS RESULT OUT OF REFERENCE UNITS RANGE LAB PSEC 9.7-13.0 sec Test PT sent to [facility]. Result Comment: Account Credited HIDE LAB INR 0.9-1.3 Test sent to PT INR [facility]. Result Comment: Account Credited HIDE PROTHROMBIN TIME W/INR Collected: 08/17/2018 Status: F Source: [place] 10:36 AM [facility] REPOSITORY TYPE CODE TESTS RESULT OUT OF RANGE REFERENCE UNITS LAB L300.4150 11.7-14.9 SECONDS High PROTIME 21.5 LAB L300.4200 Normal INR 1.9 Performed By: #### L300.3900 #### [facility] [address] [place], [address] NT PRO BNP Collected: 08/11/2018 Status: F Source: [place] 2:34 PM [facility] TYPE CODE TESTS RESULT OUT OF REFERENCE UNITS RANGE LAB PBNP <125 pg/mL High PRO B Natr 357 Peptide Performed By: #### NTBNP #### [facility] [address] [place], [place] [address] PROGRESS Observed: 08/10/2018 Status: COMPLETED Source: [place] 10:06 AM [facility] HNO ID: [id number] Author: Ewelina Richards Service: (none) Author Type: Physician Type: Progress Notes Filed: 08/10/2018 10:24 AM Note Text: PRIMARY CARE PHYSICIAN: Herminio Linares MD [address] [place] [address] REFERRING PHYSICIAN: Herminio Linares MD [address] [facility] [address] CHIEF COMPLAINT: Patient presents with: New Patient: [...] He has not followed up with a regional office coordinator on a regular basis. He does have [...] has been made to correct any errors. ELIAZAR Observed: 08/10/2018 Status: COMPLETED Source: [place] 9:30 AM [facility] Office Visit (AGCARDLOD) JOVANI HOLMAN ([id number]) 1950 M Date Time Provider Department 08/10/18 9:30 AM EWELINA RICHARDS During your visit today, we recorded the following information about you: Temperature Pulse Respiration Blood pressure 97.4 degrees 68/minute 16/minute 149/91 Weight Height 96.2 kg 1.753 m Ewelina Richards MD 08/10/2018 10:24 AM Signed PRIMARY CARE PHYSICIAN: Herminio Linares MD [address] [place] [address] REFERRING PHYSICIAN: Herminio Linares MD [address] [facility] [address] CHIEF COMPLAINT: Patient presents with: New Patient: [...] He has not followed up with a regional office coordinator on a regular basis. He does have [...] ascending Aorta - COLONOS W/REM POLYP SNARE 5/3/16 adenomatous polyp - 3 year follow up [...] the health of your heart. Developed by [employer]. Published by [employer]. Copyright ?2014 [employer] and/or one of its subsidiaries. All rights reserved. 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 Developed by [employer]. Published by [employer]. Copyright ?2014 [employer] and/or one of its subsidiaries. All rights reserved. Prescriptions ordered this encounter Disp Refills Start End CARVEDILOL 6.25 MG TABLET 60 t* 1 08/10/2018 Route: ORAL Sig: Take 1 tablet by mouth twice daily. Disposition: Return in about 6 months (around 02/08/2019). Follow-up and Disposition History Recorded Letter Text Encounter Status:Closed by EWELINA RICHARDS on 08/10/18 PROTIME Collected: 08/03/2018 Status: F Source: [place] 10:[address] [facility] REPOSITORY TYPE CODE TESTS RESULT OUT OF REFERENCE UNITS RANGE LAB PSEC 9.7-13.0 sec Test PT sent to [facility]. Result Comment: Account Credited HIDE LAB INR 0.9-1.3 Test sent to PT INR [facility]. Result Comment: Account Credited HIDE PROTHROMBIN TIME W/INR Collected: 08/03/2018 Status: F Source: [place] 12:00 AM [facility] REPOSITORY TYPE CODE TESTS RESULT OUT OF RANGE REFERENCE UNITS LAB L300.4150 11.7-14.9 SECONDS High PROTIME 21.9 LAB L300.4200 Normal INR 1.9 Performed By: #### L300.3900 #### [facility] [address] [place], [address] CNOV Observed: 07/26/2018 Status: COMPLETED Source: [place] 10:45 AM [facility] Office Visit (UROLMD) JOVANI HOLMAN ([id number]) 1950 M Date Time Provider Department 07/26/18 10:45 AM VINICIO ROONEY V URODOUG During your visit today, we recorded the following information about you: Weight Height 94.3 kg 1.753 m Chetna Webber Ma 07/26/2018 10:50 AM Signed Patient presents with: New Patient: Scrotal Cyst Referring Provider: ER STAFF [[id number]] Allergies As of Date: 07/26/2018 Noted Allergy [...] Urinary retention [R33.9] Order(s):UA DIP, URINE (POC) [[id number]] Order #: [id number]. #:[id number] Prescriptions as of 07/26/2018 Sig: WARFARIN 2 [...] New Patient: Scrotal Cyst Encounter Status:Closed by TACOS GUAMAN FACS, VINICIO Duggan on 07/26/18 PROGRESS Observed: 07/26/2018 Status: COMPLETED Source: [place] 12:00 AM [facility] [place] RE[facility]IT[facility] HNO ID: [id number] Author: Vinicio Rooney V Service: Urology Author Type: Physician Type: Progress Notes Filed: 07/28/2018 8:48 AM Note Text: [facility] NOTE DEPARTMENT OF UROLOGY [place] NAME: JOVANI HOLMAN NO.: [id number] DATE OF SERVICE: 07/26/2018 A 67-year-old male [...] dysfunction. 4. Probable hypogonadism. PSA at the AR was reported as being normal. I do not have a lab test to confirm that. Surgery will be scheduled as noted. Total time 45 minutes. DICTATED BY: Vinicio Rooney M.D. GC/Shreyas JOB# [id number] PROTIME Collected: 07/20/2018 Status: F Source: [place] 11:42 AM [facility] TYPE CODE TESTS RESULT OUT OF REFERENCE UNITS RANGE LAB PSEC 9.7-13.0 sec Test PT sent to [facility]. Result Comment: Account Credited JULIAE LAB INR 0.9-1.3 Test sent to PT INR [facility]. Result Comment: Account Credited HIDE CBC AND DIFFERENTIAL Collected: 07/20/2018 Status: F Source: [place] 11:41 AM [facility] TYPE CODE TESTS RESULT OUT [...] k/uL Abs Lymph 2.10 LAB AMONO % Amelia% 11.3 LAB AAMONO <0.87 k/uL Abs Amelia 0.64 LAB AEOS % Eosin% 2.3 LAB AAEOS <0.46 k/uL Abs Eosin 0.13 LAB ABASO % Baso% 0.5 LAB AABASO <0.11 k/uL Abs Baso 0.03 LAB AUNRBC 0 /100 WBC NRBCs 0.0 LAB ABNRBC <0.01 k/uL Absolute nRBC <0.01 LAB DTYP DTYPE Auto Diff Performed By: #### CBCDIF, BMP #### [facility] [address] [place] [address] BASIC METABOLIC PANL Collected: 07/20/2018 Status: F Source: [place] 11:41 AM [facility] TYPE CODE TESTS RESULT OUT OF REFERENCE UNITS RANGE LAB GLU 74-99 mg/dL High Glucose 114 Result Comment: The [place] Diabetes Association (ADA) provides guidance for cutoff [...] Standards of Medical Care in Diabetes 2016, [place] [employer]. Diabetes Care. 2016.39(Suppl 1). LAB [...] GFR. Performed By: #### CBCDIF, BMP #### [facility] [address] [place], [place] [address] PROTHROMBIN TIME W/INR Collected: 07/20/2018 Status: F Source: [place] 11:35 AM [facility] REPOSITORY TYPE CODE TESTS RESULT OUT OF RANGE REFERENCE UNITS LAB L300.4150 11.7-14.9 SECONDS High PROTIME 20.2 LAB L300.4200 Normal INR 1.7 Performed By: #### L300.3900 #### [facility] [address] [place], [address] PROGRESS Observed: 07/14/2018 Status: COMPLETED Source: [place] 10:[address] [facility] [place] REPOSITORY HNO ID: [id number] Author: Herminio Linares Service: (none) Author Type: [...] MD CNOV Observed: 07/14/2018 Status: COMPLETED Source: [place] 9:40 AM [facility] Office Visit (FAMPWS) JOVANI HOLMAN ([id number]) 1950 M Date Time Provider Department 07/14/18 9:40 AM HERMINIO LINARES FAMPWS During your visit [...] to next visit. Referring Provider: PIPE CAMPOS [[id number]] Allergies As of Date: 07/14/2018 Noted Allergy [...] [N28.9] Order(s):COMP METABOLIC PANEL [SQCMP] Order #: [id number] FUTURE URINALYSIS WITH MICROSCOPIC [SQUAWMIC] Order #: [id number] FUTURE PSA/PROSTSPECAG DIAG [SQPSA] Order #: [id number] FUTURE LIPID PANEL, NONFASTING [SQLIPNF] Order #: [id number] FUTURE CBC + DIFF [SQCBCDIF] Order #: [id number] FUTURE CBC + DIFF [SQCBCDIF] Order #: [id number] FUTURE BASIC METABOLIC PNL [SQBMP] Order #: [id number] FUTURE Prescriptions as of 07/14/2018 Sig: WARFARIN [...] in about 6 months (around 01/11/2019) for [facility] 40 min. Follow-up and Disposition History Recorded Encounter Status:Closed by HERMINIO LINARES on 07/14/18 PROGRESS Observed: 07/10/2018 Status: COMPLETED Source: [place] 10:19 AM [facility] HNO ID: [id number] Author: Kusum Valentine Service: (none) Author Type: Physician Type: Progress Notes Filed: 07/10/2018 10:20 AM Note Text: This office note has been dictated. Kusum Valentine DO CNOV Observed: 07/10/2018 Status: COMPLETED Source: [place] 9:30 AM [facility] Office Visit (VASSWS) JOVANI HOLMAN ([id number]) 1950 M Date Time Provider Department 07/10/18 9:30 AM KUSUM VALENTINE VASSWS During your visit today, we recorded the following information about you: Pulse Blood pressure 80/minute 108/71 Kusum Valentine DO 07/10/2018 10:20 AM Signed This office note has been dictated. Kusum Valentine DO Referring Provider: HERMINIO LINARES [[id number]] Allergies As of Date: 07/10/2018 Noted Allergy [...] (HCC) [I82.220] Order(s):CANE, QUAD OR THREE PRONG [[id number]] Order #: [id number] LEG VEIN DVT UNL VAS LAB [[id number]] Order #: [id number] FUTURE Prescriptions as of 07/10/2018 Sig: WARFARIN [...] 07/10/18 PROGRESS Observed: 07/10/2018 Status: COMPLETED Source: [place] 12:00 AM [facility] HNO ID: [id number] Author: Kusum Valentine Service: Vascular Surgery Author Type: Physician Type: Progress Notes Filed: 07/17/2018 4:43 PM Note Text: NAME: JOVANI HOLMAN [facility] NO: [id number] DATE OF SERVICE: 07/10/2018 Subjective: Mr. Holman [...] his CT scan that he had at [facility] in April. He will follow up with me sooner with any worsening symptoms. Kusum Valentine D.O. KB/089 Audio #: [id number] Date Dictated: 07/10/2018 10:10:50 Date Typed: 07/12/2018 11:56:30 Date Revised: PROTIME Collected: 07/06/2018 Status: F Source: [place] 12:03 PM [facility] TYPE CODE TESTS RESULT OUT OF REFERENCE UNITS RANGE LAB PSEC 9.7-13.0 sec Test PT sent to [facility]. Result Comment: Account Credited HIDE LAB INR 0.9-1.3 Test sent to PT INR [facility]. Result Comment: Account Credited HIDE PROTHROMBIN TIME W/INR Collected: 07/06/2018 Status: F Source: [place] 12:00 AM [facility] REPOSITORY TYPE CODE TESTS RESULT OUT OF RANGE REFERENCE UNITS LAB L300.4150 11.7-14.9 SECONDS High PROTIME 26.8 LAB L300.4200 Normal INR 2.5 Performed By: #### L300.3900 #### [facility] [address] [place], [place], [address] PROTIME Collected: 07/03/2018 Status: F Source: [place] 9:11 AM [facility] TYPE CODE TESTS RESULT OUT OF REFERENCE UNITS RANGE LAB PSEC 9.7-13.0 sec Test PT sent to [facility]. Result Comment: Account Credited HIDE LAB INR 0.9-1.3 Test sent to PT INR [facility]. Result Comment: Account Credited HIDE PROTHROMBIN TIME W/INR Collected: 07/03/2018 Status: F Source: [place] 9:10 AM [facility] REPOSITORY TYPE CODE TESTS RESULT OUT OF RANGE REFERENCE UNITS LAB L300.4150 11.7-14.9 SECONDS High PROTIME 28.4 LAB L300.4200 Normal INR 2.7 Performed By: #### L300.3900 #### [facility] [address] [facility] [address] PROTIME Collected: 06/30/2018 Status: F Source: [place] 11:40 AM [facility] TYPE CODE TESTS RESULT OUT OF REFERENCE UNITS RANGE LAB PSEC 9.7-13.0 sec Test PT sent to [facility]. Result Comment: Account Credited HIDE LAB INR 0.9-1.3 Test sent to PT INR [facility]. Result Comment: Account Credited HIDE PROTHROMBIN TIME W/INR Collected: 06/30/2018 Status: F Source: [place] 11:21 AM [facility] REPOSITORY TYPE CODE TESTS RESULT OUT OF RANGE REFERENCE UNITS LAB L300.4150 11.7-14.9 SECONDS High PROTIME 32.5 LAB L300.4200 Normal INR 3.1 Performed By: #### L300.3900 #### [facility] [address] [place], [address] PROTIME Collected: 06/29/2018 Status: F Source: [place] 12:10 PM [facility] TYPE CODE TESTS RESULT OUT OF REFERENCE UNITS RANGE LAB PSEC 9.7-13.0 sec Test PT sent to [facility]. Result Comment: Account Credited HIDE LAB INR 0.9-1.3 Test sent to PT INR [facility]. Result Comment: Account Credited HIDE PROTHROMBIN TIME W/INR Collected: 06/29/2018 Status: F Source: [place] 12:00 AM [facility] REPOSITORY TYPE CODE TESTS RESULT OUT OF RANGE REFERENCE UNITS LAB L300.4150 11.7-14.9 SECONDS High PROTIME 34.1 LAB L300.4200 Normal INR 3.3 Performed By: #### L300.3900 #### [facility] [address] [place], [address] CNPN Observed: 06/29/2018 Status: COMPLETED Source: [place] 12:00 AM [facility] Telephone (ImpulseFlyerPWS) JOVANI HOLMAN ([id number]) 1950 M Date Time Provider Department 06/29/18 [facility] During your visit today, we recorded the [...] (HCC) [I82.220] Order(s):PROTHROMBIN TIME/PT [SQPT] Order #: [id number] Prescriptions as of 06/29/2018 Sig: OXYCODONE 5 [...] Status:Closed by ELIZABETH HOWARD MA on 06/29/18 ELIAZAR Observed: 06/27/2018 Status: COMPLETED Source: [place] 1:20 PM [facility] Office Visit (FAMPWS) JOVANI HOLMAN ([id number]) 1950 M Date Time Provider Department 06/27/18 1:20 PM BRIANA CULP) FAMPWS During your visit [...] and pelvis. Patient did see Dr. Valentine ([facility]) while in hospital. Has f/u [...] 06/27/18 PROGRESS Observed: 06/27/2018 Status: COMPLETED Source: [place] 1:[address] [facility] [place] REPOSITORY O ID: [id number] Author: Jeff Culp Service: (none) Author Type: Physician Policy Service Coordinator Type: Progress Notes Filed: 06/27/2018 1:55 PM [...] and pelvis. Patient did see Dr. Valentine ([facility]) while in hospital. Has f/u [...] PA-C PROTIME Collected: 06/27/2018 Status: F Source: [place] 12:49 PM [facility] TYPE CODE TESTS RESULT OUT OF REFERENCE UNITS RANGE LAB PSEC 9.7-13.0 sec Test PT sent to [facility]. Result Comment: Account Credited HIDE LAB INR 0.9-1.3 Test sent to PT INR [facility]. Result Comment: Account Credited HIDE PROTHROMBIN TIME W/INR Collected: 06/27/2018 Status: F Source: [place] 12:00 AM [facility] REPOSITORY TYPE CODE TESTS RESULT OUT OF RANGE REFERENCE UNITS LAB L300.4150 11.7-14.9 SECONDS High PROTIME 34.7 LAB L300.4200 Normal INR 3.4 Performed By: #### L300.3900 #### [facility] [address] [place], [address] PROGRESS Observed: 06/26/2018 Status: COMPLETED Source: [place] 12:56 PM [facility] HNO ID: [id number] Author: Honey Cochran Pharm-T Service: (none) Author Type: (none) Type: Progress Notes Filed: 06/26/2018 1:01 PM Note Text: TRANSITION CARE MANAGEMENT (TCM) INITIAL CONTACT Provider Action/FYI: ? Patient was contacted for postdischarge TCM Medication History and has declined pharmacy TCM services. Initial contact with patient post discharge, spoke to patient. Patient identified by name and . Summary: -Pt discharged from [facility] on 06/24/18. -Follow up appointment on 06/27/18(hospital f/u)07/14/18(PCP). -Medication review done No. -Admitted for Groin pain Honey Cochran Pharm-T June 26, 2018 12:56 PM PROTIME Collected: 06/26/2018 Status: F Source: [place] 12:00 PM [facility] TYPE CODE TESTS RESULT OUT OF REFERENCE UNITS RANGE LAB PSEC 9.7-13.0 sec Test PT sent to [facility]. Result Comment: Account Credited HIDE LAB INR 0.9-1.3 Test sent to PT INR [facility]. Result Comment: Account Credited HIDE PROTHROMBIN TIME W/INR Collected: 06/26/2018 Status: F Source: [place] 11:42 AM [facility] REPOSITORY TYPE CODE TESTS RESULT OUT OF RANGE REFERENCE UNITS LAB L300.4150 11.7-14.9 SECONDS High PROTIME 32.3 LAB L300.4200 Normal INR 3.1 Performed By: #### L300.3900 #### [facility] [address] [place], [address] [facility] Observed: 06/26/2018 Status: COMPLETED Source: [place] 12:00 AM [facility] Patient Outreach (PHRXRF) JOVANI HOLMAN ([id number]) 1950 M Date Time Provider Department 06/26/18 HERMINIO LINARES [...] name and . Summary: -Pt discharged from [facility] on 06/24/18. -Follow up appointment on 06/27/18(hospital f/u)07/14/18(PCP). -Medication review done No. -Admitted for Groin pain Honey Cochran Pharm-T June 26, 2018 12:56 PM Allergies [...] THERAPY NT Observed: 06/24/2018 Status: COMPLETED Source: [place] 12:55 PM [facility] REPOSITORY HNO ID: [id number] Author: Anu SilvaOtr/L) Shelli Service: Occupational Therapy Author Type: Occupational Therapist Type: Therapy (PT/OT/Speech/Resp) Filed: 06/24/2018 1:03 PM Note Text: Occupational Therapy Evaluation SERVICE DATE: 06/24/2018 SERVICE TIME: 1030 to 1050 ROOM: [place] [address] Recommended Discharge Disposition: Home Recommended Discharge Disposition [...] address deficits in order to return to [facility]. Patient Disposition at Start of Session: Supine [...] (ADL);General symptoms and signs-other Interventions Provided: Evaluation;Self Group Home Management (86930) $ Evaluation-Low (60173) Billed Units: 1 unit Self Group Home Management (39543) Treatment Minutes: 10 1 unit Skilled Intervention(s): [...] complete details for this therapy evaluation/treatment. SIGNATURE: ILIA Hebert/Gerald PATIENT NAME: Jovani Holman DATE: June 24, 2018 MRN: [id number] TIME: 12:59 PM CNDS Observed: 06/24/2018 Status: COMPLETED Source: [place] 11:49 AM CLINIC OTHER [facility]AMPUS REPOSITORY O ID: [id number] Author: Arsenio Keith Service: Hospital Medicine Author [...] patient. SIGNATURE: Arsenio Keith MD PAGER/CONTACT #: [phone] DATE: June 24, 2018 TIME: 11:49 AM CASE MANAGEM Observed: 06/24/2018 Status: COMPLETED Source: [place] 11:28 AM [facility] OTHER [facility] REPOSITORY O ID: [id number] Author: Liz Rodriguez (Sw) Service: Case Management Author Type: Back Strip Machine Operator Type: Care Mgt Progress Note Filed: 06/24/2018 [...] Sent summary of care. Per patient request, [facility] tasked for a PCP follow up appointment. to transport. SIGNATURE: CHRISTEN Dos Santos PATIENT NAME: Jovani Holman DATE: June 24, 2018 MRN: [id number] TIME: 11:28 AM PAGER/CONTACT #: [phone] CASE MANAGEM Observed: 06/24/2018 Status: COMPLETED Source: [place] 11:25 AM [facility] REPOSITORY HNO ID: [id number] Author: Liz Rodriguez (Sw) Service: Case Management Author Type: Back Strip Machine Operator Type: Care Mgt Progress Note Filed: 06/24/2018 11:26 AM Note Text: CARE MANAGEMENT PROGRESS NOTE SERVICE DATE: 06/24/2018 SERVICE TIME: 11:25 AM LOS: 1 day Needs Prior to Discharge: To Be Determined CM met with patient bedside. Patient refusing HHC and would like to discharge home. [facility] tasked. SIGNATURE: CHRISTEN Dos Santos PATIENT NAME: Jovani Holman DATE: June 24, 2018 MRN: [id number] TIME: 11:25 AM PAGER/CONTACT #: [phone] THERAPY NT Observed: 06/24/2018 Status: COMPLETED Source: [place] 10:[address] [facility] OTHER [place] REPOSITORY HNO ID: [id number] Author: Segun Araujo Service: Hospital Medicine Author Type: Physical Therapist Type: Therapy (PT/OT/Speech/Resp) Filed: 06/24/2018 10:26 AM Note Text: Physical Therapy Evaluation SERVICE DATE: 06/24/2018 SERVICE TIME: 45 to 1012 ROOM: [place] [address] Recommended Discharge Disposition: Home PT Recommended Discharge Disposition Comments: Patient is functioning near baseline levels and can benefit from continued skilled PT services at home to improve strength, safety, activity tolerance, and general functional mobility to return to PLOF Anticipated Discharge Needs: Physical Assist at Home;Supervision [...] at End of Session: Supine in Bed;Call [place] in Reach Tolerance Limited By Pain Physical [...] and signs-other;Difficulty walking-musculoskeletal Interventions Provided: Evaluation;Therapeutic Activity (85233);Gait Training (43850) $ Evaluation-Moderate (85345) Billed Units: 1 unit Therapeutic Activity (18669) Treatment Minutes: 10 1 unit Skilled Intervention(s): Instructed patient in supine to and from sit pushing with upper extremities to sit up Instruction in sit to and from stand technique with proper hand placement and body positioning at edge of bed/chair Education with role of PT, importance of getting OOB to reduce effects of prolonged bed rest, POC, and D/C plan. Gait Training (83116) Treatment Minutes: 7 0 units Skilled Intervention(s): [...] AM PROTIME Collected: 06/24/2018 Status: F Source: [place] 4:21 AM CLINIC OTHER CAMPUS REPOSITORY TYPE CODE TESTS RESULT OUT OF RANGE REFERENCE UNITS LAB PSEC 9.7-13.0 sec High PT Sec 22.7 LAB INR 0.9-1.3 High PT INR 2.3 Result Comment: Vitamin K Antagonist (VKA) Therapeutic Range: INR 2 to 3 (Target INR of 2.5) Note: For patients treated with VKA drugs, such as warfarin, the [place] [employer] 2012 Guideline recommends [...] Chest 2012, 141:7S-47S Andrzej MILLAN, et al. [facility] 2017, 70: 252-289 Performed By: #### PT #### [facility] [address] [facility] [phone] CONSULT PROG Observed: 06/23/2018 Status: COMPLETED Source: [place] 5:02 PM CLINIC OTHER CAMPUS REPOSITORY HNO ID: [id number] Author: Vinicio Rooney V Service: Urology Author Type: Physician Type: Consult Progress Note Filed: 06/23/2018 5:04 PM Note Text: pt still cites orchalgia left greater than right, though no significant swelling present. would keep on oral antibiotics for 2 to 3 weeks post discharge with urology followup. . Reconsult if necessary. Signing off. PROGRESS Observed: 06/23/2018 Status: COMPLETED Source: [place] 1:[address] [facility] OTHER [place] REPOSITORY HNO ID: [id number] Author: Arsenio Keith Service: Hospital Medicine Author Type: Physician Type: Progress Notes Filed: 06/23/2018 1:28 PM Note Text: SERVICE DATE: 06/23/2018 SERVICE TIME: 1:28 PM HOSPITAL MEDICINE PROGRESS NOTE NIGHT AND WEEKEND COVERAGE: Nights: Please contact pager [phone]. HPI 67 Y O M with PMH [...] 1745 -- 06/22/18 1815 graduated compression stockings (ma,ne) 06/21/18 174 vte non-pharmacologic prophylaxis - none indicated (ma,ne) 06/21/18 174 vte current anticoag therapy (ma,ne) 06/21/18 174 activity - mobilize patient ([place]) VTE Prophylaxis: VTE prophylaxis appropriate Plan of care discussed with: Patient and RN SIGNATURE: Arsenio Keith MD PATIENT NAME: Jovani Holman DATE: June 23, 2018 MRN: [id number] TIME: 1:28 PM PAGER/CONTACT #: [phone] THERAPY NT Observed: 06/23/2018 Status: COMPLETED Source: [place] 11:[address] [facility] OTHER [place] REPOSITORY HNO ID: [id number] Author: TIERRA SINHA (OT/L) Service: Occupational Therapy Author Type: Occupational Therapist Type: Therapy (PT/OT/Speech/Resp) Filed: 06/23/2018 11:46 AM Note Text: OCCUPATIONAL THERAPY MISSED VISIT SERVICE DATE: 06/23/2018 SERVICE TIME: 1130 to 1131 ROOM: [place] [address] Attempted Evaluation. Patient not seen due to [...] as able and as pt appropriate/agreeable. SIGNATURE: TASHIA TIWARI PATIENT NAME: Jovani Holman DATE: June 23, 2018 MRN: [id number] TIME: 11:43 AM THERAPY NT Observed: 06/23/2018 Status: COMPLETED Source: [place] 8:[address] [facility] OTHER [place] REPOSITORY HNO ID: [id number] Author: Lindsay SilvaPtMickey Sandy Service: Physical Therapy Author Type: Physical Therapist Type: Therapy (PT/OT/Speech/Resp) Filed: 06/23/2018 1:48 PM Note Text: PHYSICAL THERAPY MISSED VISIT SERVICE DATE: 06/23/2018 SERVICE TIME: 0845 to 0902 ROOM: [place] [address] Attempted Evaluation. Patient not seen due to [...] PM PROTIME Collected: 06/23/2018 Status: F Source: [place] 4:[address] [facility] OTHER CAMPUS REPOSITORY TYPE CODE TESTS RESULT OUT OF RANGE REFERENCE UNITS LAB PSEC 9.7-13.0 sec High PT Sec 18.2 LAB INR 0.9-1.3 High PT INR 1.9 Result Comment: Vitamin K Antagonist (VKA) Therapeutic Range: INR 2 to 3 (Target INR of 2.5) Note: For patients treated with VKA drugs, such as warfarin, the [place] [employer] 2012 Guideline recommends [...] JACC 2017, 70: 252-289 Performed By: #### PT #### [facility] [address] [place] [address] CONSULT PROG Observed: 06/22/2018 Status: COMPLETED Source: [place] 6:[address] [facility] OTHER [place] REPOSITORY HNO ID: [id number] Author: Kusum Valentine Service: Vascular Surgery Author [...] labs and imaging results. CBC: Recent Labs 06/22/18515 WBC 8.29 RBC 3.88* HB 12.4* HCT 38.1* PLT 147* MCV 98.2 MCH 32.0 MPV 11.8 Coags: Recent Labs 06/22/18515 INR 1.5* SIGNATURE: Kusum Valentine, DATE: June 22, 2018 TIME: 6:09 PM THERAPY NT Observed: 06/22/2018 Status: COMPLETED Source: [place] 2:01 PM CLINIC OTHER [place] REPOSITORY HNO ID: [id number] Author: Karon Cooper/Kirt Julian Service: Occupational Therapy Author Type: Occupational Therapist Type: Therapy (PT/OT/Speech/Resp) Filed: 06/22/2018 2:03 PM Note Text: OCCUPATIONAL THERAPY MISSED VISIT SERVICE DATE: 06/22/2018 SERVICE TIME: 1401 to 1401 ROOM: [place] [address] Attempted Evaluation. Patient not seen due to Other: See Comment. Per PT, pt with elevated groin pain limiting mobility and tolerance to functional activity. Will attempt OT evaluation as able and appropriate. SIGNATURE: ILIA Pinto/Gerald PATIENT NAME: Jovani Holman DATE: June 22, 2018 MRN: [id number] TIME: 2:01 PM PROGRESS Observed: 06/22/2018 Status: COMPLETED Source: [place] 1:49 PM CLINIC OTHER CAMPUS REPOSITORY HNO ID: [id number] Author: Arsenio Keith Service: Hospital Medicine Author Type: Physician Type: Progress Notes Filed: 06/22/2018 1:50 PM Note Text: SERVICE DATE: 06/22/2018 SERVICE TIME: 1:49 PM HOSPITAL MEDICINE PROGRESS NOTE NIGHT AND WEEKEND COVERAGE: Nights: Please contact pager [phone]. HPI 67 Y O M with PMH [...] EVERY 12 HOURS 06/21/18 1745 -- 06/21/18 1745 vte non-pharmacologic prophylaxis - none indicated (ma,ne) 06/21/18 1745 vte current anticoag therapy ([place], [place]) 06/21/18 1745 activity - mobilize patient ([place]) VTE Prophylaxis: VTE prophylaxis appropriate Plan of care discussed with: Patient and RN SIGNATURE: Arsenio Keith MD PATIENT NAME: Jovani Holman DATE: June 22, 2018 MRN: [id number] TIME: 1:49 PM PAGER/CONTACT #: [phone] THERAPY NT Observed: 06/22/2018 Status: COMPLETED Source: [place] 11:30 AM CLINIC OTHER CAMPUS REPOSITORY HNO ID: [id number] Author: Lindsay Sandy Service: Physical Therapy Author Type: Physical Therapist Type: Therapy (PT/OT/Speech/Resp) Filed: 06/22/2018 1:32 PM Note Text: PHYSICAL THERAPY MISSED VISIT SERVICE DATE: 06/22/2018 SERVICE TIME: 1130 to 1140 ROOM: [place] [address] Attempted Evaluation. Patient not seen due to [...] PM CONSULT Observed: 06/22/2018 Status: COMPLETED Source: [place] 9:41 AM CLINIC OTHER CAMPUS REPOSITORY HNO ID: [id number] Author: Sarahy Perry Service: Urology Author Type: [...] 01/11/2018 - Chronic obstructive pulmonary disease (COPD) ([facility]) - Coronary artery disease due to lipid [...] 108 18 (!) 94 % - - 10/17/18 1150 (!) 88/68 37.2 ?C (98.9 ?F) [...] 06/22/2018 Neut% 77.7 06/21/2018 Lymph% 11.8 06/21/2018 Amelia% 10.3 06/21/2018 Eosin% 0.0 06/21/2018 Baso% 0.2 06/21/2018 Abs Neut (ANC) 6.86 06/21/2018 Abs Amelia 0.91 06/21/2018 Abs Eosin <0.03 06/21/2018 Abs Baso <0.03 06/21/2018 pH, Urine Date Value Ref Range Status 06/21/2018 7.0 5.0 - 8.0 Final Specific [place], Ur Date Value Ref Range Status 06/21/2018 [...] studies. 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, bed in low position and locked, call [...] and even on ra, states his pain 5/10, PRN med working, bed in low position and locked, call light within reach This note was completed by: Shana Valentine RN PROTIME Collected: 06/22/2018 Status: F Source: [place] 5:16 AM CLINIC OTHER CAMPUS REPOSITORY TYPE CODE TESTS RESULT OUT OF RANGE REFERENCE UNITS LAB PSEC 9.7-13.0 sec High PT Sec 15.0 LAB INR 0.9-1.3 High PT INR 1.5 Result Comment: Vitamin K Antagonist (VKA) Therapeutic Range: INR 2 to 3 (Target INR of 2.5) Note: For patients treated with VKA drugs, such as warfarin, the [place] [employer] 2012 Guideline recommends [...] Chest 2012, 141:7S-47S Andrzej MILLAN, et al. [facility] 2017, 70: 252-289 Performed By: #### PT, CBC, CMP #### [facility] [address] [place] [address] CBC Collected: 06/22/2018 Status: F Source: [place] 5:[address] [facility] OTHER CAMPUS REPOSITORY TYPE CODE [...] Performed By: #### PT, CBC, CMP #### [facility] [address] [facility] [phone] COMP METABOLIC PANEL Collected: 06/22/2018 Status: F Source: [place] 5:16 AM CLINIC OTHER CAMPUS REPOSITORY TYPE [...] mg/dL Glucose High 101 Result Comment: The [place] [employer] Association (ADA) provides guidance for cutoff [...] Standards of Medical Care in Diabetes 2016, [place] [employer]. Diabetes Care. 2016.39(Suppl 1). LAB [...] Performed By: #### PT, CBC, CMP #### [facility] [address] [facility] [phone] HISTORY PHYSICAL Observed: 06/21/2018 Status: COMPLETED Source: [place] 6:32 PM CLINIC OTHER CAMPUS REPOSITORY HNO ID: [id number] Author: Reuben Gabriel Service: Hospital Medicine Author Type: Physician Type: HANDP Filed: 06/21/2018 6:33 PM Note Text: SERVICE DATE: 06/21/2018 SERVICE TIME: 6:32 PM HOSPITAL MEDICINE HISTORY AND PHYSICAL PCP: Herminio Linares MD NIGHT AND WEEKEND COVERAGE: Nights: Please contact pager [phone]. SUBJECTIVE Chief Complaint: Right groin pain HPI: [...] extremities (HCC) 05/12/2018 - Adenomatous colon polyp 10/25/2013 2009 - Agent orange exposure 02/21/2016 - Bladder [...] (LOVENOX) 1 mg/kg/dose SUBCUTANEOUS EVERY 12 HOURS 06/21/181744 -- 06/21/18 1800 aspirin, enteric coated 81 mg tab(s) 81 mg ORAL DAILY 06/21/18 174 -- 06/21/181744 vte non-pharmacologic prophylaxis - none indicated (ma,ne) 06/21/181744 vte current anticoag therapy (ma,ne) 06/21/181744 activity - mobilize patient ([place]) VTE Prophylaxis: VTE prophylaxis appropriate SIGNATURE: Reuben Gabriel MD PATIENT NAME: Jovani Holman DATE: June 21, 2018 MRN: [id number] TIME: 6:32 PM PAGER/CONTACT #: [phone] US DOPPLER COMPLETE Observed: 06/21/2018 Status: F Source: [place] 4:31 PM CLINIC OTHER CAMPUS REPOSITORY * [...] with Lucy HERRERA on 06/21/2018 4:34 PM Cement Block Maker: ELIZABETH Transcribe Date/Time: Jun 21 2018 4:34P Dictated by : MANUEL BAILON DO This examination was interpreted and the report reviewed and electronically signed by: MANUEL BAILON DO on Jun 21 2018 5:02PM EST [id number] US SCROTUM AND Observed: 06/21/2018 Status: F Source: [place] CONTENTS 4:31 PM CLINIC OTHER CAMPUS REPOSITORY * [...] with Lucy HERRERA on 06/21/2018 4:34 PM Cement Block Maker: ELIZABETH Transcribe Date/Time: Jun 21 2018 4:34P Dictated by : MANUEL BAILON DO This examination was interpreted and the report reviewed and electronically signed by: MANUEL BAILON DO on Jun 21 2018 5:02PM EST [id number] CASE MGT INIT Observed: 06/21/2018 Status: COMPLETED [facility] OTHER CAMP[facility] REPOSITORY HNO ID: [id number] Author: Hilaria (Rn) SHIMA Ramon Service: (none) Author Type: Registered Nurse Type: Care Mgt Initial Assessment Filed: 06/21/2018 4:33 PM Note Text: CARE MANAGEMENT: ASSESSMENT AND DISCHARGE PLAN SERVICE DATE: 06/21/2018 SERVICE TIME: 4:28 PM PRIMARY CARE PHYSICIAN: Herminio Linares MD (confirmed) ADMISSION STATUS: Emergency Needs Prior to Discharge: To Be Determined 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 No SOCIAL: Living Arrangement: Home Lives With: Spouse Financial Resources: Retired Primary Contact: Extended Emergency Contact Information Primary Emergency Contact: Ashley Holman Address: [address] [place], [place] [id number] [place] [address] Mobile Relation: Spouse Secondary Emergency Contact: Catherine [...] 0 I feel financially burdened by my ian-eh-qcjklj expenses for my prescription medication: Disagree mostly -0 Patient is categorized as low risk < 2 Are you interested in bedside delivery of your medications? No , uses [facility] in [place] Food Concerns: In the Last Month, Have [...] AANDOx4, resides with spouse in a 1SH. 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 CM instructed pt that a CM will remain available for any d/c needs. Pt had no further questions/concerns voiced at this time. 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 He was initially on xarelto however when [...] 01/11/2018 - Chronic obstructive pulmonary disease (COPD) ([facility]) - Coronary artery disease due to lipid [...] 21, 2018 MRN: 105 TIME: 4:22 PM PAGER:[phone] ED NOTE Observed: 06/21/2018 Status: COMPLETED Source: [place] 3:00 PM CLINIC OTHER CAMPUS REPOSITORY HNO ID: [id number] Author: Charline (Rn) SHIMA Rivera Service: (none) Author Type: Registered Nurse Type: ED Notes Filed: 06/21/2018 3:37 PM Note Text: Pt walking in [place] with rn and medic, pulse 115 bpm, 95% spo2 on room air. Nelson vargas aware ED NOTE Observed: 06/21/2018 Status: COMPLETED Source: [place] 2:[address] [facility] OTHER CAMPUS REPOSITORY HNO ID: [id number] Author: Charline SilvaRn) Miguel RN Service: (none) Author Type: Registered Nurse Type: ED Notes Filed: 06/21/2018 2:52 PM Note Text: Clean catch urine specimen obtained and sent. URINALYSIS Collected: 06/21/2018 Status: F Source: [place] 2:[address] [facility] OTHER CAMPUS REPOSITORY TYPE CODE TESTS RESULT OUT OF REFERENCE UNITS RANGE LAB UCOL Yellow Color Yellow LAB [facility] Clear Clarity Clear LAB UGLUC Negative mg/dL Glucose, Urine Negative LAB UBIL Negative Bilirubin, Urine Negative LAB UKET Negative Ketones, Urine Negative LAB USPG 1.001-1.029 Specific [place], Ur <=1.005 LAB UHGB Negative Hemoglobin/Blood, Negative Ur LAB UPH 5.0-8.0 pH 7.0 LAB UPROT Negative mg/dL Protein, Urine Negative LAB UUROB 0.2-1.0 Urobilinogen 0.2 LAB UNITR Negative Nitrites Negative LAB ULKEST Negative Leukest Negative Performed By: #### UA #### [facility] [address] [place] [address] CT ABD/PEL W IVCON Observed: 06/21/2018 Status: F Source: [place] 1:[address] [facility] OTHER CAMPUS REPOSITORY * * *Final Report* * * DATE OF EXAM: Jun 21 2018 1:11PM [facility] 0530 - CT ABD/PEL W IVCON / [...] extensive abdominal and pelvic thrombus as detailed Cement Block [facility] Transcribe Date/Time: Jun 21 2018 1:20P Dictated by : SARAHY GALLARDO MD This examination was interpreted and the report reviewed and electronically signed by: SARAHY GALLARDO MD on Jun 21 2018 2:11PM EST [id number] CT CHEST W IVCON PE Observed: 06/21/2018 Status: F Source: [place] 1:11 PM CLINIC OTHER CAMPUS REPOSITORY * * *Final Report* * * DATE OF EXAM: Jun 21 2018 1:11PM [facility] 0540 - CT CHEST W IVCON PE [...] extensive abdominal and pelvic thrombus as detailed Cement Block Maker: ELIZABETH Transcribe Date/Time: Jun 21 2018 1:20P Dictated by : SARAHY GALLARDO MD This examination was interpreted and the report reviewed and electronically signed by: SARAHY GALLARDO MD on Jun 21 2018 2:11PM EST [id number] ED PROV NOTE Observed: 06/21/2018 Status: COMPLETED Source: [place] 12:59 PM CLINIC OTHER CAMPUS REPOSITORY O ID: [id number] Author: Lucy Trejo (Pa) Service: Emergency Medicine Author Type: Physician Policy Service Coordinator Type: ED Provider Notes Filed: 06/21/2018 5:25 PM Note Text: Attestation signed by Gabriel Jc III, MD at 06/22/2018 9:27 AM Attending Note I have personally performed a face to face assessment of the patient and have reviewed the PA/ASSEMBLY DEPARTMENT SUPERVISOR note. My mayer findings include: This is [...] while in the hospital. He states since June 19 he's had right groin pain. He does report he was noted to be subtherapeutic on his INR on that day. He is concerned he could have worsening cough. He did follow up today with PAINTER ASSISTANT at his PCPs office and was recommended [...] 145 (*) 150 - 400 k/uL Abs Amelia 0.91 (*) <0.87 k/uL All other components [...] PVC noted. LAD noted. No ST elevation [place] noted. CBC shows clinic, 45 otherwise unremarkable. [...] with urology in regards to this, Dr. Bologna. Since patient is being admitted they will [...] is stable. SIGNATURE: BLANCA Luna (Pa) 06/21/18 1725 Gabriel Jc III, MD 06/22/18 0927 CBC AND DIFFERENTIAL Collected: 06/21/2018 Status: F Source: [place] 12:09 PM CLINIC OTHER CAMPUS REPOSITORY TYPE [...] k/uL Abs Lymph 1.04 LAB AMONO % Amelia% 10.3 LAB AAMONO <0.87 k/uL Abs Amelia High 0.91 LAB AEOS % Eosin% 0.0 LAB AAEOS <0.46 k/uL Abs Eosin <0.03 LAB ABASO % Baso% 0.2 LAB AABASO <0.11 k/uL Abs Baso <0.03 Performed By: #### CBCDIF, PT, PTT, CMP #### [facility] [address] [facility] [phone] PROTIME Collected: 06/21/2018 Status: F Source: [place] 12:[address] [facility] OTHER CAMPUS REPOSITORY TYPE CODE TESTS RESULT OUT OF RANGE REFERENCE UNITS LAB PSEC 9.7-13.0 sec High PT Sec 13.7 LAB INR 0.9-1.3 High PT INR 1.4 Result Comment: Vitamin K Antagonist (VKA) Therapeutic Range: INR 2 to 3 (Target INR of 2.5) Note: For patients treated with VKA drugs, such as warfarin, the [place] [employer]icians 2012 Guideline recommends [...] Chest 2012, 141:7S-47S Andrzej RA, et al. [facility] 2017, 70: 252-289 Performed By: #### CBCDIF, PT, PTT, CMP #### [facility] [address] [place] [address] APTT Collected: 06/21/2018 Status: F Source: [place] 12:09 PM [facility] REPOSITORY TYPE CODE TESTS RESULT [...] laboratory APTT reagent in use throughout the [facility]. Performed By: #### CBCDIF, PT, PTT, CMP #### [facility] [address] [place] [address] COMP METABOLIC PANEL Collected: 06/21/2018 Status: F Source: [place] 12:09 PM CLINIC OTHER CAMPUS REPOSITORY TYPE [...] mg/dL Glucose High 138 Result Comment: The [place] Diabetes Association (ADA) provides guidance for cutoff [...] Standards of Medical Care in Diabetes 2016, [place] [employer]. Diabetes Care. 2016.39(Suppl 1). LAB [...] By: #### CBCDIF, PT, PTT, CMP #### [facility] [address] [place], [place] [phone] TROPONIN T Collected: 06/21/2018 Status: F Source: [place] 12:09 PM CLINIC OTHER CAMPUS REPOSITORY TYPE CODE TESTS RESULT OUT OF REFERENCE UNITS RANGE LAB TROPT 0.000-0.029 ng/mL Troponin T <0.010 Performed By: #### DARIUS #### [facility] [address] [place], [place] [phone] CK, TOTAL AND CKMB Collected: 06/21/2018 Status: F Source: [place] 12:[address] [facility] OTHER CAMPUS REPOSITORY TYPE CODE TESTS RESULT OUT OF REFERENCE UNITS RANGE LAB CK 51-298 U/L Low 49 CK LAB MB <7.7 ng/mL MB <1.0 LAB CKMBRI 0.0-4.0 % CK CK MB MB % not % reported with CK <100 U/L. Performed By: #### CKCKMB, NTBNP #### [facility] [address] [place] [address] NT PRO BNP Collected: 06/21/2018 Status: F Source: [place] 12:[address] [facility] OTHER CAMPUS REPOSITORY TYPE CODE TESTS RESULT OUT OF REFERENCE UNITS RANGE LAB PBNP <125 pg/mL High PRO B Natr 251 Peptide Performed By: #### CKCKMB, NTBNP #### [facility] [address] [place], [place] [phone] CK Collected: 06/21/2018 Status: F Source: [facility] 12:09 PM OTHER CAMPUS REPOSITORY TYPE CODE TESTS RESULT OUT OF RANGE REFERENCE UNITS LAB CK 51-298 U/L Low CK 47 Performed By: #### CK, CRP #### [facility] [address] [place], [place] [phone] C-REACTIVE PROTEIN Collected: 06/21/2018 Status: F Source: [place] 12:[address] [facility] OTHER CAMPUS REPOSITORY TYPE CODE TESTS RESULT OUT OF REFERENCE UNITS RANGE LAB CRP <0.9 mg/dL High C-Reactive 8.3 Protein Performed By: #### CK, CRP #### [facility] [address] [place], [place] [phone] EKG Observed: 06/21/2018 Status: F Source: [place] 11:[address] [facility] OTHER [place] REPOSITORY NAME : JOVANI HOLMAN PID : [id number] : [id number] Gender : Male Race : ORD : [id number] Procedure Date : Jun 21 2018 11:55:35 Edit Date : Jun 22 2018 06:45:13 Diagnosis:SINUS TACHYCARDIA WITH OCCASIONAL PREMATURE VENTRICULAR COMPLEXES POSSIBLE LEFT ATRIAL ENLARGEMENT LEFT AXIS DEVIATION CANNOT RULE OUT ANTERIOR INFARCT , AGE UNDETERMINED ABNORMAL ECG NO PREVIOUS ECGS AVAILABLE I AGREE NSL 1205 NO STEMI Confirmed by JEREMÍAS ROSE MD, NICHOLAS ([id number]), continuity editor BRADLEY TAMAYO ([id number]) on 06/22/2018 6:45:07 AM Ventricular Rate : 109 BPM Atrial Rate : 109 BPM P-R Interval : 184 ms QRS Duration : 88 ms Q-T Interval : 330 ms QTC Calculation(Bezet) : 444 ms P [place] : 28 degrees R [place] : -43 degrees T [place] : 16 degrees Test Reason : Arrhythmia Location : 1 : ER 3 Overread By : JEREMÍAS ROSE MD, NICHOLAS Edited By : BRADLEY TAMAYO Referred By : , Acquired by : EOK, ED NOTE Observed: 06/21/2018 Status: COMPLETED Source: [place] 11:51 AM [facility] REPOSITORY HNO ID: [id number] Author: Edda (Rn) SHIMA Vences Service: Emergency [...] pain. CNOV Observed: 06/21/2018 Status: COMPLETED Source: [place] 8:40 AM [facility] REPOSITORY [facility] JOVANI HOLMAN ([id number]) 1950 M Date Time Provider Department 06/21/18 8:40 AM JAYMIE MONAE) KEN During your visit today, we recorded the following information about you: Pulse Respiration Blood pressure Weight 60/minute 14/minute 134/76 94.8 kg Jaymie Monae APRN.CNP 06/21/2018 9:47 AM Signed HPI/CC: Jovani Holman is a 67 year old male who presents to the office today for hospital follow-up. He was to [facility] following c/o right inguinal pain for 2 [...] Dr. Linares's office at 1 pm in [place] to have INR checked and coumadin dose [...] ER for further eval/treat. Reports called to [place] [facility]. Discussed treatment plan and patient voices understanding. Patient's questions answered appropriately. Medications and potential side effects were discussed and patient voices understanding. Return to the office as scheduled or as needed for worsening/no improvement. Jaymie Monae APRN.BOXING INSTRUCTOR Referring Provider: WANDA ZAVALETA [[id number]] Allergies As of Date: 06/21/2018 Noted Allergy Reaction BACTRIM (SULFAMETHOXAZOLE-TRIMETH*11/18/2008 14 - Other: See Comments Comments: sore throat LEVAQUIN (LEVOFLOXACIN) 06/10/2005 8 - GI Upset Date Reviewed: 06/21/2018 Reviewed by: Twila Adair Rack Pusher - Fully Assessed Reason for Visit: Hospital [...] 06/21/18 PROGRESS Observed: 06/21/2018 Status: COMPLETED Source: [place] 8:34 AM [facility] REPOSITORY [facility] ID: [id number] Author: Jaymie Joseph) Letha Service: (none) Author Type: Nurse Practitioner Type: Progress Notes Filed: 06/21/2018 9:47 AM Note Text: HPI/CC: Jovani Holman is a 67 year old male who presents to the office today for hospital follow-up. He was to [facility] following c/o right inguinal pain for 2 [...] Dr. Linares's office at 1 pm in [place] to have INR checked and coumadin dose [...] 01/11/2018 - Chronic obstructive pulmonary disease (COPD) ([facility]) - Coronary artery disease due to lipid [...] ER for further eval/treat. Reports called to [place] [facility]. Discussed treatment plan and patient voices understanding. Patient's questions answered appropriately. Medications and potential side effects were discussed and patient voices understanding. Return to the office as scheduled or as needed for worsening/no improvement. Jaymie Monae APRN.BOXING INSTRUCTOR BASIC METABOLIC PANL Collected: 06/19/2018 Status: F Source: [place] 1:40 PM [facility] REPOSITORY TYPE CODE TESTS RESULT OUT OF REFERENCE UNITS RANGE LAB GLU 74-99 mg/dL High Glucose 124 Result Comment: The [place] Diabetes Association (ADA) provides guidance for cutoff [...] Standards of Medical Care in Diabetes 2016, [place] [employer]. Diabetes Care. 2016.39(Suppl 1). LAB [...] actual GFR. Performed By: #### BMP #### [facility] [address] [place], [place] [address] PROTIME Collected: 06/19/2018 Status: F Source: [place] 1:[address] [facility] MAIN CAMPUS REPOSITORY TYPE CODE TESTS RESULT OUT OF REFERENCE UNITS RANGE LAB PSEC 9.7-13.0 sec Test PT sent to [facility]. Result Comment: Account Credited HIDE LAB INR 0.9-1.3 Test sent to PT INR [facility]. Result Comment: Account Credited HIDE PROTHROMBIN TIME W/INR Collected: 06/19/2018 Status: F Source: [place] 1:38 PM [facility] REPOSITORY TYPE CODE TESTS RESULT OUT OF RANGE REFERENCE UNITS LAB L300.4150 11.7-14.9 SECONDS High PROTIME 17.2 LAB L300.4200 Normal INR 1.4 Performed By: #### L300.3900 #### [facility] [address] [place], [address] CASE MANAGEM Observed: 06/16/2018 Status: COMPLETED Source: [place] 11:41 AM CLINIC OTHER CAMPUS REPOSITORY HNO ID: [id number] Author: Shana Amaro (Sw) Service: Care Management Author Type: Back Strip Machine Operator Type: Care Mgt Progress Note Filed: 06/16/2018 [...] ED to Hosp-Admission (Current) from 06/10/2018 in [facility] Follow-Up Appointment Specialty PCP Provider Name Herminio Linares MD Address [address] [facility], [facility] [address] Appointment Date 06/21/18 Appointment Time 8:40am Additonal [...] sent to PCP and Pooja PEREZ, Beverley Góemz NP, per pt request. SIGNATURE: MICHELLE López LSW PATIENT NAME: Jovani Holman DATE: June 16, 2018 MRN: [id number] TIME: 11:41 AM PAGER/CONTACT #: [phone] CNDS Observed: 06/16/2018 Status: COMPLETED Source: [place] 11:12 AM CLINIC OTHER CAMPUS REPOSITORY HNO ID: [id number] Author: Wanda Zavaleta Service: Hospital Medicine Author [...] Dr. Linares's office at 1 pm in [place] to have INR checked and coumadin dose [...] ED to Hosp-Admission (Current) from 06/10/[address] [facility] Medical Follow-Up Appointment Specialty PCP Provider Name Herminio Linares MD Address [address] [facility], [facility] [address] Appointment Date 06/21/18 Appointment Time 8:40am Additonal [...] patient. SIGNATURE: Wanda Zavaleta MD PAGER/CONTACT #: [phone] DATE: June 16, 2018 TIME: 11:12 AM CBC Collected: 06/16/2018 Status: F Source: [place] 5:13 AM CLINIC OTHER CAMPUS REPOSITORY TYPE CODE [...] MPV 10.9 Performed By: #### CBC #### [facility] [address] [facility] [phone] PROTIME Collected: 06/16/2018 Status: F Source: [place] 5:13 AM CLINIC OTHER CAMPUS REPOSITORY TYPE CODE TESTS RESULT OUT OF RANGE REFERENCE UNITS LAB PSEC 9.7-13.0 sec High PT Sec 30.1 LAB INR 0.9-1.3 High PT INR 3.2 Result Comment: Vitamin K Antagonist (VKA) Therapeutic Range: INR 2 to 3 (Target INR of 2.5) Note: For patients treated with VKA drugs, such as warfarin, the [place] [employer] 2012 Guideline recommends [...] Chest 2012, 141:7S-47S Andrzej RA, et al. [facility] 2017, 70: 252-289 Performed By: #### PT #### [facility] [address] [facility] [phone] CASE MANAGEM Observed: 06/15/2018 Status: COMPLETED Source: [place] 2:19 PM CLINIC OTHER CAMPUS REPOSITORY HNO ID: [id number] Author: Ambar (Shima) SHIMA Rider Service: Care Management Author Type: Registered Nurse Type: Care Mgt Progress Note Filed: 06/15/2018 2:25 PM Note Text: CARE MANAGEMENT PROGRESS NOTE SERVICE DATE: 06/15/2018 SERVICE TIME: 2:20 PM LOS: 5 days Needs Prior to Discharge: Other: See Comment (Set up Coumadin Clinic and MD to follow INR) Call placed to Dr. Linares's office in [place]; spoke to his nurse who will send him an urgent message to return call to Dr. Zavaleta about the Coumadin/INR follow-up; Nurse will call me back to schedule apptmt and plan of care for follow-up; will relay information to 2S high risk case manager. SIGNATURE: Ambar Rider RN [facility] PATIENT NAME: Jovani Holman DATE: June 15, 2018 MRN: [id number] TIME: 2:19 PM PAGER/CONTACT #: [phone] NUTRITION Observed: 06/15/2018 Status: COMPLETED Source: [place] 2:14 PM [facility] REPOSITORY HNO ID: [id number] Author: Lucy Mcdonald Service: Nutrition Therapy Author [...] min 2 units SIGNATURE: Lucy Mcdonald RD, LD PATIENT NAME: Jovani Holman DATE: June 15, 2018 MRN: [id number] TIME: 2:14 PM PAGER: PROGRESS Observed: 06/15/2018 Status: COMPLETED Source: [place] 12:13 PM [facility] REPOSITORY HNO ID: [id number] Author: Wanda Zavaleta Service: Hospital Medicine Author [...] 105 TIME: 4:24 PM Work Cell #: [phone] SERVICE DATE: 06/12/2018 SERVICE TIME: 4:24 PM Hospital Medicine/Primary Attending: Wanda Zavaleta MD NIGHT AND WEEKEND COVERAGE: Nights: Please contact pager [phone]. NURSING PROG Observed: 06/15/2018 Status: COMPLETED Source: [place] 6:54 AM CLINIC OTHER CAMPUS REPOSITORY HNO ID: [id number] Author: Abigail SilvaRn) SHIMA Arreguin Service: (none) Author Type: Registered Nurse Type: Nursing Progress Note Filed: 06/15/2018 6:55 AM Note Text: Nursing Progress Note Patient Name: Jovani Holman MRN: [id number] Patient [place] [id number]/[id number] Daily Note: 0652: Hospitalist paged regarding patients aPTT of >139 this AM. Waiting for paged to be returned. This note was completed by: Abigail Arreguin RN CBC Collected: 06/15/2018 Status: F Source: [place] 6:01 AM [facility] REPOSITORY TYPE CODE TESTS RESULT [...] MPV 11.1 Performed By: #### CBC #### [facility] [address] [place] [address] PROTIME Collected: 06/15/2018 Status: F Source: [place] 6:01 [facility] OTHER [place] REPOSITORY TYPE CODE TESTS RESULT OUT OF RANGE REFERENCE UNITS LAB PSEC 9.7-13.0 sec High PT Sec 31.3 LAB INR 0.9-1.3 High PT INR 3.3 Result Comment: Vitamin K Antagonist (VKA) Therapeutic Range: INR 2 to 3 (Target INR of 2.5) Note: For patients treated with VKA drugs, such as warfarin, the [place] [employer] 2012 Guideline recommends [...] Chest 2012, 141:7S-47S Andrzej RA, et al. [facility] 2017, 70: 252-289 Performed By: #### PT, PTTAC #### [facility] [address] [place] [address] PTT,ANTICOAG THERAPY Collected: 06/15/2018 Status: F Source: [place] 6:01 AM [facility] REPOSITORY TYPE CODE TESTS RESULT [...] laboratory APTT reagent in use throughout the [facility]. Called to and read back by: Sania Chicas [address] [place] [address] 06/15/18 0723 Dada Saba Performed By: #### PT, PTTAC #### [facility] [address] [place] [address] NURSING PROG Observed: 06/14/2018 Status: COMPLETED Source: [place] 8:30 AM [facility] REPOSITORY HNO ID: [id number] Author: Michelle Subramanian (Rn) SHIMA Alegre Service: (none) Author Type: Registered Nurse Type: Nursing Progress Note Filed: 06/14/2018 8:38 AM Note Text: Nursing Progress Note Patient Name: Jovani Holman MRN: [id number] Patient Location: [place] [id number] Daily Note: Dr. Zavaleta requested pharm. Input [...] RN PROGRESS Observed: 06/14/2018 Status: COMPLETED Source: [place] 8:29 AM CLINIC OTHER CAMPUS REPOSITORY O ID: [id number] Author: Wanda Zavaleta Service: Hospital Medicine Author [...] 105 TIME: 4:24 PM Work Cell #: [phone] SERVICE DATE: 06/12/2018 SERVICE TIME: 4:24 PM Hospital Medicine/Primary Attending: Wanda Zavaleta MD NIGHT AND WEEKEND COVERAGE: Nights: Please contact pager [phone]. CBC Collected: 06/14/2018 Status: F Source: [place] 5:[address] [facility] OTHER CAMPUS REPOSITORY TYPE CODE [...] MPV 11.3 Performed By: #### CBC #### [facility] [address] [facility] [phone] PROTIME Collected: 06/14/2018 Status: F Source: [place] 5:[address] [facility] OTHER CAMPUS REPOSITORY TYPE CODE TESTS RESULT OUT OF RANGE REFERENCE UNITS LAB PSEC 9.7-13.0 sec High PT Sec 21.9 LAB INR 0.9-1.3 High PT INR 2.3 Result Comment: Vitamin K Antagonist (VKA) Therapeutic Range: INR 2 to 3 (Target INR of 2.5) Note: For patients treated with VKA drugs, such as warfarin, the [place] [employer] 2012 Guideline recommends [...] Chest 2012, 141:7S-47S Andrzej RA, et al. [facility] 2017, 70: 252-289 Performed By: #### PT, PTTAC #### [facility] [address] [place] [address] PTT,ANTICOAG THERAPY Collected: 06/14/2018 Status: F Source: [place] 5:05 AM [facility] REPOSITORY TYPE CODE TESTS RESULT [...] laboratory APTT reagent in use throughout the [facility]. Performed By: #### PT, PTTAC #### [facility] [address] [place] [address] NURSING PROG Observed: 06/13/2018 Status: COMPLETED Source: [place] 8:03 PM [facility] REPOSITORY HNO ID: [id number] Author: Nicole (Rn) SHIMA Huddleston Service: Nursing Author Type: Registered Nurse Type: Nursing Progress Note Filed: 06/13/2018 8:15 PM Note Text: Nursing Progress Note Patient Name: Jovani Holman MRN: [id number] Patient Location: [facility]1/[id number] Daily Note:1400 Pt c/o exquisite tenderness of [...] RN PROGRESS Observed: 06/13/2018 Status: COMPLETED Source: [place] 2:24 PM CLINIC OTHER CAMPUS REPOSITORY HNO ID: [id number] Author: Wanda Zavaleta Service: Hospital Medicine Author [...] 105 TIME: 4:24 PM Work Cell #: [phone] SERVICE DATE: 06/12/2018 SERVICE TIME: 4:24 PM Hospital Medicine/Primary Attending: Wanda Zavaleta MD NIGHT AND WEEKEND COVERAGE: Nights: Please contact pager [phone]. CASE MANAGEM Observed: 06/13/2018 Status: COMPLETED Source: [place] 9:32 AM CLINIC OTHER CAMPUS REPOSITORY O ID: [id number] Author: Shana Amaro (Sw) Service: Care Management Author Type: Back Strip Machine Operator Type: Care Mgt Progress Note Filed: 06/13/2018 9:36 AM Note Text: CARE MANAGEMENT PROGRESS NOTE SERVICE DATE: 06/13/2018 SERVICE TIME: 9:32 AM LOS: 3 days Needs Prior to Discharge: To Be Determined William reviewed EMR. Pt bridging from Heparin to Coumadin. INR 1.3 today. Per attending note, will keep pt until therapeutic. Anticipate d/c home with no skilled needs. CM will continue to follow for d/c planning. SIGNATURE: MICHELLE López, RECORD SYSTEMS ANALYST PATIENT NAME: Jovani Holman DATE: June 13, 2018 MRN: [id number] TIME: 9:32 AM PAGER/CONTACT #: [phone] CBC Collected: 06/13/2018 Status: F Source: [place] 7:[address] [facility] OTHER [place] REPOSITORY TYPE CODE TESTS RESULT OUT OF [...] By: #### CBC, PT, PTTAC, BMP #### [facility] [address] [place] [address] PROTIME Collected: 06/13/2018 Status: F Source: [place] 7:04 AM [facility] REPOSITORY TYPE CODE TESTS RESULT OUT OF RANGE REFERENCE UNITS LAB PSEC 9.7-13.0 sec PT Sec 13.0 LAB INR 0.9-1.3 PT INR 1.3 Result Comment: Vitamin K Antagonist (VKA) Therapeutic Range: INR 2 to 3 (Target INR of 2.5) Note: For patients treated with VKA drugs, such as warfarin, the [place] [employer] 2012 Guideline recommends [...] Chest 2012, 141:7S-47S Andrzej MILLAN et al. [facility] 2017, 70: 252-289 Performed By: #### CBC, PT, PTTAC, BMP #### [facility] [address] [facility] [phone] PTT,ANTICOAG THERAPY Collected: 06/13/2018 Status: F Source: [place] 7:[address] [facility] OTHER CAMPUS REPOSITORY TYPE CODE [...] laboratory APTT reagent in use throughout the [facility]. Performed By: #### CBC, PT, PTTAC, BMP #### [facility] [address] [place] [address] BASIC METABOLIC PANL Collected: 06/13/2018 Status: F Source: [place] 7:04 [facility] REPOSITORY TYPE CODE TESTS RESULT OUT OF REFERENCE UNITS RANGE LAB GLU 74-99 mg/dL Glucose 92 Result Comment: The [place] Diabetes Association (ADA) provides guidance for cutoff [...] Standards of Medical Care in Diabetes 2016, [place] [employer]. Diabetes Care. 2016.39(Suppl 1). LAB [...] By: #### CBC, PT, PTTAC, BMP #### [facility] [address] [place] [address] PTT,ANTICOAG THERAPY Collected: 06/13/2018 Status: F Source: [place] 12:15 AM [facility] REPOSITORY TYPE CODE TESTS RESULT [...] laboratory APTT reagent in use throughout the [facility]. Performed By: #### PTTAC #### [facility] [address] [place] [address] PTT,ANTICOAG THERAPY Collected: 06/12/2018 Status: F Source: [place] 5:[address] [facility] OTHER [place] REPOSITORY TYPE CODE TESTS RESULT OUT OF [...] laboratory APTT reagent in use throughout the [facility]. Performed By: #### PTTAC #### [facility] [address] [facility] [phone] PROGRESS Observed: 06/12/2018 Status: COMPLETED Source: [place] 4:24 PM CLINIC OTHER CAMPUS REPOSITORY HNO ID: [id number] Author: Wanda Zavaleta Service: Hospital Medicine Author [...] RN SIGNATURE: Wanda Zavaleta MD PATIENT NAME: Jovain Holman DATE: June 12, 2018 MRN: [id number] TIME: 4:24 PM Work Cell #: [phone] SERVICE DATE: 06/12/2018 SERVICE TIME: 4:24 PM Hospital Medicine/Primary Attending: Wanda Zavaleta MD NIGHT AND WEEKEND COVERAGE: Nights: Please contact pager [phone]. PT ED Observed: 06/12/2018 Status: COMPLETED Source: [place] 2:30 PM CLINIC OTHER CAMPUS REPOSITORY O ID: [id number] Author: Rehan Hairston (Pharmacist) Service: Pharmacy Author [...] Outpatient Follow-up: To be determined Vladimir Zapata (Instructor Adjunct Surgical Technician) I concur with counseling provided by pharmacy laboratory technician. The progress note reflects my input and comments. Rehan Hairston, PharmD Clinical Pharmacist PTT,ANTICOAG THERAPY Collected: 06/12/2018 Status: F Source: [place] 11:16 AM CLINIC OTHER CAMPUS REPOSITORY TYPE CODE [...] laboratory APTT reagent in use throughout the [facility]. Performed By: #### PTTAC #### [facility] [address] [place] [address] CBC Collected: 06/12/2018 Status: F Source: [place] 4:[address] [facility] OTHER CAMPUS REPOSITORY TYPE CODE [...] By: #### CBC, PT, PTTAC, BMP #### [facility] [address] [place] [address] PROTIME Collected: 06/12/2018 Status: F Source: [place] 4:26 AM [facility] REPOSITORY TYPE CODE TESTS RESULT OUT OF RANGE REFERENCE UNITS LAB PSEC 9.7-13.0 sec PT Sec 11.4 LAB INR 0.9-1.3 PT INR 1.1 Result Comment: Vitamin K Antagonist (VKA) Therapeutic Range: INR 2 to 3 (Target INR of 2.5) Note: For patients treated with VKA drugs, such as warfarin, the [place] [employer] 2012 Guideline recommends [...] J[facility] 2017, 70: 252-289 Performed By: #### CBC, PT, PTTAC, BMP #### [facility] [address] [place] [address] PTT,ANTICOAG THERAPY Collected: 06/12/2018 Status: F Source: [place] 4:26 AM [facility] REPOSITORY TYPE CODE TESTS RESULT [...] laboratory APTT reagent in use throughout the [facility]. Performed By: #### CBC, PT, PTTAC, BMP #### [facility] [address] [place] [address] BASIC METABOLIC PANL Collected: 06/12/2018 Status: F Source: [place] 4:26 AM [facility] REPOSITORY TYPE CODE TESTS RESULT OUT OF REFERENCE UNITS RANGE LAB GLU 74-99 mg/dL Glucose 96 Result Comment: The [place] Diabetes Association (ADA) provides guidance for cutoff [...] Standards of Medical Care in Diabetes 2016, [place] [employer]. Diabetes Care. 2016.39(Suppl 1). LAB [...] By: #### CBC, PT, PTTAC, BMP #### [facility] [address] [place] [address] PTT,ANTICOAG THERAPY Collected: 06/11/2018 Status: F Source: [place] 8:11 PM [facility] REPOSITORY TYPE CODE TESTS RESULT [...] laboratory APTT reagent in use throughout the [facility]. Performed By: #### PTTAC #### [facility] [address] [place] [address] PROGRESS Observed: 06/11/2018 Status: COMPLETED Source: [place] 3:24 PM [facility] REPOSITORY HNO ID: [id number] Author: Radha Romero Service: Hospital Medicine Author [...] medication coverage and gets his medications from [place]. Needs to follow up with Dr Valentine. [...] 1700 vte non-pharmacologic prophylaxis - none indicated (ma,oh) 06/10/18 1700 vte current anticoag therapy (ma,ne) VTE Prophylaxis: on anticoagulation. Plan of care discussed with: Patient and Consultants: Dr valentine SIGNATURE: Radha Romero MD PATIENT NAME: Jovani Holman DATE: June 11, 2018 MRN: [id number] TIME: 3:24 PM PAGER/CONTACT #: [phone] PTT,ANTICOAG THERAPY Collected: 06/11/2018 Status: F Source: [place] 2:17 PM CLINIC OTHER CAMPUS REPOSITORY TYPE [...] laboratory APTT reagent in use throughout the [facility]. Performed By: #### PTTAC #### [facility] [address] [facility] [phone] CONSULT Observed: 06/11/2018 Status: COMPLETED Source: [place] 10:[address] [facility] OTHER CAMPUS REPOSITORY HNO ID: [id number] Author: Kusum Valentine Service: Vascular Surgery Author [...] following heavy lifting. He was sent to [facility] in [place] where he said they did a CT scan and checked his urine and was told he was ok.Upon [facility], he was hypotensive and referred to [place] [facility]. At [place], he was diagnosed with bilateral extensive DVT and PE. He was started on xarelto. Following his stay at [facility], he stated he continued to have right [...] mouth every evening. Disp: 30 tablet Rfl: 06/09/2018 at Unknown time hydrochlorothiazide (HYDRODIURIL, ESIDRIX) 25 mg tablet Take 1 tablet by mouth once daily. Disp: 30 tablet Rfl: 06/10/2018 at Unknown time omeprazole (PRILOSEC) 20 [...] 2018 MRN: [id number] TIME: 10:57 AM PAGER: [phone] PTT,ANTICOAG THERAPY Collected: 06/11/2018 Status: F Source: [place] 7:55 AM [facility] REPOSITORY TYPE CODE TESTS RESULT [...] laboratory APTT reagent in use throughout the [facility]. Performed By: #### PTTAC #### [facility] [address] [facility] [phone] BASIC METABOLIC PANL Collected: 06/11/2018 Status: F Source: [place] 1:[address] [facility] OTHER [place] REPOSITORY TYPE CODE TESTS RESULT OUT OF REFERENCE UNITS RANGE LAB GLU 74-99 mg/dL High Glucose 102 Result Comment: The [place] Diabetes Association (ADA) provides guidance for cutoff [...] Standards of Medical Care in Diabetes 2016, [place] [employer]. Diabetes Care. 2016.39(Suppl 1). LAB [...] Performed By: #### BMP #### [facility] [address] [place] [address] PTT,ANTICOAG THERAPY Collected: 06/11/2018 Status: F Source: [place] 1:[address] [facility] OTHER CAMPUS REPOSITORY TYPE CODE [...] laboratory APTT reagent in use throughout the [facility]. Performed By: #### PTTAC #### [facility] [address] [facility] [phone] CBC Collected: 06/11/2018 Status: F Source: [place] 1:[address] [facility] OTHER CAMPUS REPOSITORY TYPE CODE [...] MPV 11.1 Performed By: #### CBC #### [facility] [address] [place] [address] CBC Collected: 06/10/2018 Status: F Source: [place] 5:[address] [facility] OTHER [place] REPOSITORY TYPE CODE TESTS RESULT OUT OF [...] By: #### CBC, BMP, PT, PTT #### [facility] [address] [place] [address] BASIC METABOLIC PANL Collected: 06/10/2018 Status: F Source: [place] 5:[address] [facility] OTHER [place] REPOSITORY TYPE CODE TESTS RESULT OUT OF REFERENCE UNITS RANGE LAB GLU 74-99 mg/dL Glucose 92 Result Comment: The [place] Diabetes Association (ADA) provides guidance for cutoff [...] Standards of Medical Care in Diabetes 2016, [place] [employer]. Diabetes Care. 2016.39(Suppl 1). LAB [...] By: #### CBC, BMP, PT, PTT #### [facility] [address] [place] [address] PROTIME Collected: 06/10/2018 Status: F Source: [place] 5:23 PM CLINIC OTHER CAMPUS REPOSITORY TYPE CODE TESTS RESULT OUT OF RANGE REFERENCE UNITS LAB PSEC 9.7-13.0 sec PT Sec 12.0 LAB INR 0.9-1.3 PT INR 1.2 Result Comment: Vitamin K Antagonist (VKA) Therapeutic Range: INR 2 to 3 (Target INR of 2.5) Note: For patients treated with VKA drugs, such as warfarin, the [place] [employer] 2012 Guideline recommends [...] Chest 2012, 141:7S-47S Andrzej MILLAN, et al. [facility] 2017, 70: 252-289 Performed By: #### CBC, BMP, PT, PTT #### [facility] [address] [place] [address] APTT Collected: 06/10/2018 Status: F Source: [place] 5:[address] [facility] OTHER CAMPUS REPOSITORY TYPE CODE [...] laboratory APTT reagent in use throughout the [facility]. Rechecked Called to and read back by: Leah Chicas [address] [place] [address] 06/10/18 [place] Performed By: #### CBC, BMP, PT, PTT #### [facility] [address] [place] [address] PTT,ANTICOAG THERAPY Collected: 06/10/2018 Status: F Source: [place] 5:23 PM [facility] REPOSITORY TYPE CODE TESTS RESULT [...] laboratory APTT reagent in use throughout the [facility]. Rechecked Called to and read back by: Leah Chicas [address] [place] [address] 06/10/18 [place] Performed By: #### PTTAC #### [facility] [address] [facility] [phone] HISTORY PHYSICAL Observed: 06/10/2018 Status: COMPLETED Source: [place] 5:19 PM [facility] REPOSITORY HNO ID: [id number] Author: Radha Romero Service: Hospital Medicine Author Type: Physician Type: HANDP Filed: 06/11/2018 3:18 PM Note Text: SERVICE DATE: 06/10/2018 SERVICE TIME: 5:19 PM HOSPITAL MEDICINE HISTORY AND PHYSICAL PCP: Herminio Linares MD NIGHT AND WEEKEND COVERAGE: Nights: Please contact pager [phone]. SUBJECTIVE Chief Complaint: GROIN PAIN, CT positive [...] 1700 vte non-pharmacologic prophylaxis - none indicated (ma,oh) 06/10/18 1700 vte current anticoag therapy (ma,ne) VTE Prophylaxis: Contraindicated current emboli in lower extremeties SIGNATURE: Sal Clark APRN.BOXING INSTRUCTOR PATIENT NAME: Jovani Holman DATE: June 10, 2018 MRN: [id number] TIME: 5:19 PM ED NOTE Observed: 06/10/2018 Status: COMPLETED Source: [place] 1:10 PM CLINIC OTHER CAMPUS REPOSITORY HNO ID: [id number] Author: Jensen (Rn) SHIMA Brannon Service: (none) Author Type: Registered Nurse Type: ED Notes Filed: 06/10/2018 1:20 PM Note Text: Patient returned to the Emergency Department. CT CHEST W IVCON PE Observed: 06/10/2018 Status: F Source: [place] 1:[address] [facility] OTHER CAMPUS REPOSITORY * * *Final Report* * * DATE OF EXAM: Jun 10 2018 1:05PM [facility] 0540 - CT CHEST W IVCON PE [...] relate to interstitial lung disease and scarring. Cement Block Maker: ELIZABETH Transcribe Date/Time: Jun 10 2018 1:24P Dictated by : MANUEL BAILON DO This examination was interpreted and the report reviewed and electronically signed by: MANUEL BAILON DO on Jun 10 2018 1:43PM EST [id number] CASE MGT INIT Observed: 06/10/2018 Status: COMPLETED Source: [facility] 12:55 PM CLINIC OTHER CAMPUS REPOSITORY HNO ID: [id number] Author: Hilaria (Rn) SHIMA Ramon Service: (none) Author Type: Registered Nurse Type: Care Mgt Initial Assessment Filed: 06/10/2018 12:59 PM Note Text: CARE MANAGEMENT: ASSESSMENT AND DISCHARGE PLAN SERVICE DATE: 06/10/2018 SERVICE TIME: 12:55 PM PRIMARY CARE PHYSICIAN: Herminio Linares MD ADMISSION STATUS: Emergency Needs Prior to Discharge: To Be Determined MEDICAL: Patient/Sap Senior Developer Stated Goals: To have reduction in symptoms To return home to life as it was Health Insurance: MEDICARE A AND B [employer] [facility] Issues Impacting Discharge Plan: HX DVT/PE Last Admission Date: Previous admit date: 09/13/2010 Is this Within the Past 30 days? No Advance Directive: Current Advance Directive: Health Care Power of Aerial Lineman In Chart: No Machine Bookkeeper Attempted to Assist with AD Completion: Yes [...] None Has the Patient Been in a Fpc Facility in the Past 30 days? No SOCIAL: Living Arrangement: Home Lives With: Spouse Financial Resources: Retired Primary Contact: Extended Emergency Contact Information Primary Emergency Contact: Ashley Holman Address: [address] [place] [address] [facility] Mobile Relation: Spouse Secondary Emergency Contact: [...] 0 I feel financially burdened by my mfn-ll-ztscuh expenses for my prescription medication: Disagree mostly -0 Patient is categorized as low risk < 2 Are you interested in bedside delivery of your medications? No , uses [facility] in [place] Food Concerns: In the Last Month, Have [...] AANDOx4, resides with spouse in a 1SH. 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 OTHER CAMPUS REPOSITORY TYPE CODE [...] k/uL Abs Lymph 1.67 LAB AMONO % Amelia% 12.3 LAB AAMONO <0.87 k/uL Abs Amelia 0.82 LAB AEOS % Eosin% 1.2 LAB AAEOS <0.46 k/uL Abs Eosin 0.08 LAB ABASO % Baso% 0.3 LAB AABASO <0.11 k/uL Abs Baso <0.03 Performed By: #### CBCDIF, CMP #### [facility] [address] [place] [address] COMP METABOLIC PANEL Collected: 06/10/2018 Status: F Source: [place] 11:[address] [facility] OTHER CAMPUS REPOSITORY TYPE CODE [...] mg/dL Glucose High 114 Result Comment: The [place] Diabetes Association (ADA) provides guidance for cutoff [...] Standards of Medical Care in Diabetes 2016, [place] Diabetes Association. Diabetes Care. 2016.39(Suppl 1). LAB [...] By: #### CBCDIF, CMP #### [facility] [address] [place] [address] PROTIME Collected: 06/10/2018 Status: F Source: [place] 11:50 AM CLINIC OTHER CAMPUS REPOSITORY TYPE CODE TESTS RESULT OUT OF RANGE REFERENCE UNITS LAB PSEC 9.7-13.0 sec PT Sec 12.3 LAB INR 0.9-1.3 PT INR 1.2 Result Comment: Vitamin K Antagonist (VKA) Therapeutic Range: INR 2 to 3 (Target INR of 2.5) Note: For patients treated with VKA drugs, such as warfarin, the [place] College [employer]icians 2012 Guideline recommends [...] Chest 2012, 141:7S-47S Andrzej MILLAN et al. [facility] 2017, 70: 252-289 Performed By: #### PT, PTTAC #### [facility] [address] [place] [address] PTT,ANTICOAG THERAPY Collected: 06/10/2018 Status: F Source: [place] 11:50 AM [facility] REPOSITORY TYPE CODE TESTS RESULT [...] laboratory APTT reagent in use throughout the [facility]. Performed By: #### PT, PTTAC #### [facility] [address] [place] [address] ED PROV NOTE Observed: 06/10/2018 Status: COMPLETED Source: [place] 11:44 AM [facility] REPOSITORY HNO ID: [id number] Author: Crystal Green MD Service: (none) Author [...] discontinued on his own. Then, this past he was diagnosed with PE/DVT again and [...] (EXEP) 01/13/2018 EF= 64%, Mild LVH and Tucekr Dys, Mild LA enlargement and dialted ascending [...] Abs Lymph 1.67 1.00 - 4.00 k/uL Amelia% 12.3 % Abs Amelia 0.82 <0.87 k/uL Eosin% 1.2 % Abs [...] relate to interstitial lung disease and scarring. Cement Block Maker: PSCB Transcribe Date/Time: Jun 10 2018 1:24P Dictated by : MANUEL BAILON DO This examination was interpreted and the report reviewed and electronically signed by: MANUEL BAILON DO on Jun 10 2018 1:43PM EST Procedures ED Course / Clinical Impression Clinical Impressions as of Jun 10 141 Inferior vena cava thromboembolism (HCC) MDM / Disposition / Plan Nurses notes and old chart reviewed Patient here for abnormal CT which showed extensive clot to IVC and bilateral iliac veins on xarelto for one month D/w Dr. Valentine regarding above and recent history. She is ok with him staying in [facility] given the chronicity of symptoms. Start on [...] SIGNATURE: MD Crystal Ma MD 06/10/18 1221 rCystal Green MD 06/10/18 1415 ED NOTE Observed: 06/10/2018 Status: COMPLETED Source: [place] 11:[address] [facility] OTHER CAMPUS REPOSITORY HNO ID: [id number] Author: Elizabeth SilvaRn) SHIMA Sorto Service: (none) Author Type: Registered Nurse Type: ED Notes Filed: 06/10/2018 11:37 AM Note Text: Patient presents with right groin pain for past 2 weeks, had CT scan on which shows a blood clot. Patient has been taking Xeralto. PROGRESS Observed: 06/08/2018 Status: COMPLETED Source: [place] 12:09 PM [facility] REPOSITORY HNO ID: [id number] Author: Malgorzata Moise Ct Service: (none) Author [...] W IVCON Observed: 06/08/2018 Status: F Source: [place] 11:22 AM [facility] REPOSITORY * * *Final Report* * * DATE OF EXAM: Jun 08 2018 11:22AM [facility] 0530 - CT ABD/PEL W IVCON [...] with: Dr. Alas on 06/10/2018 at 09:55. Cement Block Maker: PSCB Transcribe Date/Time: Jun 10 2018 9:22A Dictated by : GALDINO JO MD This examination was interpreted and the report reviewed and electronically signed by: GALDINO JO MD on Jun 10 2018 10:01AM EST [id number] BASIC METABOLIC PANL Collected: 06/03/2018 Status: F Source: [place] 10:20 AM [facility] REPOSITORY TYPE CODE TESTS RESULT OUT OF REFERENCE UNITS RANGE LAB GLU 74-99 mg/dL Glucose 88 Result Comment: The [place] Diabetes Association (ADA) provides guidance for cutoff [...] Standards of Medical Care in Diabetes 2016, [place] Diabetes Association. Diabetes Care. 2016.39(Suppl 1). LAB [...] actual GFR. Performed By: #### BMP #### [facility] [address], [place] [address] CNCO Observed: 06/01/2018 Status: COMPLETED Source: [place] 12:[address] [facility] REPOSITORY Letter Text June 16, 2018 Jovani Holman [address] [facility] [address] [place], The nurses and staff of [facility] hope this letter finds you feeling well [...] free to contact me, Jessica Bloom RN ([phone]) or email me at, Additionally, you will receive a survey in [...] participation and thank you for choosing the [facility] for your health needs. Sincerely, Nurse Database Specialist: Jessica Bloom RN ([phone] Unit: [address] PROGRESS Observed: 05/31/2018 Status: COMPLETED Source: [place] 9:05 AM [facility] REPOSITORY HNO ID: [id number] Author: Karina Jarvis Service: (none) Author Type: Clinical Provider Trainer Type: Progress Notes Filed: 05/31/2018 9:06 AM [...] RDMS RVZenon May 31, 2018 9:05 AM US ABDOMEN LTD Observed: 05/31/2018 Status: F Source: [place] 9:03 AM [facility] REPOSITORY * * *Final Report* * * DATE OF EXAM: May 31 2018 9:03AM [facility] 1064 - US ABDOMEN LTD / PROCEDURE [...] free fluid in the RIGHT lower quadrant. Cement Block Maker: PSCChristos Transcribe Date/Time: May 31 2018 10:56A Dictated by : MANUEL BAILON DO This examination was interpreted and the report reviewed and electronically signed by: MANUEL BAILON DO on May 31 2018 10:57AM EST [id number] CBC AND DIFFERENTIAL Collected: 05/30/2018 Status: F Source: [place] 4:07 PM [facility] REPOSITORY TYPE CODE TESTS RESULT OUT [...] k/uL Abs Lymph 1.91 LAB AMONO % Amelia% 10.4 LAB AAMONO <0.87 k/uL Abs Amelia 0.61 LAB AEOS % Eosin% 2.4 LAB AAEOS <0.46 k/uL Abs Eosin 0.14 LAB ABASO % Baso% 0.5 LAB AABASO <0.11 k/uL Abs Baso 0.03 LAB AUNRBC 0 /100 WBC NRBCs 0.0 LAB ABNRBC <0.01 k/uL Absolute nRBC <0.01 LAB DTYP DTYPE Auto Diff Performed By: #### CBCDIF, CMP #### [facility] [address] [place] [id number] COMP METABOLIC PANEL Collected: 05/30/2018 Status: F Source: [place] 4:[address] [facility] REPOSITORY TYPE CODE TESTS RESULT OUT OF REFERENCE UNITS RANGE LAB TP 6.3-8.0 g/dL Protein, Total 7.0 LAB ALB 3.9-4.9 g/dL Albumin 4.2 LAB CA 8.5-10.2 mg/dL Calcium, Total 9.7 LAB TBIL 0.2-1.3 mg/dL Bilirubin, Total 0.6 LAB ALKP 36-108 U/L Alkaline Phosphatase 96 LAB AST 14-40 U/L AST 17 LAB GLU 74-99 mg/dL Glucose 99 Result Comment: The [place] Diabetes Association (ADA) provides guidance for cutoff [...] Standards of Medical Care in Diabetes 2016, [place] Diabetes [employer]. Diabetes Care. 2016.39(Suppl 1). LAB [...] GFR. Performed By: #### CBCDIF, CMP #### [facility] [address] [place], [place] [address] PROGRESS Observed: 05/30/2018 Status: COMPLETED Source: [place] 3:[address] [facility] REPOSITORY O ID: [id number] Author: Jeff Culp Service: (none) Author Type: Physician Policy Service Coordinator Type: Progress Notes Filed: 05/30/2018 4:01 PM [...] and when to seek medical attention. BLANCA CATOV Observed: 05/30/2018 Status: COMPLETED Source: [place] 3:00 PM [facility] REPOSITORY Office Visit (FAMPWS) JOVANI HOLMAN ([id number]) 1950 M Date Time Provider Department 05/30/18 3:00 PM BRIANA CULP) FAMPWS During your visit today, we recorded the following information about you: Temperature Pulse Respiration Blood pressure 97.5 degrees 102/minute 20/minute 126/86 Weight Height 95.3 kg 1.753 m ZARIA CULP PA-C 05/30/2018 4:01 PM Signed Chief Complaint Patient presents with: stomach swelling ARLINE [place] is a 67 year old male [...] [R10.2] Microscopic hematuria [R31.29] Order(s):UA DIP B/O [8793316] Order #: [id number] US ABDOMEN LTD [2653715] Order #: [id number] FUTURE CBC + DIFF [SQCBCDIF] Order #: [id number] FUTURE COMP METABOLIC PANEL [SQCMP] Order #: [id number] FUTURE URINE CULTURE [SQURCUL] Order #: [id number] Prescriptions as of 05/30/2018 Sig: RIVAROXABAN 15 [...] on 05/30/18 Observed: 05/30/2018 Status: F Source: [place] URINE CULTURE 3:43 AM [facility] REPOSITORY Sp. Request/Comment: - Specimen received in preservative Culture Result - No growth (<1,000 CFU/ml) Performed By: #### URCUL #### [facility] [address] [place], [place] [address] PROGRESS Observed: 05/11/2018 Status: COMPLETED Source: [place] 3:28 PM [facility] REPOSITORY HNO ID: [id number] Author: Kevin Roberts Service: (none) Author Type: Physician Type: Progress Notes Filed: 05/12/2018 8:08 AM Note Text: Hematology and Medical Oncology PATIENT NAME: Jovani Holman. CLINIC NO: [id number]. ATTENDING PHYSICIAN: Kevin Roberts MD. DATE OF [...] of severe back pain. He presented to [facility] emergency room because of dizziness and hypotension. He had abdominal pain and CT scan of his chest abdomen pelvis no acute abnormality. He was sent home in starting last Tuesday complaining of increased swelling of the lower extremity. He went to [facility] ED and evaluation for his back pain. [...] is here today to discuss indication for care home anticoagulation therapy. Mr. 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 No further workup or evaluation is needed at this time. Advoid aspirin or NSAIDs while taking Xarelto. I spent 45 minutes in the visit, with more than 50% of the total amku-ak-axsj time of the visit in counseling / coordination of care. The patient and family were allowed enough time to ask questions. All questions were answered to their satisfaction. Patient and family verbalized understanding of treatment plan and agreed to follow up with PCP. Kevin Roberts MD. ELECTRONICALLY SIGNED CNOVSP Observed: 05/11/2018 Status: COMPLETED Source: [place] 3:00 PM [facility] REPOSITORY Visit (SP) Office (LUANN) JOVANI HOLMAN ([id number]) 1950 M Date Time Provider Department 05/11/18 [...] Oncology PATIENT NAME: Jovani Holman. CLINIC NO: [id number]. ATTENDING PHYSICIAN: Kevin Roberts MD. DATE OF [...] of severe back pain. He presented to [facility] emergency room because of dizziness and hypotension. He had abdominal pain and CT scan of his chest abdomen pelvis no acute abnormality. He was sent home in starting last Tuesday complaining of increased swelling of the lower extremity. He went to [facility] ED and evaluation for his back pain. 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 Mr. 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 No further workup or evaluation is needed at this time. Advoid aspirin or NSAIDs while taking Xarelto. I spent 45 minutes in the visit, with more than 50% of the total xsqq-lz-ngai time of the visit in counseling / coordination of care. The patient and family were allowed enough time to ask questions. All questions were answered to their satisfaction. Patient and family verbalized understanding of treatment plan and agreed to follow up with PCP. Kevin Roberts MD. ELECTRONICALLY SIGNED Referring Provider: HERMINIO LINARES [[id number]] Allergies As of Date: 05/11/2018 Noted Allergy Reaction BACTRIM (SULFAMETHOXAZOLE-TRIMETH*11/18/2008 14 - Other: See Comments Comments: sore throat LEVAQUIN (LEVOFLOXACIN) 06/10/2005 8 - GI Upset Date Reviewed: 05/11/2018 Reviewed by: Argelia Dan, SHIMA, RN - Fully Assessed Reason for Visit: Consult [173] Primary Visit Diagnosis:Chronic obstructive pulmonary disease, unspecified COPD type (HCC) [J44.9] Other Visit Diagnoses:Presence of IVC filter [Z95.828] Acute deep vein thrombosis (DVT) of proximal vein of both lower extremities (HCC) [I82.4Y3] Level of Service: NEW PATIENT VISIT LEVEL 4 [51715] Follow-up and Disposition History Recorded Prescriptions as [...] 05/12/18 PROGRESS Observed: 05/10/2018 Status: COMPLETED Source: [place] 9:04 AM [facility] REPOSITORY O ID: [id number] Author: Herminio Linares Service: (none) Author Type: [...] his lower back. [facility] at the [facility] for a routine visit on 05/03/2018 and had hypotension and a syncopal episode. Patient was taken to [facility] and felt the syncope was related [...] feeling well. Patient seen in office by PAINTER ASSISTANT and BP was low. Patient had been using a walker dueto concern he may pass out. Patient was directed to [facility]. In ER there on 05/05/2018 pulse ox [...] - CONSULT TO CARDIOLOGY: Dr. Richards with [facility] 6. Thoracic aortic aneurysm without rupture [...] MD CNOV Observed: 05/10/2018 Status: COMPLETED Source: [place] 9:00 AM [facility] RIVERJOVANI KEARNEY ([id number]) 1950 M Date Time Provider Department 05/10/18 9:00 AM [facility] During your visit today, we recorded the [...] his lower back. Was seen at the [facility] for a routine visit on 05/03/2018 and had hypotension and a syncopal episode. Patient was taken to [facility] and felt the syncope was related [...] feeling well. Patient seen in office by PAINTER ASSISTANT and BP was low. Patient had been using a walker dueto concern he may pass out. Patient was directed to [facility]. In ER there on 05/05/2018 pulse ox [...] - CONSULT TO CARDIOLOGY: Dr. Richards with [facility] 6. Thoracic aortic aneurysm without rupture [...] Reason for Visit: Hospital F/U [57] Cmt: [facility] Bilateral DVT, Right PE, hypotension, avcute lumbar [...] mouth twice daily.Disp: Rfl: CONSULT TO CARDIOLOGY [9002] Order #: [id number]: 1 CONSULT TO VASCULAR SURGERY [9068] Order #: [id number]: 1 CONSULT TO PAIN MGT ANESTHESIA [757610] Order #: [id number]: 1 CONSULT TO HEMATOLOGY [6304] Order #: [id number]: 1 predniSONE (DELTASONE) 20 mg tablet3 tabs [...] LEAD ELECTROCARDIOGRAM Observed: 05/09/2018 Status: F Source: [place] 1:42 PM [facility] REPOSITORY [facility] Cardiovascular Services [address] [place], [place] [address] [address] 12 Lead EKG 05/05/18 1155 MR#: [id number] Acct: [id number] Name: JOVANI HOLMAN Rep #: [id number] : 1950 67 From: Manuel Rajan MD Attending Dr: Nancy Berry MD Status: DIS IN Ordering Dr: Lizzy De La Vega MD Date: 05/05/18 Location: [facility] Sex: M C Admitted: 05/06/18 Test Reason [...] Abnormal ECG Confirmed by MANUEL RAJAN ([id number]), continuity editor RAY CHADWICK ([id number]) on 05/09/2018 1:41:45 PM Referred By: JACLYN Confirmed By:MANUEL RAJAN 05/09/18 1341 Date Manuel Rajan MD CC: Herminio Linares MD; Lizzy De La Vega MD; Nancy Berry MD Signed PROGRESS Observed: 05/09/2018 Status: COMPLETED Source: [place] 8:37 AM [facility] REPOSITORY HNO ID: [id number] Author: Shelly Holland Service: (none) Author Type: Nurse Practitioner Type: Progress Notes Filed: 05/09/2018 8:48 AM Note Text: 05/09/2018 Patient presents with: ER F/U: [facility] after [facility] where he passed [...] to pass out as the providers at [facility] told him. He and his state that [...] diagnosis) - report called to Janel at [facility] including past history of thoracic aortic aneurysm and other significant history related to current symptoms - pt encouraged to follow up with PCP after hospital stay - requested records from [facility] 2. Generalized weakness - ICD9: 780.79, ICD10: R53.1 3. Fatigue, unspecified type - ICD9: 780.79, ICD10: R53.83 4. Generalized pain - ICD9: 780.96, ICD10: R52 5. Lightheaded - ICD9: 780.4, ICD10: R42 6. Hypotension, unspecified hypotension type - ICD9: 458.9, ICD10: I95.9 Shelly Holland APRN.BOXING INSTRUCTOR DISCHARGE SUMMARY Observed: 05/07/2018 Status: F Source: [place] 12:51 PM [facility] REPOSITORY [facility] Medical Records Department [address] [place] [address] Discharge Summary 05/07/18 1010 MR#: [id number] Acct: [id number] Name: RIVERJOVANI E Rep #: [id number] : 1950 67 From: Karina Swift NP-C PCP: Herminio Linares MD Status: DIS IN Y Location: [facility] [id number] <Karina Swift - Last Filed: 05/07/18 11:00> [...] Xarelto 20 mg daily. Patient follows with [facility] and will obtain further prescriptions through them. Follow-up with primary care physician in 2-3 days. 2. Hypotension, dizziness-resolved. Recent syncopal episode in which patient underwent workup at [facility] included CT of abdomen pelvis [...] negative for ischemia which was completed at [facility]. LVEF 66%. Continue aspirin, statin. 4. [...] in: 1 Week Please Follow Up With: [facility] When: This week, 2-3 days Disposition: Home Minutes spent on discharge:: 35 Patient Condition:: Stable Medical Necessity - Tobacco Use Smoking Status: Former smoker Tobacco Use: Cigarettes Meaningful Use Info Meaningful Use Diagnoses (Choose all that apply): VTE - VTE Anticoag overlap given w/in hospital stay or rx'd at dc?: Yes Pt receive overlap for 5 days?: Yes <KristiNancydeysi Frank - Last Filed: 05/07/18 12:50> Discharge Date [...] subsequently resolved. He had been seen at [facility] in [place] on 05/03/[address] PE [...] daily. Patient states care doctor at the within 1 week to get further scripts [...] Yes Code Visit Inpatient E AND M: [id number] Disch Hosp 05/07/18 1101 <Electronically signed by Karina HOYOS> Date Karina HOYOS 05/07/18 1251<Electronically signed by Nancy Berry MD> Cosigner Signature (if applicable): Date Nancy Berry MD CC: SOHA Swift; [facility]; Herminio Linares MD; Nancy Berry MD Signed DISCHARGE INSTRUCTION Observed: 05/07/2018 Status: F Source: [place] 10:55 AM [facility] REPOSITORY [facility] Medical Records Department [address] [place] [address] Instructions for Home/Discharge Instructions 05/07/18 1002 MR#: [id number] Acct: [id number] Name: JOVANI HOLMAN Rep #: [id number] : 1950 67 From: Karina HOYOS PCP: [...] appointment, if applicable. Please Follow Up With: [facility] When: This week, 2-3 days Proposed Discharge Date: 05/07/18 05/07/18 1055 <Electronically signed by Karina HOYOS> Date Karina HOYOS CC: Herminio Linares MD CBC-COMPLETE BLOOD CNT Collected: 05/07/2018 Status: F Source: [place] NO DIFF 5:08 AM [facility] REPOSITORY TYPE CODE TESTS RESULT OUT OF [...] MPV 11.6 Performed By: #### L100.0500 #### [facility] [address] [place], [address] BASIC METABOLIC Collected: 05/07/2018 Status: F Source: [place] PROFILE (BMP) 5:08 AM [facility] REPOSITORY TYPE CODE TESTS RESULT OUT OF [...] GAP 10 Performed By: #### L500.2500 #### [facility] [address] [place], [address] ABDOMEN SINGLE VIEW Observed: 05/06/2018 Status: F Source: [place] 1:34 PM [facility] REPOSITORY [facility] Imaging Services [address] [address] Abdomen Single View MR#: [id number] Acct: [id number] Name: JOVANI HOLMAN Rep #: [id number] : 1950 M 67 From: Mayra Brown MD PCP: Herminio Linares MD Status: ADM IN Study: Abdomen Single View Date of Exam: 05/06/18 Exam# [id number] Ordering Dr: Karina Swift STUDY: X-RAY - ABDOMEN/PELVIS REASON FOR EXAM: [...] EDT Tel , Service support , CC: PAINTER ASSISTANT-Moris Swift; Herminio Linares MD Cement Block Maker: Signed CTA CHEST W/WO Observed: 05/06/2018 Status: F Source: [place] CONTRAST 9:11 AM [facility] REPOSITORY [facility] Imaging Services [address] [place] [address] CTA Chest W/WO Contrast MR#: [id number] Acct: [id number] Name: JOVANI HOLMAN Rep #: [id number] : 1950 M 67 From: Houston Felix MD PCP: Herminio Linares MD Status: ADM WANG Study: CTA Chest W/WO Contrast Date of Exam: 05/06/18 Exam# [id number] Ordering Dr: Jamison, Karina PAINTER ASSISTANT-C STUDY: CTA CHEST REASON FOR EXAM: Male, [...] , CC: SOHA Swift; Herminio Linares MD Cement Block Maker: Signed CBC W/DIFF, AUTOMATED Collected: 05/06/2018 Status: F Source: [place] 5:14 AM [facility] REPOSITORY TYPE CODE TESTS RESULT OUT OF [...] Lymph 1.80 Performed By: #### L100.0100 #### [facility] [address] [facility]. [place], [place], [id number] COMPREHENSIVE METABOLIC Collected: 05/06/2018 Status: F Source: [facility] 5:14 AM [facility] REPOSITORY TYPE CODE TESTS RESULT OUT OF [...] GAP 8 Performed By: #### L500.4050 #### [facility] [address] [place], [address] PSA,TOTAL- DIAGNOSTIC Collected: 05/06/2018 Status: F Source: [facility] 5:14 AM [facility] REPOSITORY TYPE CODE TESTS RESULT OUT OF RANGE REFERENCE UNITS LAB L501.9940 0.0-4.0 ng/mL PSA, Normal DIAGNOSTIC 1.11 Result Comment: This test was performed using the TPSA assay method for the [employer] chemistry system. Values obtained with different assay methods cannot be used interchangably. When changing PSA assays in the course of monitoring a patient, additional sequential testing should be carried out to confirm baseline values. Performed By: #### L501.9940 #### [facility] [address] [place], [address] HISTORY AND PHYSICAL Observed: 05/05/2018 Status: F Source: [place] EXAM 4:46 PM [facility] REPOSITORY [facility] Medical Records Department [address] [place] [address] History and Physical 05/05/18 1348 MR#: [id number] Acct: [id number] Name: JOVANI HOLMAN Rep #: [id number] : 1950 67 From: Karina Swift PAINTER ASSISTANTErmias PCP: Herminio Linares MD Status: ADM WANG Y Location: [place] [address] <Karina Swift - Last Filed: 05/05/18 15:43> [...] time. He sought medical attention at the [facility] regarding his back pain and was noted to have a syncopal episode during office visit. He was transferred to [facility] at that time. He states he was [...] 1. Recent syncope, recurrent dizziness-recent workup at [facility] included CT of abdomen pelvis [...] negative for ischemia which was completed at [facility]. LVEF 66%. Continue aspirin, statin. 4. [...] with an episode of syncope at his [facility] PCP office and was sent to [facility] who felt this was vasovagal. He [...] VS Code Visit Inpatient E AND M: [id number] Init Hosp L3 05/05/18 1543 <Electronically signed by Karina HOYOS> Date Karina HOYOS 05/05/18 1646<Electronically signed by Gabriel Helton MD> Cosigner Signature: Date (if applicable) Gabriel Helton MD CC: PAINTER ASSISTANT-C Karina Swift; Herminio Linares MD; Gabriel Helton MD Signed VENOUS DUPLEX LOWER Observed: 05/05/2018 Status: F Source: [place] EXTREMITY 4:21 PM [facility] REPOSITORY [facility] Cardiovascular Services [address] [place] [address] Venous Duplex US - Fei Extrem 05/05/18 1538 MR#: [id number] Acct: [id number] Name: JOVANI HOLMAN Rep #: [id number] : 1950 67 From: Vikas Sauceda MD Attending Dr: Gabriel Helton MD Status: ADM WANG Ordering Dr: Karina Swift Date: 05/05/18 Location: U Sex: M C Admitted: 05/05/18 Reason For [...] 05/05/18 1620 Date Vikas Sauceda MD CC: SOHA Swift; Herminio Linares MD; Gabriel Helton MD Date Dictated: 05/05/18 1538 Date Transcribed: 05/05/18 162 Cement Block Maker: Signed EMERGENCY DEPARTMENT Observed: 05/05/2018 Status: F Source: [place] SUMMARY 4:10 PM [facility] REPOSITORY [facility] Medical Records Department [address] [place] [address] Emergency Department Summary 05/05/18 1320 MR#: [id number] Acct: [id number] Name: JOVANI HOLMAN Rep #: [id number] : 1950 67 From: Lizzy De La Vega MD PCP: Herminio Linares MD Status: ADM WANG - ER Visit Summary Date of Service: 05/05/18 Chief Complaint: Hypotension, syncope History of Present Illness: The patient is a 67 M who developed back pain after lifting a pump last weekend. He was seen at the [facility] and had a syncopal event earlier this week. It was felt to likely be vasovagal syncope secondary to pain. He was sent to [facility] ED for evaluation. Labs were performed and [...] Hypotension, improved This note was generated with [employer] dictation software. It may contain incorrect words, [...] problems, contact your Primary Care Provider. Call [facility] ([phone]) or report to the closest Emergency Room. Call 911 if necessary. 05/05/18 1610 <Electronically signed by Lizzy De La Vega MD> Date Lizzy De La Vega MD Cosigner Signature (If Indicated): Date CC: Herminio Linares MD SPINE LUMBAR Observed: 05/05/2018 Status: F Source: [place] (ROUTINE) 3:42 PM [facility] REPOSITORY [facility] Imaging Services [address] [place] [address] Spine Lumbar (Routine) MR#: [id number] Acct: [id number] Name: JOVANI HOLMAN Rep #: [id number] : 1950 M 67 From: Mayra Brown MD PCP: Herminio Linares MD Status: ADM WANG Study: Spine Lumbar (Routine) Date of Exam: 05/05/18 Exam# [id number] Ordering Dr: Karina Swift PAINTER ASSISTANT-C STUDY: MRI LUMBAR SPINE WITHOUT CONTRAST REASON [...] , CC: SOHA Swift; Herminio Linares MD Cement Block Maker: Signed TROPONIN-I Collected: 05/05/2018 Status: F Source: [place] 3:35 PM [facility] REPOSITORY Order Comment: Comments: add on admission lab Comments: add on admission lab Comments: Now X1 TYPE CODE TESTS RESULT OUT OF RANGE REFERENCE UNITS LAB L501.4010 <0.045 ng/mL Normal < 0.015 TROPONIN-I Result Comment: TROPONIN-I EXPECTED VALUES <0.045 Negative 0.045 - 0.590 Consistent with Cardiac Damage > OR = 0.600 Critical Value Not every elevated troponin is indicative of [place]. These values should be used with clinical judgement in examining the patient's clinical picture for diagnosis. To establish a diagnosis of [place] versus myocardial injury, there must be a demonstrated rise and/or fall in the troponin values, in addition to ischemic symptoms, EKG changes, new regional wall motion abnormality, and/or angiographical evidence. PLEASE NOTE: REFERENCE RANGES EDITED 18 Performed By: #### L501.4010, L501.5200, L501.9520 #### [facility] [address] [place], [address] MAGNESIUM Collected: 05/05/2018 Status: F Source: [place] 3:35 PM [facility] REPOSITORY Order Comment: Comments: add on admission lab Comments: add on admission lab Comments: Now X1 TYPE CODE TESTS RESULT OUT OF RANGE REFERENCE UNITS LAB L501.5200 1.6-2.6 mg/dL Normal MG 2.1 Performed By: #### L501.4010, L501.5200, L501.9520 #### [facility] [address] [place], [address] THYROID STIM HORMONE Collected: 05/05/2018 Status: F Source: [place] (TSH) 3:35 PM [facility] REPOSITORY Order Comment: Comments: add on admission lab Comments: add on admission lab Comments: Now X1 TYPE CODE TESTS RESULT OUT OF RANGE REFERENCE UNITS LAB L501.9520 0.358-3.74 uIU/mL Normal TSH 0.44 Performed By: #### L501.4010, L501.5200, L501.9520 #### [facility] [address] [facility] [place], [place], [address] URINALYSIS, COMPLETE Collected: 05/05/2018 Status: F Source: [place] 3:25 PM [facility] REPOSITORY Order Comment: Has pt arrived? Y [...] URINE SEEN Performed By: #### L400.0001 #### [facility] [address] [facility] [place], [address] Observed: 05/05/2018 Status: F Source: [place] CULTURE, URINE 3:25 PM [facility] REPOSITORY Send Results To: PCU Has pt arrived? Y Urine Culture Culture exhibits no growth. Performed By: #### M100.0650 #### [facility] [address] [facility] [place], [address] CBC W/DIFF, AUTOMATED Collected: 05/05/2018 Status: F Source: [place] 11:57 AM [facility] REPOSITORY TYPE CODE TESTS RESULT OUT OF [...] Lymph 1.20 Performed By: #### L100.0100 #### [facility] [address] [place], [place], [address] BASIC METABOLIC Collected: 05/05/2018 Status: F Source: [place] PROFILE (BMP) 11:57 AM [facility] REPOSITORY TYPE CODE TESTS RESULT OUT OF [...] 9 Performed By: #### L500.2500, L501.4010 #### [facility] [address] [facility] [place], [address] TROPONIN-I Collected: 05/05/2018 Status: F Source: [place] 11:57 AM [facility] REPOSITORY TYPE CODE TESTS RESULT OUT OF RANGE REFERENCE UNITS LAB L501.4010 <0.045 ng/mL Normal < 0.015 TROPONIN-I Result Comment: TROPONIN-I EXPECTED VALUES <0.045 Negative 0.045 - 0.590 Consistent with Cardiac Damage > OR = 0.600 Critical Value Not every elevated troponin is indicative of [place]. These values should be used with clinical judgement in examining the patient's clinical picture for diagnosis. To establish a diagnosis of [place] versus myocardial injury, there must be a demonstrated rise and/or fall in the troponin values, in addition to ischemic symptoms, EKG changes, new regional wall motion abnormality, and/or angiographical evidence. PLEASE NOTE: REFERENCE RANGES EDITED 18 Performed By: #### L500.2500, L501.4010 #### [facility] [address] [place], [address] CHEST 1 VIEW Observed: 05/05/2018 Status: F Source: [place] (PORTABLE) 11:41 AM [facility] REPOSITORY [facility] Imaging Services [address] [place] [address] Chest 1 View (Portable) MR#: [id number] Acct: [id number] Name: JOVANI HOLMAN Rep #: [id number] : 1950 M 67 From: Leonel Shukla MD PCP: Herminio Linares MD Status: REG ER Study: Chest 1 View (Portable) Date of Exam: 05/05/18 Exam# [id number] Ordering Dr: Lizzy De La Vega MD [...] ultrasound may be useful. Electronically Signed: Rikki Shukal MD at 12:22 EDT , Service support , CC: Herminio Linares MD; Lizzy De La Vega MD Cement Block Maker: Signed ELIAZAR Observed: 05/05/2018 Status: COMPLETED Source: [place] 10:20 AM [facility] RE[facility]OV[facility]OL[facility] ([id number]) 1950 M Date Time Provider Department 05/05/18 10:20 AM SHELLY HOLLAND (CORNELL) KEN During your visit today, we recorded the following information about you: Pulse Respiration Blood pressure Weight 84/minute 16/minute 106/68 94.8 kg Shelly Holalnd APRN.CNP 05/09/2018 8:48 AM Signed 05/09/2018 Patient presents with: ER F/U: [facility] [...] to pass out as the providers at [facility] told him. He and his state that [...] diagnosis) - report called to Janel at [facility] including past history of thoracic aortic aneurysm and other significant history related to current symptoms - pt encouraged to follow up with PCP after hospital stay - requested records from [facility] ER 2. Generalized weakness - ICD9: 780.79, ICD10: R53.1 3. Fatigue, unspecified type - ICD9: 780.79, ICD10: R53.83 4. Generalized pain - ICD9: 780.96, ICD10: R52 5. Lightheaded - ICD9: 780.4, ICD10: R42 6. Hypotension, unspecified hypotension type - ICD9: 458.9, ICD10: I95.9 Shelly Holland APRN.BOXING INSTRUCTOR Referring Provider: SELF [200] Allergies As of Date: 05/05/2018 Noted Allergy Reaction BACTRIM (SULFAMETHOXAZOLE-TRIMETH*11/18/2008 14 - Other: See Comments Comments: sore throat LEVAQUIN (LEVOFLOXACIN) 06/10/2005 8 - GI Upset Date Reviewed: 05/05/2018 Reviewed by: Ryan Hillman LPN - Fully Assessed Reason for Visit: ER F/U [41] Cmt: [facility] after [facility] check[facility] where he passed [...] 81 MG TABLET,DELAYED RELEASE >> Ryan Hillman LPN 05/05/2018 10:23 AM >> RYAN HILLMAN LPN TueMay 05, 2018 10:23 AM Takes 1/2 tablet daily. OSTEO BI-FLEX ORAL >> Ryan Hillman LPN 05/05/2018 10:23 AM >> RYAN HILLMAN LPN TueMay 05, 2018 10:23 AM Not taking [...] ED DOC Observed: 05/03/2018 Status: UNK Source: [facility] 2:50 PM [facility] REPOSITORY This is a preliminary report only, as the practitioner review and authentication has not occurred. ED DOC Observed: 05/03/2018 Status: UNK Source: [facility] 2:50 PM [facility] REPOSITORY PHYSICIAN ASSESSMENT RECORDS : FlexChartData Event Time: 05/03/2018 12:30 Status: Signed [facility] Jovani Holman [[id number]] Attending Physician / / 1950 Chart (V2b) Chart created at 05/03/2018 12:19 by Corky Grande Chart closed at 05/03/2018 14:41 Entry in Emergency Department at 05/03/2018 11:51 Patient Name: Jovani Holman Record Number: [id number] Date: 05/03/2018 12:19 Entered Department at: 05/03/2018 11:51 Patient Seen at: 05/03/2018 11:59 Historian: Patient Chief Complaint:BACK PAIN WHILE AT CLINIC, [facility] STATES BECAME UNRESPONSIVE AFTER ARRIVAL, PT CURRENTLY SLOW TO RESPOND, ABLE TO ANSWER ALL QUESTIONS APPROPRIATELY. Triage Note reviewed and Initial Vital Signs reviewed. Temperature: 97.5 F (36.4 C). Pulse: 62. Respiratory Rate: 16. Blood-pressure: 137/71. Oxygen Saturation: 96%. History of Present Illness: 67-Year-old male brought in by EMS. On-line med control provided by [facility]. EMS report reviewed by me. Patient has been dealing with low back pain after straining his back 5 days ago trying to lift the pump. Patient states that the pain causes him to get lightheaded and feel like passing out. As she was sitting down in a chair waiting to be seen at the [facility], pain got worse again. As the pain worsened, states he [facility] PATIENT NAME: JOVANI HOLMAN [facility] [address] MEDICAL REC #: [id number] [place] [address] EMERGENCY DEPARTMENT CHART EMERGENCY DEPARTMENT PHYSICIAN started [...] BPH Chronic back pain Past Surgical/Procedure History: [facility] PATIENT NAME: JOVANI HOLMAN [facility] [address] MEDICAL REC #: [id number] [place] [address] EMERGENCY DEPARTMENT CHART EMERGENCY DEPARTMENT PHYSICIAN Back [...] and 5/5 UE/LE Strength Skin: No rash, [facility] PATIENT NAME: JOVANI HOLMAN [facility] [address] MEDICAL REC #: [id number] [place] [address] EMERGENCY DEPARTMENT CHART EMERGENCY DEPARTMENT PHYSICIAN No [...] +---------+---------+---------+---------+-------- + + +---------+---------+---------+---------+-------- + + +---------+---------+---------+---------+-------- [facility] PATIENT NAME: JOVANI HOLMAN [facility] [address] MEDICAL REC #: [id number] [place] [address] EMERGENCY DEPARTMENT CHART EMERGENCY DEPARTMENT PHYSICIAN + HYALINE CAST: 73 /Lpf; MUCUS: 4+; SQUAMOUS EPIS: 0 Epi/Hpf; UA BACTERIA: Trace /Hpf TROPONIN I POC, information as of 05/03/2018, 12:08 pm POC Trop-I: 0.00 Cardiogram: Interpreted by me. Interpretation: Sinus bradycardia without acute ST elevation or depression. Nonspecific T-wave changes noted. No prolongation of the NH interval or QRS complex seen. No old [...] show no acute abnormalities. There is a [facility] PATIENT NAME: JOVANI HOLMAN [facility] [address] MEDICAL REC #: [id number] [place] [id number] EMERGENCY DEPARTMENT CHART EMERGENCY DEPARTMENT PHYSICIAN calcified [...] is shown. There are small scattered retroperitoneal [facility] PATIENT NAME: JOVANI HOLMAN Dr. [address] MEDICAL REC #: [id number] [place] [address] EMERGENCY DEPARTMENT CHART EMERGENCY DEPARTMENT PHYSICIAN lymph [...] states that this happened after he was [facility] PATIENT NAME: JOVANI HOLMAN Dr. [address] MEDICAL REC #: [id number] [place] [address] EMERGENCY DEPARTMENT CHART EMERGENCY DEPARTMENT PHYSICIAN experiencing severe pain in his back. Again he strained his back over the weekend. I feel he had a vasovagal episode secondary to pain. He was medicated here discomfort has improved. I do not feel that he had any type of dysrhythmic event and I do not feel he requires admission in the hospital. By [employer] and [place] syncope rules, he was at low risk for cardiac dysrhythmia. Patient will be placed on a anti-inflammatory as well as a muscle relaxant. Referred back to the [facility] clinic for follow-up. Patient discharged home stable condition Additional Information: Discussed Results, Diagnosis and Follow-Up with Patient. Clinical Impression: 1. Vasovagal syncope 2. Low back strain Disposition: Discharged *Home. Condition: Stable MSE completed. I was the primary ED attending.. : Discharge Report Event Time: 05/03/2018 14:42 ===DISCHARGE REPORT=== : FlexChartData Event Time: 05/03/2018 12:30 : Discharge Report Event Time: 05/03/2018 14:42 Status: Draft Reasons to Return to the ER: You must return to the ER for any new, worsening or changing symptoms, or if you feel more ill or sick in any way. This is the most important thing to remember. Follow-up: [facility] PATIENT NAME: JOVANI HOLMAN [facility] [address] MEDICAL REC #: [id number] [place] [address] EMERGENCY DEPARTMENT CHART EMERGENCY DEPARTMENT PHYSICIAN The [...] prescriptions filled. EKG and Radiology Results: A regional office coordinator or radiologist will review any EKG or [...] as needed for back discomfort. Continue any [facility] PATIENT NAME: JOVANI HOLMAN [address] [facility] [address] MEDICAL REC #: [id number] [place] [address] EMERGENCY DEPARTMENT CHART EMERGENCY DEPARTMENT PHYSICIAN other present medication as directed. [facility]. Your neck or back pain may [...] Minor pain may also be treated with hdrj-lxr-nndhdpu ibuprofen (if you are not ) or acetaminophen; you should avoid aspirin unless you are taking this medication for another reason7) You must use all of your regular medications plus all the [facility] PATIENT NAME: JOVANI HOLMAN [facility] [address] MEDICAL REC #: [id number] [place] [address] EMERGENCY DEPARTMENT CHART EMERGENCY DEPARTMENT PHYSICIAN medications [...] color in an arm or leg) REFERRAL [facility] (Medicine/Mental Health/Podiatry/Ophthalmology) , Address: [address] [place] [address], , fax: Please call the above number [...] few days after your visit, you will [facility] PATIENT NAME: JOVANI HOLMAN [facility] [address] MEDICAL REC #: [id number] [place] [id number] EMERGENCY DEPARTMENT CHART EMERGENCY DEPARTMENT PHYSICIAN receive [...] indicates consent for Case Management to contact [facility] providers in an effort to meet your ongoing healthcare needs. This will allow forcontinuity of care once you leave the Emergency Department. This exchange of informationwill include, but not be limited to, disclosure of your patient information and possible release of records. 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[employer] Patient: JOVANI HOLMAN Sex: M : 1950 Age: 67 yr Account No: [id number] Registration Date: 11:49 05/03/2018 Address: [address] [place] [address] Address: [place] [address] REGISTRATION ED Number: [id number] Marital Status: M Financial Class: MPPS TRIAGE [facility] PATIENT NAME: JOVANI [facility]OLMAN [address] [facility] [address] MEDICAL REC #: [id number] [place] [address] EMERGENCY DEPARTMENT CHART EMERGENCY DEPARTMENT PHYSICIAN Priority: 3 - Urgent Complaint: Back Pain, Non Traumatic Stated Complaint: BACK PAIN WHILE AT CLINIC, AR STATES BECAME UNRESPONSIVE AFTER ARRIVAL, PT CURRENTLY SLOW TO RESPOND, ABLE TO ANSWER ALL QUESTIONS APPROPRIATELY. Arrival Date: 05/03/2018 11:51 Triage Date: 05/03/2018 11:53 Mode of Arrival: Ambulance Transfer From: [facility] WC: N Language: Citizen Of [place] Transport: [facility] BED D44 In: 05/03/2018 11:53:39 05/03/2018 11:53:39 NAY D44 (Removed From) Out: 05/03/2018 14:50:47 05/03/2018 14:50:47 KCP PROVIDERS Emergency Medical Service Provider Contact: 05/03/2018 11:51:47 EMS End: MD Corky Grande Provider Contact: 05/03/2018 11:59:04 REJI End: SHIMA ALVAREZ Provider Contact: 05/03/2018 12:08:18 KCP End: TRIAGE HISTORY ALLERGIES Allergic To: No Known Allergies 05/03/2018 11:59 NAY CURRENT MEDS [facility] PATIENT NAME: JOVANI HOLMAN [address] [facility] [address] MEDICAL REC #: [id number] [place] [address] EMERGENCY DEPARTMENT CHART EMERGENCY DEPARTMENT PHYSICIAN Name: [...] Surgery: LEFT LUNG LOBECTOMY 05/03/2018 11:59 NAY [facility] PATIENT NAME: JOVANI HOLMAN [address] MEDICAL REC #: [id number] [place] [address] EMERGENCY DEPARTMENT CHART EMERGENCY DEPARTMENT PHYSICIAN Surgery: IVC FILTER 05/03/2018 11:59 NAY NURSING ASSESSMENT ASSESSMENT NOTES 05/03/2018 12:20 pt presents with back pain after trying to lift a heavy object a couple of days ago- pt has hx of back problems and surgeries. pt was at the [facility] clinic and states that the pt became unresponsive. 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 pt answering questions appropriately. pt aandamp;ox4, perrla +2, msps intact. heart sounds normal. lung sounds diminished to left lobe. respers easy and non-labored. 05/03/2018 12:22 KCP TREATMENT 05/03/2018 12:18 Patient Interaction - Introduce self to Patient. 05/03/2018 12:19 KCP 05/03/2018 12:18 Patient Interaction - Name Band on Pt 05/03/2018 12:19 KCP 05/03/2018 12:19 Patient Interaction - Lumber Salvager/ Pulse ox/ BP cuff applied 05/03/2018 12:19 KCP 05/03/2018 12:19 Patient Interaction - Call light placed within reach. 05/03/2018 12:19 KCP 05/03/2018 12:19 Hourly Rounding - Rounding 05/03/2018 12:19 KCP Elimination/Toileting N Pain 8 Position Comfortable Y Safe Environment Y Fall Risk Change N 05/03/2018 12:19 Primary DOC Guide - A. Patient History 05/03/2018 12:19 KCP Primary History Source Patient [facility] PATIENT NAME: JOVANI HOLMAN [address] [facility] [address] MEDICAL REC #: [id number] [place] [address] EMERGENCY DEPARTMENT CHART EMERGENCY DEPARTMENT PHYSICIAN Saul [...] Abuse No Indicators of Verbal/Emotional Abuse No [facility] PATIENT NAME: JOVANI HOLMAN [facility] [address] MEDICAL REC #: [id number] [place] [address] EMERGENCY DEPARTMENT CHART EMERGENCY DEPARTMENT PHYSICIAN Within [...] Admit/Discharge - Discharged via WC 05/03/2018 15:55 P 05/03/2018 14:50 Discharge - Heplock removed dressing applied no bleeding noted 05/03/2018 15:55 P 05/03/2018 14:50 Discharge - Printed discharge instructions given to pt. 05/03/2018 15:55 KCP 05/03/2018 14:50 Discharge - Instructions reviewed with pt and verbalizes understanding 05/03/2018 15:55 P 05/03/2018 14:50 Admit/Discharge - *Discharge instructions/tests andamp; procedures/med list reviewed and provided; prescriptions given to patient 05/03/2018 15:55 KCP MEDICATIONS IV IV Fluid: B 05/03/2018 12:00 05/03/2018 12:00 NAY Line #: 1 Fluid: Saline Lock Rate: ml/hr Location: antecubital fossa right [facility] PATIENT NAME: JOVANI HOLMAN [facility] [address] MEDICAL REC #: [id number] [place] [address] EMERGENCY DEPARTMENT CHART EMERGENCY DEPARTMENT PHYSICIAN Ndl [...] VS-Notes Time: 05/03/2018 14:50 map 113 05/03/2018 [facility] PATIENT NAME: JOVANI HOLMAN [facility] Dr. Ghosh MEDICAL REC #: [id number] [place] [address] EMERGENCY DEPARTMENT CHART EMERGENCY DEPARTMENT PHYSICIAN 15:56 KCP ORDERS Discharge patient 05/03/2018 14:43 N/A Ordered: 05/03/2018 14:42 By . Other Reviewed: 05/03/2018 14:43 By . Other MIX MILL TENDER ORDER: POCTROP 05/03/2018 14:18 None Ordered: 05/03/2018 14:18 Completed Time: 05/03/2018 14:18 Results Time: 05/03/2018 14:18 UA ccms (cath if unable to void in 30 mins) 05/03/2018 14:21 N/A Ordered: 05/03/2018 13:47 By Corky Grande Completed Time: 05/03/2018 14:21 By Corky Grande Noted Time: 05/03/2018 13:57 SLV Question: Lab Urine Specimen Type Answer: Clean Catch Question: Also Culture, if indicated by UA results (Y or N) Answer: YES Results Time: 05/03/2018 14:21 MIX MILL TENDER ORDER: CBCD 05/03/2018 13:08 None Ordered: 05/03/2018 13:08 Completed Time: 05/03/2018 13:08 Results Time: 05/03/2018 13:08 MIX MILL TENDER ORDER: GFRP 05/03/2018 12:52 None Ordered: 05/03/2018 12:52 Completed Time: 05/03/2018 12:52 Results Time: 05/03/2018 12:52 MIX MILL TENDER ORDER: BMP 05/03/2018 12:52 None Ordered: 05/03/2018 12:52 Completed Time: 05/03/2018 12:52 Results Time: 05/03/2018 12:52 CT abd and pel with IV con only 05/03/2018 13:40 N/A Ordered: 05/03/2018 12:21 By Corky Grande Completed Time: 05/03/2018 13:40 By Corky Grande [facility] PATIENT NAME: JOVANI HOLMAN [facility] Dr[facility] Ghosh MEDICAL REC #: [id number] [place] [address] EMERGENCY DEPARTMENT CHART EMERGENCY DEPARTMENT PHYSICIAN Indication: Back Pain, Non Traumatic Noted Time: 05/03/2018 13:32 Question: Patient has history of true RCM allergy? Answer: NO IV hep lock 05/03/2018 12:08 N/A Ordered: 05/03/2018 12:06 By Corky Grande Completed Time: 05/03/2018 12:08 By Corky Grande gambling monitor 05/03/2018 12:08 N/A Ordered: 05/03/2018 12:06 [...] By Protocol Noted Time: 05/03/2018 12:08 KCP [facility] PATIENT NAME: JOVANI HOLMAN [facility] Dr[facility] Ghosh MEDICAL REC #: [id number] [address] EMERGENCY DEPARTMENT CHART EMERGENCY DEPARTMENT PHYSICIAN DISCHARGE [...] 8 hrs pain for 7 days Dispense: / Refills: CHARGES SIGNATURE Corky GIORDANO [facility] KAMINI REYEZ JR ODILIA ALVAREZ RN P AMRIK MIRANDA MJSA [facility] PATIENT NAME: JOVANI HOLMAN [address] [facility] [address] Ghosh MEDICAL REC #: [id number] [place] [address] EMERGENCY DEPARTMENT CHART EMERGENCY DEPARTMENT PHYSICIAN UA COMPLETE Collected: 05/03/2018 Status: F Source: [facility] 1:59 PM [facility] REPOSITORY Order Comment: [place]: M TYPE CODE TESTS RESULT OUT OF REFERENCE UNITS RANGE LAB L600.91477 UA COLOR Normal Sabina LAB L600.98068 CLEAR UA Normal APPEARANCE Hazy LAB L600.91855 1.005-1.030 UA SPEC Normal GRAV 1.060 LAB L600.36586 UA PH Normal 5.0 LAB L600.15642 UA GLUCOSE Normal NEG LAB L600.77544 UA KETONE Normal 20 LAB L600.73489 UA Normal BILIRUBIN NEGATIVE LAB L600.48067 UA Normal UROBILINOGEN 2.0 LAB L600.16184 NEGATIVE UA PROTEIN Normal 30 LAB L600.99937 NEGATIVE UA BLOOD Normal NEGATIVE LAB L600.48799 NEGATIVE UA NITRITE Normal NEGATIVE LAB L600.52785 NEGATIVE UA LK Normal ESTERASE NEG LAB L600.09727 0-5 WBC/HPF UA WBC Normal 2 LAB L600.84423 0-3 RBC/HPF UA RBC High 6 LAB L600.30168 0-5 EPI/HPF SQUAMOUS Normal EPIS 0 LAB L600.29850 NONE /HPF UA BACTERIA Normal TRACE LAB L600.29207 MUCUS Normal 4+ LAB L600.34554 0-1 /LPF HYALINE High CAST 73 Performed By: #### L600.39129 #### [facility] [address] [place] [address] EKG Observed: 05/03/2018 Status: UNK Source: [facility] 12:41 PM [facility] REPOSITORY Procedure Date and Time: 05/03/181206 Test [...] By:Stephanie OROZCO M.D.FACC Román DDandT: 05/03/181206 TDandT: [facility] PATIENT NAME: JOVANI HOLMAN [facility] Ghosh MEDICAL REC #: [id number] [place] [address] ADMIT DATE: DISCHARGE DATE: ATTENDING PHY: Alba Plata,Emergency Physi ELECTROCARDIOGRAM REPORT CLB cc: [facility] PATIENT NAME: JOVANI HOLMAN [facility] Dr[facility] Ghosh MEDICAL REC #: [id number] [place] [address] ADMIT DATE: DISCHARGE DATE: ATTENDING PHY: Alba Plata,Emergency Physi ELECTROCARDIOGRAM REPORT CT ABD/PEL W IV Observed: 05/03/2018 Status: F Source: [facility] CONTRAST ONLY 12:41 PM [facility] REPOSITORY CT ABD/PEL W IV CONTRAST ONLY Ordering [...] ARMAS M.D. Signed By: LUCHO ARMAS M.D. BMP Collected: 05/03/2018 Status: F Source: [facility] 12:23 PM [facility] REPOSITORY TYPE CODE TESTS RESULT OUT OF RANGE REFERENCE UNITS LAB L500.35120 136-145 MMOL/L Normal NA 143 LAB L500.64355 3.5-5.1 MMOL/L Low K 3.0 Result Comment: Slight Hemolysis, Result may be falsely increased. LAB L500.50805 98-107 MMOL/L High CL 111 LAB L500.75013 21-32 MMOL/L Normal CO2 21 LAB L500.85696 5-16 MMOL/L Normal AGAP 10 LAB L500.28610 70-100 MG/DL Normal GLU 94 Result Comment: 70-100- Normal Fasting; 100-125 Impaired Fasting; greater than 126 on more than one result- Diabetes. ADA guidelines. Results may be falsely elevated after the administration of Sulfapyridine. Results may be falsely depressed after the administration of Sulfasalazine. LAB L500.29553 7-26 MG/DL Normal BUN 20 LAB L500.21591 0.670-1.170 MG/DL Normal CREAT 1.000 Result Comment: Patients receiving either N-Acetylcysteine (NAC) or Metamizole prior to venipuncture, may have falsely depressed results. LAB L500.76783 15-24 Normal BUN/CREA 20 LAB L500.95457 8.5-10.1 MG/DL Low CALCIUM TOTAL 7.4 Performed By: #### L500.10888, L500.68374 #### [facility] [address] [place] [address] GFR EST Collected: 05/03/2018 Status: F Source: [facility] 12:[address] [facility] TYPE CODE TESTS RESULT OUT OF RANGE REFERENCE UNITS LAB L500.38787 ML/MIN Normal IF non-AFR Greater than AMER 60 LAB L500.54814 ML/MIN Normal IF Greater than AMER 60 Performed By: #### L500.45546, L500.53944 #### [facility] [address] [place] [address] CBC W/DIFF Collected: 05/03/2018 Status: F Source: [facility] 12:23 PM [facility] REPOSITORY TYPE CODE TESTS RESULT OUT OF RANGE REFERENCE UNITS LAB L200.61983 4.5-11.0 K/CU MM Normal WBC 7.8 LAB L200.60892 4.50-6.00 M/CU MM Low RBC 3.91 LAB L200.94043 13.5-17.5 G/DL Low HGB 12.7 LAB L200.05131 41.0-53.0 % Low HCT 37.8 LAB L200.97512 80.0-99.0 fl Normal MCV 96.7 LAB L200.05330 32.0-36.0 GM/DL Normal MCHC 33.6 LAB L200.34068 11-14.5 Normal RDW 13.3 LAB L200.09259 9.4-12.4 Normal MPV 12.4 LAB L200.71885 150-450 K/CU MM Low PLT 98 Result Comment: Confirmed by slide estimate. LAB L200.84467 45-75 % NEUTROPHILS 71.0 Normal % LAB L200.06096 Less than % 2 IMMATURE 0.3 Normal GRAN % LAB L200.76406 20-40 % Low LYMPH % 18.4 LAB L200.60478 2-10 % MONOCYTE % 9.0 Normal LAB L200.20651 0-5 % EOSINOPHIL 0.9 Normal % LAB L200.91111 0-2 % BASOPHIL % 0.4 Normal LAB L200.23433 2.0-8.3 K/CU MM NEUTROPHIL 5.60 Normal ABS LAB L200.91351 Less than K/CU MM 2 IMMATR GRAN 0.00 Normal ABS LAB L200.20068 0.9-4.4 K/CU MM LYMPH ABS 1.40 Normal LAB L200.07083 0.1-1.1 K/CU MM MONO ABS 0.70 Normal LAB L200.23111 0-0.5 K/CU MM EOS ABS 0.10 Normal LAB L200.18193 0-0.2 K/CU MM BASO ABS 0.00 Normal LAB L200.15335 Less than % 1 NRBC 0.0 Normal LAB L200.55673 POIK 1+ Normal LAB L200.51239 OVALOCYTES 1+ Normal LAB L200.85589 PLT EST MOD Normal DECREASED LAB L200.83689 PLT MORPH LARGE Normal FORMS NOTED Performed By: #### L200.58417 #### [facility] [address] [place] [address] TROPONIN I POC Collected: 05/03/2018 Status: F Source: [facility] 12:08 PM [facility] REPOSITORY TYPE CODE TESTS RESULT OUT OF RANGE REFERENCE UNITS LAB L550.56277 0.0-0.06 NG/ML Normal TROPONIN I POC 0.00 Result Comment: 0.0 - 0.06 NG/ML - NON- DIAGNOSTIC (REFERENCE RANGE) 0.07 - 0.59 NG/ML - INDETERMINATE Greater than or equal to 0.6 NG/ML - INDICATIVE OF MYOCARDIAL DAMAGE CT OUTSIDE CD DICOM Observed: 05/03/2018 Status: F Source: [place] IMPORT -NBNR 12:[address] [facility] REPOSITORY Images were obtained outside of [facility] [id number] Observed: 01/17/2018 Status: COMPLETED Source: [place] 12:[address] [facility] REPOSITORY Letter Text [facility] Authorization for the Release of Medical Information I hereby jayy permission for the release of medical information relating to my care to the parties named here: REQUEST FROM: SEND TO: /Jeffrey/Luist. The [facility] [address], [place] [address] The purpose of this release is for the continuing care and treatment of this patient by the [facility]. I specify that this release [...] CARDIAC PERF Observed: 01/16/2018 Status: F Source: [place] STRESS/PHARM 10:10 AM CLINIC OTHER CAMPUS REPOSITORY * * *Final Report* * * DATE OF EXAM: Jan 16 2018 10:10AM [facility] 0006 - NM CARDIAC PERF STRESS/PHARM / [...] 60 minutes later. See administered doses below. [facility] Date of service: 01/16/2018 7:42:44 AM Ordering [...] normal sinus rhythm. Stress complications: none. Final Cement Block Maker: IMANI Transcrigabo Date/Time: Jan 16 2018 7:42A Dictated by : WANDA FORD DO This examination was interpreted and the report reviewed and electronically signed by: WANDA FORD DO on Jan 16 2018 4:52PM EST [id number] Observed: 01/14/2018 Status: COMPLETED Source: [place] 12:00 AM [facility] REPOSITORY Patient Update (FAMPWS) JOVANI HOLMAN ([id number]) 1950 M Date Time Provider Department 01/14/18 [facility]MINIO LINARES [facility] During your visit today, we recorded the following information about you: Allergies As of Date: 01/14/2018 Noted Allergy Reaction BACTRIM (SULFAMETHOXAZOLE-TRIMETH*11/18/2008 14 - Other: See Comments Comments: sore throat LEVAQUIN (LEVOFLOXACIN) 06/10/2005 8 - GI Upset Date Reviewed: 01/11/2018 Reviewed by: Herminio Linares - Fully Assessed Order(s):CBCDIF (EXTERNAL) [4280410] Order #: [id number] CMP (EXTERNAL) [1564502] Order #: [id number] LIPID PANEL (OUTSIDE) [6988912] Order #: [id number] TSH (EXTERNAL) [9896388] Order #: [id number] HBA1C (OUTSIDE) [1257997] Order #: [id number] Prescriptions as of 01/14/2018 Sig: ASPIRIN 81 [...] 01/14/18 YUDELKA Observed: 01/13/2018 Status: COMPLETED Source: [place] 12:00 AM [facility] REPOSITORY Telephone (CDLBME) JOVANI HOLMAN (105) 1950 M Date Time Provider Department 01/13/18 ENRIQUETA RAYGOZA (RN) CDLBME During your visit today, we recorded the following information about you: Enriqueta Raygoza (Rn), RN 01/13/2018 1:32 PM Addendum Spoke with patient regarding reminder for stress test Tuesday and given instructions Allergies As of Date: 01/13/2018 Noted Allergy Reaction BACTRIM (SULFAMETHOXAZOLE-TRIMETH*11/18/2008 14 - Other: See Comments Comments: sore throat LEVAQUIN (LEVOFLOXACIN) 06/10/2005 8 - GI Upset Date Reviewed: 01/11/2018 Reviewed by: Herminio Linares - Fully Assessed Reason for Visit: Reminder Call [[id number]] Prescriptions as of 01/13/2018 Sig: ASPIRIN 81 [...] 01/13/18 PROGRESS Observed: 01/11/2018 Status: COMPLETED Source: [place] 5:[address] [facility] [place] REPOSITORY O ID: [id number] Author: Herminio Linares Service: (none) Author Type: [...] much. List of current specialists seen: Sees [facility], End of Live Planning discussed including patients [...] See below. Gets vision checks with the AR Herminio Linares Chief Complaint Patient presents with: Establish Care HPI Jovani Holman is a 67 year old male who presents here today for extensive exam and to establishment of care. Patient with hx as reviewed, documented and updated below. Sees AR for routine health. Has been having SESAY and reduced physical tolerance for about 2 years but has been progressing. Discussed with AR and had a breathing test and was [...] STRESS/PHARM - Get copies of PFT's from AR 3. Decreased activity tolerance - ICD9: 780.99, ICD10: R68.89 Check - ECG COMPLETE W INTERPRETATION - ECHO - NM CARDIAC PERF STRESS/PHARM 4. Coronary artery disease due to lipid rich plaque - ICD9: 414.00, 414.3, ICD10: I25.10, I25.83 Check - ECG COMPLETE W INTERPRETATION - ECHO - NM CARDIAC PERF STRESS/PHARM - Get copies of most recent labs from AR. 5. Mixed hyperlipidemia - ICD9: 272.2, ICD10: [...] MD CNOV Observed: 01/11/2018 Status: COMPLETED Source: [place] 4:40 PM [facility] REPOSITORY Office Visit (FAMPWS) JOVANI HOLMAN ([id number]) 1950 M Date Time Provider Department 01/11/18 4:40 PM [facility] LINARESWS During your visit today, we [...] much. List of current specialists seen: Sees AR, End of Live Planning discussed including patients [...] See below. Gets vision checks with the AR Herminio Linares Chief Complaint Patient presents with: Establish Care HPI Jovani Holman is a 67 year old male who presents here today for extensive exam and to establishment of care. Patient with hx as reviewed, documented and updated below. Sees AR for routine health. Has been having SESAY and reduced physical tolerance for about 2 years but has been progressing. [facility] and [facility] and was [...] 3 back surgeries - REMV LENS MATERIAL,PHACOFRAGMT 2010 Cataract Extraction (right and left) Family History [...] STRESS/PHARM - Get copies of PFT's from AR 3. Decreased activity tolerance - ICD9: 780.99, ICD10: R68.89 Check - ECG COMPLETE W INTERPRETATION - ECHO - NM CARDIAC PERF STRESS/PHARM 4. Coronary artery disease due to lipid rich plaque - ICD9: 414.00, 414.3, ICD10: I25.10, I25.83 Check - ECG COMPLETE W INTERPRETATION - ECHO - NM CARDIAC PERF STRESS/PHARM - Get copies of most recent labs from AR. 5. Mixed hyperlipidemia - ICD9: 272.2, ICD10: [...] Linares - Fully Assessed Reason for Visit: Establish [...] Order(s):ECG COMPLETE W INTERPRETATION [ECG01] Order #: [id number] FUTURE ECHO [265835] Order #: [id number]: 1 FUTURE NM CARDIAC PERF STRESS/PHARM [1640066] Order #: [id number] FUTURE regadenoson (LEXISCAN) 0.4 mg/5 mL syrgInject 5 mL intravenously one time only for 1 dose. Give IV push over 10 seconds and follow with 5 ml of normal salineDisp: 5 mLRfl: 0 IV START - SPECIFY [4756796] Order #: [id number]: 1 IV DISCONTINUE [6164903] Order #: [id number]: 1 Prescriptions as of 01/11/2018 Sig: ASPIRIN [...] normal saline Medications Discontinued During This Encounter Nbaiydtthgwqj-BW-gqpdONLqtbi (ADULT * 150 * 0 08/05/2016 01/11/2018 [...] SEVERITY SOURCE 05/05/2018 Drug No Known Unknown [place] Allergy/416 Allergies/[id number] Formerly [facility] 157664([facility] 8(RXNORM) [facility] ED CT) Repository 11/18/2008 DRUG/094861 SULFAMETHOXAZOLE-TR OTHER: SEE C [facility] 003(SNOMED IMETHOPRIM Other [place] CT) Repository 11/18/2008 DRUG/972109 SULFAMETHOXAZOLE-TR [facility] 003(SNOMED IMETHOPRIM Main [place] CT) Repository 06/10/2005 DRUG LEVOFLOXACIN GI UPSET [facility] INGREDI/419 Other [place] 877668(SNOM Repository ED CT) 06/10/2005 DRUG LEVOFLOXACIN GI UPSET [facility] INGREDI/419 Main [place] 504044(SNOM Repository ED CT) ENCOUNTERS ENCOUNTERS ADMIT/DISCHARGE ACCOUNT ADMITTING ENCOUNTER LOCATION SOURCE NUMBER CLASS 09/21/2018/09/22/19 [id number] Ambulatory [address] Main [place] Repository 09/19/2018/09/20/19 [id number] Ambulatory [address] Repository 09/15/2018/09/15/19 [id number] Ambulatory [place] [facility] Main [place] Repository 09/15/2018/09/19/19 [id number] Ambulatory [place] [facility] Main [place] Repository 09/15/2018/09/15/19 [id number] Ambulatory [place] [facility] Main [place] Repository 09/13/2018/09/14/19 [id number] Ambulatory [place] [facility] Main [place] Repository 09/07/2018/09/08/19 [id number] Ambulatory [place] [facility] Main [place] Repository 08/31/2018/09/01/20 [id number] Ambulatory [place] [facility] Main [place] Repository 08/17/2018 [id number] [facility] Repository 08/17/2018/08/17/20 [id number] Ambulatory [address] Main [place] Repository 08/11/2018/08/11/20 [id number] Ambulatory [address] Main [place] Repository 08/10/2018/08/10/20 [id number] Ambulatory [address] Other [place] Repository 08/03/2018 [id number] [facility] [place] [facility] Repository 08/03/2018/08/03/20 [id number] Ambulatory [address] Main [place] Repository 07/26/2018/07/31/20 [id number] Ambulatory [address] Main [place] Repository 07/20/2018 [id number] [facility] ing:[facility] Repository 07/20/2018/07/20/20 [id number] Ambulatory [place] [facility] Main [place] Repository 07/14/2018/07/17/20 [id number] Ambulatory [place] [facility] Main [place] Repository 07/13/2018/07/13/20 [id number] Ambulatory [place] [facility] Main [place] Repository 07/10/2018/07/24/20 [id number] Ambulatory [place] [facility] Main [place] Repository 07/06/2018 [id number] [facility] [place] [facility] ing:[facility] Repository 07/06/2018/07/06/20 [id number] Ambulatory [place] [facility] Main [place] Repository 07/03/2018/07/03/20 [id number] Ambulatory [place] [facility] Main [place] Repository 07/03/2018 [id number] Ambulatory [facility] ing:LABSPEC Repository 06/30/2018 [id number] Ambulatory [facility] ing:LABSPEC Repository 06/30/2018/06/30/20 [id number] Ambulatory [address] Main [place] Repository 06/29/2018 [id number] Ambulatory [facility] ing:LABSPEC Repository 06/29/2018/06/29/20 [id number] Ambulatory [address] Main [place] Repository 06/27/2018/06/28/20 [id number] Ambulatory [address] Main [place] Repository 06/27/2018 [id number] Ambulatory [facility] ing:LABSPEC Repository 06/27/2018/06/27/20 [id number] Ambulatory [address] Main [place] Repository 06/27/2018/06/27/20 [id number] Ambulatory [address] Main [place] Repository 06/26/2018 [id number] Ambulatory [facility] ing:LABSPEC Repository 06/26/2018/06/26/20 [id number] Ambulatory [address] Main [place] Repository 06/21/2018/06/24/20 [id number] FRANSISCO, Inpatient [address] Encounter Clinic Other (FEL) [place] Repository 06/21/2018/06/22/20 [id number] Ambulatory [address] Main [place] Repository 06/19/2018 [id number] Ambulatory [facility] ing:LABSPEC Repository 06/19/2018/06/19/20 [id number] Ambulatory [address] Main [place] Repository 06/10/2018/06/16/20 [id number] NICK, [facility] [place] [address] [facility] Other (RES[facility] [place] Repository 06/08/2018/06/12/20 [id number] Ambulatory [address] Main [place] Repository 06/08/2018/06/08/20 [id number] Ambulatory [address] Main [place] Repository 06/03/2018/06/03/20 [id number] Ambulatory [address] Main [place] Repository 05/31/2018/05/31/20 [id number] Ambulatory [address] Repository 05/30/2018/05/30/20 [id number] Ambulatory [address] Repository 05/30/2018/05/31/20 [id number] Ambulatory [address] Repository 05/11/2018/05/12/20 [id number] Ambulatory [address] Repository 05/10/2018/05/11/20 [id number] Ambulatory [address] Repository 05/06/2018/05/07/20 [id number] Danie, Inpatient [place] Encounter [facility] ing:PCURoom: Repository [id number]: 1 05/06/2018 [id number] Danie Ambulatory BMSBuilding:[place] Repository 05/06/2018 [id number] Danie, Ambulatory BMSBuilding:[place] [facility] Repository 05/06/2018/05/07/20 [id number] Ambulatory BMSBuilding:Jie [place] [address] [place] [address] Repository 05/05/2018 [id number] Danie, Ambulatory BMSBuilding:[place] Repository 05/05/2018/05/09/20 [id number] Ambulatory [address] Repository 05/03/2018 [id number] [facility] [place] g:H.ED Repository 01/16/2018 [id number] Ambulatory [facility] Repository 01/16/2018 [id number] Ambulatory [facility] Repository 01/13/2018/01/14/20 [id number] Ambulatory [address] Repository 01/12/2018/01/12/20 [id number] Ambulatory [address] Repository 01/11/2018/01/13/20 [id number] Ambulatory [address] Repository PAYERS PAYERS ENCOUNTER GUARANTOR PAYER SUBSCRIBER SOURCE 08/17/2018 JOVANI HOLMAN2195 Primary JOVANI MAHER: [place] Insurance[id number] A [facility] [address]Qxv: (330) Number: Repository [phone] () [id number] Date:2018-08-17 08/17/2018 Secondary JOVANI E HOUGHDOB: [place] Insurance:[facility] [id number] Number: Repository [id number] Date:2018-08-17[address], [place] [address]AU: 08/17/2018 Tertiary NOT GIVENUNK [place] Insurance:SELF PAY [facility] Number: Effective Repository Date:2018-08-17 08/03/2018 JOVANI E [id number] Primary JOVANI E HOUGHDOB: [place] Insurance:MEDICARE [id number] [address]Gfi: (330) Number: Repository [phone] () [id number] Date:2018-08-03 08/03/2018 Secondary JOVANI E HOUGHDOB: [place] Insurance:[facility] [id number] Number: Repository [id number] Date:2018-08-03[address], [place] [address]GW: 08/03/2018 Tertiary NOT GIVENUNK [place] Insurance:SELF PAY [facility] Number: Effective Repository Date:2018-08-03 07/20/2018 JOVANI E [id number] Primary JOVANI E HOUGHDOB: [place] Insurance:MEDICARE [id number] [facility] [address]Znc: (330) Number: Repository [phone] () [id number] Date:2018-07-20 07/20/2018 Secondary JOVANI E HOUGHDOB: [place] Insurance:[facility] [id number] Health Partners Hospital Number: Repository [id number] Date:2018-07-20[address], [place] [address]GP: 07/20/2018 Tertiary NOT GIVENUNK [place] Insurance:SELF PAY [facility] Number: Effective Repository Date:2018-07-20 07/06/2018 JOVANI HOLMAN2195 Primary JOVANI E HOUGHDOB: [place] Insurance:MEDICARE [id number] [facility] [address]Oui: (330) Number: Repository [phone] () [id number] Date:2018-07-06 07/06/2018 Secondary JOVANI E HOUGHDOB: [place] [facility] [id number] Health Partners Hospital Number: Repository [id number] Date:2018-07-06[address], [place] [address]MP: 07/06/2018 Tertiary NOT GIVENUNK [place] Insurance:SELF PAY [facility] Number: Effective Repository Date:2018-07-06 07/03/2018 JOVANI HOLMAN2195 Primary JOVANI E ANDERSUGHDOB: [place] Insurance:MEDICARE [id number] [facility] [address]Utm: (330) Number: Repository [phone] () [id number] Date:2018-07-03 07/03/2018 Secondary JOVANI E HOUGHDOB: [place] Insurance:[facility] [id number] Health Partners Hospital Number: Repository [id number] Date:2018-07-03[address], [place] [address]YC: 07/03/2018 Tertiary NOT GIVENUNK [place] Insurance:SELF PAY [facility] Number: Effective Repository Date:2018-07-03 06/30/2018 JOVANI HOLMAN2195 Primary JOVANI E HOUGHDOB: [place] Insurance:MEDICARE [id number] [facility] [address]Wqh: (330) Number: Repository [phone] () [id number] Date:2018-06-30 06/30/2018 Secondary JOVANI E HOUGHDOB: [place] Insurance:BANKERS [id number] Number: Repository [id number] Date:2018-06-[address], [place] [address]WB: 06/30/2018 Tertiary NOT GIVENUNK [place] Insurance:SELF PAY [facility] Number: Effective Repository Date:2018-06-30 06/29/2018 JOVANI HOLMAN2195 Primary JOVANI E HOUGHDOB: [place] Insurance:MEDICARE [id number] Rehabilitation Hospital [facility] [address]9988Hzt: (330) Number: Repository [phone] () [id number] Date:2018-06-29 06/29/2018 Secondary JOVANI E HOUGHDOB: [place] Insurance:[facility] [id number] Healthy Hospital Number: Repository [id number] Date:2018-06-29[address], [place] [address]NT: 06/29/2018 Tertiary NOT GIVENUNK [place] Insurance:SELF PAY [facility] Number: Effective Repository Date:2018-06-29 06/27/2018 JOVANI HOLMAN2195 Primary JOVANI E HOUGHDOB: [place] Insurance:MEDICARE [id number] [facility] [address]Npr: (330) Number: Repository [phone] () [id number] Date:2018-06-27 06/27/2018 Secondary JOVANI E HOUGHDOB: [place] Insurance:BANKERS [id number] Healthy Hospital Number: Repository [id number] Date:2018-06-27[address], [place] [address]BS: 06/27/2018 Tertiary NOT GIVENUNK [place] Insurance:SELF PAY [facility] Number: Effective Repository Date:2018-06-27 06/26/2018 JOVANI HOLMAN2195 Primary JOVANI E HOUGHDOB: [place] Insurance:MEDICARE [id number] [address]Tob: (330) Number: Repository [phone] () [id number] Date:2018-06-26 06/26/2018 Secondary JOVANI E HOUGHDOB: [place] Insurance:BANKERS [id number] Healthy Hospital Number: Repository [id number] Date:2018-06-26[address], [place] [address]YV: 06/26/2018 Tertiary NOT GIVENUNK [place] Insurance:SELF PAY [facility] Number: Effective Repository Date:2018-06-26 06/19/2018 JOVANI E [id number] Primary JOVANI E HOUGHDOB: [place] Insurance:MEDICARE [id number] Rehabilitation Hospital of [facility] [address]Rrb: (330) Number: Repository [phone] () [id number] Date:2018-06-19 06/19/2018 Secondary JOVANI E HOUGHDOB: [place] Insurance:[facility] [id number] Healthy Hospital Number: Repository [id number] Date:2018-06-19[address], [place] [address]HI: 06/19/2018 Tertiary NOT GIVENUNK [place] Insurance:SELF PAY [facility] Number: Effective Repository Date:2018-06-19 05/06/2018 Jovani E [id number] Primary Jovani E HoughDOB: [place] Insurance:MEDICARE [id number] [facility] [address]Hri: (330) Number: Repository [phone] () [id number] Date:2018-05-05 05/06/2018 Secondary Jovani E HoughDOB: [place] [facility] [id number] Healthy Hospital Number: Repository [id number] Date:2018-05-[address], [place] [address]CJ: 05/06/2018 Tertiary NOT GIVENUNK [place] Insurance:SELF PAY [facility] Number: Effective Repository Date:2018-05-05 05/06/2018 Jovani E [id number] Primary Jovani E HoughDOB: [place] Insurance:MEDICARE [id number] Recovery Center a [facility] [address]Vsh: (330) Number: Repository [phone] () [id number] Date:2018-05-05 05/06/2018 Secondary Jovani E HoughDOB: [place] Insurance:[facility] [id number] Health Partners Hospital Number: Repository [id number] Date:2018-05-[address], [place] [address]SG: 05/06/2018 Tertiary NOT GIVENUNK [place] Insurance:SELF PAY [facility] Number: Effective Repository Date:2018-05-06 05/06/2018 Jovani E [id number] Primary Jovani E HoughDOB: [place] Insurance:MEDICARE [id number] Recovery Center a [facility] [address]Qrm: (330) Number: Repository [phone] () [id number] Date:2018-05-05 05/06/2018 Secondary Jovani E HoughDOB: [place] Insurance:[facility] [id number] Health Partners Hospital Number: Repository [id number] Date:2018-05-[address], [place] [address]PB: 05/06/2018 Tertiary NOT GIVENUNK [place] Insurance:SELF PAY [facility] Number: Effective Repository Date:2018-05-06 05/06/2018 Jovani E [id number] Primary Jovani E HoughDOB: [place] Insurance:MEDICARE [id number] Recovery Center a [facility] [address]Qoi: (330) Number: Repository [phone] () [id number] Date:2018-05-05 05/06/2018 Secondary Jovani E RiverDOB: [place] Insurance:[facility] [id number] Hospital Center CASUALTYPolicy Hospital Number: Repository [id number] Date:2018-05-[address] [address]DK: 05/06/2018 Tertiary NOT GIVENUNK [place] Insurance:SELF PAY [facility] Number: Effective Repository Date:2018-05-06 05/05/2018 Jovani Holman2195 Primary Jovani E HoughDOB: [place] Insurance:MEDICARE [id number] [facility] A [facility] [address]Alh: 330) Number: Repository [phone] () [id number] Date:2018-05-05 05/05/2018 Secondary Jovani Johnson HolmanDOB: [place] Insurance:[facility] [id number] Hospital Center CASUALTYPst. j[facility]y [facility] Number: Repository [id number] Date:2018-05-[address], [place] [address]HO: 05/05/2018 Tertiary NOT GIVENUNK [place] Insurance:SELF PAY [facility] Number: Effective Repository Date:2018-05-05 05/03/2018 JOVANI Ornelas [id number] Primary JOVANI Johnson [facility] ARMSRTONG Insurance:[facility] [place] Number: Repository [id number]: 330 [id number] [phone] () Date:[address]STF CODE [id number][place] [address]AQ: 05/03/2018 Secondary JOVANITrey MEEHAN [facility] Insurance:[facility] LIFE & CASUALTYPolicy Repository Number: [id number] Date:[address], [place] [address]CO:
== END ==
PROVIDERS: Referring Provider Family Medicine; Visit Provider Family Medicine
DX: I82.220 Acute embolism and thrombosis of inferior vena cava (principal); Z79.01 Long term (current) use of anticoagulants
CPT/HCPCS: 85610

== ENCOUNTER → 2018-10-13 12:51 | Outpatient (CLI) | payer MEDICARE, OTHER, SELFPAY ==
[2018-10-13 14:13] LABS: International Normalized Ratio 1.4; Prothrombin Time (Protime)PT. 17.4 SECONDS (11.7-14.9)
== END ==
PROVIDERS: Family Provider Family Medicine; PCP Family Medicine; Referring Provider Family Medicine; Visit Provider Family Medicine
DX: I82.220 Acute embolism and thrombosis of inferior vena cava (principal); Z79.01 Long term (current) use of anticoagulants
CPT/HCPCS: 85610

== ENCOUNTER 2019-03-21 05:13 | Day surgery (SDC) | payer MEDICARE, OTHER, SELFPAY ==
--- NOTE | 2019-03-19 18:16 | HP.PCM_ITS ---
History and Physical Date of Admission: 03/21/19 HISTORY AND PHYSICAL ? Jerome Holman 1950 ? REFERRING PHYSICIAN: ??Herminio Yee MD ? CHIEF COMPLAINT: ??colon consult ? HPI: The patient is a 68 year old male referred for endoscopy. ?Jerome notes a personal history of colon polyps and is due for surveillance endoscopy.???Most recent colonoscopy was performed in January [address] Lowe with removal of three small adenomatous polyps at that time, 3 year follow-up recommended.???Patient denies any change in bowel habits, weight changes, blood in stools, black tarry stools or abdominal pain.??Denies?family history of colon issues. ?The patient notes no upper GI complaints. ? Patient's past medical history is significant for hypertension, hyperlipidemia, coronary artery disease, PVCs, thoracic aortic aneurysm, incomplete right bundle branch block, history of pulmonary embolism, IVC filter in place, IVC thromboembolism, obesity. ?Patient follows with Dr. Yee for his chronic medical conditions. ?He is maintained on chronic warfarin anticoagulation. ?He denies problems with sedation in the past. ? ? PAST?MEDICAL?HISTORY PAST MEDICAL HISTORY Diagnosis Date ? Acute deep vein thrombosis (DVT) of proximal vein of both lower extremities (HCC) 05/12/2018 ? Adenomatous colon polyp 10/25/2013 ? 2008 ? Agent orange exposure 02/21/2016 ? At high risk for falls 06/26/2018 ? Benign prostatic hyperplasia 09/19/2008 ? Bilateral leg weakness 06/26/2018 ? Bladder neck obstruction 09/19/2008 ? Chronic anticoagulation 06/19/2018 ? Chronic obstructive pulmonary disease (COPD) (HCC) ? ? Coronary artery disease due to lipid rich plaque 01/11/2018 ? Cath around 2010 was told had one vessel at 30% blocked and maker at 50 %. ?As to be managed medically. ? Diverticulosis of colon (without mention of hemorrhage) ? ? Ectatic thoracic aorta (HCC) 08/10/2018 ? 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 Epididymo-orchitis 06/21/2018 ? Essential hypertension 09/13/2010 ? -continue home regimen of atenolol 50, amlodipine 5, HCTZ 25 ? Ex-smoker 01/11/2018 ? Started around age 8 up to 2 PPD and quit 2009 ? Ex-user of chewing tobacco 01/11/2018 ? GERD (gastroesophageal reflux disease) 11/23/2013 ? Hemorrhage of rectum and anus 10/23/2008 ? Herniation of intervertebral disc between L4 and L5 05/10/2018 ? History of DVT (deep vein thrombosis) 05/12/2018 ? On chronic coumadin ? Idiopathic urticaria 11/10/2006 ? Incomplete RBBB 09/13/2018 ? Present on EKG from 2010 ? 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 Interstitial lung disease (HCC) 09/29/2018 ? Intractable pain 06/21/2018 ? Leg edema 09/16/2010 ? Lumbago 09/19/2008 ? Lumbar foraminal stenosis 05/10/2018 ? L5-S1 ? Lupus erythematosus ? ? ? if this was a true Dx. ? Mixed hyperlipidemia 09/14/2010 ? Chol ?182 ?Tri 98 HDL 35 LDL 127 ? Mixed simple and mucopurulent chronic bronchitis (HCC) 01/22/2016 ? Obesity, Class I, BMI 30-34.9 06/24/2018 ? RAYRAY (obstructive sleep apnea) AHI 5.1 per 4% & OS 10/15/2015 ? Was not able to tolerate ? Other pulmonary embolism and infarction 09/13/2010 ? -pt had PE and DVT in 2006 after back surgery -an IVC filter was placed then and is still in place Was on coumadin for a time and then quit taking it on his own ? Postinflammatory pulmonary fibrosis (HCC) 09/16/2010 ? Presence of IVC filter 12/29/2014 ? PVC's (premature ventricular contractions) 01/11/2018 ? Renal insufficiency 07/14/2018 ? SOLAR LENGINES 06/08/2006 ? Spermatocele 09/13/2018 ? Thoracic aortic aneurysm without rupture (HCC) 02/22/2018 ? See who patient sees [facility] [place] next visit (07/14/2018) ? PAST?SURGICAL?HISTORY PAST SURGICAL HISTORY Procedure Laterality Date ? 2D ECHO (EXEP) ? 01/13/2018 ? EF= 64%, Mild LVH and Tucker Dys, Mild LA enlargement and dialted ascending Aorta ? COLONOS W/REM POLYP SNARE ? 01/06/16 ? adenomatous polyp - 3 year follow up ? COLONOSCOP W/ OR W/O BRSH SPEC ? 10/23/2008 ? Colonoscopy, tubular adenoma ? LEFT HEART CATH,PERCUTANEOUS ? 09/14/2010 ? Cardiac cath, L heart ? NUCLEAR STRESS LEXISCAN (CARD) ? 09/28/2018 ? negative ? PAST SURGICAL HISTORY OF ? 1997 ? partial removal left lung - [facility] ? PAST SURGICAL HISTORY OF ? ? ? 3 back surgeries ? PAST SURGICAL HISTORY OF Left 2019 ? spermatocele cyst removed ? REMV LENS MATERIAL,PHACOFRAGMT ? 2009 ? Cataract Extraction (right and left) ? STRESS TEST ? 01/16/2018 ? normal ? ? ? CURRENT?MEDICATIONS ? Current Outpatient Medications: cephALEXin (KEFLEX) 500 mg capsule Take 1 capsule by mouth four times daily for 10 days. warfarin (COUMADIN) 2.5 mg tablet Take 2 tablets by mouth daily as directed. Take daily dose as instructed by physician. warfarin (COUMADIN) 2 mg tablet Take 1 tablet by mouth daily as directed. warfarin (COUMADIN) 3 mg tablet Take one tab daily or as directed by Phisician. carvedilol (COREG) 6.25 mg tablet TAKE 1 TABLET BY MOUTH TWICE DAILY Cholecalciferol, Vitamin D3, (VITAMIN D-3) 2,000 unit cap Take 1 capsule by mouth. atorvastatin (LIPITOR) 10 mg tablet Take 2 tablets by mouth once daily. (Patient taking differently: Take 10 mg by mouth daily at bedtime. ) doxazosin (CARDURA) 8 mg tablet Take 1 tablet by mouth every evening. hydrochlorothiazide (HYDRODIURIL, ESIDRIX) 25 mg tablet Take 1 tablet by mouth once daily. omeprazole (PRILOSEC) 20 mg capsule Take 1 capsule by mouth daily before breakfast. 1/2 hr before meal. ? No current facility-administered medications for this visit.? ? ALLERGIES:?Bactrim [Sulfamethoxazole-Trimethoprim]; Levaquin [Levofloxacin] ? PERSONAL HISTORY:? SOCIAL?HISTORY Social History ??Socioeconomic History ?Marital status: ?Spouse name: Not on file ?Number of children: 3 ?Years of education: Not on file ?Highest education level: Not on file ??Social Needs ?Financial resource strain: Not on file ?Food insecurity - worry: Not on file ?Food insecurity - inability: Not on file ?Transportation needs - medical: Not on file ?Transportation needs - non-medical: Not on file ??Occupational History ?Not on file ??Tobacco Use ?Smoking status: Former Smoker ?Packs/day: 1.50 ?Years: 50.00 ?Pack years: 75 ?Types: Cigarettes ?Start date: 09/05/1959 ?Quit date: 09/05/2009 ?Years since quittin.4 ?Smokeless tobacco: Former User ?Types: Chew ?Quit date: 05/06/2018 ?Tobacco comment: quit smoking and chewing tobacco ??Substance and Sexual Activity ?Alcohol use: No ?Drug use: No ?Sexual activity: Not on file ??Other Topics ?Concerns: ? Service: Not Asked ?Blood Transfusions: No ?Caffeine Concern: No ?Occupational Exposure: Not Asked ?Hobby Hazards: No ?Sleep Concern: No ?Stress Concern: No ?Weight Concern: No ?Special Diet: No ?Back Care: Not Asked ?Exercise: No ?Bike Helmet: Not Asked ?Seat Belt: Not Asked ?Self-Exams: Not Asked ??Social History Narrative ?Not on file ?? ? FAMILY HISTORY:? FAMILY?HISTORY FAMILY HISTORY Problem Relation Age of Onset ? Diabetes Father ? ? Stroke Father ? ? Stroke Mother ? ? Alzheimer's Disease Mother ? ? Cancer Brother ?throat ca ? ? REVIEW OF SYMPTOMS: ??The review of systems data was entered by the nurse and reviewed by me ? Nursing Notes: Yue Castillo LPN ?02/21/2019 ?8:26 AM ?Signed REVIEW OF SYSTEMS: ?General:???The patient denies fatigue, denies weight loss, denies weight gain, denies feeling hot, and denies feelings of cold. ?Eyes: ?The patient denies glaucoma, NOTES eye injury/surgery, does not wear glasses or contacts. ?Ear/Nose/Throat: ?The patient denies allergies, denies hayfever, denies ear infections, and denies bloody noses. ?Cardiovascular: ?The patient denies chest pain, denies heart disease, NOTES high blood pressure,denies cardiac stent, denies prior heart attack, denies irregular heart beat, denies high cholesterol, ?denies poor circulation, denies heart failure, other cardiac issues, denies claudication, denies cold feet, denies peripheral arterial stent. ?Respiratory: ?The patient denies tuberculosis, denies pneumonia, denies frequent cough, NOTES pulmonary embolism, denies shortness of breath, and denies coughing up blood. ?Gastrointestinal: ?The patient denies difficulty swallowing, denies acid reflux, denies ulcers, denies vomiting, denies jaundice/hepatitis, denies gallbladder problems, denies black or tarry stools, denies hemorrhoids, denies bleeding from rectum, denies diverticulitis, denies constipation, denies diarrhea, denies loss of stool control, and denies hernias. ?Kidney/Bladder: ?The patient denies kidney stones, denies urine infections, and denies bloody urine. ?Skin: ?The patient denies a history of skin cancer, denies bleeding/changing moles, and denies a history of skin rash. ?Neurologic: ?The patient denies a history of epilepsy/convulsions, denies headaches, denies head/spinal injuries, and denies stroke/TIA. ?Psychiatric: ?The patient denies psychiatric medications, denies depression, and denies voices, denies substance abuse. ?Endocrine: ?The patient denies thyroid disorders, denies diabetes, and denies hormonal problems. ?Hematologic: ?The patient denies a history of bruising, denies bleeding, and denies anemia, denies blood clots. ?Infections: ?The patient denies a history of measles and mumps, denies rheumatic fever, and denies sexually transmitted diseases. ?Musculoskeletal: ?The patient denies back pain/injury, denies back problems, denies sciatica, denies knee/foot trouble, denies arthritis, or denies gout. ? ? When was patient's last Mammogram screening? N/A ? ?Last Colonoscopy: ?01/2016 ? Yue Castillo LPN? I have confirmed and edited as necessary, the PFSH and ROS obtained by others. ? ? PHYSICAL EXAMINATION: ? General: ?The patient is 68 year old male, well nourished, well hydrated in no acute distress. ?The patient is oriented to time, place, and person. ? VITALS:?Blood pressure 122/70, pulse 63, temperature 36.3 ?C (97.3 ?F), temperature source Temporal Artery, resp. rate 20, height 175.3 cm (5' 9), weight 96.6 kg (213 lb), SpO2 96 %.?Body mass index is 31.45 kg/m?.? ? HEENT: ?Normal cephalic, ataumatic, pupils are equally round, sclera are anicteric, mucous membranes are moist, oropharynx is clear. ?Neck has no masses, asymmetry or lymphadenopathy. ? ? Respiratory: ?Clear to auscultation and percussion. ?Normal respiratory excursion and pattern. ? Cardiac: ?Examination is regular rate and rhythm. ?Normal S1/S2 ? Abdominal exam: ?Soft, nontender, ?with no palpable masses. ?No h epatosplenomegaly. ?No palpable hernias. ? Extremities: ?no clubbing, cyanosis or edema. ?No adenopathy. ? LABORATORY VALUES: As Noted ? RADIOLOGIC STUDIES: ?As Noted ? ? Assessment ? IMPRESSION:?encounter for screening colonoscopy ? PLAN: ?I have reviewed my findings with the surgeon. ?Will plan for lower?endoscopy. ??We discussed the risks and benefits of the planned endoscopy. ?I have informed the patient that complications can occur including failure to complete the endoscopy and perforation. ?The patient had the opportunity to ask questions concerning the planned endoscopy. ?My staff has also explained the procedure to the patient in understandable terms and has given the patient printed material concerning the procedure. ?The patient freely consents to surgery. ? I plan to use?Golytely?bowel preparation ? Patient to remain on all routine medications, including his anticoagulation, for the procedure. ? We will plan for Monitored Anesthetic Care. ? ? Diagnoses:?(Z86.010) Personal history of colonic polyps ?(primary encounter diagnosis) (Z79.01) Chronic anticoagulation ? ? Raisa Alas PA-C
[2019-03-21 05:52] VITALS: BP 126/89; PULSE 64; RESP 16; TEMP 36.8; O2SAT 96; BMI 30.5
[2019-03-21 06:21] LABS: Prothrombin Time Fingerstick 19.7 SEC (11.9-14.4)
--- NOTE | 2019-03-21 06:30 | COLBX_PTH ---
PATIENT: JOVANI QUINONES LOC: EN U#:[id number] AGE/SX: 68/M ROOM: RE03/21/[address]: Dr. Som Loew MD : 1950 BED: DIS: 03/21/2019 SPEC #: [id number] RECD: 03/21/19 08:16 STATUS: BHUPENDRA REJulian #: [id number] KAYLA: 03/21/19 06:[address]: Som Lowe DEPT: SURGICAL PATHOLOGY RECD BY: Pavan Martin ENTERED: 03/21/19 12:34 SP TYPE: COLON BX AVINASH DR: Dr. Herminio Yee MD Tissues: A - Cecum, NOS B - Transverse colon C - Descending colon D - Sigmoid colon biopsy Procedures: Surgery Specimen Level IV HEADER OPERATION: Colonoscopy ([facility]) PRE-OP DIAGNOSIS: Screening, history colon polyps TISSUE SUBMITTED: A - Cecal polyp, B - Transverse colon polyp, C - Descending colon polyp, D - Sigmoid polyp MICROSCOPIC DIAGNOSIS A. Cecal polyp, biopsy: Cauterized fragment of colonic tissue with hyperplastic change. Fecal debris. B. Transverse colon polyp, biopsy: Hyperplastic polyp. C. Descending colon polyp, biopsy: Tubular adenoma. D. Sigmoid colon polyp, biopsy: Fragments of tubular adenoma. AM:ajmes 03/22/19 MICROSCOPIC DESCRIPTION Slides are reviewed. GROSS DESCRIPTION A - Received in fixative is one container labeled with the patient's name and designated cecal polyp. The specimen predominantly consists of fecal material mixed with a few fragments of possible chavez soft tissue measuring in aggregate 1 x 0.1 x 0.1 cm. The specimen is totally submitted in one cassette. B - Received in fixative is one container labeled with the patient's name and designated polyp of transverse colon. The specimen consists of two irregular fragments of light chavez soft tissue mixed with fecal material that in aggregate measure 0.3 x 0.1 x 0.1 cm. The specimen is totally submitted in one cassette. C - Received in fixative is one container labeled with the patient's name and designated descending colon polyp. The specimen consists of a chavez-pink polyp measuring 0.8 x 0.5 x 0.4 cm. The specimen is bisected and submitted entirely in one cassette. D - Received in fixative is one container labeled with the patient's name and designated sigmoid polyp. The specimen consists of multiple irregular fragments of chavez-pink polyp that in aggregate measure 1 x 1 x 0.4 cm. The entire specimen is submitted in one cassette. / SJ:james 03/21/19 TC:5 CPT: 49806 x4
[2019-03-21 07:00] VITALS: BP 106/67; BP 126/89; PULSE 63; RESP 18; TEMP 36.5; O2SAT 95
[2019-03-21 07:05] VITALS: BP 117/74; BP 126/89; PULSE 63; RESP 18; O2SAT 92
--- NOTE | 2019-03-21 07:05 | OP.ENDO_ITS ---
03/21/2019 Herminio Yee MD Re : Colonoscopy procedure for Jerome Holman Dear Dr. Yee This procedure was performed on Thursday, March 21, 2019. My impressions and recommendations are as follows: Impressions : - Two small polyps in the transverse colon and in the cecum, removed with a hot snare. Resected and retrieved. - Two medium polyps in the sigmoid colon and in the descending colon, removed with a hot snare. Resected and retrieved. - Diverticulosis in the entire examined colon. - The examination was otherwise normal. - The distal rectum and anal verge are normal on retroflexion view. Recommendations : - Discharge patient to home. - Resume previous diet. - Continue present medications. - Await pathology results. - Repeat colonoscopy in 3 years for surveillance of multiple polyps. My findings are described in the full procedure note, which is enclosed. If I can be of further assistance, please feel free to contact me at Doctor phone number(s): , Work: . Sincerely, Som Lowe MD 03/21/2019 7:05:39 AM This report has been signed electronically.
[2019-03-21 07:10] VITALS: BP 123/76; BP 126/89; PULSE 60; RESP 16; O2SAT 95
[2019-03-21 07:19] VITALS: BP 126/89; BP 128/74; PULSE 62; RESP 18; TEMP 36.8; O2SAT 95
[2019-03-21 07:35] VITALS: BP 126/89
== END 2019-03-21 07:44 | disposition home or self-care (01) ==
LOC: EN 05:13 → AC 05:15
PROVIDERS: Family Provider Family Medicine; PCP Family Medicine; Referring Provider Family Medicine; Visit Provider Surgery
PROC: 0DJD8ZZ Inspection of Lower Intestinal Tract, Via Natural or Artificial Opening Endoscopic (ICD-10-PCS; CPT 45378; principal; 2019-03-21 06:25)
DX: Z12.11 Encounter for screening for malignant neoplasm of colon (principal); D12.4 Benign neoplasm of descending colon; D12.5 Benign neoplasm of sigmoid colon; K63.5 Polyp of colon; K57.30 Diverticulosis of large intestine without perforation or abscess without bleeding; I10 Essential (primary) hypertension; E78.5 Hyperlipidemia, unspecified; I25.10 Atherosclerotic heart disease of native coronary artery without angina pectoris; E66.9 Obesity, unspecified; J44.9 Chronic obstructive pulmonary disease, unspecified; K21.9 Gastro-esophageal reflux disease without esophagitis; L93.0 Discoid lupus erythematosus; E78.2 Mixed hyperlipidemia; Z86.718 Personal history of other venous thrombosis and embolism; Z86.711 Personal history of pulmonary embolism; Z79.01 Long term (current) use of anticoagulants; Z79.899 Other long term (current) drug therapy; Z87.891 Personal history of nicotine dependence
CPT/HCPCS: 45380; 36416; 85610; 88305; J7120; J2405

== ENCOUNTER → 2019-03-28 10:03 | Outpatient (CLI) | payer MEDICARE, OTHER, SELFPAY ==
[2019-03-21 05:52] VITALS: BMI 30.5
[2019-03-28 10:36] LABS: International Normalized Ratio 2.4; Prothrombin Time (Protime)PT. 26.1 SECONDS (11.7-14.9)
== END ==
PROVIDERS: Family Provider Family Medicine; PCP Family Medicine; Referring Provider Family Medicine; Visit Provider Family Medicine
DX: I82.220 Acute embolism and thrombosis of inferior vena cava (principal)
CPT/HCPCS: 85610

== ENCOUNTER 2024-11-15 01:38 | Emergency (ER) | payer MEDICARE, SELFPAY ==
[2024-11-15 01:39] VITALS: BP 139/83; PULSE 67; RESP 20; TEMP 36.6; O2SAT 98; BMI 26.6
--- NOTE | 2024-11-15 01:48 | EKG12_ITS ---
Test Reason : ABD PAIN Blood Pressure : */* mmHG Vent. Rate : 64 BPM Atrial Rate : 64 BPM P-R Int : 218 ms QRS Dur : 104 ms QT Int : 452 ms P-R-T Axes : 92 -34 28 degrees QTcB Int : 466 ms Sinus rhythm with 1st degree A-V block with occasional Premature ventricular complexes Left axis deviation Incomplete right bundle branch block Minimal voltage criteria for LVH, may be normal variant ( R in aVL ) Abnormal ECG When compared with ECG of 05-May-2018 11:55, Premature ventricular complexes are now Present Nonspecific T wave abnormality no longer evident in Lateral leads Confirmed by OCHOA GUAMAN, FLAQUITA ([id number]), associate entertainment editor MARTA BAUMANN ([id number]) on 11/19/2024 1:42:44 PM Referred By: Confirmed By: FLAQUITA PACKER MD
[2024-11-15 01:56] LABS: Absolute Lymphocyte Count 2.03 X10^3/uL (0.83-4.51); Absolute Neutrophil Count 4.5 X10^3/uL (2.0-7.7); Basophil# 0.04 X10^3/uL; Basophil% 0.5 % (0-1); Eosinophil# 0.14 X10^3/uL; Eosinophils% 1.9 % (0-5); Hematocrit 41.4 % (40-54); Hemoglobin 14.2 g/dL (13.0-16.5); Lymphocyte # 2.03 X10^3/ul (0.83-4.51); Lymphocyte % 27.5 % (19-41); Mean Corp Hgb Conc 34.3 g/dL (32-36); Mean Corpuscular Hgb 32.9 pg (27.0-32.0); Mean Corpuscular Volume 95.8 fL (80-94); Mean Platelet Vol. 10.8 fl (6.2-12.0); Monocyte% 9.5 % (0-10); NRBC Flagged by Analyzer 0 % (0-5); Neutrophil # 4.45 X10^3/uL (2.7-7.7); Neutrophil % 60.3 % (47-70); Platelet Count 125 K/mm3 (150-450); RBC Distribution Width CV 13.1 % (11.6-14.6); RBC Distribution Width SD 46.5 fl (35.1-43.9); Red Blood Count 4.32 M/mm3 (4.6-6.2); White Blood Count 7.4 K/mm3 (4.4-11.0)
--- NOTE | 2024-11-15 02:03 | ED.VIS.GI ---
HPI HPI - GI History of Present Illness Chief Complaint: Abd Pain Informant: patient Narrative Narrative: Patient is a 74-year-old male with a history of blood clots on chronic Coumadin therapy, hypertension, hyperlipidemia and BPH as well as gallstones presenting with worsening epigastric abdominal pain. Patient states he had recently been admitted at [facility] on 11/11 for concern of acute cholecystitis. Patient had HIDA scan which was not consistent with acute cholecystitis on 11/12/2024. ED he thought he was going to have his gallbladder removed but was actually discharged home with a short course of Cushing for pain control. Has an appointment with Dr. Lowe on 11/27 for cholecystectomy. States he had been doing okay since he was discharged but then had an episode of pain lasting for 20 to 30 minutes at 3 PM today. States he had not eaten anything right before that. States his epigastric region radiates to his back. This for like prior episodes. It resolved however then around 9 PM he had another episode of the same pain however this time the pain is not resolved. Patient states that he had mass potatoes and hamburger for dinner. He states the pain is never lasted this long. Denies any fever chills. Has some mild nausea associated with the pain but is not had any vomiting. Denies any change in his bowel movements. Came in for further evaluation and pain control. Did take Cushing at 11 PM with no relief of his pain. [facility] Medical History Gallstone Home Medications ?Medication ?Instructions ?Recorded ?Last Taken ?Type atorvastatin 20 mg tablet 20 mg PO QHS cholesterol lowering 06/29/17 05/04/18 History doxazosin 8 mg tablet 8 mg PO QHS prostate 06/29/17 05/04/18 History omeprazole 20 mg capsule,delayed 20 mg PO DAILY acid reflux 06/29/17 03/21/19 05:00 History release carvedilol 12.5 mg tablet 6.25 mg PO QHS 03/16/19 03/21/19 05:00 History warfarin 2.5 mg tablet 2.5 mg PO MOTUWETHFRSA 03/16/19 Unknown History amlodipine 10 mg tablet 10 mg PO DAILY 11/15/24 Unknown History warfarin 2.5 mg tablet 1.25 mg PO ACE 11/15/24 Unknown History Allergy/AdvReac Type Severity Reaction Status Date / Time levofloxacin (From Levaquin) AdvReac Mild Nausea/Vom/ Verified 11/15/24 01:39 Diarrhea Social History Smoking Status: Former smoker ROS ROS ED Constitutional Constitutional ED: Denies chills or fever(s) Respiratory/Chest Respiratory/Chest: Denies cough Gastrointestinal Gastrointestinal: Reports abdominal pain and nausea; Denies constipation, diarrhea, melena or vomiting Genitourinary Genitourinary ED: Denies dysuria Musculoskeletal Musculoskeletal: Denies arthralgias or myalgias Neurologic Neurologic: Denies weakness Hematologic/Lymphatic Hematologic/Lymphatic: Reports easy bleeding, easy bruising and other Details: On Coumadin EXAM Physical Exam Const Vital Signs: 11/15/24 01:39 11/15/24 03:00 11/15/24 05:00 Temperature 97.8 F Temperature Source Oral Pulse Rate 67 67 83 Respiratory Rate 20 H 12 18 Blood Pressure 139/83 H 144/79 H 118/87 H Blood Pressure Mean 101 100 97 Pulse Ox 98 98 95 Oxygen Delivery Method Room Air Room Air Positive well nourished and well developed General Appearance ED: well developed; Negative for pallor HEENT Reports moist mucous membranes Eyes PERRL General Eye ED: Negative for scleral icterus Neck supple and no JVD Resp normal respiratory effort and clear to auscultation bilaterally Cardio regular rate, regular rhythm and no murmurs GI Inspection: Negative for abdominal distention Auscultation: normoactive bowel sounds Palpation: soft and tender epigastric, RUQ and Armas's sign; Negative for guarding or rigid Back/Spine no CVA tenderness Extremity full ROM General Extremety ED: Negative for edema General Extremity: Negative for edema Neuro moves all extremities Sensorium / Orientation: alert Motor Exam: Negative for general weakness Psych mental status grossly normal and thought process normal Skin General Skin Exam: Negative for jaundice or pallor MDM MDM MDM Narrative Medical decision making narrative: Patient's evaluated for worsening epigastric/right upper quadrant abdominal pain. Had recent admission earlier this week at [facility] for concern of cholecystitis. Outside records from [facility] reviewed which shows that he had HIDA scan which did not show acute cholecystitis and plan for outpatient elective cholecystectomy and low-fat diet. Patient is having worsening pain. He is quite uncomfortable upon arrival. He requires 2 doses of Dilaudid for pain control. Is given gentle IV fluids as well as Zofran. Differential includes symptomatic cholelithiasis, choledocholithiasis ascending cholangitis, pancreatitis. CBC and CMP largely normal. Total bilirubin normal with mild elevation of direct bilirubin of 0.65 which is nonspecific. AST mildly elevated at 52. On 11/12/2024 patient's AST was 22. Total bili was 0.7. This is a mild increase. INR is therapeutic at 3.3. Case discussed with general surgery, Dr. Christianson, who does recommend ultrasound. Patient is more comfortable but continues to have pain. He is quite uncomfortable to idea of going home and his pain worsening again. Will be signed out to oncoming physician pending ultrasound result for final disposition. History & Record Review Additional record(s) reviewed:: Prior inpatient record ([facility] records from admission at [facility] 11/11 through 11/13/2024-see MDM) Lab Data Attestation: I reviewed the patient's lab results. Labs: Laboratory Results - last 24 hr 11/15/24 11/15/24 01:48 02:10 WBC 7.4 RBC 4.32 L Hgb 14.2 Hct 41.4 MCV 95.8 H MCH 32.9 H MCHC 34.3 RDW Std Deviation 46.5 H RDW Coeff of Jes 13.1 Plt Count 125 L MPV 10.8 Immature Gran % (Auto) 0.300 Neut % (Auto) 60.3 Lymph % (Auto) 27.5 [place] % (Auto) 9.5 Eos % (Auto) 1.9 Baso % (Auto) 0.5 Absolute Neuts (auto) 4.5 Absolute Lymphs (auto) 2.03 Nucleated RBC % 0 PT 34.3 H INR 3.3 Sodium 138 Potassium 3.8 Chloride 103 Carbon Dioxide 21.4 Anion Gap 13 BUN 21 H Creatinine 1.17 Estim Creat Clear Calc 53.71 Est GFR (MDRD) Non-Af 65 BUN/Creatinine Ratio 17.6 Glucose 118 H Calcium 9.8 Total Bilirubin 1.08 Direct Bilirubin 0.65 H AST 52 H ALT 36 Alkaline Phosphatase 57 Total Protein 6.5 Albumin 4.2 Globulin 2.2 Lipase 32 Rhythm Strip Rhythm Strip: Sinus Rhythm Rate: 64 Ectopy: None EKG Initial EKG: Attestation: I personally reviewed and interpreted this EKG as follows: Interpretation: Sinus Rhythm Comments: Normal sinus rhythm first-degree AV block at a rate of 64 bpm PVCs present NJ interval 218 Normal QRS and QTc Incomplete right bundle branch block Left axis deviation Normal Prior EKG tracings: available for review Prior: Unchanged Management Discussion w/another healthcare provider: 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 Discharge Plan Triage Chief Complaint: Abd Pain ED Provider: Lazara Vega Dx/Rx/DC Orders Clinical Impression: Symptomatic cholelithiasis, Current use of penitentiary anticoagulation Prescriptions: No Action atorvastatin 20 MG tablet 20 mg PO QHS doxazosin 8 MG tablet 8 mg PO QHS omeprazole 20 MG capsule,delayed release(DR/EC) 20 mg PO DAILY carvedilol 12.5 MG tablet 6.25 mg PO QHS warfarin 2.5 MG tablet 2.5 mg PO MOTUWETHFRSA amlodipine 10 mg tablet 10 mg PO DAILY warfarin 2.5 mg tablet 1.25 mg PO ACE Primary Care Provider: Herminio Yee Referrals: Herminio Yee MD [Primary Care Provider] - Print Language: Burundian
[2024-11-15] MEDS: 0.9% Normal Saline (1000mL) 1,000 ML 150 ML IV (02:14)
[2024-11-15] MEDS: Ondansetron 4 MG/2 ML Vial IV (02:14)
[2024-11-15] MEDS: HYDROmorphone 0.5 MG/0.5 ML SYRINGE IV ×2 (02:14→03:02)
[2024-11-15 02:21] LABS: AST(SGOT) 52 U/L (<=37); Alanine Aminotransfer ALT/SGPT 36 U/L (<=46); Albumin, Serum 4.2 g/dL (3.4-4.8); Alkaline Phosphatase 57 U/L (40-129); Anion Gap 13 (5-15); BUN 21 mg/dL (4-19); BUN/Creat Ratio 17.6 RATIO (10-20); Bilirubin, Direct 0.65 mg/dL (0.00-0.30); Calcium,Total 9.8 mg/dL (7.6-11.0); Carbon Dioxide 21.4 mmol/L (21.0-32.0); Chloride 103 mmol/L (98-108); Creatinine, Serum 1.17 mg/dL (0.70-1.20); EST Glomerular Filtration Rate 65 (>60); Estimated Creatinine Clearance 53.71 ml/min (50-250); Globulin 2.2 g/dL (2.2-4.2); Glucose 118 mg/dL (70-99); Lipase 32 U/L (13-75); Potassium 3.8 mmol/L (3.3-5.1); Protein, Total 6.5 g/dL (5.9-8.4); Sodium Level 138 mmol/L (133-145); Total Bilirubin 1.08 mg/dL (0.00-1.30)
[2024-11-15 02:38] LABS: International Normalized Ratio 3.3; Prothrombin Time (Protime)PT. 34.3 SECONDS (11.7-14.9)
[2024-11-15 03:00] VITALS: BP 144/79; PULSE 67; RESP 12; O2SAT 98
--- NOTE | 2024-11-15 04:47 | US_ITS ---
PROCEDURE: ABDOMEN LIMITED REASON FOR EXAM: RUQ ABD PAIN COMPARISON: None FINDINGS: Liver: Grossly normal size and echotexture. Gallbladder: Solitary gallstone in the neck of the gallbladder. Several tiny gallbladder polyps adherent to the gallbladder wall. Mildly thickened gallbladder wall measuring 4 mm. Common bile duct: Normal measuring it measures 6 mm.. Pancreas: Obscured by bowel gas. Visualized portions of the right kidney are unremarkable. No right upper quadrant ascites. US/Abdomen Limited IMPRESSION: Solitary gallstone in the neck of the gallbladder. Several tiny gallbladder polyps. Mild thickening of the gallbladder wall. Reading Location: [id number]
[2024-11-15 05:00] VITALS: BP 118/87; PULSE 83; RESP 18; O2SAT 95
[2024-11-15 09:00] VITALS: BP 104/60; PULSE 70; O2SAT 92
--- NOTE | 2024-11-15 10:16 | ED.RN ---
DR YU HERE TO SEE PT. INITIALLY PLAN TO TAKE PT TO SURGERY TODAY. AFTER RE-EVALUATION PER DR YU, PT WILL BE DISCHARGED HOME WITH PLAN FOR OUTPATIENT FOLLOW-UP
[2024-11-15 10:32] VITALS: BP 127/109; PULSE 67; RESP 16; TEMP 36.6; O2SAT 97
--- NOTE | 2024-11-15 10:47 | PCM.HP.STD ---
[facility] - [facility] Date of Service: 11/15/24 Chief Complaint: Epigastric/right upper quadrant pain HPI Narrative JOVANI QUINONES, is a 74 M who presents with a 1 day history of worsening abdominal pain. Patient stated his pain started yesterday afternoon. He does not relate his symptoms to anything specific. He is unsure if they are food related. He notes the pain is located in the epigastric region and radiates straight into his back. Patient states the pain occurred again at 9pm last night and lasted all night until 0400AM when he could not handle the pain any longer, called the squad and came into the ED. Patient notes associated nausea with the pain. He notes occasional vomiting with the pain. He denies any bowel habit changes. He states he had a similar attack on Tuesday and was brought to the [place] ED by his family. He was admitted and told that he would have his gallbladder removed. He was discharged on Tuesday without any intervention and never saw a surgeon during his admission. He was scheduled with Dr. Lowe for 11/27 to follow-up with. Patient denies any previous abdominal surgeries. He is on Coumadin for A Fib. He last took his Coumadin yesterday at 4:00pm. He states he follows with Dr. Pulido cardiology at [facility]. He notes he recently has been evaluated by his nailhead puncher for his upcoming surgery on 11/[address] Lowe. He denies any history of cardiac stents, myocardial infarction, stroke, blood clots. 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 He denies any shortness of breath with rest or activity. He denies any previous complications or side effects with anesthesia. He states he has sleep apnea, however does not sleep with a CPAP because it was not comfortable. Abdominal u/s was obtained demonstrating solitary gallstone in the neck of the gallbladder. Several tiny gallbladder polyps. Mild thickening of the gallbladder wall. WBC is 7.4, Hgb 14.2, Hct 41.4, plt 125. INR 3.3. T Bili 1.08, AST 52, ALT 36, Alk Phos 57. [facility] Medical History Gallstone Home Medications ?Medication ?Instructions ?Recorded ?Last Taken ?Type atorvastatin 20 mg tablet 20 mg PO QHS cholesterol lowering 06/29/17 05/04/18 History doxazosin 8 mg tablet 8 mg PO QHS prostate 06/29/17 05/04/18 History omeprazole 20 mg capsule,delayed 20 mg PO DAILY acid reflux 06/29/17 03/21/19 05:00 History release carvedilol 12.5 mg tablet 6.25 mg PO QHS 03/16/19 03/21/19 05:00 History warfarin 2.5 mg tablet 2.5 mg PO MOTUWETHFRSA 03/16/19 Unknown History amlodipine 10 mg tablet 10 mg PO DAILY 11/15/24 Unknown History oxycodone-acetaminophen 5 mg-325 1 tab PO Q6H PRN PRN pain 5 days 11/15/24 Unknown Rx mg tablet #20 TABLETS warfarin 2.5 mg tablet 1.25 mg PO ACE 11/15/24 Unknown History Allergy/AdvReac Type Severity Reaction Status Date / Time [facility] [place] [place] AdvReac Mild Nausea/Vom/ Verified 11/15/24 01:39 Diarrhea Social History Smoking Status: Former smoker ROS Constitutional Constitutional: Reports systems reviewed and no addt'l complaints, except as documented Eyes Eyes: Reports systems reviewed and no addt'l complaints, except as documented ENT HEENT: Reports systems reviewed and no addt'l complaints, except as documented Cardiovascular Cardiovascular: Reports systems reviewed and no addt'l complaints, except as documented Respiratory/Chest Respiratory/Chest: Reports systems reviewed and no addt'l complaints, except as documented Gastrointestinal Gastrointestinal: Reports systems reviewed and no addt'l complaints, except as documented Genitourinary Genitourinary: Reports systems reviewed and no addt'l complaints, except as documented Musculoskeletal Musculoskeletal: Reports systems reviewed and no addt'l complaints, except as documented Integumentary Integumentary: Reports systems reviewed and no addt'l complaints, except as documented Neurologic Neurologic: Reports systems reviewed and no addt'l complaints, except as documented Psychiatric Psychiatric: Reports systems reviewed and no addt'l complaints, except as documented Endocrine Endocrinology: Reports systems reviewed and no addt'l complaints, except as documented Hematologic/Lymphatic Hematologic/Lymphatic: Reports systems reviewed and no addt'l complaints, except as documented Allergic/Immunologic Allergic/Immunologic: Reports systems reviewed and no addt'l complaints, except as documented Vital Signs Vital Signs Vital Signs: 11/15/24 01:39 11/15/24 03:00 11/15/24 05:00 Temperature 97.8 F Temperature Source Oral Pulse Rate 67 67 83 Respiratory Rate 20 H 12 18 Blood Pressure 139/83 H 144/79 H 118/87 H Blood Pressure Mean 101 100 97 Pulse Ox 98 98 95 Oxygen Delivery Method Room Air Room Air 11/15/24 09:00 11/15/24 10:32 Temperature 97.8 F Temperature Source Pulse Rate 70 67 Respiratory Rate 16 Blood Pressure 104/60 127/109 H Blood Pressure Mean 74 115 Pulse Ox 92 97 Oxygen Delivery Method Room Air Weight Weight: 180 lb 1.883 oz Body Mass Index (BMI) 26.6 Physical Exam Const alert, oriented x3 and no apparent distress HEENT normocephalic and head/scalp atraumatic Eyes PERRL Neck full ROM Resp normal respiratory effort and clear to auscultation bilaterally Cardio regular rate and regular rhythm GI GI Narrative: Abdomen- soft, slight tenderness in the epigastric region. Negative Armas's sign. Positive bowel sounds no CVA tenderness Back/Spine no CVA tenderness Extremity normal to inspection Skin no rashes or lesions noted Neuro no focal motor deficits and no sensory deficits noted Psych mental status grossly normal Results Lab / Micro Data 11/15/24 01:48 11/15/24 01:48 Labs: Laboratory Results - last 24 hr 11/15/24 01:48: WBC 7.4, RBC 4.32 L, Hgb 14.2, Hct 41.4, MCV 95.8 H, MCH 32.9 H, MCHC 34.3, RDW Std Deviation 46.5 H, RDW Coeff of Jes 13.1, Plt Count 125 L, MPV 10.8, Immature Gran % (Auto) 0.300, Neut % (Auto) 60.3, Lymph % (Auto) 27.5, [place] % (Auto) 9.5, Eos % (Auto) 1.9, Baso % (Auto) 0.5, Absolute Neuts (auto) 4.5, Absolute Lymphs (auto) 2.03, Nucleated RBC % 0, Sodium 138, Potassium 3.8, Chloride 103, Carbon Dioxide 21.4, Anion Gap 13, BUN 21 H, Creatinine 1.17, Estim Creat Clear Calc 53.71, Est GFR (MDRD) Non-Af 65, BUN/Creatinine Ratio 17.6, Glucose 118 H, Calcium 9.8, Total Bilirubin 1.08, Direct Bilirubin 0.65 H, AST 52 H, ALT 36, Alkaline Phosphatase 57, Total Protein 6.5, Albumin 4.2, Globulin 2.2, Lipase 32 11/15/24 02:10: PT 34.3 H, INR 3.3 Rhythm Strip Rhythm Strip: Sinus Rhythm Rate: 64 Ectopy: None Imaging Radiology Impression Abdomen Ultrasound 11/15/24 04:47 IMPRESSION: Solitary gallstone in the neck of the gallbladder. Several tiny gallbladder polyps. Mild thickening of the gallbladder wall. Reading Location: [id number] Assessment & Plan Assessment/Plan (1) Symptomatic cholelithiasis: (2) Current use of manager asset management anticoagulation: PLAN: Plan I am seeing this patient in conjunction with Dr. Christianson. He has independently evaluated this patient. Patient presents with chronic biliary colic from his cholelithiasis. Patient's RUQ u/s and examination show gallbladder disease, however not acute cholecystitis. It has been discussed with the patient that he has a stone in the neck of the gallbladder, which is likely the cause of the epigastric pain each time he eats, especially a fatty meal. Patient's WBC is normal with no left shift. His AST is slightly elevated, otherwise normal liver enzymes. He is not jaundice. We discussed with the patient that he will need to have a cholecystectomy as an outpatient, not acutely. Patient will need to refrain from fatty, greasy foods. He will need to stay on a low fat diet, consuming lean meats. He will need to avoid especially butter, salad dressing and red meats. He will need to hold his Coumadin for 5 days prior to the procedure. Our office has sent a cardiac clearance form to Dr. Cano's, patient's nailhead puncher out of [facility]. Our counter sales person will schedule patient for next Tuesday, 11/21, for a laparoscopic cholecystectomy with intraoperative cholangiogram with Dr. Christianson. Procedure details, risks and benefits have been explained to the patient. Patient has had the opportunity to ask and have questions answered. Patient will be discharged from the ED and given instructions from our office for surgery. Patient's INR will be rechecked the morning of surgery. Patient's INR will need to be below 1.5. Charges/Coding Visit Charges OBSV E&M: 57602 Observ/hosp same date L2
== END 2024-11-15 11:02 | disposition home or self-care (01) ==
LOC: ED 03:01 → SDC 09:47 → ACINP 10:26 → ED 12-13 15:48
PROVIDERS: Emergency Medicine; Emergency Provider Emergency Medicine; PCP Family Medicine; Visit Provider Emergency Medicine
DX: K80.70 Calculus of gallbladder and bile duct without cholecystitis without obstruction (principal); I48.91 Unspecified atrial fibrillation; Z87.891 Personal history of nicotine dependence; E78.5 Hyperlipidemia, unspecified; Z79.01 Long term (current) use of anticoagulants; I10 Essential (primary) hypertension
CPT/HCPCS: 76705; 80048; 80076; 83690; 85025; 85610; 93005; 99285; A4216; J2405

== ENCOUNTER 2024-11-21 12:06 | Observation (INO) | payer MEDICARE, SELFPAY ==
--- NOTE | 2024-11-19 14:56 | PAT.ANESEVAL ---
Pre-Assessment Diagnosis/Proposed Procedure Planned Operative Procedure(s): Laparoscopic, Cholecystectomy with IOC Anesthesia History Anesthesia History - appliance tester: Anesthesia History - appliance tester Hx [facility] 11/16/24 10:08 GALLBLADDER ATTACK Any Problems With Anesthesia No 11/16/24 10:08 Cholinesterase deficiency No 11/16/24 10:08 You/Your Family Experience No 11/16/24 10:08 fever (hyperthermia) with Relationship Recent Exposure to Contagious No 03/21/19 05:52 Disease Does patient have nerve No 11/16/24 10:08 stimulator Patient instructed to have device shut off --Does patient have Pacemaker or ICD? When Was Last Pacemaker Check QUESTION #4 FULL TEXT: You/Your Family Experience fever (hyperthermia) with Anesthesia Last Oral Intake Last Oral intake: Last Oral Intake NPO since Meds taken in AM with sips of water? Meds patient instructed to take am of surgery PONV PONV - appliance tester: PONV - appliance tester Female Yes 11/16/24 10:08 HX of Motion Sickness No 11/16/24 10:08 HX of N/V After Surgery No 11/16/24 10:08 Non-Smoker Yes 11/16/24 10:08 Duration of Surgery greater No 11/16/24 10:08 than 60 minutes Number of Risk Factors 2 11/16/24 10:08 PONV Score Moderate Risk 11/16/24 10:08 Height & Weight Height & Weight: Anesthesia: Height & Weight Height 5 ft 9 in 11/15/24 01:39 Respiratory Assessment Respiratory Assessment - appliance tester: Respiratory Tract Infection Hx - appliance tester Hx Respiratory Tract Infection No 11/16/24 10:08 STOP Sleep Apnea STOP Sleep Apnea - appliance tester: STOP Sleep Apnea - appliance tester Hx Hypertension Yes: CONTROLLED WITH MED 11/16/24 10:08 Hx Sleep Apnea Yes: NON COMPLAINT 11/16/24 10:08 CPAP Yes: NON COMPLAINT 11/16/24 10:08 BIPAP No 11/16/24 10:08 Do you snore loudly (louder than talking or can be heard Do you often feel tired/ fatigued/ sleepy during daytime? Has anyone observed you stop breathing during sleep? STOP Results Positive 11/16/24 10:08 QUESTION #5 FULL TEXT : Do you snore loudly (louder than talking or can be heard through closed doors)? Tobacco Use History Tobacco Use History - appliance tester: Tobacco Use History - appliance tester Tobacco Use Smoking Status Former smoker 11/16/24 10:08 Hx Tobacco Use Yes: chew 11/16/24 10:08 Years Smoking Packs Smoked per Day Smoking Cessation Date was No - quit smoking greater 11/16/24 10:08 within the last 15 years than 15 years ago Hx Smoking Cessation Date 09/05/09 11/16/24 10:08 Hx Smoking Cessation No 11/16/24 10:08 Counseling Hematologic Medial History Hematologic Hx - appliance tester: Hematologic Medical Hx - documentation specialist Hx of Blood Transfusion No 11/16/24 10:08 Hx of Transfusion in last 3 No 11/16/24 10:08 Months Date of Last Transfusion (if within last 3 months) Ever experience any problems No 11/16/24 10:08 with transfusion(s)? Specify any problems Hx of Preganancy in last 3 N/A 11/16/24 10:08 Months Nurse Filling Out Transfusion NBUCHER 11/16/24 10:08 & Questions: Date: 11/16/24 11/16/24 10:08 Time: 10:12 11/16/24 10:08 Patient unable to answer at this time (ie. confused, unrespo /Reproduction History /Reproductive History - appliance tester: /Reproductive Hx- appliance tester Hx Now No 11/16/24 10:08 Gestational Age (in weeks): EDC: Hx Hx Para Hx Section SAB No 11/16/24 10:08 [facility] Medical History (Updated 11/16/24 @ 10:34 by Dinorah Benoit) [place]comb lung Wears hearing aid Loss of hearing Wears glasses Prostate disease High cholesterol Pulmonary embolism DVT (deep venous thrombosis) History of hiatal hernia CPAP (continuous positive airway pressure) dependence Sleep apnea Former smoker History of stress test History of echocardiogram Cardiology follow-up encounter Presence of IVC filter Gallstone Home Medications ?Medication ?Instructions ?Recorded ?Last Taken ?Type atorvastatin 20 mg tablet 20 mg PO QHS cholesterol lowering 06/29/17 05/04/18 History doxazosin 8 mg tablet 8 mg PO QHS prostate 06/29/17 05/04/18 History omeprazole 20 mg capsule,delayed 20 mg PO DAILY acid reflux 06/29/17 03/21/19 05:00 History release carvedilol 12.5 mg tablet 6.25 mg PO QHS 03/16/19 03/21/19 05:00 History warfarin 2.5 mg tablet 2.5 mg PO MOTUWETHFRSA 03/16/19 Unknown History amlodipine 10 mg tablet 10 mg PO DAILY 11/15/24 Unknown History oxycodone-acetaminophen 5 mg-325 1 tab PO Q6H PRN PRN pain 5 days 11/15/24 Unknown Rx mg tablet #20 TABLETS warfarin 2.5 mg tablet 1.25 mg PO ACE 11/15/24 Unknown History Allergy/AdvReac Type Severity Reaction Status Date / Time levofloxacin (From Levaquin) AdvReac Mild Nausea/Vom/ Verified 11/16/24 10:06 Diarrhea Surgical History History of cataract extraction with lens replacement History of back surgery History of lobectomy of lung Social History Smoking Status: Former smoker Audit: Pertinent Findings Pertinent Findings EKG Perinent findings: November 15, 2024. Sinus rhythm with first-degree AV block with occasional PVCs. Left axis deviation. Incomplete right bundle branch block. Echo (EF%) pertinent findings: March 03, 2021. Ejection fraction 60%. Visualized aorta is maximal dimension of 4.3 cm. No significant change from echo on 07/26/2019. Heart catheterization pertinent findings: July 03, 2021. LAD proximal 50% stenosis. Mid 30 to 40% luminal narrowing. Mid distal to apical portion of the LAD has minimal disease. Consult pertinent findings: October 29, 2024. Boaz GUAMAN. 1. Coronary artery disease of [place] arteries. Stable angina pectoris. Patient doing well without symptoms. Continue current medical therapy. 2. Thoracic aortic aneurysm-we will follow with serial echocardiograms. 3. Patient at low risk for planned procedure. Recommendation Anesthesia Recommendation Anesthesia recommendation: OPTIMIZED for anesthesia
--- NOTE | 2024-11-20 09:55 | EKG12_ITS ---
Test Reason : PRE OP Blood Pressure : */* mmHG Vent. Rate : 69 BPM Atrial Rate : 69 BPM P-R Int : 208 ms QRS Dur : 100 ms QT Int : 398 ms P-R-T Axes : 42 -35 34 degrees QTcB Int : 426 ms Normal sinus rhythm Possible Left atrial enlargement Left axis deviation Incomplete right bundle branch block Cannot rule out Anteroseptal infarct , age undetermined Abnormal ECG Confirmed by OCHOA GUAMAN, FLAQUITA ([id number]), editor continuity and script MARTA BAUMANN ([id number]) on 11/20/2024 1:05:17 PM Referred By: Gregory Christianson Confirmed By: FLAQUITA PACKER MD
[2024-11-21] VITALS (17 sets, daily range): BP systolic 81–125; BP diastolic 45–76; PULSE 64–102; RESP 16–18; TEMP 36–36.8; O2SAT 92–100; BMI 28.0
[2024-11-21] MEDS: 0.9% Normal Saline (1000mL) 1,000 ML 15 ML IV (06:23)
--- NOTE | 2024-11-21 06:45 | PCM.PRE.AN2 ---
ASA Classification* ASA Classification ASA Classification: 3 Assessment & Plan Anesthesia* Anesthesia Assessment Anesthesia Assessment: Discussed sedation and/or anesthesia options, risks, benefits, and alternatives with patient/parents/legal guardian/POA. Questions invited. The patient/parents/legal guardian/POA seems to understand and agrees to proceed with anesthesia plan. Reviewed the physical assessment, medical history, allergy history and patient home medications list prior to surgery/procedure/anesthetic and documented any changes. Performed airway and anesthesia risk assessments. Anesthesia Type Anesthesia Type: General (Consider GlideScope intubation.) History Source History Obtained from:: Patient and Chart Anesthesia Focused Assessment* Temperature: 97.7 F Pulse Rate: 64 Blood Pressure: 125/72 Respiratory Rate: 18 Pulse Ox: 100 Oxygen Delivery Method: Room Air Airway Assessment Mouth opens: >3 cm Mallampati Score: IV Teeth Condition: Caps/Crowns (Patient has caps on the top four front incisors. Rest of the teeth are tight.) Neck Range of motion (ROM): Limited ROM (Slight decrease in extension.) Focused Labs Anesthesia Preop lab: CBC WBC 7.4 K/mm3 (4.4-11.0) 11/15/24 01:48 11/15/24 RBC 4.32 M/mm3 (4.6-6.2) L 11/15/24 01:48 11/15/24 Hgb 14.2 g/dL (13.0-16.5) 11/15/24 01:48 11/15/24 Hct 41.4 % (40-54) 11/15/24 01:48 11/15/24 Plt Count 125 K/mm3 (150-450) L 11/15/24 01:48 11/15/24 CHEMISTRY Potassium 3.8 mmol/L (3.3-5.1) 11/15/24 01:48 11/15/24 Sodium 138 mmol/L (133-145) 11/15/24 01:48 11/15/24 Magnesium 2.1 mg/dL (1.6-2.6) 05/05/18 15:35 05/05/18 BUN 21 mg/dL (4-19) H 11/15/24 01:48 11/15/24 Creatinine 1.17 mg/dL (0.70-1.20) 11/15/24 01:48 11/15/24 Glucose 118 mg/dL (70-99) H 11/15/24 01:48 11/15/24 TSH 0.44 uIU/mL (0.358-3.74) 05/05/18 15:35 05/05/18 COAG PT 34.3 SECONDS (11.7-14.9) H 11/15/24 02:10 11/15/24 Pre-Assessment Diagnosis/Proposed Procedure Planned Operative Procedure(s): Laparoscopic, Cholecystectomy with IOC Anesthesia History 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 When Was Last Pacemaker Check QUESTION #4 FULL TEXT: You/Your Family Experience fever (hyperthermia) with Anesthesia Last Oral Intake Last Oral intake: Last Oral Intake NPO since 17:00 11/21/24 06:12 Meds taken in AM with sips of Yes 11/21/24 06:12 water? Meds patient instructed to AMLODIPINE, OMEPRAZOLE 11/21/24 06:12 take am of surgery Any additional information?: Yes Meds taken in AM with sips of water?: Yes PONV PONV - high school computer science teacher: PONV - high school computer science teacher Female Yes 11/16/24 10:08 HX of Motion Sickness No 11/16/24 10:08 HX of N/V After Surgery No 11/16/24 10:08 Non-Smoker Yes 11/16/24 10:08 Duration of Surgery greater No 11/16/24 10:08 than 60 minutes Number of Risk Factors 2 11/16/24 10:08 PONV Score Moderate Risk 11/16/24 10:08 Height & Weight Height & Weight: Anesthesia: Height & Weight Height 5 ft 9 in 11/21/24 06:12 Weight: 86 kg 11/21/24 06:12 Body Mass Index (BMI) 28.0 11/21/24 06:12 Respiratory Assessment Respiratory Assessment - high school computer science teacher: Respiratory Tract Infection Hx - high school computer science teacher Hx Respiratory Tract Infection No 11/16/24 10:08 STOP Sleep Apnea STOP Sleep Apnea - high school computer science teacher: STOP Sleep Apnea - high school computer science teacher Hx Hypertension Yes: CONTROLLED WITH MED 11/16/24 10:08 Hx Sleep Apnea Yes: NON COMPLAINT 11/16/24 10:08 CPAP Yes: NON COMPLAINT 11/16/24 10:08 BIPAP No 11/16/24 10:08 Do you snore loudly (louder than talking or can be heard Do you often feel tired/ fatigued/ sleepy during daytime? Has anyone observed you stop breathing during sleep? STOP Results Positive 11/16/24 10:08 QUESTION #5 FULL TEXT : Do you snore loudly (louder than talking or can be heard through closed doors)? 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 Specify any problems Hx of Preganancy in last 3 N/A 11/16/24 10:08 Months Nurse Filling Out Transfusion NBUCHER 11/16/24 10:08 & Questions: Date: 11/16/24 11/16/24 10:08 Time: 10:12 11/16/24 10:08 Patient unable to answer at this time (ie. confused, unrespo /Reproduction History /Reproductive History - high school computer science teacher: /Reproductive Hx- high school computer science teacher Hx Now No 11/16/24 10:08 Gestational Age (in weeks): EDC: Hx Hx Para Hx Section SAB No 11/16/24 10:08 Active Medications Active Medications: Current Medications Generic Name Dose Route Start Last Admin Trade Name Freq PRN Reason Stop Dose Admin Cefazolin Sodium 2 gm/ N/A 20 mls @ 400 mls/hr 11/21/24 07:30 IV 11/21/24 07:32 PREOP ONE Sodium Chloride 1,000 mls @ 15 mls/hr 11/21/24 06:05 11/21/24 06:23 IV 11/26/24 19:24 15 mls/hr .Q48H STEVO Administration PFSH Medical History Honeycomb lung Wears hearing aid Loss of hearing Wears glasses Prostate disease High cholesterol Pulmonary embolism DVT (deep venous thrombosis) History of hiatal hernia CPAP (continuous positive airway pressure) dependence Sleep apnea Former smoker History of stress test History of echocardiogram Cardiology follow-up encounter Presence of IVC filter Gallstone Home Medications ?Medication ?Instructions ?Recorded ?Last Taken ?Type atorvastatin 20 mg tablet 20 mg PO QHS cholesterol lowering 06/29/17 11/20/24 History doxazosin 8 mg tablet 8 mg PO QHS prostate 06/29/17 11/20/24 History omeprazole 20 mg capsule,delayed 20 mg PO DAILY acid reflux 06/29/17 11/21/24 History release carvedilol 12.5 mg tablet 6.25 mg PO QHS 03/16/19 11/20/24 History warfarin 2.5 mg tablet 2.5 mg PO MOTUWETHFRSA 03/16/19 11/14/24 History amlodipine 10 mg tablet 10 mg PO DAILY 11/15/24 11/21/24 History oxycodone-acetaminophen 5 mg-325 1 tab PO Q6H PRN PRN pain 5 days 11/15/24 Unknown Rx mg tablet #20 TABLETS warfarin 2.5 mg tablet 1.25 mg PO ACE 11/15/24 11/14/24 History enoxaparin 100 mg/mL subcutaneous mg 11/21/24 11/20/24 History syringe Allergy/AdvReac Type Severity Reaction Status Date / Time levofloxacin (From Levaquin) AdvReac Mild Nausea/Vom/ Verified 11/21/24 06:10 Diarrhea Surgical History History of cataract extraction with lens replacement History of back surgery History of lobectomy of lung Social History Smoking Status: Former smoker Review of Systems (Anesthesia) ROS Narrative System reviewed and no additional complaints, except as documented.
--- NOTE | 2024-11-21 07:22 | HP.PCM_ITS ---
History and Physical Date of Admission: 11/21/24 HPI - General General Date of Service: 11/15/24 Chief Complaint: Epigastric/right upper quadrant pain HPI Narrative JOVANI QUINONES, is a 74 M who presents with a 1 day history of worsening abdominal pain. Patient stated his pain started yesterday afternoon. He does not relate his symptoms to anything specific. He is unsure if they are food related. He notes the pain is located in the epigastric region and radiates straight into his back. Patient states the pain occurred again at 9pm last night and lasted all night until 0400AM when he could not handle the pain any longer, called the squad and came into the ED. Patient notes associated nausea with the pain. He notes occasional vomiting with the pain. He denies any bowel habit changes. He states he had a similar attack on Tuesday and was brought to the [facility] ED by his family. He was admitted and told that he would have his gallbladder removed. He was discharged on Tuesday without any intervention and never saw a surgeon during his admission. He was scheduled with Dr. Lowe for 11/27 to follow-up with. Patient denies any previous abdominal surgeries. He is on Coumadin for A Fib. He last took his Coumadin yesterday at 4:00pm. He states he follows with Dr. Pulido cardiology at [facility]. He notes he recently has been evaluated by his all source intelligence technician for his upcoming surgery on 11/[address] Lowe. He denies any history of cardiac stents, myocardial infarction, stroke, blood clots. 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 He denies any shortness of breath with rest or activity. He denies any previous complications or side effects with anesthesia. He states he has sleep apnea, however does not sleep with a CPAP because it was not comfortable. Abdominal u/s was obtained demonstrating solitary gallstone in the neck of the gallbladder. Several tiny gallbladder polyps. Mild thickening of the gallbladder wall. WBC is 7.4, Hgb 14.2, Hct 41.4, plt 125. INR 3.3. T Bili 1.08, AST 52, ALT 36, Alk Phos 57. [facility] Medical History Gallstone Home Medications ?Medication ?Instructions ?Recorded ?Last Taken ?Type atorvastatin 20 mg tablet 20 mg PO QHS cholesterol lowering 05/04/18 History doxazosin 8 mg tablet 8 mg PO QHS prostate 06/29/17 05/04/18 H istory omeprazole 20 mg capsule,delayed 20 mg PO DAILY acid reflux 06/29/1703/05 05:00 History release carvedilol 12.5 mg tablet 6.25 mg PO QHS 03/16/19 03/21/19 05:00 H istory warfarin 2.5 mg tablet 2.5 mg PO MOTUWETHFRSA 03/16/19 Unknown History amlodipine 10 mg tablet 10 mg PO DAILY 11/15/24 Unknown History oxycodone-acetaminophen 5 mg-325 1 tab PO Q6H PRN PRN pain 5 days 5 Unknown Rx mg tablet #20 TABLETS warfarin 2.5 mg tablet 1.25 mg PO ACE 11/15/24 Unknown History Allergy/AdvReac Type Severity Reaction Status Date / Time levofloxacin (From [facility]) AdvReac Mild Nausea/Vom/ Verified 11/15/24 01:39 Diarrhea Social History Smoking Status: Former smoker ROS Constitutional Constitutional: Reports systems reviewed and no addt'l complaints, except as documented Eyes Eyes: Reports systems reviewed and no addt'l complaints, except as documented ENT HEENT: Reports systems reviewed and no addt'l complaints, except as documented Cardiovascular Cardiovascular: Reports systems reviewed and no addt'l complaints, except as documented Respiratory/Chest Respiratory/Chest: Reports systems reviewed and no addt'l complaints, except as documented Gastrointestinal Gastrointestinal: Reports systems reviewed and no addt'l complaints, except as documented Genitourinary Genitourinary: Reports systems reviewed and no addt'l complaints, except as documented Musculoskeletal Musculoskeletal: Reports systems reviewed and no addt'l complaints, except as documented Integumentary Integumentary: Reports systems reviewed and no addt'l complaints, except as documented Neurologic Neurologic: Reports systems reviewed and no addt'l complaints, except as documented Psychiatric Psychiatric: Reports systems reviewed and no addt'l complaints, except as documented Endocrine Endocrinology: Reports systems reviewed and no addt'l complaints, except as documented Hematologic/Lymphatic Hematologic/Lymphatic: Reports systems reviewed and no addt'l complaints, except as documented Allergic/Immunologic Allergic/Immunologic: Reports systems reviewed and no addt'l complaints, except as documented Vital Signs Vital Signs Vital Signs: 11/15/2500:39 11/15/2502:00 11/15/2504:00 Temperature 97.8 F Temperature Source Oral Pulse Rate 67 67 83 Respiratory Rate 20 H 12 18 Blood Pressure 139/83 H 144/79 H 118/87 H Blood Pressure Mean 101 100 97 Pulse Ox 98 98 95 Oxygen Delivery Method Room Air Room Air 11/15/2508:00 11/15/2509:32 Temperature 97.8 F Temperature Source Pulse Rate 70 67 Respiratory Rate 16 Blood Pressure 104/60 127/109 H Blood Pressure Mean 74 115 Pulse Ox 92 97 Oxygen Delivery Method Room Air Weight Weight: 180 lb 1.883 oz Body Mass Index (BMI) 26.6 Physical Exam Const alert, oriented x3 and no apparent distress HEENT normocephalic and head/scalp atraumatic Eyes PERRL Neck full ROM Resp normal respiratory effort and clear to auscultation bilaterally Cardio regular rate and regular rhythm GI GI Narrative: Abdomen- soft, slight tenderness in the epigastric region. Negative Armas's sign. Positive bowel sounds no CVA tenderness Back/Spine no CVA tenderness Extremity normal to inspection Skin no rashes or lesions noted Neuro no focal motor deficits and no sensory deficits noted Psych mental status grossly normal Results Lab / Micro Data 11/15/24 01:48 11/15/24 01:48 Labs: Laboratory Results - last 24 hr 11/15/24 01:48: WBC 7.4, RBC 4.32 L, Hgb 14.2, Hct 41.4, MCV 95.8 H, MCH 32.9 H, MCHC 34.3, RDW Std Deviation 46.5 H, RDW Coeff of Jes 13.1, Plt Count 125 L, MPV 10.8, Immature Gran % (Auto) 0.300, Neut % (Auto) 60.3, Lymph % (Auto) 27.5, Smyth % (Auto) 9.5, Eos % (Auto) 1.9, Baso % (Auto) 0.5, Absolute Neuts (auto) 4.5, Absolute Lymphs (auto) 2.03, Nucleated RBC % 0, Sodium 138, Potassium 3.8, Chloride 103, Carbon Dioxide 21.4, Anion Gap 13, BUN 21 H, Creatinine 1.17, Estim Creat Clear Calc 53.71, Est GFR (MDRD) Non-Af 65, BUN/Creatinine Ratio 17.6, Glucose 118 H, Calcium 9.8, Total Bilirubin 1.08, Direct Bilirubin 0.65 H, AST 52 H, ALT 36, Alkaline Phosphatase 57, Total Protein 6.5, Albumin 4.2, Globulin 2.2, Lipase 32 11/15/24 02:10: PT 34.3 H, INR 3.3 Rhythm Strip Rhythm Strip: Sinus Rhythm Rate: 64 Ectopy: None Imaging Radiology Impression Abdomen Ultrasound 11/15/24 04:47 IMPRESSION: Solitary gallstone in the neck of the gallbladder. Several tiny gallbladder polyps. Mild thickening of the gallbladder wall. Reading Location: [facility] Assessment & Plan Assessment/Plan (1) Symptomatic cholelithiasis: (2) Current use of mechatronics technician anticoagulation: PLAN: Plan I am seeing this patient in conjunction with Dr. Christianson. He has independently evaluated this patient. Patient presents with chronic biliary colic from his cholelithiasis. Patient's RUQ u/s and examination show gallbladder disease, however not acute cholecystitis. It has been discussed with the patient that he has a stone in the neck of the gallbladder, which is likely the cause of the epigastric pain each time he eats, especially a fatty meal. Patient's WBC is normal with no left shift. His AST is slightly elevated, otherwise normal liver enzymes. He is not jaundice. We discussed with the patient that he will need to have a cholecystectomy as an outpatient, not acutely. Patient will need to refrain from fatty, greasy foods. He will need to stay on a low fat diet, consuming lean meats. He will need to avoid especially butter, salad dressing and red meats. He will need to hold his Coumadin for 5 days prior to the procedure. Our office has sent a cardiac clearance form to Dr. Cano's, patient's all source intelligence technician out of [facility]. Our helmet hat sweatband puncher will schedule patient for next Tuesday, 11/21, for a laparoscopic cholecystectomy with intraoperative cholangiogram with Dr. Christianson. Procedure details, risks and benefits have been explained to the patient. Patient has had the opportunity to ask and have questions answered. Patient will be discharged from the ED and given instructions from our office for surgery. Patient's INR will be rechecked the morning of surgery. Patient's INR will need to be below 1.5. Charges/Coding Visit Charges OBSV E&M: 83662 Observ/hosp same date L2 11/15/24 1133 <Electronically signed by Raisa HERRERA PA-C> Cosigner Signature (if applicable): CC: BLANCA Rainey; Dr. Herminio Yee MD; Dr. Gregory Christianson MD~ Signed ADDENDUM by Dr. Gregory Christianson MD on 11/15/24 at 1702 Addendum Examined alongside of Mrs. Rainey. Agree with her documentation provided above. Patient is 74-year-old male with evidence of symptomatic cholelithiasis and biliary colic. Previously evaluated at outside hospital with [facility] earlier this month no cholecystitis evidence was found. Patient had recurrence of his pain and presented to our ER. Once again he has normal white blood cell count and no left shift. While right upper quadrant ultrasound showed borderline wall thickening he has no tenderness for me on exam. I do believe that his symptoms are directly related to the position of his solitary gallstone within his gallbladder neck. Given that he is therapeutic on warfarin anticoagulation and there are no noe signs of acute cholecystitis I recommend short interval outpatient follow-up for cholecystectomy. Examples of foods to incorporate into a diet and also exclude from a diet were reviewed at length with patient. We will tentatively plan to perform laparoscopic cholecystectomy with intraoperative cholangiography and primary repair of an umbilical hernia on 11/21/2024. Will seek preoperative clearance from patient's all source intelligence technician to hold Coumadin ideally targeting a preoperative INR of 1.5 or less. I have examined the patient the following changes are noted: Patient confirms that he has done well in his restrictive diet and has no abdominal pain. He also confirms that he held his warfarin and enacted a Lovenox bridge. His INR this morning is 1.5 which is acceptable for proceeding to the operating room. Procedure?including cholecystectomy as well as primary umbilical hernia repair were discussed in detail. Postoperative expectations were also reviewed. Consents have been addended to include primary umbilical hernia repair. Will now proceed to the operating room as scheduled.
[2024-11-21] MEDS: Cefazolin 2 GM in Syringe IV (07:30)
--- NOTE | 2024-11-21 07:30 | GALL_PTH ---
PATIENT: JOVANI QUINONES LOC: [facility] U#:[id number] AGE/SX: 74/M ROOM: [facility] [place] RE11/21/[address]: Dr. Gregory Christianson MD : [id number] BED: 1 DIS: 11/22/2024 SPEC #: [id number] RECD: 11/21/24 13:08 STATUS: BHUPENDRA HORTON #: [id number] KAYLA: 11/21/24 07:[address]: Gregory Christianson DEPT: SURGICAL PATHOLOGY RECD BY: Josue Newman ENTERED: 11/21/24 13:08 SP TYPE: JIMBO DA SILVA DR: Dr. Herminio Yee MD Tissues: A - Gallbladder, NOS Procedures: Surgery Specimen Level III HEADER OPERATION: Laparoscopic, cholecystectomy with IOC PRE-OP DIAGNOSIS: Symptomatic cholelithiasis, current use of fci anticoagulation TISSUE SUBMITTED: A- Gallbladder MICROSCOPIC DIAGNOSIS A. Gallbladder, cholecystectomy: * Chronic cholecystitis. MICROSCOPIC DESCRIPTION Slides are reviewed. GROSS DESCRIPTION A. Received in fixative is one container labeled with the patient's name and designated Gallbladder. The specimen consists of one gallbladder measuring 9 x 2.5 x 2cm. The serosal surface is shiny and partially green bile stained. The hepatic bed is intact and is marked with black ink. Opening the gallbladder along the serosal surface reveals a copious amount of greenish-black fluid. The mucosal surface is unremarkable. There is a smqall amount of fine grit present but no well-formed calculi identified. Gin Inspector sections are submitted in one cassette. 11/21/2024 CPT:07518
--- NOTE | 2024-11-21 07:53 | RAD_ITS ---
PROCEDURE: CHOLANGIOGRAM/ O R,INITIAL; O.R. FLUORO FOR C-ARM 11/21/2024 REASON FOR EXAM: PAIN; IOC TECHNIQUE: Intraoperative fluoroscopy for intraoperative cholangiogram, presumably following cholecystectomy. Multiple fluoroscopic images were also obtained. COMPARISON: None. RAD/Cholangiogram/ O R,Initial IMPRESSION: Intraoperative fluoroscopy for intraoperative cholangiogram, presumably followi ng cholecystectomy. Multiple fluoroscopic images were also obtained. On the presented images, no retained ductal stone is ident ified. Reading Location: [id number]
--- NOTE | 2024-11-21 07:53 | RAD_ITS ---
PROCEDURE: CHOLANGIOGRAM/ O R,INITIAL; O.R. FLUORO FOR C-ARM 11/21/2024 REASON FOR EXAM: PAIN; IOC TECHNIQUE: Intraoperative fluoroscopy for intraoperative cholangiogram, presumably following cholecystectomy. Multiple fluoroscopic images were also obtained. COMPARISON: None. RAD/O.R. Fluoro for C-Arm IMPRESSION: Intraoperative fluoroscopy for intraoperative cholangiogram, presumably followi ng cholecystectomy. Multiple fluoroscopic images were also obtained. On the presented images, no retained ductal stone is ident ified. Reading Location: [id number]
[2024-11-21] MEDS: Bupiv/Epi 0.25% 30 ML Vial (09:35)
--- NOTE | 2024-11-21 09:46 | OP.PCM_ITS ---
Operative Report (Standard) Operative Information Date of Procedure: 11/21/24 Pre-Operative Diagnosis: 1. Biliary colic with symptomatic cholelithiasis 2. Umbilical hernia Post-Operative Diagnosis: 1. Chronic cholecystitis 2. Umbilical hernia with chronically incarcerated fat measuring 1.5 cm in diameter for fascial defect Surgery/Procedure Performed: 1. Laparoscopic cholecystectomy with intraoperative cholangiogram 2. Primary repair of umbilical hernia rerolling machine operator: Yes Piling Cutter: Jeannine Garcia Tasks completed by sampler first: Opening & closing, Hemostasis: Electrocautery, Retracting and Other (Operation of laparoscopic camera) Type of Anesthesia: General/Supplemental RN Documented Start/Stop Times: Operation Date: 11/21/24 07:30 Case Time Into Pre-Op 11/21/24 06:01 Out of Pre-Op 11/21/24 07:26 Anesthesia Start 11/21/24 07:30 Into Room 11/21/24 07:30 Procedure Start 11/21/24 07:55 Procedure End 11/21/24 09:46 Anesthesia End 11/21/24 09:51 Out of Room 11/21/24 09:51 Into Recovery 11/21/24 09:54 Out of Recovery 11/21/24 11:54 Procedure Start Time: 07:55 Procedure Stop Time: 09:46 Select all DRAINS/GRAFTS/IMPLANTS that apply: None Estimated Blood Loss: 25 Specimen collected: Yes Description of specimen(s) removed: Gallbladder Description of surgery: After proper identification in the preoperative holding area the patient was brought to the operating room where he was positioned supine on the operating room table. Preoperatively SCDs were placed and antibiotics were administered with 2 g Ancef. General anesthesia was then induced and an orogastric tube was placed by anesthesia. Patient's abdomen was prepped and draped in usual sterile fashion. A formal timeout was conducted to confirm both patient and the procedure. Procedure was begun with a curvilinear infraumbilical incision incision which was extended deeply down to the level of the fascia with electrocautery. I used a hemostat to bluntly dissect out and encircled the umbilical stalk and took great care to avoid injury to the overlying skin. The overlying umbilical skin was detached from the hernia sac sharply with use of a scalpel against the dermis. Circumferentially scar tissue and hernia sac adhesions were dissected free of the chronically incarcerated hernia fat contents. With this circumferential dissection we are able to fully reduce these hernia contents and visualize the fascial defect; this measured 1.5 cm round. The underside of the fascia was then palpated and I found some additional adherent fatty tissue and adhesions to the original hernia contents so I attempted to perform a finger sweep and disrupt these connections but unfortunately this resulted in tearing of a small vessel within the hernia contents resulting in some bleeding. This bleeding was quickly controlled with the application of selective electrocautery and the remainder of the adhesions were taken down. A 12 mm balloon trocar was inserted through this fascial opening. Pneumoperitoneum was established at 12 mmHg. Three additional trocars (all 5 mm) were placed in the epigastrium and in the right upper quadrant under laparoscopic visualization. Inspection of the peritoneum revealed no inadvertent injury to the viscera below. The gallbladder was visualized with with evidence of mild chronic inflammation. Given patient's history with anticoagulation I was very careful to take these adhesions down with use of electrocautery where it proved safe to do so with a short distance to the nearby small bowel. The gallbladder fundus was then grasped and elevated cephalad. Then, using careful dissection the peritoneum was opened and the structures of the hepatocystic triangle were delineated. Once the critical view of safety was obtained, the cystic duct was singly clipped and partially divided with a ductotomy. With this ductotomy there is immediate backflow of bile. Using an [place] clamp, a cholangiocatheter was fed into the proximal segment of the cystic duct and clamped into place. Under fluoroscopy a cholangiogram was then obtained showing a standard length cystic duct flowing into a common bile duct with unobstructed antegrade flow of contrast into the duodenum. There was also retrograde flow through the common hepatic duct into the right and left hepatic ducts. Satisfied with this result, the cholangiocatheter was withdrawn and the proximal cystic duct was sealed with 2 Hem-o-tonya clips and the cystic duct was completely transected. The same process was used for the cystic artery which appeared to be branching into anterior and posterior components. The gallbladder was then removed from the gallbladder fossa with the use of electrocautery. Selective electrocautery was used to obtain hemostasis in the gallbladder fossa. Interestingly near the fundal portion of the gallbladder I encountered some minor bleeding and was able to trace the cystic artery which appeared to run superficially parallel in the gallbladder fossa and give off terminal branches to this portion of the gallbladder as well. Additional dissection was undertaken to isolate these branches as they extended off the surface of the liver and they were ligated with application of hemoclips before being divided sharply. With the gallbladder still attached via a very slight remnant the liver was retracted and inspected for hemostasis. Additional selective electrocautery was employed to address some mild oozing in the midportion of the gallbladder fossa. In the gallbladder was completely amputated and was placed in an Endo Catch bag for removal from the peritoneum. Morison's pouch was irrigated and the effluent was suctioned free of the peritoneum. Hemostasis was again confirmed in the fossa. The focus of the laparoscope was also turned to the umbilicus to confirm hemostasis around our prior dissection of the hernia sac. While I confirmed hemostasis I found some adherent preperitoneal fat that appeared to potentially inhibit fascial closure so this was divided under laparoscopic direction with the L-hook electrocautery. With this complete the gallbladder was removed from the umbilical incision and pneumoperitoneum was evacuated. The fascia of the hernia defect/infraumbilical incision site was closed in an interrupted fashion with 3x 0 Prolene [id number] sutures. A total of 30 mL of anesthetic was injected at the port sites for postoperative pain control. The skin of each port site was then closed in subcuticular fashion using 4-0 Monocryl. The skin of the umbilical stalk was tacked down to the fascia with a single interrupted suture with a 4-0 Monocryl. Lastly, a 4-0 Monocryl was used to close the skin in a running subcuticular technique. Steri's were applied and a rolled Telfa was placed into the umbilical concavity. A OpSite dressing was placed atop this and the area around the Telfa roll was evacuated to provide a bit of a compressive dressing. This concluded the formal portion of the case and the patient was allowed to awaken from general anesthetic. He was taken to PACU for ongoing recovery. Surgical Findings: ? Small umbilical hernia containing incarcerated preperitoneal fat ? Evidence of chronic cholecystitis with adhesions between the omentum and the infundibular portion of the gallbladder ? Cholangiogram showing antegrade filling of the common bile duct without filling defect as well as retrograde filling of the common hepatic and proper hepatic ducts without extravasation ? Dominant cystic artery giving off anterior and posterior branches in the usual location as well as to distal branches at the distal (fundal) aspect of of the gallbladder Complications Complications: No Admit VTE Documentation VTE Mechan Device Prophylaxis: SCD's
--- NOTE | 2024-11-21 09:51 | DCINST_ITS ---
Discharge Instructions Diet Discharge Diet: No restrictions Activity Discharge Activity: May Not Drive (No driving while using narcotic pain medication) and May Shower (Postoperative day 1) May shower in (days): 2 Ice area for (Minutes): 20 Lifting Restrictions: No lifting greater than 15 pounds for 4 weeks after surgery Dressing / Incision Call your doctor if your incision/area has: Continuous Slow Oozing, Increased Pain/ Swelling, Increased Redness, Foul Smelling Discharge and Swelling at the incision site Call your doctor if you observe: Fever of 101 or Higher Remove Dressing in: 2 days (Please leave Steri-Strips intact until they fall off spontaneously or are taken off at your follow-up visit) Cleanse incision/area with: Soap & Water Follow Up Care Please Follow Up With: Gregory Christianson MD When: 7-10days postop Test Results: Test results from this visit will be discussed in further detail at your follow- up appointment, if applicable. Discharge Plan Admission Admit Date/Time: 11/21/24 12:06 Primary Reason for Your Visit: Gallbladder removal and umbilical hernia repair Attending Provider: Gregory Christianson Primary Care Provider: Herminio Yee Instructions Additional Instructions / Restrictions: Recommend restarting Lovenox and Coumadin tonight and continue to follow with the instructions according to the Coumadin clinic Discharge Orders/Prescriptions Prescriptions: New oxycodone 5 mg tablet 5 mg PO Q6H PRN (Reason: pain) 3 Days Qty: 14 0RF Continued atorvastatin 20 MG tablet 20 mg PO QHS doxazosin 8 MG tablet 8 mg PO QHS omeprazole 20 MG capsule,delayed release(DR/EC) 20 mg PO DAILY carvedilol 12.5 MG tablet 6.25 mg PO QHS warfarin 2.5 MG tablet 2.5 mg PO MOTUWETHFRSA enoxaparin 100 mg/mL syringe Patient Comments: EXPEL TO 90 MG/ 0.9 ML, THEN INJECT SUBCUTANEOUSLY EVERY 12 HOURS OR DIRECTED. amlodipine 10 mg tablet 10 mg PO DAILY warfarin 2.5 mg tablet 1.25 mg PO ACE oxycodone-acetaminophen 5-325 mg tablet 1 tab PO Q6H PRN PRN (Reason: pain) 5 Days Qty: 20 0RF Referrals / Follow Up: Herminio Yee MD [Primary Care Provider] - Disposition Disposition (needs filled in before D/C Order can be placed): Home, Self Care
--- NOTE | 2024-11-21 09:56 | PCM.POST.ANE ---
Anesthesia: Postop Eval I Current Vital Signs Temperature: 96.8 F Pulse Rate: 80 Blood Pressure: 100/70 Respiratory Rate: 18 Pulse Ox: 98 Oxygen Delivery Method: Nasal Cannula Oxygen Flow Rate (L/min): 2 Assessment Airway patent: Yes Spontaneous unlabored respirations: Yes Mental status: Awake nausea: No Vomiting: No Anesthesia Complication: No Fluid Hydration Crystalloid volume administer (ml): 1,500 Total IV fluid infused: 1,500 Progress Note Anesthesia document: Postop Eval 1 completed: Yes
[2024-11-21] MEDS: Ketorolac 15 MG/ML Vial IV (10:18)
[2024-11-21 11:12] LABS: INR Fingerstick 1.5; Prothrombin Time Fingerstick 17.7 SEC (11.7-14.9)
--- NOTE | 2024-11-21 14:11 | POSTOPAN2_ITS ---
Anesthesia Postop Eval I Sum Postop Eval Completion status Anesthesia document: Postop Eval 1 completed: Yes Anesthesia Postop Eval I Summary Anesthesia Postop Eval I Summary: Anesthesia Postop Eval I: Assessment Summary Airway patent Yes 11/21/24 09:57 DOWEL STICKER OPERATOR.[email or web address] Spontaneous unlabored Yes 11/21/24 09:57 DOWEL STICKER OPERATOR.[email or web address] respirations Mental status Awake 11/21/24 09:57 DOWEL STICKER OPERATOR.[email or web address] nausea No 11/21/24 09:57 DOWEL STICKER OPERATOR.[email or web address] Vomiting No 11/21/24 09:57 DOWEL STICKER OPERATOR.[email or web address] Anesthesia Postop Eval I: Fluid Summary Crystalloid volume administer 1,500 11/21/24 09:57 DOWEL STICKER OPERATOR.JCLI (ml) Colloids volume administered ( ml) Blood Product volume administered (ml) Total IV fluid infused 1,500 11/21/24 09:57 DOWEL STICKER OPERATOR.KIMANI Anesthesia Postop Eval I: Summary Notes Anesthesia Complication No 11/21/24 09:57 DOWEL STICKER OPERATOR.[email or web address] Anesthesia Complication Comment: Post-operative progress note Anesthesia: Postop Eval II Evaluation Mental status: Awake Pain Level: 2 nausea: No Vomiting: No
--- NOTE | 2024-11-21 14:11 | PCM.POSTANE2 ---
Anesthesia Postop Eval I Sum Postop Eval Completion status Anesthesia document: Postop Eval 1 completed: Yes Anesthesia Postop Eval I Summary Anesthesia Postop Eval I Summary: Anesthesia Postop Eval I: Assessment Summary Airway patent Yes 11/21/24 09:57 IMAGING CENTER MANAGER.[email or web address] Spontaneous unlabored Yes 11/21/24 09:57 IMAGING CENTER MANAGER.KIMANI respirations Mental status Awake 11/21/24 09:57 IMAGING CENTER MANAGER.[email or web address] nausea No 11/21/24 09:57 IMAGING CENTER MANAGER.[email or web address] Vomiting No 11/21/24 09:57 IMAGING CENTER MANAGER.KIMANI Anesthesia Postop Eval I: Fluid Summary Crystalloid volume administer 1,500 11/21/24 09:57 IMAGING CENTER MANAGER.JCLI (ml) Colloids volume administered ( ml) Blood Product volume administered (ml) Total IV fluid infused 1,500 11/21/24 09:57 IMAGING CENTER MANAGER.KIMANI Anesthesia Postop Eval I: Summary Notes Anesthesia Complication No 11/21/24 09:57 IMAGING CENTER MANAGER.[email or web address] Anesthesia Complication Comment: Post-operative progress note Anesthesia: Postop Eval II Evaluation Mental status: Awake Pain Level: 2 nausea: No Vomiting: No
[2024-11-21] MEDS: Doxazosin 4 MG Tablet 8 MG PO (21:21)
[2024-11-21] MEDS: Atorvastatin Calcium 20 MG Tablet PO (21:22)
[2024-11-21] MEDS: Carvedilol 6.25 MG Tablet PO (21:22)
[2024-11-21] MEDS: 0.9% Saline Lock 10 ML Syringe IV (21:25)
[2024-11-22 00:44] VITALS: BP 121/78; PULSE 91; RESP 16; TEMP 36.7; O2SAT 92
[2024-11-22 04:44] VITALS: BP 109/68; PULSE 71; RESP 17; TEMP 36.4; O2SAT 95
[2024-11-22 06:27] LABS: Absolute Lymphocyte Count 0.88 X10^3/uL (0.83-4.51); Absolute Neutrophil Count 6.8 X10^3/uL (2.0-7.7); Basophil# 0.01 X10^3/uL; Basophil% 0.1 % (0-1); Hematocrit 34.1 % (40-54); Hemoglobin 11.8 g/dL (13.0-16.5); Lymphocyte # 0.88 X10^3/ul (0.83-4.51); Lymphocyte % 10.6 % (19-41); Mean Corp Hgb Conc 34.6 g/dL (32-36); Mean Corpuscular Hgb 33.5 pg (27.0-32.0); Mean Corpuscular Volume 96.9 fL (80-94); Mean Platelet Vol. 11.6 fl (6.2-12.0); Monocyte# 0.52 X10^3/uL; Monocyte% 6.3 % (0-10); NRBC Flagged by Analyzer 0 % (0-5); Neutrophil # 6.84 X10^3/uL (2.7-7.7); Neutrophil % 82.8 % (47-70); Platelet Count 114 K/mm3 (150-450); RBC Distribution Width CV 13.2 % (11.6-14.6); RBC Distribution Width SD 46.9 fl (35.1-43.9); Red Blood Count 3.52 M/mm3 (4.6-6.2); White Blood Count 8.3 K/mm3 (4.4-11.0)
[2024-11-22 07:08] LABS: ALB/GLOB Ratio 1.9 RATIO (0.9-2.4); AST(SGOT) 35 U/L (<=37); Alanine Aminotransfer ALT/SGPT 34 U/L (<=46); Albumin, Serum 3.6 g/dL (3.4-4.8); Alkaline Phosphatase 52 U/L (40-129); Anion Gap 11 (5-15); BUN 18 mg/dL (4-19); BUN/Creat Ratio 16.4 RATIO (10-20); Calcium,Total 8.9 mg/dL (7.6-11.0); Carbon Dioxide 20.7 mmol/L (21.0-32.0); Chloride 104 mmol/L (98-108); Creatinine, Serum 1.07 mg/dL (0.70-1.20); EST Glomerular Filtration Rate 72 (>60); Estimated Creatinine Clearance 63.82 ml/min (50-250); Globulin 1.9 g/dL (2.2-4.2); Glucose 146 mg/dL (70-99); Protein, Total 5.6 g/dL (5.9-8.4); Sodium Level 136 mmol/L (133-145); Total Bilirubin 0.48 mg/dL (0.00-1.30)
[2024-11-22 08:00] VITALS: BP 119/72; PULSE 73; RESP 15; TEMP 36.9; O2SAT 93
[2024-11-22] MEDS: amLODIPine 10 MG Tablet PO (08:32)
[2024-11-22] MEDS: Pantoprazole Sodium 20 MG Tablet PO (08:34)
[2024-11-22] MEDS: Docusate Sodium 100 MG Capsule PO (09:31)
[2024-11-22] MEDS: Tamsulosin HCl 0.4 MG Capsule PO (09:31)
[2024-11-22 09:53] VITALS: O2SAT 90
--- NOTE | 2024-11-22 10:18 | PCM.PN.SRG ---
Subjective Subjective Patient evaluated resting comfortably in bed. He notes sore muscles, however no true pain. He denies any nausea, vomiting. He notes slight difficulty with urination. He notes he is going however feels he is not fully emptying. Patient has tolerated a regular diet well. Objective Data Objective Data Vital Signs: Vital Signs Temp Pulse Resp BP Pulse Ox O2 Del Method O2 Flow Rate 98.4 F 73 15 119/72 90 Room Air 2 11/22/24 08:00 11/22/24 08:00 11/22/24 08:00 11/22/24 08:00 11/22/24 09:53 11/22/24 09:53 11/21/24 11:00 Oxygen Flow Rate (L/min) 2 Oxygen Delivery Method Room Air Weight: 189 lb 9.561 oz Body Mass Index (BMI) 28.0 Intake & Output: Intake and Output for Last 24 Hours 11/20/24 11/21/24 11/22/24 23:59 23:59 23:59 Intake Total 1370 / 1370 300 / 300 Balance 1370 / 1370 300 / 300 Lab / Micro Data 11/22/24 05:08 11/22/24 05:08 Labs: Laboratory Results - last 24 hr 11/21/24 05:58: POC PT 17.7 H, INR 1.5 11/22/24 05:08: WBC 8.3, RBC 3.52 L, Hgb 11.8 L, Hct 34.1 L, MCV 96.9 H, MCH 33.5 H, MCHC 34.6, RDW Std Deviation 46.9 H, RDW Coeff of Ejs 13.2, Plt Count 114 L, MPV 11.6, Immature Gran % (Auto) 0.200, Neut % (Auto) 82.8 H, Lymph % (Auto) 10.6 L, [place] % (Auto) 6.3, Eos % (Auto) 0.0, Baso % (Auto) 0.1, Absolute Neuts (auto) 6.8, Absolute Lymphs (auto) 0.88, Nucleated RBC % 0, Sodium 136, Potassium 4.0, Chloride 104, Carbon Dioxide 20.7 L, Anion Gap 11, BUN 18, Creatinine 1.07, Estim Creat Clear Calc 63.82, Est GFR (MDRD) Non-Af 72, BUN/Creatinine Ratio 16.4, Glucose 146 H, Calcium 8.9, Total Bilirubin 0.48, AST 35, ALT 34, Alkaline Phosphatase 52, Total Protein 5.6 L, Albumin 3.6, Globulin 1.9 L, Albumin/Globulin Ratio 1.9 Radiography Diagnostic Testing: Radiology Impression C-Arm Fluoroscopy 11/21/24 07:53 IMPRESSION: Intraoperative fluoroscopy for intraoperative cholangiogram, presumably following cholecystectomy. Multiple fluoroscopic images were also obtained. On the presented images, no retained ductal stone is identified. Reading Location: [address] Cholangiogram 11/21/24 07:53 IMPRESSION: Intraoperative fluoroscopy for intraoperative cholangiogram, presumably following cholecystectomy. Multiple fluoroscopic images were also obtained. On the presented images, no retained ductal stone is identified. Reading Location: [address] Physical Exam GI GI Narrative: Abdomen- soft, nontender. Incisions c/d/i except for umbilical incision. Umbilical incision is noted to have some bloody drainage. Telfa was used with tegaderm dressing. Assessment & Plan Assessment/Plan (1) S/P laparoscopic cholecystectomy: (2) Umbilical hernia: PLAN: Plan I am following this patient in conjunction with Dr. Christianson. He has independently evaluated this patient. Labs reviewed. Unremarkable Flomax x 1 ordered to give now Colace ordered to assist with bowel movements Reday for discharge Charges/Coding Visit Charges Inpatient E&M: 71371 Subs Hosp L1 (post-op; no charge)
--- NOTE | 2024-11-22 11:50 | CASEMGMT ---
RN CM NOTE: DC order is in. RN CM to room. Introduced self and role. Pt and deny having any concerns w/going home and deny dc needs. Yuri SMITHN RN CM
== END 2024-11-22 12:26 | disposition home or self-care (01) ==
LOC: SDC 12:13 → MS3 12:13
PROVIDERS: Physician Assistant; Admitting Provider Surgery; PCP Family Medicine; Referring Provider Surgery; Visit Provider Surgery
PROC: (CPT 47610; principal; 2024-11-21 07:10)
DX: K80.64 Calculus of gallbladder and bile duct with chronic cholecystitis without obstruction (principal); I48.91 Unspecified atrial fibrillation; K42.9 Umbilical hernia without obstruction or gangrene; K66.0 Peritoneal adhesions (postprocedural) (postinfection); E78.00 Pure hypercholesterolemia, unspecified; Z79.01 Long term (current) use of anticoagulants; Z79.899 Other long term (current) drug therapy; Z86.718 Personal history of other venous thrombosis and embolism; Z86.711 Personal history of pulmonary embolism; Z87.891 Personal history of nicotine dependence
CPT/HCPCS: 47563; 00790; 36415; 36416; 74300; 76000; 80053; 85025; 85610; 88304; 93005; 94668; 99221; 99406; A4216; G0378; J2405